=== PATIENT | female | born 1980 | race Caucasian/White ===

== ENCOUNTER 2020-10-23 18:56 | Inpatient (IN) | payer OTHER ==
[2020-10-23] MEDS ORDERED: ASPIRIN 81 MG PO STA (19:15)
--- NOTE | 2020-10-23 19:21 | ED ---
General Adult HPI - General Chief complaint: Arrhythmia/Palpitations Stated complaint: palpitations, SOB Time Seen by Provider: 10/23/20 19:08 Source: patient, family, RN notes reviewed Mode of arrival: ambulatory Limitations: no limitations - History of Present Illness Initial comments: Patient is a pleasant 40-year-old female presenting to the emergency Department with complaints of palpitations. Onset of symptoms was several days ago. Symptoms have progressively worsened. Patient is also having some dyspnea that is worse with exertion. Patient is also noticing some ankle swelling. No calf pain. No chest pain. No history of similar symptoms previously. Patient does have history of hyperthyroid and has not been on her medication recently - Related Data Allergies Allergy/AdvReac Type Severity Reaction Status Date / Time meperidine [From Demerol] Allergy syncope Verified 10/23/20 19:04 moxifloxacin [From Avelox] Allergy palpitation Verified 10/23/20 19:04 s Review of Systems ROS Statement: Those systems with pertinent positive or pertinent negative responses have been documented in the HPI. ROS Other: All systems not noted in ROS Statement are negative. Constitutional: Denies: fever Eyes: Denies: eye pain ENT: Denies: ear pain Respiratory: Reports: dyspnea. Denies: cough Cardiovascular: Reports: palpitations. Denies: chest pain Endocrine: Reports: fatigue Gastrointestinal: Denies: abdominal pain Genitourinary: Denies: urgency Musculoskeletal: Denies: back pain Skin: Denies: rash Neurological: Denies: weakness Past Medical History Past Medical History: Thyroid Disorder History of Any Multi-Drug Resistant Organisms: None Reported Past Psychological History: No Psychological Hx Reported Smoking Status: Never smoker Past Alcohol Use History: None Reported Past Drug Use History: None Reported General Exam Limitations: no limitations General appearance: alert, in no apparent distress Head exam: Present: normocephalic Eye exam: Present: normal appearance, PERRL Neck exam: Present: normal inspection Respiratory exam: Present: normal lung sounds bilaterally Cardiovascular Exam: Present: tachycardia, normal heart sounds GI/Abdominal exam: Present: soft. Absent: tenderness Extremities exam: Present: normal inspection. Absent: pedal edema, calf tenderness Neurological exam: Present: alert Psychiatric exam: Present: normal affect, normal mood Skin exam: Present: normal color Course Vital Signs 10/23/20 10/23/20 10/23/20 18:58 19:39 20:03 Temperature 97.7 F Pulse Rate 127 H 116 H 108 H Respiratory 24 18 18 Rate Blood Pressure 209/79 196/143 196/79 O2 Sat by Pulse 97 97 99 Oximetry EKG Findings - EKG Comments: EKG Findings:: A. fib with RVR, rate 102. QRS 84. QT 308. QTC 41. Renal axis. Normal QRS. No acute ST change. Medical Decision Making - Medical Decision Making Patient has A. fib with RVR, rate up to 1:30. Mild pedal edema. Patient has hyperthyroidism. Case was discussed in detail with Dr. Shukla who will admit covered Dr. baker. He does request propanolol 60 mg by mouth 3 times a day as well as methimazole 25 mg 3 times a day. He is aware of slight elevation with d-dimer and pending CT. Patient reevaluated. Patient and family updated. Intravenous Cardizem has been started. IV heparin will also be started. - Lab Data Result diagrams: 10/23/20 19:31 10/23/20 19:31 Lab Results 10/23/20 10/23/20 10/23/20 Range/Units 19:31 19:31 19:31 WBC 6.5 (3.8-10.6) k/uL RBC 4.13 (3.80-5.40) m/uL Hgb 10.8 L (11.4-16.0) gm/dL Hct 33.4 L (34.0-46.0) % MCV 80.9 (80.0-100.0) fL MCH 26.2 (25.0-35.0) pg MCHC 32.4 (31.0-37.0) g/dL RDW 14.4 (11.5-15.5) % Plt Count 193 (150-450) k/uL MPV 9.7 Neutrophils % 62 % Lymphocytes % 23 % Monocytes % 9 % Eosinophils % 3 % Basophils % 0 % Neutrophils # 4.1 (1.3-7.7) k/uL Lymphocytes # 1.5 (1.0-4.8) k/uL Monocytes # 0.6 (0-1.0) k/uL Eosinophils # 0.2 (0-0.7) k/uL Basophils # 0.0 (0-0.2) k/uL PT 10.9 (9.0-12.0) sec INR 1.0 (<1.2) APTT 21.4 L (22.0-30.0) sec D-Dimer 0.80 H (<0.60) mg/L FEU Sodium 137 (137-145) mmol/L Potassium 4.5 (3.5-5.1) mmol/L Chloride 105 (98-107) mmol/L Carbon Dioxide 23 (22-30) mmol/L Anion Gap 9 mmol/L BUN 14 (7-17) mg/dL Creatinine 0.25 L (0.52-1.04) mg/dL Est GFR (CKD-EPI)AfAm >90 (>60 ml/min/1.73 sqM) Est GFR (CKD-EPI)NonAf >90 (>60 ml/min/1.73 sqM) Glucose 105 H (74-99) mg/dL Calcium 9.0 (8.4-10.2) mg/dL Magnesium 1.5 L (1.6-2.3) mg/dL Total Bilirubin 1.1 (0.2-1.3) mg/dL AST 39 H (14-36) U/L ALT 28 (4-34) U/L Alkaline Phosphatase 312 H (38-126) U/L Troponin I (0.000-0.034) ng/mL NT-Pro-B Natriuret Pep pg/mL Total Protein 7.4 (6.3-8.2) g/dL Albumin 3.7 (3.5-5.0) g/dL Free T4 5.97 H (0.78-2.19) ng/dL Free T3 pg/mL >22.8 H (2.8-5.3) pg/ml 10/23/20 10/23/20 Range/Units 19:31 19:31 WBC (3.8-10.6) k/uL RBC (3.80-5.40) m/uL Hgb (11.4-16.0) gm/dL Hct (34.0-46.0) % MCV (80.0-100.0) fL MCH (25.0-35.0) pg MCHC (31.0-37.0) g/dL RDW (11.5-15.5) % Plt Count (150-450) k/uL MPV Neutrophils % % Lymphocytes % % Monocytes % % Eosinophils % % Basophils % % Neutrophils # (1.3-7.7) k/uL Lymphocytes # (1.0-4.8) k/uL Monocytes # (0-1.0) k/uL Eosinophils # (0-0.7) k/uL Basophils # (0-0.2) k/uL PT (9.0-12.0) sec INR (<1.2) APTT (22.0-30.0) sec D-Dimer (<0.60) mg/L FEU Sodium (137-145) mmol/L Potassium (3.5-5.1) mmol/L Chloride (98-107) mmol/L Carbon Dioxide (22-30) mmol/L Anion Gap mmol/L BUN (7-17) mg/dL Creatinine (0.52-1.04) mg/dL Est GFR (CKD-EPI)AfAm (>60 ml/min/1.73 sqM) Est GFR (CKD-EPI)NonAf (>60 ml/min/1.73 sqM) Glucose (74-99) mg/dL Calcium (8.4-10.2) mg/dL Magnesium (1.6-2.3) mg/dL Total Bilirubin (0.2-1.3) mg/dL AST (14-36) U/L ALT (4-34) U/L Alkaline Phosphatase (38-126) U/L Troponin I 0.021 (0.000-0.034) ng/mL NT-Pro-B Natriuret Pep 801 pg/mL Total Protein (6.3-8.2) g/dL Albumin (3.5-5.0) g/dL Free T4 (0.78-2.19) ng/dL Free T3 pg/mL (2.8-5.3) pg/ml - Radiology Data Radiology results: image reviewed (Chest x-ray shows no acute process) Critical Care Time Critical Care Time: Yes Total Critical Care Time: 35 Disposition Clinical Impression: Atrial fibrillation with RVR, Hyperthyroidism Disposition: ADMITTED IP TO THIS [facility] Condition: Serious Is patient prescribed a controlled substance at d/c from ED?: No Referrals: Elba Serrano MD [Primary Care Provider] - 1-2 days Decision Time: 20:32
[2020-10-23 19:51] LABS: Basophils % (A) 0 %; Eosinophils # (A) 0.2 k/uL (0-0.7); Eosinophils % (A) 3 %; HCT 33.4 % (34.0-46.0); HGB 10.8 gm/dL (11.4-16.0); Lymphocytes # (A) 1.5 k/uL (1.0-4.8); Lymphocytes % (A) 23 %; MCH 26.2 pg (25.0-35.0); MCHC 32.4 g/dL (31.0-37.0); MCV 80.9 fL (80.0-100.0); Mean Platelet Volume 9.7; Monocytes # (A) 0.6 k/uL (0-1.0); Monocytes % (A) 9 %; Neutrophils # (A) 4.1 k/uL (1.3-7.7); Neutrophils % (A) 62 %; Platelet Count 193 k/uL (150-450); RBC 4.13 m/uL (3.80-5.40); RDW 14.4 % (11.5-15.5); WBC 6.5 k/uL (3.8-10.6)
[2020-10-23 20:02] LABS: ALT 28 U/L (4-34); AST 39 U/L (14-36); African American GFR (CKD) >90 (>60 ml/min/1.73 sqM); Albumin 3.7 g/dL (3.5-5.0); Alkaline Phosphatase 312 U/L (38-126); Anion Gap 9 mmol/L; Blood Urea Nitrogen 14 mg/dL (7-17); Carbon Dioxide 23 mmol/L (22-30); Chloride 105 mmol/L (98-107); Glucose 105 mg/dL (74-99); Magnesium 1.5 mg/dL (1.6-2.3); Non-African American GFR(CKD) >90 (>60 ml/min/1.73 sqM); Potassium 4.5 mmol/L (3.5-5.1); Sodium 137 mmol/L (137-145); Total Bilirubin 1.1 mg/dL (0.2-1.3); Total Protein 7.4 g/dL (6.3-8.2)
[2020-10-23] MEDS: DILTIAZEM 125 MG in SODIUM CHLORIDE 0.9% 100 ML IV SCH (20:03)
--- NOTE | 2020-10-23 20:03 | XR ---
EXAMINATION TYPE: XR chest 2V DATE OF EXAM: 10/23/2020 COMPARISON: NONE HISTORY: Palpitations. Short of breath TECHNIQUE: FINDINGS: Heart and mediastinum are within normal limits. Lungs are clear. Diaphragm is normal. There are chest leads. Bony thorax is intact. IMPRESSION: Normal chest.
[2020-10-23] MEDS ORDERED: MAGNESIUM SULFATE-D5W PMX 1 GM in DEXTROSE/WATER 1 100ML.BAG IVPB ONE (20:10)
[2020-10-23 20:11] LABS: Prothrombin Time 10.9 sec (9.0-12.0)
[2020-10-23 20:17] LABS: D-Dimer 0.8 mg/L FEU (<0.60)
[2020-10-23 20:18] LABS: Partial Thromboplastin Time 21.4 sec (22.0-30.0)
[2020-10-23 20:19] LABS: T4, Free (Free Thyroxine) 5.97 ng/dL (0.78-2.19)
[2020-10-23] MEDS ORDERED: HEPARIN SODIUM,PORCINE 5,000 UNIT/ML 1 ML VIAL IV ONE (20:32)
[2020-10-23] MEDS ORDERED: ACETAMINOPHEN TAB 325 MG TAB PO PRN (20:35)
[2020-10-23] MEDS ORDERED: NALOXONE 0.4 MG/ML 1 ML VIAL IV PRN (20:35)
[2020-10-23] MEDS: HEPARIN SOD,PORK IN 0.45% NACL 25,000 UNIT in 0.45% NACL 1 250ML.BAG IV SCH (20:49)
[2020-10-23] MEDS: SODIUM CHLORIDE 0.9% 1,000 ML IV SCH (20:55)
--- NOTE | 2020-10-23 21:37 | CT ---
EXAMINATION TYPE: CT angio chest DATE OF EXAM: 10/23/2020 COMPARISON: None HISTORY: Dyspnea. CT DLP: 211.1 mGycm Automated exposure control for dose reduction was used. CONTRAST: Performed with IV Contrast, patient injected with 100 mL of Isovue 370. Images obtained from the thoracic inlet to the diaphragm with IV contrast and 3-D post processed imag es. There is no mediastinal adenopathy. Thoracic aorta is intact. There is no aneurysm or dissection. The re is normal contrast opacification of the pulmonary arteries. There are no filling defects. There is no pleural effusion or pneumothorax. There are a few bronchial lymph nodes that measure less than 1 cm. Lungs are clear of consolidation. There is no evidence of a pulmonary mass. The bony thorax is intact . There is no thoracic compression fracture. IMPRESSION: Negative exam. No evidence of pulmonary embolism.
[2020-10-24 02:43] LABS: Basophils % (A) 0 %; Eosinophils # (A) 0.2 k/uL (0-0.7); Eosinophils % (A) 3 %; HCT 31.9 % (34.0-46.0); HGB 10.4 gm/dL (11.4-16.0); Lymphocytes # (A) 2.2 k/uL (1.0-4.8); Lymphocytes % (A) 28 %; MCH 26.8 pg (25.0-35.0); MCHC 32.7 g/dL (31.0-37.0); MCV 82.1 fL (80.0-100.0); Mean Platelet Volume 10.1; Monocytes # (A) 0.6 k/uL (0-1.0); Monocytes % (A) 8 %; Neutrophils # (A) 4.5 k/uL (1.3-7.7); Neutrophils % (A) 58 %; Platelet Count 185 k/uL (150-450); RBC 3.88 m/uL (3.80-5.40); RDW 14.4 % (11.5-15.5); WBC 7.7 k/uL (3.8-10.6)
[2020-10-24] MEDS: HEPARIN SODIUM,PORCINE 5,000 UNIT/ML 1 ML VIAL IV PRN ×2 (04:37→15:44)
[2020-10-24] MEDS: methIMAzole 5 MG TAB PO SCH ×4 (09:43→20:43)
[2020-10-24] MEDS: PROPRANOLOL 20 MG TAB PO SCH ×3 (09:43→20:43)
--- NOTE | 2020-10-24 10:44 | P.CRDCN ---
History of Present Illness History of present illness: HISTORY OF PRESENTING ILLNESS This is a pleasant 40-year-old female past medical history significant for hyperthyroidism for approximately 10 years who presents secondary to palpitations and chest discomfort for the last 3 days. She is not seeing a sharemilker previously. She admits she is fairly busy with her kids and forgot to follow her methimazole for the last 3 weeks and therefore has not been taking it. She started noticing a feeling like an elephant was on her chest or the past 2 days along with some lower extremity swelling and shortness of breath. She was found to be in new onset of atrial fibrillation with mild RVR heart rates in the 110s and 120s. Her TSH was noted to be low with high T4 and T3. She admits there has been discussion of possible thyroid ablation in the past however she has not wanted to do this. Patient had a CTA performed which showed no significant PE, no significant findings. She denies any history of hypertension, hyperlipidemia, TIA, stroke, PAD, CAD, diabetes mellitus. Has a history of brother with a "hole in the heart "with a stroke in the age of 30. She admits the feeling of an elephant on her chest has completely resolved. DIAGNOSTICS EKG reveals A. fib with mild RVR, chest CTA: No acute process, no PE Laboratory reviewed, hemoglobin 10.8, white blood cell 6.5, platelets 193, d- dimer 0.8, creatinine 0.25, magnesium 1.5, proBNP AL-1, troponin 0.02, 0.018, 0.019, TSH less than 0.015, free T4 5 0.9, free T3 greater than 22 Current cardiac medications include heparin drip, Cardizem drip REVIEW OF SYSTEMS At the time of my exam: CONSTITUTIONAL: Denies fever or chills. CARDIOVASCULAR: Denies chest pain, shortness of breath, orthopnea, PND or palpitations. RESPIRATORY: Denies cough. GASTROINTESTINAL: Denies abdominal pain, diarrhea, constipation, nausea or vomiting. MUSCULOSKELETAL: Denies myalgias. NEUROLOGIC: Denies numbness, tingling or weakness. ENDOCRINE: Denies fatigue, weight change, polydipsia or polyurina. GENITOURINARY: Denies burning, hematuria or urgency with micturation. HEMATOLOGIC: Denies history of anemia or bleeding. PHYSICAL EXAMINATION Vital signs reviewed CONSTITUTIONAL: No apparent distress. HEENT: Head is normocephalic. Pupils are equal, round. Sclerae anicteric. Mucous membranes of the mouth are moist. No JVD. No carotid bruit. CHEST EXAMINATION: Lungs are clear to auscultation. No chest wall tenderness is noted on palpation or with deep breathing. HEART EXAMINATION: Irregular rate and rhythm. S1, S2 heard. +2/6 systolic murmur, no gallops or rub. ABDOMEN: Soft, nontender. Positive bowel sounds. EXTREMITIES: 2+ peripheral pulses, no lower extremity edema and no calf te nderness. NEUROLOGIC EXAMINATION: Patient is awake, alert and oriented x3. ASSESSMENT 1. New-onset A. fib with RVR 2. Acute on chronic heart failure, presumed diastolic. May be high output failure from hyperthyroidism 3. Hyperthyroid, uncontrolled 4. Noncompliance with hyperthyroid medication 5. Systolic murmur 6. Anemia 7. Chest pain feeling like an elephant on her chest concerning for angina however may be related to A. fib. Troponin Negative 3 PLAN Patient with hyperthyroidism likely affecting her A. fib. Continue with Cardizem drip and propranolol. Patient needs better control of her hyperthyroidism and continue with methimazole. IV contrast use may precipitate more of a thyroid storm however we will continue to monitor. Patient has symptoms suspicious of acute heart failure with increased lower extremity edema and shortness breath. Suspect component of diastolic heart failure and possible high output failure from her hyperthyroidism. Patient will likely need anginal workup with chest pain improved with slowing of her heart rate. Possible stress test on Monday. Past Medical History Past Medical History: Thyroid Disorder History of Any Multi-Drug Resistant Organisms: None Reported Past Surgical History: No Surgical Hx Reported Past Anesthesia/Blood Transfusion Reactions: No Reported Reaction Past Psychological History: No Psychological Hx Reported Smoking Status: Never smoker Past Alcohol Use History: None Reported Past Drug Use History: None Reported - Past Family History Mother Family Medical History: Hypertension Father Family Medical History: Diabetes Mellitus Medications and Allergies Home Medications Medication Instructions Recorded Confirmed Type Acetaminophen Tab [Tylenol Tab] 1,000 mg PO Q6HR PRN 10/23/20 10/23/20 History Ibuprofen [Motrin Ib] 400 mg PO Q8H PRN 10/23/20 10/23/20 History Methimazole [Tapazole] 10 mg PO BID 10/23/20 10/23/20 History Allergies Allergy/AdvReac Type Severity Reaction Status Date / Time meperidine [From Demerol] Allergy syncope Verified 10/23/20 20:44 moxifloxacin [From Avelox] Allergy palpitation Verified 10/23/20 20:44 s Physical Exam Vitals: Vital Signs Temp Pulse Pulse Resp BP BP Pulse Ox 10/24/20 08:06 95 16 157/73 95 10/24/20 06:00 89 16 147/70 10/24/20 05:00 91 16 10/24/20 04:00 98.2 F 100 16 166/81 98 10/24/20 01:00 98.2 F 98 16 168/76 98 10/24/20 00:00 98.2 F 98 16 98 10/23/20 23:27 98.2 F 98 16 180/69 98 10/23/20 21:26 99 18 185/82 97 10/23/20 20:03 108 H 18 196/79 99 10/23/20 19:39 116 H 18 196/143 97 10/23/20 18:58 97.7 F 127 H 24 209/79 97 Intake and Output 10/23/20 10/24/20 10/24/20 22:59 06:59 14:59 Intake Total 58.218 100 Balance 58.218 100 Intake: Intake, IV Titration 58.218 100 Amount Heparin Sod,Pork in 0.45% 58.218 NaCl 25,000 unit In 0.45 % NaCl 1 250ml.bag @ 12 UNITS/KG/HR 7.512 mls/hr IV .Q24H [facility] Rx#: [id number] Sodium Chloride 0.9% 1, 100 000 ml @ 50 mls/hr IV . Q20H [facility] Rx#:[id number] Other: # Voids 2 Weight 62.596 kg 62.596 kg Results 10/24/20 02:09 10/23/20 19:31 Cardiac Enzymes 10/23/20 10/23/20 10/23/20 Range/Units 19:31 19:31 23:52 AST 39 H (14-36) U/L Troponin I 0.021 0.018 (0.000-0.034) ng/mL 10/24/20 Range/Units 02:09 AST (14-36) U/L Troponin I 0.019 (0.000-0.034) ng/mL Coagulation 10/23/20 10/24/20 10/24/20 Range/Units 19:31 02:09 10:09 PT 10.9 (9.0-12.0) sec APTT 21.4 L 26.4 27.5 (22.0-30.0) sec CBC 10/23/20 10/24/20 Range/Units 19:31 02:09 WBC 6.5 7.7 (3.8-10.6) k/uL RBC 4.13 3.88 (3.80-5.40) m/uL Hgb 10.8 L 10.4 L (11.4-16.0) gm/dL Hct 33.4 L 31.9 L (34.0-46.0) % Plt Count 193 185 (150-450) k/uL Comprehensive Metabolic Panel 10/23/20 Range/Units 19:31 Sodium 137 (137-145) mmol/L Potassium 4.5 (3.5-5.1) mmol/L Chloride 105 (98-107) mmol/L Carbon Dioxide 23 (22-30) mmol/L BUN 14 (7-17) mg/dL Creatinine 0.25 L (0.52-1.04) mg/dL Glucose 105 H (74-99) mg/dL Calcium 9.0 (8.4-10.2) mg/dL AST 39 H (14-36) U/L ALT 28 (4-34) U/L Alkaline Phosphatase 312 H (38-126) U/L Total Protein 7.4 (6.3-8.2) g/dL Albumin 3.7 (3.5-5.0) g/dL Current Medications Generic Name Dose Route Start Last Admin Trade Name Freq PRN Reason Stop Dose Admin Acetaminophen 650 mg 10/23/20 20:35 Acetaminophen Tab 325 Mg Tab PO Q6HR PRN Mild Pain or Fever > 100.5 Heparin Sodium (Porcine) 0 unit 10/23/20 20:32 10/24/20 04:37 Heparin Sodium,Porcine 5,000 Unit/Ml 1 Ml Vial IV 3,129.5 unit PER PROTOCOL PRN Administration Low PTT Protocol Diltiazem HCl 125 mg/ Sodium 125 mls @ 5 mls/hr 10/23/20 19:45 10/23/20 20:03 Chloride IV 5 mg/hr .Q24H [facility] 5 mls/hr Administration 5 MG/HR Heparin Sodium/Sodium Chloride 250 mls @ 7.512 mls/hr 10/23/20 20:45 10/24/20 04:34 25,000 unit/ Sodium Chloride IV 15 units/kg/hr .Q24H [facility] 9.389 mls/hr Titration Protocol 12 UNITS/KG/HR Sodium Chloride 1,000 mls @ 50 mls/hr 10/23/20 20:45 10/23/20 20:55 Saline 0.9% IV 50 mls/hr .Q20H [facility] Administration Methimazole 25 mg 10/23/20 21:00 10/24/20 09:44 Methimazole 5 Mg Tab PO Not Given TID [facility] Naloxone HCl 0.2 mg 10/23/20 20:35 Naloxone 0.4 Mg/Ml 1 Ml Vial IV Q2M PRN Opioid Reversal Propranolol HCl 60 mg 10/24/20 09:00 10/24/20 09:43 Propranolol 20 Mg Tab PO 60 mg TID [facility] Administration Intake and Output 10/23/20 10/24/20 10/24/20 22:59 06:59 14:59 Intake Total 58.218 100 Balance 58.218 100 Intake: Intake, IV Titration 58.218 100 Amount Heparin Sod,Pork in 0.45% 58.218 NaCl 25,000 unit In 0.45 % NaCl 1 250ml.bag @ 12 UNITS/KG/HR 7.512 mls/hr IV .Q24H [facility] Rx#: [id number] Sodium Chloride 0.9% 1, 100 000 ml @ 50 mls/hr IV . Q20H [facility] Rx#:[id number] Other: # Voids 2 Weight 62.596 kg 62.596 kg Patient Weight 10/25/20 06:59 Weight 62.596 kg 10/24/20 02:09 10/23/20 19:31
--- NOTE | 2020-10-24 16:28 | P.HPIM ---
History of Present Illness H&P Date: 10/24/20 Chief Complaint: Chest discomfort/palpitations 40-year-old female past medical history significant for hyperthyroidism for approximately 10 years who presents secondary to palpitations and chest discomfort for the last 3 days. 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 She admits she is fairly busy with her kids and forgot to follow her methimazole for the last 3 weeks and therefore has not been taking it. She started noticing a feeling like an elephant was on her chest or the past 2 days along with some lower extremity swelling and shortness of breath. She was found to be in new onset of atrial fibrillation with mild RVR heart rates in the 110s and 120s. Her TSH was noted to be low with high T4 and T3. She admits there has been discussion of possible thyroid ablation in the past however she has not wanted to do this. Patient had a CTA performed which showed no significant PE, no significant findings. She denies any history of hypertension, hyperlipidemia, TIA, stroke, PAD, CAD, diabetes mellitus. Has a history of brother with a "hole in the heart "with a stroke in the age of 30. She admits the feeling of an elephant on her chest has completely resolved. EKG reveals A. fib with mild RVR, chest CTA: No acute process, no PE Laboratory reviewed, hemoglobin 10.8, white blood cell 6.5, platelets 193, d- dimer 0.8, creatinine 0.25, magnesium 1.5, proBNP AL-1, troponin 0.02, 0.018, 0.019, TSH less than 0.015, free T4 5 0.9, free T3 greater than 22 Patient is started on IV heparin drip, Cardizem drip and is admitted for further cardiac evaluation Review of Systems REVIEW OF SYSTEMS: CONSTITUTIONAL: No fever, no malaise, no fatigue. HEENT: No recent visual problems or hearing problems. Denied any sore throat. CARDIOVASCULAR: Positive for chest pain and palpitations PULMONARY: No shortness of breath, no cough, no hemoptysis. GASTROINTESTINAL: No diarrhea, no nausea, no vomiting, no abdominal pain. NEUROLOGICAL: No headaches, no weakness, no numbness. HEMATOLOGICAL: Denies any bleeding or petechiae. GENITOURINARY: Denies any burning micturition, frequency, or urgency. MUSCULOSKELETAL/RHEUMATOLOGICAL: Denies any joint pain, swelling, or any muscle pain. ENDOCRINE: Denies any polyuria or polydipsia. The rest of the 14-point review of systems is negative. Past Medical History Past Medical History: Thyroid Disorder History of Any Multi-Drug Resistant Organisms: None Reported Past Surgical History: No Surgical Hx Reported Past Anesthesia/Blood Transfusion Reactions: No Reported Reaction Past Psychological History: No Psychological Hx Reported Smoking Status: Never smoker Past Alcohol Use History: None Reported Past Drug Use History: None Reported - Past Family History Mother Family Medical History: Hypertension Father Family Medical History: Diabetes Mellitus Medications and Allergies Home Medications Medication Instructions Recorded Confirmed Type Acetaminophen Tab [Tylenol Tab] 1,000 mg PO Q6HR PRN 10/23/20 10/23/20 History Ibuprofen [Motrin Ib] 400 mg PO Q8H PRN 10/23/20 10/23/20 History Methimazole [Tapazole] 10 mg PO BID 10/23/20 10/23/20 History Allergies Allergy/AdvReac Type Severity Reaction Status Date / Time meperidine [From Demerol] Allergy syncope Verified 10/23/20 20:44 moxifloxacin [From Avelox] Allergy palpitation Verified 10/23/20 20:44 s Physical Exam Vitals: Vital Signs Temp Pulse Pulse Resp BP BP Pulse Ox 10/24/20 08:06 95 16 157/73 95 10/24/20 06:00 89 16 147/70 10/24/20 05:00 91 16 10/24/20 04:00 98.2 F 100 16 166/81 98 10/24/20 01:00 98.2 F 98 16 168/76 98 10/24/20 00:00 98.2 F 98 16 98 10/23/20 23:27 98.2 F 98 16 180/69 98 10/23/20 21:26 99 18 185/82 97 10/23/20 20:03 108 H 18 196/79 99 10/23/20 19:39 116 H 18 196/143 97 10/23/20 18:58 97.7 F 127 H 24 209/79 97 Intake and Output 10/23/20 10/24/20 10/24/20 22:59 06:59 14:59 Intake Total 58.218 100 Balance 58.218 100 Intake: Intake, IV Titration 58.218 100 Amount Heparin Sod,Pork in 0.45% 58.218 NaCl 25,000 unit In 0.45 % NaCl 1 250ml.bag @ 12 UNITS/KG/HR 7.512 mls/hr IV .Q24H [facility] Rx#: [id number] Sodium Chloride 0.9% 1, 100 000 ml @ 50 mls/hr IV . Q20H [facility] Rx#:[id number] Other: # Voids 2 Weight 62.596 kg 62.3 kg 62.596 kg - Constitutional General appearance: Present: average body habitus, cooperative, no acute distress - EENT Eyes: Present: anicteric sclerae, EOMI, PERRLA, normal appearance ENT: Present: hearing grossly normal, normal oropharynx Ears: bilateral: normal - Neck Neck: Present: normal ROM. Absent: lymphadenopathy, rigidity, thyromegaly Carotids: negative: bruit present Thyroid: bilateral: normal size, negative: enlarged, nodule - Respiratory Respiratory: bilateral: CTA, negative: rales, rhonchi, wheezing - Cardiovascular Rhythm: regular Heart sounds: normal: S1, S2 Abnormal Heart Sounds: Absent: systolic murmur, diastolic murmur - Gastrointestinal General gastrointestinal: Present: normal bowel sounds, soft. Absent: distended , organomegaly, tenderness - Genitourinary Genitourinary Comment(s): deferred - Integumentary Integumentary: Present: normal turgor. Absent: jaundiced, rash, ulcer - Neurologic Neurologic: Present: CNII-XII intact. Absent: focal deficits - Musculoskeletal Musculoskeletal: Present: gait normal, strength equal bilaterally - Psychiatric Psychiatric: Present: A&O x's 3, appropriate affect, intact judgment & insight Results CBC & Chem 7: 10/24/20 02:09 10/23/20 19:31 Labs: Abnormal Lab Results - Last 24 Hours (Table) 10/23/20 10/23/20 10/23/20 Range/Units 19:31 19:31 19:31 Hgb 10.8 L (11.4-16.0) gm/dL Hct 33.4 L (34.0-46.0) % APTT 21.4 L (22.0-30.0) sec D-Dimer 0.80 H (<0.60) mg/L FEU Creatinine 0.25 L (0.52-1.04) mg/dL Glucose 105 H (74-99) mg/dL Magnesium 1.5 L (1.6-2.3) mg/dL AST 39 H (14-36) U/L Alkaline Phosphatase 312 H (38-126) U/L TSH <0.015 L (0.465-4.680) mIU/L Free T4 5.97 H (0.78-2.19) ng/dL Free T3 pg/mL >22.8 H (2.8-5.3) pg/ml 10/24/20 Range/Units 02:09 Hgb 10.4 L (11.4-16.0) gm/dL Hct 31.9 L (34.0-46.0) % APTT (22.0-30.0) sec D-Dimer (<0.60) mg/L FEU Creatinine (0.52-1.04) mg/dL Glucose (74-99) mg/dL Magnesium (1.6-2.3) mg/dL AST (14-36) U/L Alkaline Phosphatase (38-126) U/L TSH (0.465-4.680) mIU/L Free T4 (0.78-2.19) ng/dL Free T3 pg/mL (2.8-5.3) pg/ml Thrombosis Risk Factor Assmnt - Choose All That Apply Any of the Below Risk Factors Present?: No Other Risk Factors: No Thrombosis Risk Factor Assessment Level: Very Low Risk Assessment and Plan Assessment: 1. New onset atrial fibrillation with RVR - Patient is started on IV Cardizem infusion and heparin; admitted to telemetry; monitor EKG and cardiac enzymes; cardiology on board 2. Acute on chronic diastolic CHF 3. Hyperthyroidism; uncontrolled due to poor compliance; patient will be started on methimazole and beta blockers; counseling done on need for compliance with thyroid medications 4. Chest pain; possibly rate related; troponin will be monitored along with telemetry; cardiology on board DVT prophylaxis; SCDs/IV heparin CODE STATUS; full code
--- NOTE | 2020-10-24 17:23 | ECHOF ---
Referral Reason:a fib MEASUREMENTS -------- HEIGHT: 160.0 cm WEIGHT: 62.6 kg BP: IVSd: 1.1 cm (0.6 - 1.1) LVIDd: 3.8 cm (3.9 - 5.3) LVPWd: 1.2 cm (0.6 - 1.1) IVSs: 1.4 cm LVIDs: 2.5 cm LVPWs: 1.8 cm LAESV Index (A-L): 35.12 ml/m Ao Diam: 2.2 cm (2.0 - 3.7) AV Cusp: 1.5 cm (1.5 - 2.6) LA Diam: 2.3 cm (2.7 - 3.8) AV maxP.01 mmHg AV meanP.27 mmHg AR PHT: 281 ms RAP: 5.00 mmHg RVSP: 31.25 mmHg FINDINGS -------- Atrial fibrillation. This was a technically good study. The left ventricular size is normal. There is borderline concentric left ventricular hypertrophy. Overall left ventricular systolic function is normal with, an EF between 55 - 60 %. Left ventricul ar fillimg pressure cannot be estimated due to Atrial fibrillation. The right ventricle is normal in size. LA is moderately dilated 34-39 ml/m2 The right atrial size is normal. Interatrial and interventricular septum intact. The aortic valve is trileaflet and appears structurally normal. There is mild aortic regurgitation. Peak/mean gradient across the Aortic Valve is 35.01mmHg / 18.27mmHg. Increased LVOT velocity, gr adient can be related to a high cardiac output state. The mitral valve is normal. Moderate mitral regurgitation is present. The tricuspid valve appears structurally normal. Mild tricuspid regurgitation present. Right vent ricular systolic pressure is normal at < 35 mmHg. There is no pulmonic regurgitation present. The aortic root size is normal. Normal inferior vena cava with normal inspiratory collapse consistent with estimated right atrial pre ssure of 5 mmHg. There is a trivial pericardial effusion present. CONCLUSIONS -------- 1. Atrial fibrillation. 2. The left ventricular size is normal. 3. There is borderline concentric left ventricular hypertrophy. 4. Overall left ventricular systolic function is normal with, an EF between 55 - 60 %. 5. Left ventricular fillimg pressure cannot be estimated due to Atrial fibrillation. 6. LA is moderately dilated 34-39 ml/m2 7. The aortic valve is trileaflet and appears structurally normal. 8. There is mild aortic regurgitation. 9. Peak/mean gradient across the Aortic Valve is 35.01mmHg / 18.27mmHg. 10. Increased LVOT velocity, gradient can be related to a high cardiac output state. 11. Moderate mitral regurgitation is present. 12. Mild tricuspid regurgitation present. 13. There is a trivial pericardial effusion present. STATEMENT DISTRIBUTION CLERK: Luh Martinez RDCS
[2020-10-25] MEDS: SODIUM CHLORIDE 0.9% 1,000 ML IV SCH ×2 (01:25→15:09)
[2020-10-25] MEDS: HEPARIN SOD,PORK IN 0.45% NACL 25,000 UNIT in 0.45% NACL 1 250ML.BAG IV SCH (04:22)
[2020-10-25 09:02] LABS: Basophils % (A) 0 %; Eosinophils # (A) 0.2 k/uL (0-0.7); Eosinophils % (A) 2 %; HCT 34.4 % (34.0-46.0); HGB 10.5 gm/dL (11.4-16.0); Hypochromasia Slight; Lymphocytes # (A) 2.6 k/uL (1.0-4.8); Lymphocytes % (A) 35 %; MCH 25.6 pg (25.0-35.0); MCHC 30.6 g/dL (31.0-37.0); MCV 83.8 fL (80.0-100.0); Monocytes # (A) 0.6 k/uL (0-1.0); Monocytes % (A) 8 %; Neutrophils # (A) 3.7 k/uL (1.3-7.7); Neutrophils % (A) 51 %; Platelet Count 179 k/uL (150-450); RBC 4.11 m/uL (3.80-5.40); RDW 14.5 % (11.5-15.5); WBC 7.3 k/uL (3.8-10.6)
[2020-10-25] MEDS: methIMAzole 5 MG TAB PO SCH ×2 (09:06→21:06)
[2020-10-25] MEDS: PROPRANOLOL 20 MG TAB PO SCH ×3 (09:06→21:06)
[2020-10-25 09:11] LABS: African American GFR (CKD) >90 (>60 ml/min/1.73 sqM); Anion Gap 7 mmol/L; Blood Urea Nitrogen 18 mg/dL (7-17); Calcium 8.9 mg/dL (8.4-10.2); Carbon Dioxide 25 mmol/L (22-30); Chloride 105 mmol/L (98-107); Glucose 119 mg/dL (74-99); Non-African American GFR(CKD) >90 (>60 ml/min/1.73 sqM); Potassium 4.2 mmol/L (3.5-5.1); Sodium 137 mmol/L (137-145)
[2020-10-25] MEDS: HEPARIN SODIUM,PORCINE 5,000 UNIT/ML 1 ML VIAL IV PRN (11:20)
--- NOTE | 2020-10-25 14:36 | P.PN ---
Subjective Progress Note Date: 10/25/20 HISTORY OF PRESENT ILLNESS: 10/24/2020 This is a pleasant 40-year-old female past medical history significant for hyperthyroidism for approximately 10 years who presents secondary to pa lpitations and chest discomfort for the last 3 days. She is not seeing a dinker previously. She admits she is fairly busy with her kids and forgot to follow her methimazole for the last 3 weeks and therefore has not been taking it. She started noticing a feeling like an elephant was on her chest or the past 2 days along with some lower extremity swelling and shortness of breath. She was found to be in new onset of atrial fibrillation with mild RVR heart rates in the 110s and 120s. Her TSH was noted to be low with high T4 and T3. She admits there has been discussion of possible thyroid ablation in the past however she has not wanted to do this. Patient had a CTA performed which showed no significant PE, no significant findings. She denies any history of hypertension, hyperlipidemia, TIA, stroke, PAD, CAD, diabetes mellitus. Has a history of brother with a "hole in the heart "with a stroke in the age of 30. She admits the feeling of an elephant on her chest has completely resolved. 10/25/2020 Patient examined this morning at the bedside. Patient remains in atrial fibrillation with controlled ventricular rates. IV Cardizem has been discontinued. She remains on IV heparin. Patient denies any further episodes of chest discomfort. She denies shortness of breath. Vital signs are stable. She is on room air with oxygen saturations greater than 92%. Echocardiogram completed reveals an ejection fraction 55-60%, mild aortic regurgitation, inc reased LVOT velocity, gradient may be related to high cardiac output state, moderate mitral regurgitation, and mild tricuspid regurgitation PHYSICAL EXAM: VITAL SIGNS: Reviewed. GENERAL: Well-developed in no acute distress. NECK: Supple. No JVD or thyromegaly LUNGS: Respirations even and unlabored. Lungs essentially clear to auscultation bilaterally. HEART: Irregular rate and rhythm. S1 and S2 heard. Systolic murmur noted. EXTREMITIES: Normal range of motion. No clubbing or cyanosis. Peripheral pulses intact. No lower extremity edema ASSESSMENT: New-onset atrial fibrillation with RVR Acute on chronic diastolic heart failure, suspected high output failure from hyperthyroidism Hyperthyroidism, uncontrolled Noncompliance with hyperthyroid medication Systolic murmur Chest pain, troponins negative 3, resolved PLAN: Continue telemetry monitoring Continue current dose of propanolol Discontinue IV heparin. Patient does not require anticoagulation per Dr. Santoro No plans for stress test at this time Reinforced need for better control of hyperthyroidism in compliance with her medications. Patient agreeable to follow up with her jewel bearing facer outpatient Further recommendations pending patient's course Nurse practitioner note has been reviewed by physician. Signing provider agrees with the documented findings, assessment, and plan of care. Objective - Vital Signs Vital signs: Vital Signs Temp 98.6 F 10/25/20 08:00 Pulse 76 10/25/20 12:00 Resp 18 10/25/20 08:00 BP 143/73 10/25/20 12:00 Pulse Ox 97 10/25/20 12:00 Intake & Output 10/24/20 10/25/20 10/25/20 18:59 06:59 18:59 Intake Total 1118.811 87.721 304.41 Output Total 200 400 Balance 918.811 87.721 -95.59 Weight 62.596 kg 63.1 kg Intake: Intake, IV Titration 278.811 87.721 64.41 Amount Diltiazem 125 mg In 74.75 Sodium Chloride 0.9% 100 ml @ 5 MG/HR 5 mls/hr IV .Q24H [facility] Rx#:[id number] Heparin Sod,Pork in 0.45% 104.061 87.721 64.41 NaCl 25,000 unit In 0.45 % NaCl 1 250ml.bag @ 12 UNITS/KG/HR 7.512 mls/hr IV .Q24H [facility] Rx#: [id number] Sodium Chloride 0.9% 1, 100 000 ml @ 50 mls/hr IV . Q20H [facility] Rx#:[id number] Oral 840 240 Output: Urine 200 400 Other: # Voids 2 1 - Labs CBC & Chem 7: 10/25/20 08:28 10/25/20 08:28 Labs: Abnormal Lab Results - Last 24 Hours (Table) 10/24/20 10/25/20 10/25/20 Range/Units 21:16 08:28 08:28 Hgb 10.5 L (11.4-16.0) gm/dL MCHC 30.6 L (31.0-37.0) g/dL APTT 43.7 H (22.0-30.0) sec BUN 18 H (7-17) mg/dL Creatinine 0.29 L (0.52-1.04) mg/dL Glucose 119 H (74-99) mg/dL 10/25/20 Range/Units 08:28 Hgb (11.4-16.0) gm/dL MCHC (31.0-37.0) g/dL APTT 32.5 H (22.0-30.0) sec BUN (7-17) mg/dL Creatinine (0.52-1.04) mg/dL Glucose (74-99) mg/dL
--- NOTE | 2020-10-25 18:09 | P.PN ---
Subjective Progress Note Date: 10/25/20 Principal diagnosis: New-onset atrial fibrillation/RVR Acute on chronic diastolic CHF Hyperthyroidism; uncontrolled due to noncompliance 40-year-old female past medical history significant for hyperthyroidism for approximately 10 years who presents secondary to palpitations and chest discomfort for the last 3 days. She is not seeing a lab clerk previously. She admits she is fairly busy with her kids and forgot to follow her methimazole for the last 3 weeks and therefore has not been taking it. She started noticing a feeling like an elephant was on her chest or the past 2 days along with some lower extremity swelling and shortness of breath. She was found to be in new onset of atrial fibrillation with mild RVR heart rates in the 110s and 120s. Her TSH was noted to be low with high T4 and T3. She admits there has been discussion of possible thyroid ablation in the past however she has not wanted to do this. Patient had a CTA performed which showed no significant PE, no significant findings. She denies any history of hypertension, hyperlipidemia, TIA, stroke, PAD, CAD, diabetes mellitus. Has a history of brother with a "hole in the heart "with a stroke in the age of 30. She admits the feeling of an elephant on her chest has completely resolved. EKG reveals A. fib with mild RVR, chest CTA: No acute process, no PE Laboratory reviewed, hemoglobin 10.8, white blood cell 6.5, platelets 193, d- dimer 0.8, creatinine 0.25, magnesium 1.5, proBNP AL-1, troponin 0.02, 0.018, 0.019, TSH less than 0.015, free T4 5 0.9, free T3 greater than 22 Patient is started on IV heparin drip, Cardizem drip and is admitted for further cardiac evaluation 10/25/2020 Patient is seen and evaluated in room at bedside; sting comfortably in bed; no complaint of chest pain or shortness of breath; patient remains in atrial fibrillation with controlled ventricular rate; cardiology is following and IV Cardizem has been discontinued; patient remains on IV heparin; patient is discussed with Dr. Santoro and is recommending to discontinue IV heparin; further anticoagulation is recommended at this time; had detailed discussion with patient regarding compliance of hyperthyroid therapy; patient has been restarted on propranolol; patient is agreeable to follow-up with endocrinology as an outpatient; cardiology recommending continued monitoring for another 24 hours with possible discharge tomorrow morning if remains stable Objective - Vital Signs Vital signs: Vital Signs Temp 98.6 F 10/25/20 08:00 Pulse 74 10/25/20 08:00 Resp 18 10/25/20 08:00 BP 146/71 10/25/20 08:00 Pulse Ox 97 10/25/20 08:00 Intake & Output 10/24/20 10/25/20 10/25/20 18:59 06:59 18:59 Intake Total 1118.811 87.721 64.41 Output Total 200 Balance 918.811 87.721 64.41 Weight 62.596 kg 63.1 kg Intake: Intake, IV Titration 278.811 87.721 64.41 Amount Diltiazem 125 mg In 74.75 Sodium Chloride 0.9% 100 ml @ 5 MG/HR 5 mls/hr IV .Q24H [facility] Rx#:[id number] Heparin Sod,Pork in 0.45% 104.061 87.721 64.41 NaCl 25,000 unit In 0.45 % NaCl 1 250ml.bag @ 12 UNITS/KG/HR 7.512 mls/hr IV .Q24H [facility] Rx#: [id number] Sodium Chloride 0.9% 1, 100 000 ml @ 50 mls/hr IV . Q20H [facility] Rx#:[id number] Oral 840 Output: Urine 200 Other: # Voids 2 1 - Exam - Constitutional General appearance: Present: average body habitus, cooperative, no acute distress - EENT Eyes: Present: anicteric sclerae, EOMI, PERRLA, normal appearance ENT: Present: hearing grossly normal, normal oropharynx Ears: bilateral: normal - Neck Neck: Present: normal ROM. Absent: lymphadenopathy, rigidity, thyromegaly Carotids: negative: bruit present Thyroid: bilateral: normal size, negative: enlarged, nodule - Respiratory Respiratory: bilateral: CTA, negative: rales, rhonchi, wheezing - Cardiovascular Rhythm: regular Heart sounds: normal: S1, S2 Abnormal Heart Sounds: Absent: systolic murmur, diastolic murmur - Gastrointestinal General gastrointestinal: Present: normal bowel sounds, soft. Absent: distended, organomegaly, tenderness - Genitourinary Genitourinary Comment(s): deferred - Integumentary Integumentary: Present: normal turgor. Absent: jaundiced, rash, ulcer - Neurologic Neurologic: Present: CNII-XII intact. Absent: focal deficits - Musculoskeletal Musculoskeletal: Present: gait normal, strength equal bilaterally - Psychiatric Psychiatric: Present: A&O x's 3, appropriate affect, intact judgment & insight - Labs CBC & Chem 7: 10/25/20 08:28 10/25/20 08:28 Labs: Abnormal Lab Results - Last 24 Hours (Table) 10/24/20 10/25/20 10/25/20 Range/Units 21:16 08:28 08:28 Hgb 10.5 L (11.4-16.0) gm/dL MCHC 30.6 L (31.0-37.0) g/dL APTT 43.7 H (22.0-30.0) sec BUN 18 H (7-17) mg/dL Creatinine 0.29 L (0.52-1.04) mg/dL Glucose 119 H (74-99) mg/dL 10/25/20 Range/Units 08:28 Hgb (11.4-16.0) gm/dL MCHC (31.0-37.0) g/dL APTT 32.5 H (22.0-30.0) sec BUN (7-17) mg/dL Creatinine (0.52-1.04) mg/dL Glucose (74-99) mg/dL Assessment and Plan Assessment: 1. New onset atrial fibrillation with RVR - Patient is started on IV Cardizem infusion and heparin; admitted to telemetry; monitor EKG and cardiac enzymes; cardiology on board 2. Acute on chronic diastolic CHF 3. Hyperthyroidism; uncontrolled due to poor compliance; patient will be started on methimazole and beta blockers; counseling done on need for compliance with thyroid medications 4. Chest pain; possibly rate related; troponin will be monitored along with telemetry; cardiology on board DVT prophylaxis; SCDs/IV heparin CODE STATUS; full code
[2020-10-25] MEDS: DILTIAZEM 125 MG in SODIUM CHLORIDE 0.9% 100 ML IV SCH (19:54)
[2020-10-26] MEDS: PROPRANOLOL 20 MG TAB PO SCH (08:18)
[2020-10-26 08:31] LABS: African American GFR (CKD) >90 (>60 ml/min/1.73 sqM); Anion Gap 8 mmol/L; Blood Urea Nitrogen 13 mg/dL (7-17); Calcium 8.9 mg/dL (8.4-10.2); Carbon Dioxide 27 mmol/L (22-30); Chloride 102 mmol/L (98-107); Glucose 122 mg/dL (74-99); Non-African American GFR(CKD) >90 (>60 ml/min/1.73 sqM); Potassium 4.7 mmol/L (3.5-5.1); Sodium 137 mmol/L (137-145)
[2020-10-26 08:35] LABS: Basophils % (A) 0 %; Eosinophils # (A) 0.2 k/uL (0-0.7); Eosinophils % (A) 2 %; HCT 34.5 % (34.0-46.0); HGB 10.8 gm/dL (11.4-16.0); Hypochromasia Marked; Lymphocytes # (A) 2.5 k/uL (1.0-4.8); Lymphocytes % (A) 36 %; MCHC 31.2 g/dL (31.0-37.0); MCV 83.5 fL (80.0-100.0); Mean Platelet Volume 10.5; Monocytes # (A) 0.6 k/uL (0-1.0); Monocytes % (A) 8 %; Neutrophils # (A) 3.4 k/uL (1.3-7.7); Neutrophils % (A) 50 %; Platelet Count 196 k/uL (150-450); RBC 4.13 m/uL (3.80-5.40); RDW 14.4 % (11.5-15.5); WBC 6.8 k/uL (3.8-10.6)
[2020-10-26 09:27] VITALS: RESP 20
[2020-10-26] MEDS: methIMAzole 5 MG TAB PO SCH (12:02)
[2020-10-26 12:05] VITALS: BP 125/69; PULSE 69; TEMP 98
--- NOTE | 2020-10-26 15:35 | P.PN ---
Subjective Progress Note Date: 10/26/20 HISTORY OF PRESENT ILLNESS: 10/24/2020 This is a pleasant 40-year-old female past medical history significant for hyperthyroidism for approximately 10 years who presents secondary to pa lpitations and chest discomfort for the last 3 days. 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 She admits she is fairly busy with her kids and forgot to follow her methimazole for the last 3 weeks and therefore has not been taking it. She started noticing a feeling like an elephant was on her chest or the past 2 days along with some lower extremity swelling and shortness of breath. She was found to be in new onset of atrial fibrillation with mild RVR heart rates in the 110s and 120s. Her TSH was noted to be low with high T4 and T3. She admits there has been discussion of possible thyroid ablation in the past however she has not wanted to do this. Patient had a CTA performed which showed no significant PE, no significant findings. She denies any history of hypertension, hyperlipidemia, TIA, stroke, PAD, CAD, diabetes mellitus. Has a history of brother with a "hole in the heart "with a stroke in the age of 30. She admits the feeling of an elephant on her chest has completely resolved. 10/25/2020 Patient examined this morning at the bedside. Patient remains in atrial fibrillation with controlled ventricular rates. IV Cardizem has been discontinued. She remains on IV heparin. Patient denies any further episodes of chest discomfort. She denies shortness of breath. Vital signs are stable. She is on room air with oxygen saturations greater than 92%. Echocardiogram completed reveals an ejection fraction 55-60%, mild aortic regurgitation, inc reased LVOT velocity, gradient may be related to high cardiac output state, moderate mitral regurgitation, and mild tricuspid regurgitation 10/26/2020 Patient examined this morning at the bedside. She denies chest pain or pressure. She denies shortness of breath. Heart rate remains controlled. PHYSICAL EXAM: VITAL SIGNS: Reviewed. GENERAL: Well-developed in no acute distress. NECK: Supple. No JVD or thyromegaly LUNGS: Respirations even and unlabored. Lungs essentially clear to auscultation bilaterally. HEART: Irregular rate and rhythm. S1 and S2 heard. Systolic murmur noted. EXTREMITIES: Normal range of motion. No clubbing or cyanosis. Peripheral pul ses intact. No lower extremity edema ASSESSMENT: New-onset atrial fibrillation with RVR Acute on chronic diastolic heart failure, suspected high output failure from hyperthyroidism Hyperthyroidism, uncontrolled Noncompliance with hyperthyroid medication Systolic murmur Chest pain, troponins negative 3, resolved PLAN: Continue current cardiac medications Patient does not require anticoagulation per Dr. Santoro Reinforced need for better control of hyperthyroidism in compliance with her medications. Patient agreeable to follow up with her brake shoe rebuilder outpatient Patient is stable for discharge home today from a cardiac standpoint. She is to follow up on an outpatient basis. Nurse practitioner note has been reviewed by physician. Signing provider agrees with the documented findings, assessment, and plan of care. Objective - Vital Signs Vital signs: Vital Signs Temp 98 F 10/26/20 12:04 Pulse 69 10/26/20 12:04 Resp 20 10/26/20 12:04 BP 125/69 10/26/20 12:04 Pulse Ox 97 10/26/20 12:04 Intake & Output 10/25/20 10/26/20 10/26/20 18:59 06:59 18:59 Intake Total 784.41 610 Output Total 1300 Balance -515.59 610 Weight 63.8 kg Intake: Intake, IV Titration 64.41 Amount Heparin Sod,Pork in 0.45% 64.41 NaCl 25,000 unit In 0.45 % NaCl 1 250ml.bag @ 12 UNITS/KG/HR 7.512 mls/hr IV .Q24H [facility] Rx#: [id number] Oral 720 610 Output: Urine 1300 Other: Voiding Method Toilet # Voids 1 - Labs CBC & Chem 7: 10/26/20 07:29 10/26/20 07:29 Labs: Abnormal Lab Results - Last 24 Hours (Table) 10/25/20 10/26/20 10/26/20 Range/Units 16:14 07:29 07:29 Hgb 10.8 L (11.4-16.0) gm/dL APTT 40.3 H (22.0-30.0) sec Creatinine 0.33 L (0.52-1.04) mg/dL Glucose 122 H (74-99) mg/dL
--- NOTE | 2020-10-26 17:45 | P.DS ---
Providers Date of admission: 10/23/20 20:37 Attending physician: Calvin Shukla Consults: 10/23/20 20:35 Consult Physician Urgent Consulting Provider: Ozzie Galarza Consult Reason/Comments: a fib w rvr Do you want consulting provider notified?: Yes Primary care physician: Maggie Faustin [facility] Course: 40-year-old female past medical history significant for hyperthyroidism for approximately 10 years who presents secondary to palpitations and chest discomfort for the last 3 days. She is not seeing a rn social services previously. She admits she is fairly busy with her kids and forgot to follow her methimazole for the last 3 weeks and therefore has not been taking it. She started noticing a feeling like an elephant was on her chest or the past 2 days along with some lower extremity swelling and shortness of breath. She was found to be in new onset of atrial fibrillation with mild RVR heart rates in the 110s and 120s. Her TSH was noted to be low with high T4 and T3. She admits there has been discussion of possible thyroid ablation in the past however she has not wanted to do this. Patient had a CTA performed which showed no significant PE, no significant findings. She denies any history of hypertension, hyperlipidemia, TIA, stroke, PAD, CAD, diabetes mellitus. Has a history of brother with a "hole in the heart "with a stroke in the age of 30. She admits the feeling of an elephant on her chest has completely resolved. EKG reveals A. fib with mild RVR, chest CTA: No acute process, no PE Laboratory reviewed, hemoglobin 10.8, white blood cell 6.5, platelets 193, d- dimer 0.8, creatinine 0.25, magnesium 1.5, proBNP AL-1, troponin 0.02, 0.018, 0.019, TSH less than 0.015, free T4 5 0.9, free T3 greater than 22 Patient is started on IV heparin drip, Cardizem drip and is admitted for further cardiac evaluation 10/26/2020 Patient appears to have high output heart failure from hyperthyroidism and atrial fibrillation secondary to hyperthyroidism patient with was old dose will be increased patient was also started on propranolol and patient will follow with endocrinology and cardiology as an outpatient and patient will be discharged today. PHYSICAL EXAMINATION: GENERAL: The patient is alert and oriented x3, not in any acute distress. Well developed, well nourished. HEENT: Pupils are round and equally reacting to light. EOMI. No scleral icterus. No conjunctival pallor. Normocephalic, atraumatic. No pharyngeal erythema. No thyromegaly. CARDIOVASCULAR: S1 and S2 present. No murmurs, rubs, or gallops. PULMONARY: Chest is clear to auscultation, no wheezing or crackles. ABDOMEN: Soft, nontender, nondistended, normoactive bowel sounds. No palpable organomegaly. MUSCULOSKELETAL: No joint swelling or deformity. EXTREMITIES: No cyanosis, clubbing, or pedal edema. NEUROLOGICAL: Gross neurological examination did not reveal any focal deficits. SKIN: No rashes. -Atrial fibrillation with rapid ventricular rate secondary to hyperthyroidism patient has proximal A. fib management as mentioned above -Acute diastolic dysfunction secondary to hyperthyroidism. The rest of the medical problems and hospital physician. Please refer to documentation from Dr. Yao from yesterday Patient Condition at Discharge: Serious Plan - Discharge Summary Discharge Rx Participant: No New Discharge Prescriptions: New Propranolol [Inderal] 60 mg PO TID #90 tab Continue Ibuprofen [Motrin Ib] 400 mg PO Q8H PRN PRN Reason: Pain Acetaminophen Tab [Tylenol] 1,000 mg PO Q6HR PRN PRN Reason: Pain Changed Methimazole [Tapazole] 10 mg PO TID #0 Discharge Medication List Acetaminophen Tab [Tylenol] 1,000 mg PO Q6HR PRN 10/23/20 [History] Ibuprofen [Motrin Ib] 400 mg PO Q8H PRN 10/23/20 [History] Methimazole [Tapazole] 10 mg PO TID #0 10/26/20 [Rx] Propranolol [Inderal] 60 mg PO TID #90 tab 10/26/20 [Rx] Follow up Appointment(s)/Referral(s): Elba Nguyen MD [Primary Care Provider] - 10/30/20 1:50 pm Porfirio Mayen MD [REFERRING] - 1 Week (PLEASE GET REFERAL FROM DR NGUYEN TO SEE DR MAYEN) Rajinder Santoro DO [STAFF PHYSICIAN] - 1-2 Days (OFFICE WILL CALL WITH DATE AND TIME) Patient Instructions/Handouts: A-fib (Atrial Fibrillation) (DC), Hypertensive Crisis (DC) Discharge Disposition: HOME SELF-CARE
== END 2020-10-26 13:53 | disposition home or self-care (01) | DRG 308 ==
LOC: EC 18:56 → 3SCARD 20:37
PROVIDERS: ADMIT Internal Medicine; ATTEND Internal Medicine
DX: I48.91 Unspecified atrial fibrillation (principal); I50.33 Acute on chronic diastolic (congestive) heart failure; E05.90 Thyrotoxicosis, unspecified without thyrotoxic crisis or storm; D64.9 Anemia, unspecified; T36 Poisoning by, adverse effect of and underdosing of systemic antibiotics; Z88.1 Allergy status to other antibiotic agents; Z88.5 Allergy status to narcotic agent; Z82.3 Family history of stroke; Z82.49 Family history of ischemic heart disease and other diseases of the circulatory system; Z83.3 Family history of diabetes mellitus; Z91.128 Patient's intentional underdosing of medication regimen for other reason; Z20.822 Contact with and (suspected) exposure to COVID-19
CPT/HCPCS: 36415; 71046; 71275; 80048; 80053; 83735; 83880; 84439; 84443; 84481; 84484; 85025; 85379; 85610; 85730; 87635; 93005; 93306; 96365; 96366; 96374; 96375; 99285; 99291

== ENCOUNTER → 2020-12-22 | Outpatient (CLI) | payer OTHER | END | disposition home or self-care (01) | LOC: LABWHC1 16:05 | PROVIDERS: ATTEND Internal Medicine | DX: E05.90 Thyrotoxicosis, unspecified without thyrotoxic crisis or storm (principal) | CPT/HCPCS: 36415; 84439; 84443; 84481 ==

== ENCOUNTER → 2021-01-12 | Outpatient (CLI) | payer OTHER | END | disposition home or self-care (01) | LOC: LABWHC1 16:06 | PROVIDERS: ATTEND Internal Medicine | DX: E05.90 Thyrotoxicosis, unspecified without thyrotoxic crisis or storm (principal) | CPT/HCPCS: 36415; 84439; 84443; 84481 ==

== ENCOUNTER → 2021-02-11 | Outpatient (CLI) | payer OTHER ==
[2021-02-11 15:17] LABS: HCT 36.9 % (37.2-46.3); HGB 11.6 g/dL (12.0-15.0); MCH 26.2 pg (27.0-32.0); MCHC 31.4 g/dL (32.0-37.0); MCV 83.5 fL (80.0-97.0); Mean Platelet Volume 11.9 fL (9.5-12.2); Platelet Count 289 X 10*3/uL (140-440); RBC 4.42 X 10*6/uL (4.10-5.20); RDW 14.7 % (11.5-14.5); WBC 6.23 X 10*3/uL (4.50-10.00)
[2021-02-11 17:13] LABS: ALT 24 U/L (8-44); AST 27 U/L (13-35)
== END | disposition home or self-care (01) ==
LOC: LABWHC1 09:29
PROVIDERS: ATTEND Internal Medicine
DX: E05.90 Thyrotoxicosis, unspecified without thyrotoxic crisis or storm (principal)
CPT/HCPCS: 36415; 84439; 84443; 84445; 84450; 84460; 84481; 85027

== ENCOUNTER 2024-06-25 09:21 | Inpatient (IN) | payer OTHER ==
[2024-06-25 09:31] LABS: Glucose,Whole Blood 530 mg/dL (70-110)
[2024-06-25] MEDS ORDERED: Potassium Replacement Protocol 1 EACH MISC MISCELLANE PRN (09:31)
[2024-06-25] MEDS ORDERED: DEXTROSE 50% SYRINGE 50 ML IVP PRN (09:31)
[2024-06-25] MEDS ORDERED: Magnesium Replacement Protocol 1 EACH MISC MISCELLANE PRN (09:31)
[2024-06-25 09:52] LABS: ABG PO2 146 mmHg (83-108); Allen Test Performed? Yes
[2024-06-25 09:54] LABS: ABG PH 6.96 (7.35-7.45)
[2024-06-25 09:55] LABS: ABG PCO2 <15 mmHg (35-45)
[2024-06-25 10:09] LABS: Basophils # (A) 0.1 k/uL (0-0.2); Basophils % (A) 0 %; Eosinophils % (A) 0 %; HCT 44.5 % (34.0-46.0); HGB 12.8 gm/dL (11.4-16.0); Hypochromasia Marked; Lymphocytes # (A) 1.2 k/uL (1.0-4.8); Lymphocytes % (A) 5 %; MCH 27.1 pg (25.0-35.0); MCHC 28.8 g/dL (31.0-37.0); MCV 94.1 fL (80.0-100.0); Mean Platelet Volume 10.3; Monocytes # (A) 0.9 k/uL (0-1.0); Monocytes % (A) 4 %; Neutrophils # (A) 23.5 k/uL (1.3-7.7); Neutrophils % (A) 91 %; Platelet Count 294 k/uL (150-450); RBC 4.73 m/uL (3.80-5.40); RDW 14.1 % (11.5-15.5); WBC 25.9 k/uL (3.8-10.6)
[2024-06-25] MEDS: INSULIN REGULAR 100 UNIT in SODIUM CHLORIDE 0.9% 100 ML IV SCH (10:10)
[2024-06-25] MEDS: INSULIN REGULAR BOLUS (FROM DRIP BAG) IV ONE (10:13)
[2024-06-25] MEDS: SODIUM CHLORIDE 0.9% 500 ML 500 ML IV STA (10:14)
[2024-06-25] MEDS: SODIUM CHLORIDE 0.9% 1,000 ML IV STA ×2 (10:14→11:42)
[2024-06-25 10:21] LABS: AST 106 U/L (14-36); African American GFR (CKD) 50 (>60 ml/min/1.73 sqM); Albumin 4.3 g/dL (3.5-5.0); Alkaline Phosphatase 299 U/L (38-126); Blood Urea Nitrogen 16 mg/dL (7-17); Calcium 8.6 mg/dL (8.4-10.2); Chloride 98 mmol/L (98-107); Magnesium 2.7 mg/dL (1.6-2.3); Non-African American GFR(CKD) 44 (>60 ml/min/1.73 sqM); Potassium 5.6 mmol/L (3.5-5.1); Sodium 136 mmol/L (137-145); Total Bilirubin 1.3 mg/dL (0.2-1.3); Total Protein 7.6 g/dL (6.3-8.2)
[2024-06-25 10:23] LABS: Appearance,Urine Clear (Clear); Bilirubin,Urine Negative (Negative); Blood,Urine Negative (Negative); Color,Urine Colorless; Glucose,Urine (UA) 4+ (Negative); INR 1.4 (<1.2); Ketones,Urine 1+ (Negative); Leukocyte Esterase,Urine Negative (Negative); Nitrite,Urine Negative (Negative); Partial Thromboplastin Time 32.4 sec (22.0-30.0); Protein,Urine Negative (Negative); Prothrombin Time 14.2 sec (10.0-12.5); Specific Gravity,Urine 1.016 (1.001-1.035); Urobilinogen,Urine <2.0 mg/dL (<2.0)
[2024-06-25 10:35] LABS: ALT 68 U/L (4-34); Carbon Dioxide <5 mmol/L (22-30); Glucose 624 mg/dL (74-99)
--- NOTE | 2024-06-25 10:52 | CT ---
EXAMINATION TYPE: CT brain wo con CT DLP: 1272.4 mGycm, Automated exposure control for dose reduction was used. DATE OF EXAM: 06/25/2024 10:39 AM COMPARISON: None. CLINICAL INDICATION:Female, 44 years old with history of weakness, Weakness TECHNIQUE: Brain: Multiple axial CT images of the brain were obtained without IV contrast. . Coronal and sagitta l reformats reviewed. FINDINGS: Brain: Extra-axial spaces: No abnormal extra-axial fluid collections. Ventricular system: Within normal limits Cerebral parenchyma: No acute intraparenchymal hemorrhage or mass effect. The kinney-white junction is well differentiated. Nonspecific bilateral basal ganglia calcifications. Cerebellum: Unremarkable. Mass effect: No evidence of midline shift. Intracranial vasculature: unremarkable Soft tissues: Normal. Calvarium/osseous structures: No depressed skull fracture. Paranasal sinuses and mastoid air cells: The mastoid air cells are clear. Complete opacification of t he left maxillary sinus with hypertrophic christensen. Moderate mucosal thickening in the left frontal sinu s. Remaining paranasal sinuses are clear. Visualized orbits: Orbital contents are intact. IMPRESSION: 1. No acute intracranial process. 2. Paranasal sinus disease with chronic left maxillary sinusitis. [facility], , 06/25/2024 10:50 AM
[2024-06-25 11:00] LABS: Glucose,Whole Blood 462 mg/dL (70-110)
--- NOTE | 2024-06-25 11:02 | XR ---
EXAMINATION TYPE: XR chest 1V portable DATE OF EXAM: 06/25/2024 10:58 AM COMPARISON: Chest radiographs from 10/23/2020, CTA chest 10/23/2020 TECHNIQUE: XR chest 1V portable Portable AP radiograph of the chest. CLINICAL INDICATION:Female, 44 years old with history of ams; FINDINGS: Lungs/Pleura: There is no evidence of pleural effusion, focal consolidation, or pneumothorax. Pulmonary vascularity: Unremarkable. Heart/mediastinum: Cardiomediastinal silhouette is unremarkable. Musculoskeletal: No acute osseous pathology. IMPRESSION: No acute cardiopulmonary disease/process. [facility], , 06/25/2024 11:00 AM
[2024-06-25] MEDS: CEFEPIME 2 GM in SODIUM CHLORIDE 0.9% 100 ML IVPB SCH (11:07)
[2024-06-25] MEDS: SODIUM CHLORIDE 0.9% 1,000 ML IV ONE (11:08)
--- NOTE | 2024-06-25 11:09 | ED ---
General Adult HPI - General Chief complaint: Recheck/Abnormal Lab/Rx Stated complaint: DKA Time Seen by Provider: 06/25/24 09:27 Source: patient, EMS, RN notes reviewed Mode of arrival: EMS Limitations: altered mental status - History of Present Illness Initial comments: 44-year-old female presenting to the emergency department with change in mental status. EMS found patient to be hyperglycemic. Patient does have recent diagnosis of diabetes. Patient is a poor historian and does not provide additional history. No reported recent trauma or illness. - Related Data Home Medications Medication Instructions Recorded Confirmed Acetaminophen Tab [Tylenol] 500 - 1,000 mg PO Q6HR PRN 10/23/20 06/25/24 Aspirin EC [Ecotrin Low Dose] 81 mg PO DAILY 06/25/24 06/25/24 Dapagliflozin Propanediol [Farxiga] 5 mg PO DAILY 06/25/24 06/25/24 Dextroamphetamine/Amphetamine 20 mg PO BID@0900,1400 06/25/24 06/25/24 [Adderall] Fexofenadine HCl [Jyotsna Allergy] 180 mg PO DAILY 06/25/24 06/25/24 INSULIN LISPRO (HumaLOG) [humaLOG] 10 units SQ AC-TID 06/25/24 06/25/24 Insulin Glargine,Hum.rec.anlog 20 units SQ DAILY 06/25/24 06/25/24 [Lantus Solostar Pen] Pantoprazole [Protonix] 40 mg PO HS 06/25/24 06/25/24 Rivaroxaban [Xarelto] 10 mg PO DAILY 06/25/24 06/25/24 Tirzepatide [Mounjaro] 5 mg SQ Q7D 06/25/24 06/25/24 atenoloL [Tenormin] 50 mg PO BID 06/25/24 06/25/24 methIMAzole [Tapazole] 10 mg PO BID 06/25/24 06/25/24 Allergies Allergy/AdvReac Type Severity Reaction Status Date / Time meperidine [From Demerol] Allergy syncope Verified 06/25/24 10:46 moxifloxacin [From Avelox] Allergy palpitation Verified 06/25/24 10:46 s Review of Systems ROS Statement: Those systems with pertinent positive or pertinent negative responses have been documented in the HPI. ROS Other: All systems not noted in ROS Statement are negative. Limitations: ROS unobtainable due to patients medical condition Past Medical History Past Medical History: Thyroid Disorder History of Any Multi-Drug Resistant Organisms: None Reported Past Surgical History: No Surgical Hx Reported Past Anesthesia/Blood Transfusion Reactions: No Reported Reaction Past Psychological History: No Psychological Hx Reported Smoking Status: Never smoker Past Alcohol Use History: None Reported Past Drug Use History: None Reported - Past Family History Mother Family Medical History: Hypertension Father Family Medical History: Diabetes Mellitus General Exam Limitations: altered mental status General appearance: alert Head exam: Present: atraumatic Eye exam: Present: normal appearance, PERRL ENT exam: Present: normal oropharynx Neck exam: Present: normal inspection. Absent: tenderness, meningismus Respiratory exam: Present: normal lung sounds bilaterally Cardiovascular Exam: Present: tachycardia GI/Abdominal exam: Present: soft. Absent: tenderness Extremities exam: Present: normal inspection, full ROM. Absent: tenderness Neurological exam: Present: altered Expanded Neurological exam: Present: protecting the airway Eye Response: (4) open spontaneously Motor Response: (4) withdraws to pain Verbal Response: incomprehensible sounds Psychiatric exam: Present: flat affect Skin exam: Present: normal color Course Vital Signs 06/25/24 06/25/24 06/25/24 09:24 10:15 10:19 Temperature 93.9 F L Pulse Rate 146 H 146 H Respiratory 30 H 30 H Rate Blood Pressure 111/58 87/50 82/38 O2 Sat by Pulse 100 Oximetry 06/25/24 06/25/24 06/25/24 10:30 10:55 11:00 Temperature 98.6 F Pulse Rate 151 H 147 H Respiratory 44 H 31 H Rate Blood Pressure 82/38 118/51 118/51 O2 Sat by Pulse 94 L 100 Oximetry 06/25/24 06/25/24 11:12 11:47 Temperature 94.1 F L 94.8 F L Pulse Rate 156 H Respiratory 28 H Rate Blood Pressure 126/68 O2 Sat by Pulse 100 Oximetry EKG Findings - EKG Results: EKG: interpreted by ERMD, sinus rhythm, normal axis, normal QRS, normal ST/T EKG shows: tachycardia Procedures - ABG Interpretation Ph: 6.96 PCO2: 15 PO2: 146 Interpretation: metabolic acidosis - Sepsis Sepsis Focused Exam #1 Time Sepsis Criteria Met: 11:00 Sepsis Focused Exam Date: 06/25/24 Sepsis Focused Exam Time: :23 Sepsis Focused Exam Complete: Yes Vital Signs & RN Notes Reviewed: Yes Capillary Refill: None: Toes, < 2 Seconds: Fingers Peripheral Pulses: Normal: Radial (R), Radial (L) Skin Color: Normal for Patient Respiratory Exam: normal lung sounds Cardiovascular Exam: tachycardia Medical Decision Making - Medical Decision Making Was pt. sent in by a medical professional or institution (, NELIA, SPECIAL PROGRAMS DIRECTOR, urgent care, hospital, or [place] health care facility...) When possible be specific @ -No Did you speak to anyone other than the patient for history (EMS, parent, family, police, friend...)? What history was obtained from this source @ -EMS helps provide history as patient has limited verbal capability Did you review nursing and triage notes (agree or disagree)? Why? @ -I reviewed and agree with nursing and triage notes Were old charts reviewed (outside hosp., previous admission, EMS record, old EKG, old radiological studies, urgent care reports/EKG's, [place] health [facility] facility records)? Report findings @ -No old charts were reviewed Differential Diagnosis (chest pain, altered mental status, abdominal pain women, abdominal pain men, vaginal bleeding, weakness, fever, dyspnea, syncope, headache, dizziness, GI bleed, back pain, seizure, CVA, palpatations, mental health, musculoskeletal)? @ -Differential Altered Mental Status: Hypoglycemia, DKA, hypercapnia, ETOH, overdose, CO poisoning, trauma, myxedema coma, HTN encephalopathy, infection, encephalitis, psychosis, intercranial hemorrhage, hepatic encephalopathy, meningitis, CVA, this is not meant to be an all-inclusive list EKG interpreted by me (3pts min.). @ -As above X-rays interpreted by me (1pt min.). @ -Chest x-ray without acute abnormality CT interpreted by me (1pt min.). @ -CT scan of the brain does not reveal acute abnormality U/S interpreted by me (1pt. min.). @ -None done What testing was considered but not performed or refused? (CT, X-rays, U/S, labs)? Why? @ -None What meds were considered but not given or refused? Why? @ -None Did you discuss the management of the patient with other professionals (professionals i.e. , NELIA, SPECIAL PROGRAMS DIRECTOR, lab, RT, psych nurse, social media intern, chief gauger, teacher, parcel post officer, pillowcase turner)? Give summary @ -Dr. Jacobsen, who will admit his patient. Dr. izquierdo for critical care who did evaluate patient in the emergency department. Was smoking cessation discussed for >3mins.? @ -No Was critical care preformed (if so, how long)? @ -40 minutes critical care time Were there social determinants of health that impacted care today? How? (Homele ssness, low income, unemployed, alcoholism, drug addiction, transportation, low edu. Level, literacy, decrease access to med. care, long-term, rehab)? @ -No Was there de-escalation of care discussed even if they declined (Discuss DNR or withdrawal of care, Hospice)? DNR status @ -No What co-morbidities impacted this encounter? (DM, HTN, Smoking, COPD, CAD, Cancer, CVA, ARF, Chemo, Hep., AIDS, mental health diagnosis, sleep apnea, morbid obesity)? @ -History of recent diagnosis of diabetes Was patient admitted / discharged? Hospital course, mention meds given and route, prescriptions, significant lab abnormalities, going to OR and other pertinent info. @ -Patient presents altered. Patient is tachycardic and hyperglycemic concern for diabetic ketoacidosis. Patient is hypothermic on arrival and sepsis cannot be ruled out although there is no source of infection. Patient did have blood cultures and lactic acid and IV antibiotics all ordered. Patient will be admitted to intensive care unit. Admission orders written. Undiagnosed new problem with uncertain prognosis? @ -No Drug Therapy requiring intensive monitoring for toxicity (Heparin, Nitro, Insulin, Cardizem)? @ -Insulin drip Were any procedures done? @ -No Diagnosis/symptom? @ -Diabetic ketoacidosis Acute, or Chronic, or Acute on Chronic? @ -Acute Uncomplicated (without systemic symptoms) or Complicated (systemic symptoms)? @ -Complicated with altered mental status systemically Side effects of treatment? @ -No Exacerbation, Progression, or Severe Exacerbation? @ -No Poses a threat to life or bodily function? How? (Chest pain, [place], [place], pneumonia, PE, COPD, DKA, ARF, appy, cholecystitis, CVA, Diverticulitis, Homicidal, Suicidal, threat to staff... and all critical care pts) @ -Threat to multiple organ functions - Lab Data Result diagrams: 06/25/24 09:37 06/25/24 09:37 Lab Results 06/25/24 06/25/24 06/25/24 Range/Units 09:25 09:37 09:37 WBC 25.9 H (3.8-10.6) k/uL RBC 4.73 (3.80-5.40) m/uL Hgb 12.8 (11.4-16.0) gm/dL Hct 44.5 (34.0-46.0) % MCV 94.1 (80.0-100.0) fL MCH 27.1 (25.0-35.0) pg MCHC 28.8 L (31.0-37.0) g/dL RDW 14.1 (11.5-15.5) % Plt Count 294 (150-450) k/uL MPV 10.3 Neutrophils % 91 % Lymphocytes % 5 % Monocytes % 4 % Eosinophils % 0 % Basophils % 0 % Neutrophils # 23.5 H (1.3-7.7) k/uL Lymphocytes # 1.2 (1.0-4.8) k/uL Monocytes # 0.9 (0-1.0) k/uL Eosinophils # 0.0 (0-0.7) k/uL Basophils # 0.1 (0-0.2) k/uL Hypochromasia Marked PT 14.2 H (10.0-12.5) sec INR 1.4 H (<1.2) APTT 32.4 H (22.0-30.0) sec Sample Site ABG pH (7.35-7.45) ABG pCO2 (35-45) mmHg ABG pO2 (83-108) mmHg ABG O2 Saturation (94-97) % Job Test Hemoglobin (11.4-16.0) gm/dL FiO2 % Sodium (137-145) mmol/L Potassium (3.5-5.1) mmol/L Chloride (98-107) mmol/L Carbon Dioxide (22-30) mmol/L Anion Gap mmol/L BUN (7-17) mg/dL Creatinine (0.52-1.04) mg/dL Est GFR (CKD-EPI)AfAm (>60 ml/min/1.73 sqM) Est GFR (CKD-EPI)NonAf (>60 ml/min/1.73 sqM) Glucose (74-99) mg/dL POC Glucose (mg/dL) 530 H* (70-110) mg/dL POC Glu Pricing Analyst ID Dewey Alexander Plasma Lactic Acid Abelardo (0.7-2.0) mmol/L Calcium (8.4-10.2) mg/dL Magnesium (1.6-2.3) mg/dL Total Bilirubin (0.2-1.3) mg/dL AST (14-36) U/L ALT (4-34) U/L Alkaline Phosphatase (38-126) U/L Troponin I (0.000-0.034) ng/mL Total Protein (6.3-8.2) g/dL Albumin (3.5-5.0) g/dL Urine Color Urine Appearance (Clear) Urine pH (5.0-8.0) Ur Specific [place] (1.001-1.035) Urine Protein (Negative) Urine Glucose (UA) (Negative) Urine Ketones (Negative) Urine Blood (Negative) Urine Nitrite (Negative) Urine Bilirubin (Negative) Urine Urobilinogen (<2.0) mg/dL Ur Leukocyte Esterase (Negative) Acetone, Qual (Negative) Influenza Type A (PCR) (Not Detectd) Influenza Type B (PCR) (Not Detectd) RSV (PCR) (Not Detectd) SARS-CoV-2 (PCR) (Not Detectd) 06/25/24 06/25/24 06/25/24 Range/Units 09:37 09:37 09:37 WBC (3.8-10.6) k/uL RBC (3.80-5.40) m/uL Hgb (11.4-16.0) gm/dL Hct (34.0-46.0) % MCV (80.0-100.0) fL MCH (25.0-35.0) pg MCHC (31.0-37.0) g/dL RDW (11.5-15.5) % Plt Count (150-450) k/uL MPV Neutrophils % % Lymphocytes % % Monocytes % % Eosinophils % % Basophils % % Neutrophils # (1.3-7.7) k/uL Lymphocytes # (1.0-4.8) k/uL Monocytes # (0-1.0) k/uL Eosinophils # (0-0.7) k/uL Basophils # (0-0.2) k/uL Hypochromasia PT (10.0-12.5) sec INR (<1.2) APTT (22.0-30.0) sec Sample Site ABG pH (7.35-7.45) ABG pCO2 (35-45) mmHg ABG pO2 (83-108) mmHg ABG O2 Saturation (94-97) % Job Test Hemoglobin (11.4-16.0) gm/dL FiO2 % Sodium 136 L (137-145) mmol/L Potassium 5.6 H (3.5-5.1) mmol/L Chloride 98 (98-107) mmol/L Carbon Dioxide <5 L* (22-30) mmol/L Anion Gap mmol/L BUN 16 (7-17) mg/dL Creatinine 1.46 H (0.52-1.04) mg/dL Est GFR (CKD-EPI)AfAm 50 (>60 ml/min/1.73 sqM) Est GFR (CKD-EPI)NonAf 44 (>60 ml/min/1.73 sqM) Glucose 624 H* (74-99) mg/dL POC Glucose (mg/dL) (70-110) mg/dL POC Glu Pricing Analyst ID Plasma Lactic Acid Abelardo 22.0 H* (0.7-2.0) mmol/L Calcium 8.6 (8.4-10.2) mg/dL Magnesium 2.7 H (1.6-2.3) mg/dL Total Bilirubin 1.3 (0.2-1.3) mg/dL AST 106 H (14-36) U/L ALT 68 H (4-34) U/L Alkaline Phosphatase 299 H (38-126) U/L Troponin I (0.000-0.034) ng/mL Total Protein 7.6 (6.3-8.2) g/dL Albumin 4.3 (3.5-5.0) g/dL Urine Color Colorless Urine Appearance Clear (Clear) Urine pH 5.0 (5.0-8.0) Ur Specific [place] 1.016 (1.001-1.035) Urine Protein Negative (Negative) Urine Glucose (UA) 4+ H (Negative) Urine Ketones 1+ H (Negative) Urine Blood Negative (Negative) Urine Nitrite Negative (Negative) Urine Bilirubin Negative (Negative) Urine Urobilinogen <2.0 (<2.0) mg/dL Ur Leukocyte Esterase Negative (Negative) Acetone, Qual Negative (Negative) Influenza Type A (PCR) (Not Detectd) Influenza Type B (PCR) (Not Detectd) RSV (PCR) (Not Detectd) SARS-CoV-2 (PCR) (Not Detectd) 06/25/24 06/25/24 06/25/24 Range/Units 09:37 09:37 09:49 WBC (3.8-10.6) k/uL RBC (3.80-5.40) m/uL Hgb (11.4-16.0) gm/dL Hct (34.0-46.0) % MCV (80.0-100.0) fL MCH (25.0-35.0) pg MCHC (31.0-37.0) g/dL RDW (11.5-15.5) % Plt Count (150-450) k/uL MPV Neutrophils % % Lymphocytes % % Monocytes % % Eosinophils % % Basophils % % Neutrophils # (1.3-7.7) k/uL Lymphocytes # (1.0-4.8) k/uL Monocytes # (0-1.0) k/uL Eosinophils # (0-0.7) k/uL Basophils # (0-0.2) k/uL Hypochromasia PT (10.0-12.5) sec INR (<1.2) APTT (22.0-30.0) sec Sample Site rbrach ABG pH 6.96 L* (7.35-7.45) ABG pCO2 <15 L* (35-45) mmHg ABG pO2 146 H (83-108) mmHg ABG O2 Saturation 98.0 H (94-97) % Job Test Yes Hemoglobin 12.1 (11.4-16.0) gm/dL FiO2 21 % Sodium (137-145) mmol/L Potassium (3.5-5.1) mmol/L Chloride (98-107) mmol/L Carbon Dioxide (22-30) mmol/L Anion Gap mmol/L BUN (7-17) mg/dL Creatinine (0.52-1.04) mg/dL Est GFR (CKD-EPI)AfAm (>60 ml/min/1.73 sqM) Est GFR (CKD-EPI)NonAf (>60 ml/min/1.73 sqM) Glucose (74-99) mg/dL POC Glucose (mg/dL) (70-110) mg/dL POC Glu Pricing Analyst ID Plasma Lactic Acid Abelardo (0.7-2.0) mmol/L Calcium (8.4-10.2) mg/dL Magnesium (1.6-2.3) mg/dL Total Bilirubin (0.2-1.3) mg/dL AST (14-36) U/L ALT (4-34) U/L Alkaline Phosphatase (38-126) U/L Troponin I 0.082 H* (0.000-0.034) ng/mL Total Protein (6.3-8.2) g/dL Albumin (3.5-5.0) g/dL Urine Color Urine Appearance (Clear) Urine pH (5.0-8.0) Ur Specific [place] (1.001-1.035) Urine Protein (Negative) Urine Glucose (UA) (Negative) Urine Ketones (Negative) Urine Blood (Negative) Urine Nitrite (Negative) Urine Bilirubin (Negative) Urine Urobilinogen (<2.0) mg/dL Ur Leukocyte Esterase (Negative) Acetone, Qual (Negative) Influenza Type A (PCR) Not Detected (Not Detectd) Influenza Type B (PCR) Not Detected (Not Detectd) RSV (PCR) Not Detected (Not Detectd) SARS-CoV-2 (PCR) Not Detected (Not Detectd) 06/25/24 Range/Units 10:58 WBC (3.8-10.6) k/uL RBC (3.80-5.40) m/uL Hgb (11.4-16.0) gm/dL Hct (34.0-46.0) % MCV (80.0-100.0) fL MCH (25.0-35.0) pg MCHC (31.0-37.0) g/dL RDW (11.5-15.5) % Plt Count (150-450) k/uL MPV Neutrophils % % Lymphocytes % % Monocytes % % Eosinophils % % Basophils % % Neutrophils # (1.3-7.7) k/uL Lymphocytes # (1.0-4.8) k/uL Monocytes # (0-1.0) k/uL Eosinophils # (0-0.7) k/uL Basophils # (0-0.2) k/uL Hypochromasia PT (10.0-12.5) sec INR (<1.2) APTT (22.0-30.0) sec Sample Site ABG pH (7.35-7.45) ABG pCO2 (35-45) mmHg ABG pO2 (83-108) mmHg ABG O2 Saturation (94-97) % Job Test Hemoglobin (11.4-16.0) gm/dL FiO2 % Sodium (137-145) mmol/L Potassium (3.5-5.1) mmol/L Chloride (98-107) mmol/L Carbon Dioxide (22-30) mmol/L Anion Gap mmol/L BUN (7-17) mg/dL Creatinine (0.52-1.04) mg/dL Est GFR (CKD-EPI)AfAm (>60 ml/min/1.73 sqM) Est GFR (CKD-EPI)NonAf (>60 ml/min/1.73 sqM) Glucose (74-99) mg/dL POC Glucose (mg/dL) 462 H (70-110) mg/dL POC Glu Pricing Analyst ID Kel Cast Plasma Lactic Acid Abelardo (0.7-2.0) mmol/L Calcium (8.4-10.2) mg/dL Magnesium (1.6-2.3) mg/dL Total Bilirubin (0.2-1.3) mg/dL AST (14-36) U/L ALT (4-34) U/L Alkaline Phosphatase (38-126) U/L Troponin I (0.000-0.034) ng/mL Total Protein (6.3-8.2) g/dL Albumin (3.5-5.0) g/dL Urine Color Urine Appearance (Clear) Urine pH (5.0-8.0) Ur Specific [place] (1.001-1.035) Urine Protein (Negative) Urine Glucose (UA) (Negative) Urine Ketones (Negative) Urine Blood (Negative) Urine Nitrite (Negative) Urine Bilirubin (Negative) Urine Urobilinogen (<2.0) mg/dL Ur Leukocyte Esterase (Negative) Acetone, Qual (Negative) Influenza Type A (PCR) (Not Detectd) Influenza Type B (PCR) (Not Detectd) RSV (PCR) (Not Detectd) SARS-CoV-2 (PCR) (Not Detectd) Critical Care Time Critical Care Time: Yes Disposition Clinical Impression: Diabetic ketoacidosis Disposition: ADMITTED IP TO THIS [facility] Condition: Critical Is patient prescribed a controlled substance at d/c from ED?: No Time of Disposition: 11:18
[2024-06-25] MEDS ORDERED: NALOXONE 0.4 MG/ML 1 ML VIAL IV PRN (11:20)
[2024-06-25] MEDS: SODIUM CHLORIDE 0.9% 1,000 ML IV SCH (11:42)
[2024-06-25 12:09] LABS: Glucose,Whole Blood 348 mg/dL (70-110)
[2024-06-25 12:23] LABS: Phosphorus 6.9 mg/dL (2.5-4.5)
[2024-06-25 12:24] LABS: African American GFR (CKD) 76 (>60 ml/min/1.73 sqM); Amylase 100 U/L (30-110); Blood Urea Nitrogen 16 mg/dL (7-17); Chloride 113 mmol/L (98-107); Creatine Kinase 51 U/L (30-135); Glucose 382 mg/dL (74-99); Non-African American GFR(CKD) 66 (>60 ml/min/1.73 sqM); Potassium 4.6 mmol/L (3.5-5.1); Sodium 141 mmol/L (137-145)
[2024-06-25 12:36] LABS: Carbon Dioxide <5 mmol/L (22-30)
--- NOTE | 2024-06-25 12:52 | P.CNPUL ---
History of Present Illness Consult date: 06/25/24 Chief complaint: Altered mental status History of present illness: This is a 44-year-old female patient was diagnosed having type 1 diabetes and is diagnosed with diabetes approximately a month ago and the patient was receiving a combination of Mounjaro, Farxiga and Lantus insulin 20 units on a daily basis. The family believes that the patient was not taking his insulin although they are not certain. The patient comes into the emergency department with altered mentation and she was in full-blown DKA and at the same time she was severely acidotic with severe lactic acidosis. She was tachycardic and her heart rate was around 150. Initial blood gas showed a pH of 6.9 with a pCO2 of less than 15 and a pO2 of 146 and this was an FiO2 of 21%. Initial blood sugar was 530 and the patient had severe anion gap metabolic acidosis with a serum bicarb of less than 5. The acetone was positive. Lactic acid level was as high as 22. Potassium level was at 5.6. Creatinine was at 1.4. BUN was 16. LFTs are mildly abnormal with an AST of 106, ALT of 68 and alkaline phosphatase of 299. Troponins at 0.08. The white cell count is 25.9 with the most 12.8 and a platelet count of 294. The patient is already received a total of 3 L of IV f luids and the patient is currently on normal saline at 100 cc an hour and insulin drip is running at 7 units an hour. Follow-up blood sugars show some improvement and sugar is currently down to 348. Electrolytes are being monitored very closely. Mentation remains altered. Remains tachycardic. H emodynamically stable. Chest x-ray shows no acute abnormalities and the CAT scan of the brain also shows no acute abnormalities. Review of Systems ROS unobtainable: due to mental status Past Medical History Past Medical History: Atrial Fibrillation, Diabetes Mellitus, Thyroid Disorder History of Any Multi-Drug Resistant Organisms: None Reported Past Surgical History: No Surgical Hx Reported Past Anesthesia/Blood Transfusion Reactions: No Reported Reaction Past Psychological History: No Psychological Hx Reported Smoking Status: Never smoker Past Alcohol Use History: None Reported Past Drug Use History: None Reported - Past Family History Mother Family Medical History: Hypertension Father Family Medical History: Diabetes Mellitus Medications and Allergies Home Medications Medication Instructions Recorded Confirmed Type Acetaminophen Tab [Tylenol] 500 - 1,000 mg PO Q6HR PRN 10/23/20 06/25/24 History Aspirin EC [Ecotrin Low Dose] 81 mg PO DAILY 06/25/24 06/25/24 History Dapagliflozin Propanediol [Farxiga] 5 mg PO DAILY 06/25/24 06/25/24 History Dextroamphetamine/Amphetamine 20 mg PO BID@0900,1400 06/25/24 06/25/24 History [Adderall] Fexofenadine HCl [Jyotsna Allergy] 180 mg PO DAILY 06/25/24 06/25/24 History INSULIN LISPRO (HumaLOG) [humaLOG] 10 units SQ AC-TID 06/25/24 06/25/24 History Insulin Glargine,Hum.rec.anlog 20 units SQ DAILY 06/25/24 06/25/24 History [Lantus Solostar Pen] Pantoprazole [Protonix] 40 mg PO HS 06/25/24 06/25/24 History Rivaroxaban [Xarelto] 10 mg PO DAILY 06/25/24 06/25/24 History Tirzepatide [Mounjaro] 5 mg SQ Q7D 06/25/24 06/25/24 History atenoloL [Tenormin] 50 mg PO BID 06/25/24 06/25/24 History methIMAzole [Tapazole] 10 mg PO BID 06/25/24 06/25/24 History Allergies Allergy/AdvReac Type Severity Reaction Status Date / Time meperidine [From Demerol] Allergy syncope Verified 06/25/24 10:46 moxifloxacin [From Avelox] Allergy palpitation Verified 06/25/24 10:46 s Physical Exam Vitals: Vital Signs Temp Pulse Resp BP Pulse Ox 06/25/24 12:30 96.1 F L 165 H 30 H 122/71 100 06/25/24 11:47 94.8 F L 156 H 28 H 126/68 100 06/25/24 11:12 94.1 F L 06/25/24 11:00 147 H 31 H 118/51 100 06/25/24 10:55 93.7 F L 151 H 44 H 118/51 94 L 06/25/24 10:30 82/38 06/25/24 10:19 82/38 06/25/24 10:15 146 H 30 H 87/50 100 06/25/24 09:24 93.9 F L 146 H 30 H 111/58 Intake and Output 06/24/24 06/25/24 06/25/24 22:59 06:59 14:59 Other: Weight 68.039 kg Vital signs as documented. The patient is demonstrating mucous membrane dr yrosalinda and she has sunken eyes. She is at times restless. Remains unresponsive to any verbal stimulation. Positive cough and gag. Head exam is unremarkable. No scleral icterus or corneal arcus noted. Neck is without jugular venous distension, thyromegaly, or carotid bruits. Carotid upstrokes are brisk bilaterally. Lungs are clear to auscultation and percussion. The patient is tachypneic and t he patient demonstrates Kussmaul breathing. Cardiac exam reveals the PMI to be normally sized and situated. Rhythm is regular. First and second heart sounds normal. No murmurs, rubs or gallops. Abdominal exam reveals normal bowel sounds, no masses, no organomegaly and no aortic enlargement. Extremities are nonedematous and both femoral and pedal pulses are normal. Examination of the skin revealed no evidence of significant rashes, suspicious appearing nevi or other concerning lesions. Neurologically, the patient is awake and encephalopathic and the patient does not have any focal neurological deficit. Cranial nerves are essentially intact. She is moving all 4 extremities without any limitation. Results - Laboratory Findings CBC and BMP: 06/25/24 09:37 06/25/24 11:54 ABG ABG pH 6.96 (7.35-7.45) L* 06/25/24 09:49 ABG pCO2 <15 mmHg (35-45) L* 06/25/24 09:49 ABG pO2 146 mmHg (83-108) H 06/25/24 09:49 ABG O2 Saturation 98.0 % (94-97) H 06/25/24 09:49 PT/INR, D-dimer PT 14.2 sec (10.0-12.5) H 06/25/24 09:37 INR 1.4 (<1.2) H 06/25/24 09:37 Abnormal lab findings: Abnormal Labs 06/25/24 06/25/24 06/25/24 09:25 09:37 09:37 WBC 25.9 H MCHC 28.8 L Neutrophils # 23.5 H PT 14.2 H INR 1.4 H APTT 32.4 H ABG pH ABG pCO2 ABG pO2 ABG O2 Saturation Sodium Potassium Chloride Carbon Dioxide Creatinine Glucose POC Glucose (mg/dL) 530 H* Plasma Lactic Acid Abelardo Phosphorus Magnesium AST ALT Alkaline Phosphatase Troponin I Urine Glucose (UA) Urine Ketones 06/25/24 06/25/24 06/25/24 09:37 09:37 09:37 WBC MCHC Neutrophils # PT INR APTT ABG pH ABG pCO2 ABG pO2 ABG O2 Saturation Sodium 136 L Potassium 5.6 H Chloride Carbon Dioxide <5 L* Creatinine 1.46 H Glucose 624 H* POC Glucose (mg/dL) Plasma Lactic Acid Abelardo 22.0 H* Phosphorus Magnesium 2.7 H AST 106 H ALT 68 H Alkaline Phosphatase 299 H Troponin I Urine Glucose (UA) 4+ H Urine Ketones 1+ H 06/25/24 06/25/24 06/25/24 09:37 09:49 10:58 WBC MCHC Neutrophils # PT INR APTT ABG pH 6.96 L* ABG pCO2 <15 L* ABG pO2 146 H ABG O2 Saturation 98.0 H Sodium Potassium Chloride Carbon Dioxide Creatinine Glucose POC Glucose (mg/dL) 462 H Plasma Lactic Acid Abelardo Phosphorus Magnesium AST ALT Alkaline Phosphatase Troponin I 0.082 H* Urine Glucose (UA) Urine Ketones 06/25/24 06/25/24 06/25/24 11:54 11:54 12:07 WBC MCHC Neutrophils # PT INR APTT ABG pH ABG pCO2 ABG pO2 ABG O2 Saturation Sodium Potassium Chloride 113 H Carbon Dioxide <5 L* Creatinine Glucose 382 H POC Glucose (mg/dL) 348 H Plasma Lactic Acid Abelardo Phosphorus 6.9 H Magnesium AST ALT Alkaline Phosphatase Troponin I Urine Glucose (UA) Urine Ketones - Diagnostic Findings Chest x-ray: image reviewed Assessment and Plan Plan: DKA with severe anion gap metabolic acidosis. The patient has a combination of lactic acidosis and diabetic ketoacidosis. Acute altered mentation secondary to above, CAT scan of the brain is negative. Neurologic exam is nonfocal. Type 1 diabetes mellitus maintained on a combination of Farxiga, Mounjaro and Lantus insulin on outpatient basis. Blood sugar control has been poor on outpatient basis Sinus tachycardia Severe dehydration Leukocytosis, likely reactive. No signs of any infection or septicemia at this point in time. Troponin leak, likely type II ischemia Mild transaminitis Hypothyroidism, maintained on cefazolin outpatient basis History of atrial fibrillation, current rhythm is sinus. Plan Continue fluid resuscitation. Administer another liter of normal saline as the patient received only a total of 3 L. Will continue maintenance IV fluids at a rate of 200 cc an hour. Continue insulin drip for now. Blood sugar on an hourly basis Electrolytes every 4 hours Check amylase and lipase and CPK Check hemoglobin A1c Reflex the lactic acid level Check test Room air oxygen Monitor cardiac rhythm Hold anticoagulants for now Check thyroid function test Admit this patient to the intensive care unit
[2024-06-25 13:02] LABS: Glucose,Whole Blood 306 mg/dL (70-110)
[2024-06-25 15:25] LABS: Glucose,Whole Blood 187 mg/dL (70-110)
[2024-06-25] MEDS: ONDANSETRON 4 MG/2 ML VIAL IVP PRN (15:29)
[2024-06-25] MEDS: D5-0.45% NACL WITH KCL 20MEQ/L 1,000 ML IV SCH (15:31)
[2024-06-25 15:57] LABS: African American GFR (CKD) >90 (>60 ml/min/1.73 sqM); Anion Gap 13 mmol/L; Blood Urea Nitrogen 16 mg/dL (7-17); Chloride 119 mmol/L (98-107); Glucose 194 mg/dL (74-99); Non-African American GFR(CKD) >90 (>60 ml/min/1.73 sqM); Potassium 3.7 mmol/L (3.5-5.1); Sodium 140 mmol/L (137-145)
[2024-06-25 15:59] LABS: Carbon Dioxide 8 mmol/L (22-30)
[2024-06-25 16:53] LABS: Glucose,Whole Blood 180 mg/dL (70-110)
[2024-06-25 17:52] LABS: T4, Free (Free Thyroxine) 5.48 ng/dL (0.78-2.19)
[2024-06-25] MEDS ORDERED: Phosphorus Replacement Protoco 1 EACH MISC MISCELLANE PRN (18:22)
[2024-06-25 18:24] LABS: Glucose,Whole Blood 170 mg/dL (70-110)
[2024-06-25 18:43] LABS: Glucose,Whole Blood 162 mg/dL (70-110)
[2024-06-25] MEDS: methIMAzole 5 MG TAB PO SCH (20:04)
[2024-06-25] MEDS: atenoloL 50 MG TAB PO SCH (20:04)
[2024-06-25] MEDS: PANTOPRAZOLE 40 MG TABLET PO SCH (20:06)
[2024-06-25] MEDS: SODIUM PHOSPHATE 60 MMOL in DEXTROSE 5% IN WATER 250 ML IVPB ONE (20:14)
[2024-06-25 20:22] LABS: Glucose,Whole Blood 153 mg/dL (70-110)
[2024-06-25] MEDS: ACETAMINOPHEN TAB 325 MG TAB PO PRN (20:24)
[2024-06-25] MEDS: METOPROLOL TARTRATE 5 MG/5 ML VIAL IVP PRN (20:25)
[2024-06-25] MEDS: IPRATROPIUM-ALBUTEROL 3 ML NEB INHALATION SCH (20:46)
[2024-06-25 21:11] LABS: Glucose,Whole Blood 163 mg/dL (70-110)
[2024-06-25 21:52] LABS: Glucose,Whole Blood 144 mg/dL (70-110)
[2024-06-25 22:15] LABS: ALT 132 U/L (4-34); AST 321 U/L (14-36); African American GFR (CKD) >90 (>60 ml/min/1.73 sqM); Albumin 2.9 g/dL (3.5-5.0); Alkaline Phosphatase 181 U/L (38-126); Anion Gap 9 mmol/L; Blood Urea Nitrogen 14 mg/dL (7-17); Calcium 8.4 mg/dL (8.4-10.2); Carbon Dioxide 13 mmol/L (22-30); Chloride 112 mmol/L (98-107); Glucose 147 mg/dL (74-99); Non-African American GFR(CKD) >90 (>60 ml/min/1.73 sqM); Potassium 3.7 mmol/L (3.5-5.1); Sodium 134 mmol/L (137-145); Total Bilirubin 1.1 mg/dL (0.2-1.3); Total Protein 6.1 g/dL (6.3-8.2)
[2024-06-25 23:00] LABS: Glucose,Whole Blood 130 mg/dL (70-110)
[2024-06-25 23:18] LABS: Urine Alcohol Negative (Negative)
[2024-06-25 23:19] LABS: Urine Barbiturate Negative (Negative); Urine Cocaine Negative (Negative); Urine Methadone Negative (Negative); Urine Opiates Negative (Negative); Urine Phencyclidine Negative (Negative)
[2024-06-25 23:54] LABS: Glucose,Whole Blood 130 mg/dL (70-110)
[2024-06-26] MEDS: POTASSIUM CHLORIDE 10 MEQ in WATER FOR INJECTION 1 100ML.BAG IVPB SCH (00:06)
[2024-06-26 01:05] LABS: Glucose,Whole Blood 156 mg/dL (70-110)
--- NOTE | 2024-06-26 01:42 | HP ---
HISTORY AND PHYSICAL HISTORY OF PRESENT ILLNESS: A 44-year-old came to the hospital with diabetic ketoacidosis, started on IV antibiotics for elevated prolactin, elevated white count, possible viral syndrome and pneumonia versus UTI and she is tachycardic. Thyroid levels are pending. Restart her home medicines including beta osbaldo and hyperthyroidism medications. If she feels much better tonight, she will go home. She is on DKA protocol. Medications reviewed. Past medical history reviewed. PHYSICAL EXAMINATION: VITAL SIGNS: Temp 93.9 on admission, pulse is in the 140s, respiratory rate currently is 20 to 22, blood pressure is up to 111/58, was low today. PSYCH: Alert and oriented x3. CARDIOVASCULAR: S1, S2. HEMATOLOGY: Negative Homans. PSYCH: Fair mood and affect. GI: Soft, nontender. LUNGS: Mild wheeze x4. Sepsis, antibiotics, started Maxipime. Sinus tachycardia, hyperthyroidism, DKA. Continue protocol. Broad-spectrum antibiotics. Dr. Sanchez consult. Sepsis workup. Prognosis guarded. Continue on DKA protocol and check her thyroid levels. Prognosis guarded. Please see further orders. She is in ICU. MMODL / IJN: [id number] /
[2024-06-26 02:01] LABS: Glucose,Whole Blood 190 mg/dL (70-110)
[2024-06-26 03:26] LABS: Glucose,Whole Blood 265 mg/dL (70-110)
[2024-06-26 03:33] LABS: Magnesium 1.5 mg/dL (1.6-2.3); Phosphorus 7.5 mg/dL (2.5-4.5)
[2024-06-26 03:34] LABS: ALT 154 U/L (4-34); AST 341 U/L (14-36); African American GFR (CKD) >90 (>60 ml/min/1.73 sqM); Albumin 2.9 g/dL (3.5-5.0); Alkaline Phosphatase 194 U/L (38-126); Anion Gap 9 mmol/L; Blood Urea Nitrogen 16 mg/dL (7-17); Calcium 7.1 mg/dL (8.4-10.2); Carbon Dioxide 11 mmol/L (22-30); Chloride 111 mmol/L (98-107); Glucose 236 mg/dL (74-99); Non-African American GFR(CKD) >90 (>60 ml/min/1.73 sqM); Potassium 4.8 mmol/L (3.5-5.1); Sodium 131 mmol/L (137-145); Total Bilirubin 1.5 mg/dL (0.2-1.3)
[2024-06-26] MEDS: MAGNESIUM SULFATE-D5W PMX 1 GM in DEXTROSE/WATER 1 100ML.BAG IVPB SCH (04:00)
[2024-06-26 04:10] LABS: Glucose,Whole Blood 252 mg/dL (70-110)
[2024-06-26 06:14] LABS: Glucose,Whole Blood 235 mg/dL (70-110)
[2024-06-26 06:14] LABS: Glucose,Whole Blood 244 mg/dL (70-110)
[2024-06-26 06:29] LABS: Basophils % (A) 0 %; Eosinophils % (A) 0 %; HCT 36.2 % (34.0-46.0); HGB 11.4 gm/dL (11.4-16.0); Hypochromasia Slight; Lymphocytes # (A) 1.2 k/uL (1.0-4.8); Lymphocytes % (A) 5 %; MCH 26.5 pg (25.0-35.0); MCHC 31.5 g/dL (31.0-37.0); Mean Platelet Volume 9.8; Monocytes # (A) 1.2 k/uL (0-1.0); Monocytes % (A) 4 %; Neutrophils # (A) 24.3 k/uL (1.3-7.7); Neutrophils % (A) 90 %; Platelet Count 167 k/uL (150-450); RDW 14.5 % (11.5-15.5)
[2024-06-26 06:31] LABS: Albumin 2.9 g/dL (3.5-5.0); Bilirubin, Delta 0.5 mg/dL (0.0-0.2); Bilirubin,Unconjugated 0.9 mg/dL (0.0-1.1); Total Bilirubin 1.4 mg/dL (0.2-1.3); Total Protein 5.9 g/dL (6.3-8.2)
[2024-06-26 06:34] LABS: ALT 164 U/L (4-34); AST 364 U/L (14-36); African American GFR (CKD) >90 (>60 ml/min/1.73 sqM); Albumin 2.9 g/dL (3.5-5.0); Alkaline Phosphatase 221 U/L (38-126); Anion Gap 7 mmol/L; Blood Urea Nitrogen 15 mg/dL (7-17); Calcium 7.3 mg/dL (8.4-10.2); Carbon Dioxide 14 mmol/L (22-30); Chloride 109 mmol/L (98-107); Glucose 255 mg/dL (74-99); Magnesium 2.3 mg/dL (1.6-2.3); Non-African American GFR(CKD) >90 (>60 ml/min/1.73 sqM); Phosphorus 5.4 mg/dL (2.5-4.5); Potassium 4.3 mmol/L (3.5-5.1); Sodium 130 mmol/L (137-145); Total Bilirubin 1.4 mg/dL (0.2-1.3)
[2024-06-26 06:35] LABS: MCV 84.3 fL (80.0-100.0)
[2024-06-26 07:02] LABS: Glucose,Whole Blood 229 mg/dL (70-110)
[2024-06-26 08:08] LABS: Glucose,Whole Blood 169 mg/dL (70-110)
[2024-06-26 08:51] LABS: Hepatitis A Antibody IgM Nonreactive (Nonreactive); Hepatitis B Core IgM Nonreactive (Nonreactive); Hepatitis B Surface Antigen Nonreactive (Nonreactive); Hepatitis C IgG Antibody Nonreactive (Nonreactive)
[2024-06-26] MEDS ORDERED: PANTOPRAZOLE 40 MG/10 ML VIAL IV SCH (09:00)
[2024-06-26 09:21] LABS: Glucose,Whole Blood 135 mg/dL (70-110)
[2024-06-26 09:36] LABS: ALT 170 U/L (4-34); AST 357 U/L (14-36); African American GFR (CKD) >90 (>60 ml/min/1.73 sqM); Alkaline Phosphatase 191 U/L (38-126); Anion Gap 9 mmol/L; Blood Urea Nitrogen 14 mg/dL (7-17); Calcium 7.6 mg/dL (8.4-10.2); Carbon Dioxide 17 mmol/L (22-30); Chloride 109 mmol/L (98-107); Glucose 150 mg/dL (74-99); Magnesium 2.3 mg/dL (1.6-2.3); Non-African American GFR(CKD) >90 (>60 ml/min/1.73 sqM); Potassium 3.8 mmol/L (3.5-5.1); Sodium 135 mmol/L (137-145); Total Bilirubin 1.3 mg/dL (0.2-1.3); Total Protein 6.1 g/dL (6.3-8.2)
[2024-06-26] MEDS: RIVAROXABAN 10 MG TAB PO SCH (09:46)
[2024-06-26] MEDS: ASPIRIN 81 MG PO SCH (09:46)
[2024-06-26] MEDS: LORATADINE 10 MG TAB PO SCH (09:46)
[2024-06-26 10:07] LABS: Glucose,Whole Blood 133 mg/dL (70-110)
--- NOTE | 2024-06-26 10:37 | US ---
EXAMINATION TYPE: US gallbladder DATE OF EXAM: 06/26/2024 COMPARISON: NONE CLINICAL INDICATION: Female, 44 years old with history of RUQ abdominal pain; Hx kidney stone. Pain s tarted yesterday. TECHNIQUE: Grayscale and color Doppler imaging of the right upper quadrant. 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 Pancreas: Not well seen. Liver: Very limited due to gas, appears coarse in echotexture with increased echogenicity. Gallbladder: Limited, no abnormalities seen. Evidence for sonographic Morales's sign: No CBD: Obscured Right Kidney: No hydronephrosis or masses seen Pancreas is obscured by overlying bowel gas. Very limited visualization of the liver due to overlying bowel gas. Appears coarse in echotexture with increased echogenicity. No gross evidence of focal les ion. Gallbladder demonstrates no wall thickening, cholecystitis, or stranding fluid. Negative sonogra phic Morales's sign. Common bile duct is obscured by overlying bowel gas. Right kidney demonstrates no hydronephrosis, solid mass, or nephrolithiasis. IMPRESSION: 1. Limited examination due to overlying bowel gas now evidence for acute process. 2. Findings suggestive of hepatic steatosis. [facility], , 06/26/2024 10:35 AM
[2024-06-26 11:02] LABS: Glucose,Whole Blood 185 mg/dL (70-110)
--- NOTE | 2024-06-26 11:48 | P.PN ---
Subjective Progress Note Date: 06/26/24 This is a 44-year-old female patient was diagnosed having type 1 diabetes and is diagnosed with diabetes approximately a month ago and the patient was receiving a combination of Mounjaro, Farxiga and Lantus insulin 20 units on a daily basis. The family believes that the patient was not taking his insulin although they are not certain. The patient comes into the emergency department with altered mentation and she was in full-blown DKA and at the same time she was severely acidotic with severe lactic acidosis. She was tachycardic and her heart rate was around 150. Initial blood gas showed a pH of 6.9 with a pCO2 of less than 15 and a pO2 of 146 and this was an FiO2 of 21%. Initial blood sugar was 530 and the patient had severe anion gap metabolic acidosis with a serum bicarb of less than 5. The acetone was positive. Lactic acid level was as high as 22. Potassium level was at 5.6. Creatinine was at 1.4. BUN was 16. LFTs are mildly abnormal with an AST of 106, ALT of 68 and alkaline phosphatase of 299. Troponins at 0.08. The white cell count is 25.9 with the most 12.8 and a plate let count of 294. The patient is already received a total of 3 L of IV fluids and the patient is currently on normal saline at 100 cc an hour and insulin drip is running at 7 units an hour. Follow-up blood sugars show some improvement and sugar is currently down to 348. Electrolytes are being monitored very closely. Mentation remains altered. Remains tachycardic. Hemodynamically stable. Chest x-ray shows no acute abnormalities and the CAT scan of the brain also shows no acute abnormalities. 06/26/2024, the patient is being seen for a follow-up. The patient is feeling better compared to yesterday. The patient this morning is on a D5 half-normal saline at a rate of 100 cc an hour. Insulin drip is still running at 3.7 units an hour. There is improvement in the electrolyte imbalance and the patient's most recent electrolytes show a gap of 7 with a serum bicarb of 14. Potassium i s at 4.3. Sodium levels at 130. The blood sugar is currently is at 229.. The patient is less tachycardic. The patient was started on beta-blockers. Overnight the patient was given IV Lopressor and the patient will be started on atenolol today. TSH is suppressed and the patient has history of h yperthyroidism/Graves' disease and Tapazole was restarted. She is awake and alert and communicating. She has received approximately 5 L of IV fluid bolus and the fluid balance is positive. Her cardiac rhythm is sinus and her sinus tachycardia is improved considerably. LFTs are normal and the patient states that she has had abnormal LFTs for a long period of time. No nausea. No emesis. No abdominal pain. No altered mentation. The white cell count remains elevated at 27. No signs of any infection or septicemia and this is likely reactive in nature. The patient remains on room air oxygen. No other significant events overnight. Neurologically, she is awake and alert and communicating. She also states that she has history of alpha-1 antitrypsin disease, MZ phenotype. Objective - Vital Signs Vital signs: Vital Signs Temp 99.5 F 06/26/24 04:00 Pulse 96 06/26/24 08:33 Resp 25 H 06/26/24 07:00 BP 91/67 06/26/24 07:00 Pulse Ox 97 06/26/24 08:23 FiO2 Intake & Output 06/25/24 06/26/24 06/26/24 18:59 06:59 18:59 Intake Total 5350 3646.755 150 Output Total 3550 1260 75 Balance 1800 2386.755 75 Weight 68.039 kg 70.3 kg Intake: IV 5350 3550 150 Cefepime 2 gm In Sodium 100 Chloride 0.9% 100 ml @ 25 mls/hr IVPB Q12HR [facility] Rx #:[id number] D5-0.45% NaCl with KCl 450 1800 150 20Meq/l 1,000 ml @ 150 mls/hr IV .[id number] [facility] Rx# :[id number] Magnesium Sulfate-D5w Pmx 200 1 gm In Dextrose/Water 1 100ml.bag @ 100 mls/hr IVPB Q1H [facility] Rx#: [id number] Potassium Chloride 10 meq 200 In Water For Injection 1 100ml.bag @ 100 mls/hr IVPB Q1H [facility] Rx#: [id number] Sodium Chloride 0.9% 1, 4900 1000 000 ml @ 200 mls/hr IV . Q5H [facility] Rx#:[id number] Sodium Phosphate 60 mmol 250 In Dextrose 5% in Water 250 ml @ 45 mls/hr IVPB ONCE ONE Rx#:[id number] Intake, IV Titration 96.755 Amount Insulin Regular 100 unit 96.755 In Sodium Chloride 0.9% 100 ml @ 0.1 UNITS/KG/HR 6.872 mls/hr IV .[id number] [facility] Rx#:[id number] Output: Urine 3550 1260 75 Other: Voiding Method Indwelling Catheter Indwelling Catheter - Exam Vital signs as documented. Awake and alert and communicating Head exam is unremarkable. No scleral icterus or corneal arcus noted. Neck is without jugular venous distension, thyromegaly, or carotid bruits. Carotid upstrokes are brisk bilaterally. Lungs are clear to auscultation and percussion. Cardiac exam reveals the PMI to be normally sized and situated. Rhythm is r egular. First and second heart sounds normal. No murmurs, rubs or gallops. Abdominal exam reveals normal bowel sounds, no masses, no organomegaly and no aortic enlargement. Extremities are nonedematous and both femoral and pedal pulses are normal. Examination of the skin revealed no evidence of significant rashes, suspicious appearing nevi or other concerning lesions. Neurologically, neurologically, the patient is awake and alert and the patient does not have any focal neurological deficit. Cranial nerves are essentially intact. - Labs CBC & Chem 7: 06/26/24 05:47 06/26/24 09:03 Labs: Abnormal Lab Results - Last 24 Hours (Table) 06/25/24 06/25/24 06/25/24 Range/Units 09:25 09:37 09:37 WBC 25.9 H (3.8-10.6) k/uL MCHC 28.8 L (31.0-37.0) g/dL Neutrophils # 23.5 H (1.3-7.7) k/uL Monocytes # (0-1.0) k/uL PT 14.2 H (10.0-12.5) sec INR 1.4 H (<1.2) APTT 32.4 H (22.0-30.0) sec ABG pH (7.35-7.45) ABG pCO2 (35-45) mmHg ABG pO2 (83-108) mmHg ABG O2 Saturation (94-97) % Sodium (137-145) mmol/L Potassium (3.5-5.1) mmol/L Chloride (98-107) mmol/L Carbon Dioxide (22-30) mmol/L Creatinine (0.52-1.04) mg/dL Glucose (74-99) mg/dL POC Glucose (mg/dL) 530 H* (70-110) mg/dL Plasma Lactic Acid Abelardo (0.7-2.0) mmol/L Calcium (8.4-10.2) mg/dL Phosphorus (2.5-4.5) mg/dL Magnesium (1.6-2.3) mg/dL Total Bilirubin (0.2-1.3) mg/dL Delta Bilirubin (0.0-0.2) mg/dL AST (14-36) U/L ALT (4-34) U/L Alkaline Phosphatase (38-126) U/L Troponin I (0.000-0.034) ng/mL Total Protein (6.3-8.2) g/dL Albumin (3.5-5.0) g/dL TSH (0.465-4.680) mIU/L Free T4 (0.78-2.19) ng/dL Free T3 pg/mL (2.30-4.20) pg/mL Urine Glucose (UA) (Negative) Urine Ketones (Negative) U Creatinine Drug Scrn (>=20.0) mg/dL 06/25/24 06/25/24 06/25/24 Range/Units 09:37 09:37 09:37 WBC (3.8-10.6) k/uL MCHC (31.0-37.0) g/dL Neutrophils # (1.3-7.7) k/uL Monocytes # (0-1.0) k/uL PT (10.0-12.5) sec INR (<1.2) APTT (22.0-30.0) sec ABG pH (7.35-7.45) ABG pCO2 (35-45) mmHg ABG pO2 (83-108) mmHg ABG O2 Saturation (94-97) % Sodium 136 L (137-145) mmol/L Potassium 5.6 H (3.5-5.1) mmol/L Chloride (98-107) mmol/L Carbon Dioxide <5 L* (22-30) mmol/L Creatinine 1.46 H (0.52-1.04) mg/dL Glucose 624 H* (74-99) mg/dL POC Glucose (mg/dL) (70-110) mg/dL Plasma Lactic Acid Abelardo 22.0 H* (0.7-2.0) mmol/L Calcium (8.4-10.2) mg/dL Phosphorus (2.5-4.5) mg/dL Magnesium 2.7 H (1.6-2.3) mg/dL Total Bilirubin (0.2-1.3) mg/dL Delta Bilirubin (0.0-0.2) mg/dL AST 106 H (14-36) U/L ALT 68 H (4-34) U/L Alkaline Phosphatase 299 H (38-126) U/L Troponin I (0.000-0.034) ng/mL Total Protein (6.3-8.2) g/dL Albumin (3.5-5.0) g/dL TSH (0.465-4.680) mIU/L Free T4 (0.78-2.19) ng/dL Free T3 pg/mL (2.30-4.20) pg/mL Urine Glucose (UA) 4+ H (Negative) Urine Ketones 1+ H (Negative) U Creatinine Drug Scrn (>=20.0) mg/dL 06/25/24 06/25/24 06/25/24 Range/Units 09:37 09:49 10:58 WBC (3.8-10.6) k/uL MCHC (31.0-37.0) g/dL Neutrophils # (1.3-7.7) k/uL Monocytes # (0-1.0) k/uL PT (10.0-12.5) sec INR (<1.2) APTT (22.0-30.0) sec ABG pH 6.96 L* (7.35-7.45) ABG pCO2 <15 L* (35-45) mmHg ABG pO2 146 H (83-108) mmHg ABG O2 Saturation 98.0 H (94-97) % Sodium (137-145) mmol/L Potassium (3.5-5.1) mmol/L Chloride (98-107) mmol/L Carbon Dioxide (22-30) mmol/L Creatinine (0.52-1.04) mg/dL Glucose (74-99) mg/dL POC Glucose (mg/dL) 462 H (70-110) mg/dL Plasma Lactic Acid Abelardo (0.7-2.0) mmol/L Calcium (8.4-10.2) mg/dL Phosphorus (2.5-4.5) mg/dL Magnesium (1.6-2.3) mg/dL Total Bilirubin (0.2-1.3) mg/dL Delta Bilirubin (0.0-0.2) mg/dL AST (14-36) U/L ALT (4-34) U/L Alkaline Phosphatase (38-126) U/L Troponin I 0.082 H* (0.000-0.034) ng/mL Total Protein (6.3-8.2) g/dL Albumin (3.5-5.0) g/dL TSH (0.465-4.680) mIU/L Free T4 (0.78-2.19) ng/dL Free T3 pg/mL (2.30-4.20) pg/mL Urine Glucose (UA) (Negative) Urine Ketones (Negative) U Creatinine Drug Scrn (>=20.0) mg/dL 06/25/24 06/25/24 06/25/24 Range/Units 11:47 11:54 11:54 WBC (3.8-10.6) k/uL MCHC (31.0-37.0) g/dL Neutrophils # (1.3-7.7) k/uL Monocytes # (0-1.0) k/uL PT (10.0-12.5) sec INR (<1.2) APTT (22.0-30.0) sec ABG pH (7.35-7.45) ABG pCO2 (35-45) mmHg ABG pO2 (83-108) mmHg ABG O2 Saturation (94-97) % Sodium (137-145) mmol/L Potassium (3.5-5.1) mmol/L Chloride 113 H (98-107) mmol/L Carbon Dioxide <5 L* (22-30) mmol/L Creatinine (0.52-1.04) mg/dL Glucose 382 H (74-99) mg/dL POC Glucose (mg/dL) (70-110) mg/dL Plasma Lactic Acid Abelardo (0.7-2.0) mmol/L Calcium (8.4-10.2) mg/dL Phosphorus 6.9 H (2.5-4.5) mg/dL Magnesium (1.6-2.3) mg/dL Total Bilirubin (0.2-1.3) mg/dL Delta Bilirubin (0.0-0.2) mg/dL AST (14-36) U/L ALT (4-34) U/L Alkaline Phosphatase (38-126) U/L Troponin I (0.000-0.034) ng/mL Total Protein (6.3-8.2) g/dL Albumin (3.5-5.0) g/dL TSH (0.465-4.680) mIU/L Free T4 (0.78-2.19) ng/dL Free T3 pg/mL (2.30-4.20) pg/mL Urine Glucose (UA) (Negative) Urine Ketones (Negative) U Creatinine Drug Scrn 17.8 L (>=20.0) mg/dL 06/25/24 06/25/24 06/25/24 Range/Units 11:54 12:07 13:00 WBC (3.8-10.6) k/uL MCHC (31.0-37.0) g/dL Neutrophils # (1.3-7.7) k/uL Monocytes # (0-1.0) k/uL PT (10.0-12.5) sec INR (<1.2) APTT (22.0-30.0) sec ABG pH (7.35-7.45) ABG pCO2 (35-45) mmHg ABG pO2 (83-108) mmHg ABG O2 Saturation (94-97) % Sodium (137-145) mmol/L Potassium (3.5-5.1) mmol/L Chloride (98-107) mmol/L Carbon Dioxide (22-30) mmol/L Creatinine (0.52-1.04) mg/dL Glucose (74-99) mg/dL POC Glucose (mg/dL) 348 H 306 H (70-110) mg/dL Plasma Lactic Acid Abelardo (0.7-2.0) mmol/L Calcium (8.4-10.2) mg/dL Phosphorus (2.5-4.5) mg/dL Magnesium (1.6-2.3) mg/dL Total Bilirubin (0.2-1.3) mg/dL Delta Bilirubin (0.0-0.2) mg/dL AST (14-36) U/L ALT (4-34) U/L Alkaline Phosphatase (38-126) U/L Troponin I (0.000-0.034) ng/mL Total Protein (6.3-8.2) g/dL Albumin (3.5-5.0) g/dL TSH (0.465-4.680) mIU/L Free T4 5.48 H (0.78-2.19) ng/dL Free T3 pg/mL >27.00 H (2.30-4.20) pg/mL Urine Glucose (UA) (Negative) Urine Ketones (Negative) U Creatinine Drug Scrn (>=20.0) mg/dL 06/25/24 06/25/24 06/25/24 Range/Units 15:24 15:28 15:28 WBC (3.8-10.6) k/uL MCHC (31.0-37.0) g/dL Neutrophils # (1.3-7.7) k/uL Monocytes # (0-1.0) k/uL PT (10.0-12.5) sec INR (<1.2) APTT (22.0-30.0) sec ABG pH (7.35-7.45) ABG pCO2 (35-45) mmHg ABG pO2 (83-108) mmHg ABG O2 Saturation (94-97) % Sodium (137-145) mmol/L Potassium (3.5-5.1) mmol/L Chloride 119 H (98-107) mmol/L Carbon Dioxide 8 L* (22-30) mmol/L Creatinine (0.52-1.04) mg/dL Glucose 194 H (74-99) mg/dL POC Glucose (mg/dL) 187 H (70-110) mg/dL Plasma Lactic Acid Abelardo 4.2 H* (0.7-2.0) mmol/L Calcium (8.4-10.2) mg/dL Phosphorus 1.0 L* (2.5-4.5) mg/dL Magnesium (1.6-2.3) mg/dL Total Bilirubin (0.2-1.3) mg/dL Delta Bilirubin (0.0-0.2) mg/dL AST (14-36) U/L ALT (4-34) U/L Alkaline Phosphatase (38-126) U/L Troponin I (0.000-0.034) ng/mL Total Protein (6.3-8.2) g/dL Albumin (3.5-5.0) g/dL TSH (0.465-4.680) mIU/L Free T4 (0.78-2.19) ng/dL Free T3 pg/mL (2.30-4.20) pg/mL Urine Glucose (UA) (Negative) Urine Ketones (Negative) U Creatinine Drug Scrn (>=20.0) mg/dL 06/25/24 06/25/24 06/25/24 Range/Units 15:35 16:52 18:18 WBC (3.8-10.6) k/uL MCHC (31.0-37.0) g/dL Neutrophils # (1.3-7.7) k/uL Monocytes # (0-1.0) k/uL PT (10.0-12.5) sec INR (<1.2) APTT (22.0-30.0) sec ABG pH (7.35-7.45) ABG pCO2 (35-45) mmHg ABG pO2 (83-108) mmHg ABG O2 Saturation (94-97) % Sodium (137-145) mmol/L Potassium (3.5-5.1) mmol/L Chloride (98-107) mmol/L Carbon Dioxide (22-30) mmol/L Creatinine (0.52-1.04) mg/dL Glucose (74-99) mg/dL POC Glucose (mg/dL) 180 H (70-110) mg/dL Plasma Lactic Acid Abelardo 2.6 H* (0.7-2.0) mmol/L Calcium (8.4-10.2) mg/dL Phosphorus (2.5-4.5) mg/dL Magnesium (1.6-2.3) mg/dL Total Bilirubin (0.2-1.3) mg/dL Delta Bilirubin (0.0-0.2) mg/dL AST (14-36) U/L ALT (4-34) U/L Alkaline Phosphatase (38-126) U/L Troponin I 0.647 H* (0.000-0.034) ng/mL Total Protein (6.3-8.2) g/dL Albumin (3.5-5.0) g/dL TSH (0.465-4.680) mIU/L Free T4 (0.78-2.19) ng/dL Free T3 pg/mL (2.30-4.20) pg/mL Urine Glucose (UA) (Negative) Urine Ketones (Negative) U Creatinine Drug Scrn (>=20.0) mg/dL 06/25/24 06/25/24 06/25/24 Range/Units 18:23 18:42 20:11 WBC (3.8-10.6) k/uL MCHC (31.0-37.0) g/dL Neutrophils # (1.3-7.7) k/uL Monocytes # (0-1.0) k/uL PT (10.0-12.5) sec INR (<1.2) APTT (22.0-30.0) sec ABG pH (7.35-7.45) ABG pCO2 (35-45) mmHg ABG pO2 (83-108) mmHg ABG O2 Saturation (94-97) % Sodium (137-145) mmol/L Potassium (3.5-5.1) mmol/L Chloride (98-107) mmol/L Carbon Dioxide (22-30) mmol/L Creatinine (0.52-1.04) mg/dL Glucose (74-99) mg/dL POC Glucose (mg/dL) 170 H 162 H 153 H (70-110) mg/dL Plasma Lactic Acid Abelardo (0.7-2.0) mmol/L Calcium (8.4-10.2) mg/dL Phosphorus (2.5-4.5) mg/dL Magnesium (1.6-2.3) mg/dL Total Bilirubin (0.2-1.3) mg/dL Delta Bilirubin (0.0-0.2) mg/dL AST (14-36) U/L ALT (4-34) U/L Alkaline Phosphatase (38-126) U/L Troponin I (0.000-0.034) ng/mL Total Protein (6.3-8.2) g/dL Albumin (3.5-5.0) g/dL TSH (0.465-4.680) mIU/L Free T4 (0.78-2.19) ng/dL Free T3 pg/mL (2.30-4.20) pg/mL Urine Glucose (UA) (Negative) Urine Ketones (Negative) U Creatinine Drug Scrn (>=20.0) mg/dL 06/25/24 06/25/24 06/25/24 Range/Units 20:59 21:47 21:51 WBC (3.8-10.6) k/uL MCHC (31.0-37.0) g/dL Neutrophils # (1.3-7.7) k/uL Monocytes # (0-1.0) k/uL PT (10.0-12.5) sec INR (<1.2) APTT (22.0-30.0) sec ABG pH (7.35-7.45) ABG pCO2 (35-45) mmHg ABG pO2 (83-108) mmHg ABG O2 Saturation (94-97) % Sodium 134 L (137-145) mmol/L Potassium (3.5-5.1) mmol/L Chloride 112 H (98-107) mmol/L Carbon Dioxide 13 L (22-30) mmol/L Creatinine (0.52-1.04) mg/dL Glucose 147 H (74-99) mg/dL POC Glucose (mg/dL) 163 H 144 H (70-110) mg/dL Plasma Lactic Acid Abelardo (0.7-2.0) mmol/L Calcium (8.4-10.2) mg/dL Phosphorus (2.5-4.5) mg/dL Magnesium (1.6-2.3) mg/dL Total Bilirubin (0.2-1.3) mg/dL Delta Bilirubin (0.0-0.2) mg/dL AST 321 H (14-36) U/L ALT 132 H (4-34) U/L Alkaline Phosphatase 181 H (38-126) U/L Troponin I (0.000-0.034) ng/mL Total Protein 6.1 L (6.3-8.2) g/dL Albumin 2.9 L (3.5-5.0) g/dL TSH (0.465-4.680) mIU/L Free T4 (0.78-2.19) ng/dL Free T3 pg/mL (2.30-4.20) pg/mL Urine Glucose (UA) (Negative) Urine Ketones (Negative) U Creatinine Drug Scrn (>=20.0) mg/dL 06/25/24 06/25/24 06/26/24 Range/Units 22:57 23:53 01:03 WBC (3.8-10.6) k/uL MCHC (31.0-37.0) g/dL Neutrophils # (1.3-7.7) k/uL Monocytes # (0-1.0) k/uL PT (10.0-12.5) sec INR (<1.2) APTT (22.0-30.0) sec ABG pH (7.35-7.45) ABG pCO2 (35-45) mmHg ABG pO2 (83-108) mmHg ABG O2 Saturation (94-97) % Sodium (137-145) mmol/L Potassium (3.5-5.1) mmol/L Chloride (98-107) mmol/L Carbon Dioxide (22-30) mmol/L Creatinine (0.52-1.04) mg/dL Glucose (74-99) mg/dL POC Glucose (mg/dL) 130 H 130 H 156 H (70-110) mg/dL Plasma Lactic Acid Abelardo (0.7-2.0) mmol/L Calcium (8.4-10.2) mg/dL Phosphorus (2.5-4.5) mg/dL Magnesium (1.6-2.3) mg/dL Total Bilirubin (0.2-1.3) mg/dL Delta Bilirubin (0.0-0.2) mg/dL AST (14-36) U/L ALT (4-34) U/L Alkaline Phosphatase (38-126) U/L Troponin I (0.000-0.034) ng/mL Total Protein (6.3-8.2) g/dL Albumin (3.5-5.0) g/dL TSH (0.465-4.680) mIU/L Free T4 (0.78-2.19) ng/dL Free T3 pg/mL (2.30-4.20) pg/mL Urine Glucose (UA) (Negative) Urine Ketones (Negative) U Creatinine Drug Scrn (>=20.0) mg/dL 06/26/24 06/26/24 06/26/24 Range/Units 02:00 03:01 03:01 WBC (3.8-10.6) k/uL MCHC (31.0-37.0) g/dL Neutrophils # (1.3-7.7) k/uL Monocytes # (0-1.0) k/uL PT (10.0-12.5) sec INR (<1.2) APTT (22.0-30.0) sec ABG pH (7.35-7.45) ABG pCO2 (35-45) mmHg ABG pO2 (83-108) mmHg ABG O2 Saturation (94-97) % Sodium 131 L (137-145) mmol/L Potassium (3.5-5.1) mmol/L Chloride 111 H (98-107) mmol/L Carbon Dioxide 11 L (22-30) mmol/L Creatinine 0.51 L (0.52-1.04) mg/dL Glucose 236 H (74-99) mg/dL POC Glucose (mg/dL) 190 H (70-110) mg/dL Plasma Lactic Acid Abelardo (0.7-2.0) mmol/L Calcium 7.1 L (8.4-10.2) mg/dL Phosphorus 7.5 H (2.5-4.5) mg/dL Magnesium 1.5 L (1.6-2.3) mg/dL Total Bilirubin 1.5 H (0.2-1.3) mg/dL Delta Bilirubin (0.0-0.2) mg/dL AST 341 H (14-36) U/L ALT 154 H (4-34) U/L Alkaline Phosphatase 194 H (38-126) U/L Troponin I (0.000-0.034) ng/mL Total Protein 6.0 L (6.3-8.2) g/dL Albumin 2.9 L (3.5-5.0) g/dL TSH (0.465-4.680) mIU/L Free T4 (0.78-2.19) ng/dL Free T3 pg/mL (2.30-4.20) pg/mL Urine Glucose (UA) (Negative) Urine Ketones (Negative) U Creatinine Drug Scrn (>=20.0) mg/dL 06/26/24 06/26/24 06/26/24 Range/Units 03:24 04:09 05:16 WBC (3.8-10.6) k/uL MCHC (31.0-37.0) g/dL Neutrophils # (1.3-7.7) k/uL Monocytes # (0-1.0) k/uL PT (10.0-12.5) sec INR (<1.2) APTT (22.0-30.0) sec ABG pH (7.35-7.45) ABG pCO2 (35-45) mmHg ABG pO2 (83-108) mmHg ABG O2 Saturation (94-97) % Sodium (137-145) mmol/L Potassium (3.5-5.1) mmol/L Chloride (98-107) mmol/L Carbon Dioxide (22-30) mmol/L Creatinine (0.52-1.04) mg/dL Glucose (74-99) mg/dL POC Glucose (mg/dL) 265 H 252 H 244 H (70-110) mg/dL Plasma Lactic Acid Abelardo (0.7-2.0) mmol/L Calcium (8.4-10.2) mg/dL Phosphorus (2.5-4.5) mg/dL Magnesium (1.6-2.3) mg/dL Total Bilirubin (0.2-1.3) mg/dL Delta Bilirubin (0.0-0.2) mg/dL AST (14-36) U/L ALT (4-34) U/L Alkaline Phosphatase (38-126) U/L Troponin I (0.000-0.034) ng/mL Total Protein (6.3-8.2) g/dL Albumin (3.5-5.0) g/dL TSH (0.465-4.680) mIU/L Free T4 (0.78-2.19) ng/dL Free T3 pg/mL (2.30-4.20) pg/mL Urine Glucose (UA) (Negative) Urine Ketones (Negative) U Creatinine Drug Scrn (>=20.0) mg/dL 06/26/24 06/26/24 06/26/24 Range/Units 05:47 05:47 05:47 WBC 27.0 H (3.8-10.6) k/uL MCHC (31.0-37.0) g/dL Neutrophils # 24.3 H (1.3-7.7) k/uL Monocytes # 1.2 H (0-1.0) k/uL PT (10.0-12.5) sec INR (<1.2) APTT (22.0-30.0) sec ABG pH (7.35-7.45) ABG pCO2 (35-45) mmHg ABG pO2 (83-108) mmHg ABG O2 Saturation (94-97) % Sodium 130 L (137-145) mmol/L Potassium (3.5-5.1) mmol/L Chloride 109 H (98-107) mmol/L Carbon Dioxide 14 L (22-30) mmol/L Creatinine (0.52-1.04) mg/dL Glucose 255 H (74-99) mg/dL POC Glucose (mg/dL) (70-110) mg/dL Plasma Lactic Acid Abelardo (0.7-2.0) mmol/L Calcium 7.3 L (8.4-10.2) mg/dL Phosphorus 5.4 H (2.5-4.5) mg/dL Magnesium (1.6-2.3) mg/dL Total Bilirubin 1.4 H 1.4 H (0.2-1.3) mg/dL Delta Bilirubin 0.5 H (0.0-0.2) mg/dL AST 364 H 364 H (14-36) U/L ALT 164 H 164 H (4-34) U/L Alkaline Phosphatase 216 H 221 H (38-126) U/L Troponin I (0.000-0.034) ng/mL Total Protein 5.9 L 6.0 L (6.3-8.2) g/dL Albumin 2.9 L 2.9 L (3.5-5.0) g/dL TSH <0.015 L (0.465-4.680) mIU/L Free T4 (0.78-2.19) ng/dL Free T3 pg/mL (2.30-4.20) pg/mL Urine Glucose (UA) (Negative) Urine Ketones (Negative) U Creatinine Drug Scrn (>=20.0) mg/dL 06/26/24 06/26/24 06/26/24 Range/Units 06:13 07:01 08:07 WBC (3.8-10.6) k/uL MCHC (31.0-37.0) g/dL Neutrophils # (1.3-7.7) k/uL Monocytes # (0-1.0) k/uL PT (10.0-12.5) sec INR (<1.2) APTT (22.0-30.0) sec ABG pH (7.35-7.45) ABG pCO2 (35-45) mmHg ABG pO2 (83-108) mmHg ABG O2 Saturation (94-97) % Sodium (137-145) mmol/L Potassium (3.5-5.1) mmol/L Chloride (98-107) mmol/L Carbon Dioxide (22-30) mmol/L Creatinine (0.52-1.04) mg/dL Glucose (74-99) mg/dL POC Glucose (mg/dL) 235 H 229 H 169 H (70-110) mg/dL Plasma Lactic Acid Abelardo (0.7-2.0) mmol/L Calcium (8.4-10.2) mg/dL Phosphorus (2.5-4.5) mg/dL Magnesium (1.6-2.3) mg/dL Total Bilirubin (0.2-1.3) mg/dL Delta Bilirubin (0.0-0.2) mg/dL AST (14-36) U/L ALT (4-34) U/L Alkaline Phosphatase (38-126) U/L Troponin I (0.000-0.034) ng/mL Total Protein (6.3-8.2) g/dL Albumin (3.5-5.0) g/dL TSH (0.465-4.680) mIU/L Free T4 (0.78-2.19) ng/dL Free T3 pg/mL (2.30-4.20) pg/mL Urine Glucose (UA) (Negative) Urine Ketones (Negative) U Creatinine Drug Scrn (>=20.0) mg/dL Assessment and Plan Plan: DKA with severe anion gap metabolic acidosis. The patient has a combination of lactic acidosis and diabetic ketoacidosis. The lactic acidosis improved. Lactic acid level normalized. The patient was treated with DKA protocol. The anion gap is down to 7. Serum bicarb is at 14. Will continue treatment till the serum bicarb normalizes further. She is currently on insulin drip at 3.7 units an hour and D5 half-normal saline at rate of 150 cc an hour. Neurologically improved. Acute altered mentation secondary to above, CAT scan of the brain is negative. Neurologic exam is nonfocal. Type 1 diabetes mellitus maintained on a combination of Farxiga, Mounjaro and Lantus insulin on outpatient basis. Blood sugar control has been poor on outpatient basis. Noted the patient was switched to a insulin pump and the pump was not functioning appropriately which probably put this patient to DKA. She has not been taking her Lantus insulin. Sinus tachycardia, most likely secondary to dehydration. She also has hyperthyroidism which could be contributing to her sinus tachycardia Severe dehydration, improved Leukocytosis, likely reactive. No signs of any infection or septicemia at this point in time. Troponin leak, likely type II ischemia Mild transaminitis LFTs are still elevated. Graves disease Hyperthyroidism, maintained on cefazolin outpatient basis History of atrial fibrillation, current rhythm is sinus. alpha 1 AT deficiency, MZ Plan Continue insulin drip and DKA protocol to the patient serum bicarb is above 18 Blood sugar on an hourly basis Electrolytes every 4 hours Check amylase and lipase and CPK are within normal limits Check hemoglobin A1c pending Lactic acid level normalized Check test was negative Room air oxygen Restarted Tapazole Restart atenolol Restart anticoagulation with Eliquis for history of atrial fibrillation Ultrasound the gallbladder and liver Hepatitis profile Will continue to follow
[2024-06-26 12:01] LABS: Glucose,Whole Blood 224 mg/dL (70-110)
[2024-06-26] MEDS: AMPICILLIN-SULBACTAM 3 GM in SODIUM CHLORIDE 0.9% 100 ML IVPB SCH (12:18)
[2024-06-26 12:21] LABS: Phosphorus 4.4 mg/dL (2.5-4.5)
--- NOTE | 2024-06-26 12:22 | CDI ---
Documentation Clarification Form Date: 06/26/2024 From: Naz Noble RN CCDS Phone: [phone] Admit Date: 06/25/2024 11:22:00 AM Patient Name: Cristina Guerra Visit Number: [id number] Discharge Date: ATTENTION: The Clinical Documentation Specialists (CDI) and [facility] Coding Staff appreciate your assistance in clarifying documentation. Please respond to the clarification below the line at the bottom and electronically sign. The CDI & [facility] Coding staff will review the response and follow-up if needed. Please note: Queries are made part of the Legal Health Record. If you have any questions, please contact the author of this message via ITS. Doctor/Provider: Rolando Jacobsen MD: Your patient has the documented symptom of Altered Mentation in the Pulmonary consult 06/25. Additional clarification regarding the etiology/cause of this symptom is requested. History/Risk Factors: 44-year-old female with a history of DM1, AFIb, and thyroid disorder who presents with DKA, Sinus tachycardia and severe dehydration Clinical Indicators: 06/25 Pulmonary consult, Plan: "DKA with severe anion gap metabolic acidosis. The patient has a combination of lactic acidosis and diabetic ketoacidosis. Acute altered mentation secondary to above, CAT scan of the brain is negative, Neurological exam is nonfocal." 06/25-06/26 Glucose POC range: 530(06/25)-130(06/25) Sodium: 136, 141, 140, 134, 131, 130, 135 Calcium: 8.6, 8.4, 7.1, 7.3, 7.6 Phosphorus: 6.9, 1.0, 7.5, 5.4 AST: 106, 321, 341, 364, 364, 357 ALT: 68, 132, 154, 164, 164, 170 06/25 Lactic Acid: 22, 4.2, 2.6, 1.6 Treatment: Normal Saline 1000cc bolus x3 on 06/25 followed by 200cc/hour, then 500cc bolus once 06/25 D5 and 1/2 normal saline 150cc/hour start 06/25 Regular insulin 4unit bolus then titrated drip start 06/25 Please clarify the etiology of the symptom of Altered Mentation: [ ] Metabolic Encephalopathy due to DKA [ ] Other condition (please specify) [ ] Unable to determine MTDD
[2024-06-26] MEDS: IOPAMIDOL CONTRAST (ORAL USE) VIAL PO PRN (12:36)
--- NOTE | 2024-06-26 12:38 | CDI ---
Documentation Clarification Form Date: 06/26/2024 From: Naz Noble RN CCDS Phone: [phone] Admit Date: 06/25/2024 11:22:00 AM Patient Name: Cristina Guerra Visit Number: [id number] Discharge Date: ATTENTION: The Clinical Documentation Specialists (CDI) and [facility] Coding Staff appreciate your assistance in clarifying documentation. Please respond to the clarification below the line at the bottom and electronically sign. The CDI & [facility] Coding staff will review the response and follow-up if needed. Please note: Queries are made part of the Legal Health Record. If you have any questions, please contact the author of this message via ITS. Doctor/Provider: Rolando Jacobsen MD: Conflicting documentation has been found in the medical record. As attending physician, please provide clarification. 06/26 Pulmonology PN, Subjective, 06/26: "The white cell count remains elevated at 27. No signs of any infection or septicemia and this is likely reactive in nature." 06/26 H&P: "Sepsis, antibiotics, started Maxipime, Sinus tachycardia, hyperthyroidism, DKA" History/Risk Factors: 44-year-old female with a history of DM1, AFIb, and thyroid disorder who presents with DKA, Sinus tachycardia and severe dehydration Clinical Indicators: 06/25 Triage VS: 111/58, 93.9, 146, 30, 100% room air 06/25-06/25 Temperature max: 100.0 on 06/25 06/25, 06/26 WBC: 25.9, 27.0 06/25 Lactic Acid: 22, 4.2, 2.6, 1.6 Treatment: Normal Saline 1000cc bolus x3 on 06/25 followed by 200cc/hour, then 500cc bolus once 06/25 Ampicillin 3gram IV [id number] to start 06/26 Maxipime 2gram IV [id number] start 06/25 Please clarify which diagnosis is most appropriate: [ ] Sepsis POA ruled out [ ] Sepsis POA ruled in [ ] Sepsis developed during admission and treated [ ] Other (please specify) [ ] Unable to determine MTDD
--- NOTE | 2024-06-26 12:51 | CDI ---
Documentation Clarification Form Date: 06/26/2024 From: Naz Noble RN CCDS Phone: [phone] Admit Date: 06/25/2024 11:22:00 AM Patient Name: Cristina Guerra Visit Number: [id number] Discharge Date: ATTENTION: The Clinical Documentation Specialists (CDI) and [facility] Coding Staff appreciate your assistance in clarifying documentation. Please respond to the clarification below the line at the bottom and electronically sign. The CDI & [facility] Coding staff will review the response and follow-up if needed. Please note: Queries are made part of the Legal Health Record. If you have any questions, please contact the author of this message via ITS. Doctor/Provider: Nelly Penny MD: Your patient has troponin level(s) of: 0.082 and 0.647 on 06/25. Please clarify if there is an additional diagnosis and/or clinical significance related to this value. Patient history/risk factors: 44-year-old female with a history of DM1, AFIb, and thyroid disorder who presents with DKA, Sinus tachycardia and severe dehydration Clinical indicators: 06/25 Triage VS: 111/58, 93.9, 146, 30, 100% room air 06/25 Heart rate max: 146, Respiratory rate max: 31 06/26 Heart rate max: 100, Respiratory rate range: 20-32 06/25 Pulmonology Consult, Plan: "Troponin leak, likely type II ischemia." Treatment: Normal Saline 1000cc bolus x3 on 06/25 followed by 200cc/hour, then 500cc bolus once 06/25 Metoprolol Tartrate 5mg IVP [id number] PRN given once 06/25 Tenormin 50mg oral BID start 06/25 Aspirin 81mg oral daily start 06/26 Is there an additional diagnosis and/or clinical significance related to the above lab result/information: [ ] Type 2 WV due to (specify cause _x___) [ ] Non-ischemic with acute myocardial injury [ ] No additional diagnosis/Not clinically significant [ ] Other, please specify [ ] Unable to determine Reference: [employer] Fourth [place] Definition of Myocardial Infarction Elevated Cardiac Troponin >99th percentile with Troponin rise and/or fall With Acute ischemia o Acute Myocardial Infarction ? Atherosclerosis thrombosis Type I WV ? Oxygen supply and demand imbalance Type II WV (Please indicate etiology) Without acute ischemia o Acute Myocardial Injury MTDD
[2024-06-26 13:03] LABS: Glucose,Whole Blood 242 mg/dL (70-110)
[2024-06-26 13:05] LABS: Appearance,Urine Clear (Clear); Bilirubin,Urine Negative (Negative); Blood,Urine Negative (Negative); Color,Urine Colorless; Glucose,Urine (UA) 4+ (Negative); Ketones,Urine 1+ (Negative); Leukocyte Esterase,Urine Negative (Negative); Nitrite,Urine Negative (Negative); Protein,Urine Negative (Negative); Specific Gravity,Urine 1.016 (1.001-1.035); Urobilinogen,Urine <2.0 mg/dL (<2.0)
[2024-06-26 13:32] LABS: ALT 165 U/L (4-34); AST 315 U/L (14-36); African American GFR (CKD) >90 (>60 ml/min/1.73 sqM); Albumin 2.8 g/dL (3.5-5.0); Alkaline Phosphatase 192 U/L (38-126); Anion Gap 7 mmol/L; Blood Urea Nitrogen 13 mg/dL (7-17); Calcium 7.6 mg/dL (8.4-10.2); Carbon Dioxide 15 mmol/L (22-30); Chloride 109 mmol/L (98-107); Glucose 247 mg/dL (74-99); Non-African American GFR(CKD) >90 (>60 ml/min/1.73 sqM); Potassium 4.4 mmol/L (3.5-5.1); Sodium 131 mmol/L (137-145); Total Bilirubin 1.3 mg/dL (0.2-1.3); Total Protein 5.8 g/dL (6.3-8.2)
[2024-06-26 13:52] LABS: Phosphorus 3.6 mg/dL (2.5-4.5)
[2024-06-26 14:29] LABS: Glucose,Whole Blood 290 mg/dL (70-110)
[2024-06-26 15:00] LABS: Glucose,Whole Blood 283 mg/dL (70-110)
--- NOTE | 2024-06-26 15:15 | CT ---
EXAMINATION TYPE: CT abdomen pelvis w con DATE OF EXAM: 06/26/2024 2:27 PM COMPARISON: 06/26/2024. CLINICAL INDICATION: Female, 44 years old with history of Right upper quadrant tenderness elevated li manan enz; RUQ pain, elevated liver enzymes TECHNIQUE: Axial CT abdomen pelvis w con;Sagittal and coronal reformats were created on a separate w orkstation. Contrast used:100 mL of Isovue 300 with IV Contrast, (none if empty) Oral contrast used: with Oral Contrast (none if empty) CT DLP: 805.1 mGycm, Automated exposure control for dose reduction was used. FINDINGS: LOWER CHEST: Unremarkable ABDOMEN LIVER: Diffusely hypoattenuating parenchyma. GALLBLADDER AND BILE DUCTS: Fluid is seen around the gallbladder gallbladder is within normal limits for size. No evidence for hydropic gallbladder. No evidence for wall thickening. PANCREAS: Unremarkable. SPLEEN: Heterogenous enhancement pattern to the spleen likely due to phase of contrast. ADRENAL GLANDS: Unremarkable. KIDNEYS AND URETERS: No evidence of hydronephrosis or renal calculus. The ureters are unremarkable. PELVIS BLADDER: No evidence for wall thickening or mass given limitations of exam. REPRODUCTIVE: Unremarkable. ABDOMEN & PELVIS STOMACH AND BOWEL: No evidence of bowel obstruction. The appendix is not visualized. PERITONEUM/RETROPERITONEUM: No evidence of pneumoperitoneum. There is a small amount of free fluid la yering in the pelvis and around the gallbladder fossa. VASCULATURE: No evidence of aortic aneurysm. MUSCULOSKELETAL: No acute osseous abnormalities LYMPH NODES: No gross evidence for lymphadenopathy. SOFT TISSUE/ABDOMINAL WALL: Fat-containing umbilical hernia. IMPRESSION: 1. There is free fluid layering in the pelvis and around the gallbladder. However the gallbladder is not distended and there is no evidence for gallbladder wall thickening or evidence for cholelithiasi s/choledocholithiasis. Consider evaluation with HIDA scan if this concern for acute cholecystitis. 2. Hepatic steatosis. [facility], Workstation: [id number], 06/26/2024 3:12 PM
--- NOTE | 2024-06-26 15:31 | P.CRDCN ---
History of Present Illness Consult date: 06/26/24 History of present illness: HISTORY OF PRESENTING ILLNESS 44-year-old female with past medical history of type 1 diabetes, paroxysmal atrial fibrillation diagnosed in 2020. On anticoagulation with Eliquis. Known to Dr. Santoro. She presented to the hospital because of altered mental status. On admission she was noticed to be in diabetic ketoacidosis with serum bicarb less than 5, pH 6.9, pCO2 less than 15, lactic acid of 22 oh. She also had evidence of severe dehydration. Creatinine of 1.4. She had evidence of elevated troponin at 0.08, 0.64. She was transferred to an ICU and was managed with IV insulin drip and IV fluids. On admission her ECG showed sinus tachycardia. At the time of evaluation, her heart rate was down to 80s, blood pressure was stable. She denies any symptoms of chest pain chest pressure palpitations lightheadedness or dizziness. She does report some abdominal discomfort. REVIEW OF SYSTEMS 14 point review of system is negative except what is mentioned above in HPI. PHYSICAL EXAMINATION Vital signs reviewed. Head: Normocephalic. Eyes: Sclerae nonicteric. Neck: Brisk carotid upstroke, no jugular venous distention. Lungs: Clear to auscultation. Heart: Regular rate and rhythm, S1-S2, no S3, no murmur or rub. Abdomen: Soft nontender, positive bowel sounds. Extremities: No edema, intact distal pulses. Neuro: Alert, oritented, no focal deficits. Detailed neuro exam was not performed. ASSESSMENT Elevated troponin, likely type II NSTEMI History of paroxysmal atrial fibrillation, sinus tachycardia on admission. Currently sinus rhythm Severe dehydration and diabetic ketoacidosis due to failure of insulin pump Mild transaminitis History of hyperthyroidism on methimazole PLAN At this time elevated troponin is most likely because of severe dehydration, acidosis. This likely related to acute coronary syndrome. No ECG changes restive of acute ischemia. Patient denies any chest pain. Obtain recent stress test and echocardiogram reports from [facility]. Continue aspirin, Continue Xarelto for history of atrial fibrillation She would benefit from being on a statin once her liver function improves back to normal. It is unclear if patient was on Mounjaro and Farxiga on outpatient basis. It is listed in her home medication however patient denies being on it. Would recommend not to resume it on discharge as they are contraindicated in type 1 diabetes. Monitor renal function, electrolytes, telemetry. Kieran Castillo MD, FACC, RPVI Thank you for allowing [facility] to participate in this patient's care. Feel free to reach out in case of any followup questions. Past Medical History Past Medical History: Atrial Fibrillation, Diabetes Mellitus, Thyroid Disorder History of Any Multi-Drug Resistant Organisms: None Reported Past Surgical History: No Surgical Hx Reported Past Anesthesia/Blood Transfusion Reactions: No Reported Reaction Past Psychological History: No Psychological Hx Reported Smoking Status: Never smoker Past Alcohol Use History: None Reported Past Drug Use History: None Reported - Past Family History Mother Family Medical History: Hypertension Father Family Medical History: Diabetes Mellitus Medications and Allergies Home Medications Medication Instructions Recorded Confirmed Type Acetaminophen Tab [Tylenol] 500 - 1,000 mg PO Q6HR PRN 10/23/20 06/25/24 History Aspirin EC [Ecotrin Low Dose] 81 mg PO DAILY 06/25/24 06/25/24 History Dapagliflozin Propanediol [Farxiga] 5 mg PO DAILY 06/25/24 06/25/24 History Dextroamphetamine/Amphetamine 20 mg PO BID@0900,1400 06/25/24 06/25/24 History [Adderall] Fexofenadine HCl [Jyotsna Allergy] 180 mg PO DAILY 06/25/24 06/25/24 History INSULIN LISPRO (HumaLOG) [humaLOG] 10 units SQ AC-TID 06/25/24 06/25/24 History Insulin Glargine,Hum.rec.anlog 20 units SQ DAILY 06/25/24 06/25/24 History [Lantus Solostar Pen] Pantoprazole [Protonix] 40 mg PO HS 06/25/24 06/25/24 History Rivaroxaban [Xarelto] 10 mg PO DAILY 06/25/24 06/25/24 History Tirzepatide [Mounjaro] 5 mg SQ Q7D 06/25/24 06/25/24 History atenoloL [Tenormin] 50 mg PO BID 06/25/24 06/25/24 History methIMAzole [Tapazole] 10 mg PO BID 06/25/24 06/25/24 History Allergies Allergy/AdvReac Type Severity Reaction Status Date / Time meperidine [From Demerol] Allergy syncope Verified 06/25/24 10:46 moxifloxacin [From Avelox] Allergy palpitation Verified 06/25/24 10:46 s Physical Exam Vitals: Vital Signs Temp Pulse Resp BP Pulse Ox 06/26/24 15:00 93 27 H 99/62 98 06/26/24 14:00 96/61 06/26/24 13:00 102 H 23 101/65 06/26/24 12:00 97.4 F L 100 32 H 111/77 98 06/26/24 11:27 98 06/26/24 11:18 98 06/26/24 11:00 98 26 H 106/72 99 06/26/24 10:00 98 23 108/70 100 06/26/24 09:00 94 15 108/73 100 06/26/24 08:33 96 06/26/24 08:23 97 06/26/24 08:22 89 06/26/24 08:00 97.4 F L 89 22 103/70 99 06/26/24 07:00 87 25 H 91/67 99 06/26/24 06:00 87 25 H 92/70 98 06/26/24 05:00 87 23 93/68 99 06/26/24 04:00 99.5 F 83 20 85/71 99 06/26/24 03:00 87 22 85/71 99 06/26/24 02:00 93 24 85/62 98 06/26/24 01:00 90 24 81/60 98 06/26/24 00:07 89 22 99 06/26/24 00:00 99.5 F 91 23 82/64 98 06/25/24 23:00 94 24 82/60 98 06/25/24 22:00 103 H 24 95/66 98 06/25/24 21:00 113 H 16 131/69 97 06/25/24 20:56 114 H 06/25/24 20:46 117 H 06/25/24 20:30 118 H 21 99 06/25/24 20:00 100.0 F H 146 H 23 123/70 98 06/25/24 19:30 144 H 23 97 06/25/24 19:00 141 H 24 127/74 98 06/25/24 18:45 146 H 25 H 98 06/25/24 18:30 141 H 25 H 98 06/25/24 18:15 141 H 19 127/74 99 06/25/24 18:00 146 H 23 98 06/25/24 17:45 146 H 28 H 97 06/25/24 17:30 149 H 29 H 98 06/25/24 17:15 149 H 25 H 97 06/25/24 17:00 152 H 31 H 107/64 97 06/25/24 16:45 152 H 28 H 107/64 98 06/25/24 16:30 156 H 32 H 113/62 98 06/25/24 16:15 170 H 31 H 113/62 98 06/25/24 16:00 98.9 F 160 H 30 H 120/63 98 06/25/24 15:45 163 H 25 H 120/63 98 Intake and Output 06/26/24 06/26/24 06/26/24 06:59 14:59 22:59 Intake Total 8522.006 3504.375 151.217 Output Total 645 1035 30 Balance 662.647 6312.375 121.217 Intake: IV 1600 300 D5-0.45% NaCl with KCl 1200 300 20Meq/l 1,000 ml @ 150 mls/hr IV .Q6H40M [facility] Rx# :[id number] Magnesium Sulfate-D5w Pmx 200 1 gm In Dextrose/Water 1 100ml.bag @ 100 mls/hr IVPB Q1H [facility] Rx#: [id number] Potassium Chloride 10 meq 200 In Water For Injection 1 100ml.bag @ 100 mls/hr IVPB Q1H [facility] Rx#: [id number] Intake, IV Titration 138 1024.375 151.217 Amount Ampicillin-Sulbactam 3 gm 100 In Sodium Chloride 0.9% 100 ml @ 200 mls/hr IVPB Q6HR [facility] Rx#:[id number] D5-0.45% NaCl with KCl 900 150 20Meq/l 1,000 ml @ 150 mls/hr IV .Q6H40M [facility] Rx# :[id number] Insulin Regular 100 unit 13.718 24.375 1.217 In Sodium Chloride 0.9% 100 ml @ 0.1 UNITS/KG/HR 6.872 mls/hr IV .[id number] [facility] Rx#:[id number] Oral 1200 Output: Urine 645 1035 30 Other: Voiding Method Indwelling Catheter Indwelling Catheter Weight 70.3 kg 70.3 kg Results 06/26/24 05:47 06/26/24 12:58 Cardiac Enzymes 06/25/24 06/25/24 06/26/24 Range/Units 15:35 21:47 03:01 AST 321 H 341 H (14-36) U/L Troponin I 0.647 H* (0.000-0.034) ng/mL 06/26/24 06/26/24 06/26/24 Range/Units 05:47 05:47 09:03 AST 364 H 364 H 357 H (14-36) U/L Troponin I (0.000-0.034) ng/mL 06/26/24 Range/Units 12:58 AST 315 H (14-36) U/L Troponin I (0.000-0.034) ng/mL CBC 06/26/24 Range/Units 05:47 WBC 27.0 H (3.8-10.6) k/uL RBC 4.30 (3.80-5.40) m/uL Hgb 11.4 (11.4-16.0) gm/dL Hct 36.2 (34.0-46.0) % Plt Count 167 (150-450) k/uL Comprehensive Metabolic Panel 06/25/24 06/25/24 06/26/24 Range/Units 15:28 21:47 03:01 Sodium 140 134 L 131 L (137-145) mmol/L Potassium 3.7 3.7 4.8 (3.5-5.1) mmol/L Chloride 119 H 112 H 111 H (98-107) mmol/L Carbon Dioxide 8 L* 13 L 11 L (22-30) mmol/L BUN 16 14 16 (7-17) mg/dL Creatinine 0.66 0.55 0.51 L (0.52-1.04) mg/dL Glucose 194 H 147 H 236 H (74-99) mg/dL Calcium 8.4 7.1 L (8.4-10.2) mg/dL Unconjugated Bilirubin (0.0-1.1) mg/dL AST 321 H 341 H (14-36) U/L ALT 132 H 154 H (4-34) U/L Alkaline Phosphatase 181 H 194 H (38-126) U/L Total Protein 6.1 L 6.0 L (6.3-8.2) g/dL Albumin 2.9 L 2.9 L (3.5-5.0) g/dL 06/26/24 06/26/24 06/26/24 Range/Units 05:47 05:47 09:03 Sodium 130 L 135 L (137-145) mmol/L Potassium 4.3 3.8 (3.5-5.1) mmol/L Chloride 109 H 109 H (98-107) mmol/L Carbon Dioxide 14 L 17 L (22-30) mmol/L BUN 15 14 (7-17) mg/dL Creatinine 0.52 0.48 L (0.52-1.04) mg/dL Glucose 255 H 150 H (74-99) mg/dL Calcium 7.3 L 7.6 L (8.4-10.2) mg/dL Unconjugated Bilirubin 0.9 (0.0-1.1) mg/dL AST 364 H 364 H 357 H (14-36) U/L ALT 164 H 164 H 170 H (4-34) U/L Alkaline Phosphatase 216 H 221 H 191 H (38-126) U/L Total Protein 5.9 L 6.0 L 6.1 L (6.3-8.2) g/dL Albumin 2.9 L 2.9 L 3.0 L (3.5-5.0) g/dL 06/26/24 Range/Units 12:58 Sodium 131 L (137-145) mmol/L Potassium 4.4 (3.5-5.1) mmol/L Chloride 109 H (98-107) mmol/L Carbon Dioxide 15 L (22-30) mmol/L BUN 13 (7-17) mg/dL Creatinine 0.46 L (0.52-1.04) mg/dL Glucose 247 H (74-99) mg/dL Calcium 7.6 L (8.4-10.2) mg/dL Unconjugated Bilirubin (0.0-1.1) mg/dL AST 315 H (14-36) U/L ALT 165 H (4-34) U/L Alkaline Phosphatase 192 H (38-126) U/L Total Protein 5.8 L (6.3-8.2) g/dL Albumin 2.8 L (3.5-5.0) g/dL Current Medications Generic Name Dose Route Start Last Admin Trade Name Freq PRN Reason Stop Dose Admin Acetaminophen 650 mg 06/25/24 20:12 06/26/24 12:22 Acetaminophen Tab 325 Mg Tab PO 650 mg Q6HR PRN Administration Fever and/ or Mild Pain Albuterol/Ipratropium 3 ml 06/25/24 20:00 06/26/24 11:16 Ipratropium-Albuterol 3 Ml Neb INHALATION 3 ml RT-QID [facility] Administration Aspirin 81 mg 06/26/24 09:00 06/26/24 09:46 Aspirin 81 Mg PO 81 mg DAILY [facility] Administration Atenolol 50 mg 06/25/24 21:00 06/26/24 09:46 Atenolol 50 Mg Tab PO 50 mg BID [facility] Administration Dextrose/Water 25 ml 06/25/24 09:31 Dextrose 50% Syringe 50 Ml IVP PER PROTOCOL PRN Hypoglycemia Protocol Dextrose/Water 50 ml 06/25/24 09:31 Dextrose 50% Syringe 50 Ml IVP PER PROTOCOL PRN Hypoglycemia Protocol Insulin Human Regular 100 unit 101 mls @ 6.872 mls/hr 06/25/24 09:45 06/26/24 15:14 / Sodium Chloride IV 0.04 units/kg/hr .[id number] [facility] 2.825 mls/hr Titration Protocol 0.1 UNITS/KG/HR Sodium Chloride 1,000 mls @ 500 mls/hr 06/25/24 09:31 06/25/24 11:08 Saline 0.9% IV 500 mls/hr .Q2H ONE Administration Potassium Chloride/Dextrose/Sod Cl 1,000 mls @ 150 mls/hr 06/25/24 14:00 06/26/24 09:47 D5%-1/2ns-Kcl 20 Meq/L Iv Solution IV 150 mls/hr .Q6H40M [facility] Administration Ampicillin Sodium/Sulbactam 100 mls @ 200 mls/hr 06/26/24 12:00 06/26/24 12:18 Sodium 3 gm/ Sodium Chloride IVPB 200 mls/hr Q6HR [facility] Administration Protocol Loratadine 10 mg 06/26/24 09:00 06/26/24 09:46 Loratadine 10 Mg Tab PO 10 mg DAILY [facility] Administration Methimazole 10 mg 06/25/24 21:00 06/26/24 09:46 Methimazole 5 Mg Tab PO 10 mg BID [facility] Administration Metoprolol Tartrate 5 mg 06/25/24 20:02 06/25/24 20:25 Metoprolol Tartrate 5 Mg/5 Ml Vial IVP 5 mg Q6HR PRN Administration Heart Rate - HIGH Miscellaneous Information 1 each 06/25/24 09:31 Magnesium Replacement Protocol [address] [facility] [place] MISCELLANE DAILY PRN Per Protocol Protocol Miscellaneous Information 1 each 06/25/24 09:31 Potassium Replacement Protocol [address] [facility] [place] MISCELLANE DAILY PRN Per Protocol Miscellaneous Information 1 each 06/25/24 18:22 Phosphorus Replacement Protoco [address] [facility] [place] MISCELLANE DAILY PRN Per Protocol Protocol Naloxone HCl 0.2 mg 06/25/24 11:20 Naloxone 0.4 Mg/Ml 1 Ml Vial IV Q2M PRN Opioid Reversal Ondansetron HCl 4 mg 06/25/24 15:23 06/26/24 13:30 Ondansetron 4 Mg/2 Ml Vial IVP 4 mg Q6HR PRN Administration Nausea And Vomiting Pantoprazole Sodium 40 mg 06/25/24 21:00 06/25/24 20:06 Pantoprazole 40 Mg Tablet PO 40 mg HS [facility] Administration Rivaroxaban 20 mg 06/27/24 09:00 Rivaroxaban 20 Mg Tab PO DAILY [facility] Protocol Intake and Output 06/26/24 06/26/24 06/26/24 06:59 14:59 22:59 Intake Total 7770.866 6224.375 151.217 Output Total 645 1035 30 Balance 530.232 2566.375 121.217 Intake: IV 1600 300 D5-0.45% NaCl with KCl 1200 300 20Meq/l 1,000 ml @ 150 mls/hr IV .Q6H40M [facility] Rx# :[id number] Magnesium Sulfate-D5w Pmx 200 1 gm In Dextrose/Water 1 100ml.bag @ 100 mls/hr IVPB Q1H [facility] Rx#: [id number] Potassium Chloride 10 meq 200 In Water For Injection 1 100ml.bag @ 100 mls/hr IVPB Q1H [facility] Rx#: [id number] Intake, IV Titration 13.718 1024.375 151.217 Amount Ampicillin-Sulbactam 3 gm 100 In Sodium Chloride 0.9% 100 ml @ 200 mls/hr IVPB Q6HR [facility] Rx#:[id number] D5-0.45% NaCl with KCl 900 150 20Meq/l 1,000 ml @ 150 mls/hr IV .Q6H40M [facility] Rx# :[id number] Insulin Regular 100 unit 13.718 24.375 1.217 In Sodium Chloride 0.9% 100 ml @ 0.1 UNITS/KG/HR 6.872 mls/hr IV .[id number] [facility] Rx#:[id number] Oral 1200 Output: Urine 645 1035 30 Other: Voiding Method Indwelling Catheter Indwelling Catheter Weight 70.3 kg 70.3 kg Patient Weight 06/27/24 06:59 Weight 70.3 kg 06/26/24 05:47 06/26/24 12:58
[2024-06-26 16:00] LABS: Glucose,Whole Blood 253 mg/dL (70-110)
[2024-06-26] MEDS: traMADol 50 MG TAB PO PRN (16:15)
[2024-06-26 16:58] LABS: Glucose,Whole Blood 267 mg/dL (70-110)
[2024-06-26 17:45] LABS: ALT 165 U/L (4-34); African American GFR (CKD) >90 (>60 ml/min/1.73 sqM); Albumin 2.8 g/dL (3.5-5.0); Anion Gap 10 mmol/L; Blood Urea Nitrogen 14 mg/dL (7-17); Carbon Dioxide 11 mmol/L (22-30); Chloride 111 mmol/L (98-107); Glucose 264 mg/dL (74-99); Non-African American GFR(CKD) >90 (>60 ml/min/1.73 sqM); Sodium 132 mmol/L (137-145); Total Bilirubin 1.7 mg/dL (0.2-1.3)
[2024-06-26 17:56] LABS: AST 305 U/L (14-36); Alkaline Phosphatase 194 U/L (38-126); Potassium 4.6 mmol/L (3.5-5.1)
[2024-06-26 18:11] LABS: Glucose,Whole Blood 262 mg/dL (70-110)
[2024-06-26 19:04] LABS: Glucose,Whole Blood 243 mg/dL (70-110)
--- NOTE | 2024-06-26 20:29 | US ---
EXAMINATION TYPE: US pelvis complete transvag DATE OF EXAM: 06/26/2024 COMPARISON: CT today CLINICAL INDICATION: Female, 44 years old with history of rlq pain/free fluid in pelvis; Patient stat es RLQ pain. FF in pelvis seen on CT. PT in ICU. TECHNIQUE: Transvaginal (TV) and Transabdominal (TA) . Transabdominal grayscale sonographic images of the pelvis were acquired. Transvaginal sonographic im ages were medically necessary to better assess the following anatomy: Uterus Doppler imaging: Not performed. FINDINGS: EXAM MEASUREMENTS: Uterus: 8.7 x 4.1 x 4.2 cm Endometrial Stripe: 0.6 cm Right Ovary: Unable to visualize cm Left Ovary: Unable to visualize cm Bowel gas limits evaluation of the ovaries. Limited due to overlying bowel gas and patient positioning 1. Uterus: Anteverted Appears slightly heterogeneous 2. Endometrium: wnl 3. Right Ovary: Obscured by overlying bowel gas 4. Left Ovary: Obscured by overlying bowel gas 5. Bilateral Adnexa: WNL 6. Posterior cul-de-sac: There is a 2.9 x 1.6 x 3.7cm collection of free fluid seen IMPRESSION: 1. Some soft tissue fluid and pelvis otherwise no evidence for acute abdominal process. 2. Nonvisualization the ovaries secondary to bowel gas. [facility], , 06/26/2024 8:26 PM
[2024-06-26 21:08] LABS: Glucose,Whole Blood 130 mg/dL (70-110)
--- NOTE | 2024-06-26 22:00 | XR ---
EXAMINATION TYPE: XR chest w decubitus 3 views DATE OF EXAM: 06/26/2024 8:51 PM COMPARISON: Chest radiographs from 06/25/2024., CT same day. CLINICAL INDICATION: Female, 44 years old with history of free air TECHNIQUE: XR chest w decubitus 3 views Frontal and lateral views of the chest. FINDINGS: Lungs/Pleura: There is no evidence of pleural effusion, focal consolidation, or pneumothorax. Pulmonary vascularity: Unremarkable. Heart/mediastinum: Cardiomediastinal silhouette is unremarkable. Musculoskeletal: No acute osseous pathology. Other findings: Nongaseous dilation of bowel in the upper abdomen. IMPRESSION: 1. No evidence for free air. Free fluid on CT is not as well appreciated. 2. Gaseous dilation of bowel throughout the abdomen as seen on same day CT. 3. No acute cardiopulmonary disease/process. [facility], , 06/26/2024 9:57 PM
[2024-06-26 22:05] LABS: Glucose,Whole Blood 138 mg/dL (70-110)
[2024-06-26 23:01] LABS: Glucose,Whole Blood 163 mg/dL (70-110)
[2024-06-27 00:12] LABS: Glucose,Whole Blood 184 mg/dL (70-110)
[2024-06-27 01:08] LABS: Glucose,Whole Blood 203 mg/dL (70-110)
[2024-06-27 01:52] LABS: Glucose,Whole Blood 229 mg/dL (70-110)
[2024-06-27 03:08] LABS: Glucose,Whole Blood 236 mg/dL (70-110)
[2024-06-27 04:11] LABS: Glucose,Whole Blood 239 mg/dL (70-110)
[2024-06-27 05:13] LABS: Glucose,Whole Blood 251 mg/dL (70-110)
[2024-06-27 05:54] LABS: HCT 33.4 % (34.0-46.0); HGB 10.9 gm/dL (11.4-16.0); MCH 27.1 pg (25.0-35.0); MCHC 32.6 g/dL (31.0-37.0); MCV 83.3 fL (80.0-100.0); Mean Platelet Volume 10.4; Platelet Count 136 k/uL (150-450); RDW 14.7 % (11.5-15.5); WBC 21.3 k/uL (3.8-10.6)
[2024-06-27 06:13] LABS: ALT 150 U/L (4-34); AST 164 U/L (14-36); African American GFR (CKD) >90 (>60 ml/min/1.73 sqM); Albumin 2.7 g/dL (3.5-5.0); Alkaline Phosphatase 212 U/L (38-126); Anion Gap 3 mmol/L; Blood Urea Nitrogen 12 mg/dL (7-17); Calcium 7.8 mg/dL (8.4-10.2); Carbon Dioxide 20 mmol/L (22-30); Chloride 110 mmol/L (98-107); Glucose 239 mg/dL (74-99); Non-African American GFR(CKD) >90 (>60 ml/min/1.73 sqM); Potassium 4.3 mmol/L (3.5-5.1); Sodium 133 mmol/L (137-145); Total Bilirubin 1.8 mg/dL (0.2-1.3); Total Protein 5.9 g/dL (6.3-8.2)
[2024-06-27 06:14] LABS: Magnesium 1.8 mg/dL (1.6-2.3); Phosphorus 2.3 mg/dL (2.5-4.5)
[2024-06-27] MEDS: MAGNESIUM SULFATE-D5W PMX 1 GM in DEXTROSE/WATER 1 100ML.BAG IVPB ONE (07:00)
[2024-06-27] MEDS: INSULIN NPH 100 UNIT/ML 10 ML VIAL SQ ONE (07:58)
[2024-06-27] MEDS: INSULIN DETEMIR (LEVEMIR) 100 UNIT/ML SYR SQ SCH (08:03)
[2024-06-27 08:04] LABS: Glucose,Whole Blood 293 mg/dL (70-110)
--- NOTE | 2024-06-27 08:05 | PN ---
PROGRESS NOTE Metabolic encephalopathy, secondary to DKA, sepsis ruled in. MMODL / IJN: [id number] /
[2024-06-27] MEDS: INSULIN ASPART (NovoLOG) 100 UNIT/ML VIAL SQ SCH ×2 (08:08→08:09)
[2024-06-27] MEDS: RIVAROXABAN 20 MG TAB PO SCH (09:29)
[2024-06-27] MEDS: POTAS-SOD-PHOS 280-160-250 MG 1 EACH PACKET PO ONE (09:29)
--- NOTE | 2024-06-27 09:44 | P.CONS ---
History of Present Illness - Reason for Consult Consult date: 06/26/24 Leukocytosis Requesting physician: Rolando Jacobsen - Chief Complaint Abdominal pain x few days - History of Present Illness Patient is a 44-year-old female with a past medical history significant for diabetes mellitus atrial fibrillation hypothyroidism in this pat ient has been brought into the hospital for evaluation of mental status changes, EMS found the patient to be hyperglycemic and no clear history of any recent trauma or illness patient on presentation to the hospital was hypothermic with a temperature of 93.9 F subsequently did have a temperature of 100 F patient was tachycardic on admission and also have elevated white count of 25.9 thousand cre atinine was normal liver enzymes are elevated amylase lipase was normal urine has been negative urine toxin was negative influenza RSV COVID testing was negative patient did have a chest x-ray no acute cardiopulmonary disease process infectious he was consulted because of her elevated white count patient currently denies having any headache or URI symptoms denies any chest pain shortness with occasional cough patient complaining of pain mostly in the right upper abdominal area mostly dull aching to sharp moderate intensity without any radiation and is becoming a feeling nauseated denies any diarrhea constipation and no urinary symptoms Review of Systems Positive point and negatives has been mentioned in the HPI, complete review of systems was performed and all other systems are negative Past Medical History Past Medical History: Atrial Fibrillation, Diabetes Mellitus, Thyroid Disorder History of Any Multi-Drug Resistant Organisms: None Reported Past Surgical History: No Surgical Hx Reported Past Anesthesia/Blood Transfusion Reactions: No Reported Reaction Past Psychological History: No Psychological Hx Reported Smoking Status: Never smoker Past Alcohol Use History: None Reported Past Drug Use History: None Reported - Past Family History Mother Family Medical History: Hypertension Father Family Medical History: Diabetes Mellitus Medications and Allergies Home Medications Medication Instructions Recorded Confirmed Type Acetaminophen Tab [Tylenol] 500 - 1,000 mg PO Q6HR PRN 10/23/20 06/25/24 History Aspirin EC [Ecotrin Low Dose] 81 mg PO DAILY 06/25/24 06/25/24 History Dapagliflozin Propanediol [Farxiga] 5 mg PO DAILY 06/25/24 06/25/24 History Dextroamphetamine/Amphetamine 20 mg PO BID@0900,1400 06/25/24 06/25/24 History [Adderall] Fexofenadine HCl [Jyotsna Allergy] 180 mg PO DAILY 06/25/24 06/25/24 History INSULIN LISPRO (HumaLOG) [humaLOG] 10 units SQ AC-TID 06/25/24 06/25/24 History Insulin Glargine,Hum.rec.anlog 20 units SQ DAILY 06/25/24 06/25/24 History [Lantus Solostar Pen] Pantoprazole [Protonix] 40 mg PO HS 06/25/24 06/25/24 History Rivaroxaban [Xarelto] 10 mg PO DAILY 06/25/24 06/25/24 History Tirzepatide [Mounjaro] 5 mg SQ Q7D 06/25/24 06/25/24 History atenoloL [Tenormin] 50 mg PO BID 06/25/24 06/25/24 History methIMAzole [Tapazole] 10 mg PO BID 06/25/24 06/25/24 History Allergies Allergy/AdvReac Type Severity Reaction Status Date / Time meperidine [From Demerol] Allergy syncope Verified 06/25/24 10:46 moxifloxacin [From Avelox] Allergy palpitation Verified 06/25/24 10:46 s Physical Exam Vitals: Vital Signs Temp Pulse Resp BP Pulse Ox 06/26/24 08:33 96 06/26/24 08:23 97 06/26/24 08:22 89 06/26/24 07:00 87 25 H 91/67 99 06/26/24 06:00 87 25 H 92/70 98 06/26/24 05:00 87 23 93/68 99 06/26/24 04:00 99.5 F 83 20 85/71 99 06/26/24 03:00 87 22 85/71 99 06/26/24 02:00 93 24 85/62 98 06/26/24 01:00 90 24 81/60 98 06/26/24 00:07 89 22 99 06/26/24 00:00 99.5 F 91 23 82/64 98 06/25/24 23:00 94 24 82/60 98 06/25/24 22:00 103 H 24 95/66 98 06/25/24 21:00 113 H 16 131/69 97 06/25/24 20:56 114 H 06/25/24 20:46 117 H 06/25/24 20:30 118 H 21 99 06/25/24 20:00 100.0 F H 146 H 23 123/70 98 06/25/24 19:30 144 H 23 97 06/25/24 19:00 141 H 24 127/74 98 06/25/24 18:45 146 H 25 H 98 06/25/24 18:30 141 H 25 H 98 06/25/24 18:15 141 H 19 127/74 99 06/25/24 18:00 146 H 23 98 06/25/24 17:45 146 H 28 H 97 06/25/24 17:30 149 H 29 H 98 06/25/24 17:15 149 H 25 H 97 06/25/24 17:00 152 H 31 H 107/64 97 06/25/24 16:45 152 H 28 H 107/64 98 06/25/24 16:30 156 H 32 H 113/62 98 06/25/24 16:15 170 H 31 H 113/62 98 06/25/24 16:00 98.9 F 160 H 30 H 120/63 98 06/25/24 15:45 163 H 25 H 120/63 98 06/25/24 15:30 161 H 29 H 123/75 98 06/25/24 15:15 163 H 26 H 123/75 99 06/25/24 15:00 165 H 15 127/67 93 L 06/25/24 14:45 165 H 29 H 127/67 100 06/25/24 14:30 163 H 27 H 132/74 100 06/25/24 14:15 163 H 31 H 132/74 100 06/25/24 14:00 165 H 23 125/81 100 06/25/24 13:45 33 H 125/81 100 06/25/24 13:30 158 H 21 128/70 100 06/25/24 13:15 158 H 30 H 128/70 100 06/25/24 13:02 158 H 18 100 06/25/24 12:45 168 H 30 H 122/71 99 06/25/24 12:30 96.1 F L 168 H 26 H 127/64 100 06/25/24 12:15 161 H 26 H 122/69 100 06/25/24 12:00 98.2 F 160 H 22 126/68 99 06/25/24 11:47 94.8 F L 156 H 28 H 126/68 100 06/25/24 11:45 154 H 27 H 126/68 100 06/25/24 11:30 152 H 26 H 124/61 99 06/25/24 11:15 151 H 30 H 116/62 98 06/25/24 11:12 94.1 F L 06/25/24 11:00 147 H 31 H 118/51 100 06/25/24 10:55 93.7 F L 151 H 44 H 118/51 94 L 06/25/24 10:30 82/38 06/25/24 10:19 82/38 06/25/24 10:15 146 H 30 H 87/50 100 Intake and Output 06/25/24 06/26/24 06/26/24 22:59 06:59 14:59 Intake Total 2683.037 1613.718 169.354 Output Total 2715 645 75 Balance -31.963 968.718 94.354 Intake: IV 2600 1600 150 Cefepime 2 gm In Sodium 100 Chloride 0.9% 100 ml @ 25 mls/hr IVPB Q12HR [facility] Rx #:[id number] D5-0.45% NaCl with KCl 1050 1200 150 20Meq/l 1,000 ml @ 150 mls/hr IV .Q6H40M [facility] Rx# :[id number] Magnesium Sulfate-D5w Pmx 200 1 gm In Dextrose/Water 1 100ml.bag @ 100 mls/hr IVPB Q1H [facility] Rx#: [id number] Potassium Chloride 10 meq 200 In Water For Injection 1 100ml.bag @ 100 mls/hr IVPB Q1H [facility] Rx#: [id number] Sodium Chloride 0.9% 1, 1200 000 ml @ 200 mls/hr IV . Q5H [facility] Rx#:[id number] Sodium Phosphate 60 mmol 250 In Dextrose 5% in Water 250 ml @ 45 mls/hr IVPB ONCE ONE Rx#:[id number] Intake, IV Titration 83.037 13.718 19.354 Amount Insulin Regular 100 unit 83.037 13.718 19.354 In Sodium Chloride 0.9% 100 ml @ 0.1 UNITS/KG/HR 6.872 mls/hr IV .[id number] [facility] Rx#:[id number] Output: Urine 2715 645 75 Other: Voiding Method Indwelling Catheter Indwelling Catheter Weight 70.3 kg GENERAL DESCRIPTION: Middle-aged female lying in bed, no distress. No tachypnea or accessory muscle of respiration use. HEENT: Shows Pallor , no scleral icterus. Oral mucous membrane is dry. No pharyngeal erythema or thrush NECK: Trachea central, no thyromegaly. LUNGS: Unlabored breathing. Clear to auscultation anteriorly. No wheeze or crackle. HEART: S1, S2, regular rate and rhythm. No loud murmur ABDOMEN: Soft, right-sided abdominal tenderness EXTREMITIES: No edema of feet. SKIN: No rash, no masses palpable. NEUROLOGICAL: The patient is awake, alert, oriented x3, mood and affect normal. Results CBC & Chem 7: 06/27/24 05:32 06/27/24 05:32 Labs: Abnormal Lab Results - Last 24 Hours (Table) 06/25/24 06/25/24 06/25/24 Range/Units 09:37 09:37 09:37 WBC 25.9 H (3.8-10.6) k/uL MCHC 28.8 L (31.0-37.0) g/dL Neutrophils # 23.5 H (1.3-7.7) k/uL Monocytes # (0-1.0) k/uL PT 14.2 H (10.0-12.5) sec INR 1.4 H (<1.2) APTT 32.4 H (22.0-30.0) sec Sodium (137-145) mmol/L Potassium (3.5-5.1) mmol/L Chloride (98-107) mmol/L Carbon Dioxide (22-30) mmol/L Creatinine (0.52-1.04) mg/dL Glucose (74-99) mg/dL POC Glucose (mg/dL) (70-110) mg/dL Plasma Lactic Acid Abelardo (0.7-2.0) mmol/L Calcium (8.4-10.2) mg/dL Phosphorus (2.5-4.5) mg/dL Magnesium (1.6-2.3) mg/dL Total Bilirubin (0.2-1.3) mg/dL Delta Bilirubin (0.0-0.2) mg/dL AST (14-36) U/L ALT (4-34) U/L Alkaline Phosphatase (38-126) U/L Troponin I (0.000-0.034) ng/mL Total Protein (6.3-8.2) g/dL Albumin (3.5-5.0) g/dL TSH (0.465-4.680) mIU/L Free T4 (0.78-2.19) ng/dL Free T3 pg/mL (2.30-4.20) pg/mL Urine Glucose (UA) 4+ H (Negative) Urine Ketones 1+ H (Negative) U Creatinine Drug Scrn (>=20.0) mg/dL 06/25/24 06/25/24 06/25/24 Range/Units 09:37 09:37 09:37 WBC (3.8-10.6) k/uL MCHC (31.0-37.0) g/dL Neutrophils # (1.3-7.7) k/uL Monocytes # (0-1.0) k/uL PT (10.0-12.5) sec INR (<1.2) APTT (22.0-30.0) sec Sodium 136 L (137-145) mmol/L Potassium 5.6 H (3.5-5.1) mmol/L Chloride (98-107) mmol/L Carbon Dioxide <5 L* (22-30) mmol/L Creatinine 1.46 H (0.52-1.04) mg/dL Glucose 624 H* (74-99) mg/dL POC Glucose (mg/dL) (70-110) mg/dL Plasma Lactic Acid Abelardo 22.0 H* (0.7-2.0) mmol/L Calcium (8.4-10.2) mg/dL Phosphorus (2.5-4.5) mg/dL Magnesium 2.7 H (1.6-2.3) mg/dL Total Bilirubin (0.2-1.3) mg/dL Delta Bilirubin (0.0-0.2) mg/dL AST 106 H (14-36) U/L ALT 68 H (4-34) U/L Alkaline Phosphatase 299 H (38-126) U/L Troponin I 0.082 H* (0.000-0.034) ng/mL Total Protein (6.3-8.2) g/dL Albumin (3.5-5.0) g/dL TSH (0.465-4.680) mIU/L Free T4 (0.78-2.19) ng/dL Free T3 pg/mL (2.30-4.20) pg/mL Urine Glucose (UA) (Negative) Urine Ketones (Negative) U Creatinine Drug Scrn (>=20.0) mg/dL 06/25/24 06/25/24 06/25/24 Range/Units 10:58 11:47 11:54 WBC (3.8-10.6) k/uL MCHC (31.0-37.0) g/dL Neutrophils # (1.3-7.7) k/uL Monocytes # (0-1.0) k/uL PT (10.0-12.5) sec INR (<1.2) APTT (22.0-30.0) sec Sodium (137-145) mmol/L Potassium (3.5-5.1) mmol/L Chloride (98-107) mmol/L Carbon Dioxide (22-30) mmol/L Creatinine (0.52-1.04) mg/dL Glucose (74-99) mg/dL POC Glucose (mg/dL) 462 H (70-110) mg/dL Plasma Lactic Acid Abelardo (0.7-2.0) mmol/L Calcium (8.4-10.2) mg/dL Phosphorus 6.9 H (2.5-4.5) mg/dL Magnesium (1.6-2.3) mg/dL Total Bilirubin (0.2-1.3) mg/dL Delta Bilirubin (0.0-0.2) mg/dL AST (14-36) U/L ALT (4-34) U/L Alkaline Phosphatase (38-126) U/L Troponin I (0.000-0.034) ng/mL Total Protein (6.3-8.2) g/dL Albumin (3.5-5.0) g/dL TSH (0.465-4.680) mIU/L Free T4 (0.78-2.19) ng/dL Free T3 pg/mL (2.30-4.20) pg/mL Urine Glucose (UA) (Negative) Urine Ketones (Negative) U Creatinine Drug Scrn 17.8 L (>=20.0) mg/dL 06/25/24 06/25/24 06/25/24 Range/Units 11:54 11:54 12:07 WBC (3.8-10.6) k/uL MCHC (31.0-37.0) g/dL Neutrophils # (1.3-7.7) k/uL Monocytes # (0-1.0) k/uL PT (10.0-12.5) sec INR (<1.2) APTT (22.0-30.0) sec Sodium (137-145) mmol/L Potassium (3.5-5.1) mmol/L Chloride 113 H (98-107) mmol/L Carbon Dioxide <5 L* (22-30) mmol/L Creatinine (0.52-1.04) mg/dL Glucose 382 H (74-99) mg/dL POC Glucose (mg/dL) 348 H (70-110) mg/dL Plasma Lactic Acid Abelardo (0.7-2.0) mmol/L Calcium (8.4-10.2) mg/dL Phosphorus (2.5-4.5) mg/dL Magnesium (1.6-2.3) mg/dL Total Bilirubin (0.2-1.3) mg/dL Delta Bilirubin (0.0-0.2) mg/dL AST (14-36) U/L ALT (4-34) U/L Alkaline Phosphatase (38-126) U/L Troponin I (0.000-0.034) ng/mL Total Protein (6.3-8.2) g/dL Albumin (3.5-5.0) g/dL TSH (0.465-4.680) mIU/L Free T4 5.48 H (0.78-2.19) ng/dL Free T3 pg/mL >27.00 H (2.30-4.20) pg/mL Urine Glucose (UA) (Negative) Urine Ketones (Negative) U Creatinine Drug Scrn (>=20.0) mg/dL 06/25/24 06/25/24 06/25/24 Range/Units 13:00 15:24 15:28 WBC (3.8-10.6) k/uL MCHC (31.0-37.0) g/dL Neutrophils # (1.3-7.7) k/uL Monocytes # (0-1.0) k/uL PT (10.0-12.5) sec INR (<1.2) APTT (22.0-30.0) sec Sodium (137-145) mmol/L Potassium (3.5-5.1) mmol/L Chloride 119 H (98-107) mmol/L Carbon Dioxide 8 L* (22-30) mmol/L Creatinine (0.52-1.04) mg/dL Glucose 194 H (74-99) mg/dL POC Glucose (mg/dL) 306 H 187 H (70-110) mg/dL Plasma Lactic Acid Abelardo (0.7-2.0) mmol/L Calcium (8.4-10.2) mg/dL Phosphorus 1.0 L* (2.5-4.5) mg/dL Magnesium (1.6-2.3) mg/dL Total Bilirubin (0.2-1.3) mg/dL Delta Bilirubin (0.0-0.2) mg/dL AST (14-36) U/L ALT (4-34) U/L Alkaline Phosphatase (38-126) U/L Troponin I (0.000-0.034) ng/mL Total Protein (6.3-8.2) g/dL Albumin (3.5-5.0) g/dL TSH (0.465-4.680) mIU/L Free T4 (0.78-2.19) ng/dL Free T3 pg/mL (2.30-4.20) pg/mL Urine Glucose (UA) (Negative) Urine Ketones (Negative) U Creatinine Drug Scrn (>=20.0) mg/dL 06/25/24 06/25/24 06/25/24 Range/Units 15:28 15:35 16:52 WBC (3.8-10.6) k/uL MCHC (31.0-37.0) g/dL Neutrophils # (1.3-7.7) k/uL Monocytes # (0-1.0) k/uL PT (10.0-12.5) sec INR (<1.2) APTT (22.0-30.0) sec Sodium (137-145) mmol/L Potassium (3.5-5.1) mmol/L Chloride (98-107) mmol/L Carbon Dioxide (22-30) mmol/L Creatinine (0.52-1.04) mg/dL Glucose (74-99) mg/dL POC Glucose (mg/dL) 180 H (70-110) mg/dL Plasma Lactic Acid Abelardo 4.2 H* (0.7-2.0) mmol/L Calcium (8.4-10.2) mg/dL Phosphorus (2.5-4.5) mg/dL Magnesium (1.6-2.3) mg/dL Total Bilirubin (0.2-1.3) mg/dL Delta Bilirubin (0.0-0.2) mg/dL AST (14-36) U/L ALT (4-34) U/L Alkaline Phosphatase (38-126) U/L Troponin I 0.647 H* (0.000-0.034) ng/mL Total Protein (6.3-8.2) g/dL Albumin (3.5-5.0) g/dL TSH (0.465-4.680) mIU/L Free T4 (0.78-2.19) ng/dL Free T3 pg/mL (2.30-4.20) pg/mL Urine Glucose (UA) (Negative) Urine Ketones (Negative) U Creatinine Drug Scrn (>=20.0) mg/dL 06/25/24 06/25/24 06/25/24 Range/Units 18:18 18:23 18:42 WBC (3.8-10.6) k/uL MCHC (31.0-37.0) g/dL Neutrophils # (1.3-7.7) k/uL Monocytes # (0-1.0) k/uL PT (10.0-12.5) sec INR (<1.2) APTT (22.0-30.0) sec Sodium (137-145) mmol/L Potassium (3.5-5.1) mmol/L Chloride (98-107) mmol/L Carbon Dioxide (22-30) mmol/L Creatinine (0.52-1.04) mg/dL Glucose (74-99) mg/dL POC Glucose (mg/dL) 170 H 162 H (70-110) mg/dL Plasma Lactic Acid Abelardo 2.6 H* (0.7-2.0) mmol/L Calcium (8.4-10.2) mg/dL Phosphorus (2.5-4.5) mg/dL Magnesium (1.6-2.3) mg/dL Total Bilirubin (0.2-1.3) mg/dL Delta Bilirubin (0.0-0.2) mg/dL AST (14-36) U/L ALT (4-34) U/L Alkaline Phosphatase (38-126) U/L Troponin I (0.000-0.034) ng/mL Total Protein (6.3-8.2) g/dL Albumin (3.5-5.0) g/dL TSH (0.465-4.680) mIU/L Free T4 (0.78-2.19) ng/dL Free T3 pg/mL (2.30-4.20) pg/mL Urine Glucose (UA) (Negative) Urine Ketones (Negative) U Creatinine Drug Scrn (>=20.0) mg/dL 06/25/24 06/25/24 06/25/24 Range/Units 20:11 20:59 21:47 WBC (3.8-10.6) k/uL MCHC (31.0-37.0) g/dL Neutrophils # (1.3-7.7) k/uL Monocytes # (0-1.0) k/uL PT (10.0-12.5) sec INR (<1.2) APTT (22.0-30.0) sec Sodium 134 L (137-145) mmol/L Potassium (3.5-5.1) mmol/L Chloride 112 H (98-107) mmol/L Carbon Dioxide 13 L (22-30) mmol/L Creatinine (0.52-1.04) mg/dL Glucose 147 H (74-99) mg/dL POC Glucose (mg/dL) 153 H 163 H (70-110) mg/dL Plasma Lactic Acid Abelardo (0.7-2.0) mmol/L Calcium (8.4-10.2) mg/dL Phosphorus (2.5-4.5) mg/dL Magnesium (1.6-2.3) mg/dL Total Bilirubin (0.2-1.3) mg/dL Delta Bilirubin (0.0-0.2) mg/dL AST 321 H (14-36) U/L ALT 132 H (4-34) U/L Alkaline Phosphatase 181 H (38-126) U/L Troponin I (0.000-0.034) ng/mL Total Protein 6.1 L (6.3-8.2) g/dL Albumin 2.9 L (3.5-5.0) g/dL TSH (0.465-4.680) mIU/L Free T4 (0.78-2.19) ng/dL Free T3 pg/mL (2.30-4.20) pg/mL Urine Glucose (UA) (Negative) Urine Ketones (Negative) U Creatinine Drug Scrn (>=20.0) mg/dL 06/25/24 06/25/24 06/25/24 Range/Units 21:51 22:57 23:53 WBC (3.8-10.6) k/uL MCHC (31.0-37.0) g/dL Neutrophils # (1.3-7.7) k/uL Monocytes # (0-1.0) k/uL PT (10.0-12.5) sec INR (<1.2) APTT (22.0-30.0) sec Sodium (137-145) mmol/L Potassium (3.5-5.1) mmol/L Chloride (98-107) mmol/L Carbon Dioxide (22-30) mmol/L Creatinine (0.52-1.04) mg/dL Glucose (74-99) mg/dL POC Glucose (mg/dL) 144 H 130 H 130 H (70-110) mg/dL Plasma Lactic Acid Abelardo (0.7-2.0) mmol/L Calcium (8.4-10.2) mg/dL Phosphorus (2.5-4.5) mg/dL Magnesium (1.6-2.3) mg/dL Total Bilirubin (0.2-1.3) mg/dL Delta Bilirubin (0.0-0.2) mg/dL AST (14-36) U/L ALT (4-34) U/L Alkaline Phosphatase (38-126) U/L Troponin I (0.000-0.034) ng/mL Total Protein (6.3-8.2) g/dL Albumin (3.5-5.0) g/dL TSH (0.465-4.680) mIU/L Free T4 (0.78-2.19) ng/dL Free T3 pg/mL (2.30-4.20) pg/mL Urine Glucose (UA) (Negative) Urine Ketones (Negative) U Creatinine Drug Scrn (>=20.0) mg/dL 06/26/24 06/26/24 06/26/24 Range/Units 01:03 02:00 03:01 WBC (3.8-10.6) k/uL MCHC (31.0-37.0) g/dL Neutrophils # (1.3-7.7) k/uL Monocytes # (0-1.0) k/uL PT (10.0-12.5) sec INR (<1.2) APTT (22.0-30.0) sec Sodium 131 L (137-145) mmol/L Potassium (3.5-5.1) mmol/L Chloride 111 H (98-107) mmol/L Carbon Dioxide 11 L (22-30) mmol/L Creatinine 0.51 L (0.52-1.04) mg/dL Glucose 236 H (74-99) mg/dL POC Glucose (mg/dL) 156 H 190 H (70-110) mg/dL Plasma Lactic Acid Abelardo (0.7-2.0) mmol/L Calcium 7.1 L (8.4-10.2) mg/dL Phosphorus (2.5-4.5) mg/dL Magnesium (1.6-2.3) mg/dL Total Bilirubin 1.5 H (0.2-1.3) mg/dL Delta Bilirubin (0.0-0.2) mg/dL AST 341 H (14-36) U/L ALT 154 H (4-34) U/L Alkaline Phosphatase 194 H (38-126) U/L Troponin I (0.000-0.034) ng/mL Total Protein 6.0 L (6.3-8.2) g/dL Albumin 2.9 L (3.5-5.0) g/dL TSH (0.465-4.680) mIU/L Free T4 (0.78-2.19) ng/dL Free T3 pg/mL (2.30-4.20) pg/mL Urine Glucose (UA) (Negative) Urine Ketones (Negative) U Creatinine Drug Scrn (>=20.0) mg/dL 06/26/24 06/26/24 06/26/24 Range/Units 03:01 03:24 04:09 WBC (3.8-10.6) k/uL MCHC (31.0-37.0) g/dL Neutrophils # (1.3-7.7) k/uL Monocytes # (0-1.0) k/uL PT (10.0-12.5) sec INR (<1.2) APTT (22.0-30.0) sec Sodium (137-145) mmol/L Potassium (3.5-5.1) mmol/L Chloride (98-107) mmol/L Carbon Dioxide (22-30) mmol/L Creatinine (0.52-1.04) mg/dL Glucose (74-99) mg/dL POC Glucose (mg/dL) 265 H 252 H (70-110) mg/dL Plasma Lactic Acid Abelardo (0.7-2.0) mmol/L Calcium (8.4-10.2) mg/dL Phosphorus 7.5 H (2.5-4.5) mg/dL Magnesium 1.5 L (1.6-2.3) mg/dL Total Bilirubin (0.2-1.3) mg/dL Delta Bilirubin (0.0-0.2) mg/dL AST (14-36) U/L ALT (4-34) U/L Alkaline Phosphatase (38-126) U/L Troponin I (0.000-0.034) ng/mL Total Protein (6.3-8.2) g/dL Albumin (3.5-5.0) g/dL TSH (0.465-4.680) mIU/L Free T4 (0.78-2.19) ng/dL Free T3 pg/mL (2.30-4.20) pg/mL Urine Glucose (UA) (Negative) Urine Ketones (Negative) U Creatinine Drug Scrn (>=20.0) mg/dL 06/26/24 06/26/24 06/26/24 Range/Units 05:16 05:47 05:47 WBC 27.0 H (3.8-10.6) k/uL MCHC (31.0-37.0) g/dL Neutrophils # 24.3 H (1.3-7.7) k/uL Monocytes # 1.2 H (0-1.0) k/uL PT (10.0-12.5) sec INR (<1.2) APTT (22.0-30.0) sec Sodium (137-145) mmol/L Potassium (3.5-5.1) mmol/L Chloride (98-107) mmol/L Carbon Dioxide (22-30) mmol/L Creatinine (0.52-1.04) mg/dL Glucose (74-99) mg/dL POC Glucose (mg/dL) 244 H (70-110) mg/dL Plasma Lactic Acid Abelardo (0.7-2.0) mmol/L Calcium (8.4-10.2) mg/dL Phosphorus (2.5-4.5) mg/dL Magnesium (1.6-2.3) mg/dL Total Bilirubin 1.4 H (0.2-1.3) mg/dL Delta Bilirubin 0.5 H (0.0-0.2) mg/dL AST 364 H (14-36) U/L ALT 164 H (4-34) U/L Alkaline Phosphatase 216 H (38-126) U/L Troponin I (0.000-0.034) ng/mL Total Protein 5.9 L (6.3-8.2) g/dL Albumin 2.9 L (3.5-5.0) g/dL TSH (0.465-4.680) mIU/L Free T4 (0.78-2.19) ng/dL Free T3 pg/mL (2.30-4.20) pg/mL Urine Glucose (UA) (Negative) Urine Ketones (Negative) U Creatinine Drug Scrn (>=20.0) mg/dL 06/26/24 06/26/24 06/26/24 Range/Units 05:47 06:13 07:01 WBC (3.8-10.6) k/uL MCHC (31.0-37.0) g/dL Neutrophils # (1.3-7.7) k/uL Monocytes # (0-1.0) k/uL PT (10.0-12.5) sec INR (<1.2) APTT (22.0-30.0) sec Sodium 130 L (137-145) mmol/L Potassium (3.5-5.1) mmol/L Chloride 109 H (98-107) mmol/L Carbon Dioxide 14 L (22-30) mmol/L Creatinine (0.52-1.04) mg/dL Glucose 255 H (74-99) mg/dL POC Glucose (mg/dL) 235 H 229 H (70-110) mg/dL Plasma Lactic Acid Abelardo (0.7-2.0) mmol/L Calcium 7.3 L (8.4-10.2) mg/dL Phosphorus 5.4 H (2.5-4.5) mg/dL Magnesium (1.6-2.3) mg/dL Total Bilirubin 1.4 H (0.2-1.3) mg/dL Delta Bilirubin (0.0-0.2) mg/dL AST 364 H (14-36) U/L ALT 164 H (4-34) U/L Alkaline Phosphatase 221 H (38-126) U/L Troponin I (0.000-0.034) ng/mL Total Protein 6.0 L (6.3-8.2) g/dL Albumin 2.9 L (3.5-5.0) g/dL TSH <0.015 L (0.465-4.680) mIU/L Free T4 (0.78-2.19) ng/dL Free T3 pg/mL (2.30-4.20) pg/mL Urine Glucose (UA) (Negative) Urine Ketones (Negative) U Creatinine Drug Scrn (>=20.0) mg/dL 06/26/24 06/26/24 06/26/24 Range/Units 08:07 09:03 09:20 WBC (3.8-10.6) k/uL MCHC (31.0-37.0) g/dL Neutrophils # (1.3-7.7) k/uL Monocytes # (0-1.0) k/uL PT (10.0-12.5) sec INR (<1.2) APTT (22.0-30.0) sec Sodium 135 L (137-145) mmol/L Potassium (3.5-5.1) mmol/L Chloride 109 H (98-107) mmol/L Carbon Dioxide 17 L (22-30) mmol/L Creatinine 0.48 L (0.52-1.04) mg/dL Glucose 150 H (74-99) mg/dL POC Glucose (mg/dL) 169 H 135 H (70-110) mg/dL Plasma Lactic Acid Abelardo (0.7-2.0) mmol/L Calcium 7.6 L (8.4-10.2) mg/dL Phosphorus (2.5-4.5) mg/dL Magnesium (1.6-2.3) mg/dL Total Bilirubin (0.2-1.3) mg/dL Delta Bilirubin (0.0-0.2) mg/dL AST 357 H (14-36) U/L ALT 170 H (4-34) U/L Alkaline Phosphatase 191 H (38-126) U/L Troponin I (0.000-0.034) ng/mL Total Protein 6.1 L (6.3-8.2) g/dL Albumin 3.0 L (3.5-5.0) g/dL TSH (0.465-4.680) mIU/L Free T4 (0.78-2.19) ng/dL Free T3 pg/mL (2.30-4.20) pg/mL Urine Glucose (UA) (Negative) Urine Ketones (Negative) U Creatinine Drug Scrn (>=20.0) mg/dL Assessment and Plan (1) Sepsis Current Visit: Yes Status: Acute Code(s): A41.9 - SEPSIS, UNSPECIFIED ORGANISM SNOMED Code(s): 16284427 (2) Elevated liver enzymes Current Visit: Yes Status: Acute Code(s): R74.8 - ABNORMAL LEVELS OF OTHER SERUM ENZYMES SNOMED Code(s): 337208854 Plan: 1patient presented to hospital with sepsis in this patient was initially hypothermic subsequently did have a fever also have elevated white count as well as tachycardia meeting criteria for SIRS patient has been complaining of pain to right side abdominal area did have elevated liver enzyme concern for possible cholangitis/cholecystitis to be the likely etiology 2 patient with moxifloxacin allergy 3-we will obtain CT of abdominal pelvis to better define underlying abdominal pathology 4-empirically start the patient Unasyn 3 g every 6 hours We will follow on clinical condition and cultures to further adjust medication if needed Thank you for this consultation we will follow the patient along with you Dictation was produced using [employer] software. please excuse any grammatical, word or spelling errors. Time with Patient: Greater than 30
--- NOTE | 2024-06-27 11:12 | P.PN ---
Subjective Progress Note Date: 06/27/24 This is a 44-year-old female patient was diagnosed having type 1 diabetes and is diagnosed with diabetes approximately a month ago and the patient was receiving a combination of Mounjaro, Farxiga and Lantus insulin 20 units on a daily basis. The family believes that the patient was not taking his insulin although they are not certain. The patient comes into the emergency department with altered mentation and she was in full-blown DKA and at the same time she was severely acidotic with severe lactic acidosis. She was tachycardic and her heart rate was around 150. Initial blood gas showed a pH of 6.9 with a pCO2 of less than 15 and a pO2 of 146 and this was an FiO2 of 21%. Initial blood sugar was 530 and the patient had severe anion gap metabolic acidosis with a serum bicarb of less than 5. The acetone was positive. Lactic acid level was as high as 22. Potassium level was at 5.6. Creatinine was at 1.4. BUN was 16. LFTs are mildly abnormal with an AST of 106, ALT of 68 and alkaline phosphatase of 299. Troponins at 0.08. The white cell count is 25.9 with the most 12.8 and a platelet count of 294. The patient is already received a total of 3 L of IV fluids and the patient is currently on normal saline at 100 cc an hour and insulin drip is running at 7 units an hour. Follow-up blood sugars show some improvement and sugar is currently down to 348. Electrolytes are being monit ored very closely. Mentation remains altered. Remains tachycardic. Hemodynamically stable. Chest x-ray shows no acute abnormalities and the CAT scan of the brain also shows no acute abnormalities. 06/26/2024, the patient is being seen for a follow-up. The patient is feeling better compared to yesterday. The patient this morning is on a D5 half-normal saline at a rate of 100 cc an hour. Insulin drip is still running at 3.7 units an hour. There is improvement in the electrolyte imbalance and the patient's most recent electrolytes show a gap of 7 with a serum bicarb of 14. Potassium is at 4.3. Sodium levels at 130. The blood sugar is currently is at 229.. The patient is less tachycardic. The patient was started on beta-blockers. Overnight the patient was given IV Lopressor and the patient will be started on atenolol today. TSH is suppressed and the patient has history of hype rthyroidism/Graves' disease and Tapazole was restarted. She is awake and alert and communicating. She has received approximately 5 L of IV fluid bolus and the fluid balance is positive. Her cardiac rhythm is sinus and her sinus tachycardia is improved considerably. LFTs are normal and the patient states that she has had abnormal LFTs for a long period of time. No nausea. No emesis. No abdominal pain. No altered mentation. The white cell count remains elevated at 27. No signs of any infection or septicemia and this is likely reactive in nature. The patient remains on room air oxygen. No other significant events overnight. Neurologically, she is awake and alert and communicating. She also states that she has history of alpha-1 antitrypsin disease, MZ phenotype. 06/27/2024, patient seen and evaluated at bedside. Patient states she is feeling much better overall, but still has compliant of diffuse, non-specific abdominal pain. The patient is on D5 half-normal saline at a rate of 50cc/hr. Being transitioned off insulin drip to Levemir SQ 20 units, and insulin sliding scale. Overall improvement with electrolyte imbalance. Most recent electrolytes showed a gap of 3 and a serum bicarb of 20. Potassium at 4.3 Sodium at 133. Blood sugar currently at 239. A1c 9.3. Alpha 1 antitrypsin 137. Amylase and lipase within normal limit. Hepatitis panel negative. Patient is awake, alert, and communicating. Patient denies any nausea or vomiting. No acute events overnight. She is currently on room air. Patient heart rate stabilized after IV Lopressor, patient remains on atenolol. No signs of any infection of septicemia. Gallbladder ultrasound limited, displayed gas and hepatic steatosis. Abdomen/Pelvis CT displayed free fluid layering in the pelvis and around gallbladder, gallbladder not distended and gallbladder wall not thickened. Chest x-ray negative. HIDA scan scheduled today. Transvaginal ultra urine cultures negative. Patient can be downgraded to inpatient floor. Objective - Vital Signs Vital signs: Vital Signs Temp 97.9 F 06/27/24 04:00 Pulse 83 06/27/24 06:00 Resp 19 06/27/24 06:00 BP 139/84 06/27/24 06:00 Pulse Ox 97 06/27/24 05:00 FiO2 Intake & Output 06/26/24 06/26/24 06/27/24 06:59 18:59 06:59 Intake Total 3646.755 3236.973 1929.608 Output Total 1260 1075 1250 Balance 2386.755 2161.973 679.608 Weight 70.3 kg 70.3 kg 71.6 kg Intake: IV 3550 600 1800 Cefepime 2 gm In Sodium 100 Chloride 0.9% 100 ml @ 25 mls/hr IVPB Q12HR [facility] Rx #:[id number] D5-0.45% NaCl with KCl 4728 629 6744 20Meq/l 1,000 ml @ 150 mls/hr IV .Q6H40M [facility] Rx# :[id number] Magnesium Sulfate-D5w Pmx 200 1 gm In Dextrose/Water 1 100ml.bag @ 100 mls/hr IVPB Q1H [facility] Rx#: [id number] Potassium Chloride 10 meq 200 In Water For Injection 1 100ml.bag @ 100 mls/hr IVPB Q1H [facility] Rx#: [id number] Sodium Chloride 0.9% 1, 1000 000 ml @ 200 mls/hr IV . Q5H [facility] Rx#:[id number] Sodium Phosphate 60 mmol 250 In Dextrose 5% in Water 250 ml @ 45 mls/hr IVPB ONCE ONE Rx#:[id number] Intake, IV Titration 96.755 1436.973 129.608 Amount Ampicillin-Sulbactam 3 gm 200 100 In Sodium Chloride 0.9% 100 ml @ 200 mls/hr IVPB Q6HR [facility] Rx#:[id number] D5-0.45% NaCl with KCl 1200 20Meq/l 1,000 ml @ 150 mls/hr IV .Q6H40M [facility] Rx# :[id number] Insulin Regular 100 unit 96.755 36.973 29.608 In Sodium Chloride 0.9% 100 ml @ 0.1 UNITS/KG/HR 6.872 mls/hr IV .[id number] [facility] Rx#:[id number] Oral 1200 Output: Urine 1260 1075 1250 Other: Voiding Method Indwelling Catheter Indwelling Catheter Toilet # Voids 0 - Exam Physical Exam: Vital signs reviewed General: nontoxic, no distress, appears at stated age Derm: warm, dry, intact Head: atraumatic, normocephalic, symmetric Eyes: EOMI, anicteric sclera Mouth: no lip lesion, mucus membranes moist Cardiovascular: S1 S2 reg, no murmur, rubs, or gallops Lungs: CTA bilateral, no rhonchi, no rales, no accessory muscle use Abdominal: soft, diffuse nonspecific tenderness to palpataion, no appreciable organomegaly Extremities: no gross muscle atrophy, no edema, no contractures Neuro: Alert, Oriented, CNII-XII grossly intact, gait normal Psych: well appearing, appropriate affect - Labs CBC & Chem 7: 06/27/24 05:32 06/27/24 05:32 Labs: Abnormal Lab Results - Last 24 Hours (Table) 06/25/24 06/26/24 06/26/24 Range/Units 11:47 05:47 05:47 WBC 27.0 H (3.8-10.6) k/uL Hgb (11.4-16.0) gm/dL Hct (34.0-46.0) % Plt Count (150-450) k/uL Neutrophils # 24.3 H (1.3-7.7) k/uL Monocytes # 1.2 H (0-1.0) k/uL Sodium 130 L (137-145) mmol/L Chloride 109 H (98-107) mmol/L Carbon Dioxide 14 L (22-30) mmol/L Creatinine (0.52-1.04) mg/dL Glucose 255 H (74-99) mg/dL POC Glucose (mg/dL) (70-110) mg/dL Hemoglobin A1c (<=6.0) % Calcium 7.3 L (8.4-10.2) mg/dL Phosphorus 5.4 H (2.5-4.5) mg/dL Total Bilirubin 1.4 H (0.2-1.3) mg/dL AST 364 H (14-36) U/L ALT 164 H (4-34) U/L Alkaline Phosphatase 221 H (38-126) U/L Total Protein 6.0 L (6.3-8.2) g/dL Albumin 2.9 L (3.5-5.0) g/dL TSH <0.015 L (0.465-4.680) mIU/L Urine Glucose (UA) 4+ H (Negative) Urine Ketones 1+ H (Negative) 06/26/24 06/26/24 06/26/24 Range/Units 07:01 08:07 09:03 WBC (3.8-10.6) k/uL Hgb (11.4-16.0) gm/dL Hct (34.0-46.0) % Plt Count (150-450) k/uL Neutrophils # (1.3-7.7) k/uL Monocytes # (0-1.0) k/uL Sodium 135 L (137-145) mmol/L Chloride 109 H (98-107) mmol/L Carbon Dioxide 17 L (22-30) mmol/L Creatinine 0.48 L (0.52-1.04) mg/dL Glucose 150 H (74-99) mg/dL POC Glucose (mg/dL) 229 H 169 H (70-110) mg/dL Hemoglobin A1c (<=6.0) % Calcium 7.6 L (8.4-10.2) mg/dL Phosphorus (2.5-4.5) mg/dL Total Bilirubin (0.2-1.3) mg/dL AST 357 H (14-36) U/L ALT 170 H (4-34) U/L Alkaline Phosphatase 191 H (38-126) U/L Total Protein 6.1 L (6.3-8.2) g/dL Albumin 3.0 L (3.5-5.0) g/dL TSH (0.465-4.680) mIU/L Urine Glucose (UA) (Negative) Urine Ketones (Negative) 06/26/24 06/26/24 06/26/24 Range/Units 09:03 09:20 10:06 WBC (3.8-10.6) k/uL Hgb (11.4-16.0) gm/dL Hct (34.0-46.0) % Plt Count (150-450) k/uL Neutrophils # (1.3-7.7) k/uL Monocytes # (0-1.0) k/uL Sodium (137-145) mmol/L Chloride (98-107) mmol/L Carbon Dioxide (22-30) mmol/L Creatinine (0.52-1.04) mg/dL Glucose (74-99) mg/dL POC Glucose (mg/dL) 135 H 133 H (70-110) mg/dL Hemoglobin A1c 9.3 H (<=6.0) % Calcium (8.4-10.2) mg/dL Phosphorus (2.5-4.5) mg/dL Total Bilirubin (0.2-1.3) mg/dL AST (14-36) U/L ALT (4-34) U/L Alkaline Phosphatase (38-126) U/L Total Protein (6.3-8.2) g/dL Albumin (3.5-5.0) g/dL TSH (0.465-4.680) mIU/L Urine Glucose (UA) (Negative) Urine Ketones (Negative) 06/26/24 06/26/24 06/26/24 Range/Units 11:00 12:00 12:58 WBC (3.8-10.6) k/uL Hgb (11.4-16.0) gm/dL Hct (34.0-46.0) % Plt Count (150-450) k/uL Neutrophils # (1.3-7.7) k/uL Monocytes # (0-1.0) k/uL Sodium 131 L (137-145) mmol/L Chloride 109 H (98-107) mmol/L Carbon Dioxide 15 L (22-30) mmol/L Creatinine 0.46 L (0.52-1.04) mg/dL Glucose 247 H (74-99) mg/dL POC Glucose (mg/dL) 185 H 224 H (70-110) mg/dL Hemoglobin A1c (<=6.0) % Calcium 7.6 L (8.4-10.2) mg/dL Phosphorus (2.5-4.5) mg/dL Total Bilirubin (0.2-1.3) mg/dL AST 315 H (14-36) U/L ALT 165 H (4-34) U/L Alkaline Phosphatase 192 H (38-126) U/L Total Protein 5.8 L (6.3-8.2) g/dL Albumin 2.8 L (3.5-5.0) g/dL TSH (0.465-4.680) mIU/L Urine Glucose (UA) (Negative) Urine Ketones (Negative) 06/26/24 06/26/24 06/26/24 Range/Units 13:01 14:28 14:58 WBC (3.8-10.6) k/uL Hgb (11.4-16.0) gm/dL Hct (34.0-46.0) % Plt Count (150-450) k/uL Neutrophils # (1.3-7.7) k/uL Monocytes # (0-1.0) k/uL Sodium (137-145) mmol/L Chloride (98-107) mmol/L Carbon Dioxide (22-30) mmol/L Creatinine (0.52-1.04) mg/dL Glucose (74-99) mg/dL POC Glucose (mg/dL) 242 H 290 H 283 H (70-110) mg/dL Hemoglobin A1c (<=6.0) % Calcium (8.4-10.2) mg/dL Phosphorus (2.5-4.5) mg/dL Total Bilirubin (0.2-1.3) mg/dL AST (14-36) U/L ALT (4-34) U/L Alkaline Phosphatase (38-126) U/L Total Protein (6.3-8.2) g/dL Albumin (3.5-5.0) g/dL TSH (0.465-4.680) mIU/L Urine Glucose (UA) (Negative) Urine Ketones (Negative) 06/26/24 06/26/24 06/26/24 Range/Units 15:58 16:57 17:13 WBC (3.8-10.6) k/uL Hgb (11.4-16.0) gm/dL Hct (34.0-46.0) % Plt Count (150-450) k/uL Neutrophils # (1.3-7.7) k/uL Monocytes # (0-1.0) k/uL Sodium 132 L (137-145) mmol/L Chloride 111 H (98-107) mmol/L Carbon Dioxide 11 L (22-30) mmol/L Creatinine 0.46 L (0.52-1.04) mg/dL Glucose 264 H (74-99) mg/dL POC Glucose (mg/dL) 253 H 267 H (70-110) mg/dL Hemoglobin A1c (<=6.0) % Calcium 8.0 L (8.4-10.2) mg/dL Phosphorus (2.5-4.5) mg/dL Total Bilirubin 1.7 H (0.2-1.3) mg/dL AST 305 H (14-36) U/L ALT 165 H (4-34) U/L Alkaline Phosphatase 194 H (38-126) U/L Total Protein 6.0 L (6.3-8.2) g/dL Albumin 2.8 L (3.5-5.0) g/dL TSH (0.465-4.680) mIU/L Urine Glucose (UA) (Negative) Urine Ketones (Negative) 06/26/24 06/26/24 06/26/24 Range/Units 18:10 19:03 21:07 WBC (3.8-10.6) k/uL Hgb (11.4-16.0) gm/dL Hct (34.0-46.0) % Plt Count (150-450) k/uL Neutrophils # (1.3-7.7) k/uL Monocytes # (0-1.0) k/uL Sodium (137-145) mmol/L Chloride (98-107) mmol/L Carbon Dioxide (22-30) mmol/L Creatinine (0.52-1.04) mg/dL Glucose (74-99) mg/dL POC Glucose (mg/dL) 262 H 243 H 130 H (70-110) mg/dL Hemoglobin A1c (<=6.0) % Calcium (8.4-10.2) mg/dL Phosphorus (2.5-4.5) mg/dL Total Bilirubin (0.2-1.3) mg/dL AST (14-36) U/L ALT (4-34) U/L Alkaline Phosphatase (38-126) U/L Total Protein (6.3-8.2) g/dL Albumin (3.5-5.0) g/dL TSH (0.465-4.680) mIU/L Urine Glucose (UA) (Negative) Urine Ketones (Negative) 06/26/24 06/26/24 06/27/24 Range/Units 22:03 22:59 00:11 WBC (3.8-10.6) k/uL Hgb (11.4-16.0) gm/dL Hct (34.0-46.0) % Plt Count (150-450) k/uL Neutrophils # (1.3-7.7) k/uL Monocytes # (0-1.0) k/uL Sodium (137-145) mmol/L Chloride (98-107) mmol/L Carbon Dioxide (22-30) mmol/L Creatinine (0.52-1.04) mg/dL Glucose (74-99) mg/dL POC Glucose (mg/dL) 138 H 163 H 184 H (70-110) mg/dL Hemoglobin A1c (<=6.0) % Calcium (8.4-10.2) mg/dL Phosphorus (2.5-4.5) mg/dL Total Bilirubin (0.2-1.3) mg/dL AST (14-36) U/L ALT (4-34) U/L Alkaline Phosphatase (38-126) U/L Total Protein (6.3-8.2) g/dL Albumin (3.5-5.0) g/dL TSH (0.465-4.680) mIU/L Urine Glucose (UA) (Negative) Urine Ketones (Negative) 06/27/24 06/27/24 06/27/24 Range/Units 01:07 01:51 03:07 WBC (3.8-10.6) k/uL Hgb (11.4-16.0) gm/dL Hct (34.0-46.0) % Plt Count (150-450) k/uL Neutrophils # (1.3-7.7) k/uL Monocytes # (0-1.0) k/uL Sodium (137-145) mmol/L Chloride (98-107) mmol/L Carbon Dioxide (22-30) mmol/L Creatinine (0.52-1.04) mg/dL Glucose (74-99) mg/dL POC Glucose (mg/dL) 203 H 229 H 236 H (70-110) mg/dL Hemoglobin A1c (<=6.0) % Calcium (8.4-10.2) mg/dL Phosphorus (2.5-4.5) mg/dL Total Bilirubin (0.2-1.3) mg/dL AST (14-36) U/L ALT (4-34) U/L Alkaline Phosphatase (38-126) U/L Total Protein (6.3-8.2) g/dL Albumin (3.5-5.0) g/dL TSH (0.465-4.680) mIU/L Urine Glucose (UA) (Negative) Urine Ketones (Negative) 06/27/24 06/27/24 06/27/24 Range/Units 04:10 05:11 05:32 WBC (3.8-10.6) k/uL Hgb (11.4-16.0) gm/dL Hct (34.0-46.0) % Plt Count (150-450) k/uL Neutrophils # (1.3-7.7) k/uL Monocytes # (0-1.0) k/uL Sodium 133 L (137-145) mmol/L Chloride 110 H (98-107) mmol/L Carbon Dioxide 20 L (22-30) mmol/L Creatinine 0.40 L (0.52-1.04) mg/dL Glucose 239 H (74-99) mg/dL POC Glucose (mg/dL) 239 H 251 H (70-110) mg/dL Hemoglobin A1c (<=6.0) % Calcium 7.8 L (8.4-10.2) mg/dL Phosphorus (2.5-4.5) mg/dL Total Bilirubin 1.8 H (0.2-1.3) mg/dL AST 164 H (14-36) U/L ALT 150 H (4-34) U/L Alkaline Phosphatase 212 H (38-126) U/L Total Protein 5.9 L (6.3-8.2) g/dL Albumin 2.7 L (3.5-5.0) g/dL TSH (0.465-4.680) mIU/L Urine Glucose (UA) (Negative) Urine Ketones (Negative) 06/27/24 06/27/24 Range/Units 05:32 05:32 WBC 21.3 H (3.8-10.6) k/uL Hgb 10.9 L (11.4-16.0) gm/dL Hct 33.4 L (34.0-46.0) % Plt Count 136 L (150-450) k/uL Neutrophils # (1.3-7.7) k/uL Monocytes # (0-1.0) k/uL Sodium (137-145) mmol/L Chloride (98-107) mmol/L Carbon Dioxide (22-30) mmol/L Creatinine (0.52-1.04) mg/dL Glucose (74-99) mg/dL POC Glucose (mg/dL) (70-110) mg/dL Hemoglobin A1c (<=6.0) % Calcium (8.4-10.2) mg/dL Phosphorus 2.3 L (2.5-4.5) mg/dL Total Bilirubin (0.2-1.3) mg/dL AST (14-36) U/L ALT (4-34) U/L Alkaline Phosphatase (38-126) U/L Total Protein (6.3-8.2) g/dL Albumin (3.5-5.0) g/dL TSH (0.465-4.680) mIU/L Urine Glucose (UA) (Negative) Urine Ketones (Negative) Microbiology - Last 24 Hours (Table) 06/25/24 19:00 Urine Culture - Final Urine,Catheterized 06/25/24 15:35 Blood Culture - Preliminary Blood Assessment and Plan Assessment: #. DKA with severe anion gap metabolic acidosis, improving The patient has a combination of lactic acidosis and diabetic ketoacidosis. Being transitioned off insulin drip to Levemir SQ 20 units, and insulin SQ sliding scale #. Acute altered mentation secondary to DKA CAT scan of the brain is negative. Neurologic exam is nonfocal. #. Type 1 diabetes mellitus Maintained on a combination of Farxiga, Mounjaro and Lantus insulin on outpatient basis. Blood sugar control has been poor on outpatient basis. Was informed patient was switched to insulin pump, however patient states insulin pump was not functioning properly, likely cause of her DKA She has not been taking her Lantus insulin. A1c 9.3 #. Sinus tachycardia, most likely secondary to dehydration, improved She also has hyperthyroidism which could be contributing to her sinus tachycardia Improving with atenolol #. Severe dehydration, improved #. Leukocytosis Likely reactive. No signs of any infection or septicemia at this point in time. #. Elevated troponin Likely type II ischemia #. Mild transaminitis LFTs are still elevated. CT showing hepatic steatosis and gas, fluid around gallbladder but no distention of the gallbladder or wall thickening Has history of alpha 1 antitrypsin, alpha antitrypsin level 137 HIDA scan scheduled for today Patient with diffuse nonspecific abdominal pain Amylase, lipase, CPK within normal limit # Graves disease Hyperthyroidism Maintained on cefazolin outpatient basis Likely source of sinus tachycardia as stated above # History of atrial fibrillation Current rhythm is sinus. Continue with Xarelto #. Alpha 1 AT deficiency, MZ Plan: Plan Patient serum bicarb 20, anion gap 3. Transition from insulin drip to sliding scale and Levemir per DKA protocol Blood sugar on an hourly basis Electrolytes every 4 hours Amylase, lipase, CPK levels within normal limit A1c 9.3 Check test was negative Room air oxygen Continue with Tapazole, hyperthyroid likely source of previous tachycardia c/w atenolol c/w anticoagulation with Xarelto for history of atrial fibrillation HIDA Scan Downgrade to inpatient floor
[2024-06-27 12:32] LABS: Glucose,Whole Blood 72 mg/dL (70-110)
--- NOTE | 2024-06-27 12:44 | NM ---
EXAMINATION TYPE: NM hepatobiliary w CCK DATE OF EXAM: 06/27/2024 COMPARISON: NONE CLINICAL INDICATION: Female, 44 years old with history of cholycystitis; TECHNIQUE: After the intravenous administration of 5.27 mCi Tc 99m Mebrofenin hepatobiliary scintigra phy is performed. Immediate images post injection. FINDINGS: There is satisfactory initial accumulation of tracer by the liver. The gallbladder is visualized wit hin 12 minutes. The small bowel activity is noted within 19 minutes. At one hour CCK was administer ed, patient was injected with 1.4 mcg of Kinevac, and gallbladder ejection fraction is calculated at 63 %, in the normal range. Therefore there is no scintigraphic evidence of cystic or common bile ross t obstruction to suggest acute cholecystitis or gallbladder dyskinesia. IMPRESSION: Exam is within normal limits. [facility] Alexis López, , 06/27/2024 12:42 PM
--- NOTE | 2024-06-27 13:38 | P.PN ---
Subjective Progress Note Date: 06/27/24 This is a 44-year-old female patient was diagnosed having type 1 diabetes and is diagnosed with diabetes approximately a month ago and the patient was receiving a combination of Mounjaro, Farxiga and Lantus insulin 20 units on a daily basis. The family believes that the patient was not taking his insulin although they are not certain. The patient comes into the emergency department with altered mentation and she was in full-blown DKA and at the same time she was severely acidotic with severe lactic acidosis. She was tachycardic and her heart rate was around 150. Initial blood gas showed a pH of 6.9 with a pCO2 of less than 15 and a pO2 of 146 and this was an FiO2 of 21%. Initial blood sugar was 530 and the patient had severe anion gap metabolic acidosis with a serum bicarb of less than 5. The acetone was positive. Lactic acid level was as high as 22. Potassium level was at 5.6. Creatinine was at 1.4. BUN was 16. LFTs are mildly abnormal with an AST of 106, ALT of 68 and alkaline phosphatase of 299. Troponins at 0.08. The white cell count is 25.9 with the most 12.8 and a plate let count of 294. The patient is already received a total of 3 L of IV fluids and the patient is currently on normal saline at 100 cc an hour and insulin drip is running at 7 units an hour. Follow-up blood sugars show some improvement and sugar is currently down to 348. Electrolytes are being monitored very closely. Mentation remains altered. Remains tachycardic. Hemodynamically stable. Chest x-ray shows no acute abnormalities and the CAT scan of the brain also shows no acute abnormalities. 06/26/2024, the patient is being seen for a follow-up. The patient is feeling better compared to yesterday. The patient this morning is on a D5 half-normal saline at a rate of 100 cc an hour. Insulin drip is still running at 3.7 units an hour. There is improvement in the electrolyte imbalance and the patient's most recent electrolytes show a gap of 7 with a serum bicarb of 14. Potassium i s at 4.3. Sodium levels at 130. The blood sugar is currently is at 229.. The patient is less tachycardic. The patient was started on beta-blockers. Overnight the patient was given IV Lopressor and the patient will be started on atenolol today. TSH is suppressed and the patient has history of h yperthyroidism/Graves' disease and Tapazole was restarted. She is awake and alert and communicating. She has received approximately 5 L of IV fluid bolus and the fluid balance is positive. Her cardiac rhythm is sinus and her sinus tachycardia is improved considerably. LFTs are normal and the patient states that she has had abnormal LFTs for a long period of time. No nausea. No emesis. No abdominal pain. No altered mentation. The white cell count remains elevated at 27. No signs of any infection or septicemia and this is likely reactive in nature. The patient remains on room air oxygen. No other significant events overnight. Neurologically, she is awake and alert and communicating. She also states that she has history of alpha-1 antitrypsin disease, MZ phenotype. 06/27/2024, the patient is awake and alert. She started developing some abdominal pain as of yesterday evening. Noted, the patient also had some reactive leukocytosis. LFTs are abnormal. Nevertheless, there are no signs of acute cholecystitis. Ultrasound the gallbladder was done and showed no significant abnormalities. Also, the patient underwent a CAT scan of the abdomen and pelvis and the CAT scan showed some fluid layering in the pelvis and around the gallbladder. However, the gallbladder was not distended and there was no evidence of any gallbladder wall thickening, cholecystitis or Jacqueline lithiasis. Based on that and based on her ongoing abdominal pain, a HIDA scan was ordered. The patient remains on IV Unasyn. Meanwhile, the DKA has recovered. The gap is closed. Serum bicarb is up to 20 and the gap is at 30 and the patient is on D5 half-normal saline at rate of 150 cc an hour. This was will be discontinued and the patient will be transition to long-acting insulin. She will be started on Levemir insulin 21 units daily and NovoLog 7 units with meals. The white cell count is 21, hemoglobin 10.9 and platelet count is at 136. LFTs are elevated although they are improving. The patient's alpha-1 antitrypsin level came back within normal limits 137. Electrolytes are stable. Objective - Vital Signs Vital signs: Vital Signs Temp 97.9 F 06/27/24 04:00 Pulse 93 06/27/24 08:08 Resp 19 06/27/24 07:00 BP 142/88 06/27/24 07:00 Pulse Ox 100 06/27/24 07:00 FiO2 Intake & Output 06/26/24 06/27/24 06/27/24 18:59 06:59 18:59 Intake Total 3236.973 1929.608 250 Output Total 1075 1250 Balance 2161.973 679.608 250 Weight 70.3 kg 71.6 kg Intake: IV 600 1800 250 D5-0.45% NaCl with KCl 600 1800 150 20Meq/l 1,000 ml @ 150 mls/hr IV .Q6H40M [facility] Rx# :[id number] Magnesium Sulfate-D5w Pmx 100 1 gm In Dextrose/Water 1 100ml.bag @ 100 mls/hr IVPB Q1H [facility] Rx#: [id number] Intake, IV Titration 1436.973 129.608 Amount Ampicillin-Sulbactam 3 gm 200 100 In Sodium Chloride 0.9% 100 ml @ 200 mls/hr IVPB Q6HR [facility] Rx#:[id number] D5-0.45% NaCl with KCl 1200 20Meq/l 1,000 ml @ 150 mls/hr IV .Q6H40M [facility] Rx# :[id number] Insulin Regular 100 unit 36.973 29.608 In Sodium Chloride 0.9% 100 ml @ 0.1 UNITS/KG/HR 6.872 mls/hr IV .[id number] [facility] Rx#:[id number] Oral 1200 Output: Urine 1075 1250 Other: Voiding Method Indwelling Catheter Toilet # Voids 0 0 - Exam Vital signs as documented. Awake and alert and communicating Head exam is unremarkable. No scleral icterus or corneal arcus noted. Neck is without jugular venous distension, thyromegaly, or carotid bruits. Carotid upstrokes are brisk bilaterally. Lungs are clear to auscultation and percussion. Cardiac exam reveals the PMI to be normally sized and situated. Rhythm is r egular. First and second heart sounds normal. No murmurs, rubs or gallops. Abdominal exam reveals normal bowel sounds, no masses, no organomegaly and no aortic enlargement. Extremities are nonedematous and both femoral and pedal pulses are normal. Examination of the skin revealed no evidence of significant rashes, suspicious appearing nevi or other concerning lesions. Neurologically, neurologically, the patient is awake and alert and the patient does not have any focal neurological deficit. Cranial nerves are essentially intact. - Labs CBC & Chem 7: 06/27/24 05:32 06/27/24 05:32 Labs: Abnormal Lab Results - Last 24 Hours (Table) 06/25/24 06/26/24 06/26/24 Range/Units 11:47 09:03 09:03 WBC (3.8-10.6) k/uL Hgb (11.4-16.0) gm/dL Hct (34.0-46.0) % Plt Count (150-450) k/uL Sodium 135 L (137-145) mmol/L Chloride 109 H (98-107) mmol/L Carbon Dioxide 17 L (22-30) mmol/L Creatinine 0.48 L (0.52-1.04) mg/dL Glucose 150 H (74-99) mg/dL POC Glucose (mg/dL) (70-110) mg/dL Hemoglobin A1c 9.3 H (<=6.0) % Calcium 7.6 L (8.4-10.2) mg/dL Phosphorus (2.5-4.5) mg/dL Total Bilirubin (0.2-1.3) mg/dL AST 357 H (14-36) U/L ALT 170 H (4-34) U/L Alkaline Phosphatase 191 H (38-126) U/L Total Protein 6.1 L (6.3-8.2) g/dL Albumin 3.0 L (3.5-5.0) g/dL Urine Glucose (UA) 4+ H (Negative) Urine Ketones 1+ H (Negative) 06/26/24 06/26/24 06/26/24 Range/Units 09:20 10:06 11:00 WBC (3.8-10.6) k/uL Hgb (11.4-16.0) gm/dL Hct (34.0-46.0) % Plt Count (150-450) k/uL Sodium (137-145) mmol/L Chloride (98-107) mmol/L Carbon Dioxide (22-30) mmol/L Creatinine (0.52-1.04) mg/dL Glucose (74-99) mg/dL POC Glucose (mg/dL) 135 H 133 H 185 H (70-110) mg/dL Hemoglobin A1c (<=6.0) % Calcium (8.4-10.2) mg/dL Phosphorus (2.5-4.5) mg/dL Total Bilirubin (0.2-1.3) mg/dL AST (14-36) U/L ALT (4-34) U/L Alkaline Phosphatase (38-126) U/L Total Protein (6.3-8.2) g/dL Albumin (3.5-5.0) g/dL Urine Glucose (UA) (Negative) Urine Ketones (Negative) 06/26/24 06/26/24 06/26/24 Range/Units 12:00 12:58 13:01 WBC (3.8-10.6) k/uL Hgb (11.4-16.0) gm/dL Hct (34.0-46.0) % Plt Count (150-450) k/uL Sodium 131 L (137-145) mmol/L Chloride 109 H (98-107) mmol/L Carbon Dioxide 15 L (22-30) mmol/L Creatinine 0.46 L (0.52-1.04) mg/dL Glucose 247 H (74-99) mg/dL POC Glucose (mg/dL) 224 H 242 H (70-110) mg/dL Hemoglobin A1c (<=6.0) % Calcium 7.6 L (8.4-10.2) mg/dL Phosphorus (2.5-4.5) mg/dL Total Bilirubin (0.2-1.3) mg/dL AST 315 H (14-36) U/L ALT 165 H (4-34) U/L Alkaline Phosphatase 192 H (38-126) U/L Total Protein 5.8 L (6.3-8.2) g/dL Albumin 2.8 L (3.5-5.0) g/dL Urine Glucose (UA) (Negative) Urine Ketones (Negative) 06/26/24 06/26/24 06/26/24 Range/Units 14:28 14:58 15:58 WBC (3.8-10.6) k/uL Hgb (11.4-16.0) gm/dL Hct (34.0-46.0) % Plt Count (150-450) k/uL Sodium (137-145) mmol/L Chloride (98-107) mmol/L Carbon Dioxide (22-30) mmol/L Creatinine (0.52-1.04) mg/dL Glucose (74-99) mg/dL POC Glucose (mg/dL) 290 H 283 H 253 H (70-110) mg/dL Hemoglobin A1c (<=6.0) % Calcium (8.4-10.2) mg/dL Phosphorus (2.5-4.5) mg/dL Total Bilirubin (0.2-1.3) mg/dL AST (14-36) U/L ALT (4-34) U/L Alkaline Phosphatase (38-126) U/L Total Protein (6.3-8.2) g/dL Albumin (3.5-5.0) g/dL Urine Glucose (UA) (Negative) Urine Ketones (Negative) 06/26/24 06/26/24 06/26/24 Range/Units 16:57 17:13 18:10 WBC (3.8-10.6) k/uL Hgb (11.4-16.0) gm/dL Hct (34.0-46.0) % Plt Count (150-450) k/uL Sodium 132 L (137-145) mmol/L Chloride 111 H (98-107) mmol/L Carbon Dioxide 11 L (22-30) mmol/L Creatinine 0.46 L (0.52-1.04) mg/dL Glucose 264 H (74-99) mg/dL POC Glucose (mg/dL) 267 H 262 H (70-110) mg/dL Hemoglobin A1c (<=6.0) % Calcium 8.0 L (8.4-10.2) mg/dL Phosphorus (2.5-4.5) mg/dL Total Bilirubin 1.7 H (0.2-1.3) mg/dL AST 305 H (14-36) U/L ALT 165 H (4-34) U/L Alkaline Phosphatase 194 H (38-126) U/L Total Protein 6.0 L (6.3-8.2) g/dL Albumin 2.8 L (3.5-5.0) g/dL Urine Glucose (UA) (Negative) Urine Ketones (Negative) 06/26/24 06/26/24 06/26/24 Range/Units 19:03 21:07 22:03 WBC (3.8-10.6) k/uL Hgb (11.4-16.0) gm/dL Hct (34.0-46.0) % Plt Count (150-450) k/uL Sodium (137-145) mmol/L Chloride (98-107) mmol/L Carbon Dioxide (22-30) mmol/L Creatinine (0.52-1.04) mg/dL Glucose (74-99) mg/dL POC Glucose (mg/dL) 243 H 130 H 138 H (70-110) mg/dL Hemoglobin A1c (<=6.0) % Calcium (8.4-10.2) mg/dL Phosphorus (2.5-4.5) mg/dL Total Bilirubin (0.2-1.3) mg/dL AST (14-36) U/L ALT (4-34) U/L Alkaline Phosphatase (38-126) U/L Total Protein (6.3-8.2) g/dL Albumin (3.5-5.0) g/dL Urine Glucose (UA) (Negative) Urine Ketones (Negative) 06/26/24 06/27/24 06/27/24 Range/Units 22:59 00:11 01:07 WBC (3.8-10.6) k/uL Hgb (11.4-16.0) gm/dL Hct (34.0-46.0) % Plt Count (150-450) k/uL Sodium (137-145) mmol/L Chloride (98-107) mmol/L Carbon Dioxide (22-30) mmol/L Creatinine (0.52-1.04) mg/dL Glucose (74-99) mg/dL POC Glucose (mg/dL) 163 H 184 H 203 H (70-110) mg/dL Hemoglobin A1c (<=6.0) % Calcium (8.4-10.2) mg/dL Phosphorus (2.5-4.5) mg/dL Total Bilirubin (0.2-1.3) mg/dL AST (14-36) U/L ALT (4-34) U/L Alkaline Phosphatase (38-126) U/L Total Protein (6.3-8.2) g/dL Albumin (3.5-5.0) g/dL Urine Glucose (UA) (Negative) Urine Ketones (Negative) 06/27/24 06/27/24 06/27/24 Range/Units 01:51 03:07 04:10 WBC (3.8-10.6) k/uL Hgb (11.4-16.0) gm/dL Hct (34.0-46.0) % Plt Count (150-450) k/uL Sodium (137-145) mmol/L Chloride (98-107) mmol/L Carbon Dioxide (22-30) mmol/L Creatinine (0.52-1.04) mg/dL Glucose (74-99) mg/dL POC Glucose (mg/dL) 229 H 236 H 239 H (70-110) mg/dL Hemoglobin A1c (<=6.0) % Calcium (8.4-10.2) mg/dL Phosphorus (2.5-4.5) mg/dL Total Bilirubin (0.2-1.3) mg/dL AST (14-36) U/L ALT (4-34) U/L Alkaline Phosphatase (38-126) U/L Total Protein (6.3-8.2) g/dL Albumin (3.5-5.0) g/dL Urine Glucose (UA) (Negative) Urine Ketones (Negative) 06/27/24 06/27/24 06/27/24 Range/Units 05:11 05:32 05:32 WBC (3.8-10.6) k/uL Hgb (11.4-16.0) gm/dL Hct (34.0-46.0) % Plt Count (150-450) k/uL Sodium 133 L (137-145) mmol/L Chloride 110 H (98-107) mmol/L Carbon Dioxide 20 L (22-30) mmol/L Creatinine 0.40 L (0.52-1.04) mg/dL Glucose 239 H (74-99) mg/dL POC Glucose (mg/dL) 251 H (70-110) mg/dL Hemoglobin A1c (<=6.0) % Calcium 7.8 L (8.4-10.2) mg/dL Phosphorus 2.3 L (2.5-4.5) mg/dL Total Bilirubin 1.8 H (0.2-1.3) mg/dL AST 164 H (14-36) U/L ALT 150 H (4-34) U/L Alkaline Phosphatase 212 H (38-126) U/L Total Protein 5.9 L (6.3-8.2) g/dL Albumin 2.7 L (3.5-5.0) g/dL Urine Glucose (UA) (Negative) Urine Ketones (Negative) 06/27/24 06/27/24 Range/Units 05:32 08:03 WBC 21.3 H (3.8-10.6) k/uL Hgb 10.9 L (11.4-16.0) gm/dL Hct 33.4 L (34.0-46.0) % Plt Count 136 L (150-450) k/uL Sodium (137-145) mmol/L Chloride (98-107) mmol/L Carbon Dioxide (22-30) mmol/L Creatinine (0.52-1.04) mg/dL Glucose (74-99) mg/dL POC Glucose (mg/dL) 293 H (70-110) mg/dL Hemoglobin A1c (<=6.0) % Calcium (8.4-10.2) mg/dL Phosphorus (2.5-4.5) mg/dL Total Bilirubin (0.2-1.3) mg/dL AST (14-36) U/L ALT (4-34) U/L Alkaline Phosphatase (38-126) U/L Total Protein (6.3-8.2) g/dL Albumin (3.5-5.0) g/dL Urine Glucose (UA) (Negative) Urine Ketones (Negative) Microbiology - Last 24 Hours (Table) 06/25/24 19:00 Urine Culture - Final Urine,Catheterized 06/25/24 15:35 Blood Culture - Preliminary Blood Assessment and Plan Plan: DKA with severe anion gap metabolic acidosis, recovered and the gap is down to 3 and a serum bicarb is up to 20 Abdominal pain, negative ultrasound of the abdomen, negative CAT scan of the abdomen, LFTs are elevated, prior related to chronic fatty liver. Abdominal pain is still being further investigated. Acute altered mentation secondary to above, CAT scan of the brain is negative. Neurologic exam is nonfocal. Type 1 diabetes mellitus maintained on a combination of Farxiga, Mounjaro and Lantus insulin on outpatient basis. Blood sugar control has been poor on outpatient basis. Noted the patient was switched to a insulin pump and the pump was not functioning appropriately which probably put this patient to DKA. She has not been taking her Lantus insulin. Sinus tachycardia, most likely secondary to dehydration. She also has hypert hyroidism which could be contributing to her sinus tachycardia Severe dehydration, improved Leukocytosis, likely reactive. No signs of any infection or septicemia at this point in time. The patient is on Unasyn and the white cell count is also improving. Troponin leak, likely type II ischemia Mild transaminitis LFTs are still elevated. Graves disease Hyperthyroidism, maintained on Tapazole an outpatient basis and the patient's free T4 is slightly elevated and the patient is currently on beta- blockers History of atrial fibrillation, current rhythm is sinus. alpha 1 AT deficiency, MZ, alpha-1 levels are within normal limits. Plan Continue Levemir and insulin at 21 units and NovoLog 7 units with meals Blood sugar on an hourly basis Electrolytes have improved Check amylase and lipase and CPK are within normal limits Check hemoglobin A1c pending Lactic acid level normalized Check test was negative Alpha-1 antitrypsin levels are within normal limits Room air oxygen Continue Tapazole Restart atenolol Restart anticoagulation with Eliquis for history of atrial fibrillation HIDA scan was ordered Continue IV Unasyn Hepatitis profile within normal limits Will continue to follow, she can be transferred to a medical surgical floor
[2024-06-27] MEDS: CEFEPIME 2 GM in SODIUM CHLORIDE 0.9% 100 ML IVPB SCH (13:43)
--- NOTE | 2024-06-27 14:14 | P.PN ---
Subjective Progress Note Date: 06/27/24 HISTORY OF PRESENTING ILLNESS 44-year-old female with past medical history of type 1 diabetes, paroxysmal atrial fibrillation diagnosed in 2020. On anticoagulation with Eliquis. Known to Dr. Santoro. She presented to the hospital because of altered mental status. On admission she was noticed to be in diabetic ketoacidosis with serum bicarb less than 5, pH 6.9, pCO2 less than 15, lactic acid of 22 oh. She also had evidence of severe dehydration. Creatinine of 1.4. She had evidence of elevated troponin at 0.08, 0.64. She was transferred to an ICU and was managed with IV insulin drip and IV fl uids. On admission her ECG showed sinus tachycardia. At the time of evaluation, her heart rate was down to 80s, blood pressure was stable. She denies any symptoms of chest pain chest pressure palpitations lightheadedness or dizziness. She does report some abdominal discomfort. June 27, 2024 On today's exam patient is doing well from cardiovascular standpoint. Maintain sinus rhythm on telemetry. Denies any cardiovascular symptoms. Being transferred out of ICU today. PHYSICAL EXAMINATION Vital signs reviewed. Head: Normocephalic. Eyes: Sclerae nonicteric. Neck: Brisk carotid upstroke, no jugular venous distention. Lungs: Clear to auscultation. Heart: Regular rate and rhythm, S1-S2, no S3, no murmur or rub. Abdomen: Soft nontender, positive bowel sounds. Extremities: No edema, intact distal pulses. Neuro: Alert, oritented, no focal deficits. Detailed neuro exam was not performed. ASSESSMENT Elevated troponin, likely type II NSTEMI History of paroxysmal atrial fibrillation, sinus tachycardia on admission. Currently sinus rhythm Severe dehydration and diabetic ketoacidosis due to failure of insulin pump Mild transaminitis History of hyperthyroidism on methimazole PLAN At this time elevated troponin is most likely because of severe dehydration, acidosis. This likely related to acute coronary syndrome. No ECG changes restive of acute ischemia. Patient denies any chest pain. Continue aspirin, Continue Xarelto for history of atrial fibrillation She would benefit from being on a statin once her liver function improves back to normal. Recommend outpatient stress testing. Recommend outpatient follow-up with Dr. Santoro in next 1 to 2 weeks. It is unclear if patient was on Mounjaro and Farxiga on outpatient basis. It is listed in her home medication however patient denies being on it. Would recommend not to resume it on discharge as they are contraindicated in type 1 diabetes. Patient is cleared from cardiovascular standpoint. Would recommend outpatient follow-up. Please reconsult us in case of any questions. Objective - Vital Signs Vital signs: Vital Signs Temp 98.5 F 06/27/24 08:00 Pulse 99 06/27/24 09:00 Resp 20 06/27/24 09:00 BP 129/89 06/27/24 09:00 Pulse Ox 96 06/27/24 08:00 FiO2 Intake & Output 06/26/24 06/27/24 06/27/24 18:59 06:59 18:59 Intake Total 3236.973 1929.608 600 Output Total 1075 1250 500 Balance 2161.973 679.608 100 Weight 70.3 kg 71.6 kg Intake: IV 600 1800 500 D5-0.45% NaCl with KCl 600 1800 400 20Meq/l 1,000 ml @ 50 mls /hr IV .Q20H [facility] Rx#: [id number] Magnesium Sulfate-D5w Pmx 100 1 gm In Dextrose/Water 1 100ml.bag @ 100 mls/hr IVPB Q1H [facility] Rx#: [id number] Intake, IV Titration 1436.973 129.608 Amount Ampicillin-Sulbactam 3 gm 200 100 In Sodium Chloride 0.9% 100 ml @ 200 mls/hr IVPB Q6HR [facility] Rx#:[id number] D5-0.45% NaCl with KCl 1200 20Meq/l 1,000 ml @ 50 mls /hr IV .Q20H [facility] Rx#: [id number] Insulin Regular 100 unit 36.973 29.608 In Sodium Chloride 0.9% 100 ml @ 0.1 UNITS/KG/HR 6.872 mls/hr IV .[id number] [facility] Rx#:[id number] Oral 1200 100 Output: Urine 1075 1250 500 Other: Voiding Method Indwelling Catheter Toilet Toilet # Voids 0 0 - Labs CBC & Chem 7: 06/27/24 05:32 06/27/24 05:32 Labs: Abnormal Lab Results - Last 24 Hours (Table) 06/25/24 06/26/24 06/26/24 Range/Units 15:33 09:03 14:28 WBC (3.8-10.6) k/uL Hgb (11.4-16.0) gm/dL Hct (34.0-46.0) % Plt Count (150-450) k/uL Sodium (137-145) mmol/L Chloride (98-107) mmol/L Carbon Dioxide (22-30) mmol/L Creatinine (0.52-1.04) mg/dL Glucose (74-99) mg/dL POC Glucose (mg/dL) 290 H (70-110) mg/dL Hemoglobin A1c 9.3 H (<=6.0) % Calcium (8.4-10.2) mg/dL Phosphorus (2.5-4.5) mg/dL Total Bilirubin (0.2-1.3) mg/dL AST (14-36) U/L ALT (4-34) U/L Alkaline Phosphatase (38-126) U/L Total Protein (6.3-8.2) g/dL Albumin (3.5-5.0) g/dL TL Antibody >120 H (<5) IU/mL 06/26/24 06/26/24 06/26/24 Range/Units 14:58 15:58 16:57 WBC (3.8-10.6) k/uL Hgb (11.4-16.0) gm/dL Hct (34.0-46.0) % Plt Count (150-450) k/uL Sodium (137-145) mmol/L Chloride (98-107) mmol/L Carbon Dioxide (22-30) mmol/L Creatinine (0.52-1.04) mg/dL Glucose (74-99) mg/dL POC Glucose (mg/dL) 283 H 253 H 267 H (70-110) mg/dL Hemoglobin A1c (<=6.0) % Calcium (8.4-10.2) mg/dL Phosphorus (2.5-4.5) mg/dL Total Bilirubin (0.2-1.3) mg/dL AST (14-36) U/L ALT (4-34) U/L Alkaline Phosphatase (38-126) U/L Total Protein (6.3-8.2) g/dL Albumin (3.5-5.0) g/dL TL Antibody (<5) IU/mL 06/26/24 06/26/24 06/26/24 Range/Units 17:13 18:10 19:03 WBC (3.8-10.6) k/uL Hgb (11.4-16.0) gm/dL Hct (34.0-46.0) % Plt Count (150-450) k/uL Sodium 132 L (137-145) mmol/L Chloride 111 H (98-107) mmol/L Carbon Dioxide 11 L (22-30) mmol/L Creatinine 0.46 L (0.52-1.04) mg/dL Glucose 264 H (74-99) mg/dL POC Glucose (mg/dL) 262 H 243 H (70-110) mg/dL Hemoglobin A1c (<=6.0) % Calcium 8.0 L (8.4-10.2) mg/dL Phosphorus (2.5-4.5) mg/dL Total Bilirubin 1.7 H (0.2-1.3) mg/dL AST 305 H (14-36) U/L ALT 165 H (4-34) U/L Alkaline Phosphatase 194 H (38-126) U/L Total Protein 6.0 L (6.3-8.2) g/dL Albumin 2.8 L (3.5-5.0) g/dL TL Antibody (<5) IU/mL 06/26/24 06/26/24 06/26/24 Range/Units 21:07 22:03 22:59 WBC (3.8-10.6) k/uL Hgb (11.4-16.0) gm/dL Hct (34.0-46.0) % Plt Count (150-450) k/uL Sodium (137-145) mmol/L Chloride (98-107) mmol/L Carbon Dioxide (22-30) mmol/L Creatinine (0.52-1.04) mg/dL Glucose (74-99) mg/dL POC Glucose (mg/dL) 130 H 138 H 163 H (70-110) mg/dL Hemoglobin A1c (<=6.0) % Calcium (8.4-10.2) mg/dL Phosphorus (2.5-4.5) mg/dL Total Bilirubin (0.2-1.3) mg/dL AST (14-36) U/L ALT (4-34) U/L Alkaline Phosphatase (38-126) U/L Total Protein (6.3-8.2) g/dL Albumin (3.5-5.0) g/dL TL Antibody (<5) IU/mL 06/27/24 06/27/24 06/27/24 Range/Units 00:11 01:07 01:51 WBC (3.8-10.6) k/uL Hgb (11.4-16.0) gm/dL Hct (34.0-46.0) % Plt Count (150-450) k/uL Sodium (137-145) mmol/L Chloride (98-107) mmol/L Carbon Dioxide (22-30) mmol/L Creatinine (0.52-1.04) mg/dL Glucose (74-99) mg/dL POC Glucose (mg/dL) 184 H 203 H 229 H (70-110) mg/dL Hemoglobin A1c (<=6.0) % Calcium (8.4-10.2) mg/dL Phosphorus (2.5-4.5) mg/dL Total Bilirubin (0.2-1.3) mg/dL AST (14-36) U/L ALT (4-34) U/L Alkaline Phosphatase (38-126) U/L Total Protein (6.3-8.2) g/dL Albumin (3.5-5.0) g/dL TL Antibody (<5) IU/mL 06/27/24 06/27/24 06/27/24 Range/Units 03:07 04:10 05:11 WBC (3.8-10.6) k/uL Hgb (11.4-16.0) gm/dL Hct (34.0-46.0) % Plt Count (150-450) k/uL Sodium (137-145) mmol/L Chloride (98-107) mmol/L Carbon Dioxide (22-30) mmol/L Creatinine (0.52-1.04) mg/dL Glucose (74-99) mg/dL POC Glucose (mg/dL) 236 H 239 H 251 H (70-110) mg/dL Hemoglobin A1c (<=6.0) % Calcium (8.4-10.2) mg/dL Phosphorus (2.5-4.5) mg/dL Total Bilirubin (0.2-1.3) mg/dL AST (14-36) U/L ALT (4-34) U/L Alkaline Phosphatase (38-126) U/L Total Protein (6.3-8.2) g/dL Albumin (3.5-5.0) g/dL TL Antibody (<5) IU/mL 06/27/24 06/27/24 06/27/24 Range/Units 05:32 05:32 05:32 WBC 21.3 H (3.8-10.6) k/uL Hgb 10.9 L (11.4-16.0) gm/dL Hct 33.4 L (34.0-46.0) % Plt Count 136 L (150-450) k/uL Sodium 133 L (137-145) mmol/L Chloride 110 H (98-107) mmol/L Carbon Dioxide 20 L (22-30) mmol/L Creatinine 0.40 L (0.52-1.04) mg/dL Glucose 239 H (74-99) mg/dL POC Glucose (mg/dL) (70-110) mg/dL Hemoglobin A1c (<=6.0) % Calcium 7.8 L (8.4-10.2) mg/dL Phosphorus 2.3 L (2.5-4.5) mg/dL Total Bilirubin 1.8 H (0.2-1.3) mg/dL AST 164 H (14-36) U/L ALT 150 H (4-34) U/L Alkaline Phosphatase 212 H (38-126) U/L Total Protein 5.9 L (6.3-8.2) g/dL Albumin 2.7 L (3.5-5.0) g/dL TL Antibody (<5) IU/mL 06/27/24 Range/Units 08:03 WBC (3.8-10.6) k/uL Hgb (11.4-16.0) gm/dL Hct (34.0-46.0) % Plt Count (150-450) k/uL Sodium (137-145) mmol/L Chloride (98-107) mmol/L Carbon Dioxide (22-30) mmol/L Creatinine (0.52-1.04) mg/dL Glucose (74-99) mg/dL POC Glucose (mg/dL) 293 H (70-110) mg/dL Hemoglobin A1c (<=6.0) % Calcium (8.4-10.2) mg/dL Phosphorus (2.5-4.5) mg/dL Total Bilirubin (0.2-1.3) mg/dL AST (14-36) U/L ALT (4-34) U/L Alkaline Phosphatase (38-126) U/L Total Protein (6.3-8.2) g/dL Albumin (3.5-5.0) g/dL TL Antibody (<5) IU/mL Microbiology - Last 24 Hours (Table) 06/25/24 19:00 Urine Culture - Final Urine,Catheterized 06/25/24 15:35 Blood Culture - Preliminary Blood
[2024-06-27 14:20] LABS: Glucose,Whole Blood 177 mg/dL (70-110)
--- NOTE | 2024-06-27 14:42 | P.GSCN ---
History of Present Illness Consult date: 06/27/24 History of present illness: CHIEF COMPLAINT: DKA HISTORY OF PRESENT ILLNESS: This is a 44-year-old female who presented to the hospital for DKA. She was in the ICU. Yesterday patient started having right upper quadrant and right lower quadrant abdominal pain. She has been having nausea. She reports having vomiting on Monday. She reports it has been a few days since her last bowel movement she is having flatus. Surgical service was consulted in regards to patient's abdominal pain. A CT scan abdomen pelvis had been done for possible perforation. There is no evidence of perforation on CAT scan. It did report free fluid in the pelvis and around the gallbladder. No evidence of gallstones. And reported a fatty liver. Gallbladder ultrasound reported no acute process and did report fatty liver. Patient has had an elevated white count. Mildly elevated bilirubin and elevated LFTs. She is on antibiotics for possible cholecystitis and cholangitis. She had a HIDA scan completed this morning and that was normal. Patient denies any prior abdominal surgeries. Patient does report having a history of elevated liver enzymes since April 2023. Patient with elevated white count, mildly tachycardic, hypotension and low-grade temperature. Currently on antibiotics PAST MEDICAL HISTORY: Diabetic, hypothyroidism, A-fib PAST SURGICAL HISTORY: See below MEDICATIONS: See below ALLERGIES: See below SOCIAL HISTORY: No illicit drug use. REVIEW OF SYSTEMS: CONSTITUTIONAL: Denies fever or chills. HEENT: Denies blurred vision, vision changes, or eye pain. Denies hemoptysis CARDIOVASCULAR: Denies chest pain or pressure. RESPIRATORY: No shortness of breath. GASTROINTESTINAL: See HPI for pertinent findings HEMATOLOGIC: Denies bleeding disorders. GENITOURINARY: Denies any blood in urine or increased urinary frequency. SKIN: Denies pruitis. Denies rash. PHYSICAL EXAM: VITAL SIGNS: Reviewed GENERAL: Well-developed in no acute distress. HEENT: No sclera icterus. Extraocular movements grossly intact. Moist buccal mucosa. Head is atraumatic, normocephalic. No nasal drainage. ABDOMEN: Soft. Nondistended. Tenderness to palpation in the right upper quadrant and right lower quadrant NEUROLOGIC: Alert and oriented. Cranial nerves II through XII grossly intact. LABORATORY DATA: WBC 27 down to 21.3 Hgb 10.9 platelets 136 Total bilirubin 1.8 AST 321 down to 164 ALT 165 down to 150 alk phos 194 up to 12 Glucose 177 IMAGING: CT scan abdomen pelvis reports free fluid layering in the pelvis and around the gallbladder. Gallbladder is not distended. There is no evidence for gallbladder wall thickening or evidence for cholelithiasis/choledocholithiasis. Consider evaluation with HIDA scan for acute cholecystitis. Hepatic steatosis. Pelvic/transvaginal ultrasound reports some soft tissue fluid in the pelvis otherwise no acute abdominal process. Nonvisualization of ovaries secondary to bowel gas. Gallbladder ultrasound reports limited exam due to overlying bowel gas. No evidence for acute process. Findings suggest hepatic steatosis. HIDA scan is normal EF 63% ASSESSMENT: 1. Right upper quadrant and right lower quadrant abdominal pain. CAT scan with fluid around gallbladder. Possible cholecystitis 2. Cholangitis PLAN: -Continue antibiotics -Continue supportive care -Further recommendations forthcoming per surgeon Physician Ecclesiastical Worker note has been reviewed by physician. Signing provider agrees with the documented findings, assessment, and plan of care. I have personally seen and examined the patient, reviewed the SUPERVISOR OF GUIDANCE AND TESTING /PAs history, exam and MDM and agree with the assessment and plan as written. Based on total visit time, I have performed more than 50% of the visit. As above: Patient with right-sided abdominal pain. Says it started in the right lower quadrant 2 days ago. Patient with significant acidosis on arrival with a lactic acid of 22 and a pH of 6.9. Those numbers have improved. Liver enzymes remain elevated although trending downwards. No gallstones seen at this time. Gallbladder wall slightly thickened although sitting in a pool of liquid which many times will create that appearance. Etiology for free fluid within the right side of the abdomen unclear. No pneumoperitoneum seen. Patient's HIDA scan was normal. Patient says her pain is improved and 4 out of 10 currently. Continue empiric antibiotics. Continue regular diet for now. If pain were to continue and concern regarding possible abdominal source of infection persist consider diagnostic paracentesis. Will reassess tomorrow. Past Medical History Past Medical History: Atrial Fibrillation, Diabetes Mellitus, Thyroid Disorder History of Any Multi-Drug Resistant Organisms: None Reported Past Surgical History: No Surgical Hx Reported Past Anesthesia/Blood Transfusion Reactions: No Reported Reaction Past Psychological History: No Psychological Hx Reported Smoking Status: Never smoker Past Alcohol Use History: None Reported Past Drug Use History: None Reported - Past Family History Mother Family Medical History: Hypertension Father Family Medical History: Diabetes Mellitus Medications and Allergies Home Medications Medication Instructions Recorded Confirmed Type Acetaminophen Tab [Tylenol] 500 - 1,000 mg PO Q6HR PRN 10/23/20 06/25/24 History Aspirin EC [Ecotrin Low Dose] 81 mg PO DAILY 06/25/24 06/25/24 History Dapagliflozin Propanediol [Farxiga] 5 mg PO DAILY 06/25/24 06/25/24 History Dextroamphetamine/Amphetamine 20 mg PO BID@0900,1400 06/25/24 06/25/24 History [Adderall] Fexofenadine HCl [Jyotsna Allergy] 180 mg PO DAILY 06/25/24 06/25/24 History INSULIN LISPRO (HumaLOG) [humaLOG] 10 units SQ AC-TID 06/25/24 06/25/24 History Insulin Glargine,Hum.rec.anlog 20 units SQ DAILY 06/25/24 06/25/24 History [Lantus Solostar Pen] Pantoprazole [Protonix] 40 mg PO HS 06/25/24 06/25/24 History Rivaroxaban [Xarelto] 10 mg PO DAILY 06/25/24 06/25/24 History Tirzepatide [Mounjaro] 5 mg SQ Q7D 06/25/24 06/25/24 History atenoloL [Tenormin] 50 mg PO BID 06/25/24 06/25/24 History methIMAzole [Tapazole] 10 mg PO BID 06/25/24 06/25/24 History Allergies Allergy/AdvReac Type Severity Reaction Status Date / Time meperidine [From Demerol] Allergy syncope Verified 06/25/24 10:46 moxifloxacin [From Avelox] Allergy palpitation Verified 06/25/24 10:46 s Surgical - Exam Vital Signs Temp Pulse Resp BP 93.9 F L 146 H 30 H 111/58 06/25/24 09:24 06/25/24 09:24 06/25/24 09:24 06/25/24 09:24 Results - Labs 06/27/24 05:32 06/27/24 14:36 Abnormal Lab Results - Last 24 Hours (Table) 06/25/24 06/26/24 06/26/24 Range/Units 11:47 09:03 12:58 WBC (3.8-10.6) k/uL Hgb (11.4-16.0) gm/dL Hct (34.0-46.0) % Plt Count (150-450) k/uL Sodium 131 L (137-145) mmol/L Chloride 109 H (98-107) mmol/L Carbon Dioxide 15 L (22-30) mmol/L Creatinine 0.46 L (0.52-1.04) mg/dL Glucose 247 H (74-99) mg/dL POC Glucose (mg/dL) (70-110) mg/dL Hemoglobin A1c 9.3 H (<=6.0) % Calcium 7.6 L (8.4-10.2) mg/dL Phosphorus (2.5-4.5) mg/dL Total Bilirubin (0.2-1.3) mg/dL AST 315 H (14-36) U/L ALT 165 H (4-34) U/L Alkaline Phosphatase 192 H (38-126) U/L Total Protein 5.8 L (6.3-8.2) g/dL Albumin 2.8 L (3.5-5.0) g/dL Urine Glucose (UA) 4+ H (Negative) Urine Ketones 1+ H (Negative) 06/26/24 06/26/24 06/26/24 Range/Units 13:01 14:28 14:58 WBC (3.8-10.6) k/uL Hgb (11.4-16.0) gm/dL Hct (34.0-46.0) % Plt Count (150-450) k/uL Sodium (137-145) mmol/L Chloride (98-107) mmol/L Carbon Dioxide (22-30) mmol/L Creatinine (0.52-1.04) mg/dL Glucose (74-99) mg/dL POC Glucose (mg/dL) 242 H 290 H 283 H (70-110) mg/dL Hemoglobin A1c (<=6.0) % Calcium (8.4-10.2) mg/dL Phosphorus (2.5-4.5) mg/dL Total Bilirubin (0.2-1.3) mg/dL AST (14-36) U/L ALT (4-34) U/L Alkaline Phosphatase (38-126) U/L Total Protein (6.3-8.2) g/dL Albumin (3.5-5.0) g/dL Urine Glucose (UA) (Negative) Urine Ketones (Negative) 06/26/24 06/26/24 06/26/24 Range/Units 15:58 16:57 17:13 WBC (3.8-10.6) k/uL Hgb (11.4-16.0) gm/dL Hct (34.0-46.0) % Plt Count (150-450) k/uL Sodium 132 L (137-145) mmol/L Chloride 111 H (98-107) mmol/L Carbon Dioxide 11 L (22-30) mmol/L Creatinine 0.46 L (0.52-1.04) mg/dL Glucose 264 H (74-99) mg/dL POC Glucose (mg/dL) 253 H 267 H (70-110) mg/dL Hemoglobin A1c (<=6.0) % Calcium 8.0 L (8.4-10.2) mg/dL Phosphorus (2.5-4.5) mg/dL Total Bilirubin 1.7 H (0.2-1.3) mg/dL AST 305 H (14-36) U/L ALT 165 H (4-34) U/L Alkaline Phosphatase 194 H (38-126) U/L Total Protein 6.0 L (6.3-8.2) g/dL Albumin 2.8 L (3.5-5.0) g/dL Urine Glucose (UA) (Negative) Urine Ketones (Negative) 06/26/24 06/26/24 06/26/24 Range/Units 18:10 19:03 21:07 WBC (3.8-10.6) k/uL Hgb (11.4-16.0) gm/dL Hct (34.0-46.0) % Plt Count (150-450) k/uL Sodium (137-145) mmol/L Chloride (98-107) mmol/L Carbon Dioxide (22-30) mmol/L Creatinine (0.52-1.04) mg/dL Glucose (74-99) mg/dL POC Glucose (mg/dL) 262 H 243 H 130 H (70-110) mg/dL Hemoglobin A1c (<=6.0) % Calcium (8.4-10.2) mg/dL Phosphorus (2.5-4.5) mg/dL Total Bilirubin (0.2-1.3) mg/dL AST (14-36) U/L ALT (4-34) U/L Alkaline Phosphatase (38-126) U/L Total Protein (6.3-8.2) g/dL Albumin (3.5-5.0) g/dL Urine Glucose (UA) (Negative) Urine Ketones (Negative) 06/26/24 06/26/24 06/27/24 Range/Units 22:03 22:59 00:11 WBC (3.8-10.6) k/uL Hgb (11.4-16.0) gm/dL Hct (34.0-46.0) % Plt Count (150-450) k/uL Sodium (137-145) mmol/L Chloride (98-107) mmol/L Carbon Dioxide (22-30) mmol/L Creatinine (0.52-1.04) mg/dL Glucose (74-99) mg/dL POC Glucose (mg/dL) 138 H 163 H 184 H (70-110) mg/dL Hemoglobin A1c (<=6.0) % Calcium (8.4-10.2) mg/dL Phosphorus (2.5-4.5) mg/dL Total Bilirubin (0.2-1.3) mg/dL AST (14-36) U/L ALT (4-34) U/L Alkaline Phosphatase (38-126) U/L Total Protein (6.3-8.2) g/dL Albumin (3.5-5.0) g/dL Urine Glucose (UA) (Negative) Urine Ketones (Negative) 06/27/24 06/27/24 06/27/24 Range/Units 01:07 01:51 03:07 WBC (3.8-10.6) k/uL Hgb (11.4-16.0) gm/dL Hct (34.0-46.0) % Plt Count (150-450) k/uL Sodium (137-145) mmol/L Chloride (98-107) mmol/L Carbon Dioxide (22-30) mmol/L Creatinine (0.52-1.04) mg/dL Glucose (74-99) mg/dL POC Glucose (mg/dL) 203 H 229 H 236 H (70-110) mg/dL Hemoglobin A1c (<=6.0) % Calcium (8.4-10.2) mg/dL Phosphorus (2.5-4.5) mg/dL Total Bilirubin (0.2-1.3) mg/dL AST (14-36) U/L ALT (4-34) U/L Alkaline Phosphatase (38-126) U/L Total Protein (6.3-8.2) g/dL Albumin (3.5-5.0) g/dL Urine Glucose (UA) (Negative) Urine Ketones (Negative) 06/27/24 06/27/24 06/27/24 Range/Units 04:10 05:11 05:32 WBC (3.8-10.6) k/uL Hgb (11.4-16.0) gm/dL Hct (34.0-46.0) % Plt Count (150-450) k/uL Sodium 133 L (137-145) mmol/L Chloride 110 H (98-107) mmol/L Carbon Dioxide 20 L (22-30) mmol/L Creatinine 0.40 L (0.52-1.04) mg/dL Glucose 239 H (74-99) mg/dL POC Glucose (mg/dL) 239 H 251 H (70-110) mg/dL Hemoglobin A1c (<=6.0) % Calcium 7.8 L (8.4-10.2) mg/dL Phosphorus (2.5-4.5) mg/dL Total Bilirubin 1.8 H (0.2-1.3) mg/dL AST 164 H (14-36) U/L ALT 150 H (4-34) U/L Alkaline Phosphatase 212 H (38-126) U/L Total Protein 5.9 L (6.3-8.2) g/dL Albumin 2.7 L (3.5-5.0) g/dL Urine Glucose (UA) (Negative) Urine Ketones (Negative) 06/27/24 06/27/24 06/27/24 Range/Units 05:32 05:32 08:03 WBC 21.3 H (3.8-10.6) k/uL Hgb 10.9 L (11.4-16.0) gm/dL Hct 33.4 L (34.0-46.0) % Plt Count 136 L (150-450) k/uL Sodium (137-145) mmol/L Chloride (98-107) mmol/L Carbon Dioxide (22-30) mmol/L Creatinine (0.52-1.04) mg/dL Glucose (74-99) mg/dL POC Glucose (mg/dL) 293 H (70-110) mg/dL Hemoglobin A1c (<=6.0) % Calcium (8.4-10.2) mg/dL Phosphorus 2.3 L (2.5-4.5) mg/dL Total Bilirubin (0.2-1.3) mg/dL AST (14-36) U/L ALT (4-34) U/L Alkaline Phosphatase (38-126) U/L Total Protein (6.3-8.2) g/dL Albumin (3.5-5.0) g/dL Urine Glucose (UA) (Negative) Urine Ketones (Negative) Microbiology - Last 24 Hours (Table) 06/25/24 19:00 Urine Culture - Final Urine,Catheterized 06/25/24 15:35 Blood Culture - Preliminary Blood Diabetes panel 06/26/24 06/26/24 06/26/24 Range/Units 09:03 12:58 17:13 Sodium 131 L 132 L (137-145) mmol/L Potassium 4.4 4.6 (3.5-5.1) mmol/L Chloride 109 H 111 H (98-107) mmol/L Carbon Dioxide 15 L 11 L (22-30) mmol/L BUN 13 14 (7-17) mg/dL Creatinine 0.46 L 0.46 L (0.52-1.04) mg/dL Glucose 247 H 264 H (74-99) mg/dL Hemoglobin A1c 9.3 H (<=6.0) % Calcium 7.6 L 8.0 L (8.4-10.2) mg/dL AST 315 H 305 H (14-36) U/L ALT 165 H 165 H (4-34) U/L Alkaline Phosphatase 192 H 194 H (38-126) U/L Total Protein 5.8 L 6.0 L (6.3-8.2) g/dL Albumin 2.8 L 2.8 L (3.5-5.0) g/dL 06/27/24 Range/Units 05:32 Sodium 133 L (137-145) mmol/L Potassium 4.3 (3.5-5.1) mmol/L Chloride 110 H (98-107) mmol/L Carbon Dioxide 20 L (22-30) mmol/L BUN 12 (7-17) mg/dL Creatinine 0.40 L (0.52-1.04) mg/dL Glucose 239 H (74-99) mg/dL Hemoglobin A1c (<=6.0) % Calcium 7.8 L (8.4-10.2) mg/dL AST 164 H (14-36) U/L ALT 150 H (4-34) U/L Alkaline Phosphatase 212 H (38-126) U/L Total Protein 5.9 L (6.3-8.2) g/dL Albumin 2.7 L (3.5-5.0) g/dL Calcium panel 06/26/24 06/26/24 06/27/24 Range/Units 12:58 17:13 05:32 Calcium 7.6 L 8.0 L 7.8 L (8.4-10.2) mg/dL Phosphorus 3.6 3.0 (2.5-4.5) mg/dL Albumin 2.8 L 2.8 L 2.7 L (3.5-5.0) g/dL 06/27/24 Range/Units 05:32 Calcium (8.4-10.2) mg/dL Phosphorus 2.3 L (2.5-4.5) mg/dL Albumin (3.5-5.0) g/dL Pituitary panel 06/26/24 06/26/24 06/27/24 Range/Units 12:58 17:13 05:32 Sodium 131 L 132 L 133 L (137-145) mmol/L Potassium 4.4 4.6 4.3 (3.5-5.1) mmol/L Chloride 109 H 111 H 110 H (98-107) mmol/L Carbon Dioxide 15 L 11 L 20 L (22-30) mmol/L BUN 13 14 12 (7-17) mg/dL Creatinine 0.46 L 0.46 L 0.40 L (0.52-1.04) mg/dL Glucose 247 H 264 H 239 H (74-99) mg/dL Calcium 7.6 L 8.0 L 7.8 L (8.4-10.2) mg/dL Adrenal panel 06/26/24 06/26/24 06/27/24 Range/Units 12:58 17:13 05:32 Sodium 131 L 132 L 133 L (137-145) mmol/L Potassium 4.4 4.6 4.3 (3.5-5.1) mmol/L Chloride 109 H 111 H 110 H (98-107) mmol/L Carbon Dioxide 15 L 11 L 20 L (22-30) mmol/L BUN 13 14 12 (7-17) mg/dL Creatinine 0.46 L 0.46 L 0.40 L (0.52-1.04) mg/dL Glucose 247 H 264 H 239 H (74-99) mg/dL Calcium 7.6 L 8.0 L 7.8 L (8.4-10.2) mg/dL Total Bilirubin 1.3 1.7 H 1.8 H (0.2-1.3) mg/dL AST 315 H 305 H 164 H (14-36) U/L ALT 165 H 165 H 150 H (4-34) U/L Alkaline Phosphatase 192 H 194 H 212 H (38-126) U/L Total Protein 5.8 L 6.0 L 5.9 L (6.3-8.2) g/dL Albumin 2.8 L 2.8 L 2.7 L (3.5-5.0) g/dL
--- NOTE | 2024-06-27 15:13 | P.PN ---
Subjective Progress Note Date: 06/27/24 Principal diagnosis: Reason for follow-up is fever possible cholangitis Patient is a 44-year-old female with a past medical history significant for diabetes mellitus atrial fibrillation hypothyroidism in this patient has been brought into the hospital for evaluation of mental status changes, patient noted to be in DKA was initially hypothermic subsequent low- grade fever elevated white count prompted this consultation. On today's evaluation that is 06/27/2024, the patient has been afebrile, the patient is on room air and breathing comfortably, the Pt denies having any chest pain or cough, the patient still complaining of some right-sided abdominal pain but no worsening no vomiting or diarrhea. Patient white count is down to 21.3 creatinine 0.40 Objective - Vital Signs Vital signs: Vital Signs Temp 98.5 F 06/27/24 08:00 Pulse 99 06/27/24 09:00 Resp 20 06/27/24 09:00 BP 129/89 06/27/24 09:00 Pulse Ox 96 06/27/24 08:00 FiO2 Intake & Output 06/26/24 06/27/24 06/27/24 18:59 06:59 18:59 Intake Total 3236.973 1929.608 600 Output Total 1075 1250 500 Balance 2161.973 679.608 100 Weight 70.3 kg 71.6 kg Intake: IV 600 1800 500 D5-0.45% NaCl with KCl 600 1800 400 20Meq/l 1,000 ml @ 50 mls /hr IV .Q20H [facility] Rx#: [id number] Magnesium Sulfate-D5w Pmx 100 1 gm In Dextrose/Water 1 100ml.bag @ 100 mls/hr IVPB Q1H [facility] Rx#: [id number] Intake, IV Titration 1436.973 129.608 Amount Ampicillin-Sulbactam 3 gm 200 100 In Sodium Chloride 0.9% 100 ml @ 200 mls/hr IVPB Q6HR [facility] Rx#:[id number] D5-0.45% NaCl with KCl 1200 20Meq/l 1,000 ml @ 50 mls /hr IV .Q20H [facility] Rx#: [id number] Insulin Regular 100 unit 36.973 29.608 In Sodium Chloride 0.9% 100 ml @ 0.1 UNITS/KG/HR 6.872 mls/hr IV .[id number] Rx#:[id number] Oral 1200 100 Output: Urine 1075 1250 500 Other: Voiding Method Indwelling Catheter Toilet Toilet # Voids 0 0 - Exam GENERAL DESCRIPTION: Middle-age female lying in bed in no distress RESPIRATORY SYSTEM: Unlabored breathing , decreased breath sounds at bases HEART: S1 S2 regular rate and rhythm , ABDOMEN: Soft , no tenderness EXTREMITIES: No edema feet - Labs CBC & Chem 7: 06/27/24 05:32 06/27/24 05:32 Labs: Abnormal Lab Results - Last 24 Hours (Table) 06/26/24 06/26/24 06/26/24 Range/Units 09:03 14:28 14:58 WBC (3.8-10.6) k/uL Hgb (11.4-16.0) gm/dL Hct (34.0-46.0) % Plt Count (150-450) k/uL Sodium (137-145) mmol/L Chloride (98-107) mmol/L Carbon Dioxide (22-30) mmol/L Creatinine (0.52-1.04) mg/dL Glucose (74-99) mg/dL POC Glucose (mg/dL) 290 H 283 H (70-110) mg/dL Hemoglobin A1c 9.3 H (<=6.0) % Calcium (8.4-10.2) mg/dL Phosphorus (2.5-4.5) mg/dL Total Bilirubin (0.2-1.3) mg/dL AST (14-36) U/L ALT (4-34) U/L Alkaline Phosphatase (38-126) U/L Total Protein (6.3-8.2) g/dL Albumin (3.5-5.0) g/dL 06/26/24 06/26/24 06/26/24 Range/Units 15:58 16:57 17:13 WBC (3.8-10.6) k/uL Hgb (11.4-16.0) gm/dL Hct (34.0-46.0) % Plt Count (150-450) k/uL Sodium 132 L (137-145) mmol/L Chloride 111 H (98-107) mmol/L Carbon Dioxide 11 L (22-30) mmol/L Creatinine 0.46 L (0.52-1.04) mg/dL Glucose 264 H (74-99) mg/dL POC Glucose (mg/dL) 253 H 267 H (70-110) mg/dL Hemoglobin A1c (<=6.0) % Calcium 8.0 L (8.4-10.2) mg/dL Phosphorus (2.5-4.5) mg/dL Total Bilirubin 1.7 H (0.2-1.3) mg/dL AST 305 H (14-36) U/L ALT 165 H (4-34) U/L Alkaline Phosphatase 194 H (38-126) U/L Total Protein 6.0 L (6.3-8.2) g/dL Albumin 2.8 L (3.5-5.0) g/dL 06/26/24 06/26/24 06/26/24 Range/Units 18:10 19:03 21:07 WBC (3.8-10.6) k/uL Hgb (11.4-16.0) gm/dL Hct (34.0-46.0) % Plt Count (150-450) k/uL Sodium (137-145) mmol/L Chloride (98-107) mmol/L Carbon Dioxide (22-30) mmol/L Creatinine (0.52-1.04) mg/dL Glucose (74-99) mg/dL POC Glucose (mg/dL) 262 H 243 H 130 H (70-110) mg/dL Hemoglobin A1c (<=6.0) % Calcium (8.4-10.2) mg/dL Phosphorus (2.5-4.5) mg/dL Total Bilirubin (0.2-1.3) mg/dL AST (14-36) U/L ALT (4-34) U/L Alkaline Phosphatase (38-126) U/L Total Protein (6.3-8.2) g/dL Albumin (3.5-5.0) g/dL 06/26/24 06/26/24 06/27/24 Range/Units 22:03 22:59 00:11 WBC (3.8-10.6) k/uL Hgb (11.4-16.0) gm/dL Hct (34.0-46.0) % Plt Count (150-450) k/uL Sodium (137-145) mmol/L Chloride (98-107) mmol/L Carbon Dioxide (22-30) mmol/L Creatinine (0.52-1.04) mg/dL Glucose (74-99) mg/dL POC Glucose (mg/dL) 138 H 163 H 184 H (70-110) mg/dL Hemoglobin A1c (<=6.0) % Calcium (8.4-10.2) mg/dL Phosphorus (2.5-4.5) mg/dL Total Bilirubin (0.2-1.3) mg/dL AST (14-36) U/L ALT (4-34) U/L Alkaline Phosphatase (38-126) U/L Total Protein (6.3-8.2) g/dL Albumin (3.5-5.0) g/dL 06/27/24 06/27/24 06/27/24 Range/Units 01:07 01:51 03:07 WBC (3.8-10.6) k/uL Hgb (11.4-16.0) gm/dL Hct (34.0-46.0) % Plt Count (150-450) k/uL Sodium (137-145) mmol/L Chloride (98-107) mmol/L Carbon Dioxide (22-30) mmol/L Creatinine (0.52-1.04) mg/dL Glucose (74-99) mg/dL POC Glucose (mg/dL) 203 H 229 H 236 H (70-110) mg/dL Hemoglobin A1c (<=6.0) % Calcium (8.4-10.2) mg/dL Phosphorus (2.5-4.5) mg/dL Total Bilirubin (0.2-1.3) mg/dL AST (14-36) U/L ALT (4-34) U/L Alkaline Phosphatase (38-126) U/L Total Protein (6.3-8.2) g/dL Albumin (3.5-5.0) g/dL 06/27/24 06/27/24 06/27/24 Range/Units 04:10 05:11 05:32 WBC (3.8-10.6) k/uL Hgb (11.4-16.0) gm/dL Hct (34.0-46.0) % Plt Count (150-450) k/uL Sodium 133 L (137-145) mmol/L Chloride 110 H (98-107) mmol/L Carbon Dioxide 20 L (22-30) mmol/L Creatinine 0.40 L (0.52-1.04) mg/dL Glucose 239 H (74-99) mg/dL POC Glucose (mg/dL) 239 H 251 H (70-110) mg/dL Hemoglobin A1c (<=6.0) % Calcium 7.8 L (8.4-10.2) mg/dL Phosphorus (2.5-4.5) mg/dL Total Bilirubin 1.8 H (0.2-1.3) mg/dL AST 164 H (14-36) U/L ALT 150 H (4-34) U/L Alkaline Phosphatase 212 H (38-126) U/L Total Protein 5.9 L (6.3-8.2) g/dL Albumin 2.7 L (3.5-5.0) g/dL 06/27/24 06/27/24 06/27/24 Range/Units 05:32 05:32 08:03 WBC 21.3 H (3.8-10.6) k/uL Hgb 10.9 L (11.4-16.0) gm/dL Hct 33.4 L (34.0-46.0) % Plt Count 136 L (150-450) k/uL Sodium (137-145) mmol/L Chloride (98-107) mmol/L Carbon Dioxide (22-30) mmol/L Creatinine (0.52-1.04) mg/dL Glucose (74-99) mg/dL POC Glucose (mg/dL) 293 H (70-110) mg/dL Hemoglobin A1c (<=6.0) % Calcium (8.4-10.2) mg/dL Phosphorus 2.3 L (2.5-4.5) mg/dL Total Bilirubin (0.2-1.3) mg/dL AST (14-36) U/L ALT (4-34) U/L Alkaline Phosphatase (38-126) U/L Total Protein (6.3-8.2) g/dL Albumin (3.5-5.0) g/dL Microbiology - Last 24 Hours (Table) 06/25/24 19:00 Urine Culture - Final Urine,Catheterized 06/25/24 15:35 Blood Culture - Preliminary Blood Assessment and Plan (1) Sepsis Current Visit: Yes Status: Acute Code(s): A41.9 - SEPSIS, UNSPECIFIED ORGANISM SNOMED Code(s): 44248970 (2) Elevated liver enzymes Current Visit: Yes Status: Acute Code(s): R74.8 - ABNORMAL LEVELS OF OTHER SERUM ENZYMES SNOMED Code(s): 886522456 (3) Cholangitis Current Visit: Yes Status: Acute Code(s): K83.09 - OTHER CHOLANGITIS SNOMED Code(s): 17418670 Plan: 1patient presented to hospital with sepsis in this patient was initially hypothermic subsequently did have a fever also have elevated white count as well as tachycardia meeting criteria for SIRS patient has been complaining of pain to right side abdominal area did have elevated liver enzyme concern for possible cholangitis/cholecystitis to be the likely etiology [address] of abdominal pelvis did show some fluid around the gallbladder but no thickening subsequently did have a HIDA scan that was normal 4-patient fever normalized white count is trending down continue with Unasyn while waiting for the culture to finalize Dictation was produced using [employer] dictation software. please excuse any grammatical, word or spelling errors. Time with Patient: Less than 30
[2024-06-27 16:18] LABS: African American GFR (CKD) >90 (>60 ml/min/1.73 sqM); Anion Gap 3 mmol/L; Blood Urea Nitrogen 11 mg/dL (7-17); Calcium 7.8 mg/dL (8.4-10.2); Carbon Dioxide 22 mmol/L (22-30); Chloride 110 mmol/L (98-107); Glucose 96 mg/dL (74-99); Magnesium 1.9 mg/dL (1.6-2.3); Non-African American GFR(CKD) >90 (>60 ml/min/1.73 sqM); Potassium 4.2 mmol/L (3.5-5.1); Sodium 135 mmol/L (137-145)
[2024-06-27 16:23] LABS: Glucose,Whole Blood 115 mg/dL (70-110)
[2024-06-27 19:41] LABS: Glucose,Whole Blood 71 mg/dL (70-110)
[2024-06-27 21:19] LABS: Glucose,Whole Blood 78 mg/dL (70-110)
[2024-06-28 02:54] LABS: Glucose,Whole Blood 98 mg/dL (70-110)
[2024-06-28 06:34] LABS: Glucose,Whole Blood 144 mg/dL (70-110)
[2024-06-28 11:29] LABS: Glucose,Whole Blood 144 mg/dL (70-110)
--- NOTE | 2024-06-28 11:52 | P.PN ---
Subjective Progress Note Date: 06/28/24 Principal diagnosis: Reason for follow-up is fever possible cholangitis Patient is a 44-year-old female with a past medical history significant for diabetes mellitus atrial fibrillation hypothyroidism in this patient has been brought into the hospital for evaluation of mental status changes, patient noted to be in DKA was initially hypothermic subsequent low- grade fever elevated white count prompted this consultation. On today's evaluation that is 06/28/2024, Patient is afebrile patient is currently on room air and denies having any shortness of breath, the patient denies any chest pain or cough, the patient has been complaining of some nausea and reflux but no vomiting no diarrhea. Patient did not have any lab draw today culture have been pending so far Objective - Vital Signs Vital signs: Vital Signs Temp 98.2 F 06/28/24 07:53 Pulse 84 06/28/24 08:54 Resp 19 06/28/24 07:53 BP 101/68 06/28/24 07:53 Pulse Ox 97 06/28/24 07:53 FiO2 Intake & Output 06/27/24 06/28/24 06/28/24 18:59 06:59 18:59 Intake Total 600 800 Output Total 500 Balance 100 800 Intake: IV 500 600 D5-0.45% NaCl with KCl 400 600 20Meq/l 1,000 ml @ 50 mls /hr IV .Q20H [facility] Rx#: [id number] Magnesium Sulfate-D5w Pmx 100 1 gm In Dextrose/Water 1 100ml.bag @ 100 mls/hr IVPB Q1H [facility] Rx#: [id number] Intake, IV Titration 200 Amount Ampicillin-Sulbactam 3 gm 200 In Sodium Chloride 0.9% 100 ml @ 200 mls/hr IVPB Q6HR [facility] Rx#:[id number] Oral 100 Output: Urine 500 Other: Voiding Method Toilet Toilet Toilet # Voids 1 - Exam GENERAL DESCRIPTION: Middle-age female lying in bed in no distress RESPIRATORY SYSTEM: Unlabored breathing , decreased breath sounds at bases HEART: S1 S2 regular rate and rhythm , ABDOMEN: Soft , no tenderness EXTREMITIES: No edema feet - Labs CBC & Chem 7: 06/27/24 05:32 06/27/24 14:36 Labs: Abnormal Lab Results - Last 24 Hours (Table) 06/25/24 06/27/24 06/27/24 Range/Units 15:33 14:19 14:36 Sodium 135 L (137-145) mmol/L Chloride 110 H (98-107) mmol/L Creatinine 0.33 L (0.52-1.04) mg/dL POC Glucose (mg/dL) 177 H (70-110) mg/dL Calcium 7.8 L (8.4-10.2) mg/dL Phosphorus 2.0 L (2.5-4.5) mg/dL TL Antibody >120 H (<5) IU/mL 06/27/24 06/28/24 06/28/24 Range/Units 16:22 06:32 11:27 Sodium (137-145) mmol/L Chloride (98-107) mmol/L Creatinine (0.52-1.04) mg/dL POC Glucose (mg/dL) 115 H 144 H 144 H (70-110) mg/dL Calcium (8.4-10.2) mg/dL Phosphorus (2.5-4.5) mg/dL TL Antibody (<5) IU/mL Microbiology - Last 24 Hours (Table) 06/25/24 15:35 Blood Culture - Preliminary Blood Assessment and Plan (1) Sepsis Current Visit: Yes Status: Acute Code(s): A41.9 - SEPSIS, UNSPECIFIED ORGANISM SNOMED Code(s): 33111418 (2) Elevated liver enzymes Current Visit: Yes Status: Acute Code(s): R74.8 - ABNORMAL LEVELS OF OTHER SERUM ENZYMES SNOMED Code(s): 931199822 (3) Cholangitis Current Visit: Yes Status: Acute Code(s): K83.09 - OTHER CHOLANGITIS SNOMED Code(s): 51065626 Plan: 1patient presented to hospital with sepsis in this patient was initially hypothermic subsequently did have a fever also have elevated white count as well as tachycardia meeting criteria for SIRS patient has been complaining of pain to right side abdominal area did have elevated liver enzyme concern for possible cholangitis/cholecystitis to be the likely etiology [address] of abdominal pelvis did show some fluid around the gallbladder but no thickening subsequently did have a HIDA scan that was normal 4-patient fever has resolved, white count was trending down as of yesterday no CBC available today we will repeat a CBC with a.m. lab continue with Unasyn Dictation was produced using dragon dictation software. please excuse any gra mmatical, word or spelling errors. Time with Patient: Less than 30
--- NOTE | 2024-06-28 13:12 | P.PN ---
Subjective Progress Note Date: 06/28/24 SURGICAL PROGRESS NOTE CHIEF COMPLAINT: DKA HISTORY OF PRESENT ILLNESS: Surgical service following regards to patient's right sided abdominal pain. Patient continues to complain of right side abdominal pain. She does describe the pain is burning and reports the pain is in the throat and epigastric area as well. She is having flatus. No bowel movement. HIDA was normal. She did eat regular diet. No vomiting or nausea. Patient did reports she had relief of the pain with the nausea meds, Pepcid and Ultram. No new labs today PHYSICAL EXAM: VITAL SIGNS: Reviewed. GENERAL: Well-developed in no acute distress. HEENT: No sclera icterus. Extraocular movements grossly intact. Moist buccal mucosa. Head is atraumatic, normocephalic. ABDOMEN: Soft. Nondistended. Tenderness to palpation right upper quadrant right mid abdomen and right lower quadrant NEUROLOGIC: Alert and oriented. Cranial nerves II through XII grossly intact. ASSESSMENT: 1. Right sided abdominal pain. HIDA normal. 2. Elevated LFTs PLAN: -Continue supportive care -Continue empiric antibiotics -Continue regular diet -Repeat labs in a.m. -Further recommendations forthcoming per surgeon Physician Process Assistant note has been reviewed by physician. Signing provider agrees with the documented findings, assessment, and plan of care. I have personally seen and examined the patient, reviewed the [employer] /PAs history, exam and MDM and agree with the assessment and plan as written. Based on total visit time, I have performed more than 50% of the visit. As above: Patient still having pain however she states it is improved. Some nausea today. Continue regular diet. Add Reglan. Recheck labs tomorrow. Continue antibiotics empirically. Objective - Vital Signs Vital signs: Vital Signs Temp 98.2 F 06/28/24 07:53 Pulse 84 06/28/24 12:03 Resp 19 06/28/24 07:53 BP 101/68 06/28/24 07:53 Pulse Ox 97 06/28/24 07:53 FiO2 Intake & Output 06/27/24 06/28/24 06/28/24 18:59 06:59 18:59 Intake Total 600 800 Output Total 500 Balance 100 800 Intake: IV 500 600 D5-0.45% NaCl with KCl 400 600 20Meq/l 1,000 ml @ 50 mls /hr IV .Q20H [facility] Rx#: [id number] Magnesium Sulfate-D5w Pmx 100 1 gm In Dextrose/Water 1 100ml.bag @ 100 mls/hr IVPB Q1H [facility] Rx#: [id number] Intake, IV Titration 200 Amount Ampicillin-Sulbactam 3 gm 200 In Sodium Chloride 0.9% 100 ml @ 200 mls/hr IVPB Q6HR [facility] Rx#:[id number] Oral 100 Output: Urine 500 Other: Voiding Method Toilet Toilet Toilet # Voids 1 - Labs CBC & Chem 7: 06/27/24 05:32 06/27/24 14:36 Labs: Abnormal Lab Results - Last 24 Hours (Table) 06/25/24 06/27/24 06/27/24 Range/Units 15:33 14:19 14:36 Sodium 135 L (137-145) mmol/L Chloride 110 H (98-107) mmol/L Creatinine 0.33 L (0.52-1.04) mg/dL POC Glucose (mg/dL) 177 H (70-110) mg/dL Calcium 7.8 L (8.4-10.2) mg/dL Phosphorus 2.0 L (2.5-4.5) mg/dL TL Antibody >120 H (<5) IU/mL 06/27/24 06/28/24 06/28/24 Range/Units 16:22 06:32 11:27 Sodium (137-145) mmol/L Chloride (98-107) mmol/L Creatinine (0.52-1.04) mg/dL POC Glucose (mg/dL) 115 H 144 H 144 H (70-110) mg/dL Calcium (8.4-10.2) mg/dL Phosphorus (2.5-4.5) mg/dL TL Antibody (<5) IU/mL Microbiology - Last 24 Hours (Table) 06/25/24 15:35 Blood Culture - Preliminary Blood
[2024-06-28 14:03] VITALS: BMI 27.9
[2024-06-28] MEDS ORDERED: CALCIUM CARBONATE 500 MG CHEWABLE PO PRN (14:53)
--- NOTE | 2024-06-28 15:38 | P.PN ---
Subjective Progress Note Date: 06/28/24 This is a 44-year-old female patient was diagnosed having type 1 diabetes and is diagnosed with diabetes approximately a month ago and the patient was receiving a combination of Mounjaro, Farxiga and Lantus insulin 20 units on a daily basis. The family believes that the patient was not taking his insulin although they are not certain. The patient comes into the emergency department with altered mentation and she was in full-blown DKA and at the same time she was severely acidotic with severe lactic acidosis. She was tachycardic and her heart rate was around 150. Initial blood gas showed a pH of 6.9 with a pCO2 of less than 15 and a pO2 of 146 and this was an FiO2 of 21%. Initial blood sugar was 530 and the patient had severe anion gap metabolic acidosis with a serum bicarb of less than 5. The acetone was positive. Lactic acid level was as high as 22. Potassium level was at 5.6. Creatinine was at 1.4. BUN was 16. LFTs are mildly abnormal with an AST of 106, ALT of 68 and alkaline phosphatase of 299. Troponins at 0.08. The white cell count is 25.9 with the most 12.8 and a plate let count of 294. The patient is already received a total of 3 L of IV fluids and the patient is currently on normal saline at 100 cc an hour and insulin drip is running at 7 units an hour. Follow-up blood sugars show some improvement and sugar is currently down to 348. Electrolytes are being monitored very closely. Mentation remains altered. Remains tachycardic. Hemodynamically stable. Chest x-ray shows no acute abnormalities and the CAT scan of the brain also shows no acute abnormalities. 06/26/2024, the patient is being seen for a follow-up. The patient is feeling better compared to yesterday. The patient this morning is on a D5 half-normal saline at a rate of 100 cc an hour. Insulin drip is still running at 3.7 units an hour. There is improvement in the electrolyte imbalance and the patient's most recent electrolytes show a gap of 7 with a serum bicarb of 14. Potassium i s at 4.3. Sodium levels at 130. The blood sugar is currently is at 229.. The patient is less tachycardic. The patient was started on beta-blockers. Overnight the patient was given IV Lopressor and the patient will be started on atenolol today. TSH is suppressed and the patient has history of h yperthyroidism/Graves' disease and Tapazole was restarted. She is awake and alert and communicating. She has received approximately 5 L of IV fluid bolus and the fluid balance is positive. Her cardiac rhythm is sinus and her sinus tachycardia is improved considerably. LFTs are normal and the patient states that she has had abnormal LFTs for a long period of time. No nausea. No emesis. No abdominal pain. No altered mentation. The white cell count remains elevated at 27. No signs of any infection or septicemia and this is likely reactive in nature. The patient remains on room air oxygen. No other significant events overnight. Neurologically, she is awake and alert and communicating. She also states that she has history of alpha-1 antitrypsin disease, MZ phenotype. 06/27/2024, the patient is awake and alert. She started developing some abdominal pain as of yesterday evening. Noted, the patient also had some reactive leukocytosis. LFTs are abnormal. Nevertheless, there are no signs of acute cholecystitis. Ultrasound the gallbladder was done and showed no significant abnormalities. Also, the patient underwent a CAT scan of the abdomen and pelvis and the CAT scan showed some fluid layering in the pelvis and around the gallbladder. However, the gallbladder was not distended and there was no evidence of any gallbladder wall thickening, cholecystitis or Jacqueline lithiasis. Based on that and based on her ongoing abdominal pain, a HIDA scan was ordered. The patient remains on IV Unasyn. Meanwhile, the DKA has recovered. The gap is closed. Serum bicarb is up to 20 and the gap is at 30 and the patient is on D5 half-normal saline at rate of 150 cc an hour. This was will be discontinued and the patient will be transition to long-acting insulin. She will be started on Levemir insulin 21 units daily and NovoLog 7 units with meals. The white cell count is 21, hemoglobin 10.9 and platelet count is at 136. LFTs are elevated although they are improving. The patient's alpha-1 antitrypsin level came back within normal limits 137. Electrolytes are stable. On today's evaluation of 06/28/2024, the patient is awake and alert. Her abdominal pain is somewhat subsided. HIDA scan was negative. General surgery is on the case. No clear cause for her ongoing abdominal pain and nausea. The patient is resting comfortably in bed. She remains on IV Unasyn. She remains on anticoagulation with Xarelto 20 mg p.o. daily. Tolerating her diet. She is currently on Levemir insulin 21 units and NovoLog sliding scale coverage. Rest of the home medications have been resumed. Labs from today are still pending. Most recent blood sugars at 144. Objective - Vital Signs Vital signs: Vital Signs Temp 98.2 F 06/28/24 07:53 Pulse 84 06/28/24 12:03 Resp 19 06/28/24 07:53 BP 101/68 06/28/24 07:53 Pulse Ox 97 06/28/24 07:53 FiO2 Intake & Output 06/27/24 06/28/24 06/28/24 18:59 06:59 18:59 Intake Total 600 800 Output Total 500 Balance 100 800 Intake: IV 500 600 D5-0.45% NaCl with KCl 400 600 20Meq/l 1,000 ml @ 50 mls /hr IV .Q20H [facility] Rx#: [id number] Magnesium Sulfate-D5w Pmx 100 1 gm In Dextrose/Water 1 100ml.bag @ 100 mls/hr IVPB Q1H [facility] Rx#: [id number] Intake, IV Titration 200 Amount Ampicillin-Sulbactam 3 gm 200 In Sodium Chloride 0.9% 100 ml @ 200 mls/hr IVPB Q6HR [facility] Rx#:[id number] Oral 100 Output: Urine 500 Other: Voiding Method Toilet Toilet Toilet # Voids 1 - Exam Vital signs as documented. Awake and alert and communicating Head exam is unremarkable. No scleral icterus or corneal arcus noted. Neck is without jugular venous distension, thyromegaly, or carotid bruits. Carotid upstrokes are brisk bilaterally. Lungs are clear to auscultation and percussion. Cardiac exam reveals the PMI to be normally sized and situated. Rhythm is re gular. First and second heart sounds normal. No murmurs, rubs or gallops. Abdominal exam reveals normal bowel sounds, no masses, no organomegaly and no aortic enlargement. Extremities are nonedematous and both femoral and pedal pulses are normal. Examination of the skin revealed no evidence of significant rashes, suspicious appearing nevi or other concerning lesions. Neurologically, neurologically, the patient is awake and alert and the patient does not have any focal neurological deficit. Cranial nerves are essentially intact. - Labs CBC & Chem 7: 06/27/24 05:32 06/27/24 14:36 Labs: Abnormal Lab Results - Last 24 Hours (Table) 06/25/24 06/27/24 06/27/24 Range/Units 15:33 14:19 14:36 Sodium 135 L (137-145) mmol/L Chloride 110 H (98-107) mmol/L Creatinine 0.33 L (0.52-1.04) mg/dL POC Glucose (mg/dL) 177 H (70-110) mg/dL Calcium 7.8 L (8.4-10.2) mg/dL Phosphorus 2.0 L (2.5-4.5) mg/dL TL Antibody >120 H (<5) IU/mL 06/27/24 06/28/24 06/28/24 Range/Units 16:22 06:32 11:27 Sodium (137-145) mmol/L Chloride (98-107) mmol/L Creatinine (0.52-1.04) mg/dL POC Glucose (mg/dL) 115 H 144 H 144 H (70-110) mg/dL Calcium (8.4-10.2) mg/dL Phosphorus (2.5-4.5) mg/dL TL Antibody (<5) IU/mL Microbiology - Last 24 Hours (Table) 06/25/24 15:35 Blood Culture - Preliminary Blood Assessment and Plan Plan: DKA with severe anion gap metabolic acidosis, recovered Abdominal pain, negative ultrasound of the abdomen, negative CAT scan of the abdomen, LFTs are elevated, prior related to chronic fatty liver. Abdominal pain is still being further investigated. Rule out diabetic gastroparesis. HIDA scan was negative mental status is back to normal Acute altered mentation secondary to above, CAT scan of the brain is negative. Neurologic exam is nonfocal. Type 1 diabetes mellitus maintained on a combination of Farxiga, Mounjaro and Lantus insulin on outpatient basis. Blood sugar control has been poor on outpatient basis. Noted the patient was switched to a insulin pump and the pump was not functioning appropriately which probably put this patient to DKA. She has not been taking her Lantus insulin. Sinus tachycardia, most likely secondary to dehydration. She also has hyperthyroidism which could be contributing to her sinus tachycardia, recovered and the sinus tachycardia has recovered Severe dehydration, improved Leukocytosis, likely reactive. No signs of any infection or septicemia at this point in time. The patient is on Unasyn and the white cell count is also improving. Troponin leak, likely type II ischemia Mild transaminitis LFTs are still elevated. Graves disease Hyperthyroidism, maintained on Tapazole an outpatient basis and the patient's free T4 is slightly elevated and the patient is currently on beta- blockers History of atrial fibrillation, current rhythm is sinus. alpha 1 AT deficiency, MZ, alpha-1 levels are within normal limits. Plan Continue Levemir and insulin at 21 units and NovoLog 7 units with meals Monitor electrolytes Electrolytes have improved Check amylase and lipase and CPK are within normal limits Lactic acid level normalized Check test was negative Alpha-1 antitrypsin levels are within normal limits Room air oxygen Continue Tapazole Restart atenolol Restart anticoagulation with Eliquis for history of atrial fibrillation HIDA scan was negative Continue IV Unasyn consider diabetic gastroparesis and start the patient on Reglan Monitor the white cell count Hepatitis profile within normal limits Will continue to follow
[2024-06-28 16:47] LABS: Glucose,Whole Blood 142 mg/dL (70-110)
[2024-06-28 17:32] LABS: Basophils % (A) 0 %; Eosinophils # (A) 0.1 k/uL (0-0.7); Eosinophils % (A) 1 %; HCT 31.1 % (34.0-46.0); HGB 10.3 gm/dL (11.4-16.0); Lymphocytes # (A) 2.2 k/uL (1.0-4.8); Lymphocytes % (A) 21 %; MCH 27.9 pg (25.0-35.0); MCV 84.4 fL (80.0-100.0); Mean Platelet Volume 10.4; Monocytes # (A) 0.7 k/uL (0-1.0); Monocytes % (A) 7 %; Neutrophils % (A) 67 %; Platelet Count 134 k/uL (150-450); RBC 3.68 m/uL (3.80-5.40); RDW 14.8 % (11.5-15.5); WBC 10.5 k/uL (3.8-10.6)
[2024-06-28 17:52] LABS: ALT 71 U/L (4-34); AST 50 U/L (14-36); African American GFR (CKD) >90 (>60 ml/min/1.73 sqM); Albumin 2.6 g/dL (3.5-5.0); Albumin/Globulin Ratio 0.9; Alkaline Phosphatase 281 U/L (38-126); Anion Gap 5 mmol/L; Blood Urea Nitrogen 9 mg/dL (7-17); Calcium 7.4 mg/dL (8.4-10.2); Carbon Dioxide 19 mmol/L (22-30); Chloride 110 mmol/L (98-107); Glucose 100 mg/dL (74-99); Non-African American GFR(CKD) >90 (>60 ml/min/1.73 sqM); Potassium 4.3 mmol/L (3.5-5.1); Sodium 134 mmol/L (137-145); Total Bilirubin 1.5 mg/dL (0.2-1.3); Total Protein 5.6 g/dL (6.3-8.2)
--- NOTE | 2024-06-28 19:12 | CT ---
EXAMINATION TYPE: CT chest wo con DATE OF EXAM: 06/28/2024 6:33 PM COMPARISON: CT 10/23/2020. CLINICAL INDICATION: Female, 44 years old with history of cap rll; PHH, CAP RLL. TECHNIQUE: Multiple axial images were obtained through the chest. Sagittal and coronal reformats were created for review. MIP was performed on a separate workstation. Contrast used: mL of (None if empty) Oral contrast used: (None if empty) CT DLP: 292.5 mGycm, Automated exposure control for dose reduction was used. FINDINGS: LUNGS/ PLEURA: Airspace opacities versus atelectasis in the right lower lobe near the elevated right diaphragm and pleural fusion. Small bilateral pleural effusions. Splenic parenchyma. No airspace cons olidation or pneumothorax. AIRWAY: Patent and unremarkable. HEART: The heart is mildly increased in size.. MEDIASTINUM: No gross evidence of adenopathy. VASCULATURE: No aortic aneurysm. MUSCULOSKELETAL: No acute osseous abnormalities SOFT TISSUES/LYMPH NODES: Unremarkable. LOWER NECK: No significant findings. UPPER ABDOMEN: Areas of low attenuation throughout the spleen parenchyma similar to 2020 exam. Layeri ng high density seen within the gallbladder lumen compatible with vicarious excretion of contrast. IMPRESSION: 1. Right lower lobe atelectasis versus pneumonia. Atelectasis is favored given elevated diaphragm. 2. Small bilateral pleural effusions with cardiomegaly. Correlate with serum BNP. 3. No evidence for focal airspace consolidation. 4. Vicarious excretion in the gallbladder lumen. Follow up recommendations for incidental pulmonary nodules, if there are any, are per [employer] or [employer]. https://radiopaedia.org/articles/fuqgqbzlux-uvvjvil-afohnnftg-ezxjst-iehhxwiehvvdhrj-[email or web address]?lang=us [facility], , 06/28/2024 7:10 PM
[2024-06-28 20:57] LABS: Glucose,Whole Blood 120 mg/dL (70-110)
[2024-06-29 01:58] LABS: Glucose,Whole Blood 197 mg/dL (70-110)
[2024-06-29 06:47] LABS: Glucose,Whole Blood 256 mg/dL (70-110)
--- NOTE | 2024-06-29 10:41 | P.PN ---
Subjective Progress Note Date: 06/29/24 Principal diagnosis: Abdominal pain Patient says she is comfortable for the most part. Her upper abdominal nausea and reflux symptoms are aggravated by eating. Because of that her appetite is somewhat diminished. No vomiting. Mild nausea. Last bowel movement last Monday. She is passing flatus. Her right sided abdominal pain persist with increased movement. Labs today are pending. Objective - Vital Signs Vital signs: Vital Signs Temp 97.8 F 06/29/24 07:13 Pulse 76 06/29/24 09:06 Resp 18 06/29/24 07:13 BP 119/75 06/29/24 07:13 Pulse Ox 94 L 06/29/24 08:57 FiO2 Intake & Output 06/28/24 06/29/24 06/29/24 18:59 06:59 18:59 Weight 71.6 kg Other: Voiding Method Toilet Toilet # Voids 3 - Exam Abdomen: Soft, nondistended, mild right lower quadrant tenderness, no rebound or guarding - Labs CBC & Chem 7: 06/28/24 17:00 06/28/24 17:00 Labs: Abnormal Lab Results - Last 24 Hours (Table) 06/28/24 06/28/24 06/28/24 Range/Units 11:27 16:46 17:00 RBC 3.68 L (3.80-5.40) m/uL Hgb 10.3 L (11.4-16.0) gm/dL Hct 31.1 L (34.0-46.0) % Plt Count 134 L (150-450) k/uL Sodium (137-145) mmol/L Chloride (98-107) mmol/L Carbon Dioxide (22-30) mmol/L Creatinine (0.52-1.04) mg/dL Glucose (74-99) mg/dL POC Glucose (mg/dL) 144 H 142 H (70-110) mg/dL Calcium (8.4-10.2) mg/dL Total Bilirubin (0.2-1.3) mg/dL AST (14-36) U/L ALT (4-34) U/L Alkaline Phosphatase (38-126) U/L Total Protein (6.3-8.2) g/dL Albumin (3.5-5.0) g/dL 06/28/24 06/28/24 06/29/24 Range/Units 17:00 20:55 01:56 RBC (3.80-5.40) m/uL Hgb (11.4-16.0) gm/dL Hct (34.0-46.0) % Plt Count (150-450) k/uL Sodium 134 L (137-145) mmol/L Chloride 110 H (98-107) mmol/L Carbon Dioxide 19 L (22-30) mmol/L Creatinine 0.34 L (0.52-1.04) mg/dL Glucose 100 H (74-99) mg/dL POC Glucose (mg/dL) 120 H 197 H (70-110) mg/dL Calcium 7.4 L (8.4-10.2) mg/dL Total Bilirubin 1.5 H (0.2-1.3) mg/dL AST 50 H (14-36) U/L ALT 71 H (4-34) U/L Alkaline Phosphatase 281 H (38-126) U/L Total Protein 5.6 L (6.3-8.2) g/dL Albumin 2.6 L (3.5-5.0) g/dL 06/29/24 Range/Units 06:46 RBC (3.80-5.40) m/uL Hgb (11.4-16.0) gm/dL Hct (34.0-46.0) % Plt Count (150-450) k/uL Sodium (137-145) mmol/L Chloride (98-107) mmol/L Carbon Dioxide (22-30) mmol/L Creatinine (0.52-1.04) mg/dL Glucose (74-99) mg/dL POC Glucose (mg/dL) 256 H (70-110) mg/dL Calcium (8.4-10.2) mg/dL Total Bilirubin (0.2-1.3) mg/dL AST (14-36) U/L ALT (4-34) U/L Alkaline Phosphatase (38-126) U/L Total Protein (6.3-8.2) g/dL Albumin (3.5-5.0) g/dL Microbiology - Last 24 Hours (Table) 06/25/24 15:35 Blood Culture - Preliminary Blood Assessment and Plan (1) Abdominal pain Narrative/Plan: 44-year-old female with abdominal discomforts right side abdomen. Began in right lower quadrant. Etiology remains unclear. Could partially on the basis of acute DKA. Continue regular diet for now. Add Carafate and Reglan for upper GI symptoms. If right sided pain persist will repeat CT abdomen pelvis with oral and IV contrast. Current Visit: Yes Status: Acute Code(s): R10.9 - UNSPECIFIED ABDOMINAL PAIN SNOMED Code(s): 04654220
[2024-06-29 11:22] LABS: Basophils # (A) 0.02 X 10*3/uL (0.00-0.10); Basophils % (A) 0.2 %; Eosinophils # (A) 0.28 X 10*3/uL (0.04-0.35); Eosinophils % (A) 2.8 %; HCT 28.5 % (37.2-46.3); HGB 9.3 g/dL (12.0-15.0); Lymphocytes # (A) 2.44 X 10*3/uL (0.90-5.00); Lymphocytes % (A) 24.8 %; MCHC 32.6 g/dL (32.0-37.0); MCV 82.8 FL (80.0-97.0); Mean Platelet Volume 12.4 FL (9.5-12.2); Monocytes # (A) 1.22 X 10*3/uL (0.20-1.00); Monocytes % (A) 12.4 %; NRBC Per 100 WBC 0.04 X 10*3/uL (0.00-0.01); Neutrophils # (A) 5.84 X 10*3/uL (1.80-7.70); Neutrophils % (A) 59.4 %; Platelet Count 145 X 10*3/uL (140-440); RBC 3.44 X 10*6/uL (4.10-5.20); RDW 15.6 % (11.5-14.5); WBC 9.84 X 10*3/uL (4.50-10.00)
[2024-06-29 11:32] LABS: Glucose,Whole Blood 92 mg/dL (70-110)
--- NOTE | 2024-06-29 11:35 | PN ---
PROGRESS NOTE SUBJECTIVE: A 44-year-old white female, who was admitted for a severe DKA. HIDA scan was normal. Elevated LFTs. Supportive care. Empiric antibiotics for cholangitis are improving. The patient is on regular diet. Repeat labs in the morning. Continue current treatment. She feels to be doing better. Her abdominal pain is continuous in the right upper abdomen. No nausea or vomiting. Further recommendations per Surgery as far as abdominal pain. I ordered a chest CT due to possible atelectasis versus pneumonia, which shows right lower lobe atelectasis versus pneumonia, small bilateral pleural effusions, cardiomegaly. Suspect she came in for right lower lobe pneumonia. She has pulmonary nodules also. Prognosis is guarded. We will follow up as an outpatient. Continue to treat for pneumonia and status post possible cholangitis at this time. MMODL / IJN: [id number] /
[2024-06-29] MEDS: AZITHROMYCIN 500 MG in SODIUM CHLORIDE 0.9% 250 ML IVPB SCH (11:48)
[2024-06-29 13:07] LABS: ALT 59 U/L (8-44); AST 39 U/L (13-35); Albumin 2.6 g/dL (3.8-4.9); Alkaline Phosphatase 286 U/L (41-126); Blood Urea Nitrogen 7.6 mg/dL (9.0-27.0); Calcium 7.5 mg/dL (8.7-10.3); Carbon Dioxide 21.1 mmol/L (21.6-31.8); Chloride 106 mmol/L (96-109); Globulin 2.6 g/dL (1.6-3.3); Glucose 237 mg/dL (70-110); Sodium 134 mmol/L (135-145); Total Protein 5.2 g/dL (6.2-8.2)
[2024-06-29] MEDS: SUCRALFATE 1 GM TAB PO SCH (13:14)
[2024-06-29] MEDS: METOCLOPRAMIDE 5 MG/ML 2 ML VIAL IVP SCH (13:14)
[2024-06-29 13:35] LABS: Glucose,Whole Blood 64 mg/dL (70-110)
[2024-06-29 14:04] LABS: Glucose,Whole Blood 113 mg/dL (70-110)
--- NOTE | 2024-06-29 14:17 | P.PN ---
Subjective Progress Note Date: 06/29/24 Principal diagnosis: Reason for follow-up is fever possible cholangitis Patient is a 44-year-old female with a past medical history significant for diabetes mellitus atrial fibrillation hypothyroidism in this patient has been brought into the hospital for evaluation of mental status changes, patient noted to be in DKA was initially hypothermic subsequent low- grade fever elevated white count prompted this consultation. On today's evaluation that is 06/29/2024, patient has been afebrile, patient is breathing comfortably and is currently on room air, patient denies having any significant cough no chest pain, patient still complaining some epigastric discomfort and nausea but no vomiting no diarrhea. Patient white count normalized to 9.84 and a creatinine 0.4 culture has been negative so far Objective - Vital Signs Vital signs: Vital Signs Temp 97.9 F 06/29/24 13:31 Pulse 80 06/29/24 13:31 Resp 18 06/29/24 13:31 BP 130/83 06/29/24 13:31 Pulse Ox 100 06/29/24 13:31 FiO2 Intake & Output 06/28/24 06/29/24 06/29/24 18:59 06:59 18:59 Weight 71.6 kg Other: Voiding Method Toilet Toilet # Voids 3 1 - Exam GENERAL DESCRIPTION: Middle-age female lying in bed in no distress RESPIRATORY SYSTEM: Unlabored breathing , decreased breath sounds at bases HEART: S1 S2 regular rate and rhythm , ABDOMEN: Soft , no tenderness EXTREMITIES: No edema feet - Labs CBC & Chem 7: 06/29/24 04:15 06/29/24 04:15 Labs: Abnormal Lab Results - Last 24 Hours (Table) 06/28/24 06/28/24 06/28/24 Range/Units 16:46 17:00 17:00 RBC 3.68 L (3.80-5.40) m/uL Hgb 10.3 L (11.4-16.0) gm/dL Hct 31.1 L (34.0-46.0) % RDW (11.5-14.5) % Plt Count 134 L (150-450) k/uL MPV (9.5-12.2) FL Monocytes # (0.20-1.00) X 10*3/uL NRBC/100 WBC Diff (0.00-0.01) X 10*3/uL Sodium 134 L (137-145) mmol/L Chloride 110 H (98-107) mmol/L Carbon Dioxide 19 L (22-30) mmol/L BUN (9.0-27.0) mg/dL Creatinine 0.34 L (0.52-1.04) mg/dL Glucose 100 H (74-99) mg/dL POC Glucose (mg/dL) 142 H (70-110) mg/dL Calcium 7.4 L (8.4-10.2) mg/dL Total Bilirubin 1.5 H (0.2-1.3) mg/dL AST 50 H (14-36) U/L ALT 71 H (4-34) U/L Alkaline Phosphatase 281 H (38-126) U/L C-Reactive Protein (0.00-0.80) mg/dL Total Protein 5.6 L (6.3-8.2) g/dL Albumin 2.6 L (3.5-5.0) g/dL Albumin/Globulin Ratio (1.60-3.17) Ratio 06/28/24 06/29/24 06/29/24 Range/Units 20:55 01:56 04:15 RBC (3.80-5.40) m/uL Hgb (11.4-16.0) gm/dL Hct (34.0-46.0) % RDW (11.5-14.5) % Plt Count (150-450) k/uL MPV (9.5-12.2) FL Monocytes # (0.20-1.00) X 10*3/uL NRBC/100 WBC Diff (0.00-0.01) X 10*3/uL Sodium 134 L (137-145) mmol/L Chloride (98-107) mmol/L Carbon Dioxide 21.1 L (22-30) mmol/L BUN 7.6 L (9.0-27.0) mg/dL Creatinine 0.4 L (0.52-1.04) mg/dL Glucose 237 H (74-99) mg/dL POC Glucose (mg/dL) 120 H 197 H (70-110) mg/dL Calcium 7.5 L (8.4-10.2) mg/dL Total Bilirubin (0.2-1.3) mg/dL AST 39 H (14-36) U/L ALT 59 H (4-34) U/L Alkaline Phosphatase 286 H (38-126) U/L C-Reactive Protein 4.90 H (0.00-0.80) mg/dL Total Protein 5.2 L (6.3-8.2) g/dL Albumin 2.6 L (3.5-5.0) g/dL Albumin/Globulin Ratio 1.00 L (1.60-3.17) Ratio 06/29/24 06/29/24 06/29/24 Range/Units 04:15 06:46 13:34 RBC 3.44 L (3.80-5.40) m/uL Hgb 9.3 L (11.4-16.0) gm/dL Hct 28.5 L (34.0-46.0) % RDW 15.6 H (11.5-14.5) % Plt Count (150-450) k/uL MPV 12.4 H (9.5-12.2) FL Monocytes # 1.22 H (0.20-1.00) X 10*3/uL NRBC/100 WBC Diff 0.04 H (0.00-0.01) X 10*3/uL Sodium (137-145) mmol/L Chloride (98-107) mmol/L Carbon Dioxide (22-30) mmol/L BUN (9.0-27.0) mg/dL Creatinine (0.52-1.04) mg/dL Glucose (74-99) mg/dL POC Glucose (mg/dL) 256 H 64 L (70-110) mg/dL Calcium (8.4-10.2) mg/dL Total Bilirubin (0.2-1.3) mg/dL AST (14-36) U/L ALT (4-34) U/L Alkaline Phosphatase (38-126) U/L C-Reactive Protein (0.00-0.80) mg/dL Total Protein (6.3-8.2) g/dL Albumin (3.5-5.0) g/dL Albumin/Globulin Ratio (1.60-3.17) Ratio 06/29/24 Range/Units 14:03 RBC (3.80-5.40) m/uL Hgb (11.4-16.0) gm/dL Hct (34.0-46.0) % RDW (11.5-14.5) % Plt Count (150-450) k/uL MPV (9.5-12.2) FL Monocytes # (0.20-1.00) X 10*3/uL NRBC/100 WBC Diff (0.00-0.01) X 10*3/uL Sodium (137-145) mmol/L Chloride (98-107) mmol/L Carbon Dioxide (22-30) mmol/L BUN (9.0-27.0) mg/dL Creatinine (0.52-1.04) mg/dL Glucose (74-99) mg/dL POC Glucose (mg/dL) 113 H (70-110) mg/dL Calcium (8.4-10.2) mg/dL Total Bilirubin (0.2-1.3) mg/dL AST (14-36) U/L ALT (4-34) U/L Alkaline Phosphatase (38-126) U/L C-Reactive Protein (0.00-0.80) mg/dL Total Protein (6.3-8.2) g/dL Albumin (3.5-5.0) g/dL Albumin/Globulin Ratio (1.60-3.17) Ratio Microbiology - Last 24 Hours (Table) 06/25/24 15:35 Blood Culture - Preliminary Blood Assessment and Plan (1) Sepsis Current Visit: Yes Status: Acute Code(s): A41.9 - SEPSIS, UNSPECIFIED ORGANISM SNOMED Code(s): 10744501 (2) Elevated liver enzymes Current Visit: Yes Status: Acute Code(s): R74.8 - ABNORMAL LEVELS OF OTHER SERUM ENZYMES SNOMED Code(s): 847279066 (3) Cholangitis Current Visit: Yes Status: Acute Code(s): K83.09 - OTHER CHOLANGITIS SNOMED Code(s): 55536042 Plan: 1patient presented to hospital with sepsis in this patient was initially hypothermic subsequently did have a fever also have elevated white count as well as tachycardia meeting criteria for SIRS patient has been complaining of pain to right side abdominal area did have elevated liver enzyme concern for possible cholangitis/cholecystitis to be the likely etiology [address] of abdominal pelvis did show some fluid around the gallbladder but no thickening subsequently did have a HIDA scan that was normal 4-patient fever has resolved, and the patient white count has normalized we will continue the patient on Unasyn while inpatient transition to oral Augmentin on discharge Dictation was produced using [employer] dictation software. please excuse any grammatical, word or spelling errors. Time with Patient: Less than 30
--- NOTE | 2024-06-29 15:22 | P.PN ---
Subjective Progress Note Date: 06/29/24 This is a 44-year-old female patient was diagnosed having type 1 diabetes and is diagnosed with diabetes approximately a month ago and the patient was receiving a combination of Mounjaro, Farxiga and Lantus insulin 20 units on a daily basis. The family believes that the patient was not taking his insulin although they are not certain. The patient comes into the emergency department with altered mentation and she was in full-blown DKA and at the same time she was severely acidotic with severe lactic acidosis. She was tachycardic and her heart rate was around 150. Initial blood gas showed a pH of 6.9 with a pCO2 of less than 15 and a pO2 of 146 and this was an FiO2 of 21%. Initial blood sugar was 530 and the patient had severe anion gap metabolic acidosis with a serum bicarb of less than 5. The acetone was positive. Lactic acid level was as high as 22. Potassium level was at 5.6. Creatinine was at 1.4. BUN was 16. LFTs are mildly abnormal with an AST of 106, ALT of 68 and alkaline phosphatase of 299. Troponins at 0.08. The white cell count is 25.9 with the most 12.8 and a plate let count of 294. The patient is already received a total of 3 L of IV fluids and the patient is currently on normal saline at 100 cc an hour and insulin drip is running at 7 units an hour. Follow-up blood sugars show some improvement and sugar is currently down to 348. Electrolytes are being monitored very closely. Mentation remains altered. Remains tachycardic. Hemodynamically stable. Chest x-ray shows no acute abnormalities and the CAT scan of the brain also shows no acute abnormalities. 06/26/2024, the patient is being seen for a follow-up. The patient is feeling better compared to yesterday. The patient this morning is on a D5 half-normal saline at a rate of 100 cc an hour. Insulin drip is still running at 3.7 units an hour. There is improvement in the electrolyte imbalance and the patient's most recent electrolytes show a gap of 7 with a serum bicarb of 14. Potassium i s at 4.3. Sodium levels at 130. The blood sugar is currently is at 229.. The patient is less tachycardic. The patient was started on beta-blockers. Overnight the patient was given IV Lopressor and the patient will be started on atenolol today. TSH is suppressed and the patient has history of h yperthyroidism/Graves' disease and Tapazole was restarted. She is awake and alert and communicating. She has received approximately 5 L of IV fluid bolus and the fluid balance is positive. Her cardiac rhythm is sinus and her sinus tachycardia is improved considerably. LFTs are normal and the patient states that she has had abnormal LFTs for a long period of time. No nausea. No emesis. No abdominal pain. No altered mentation. The white cell count remains elevated at 27. No signs of any infection or septicemia and this is likely reactive in nature. The patient remains on room air oxygen. No other significant events overnight. Neurologically, she is awake and alert and communicating. She also states that she has history of alpha-1 antitrypsin disease, MZ phenotype. 06/27/2024, the patient is awake and alert. She started developing some abdominal pain as of yesterday evening. Noted, the patient also had some reactive leukocytosis. LFTs are abnormal. Nevertheless, there are no signs of acute cholecystitis. Ultrasound the gallbladder was done and showed no significant abnormalities. Also, the patient underwent a CAT scan of the abdomen and pelvis and the CAT scan showed some fluid layering in the pelvis and around the gallbladder. However, the gallbladder was not distended and there was no evidence of any gallbladder wall thickening, cholecystitis or Jacqueline lithiasis. Based on that and based on her ongoing abdominal pain, a HIDA scan was ordered. The patient remains on IV Unasyn. Meanwhile, the DKA has recovered. The gap is closed. Serum bicarb is up to 20 and the gap is at 30 and the patient is on D5 half-normal saline at rate of 150 cc an hour. This was will be discontinued and the patient will be transition to long-acting insulin. She will be started on Levemir insulin 21 units daily and NovoLog 7 units with meals. The white cell count is 21, hemoglobin 10.9 and platelet count is at 136. LFTs are elevated although they are improving. The patient's alpha-1 antitrypsin level came back within normal limits 137. Electrolytes are stable. On today's evaluation of 06/28/2024, the patient is awake and alert. Her abdominal pain is somewhat subsided. HIDA scan was negative. General surgery is on the case. No clear cause for her ongoing abdominal pain and nausea. The patient is resting comfortably in bed. She remains on IV Unasyn. She remains on anticoagulation with Xarelto 20 mg p.o. daily. Tolerating her diet. She is currently on Levemir insulin 21 units and NovoLog sliding scale coverage. Rest of the home medications have been resumed. Labs from today are still pending. Most recent blood sugars at 144. 06/29/2024, the patient is awake and alert. Abdominal pain is still present although subsided and the patient is tolerating clear liquid diet. The blood work shows adequate blood sugar control. The gap is currently at 6 with a serum bicarb of 21. The white cell count is at 9.8 with hemoglobin 9.3 and a platelet count of 145. The patient is afebrile. The patient is currently on IV Unasyn and Zithromax as empiric antibiotic coverage. The patient is also receiving Levemir insulin 21 units along with NovoLog 7 units with meals and a sliding scale coverage. She is on PPI. She is on Carafate. She is on Zofran for nausea. General surgery is on the case. As stated, the patient is more comfortable. Abdominal pain persist. She is having bowel movements. Objective - Vital Signs Vital signs: Vital Signs Temp 97.8 F 06/29/24 07:13 Pulse 72 06/29/24 12:16 Resp 18 06/29/24 07:13 BP 119/75 06/29/24 07:13 Pulse Ox 94 L 06/29/24 08:57 FiO2 Intake & Output 06/28/24 06/29/24 06/29/24 18:59 06:59 18:59 Weight 71.6 kg Other: Voiding Method Toilet Toilet # Voids 3 1 - Exam Vital signs as documented. Awake and alert and communicating Head exam is unremarkable. No scleral icterus or corneal arcus noted. Neck is without jugular venous distension, thyromegaly, or carotid bruits. Carotid upstrokes are brisk bilaterally. Lungs are clear to auscultation and percussion. Cardiac exam reveals the PMI to be normally sized and situated. Rhythm is regular. First and second heart sounds normal. No murmurs, rubs or gallops. Abdominal exam reveals normal bowel sounds, no masses, no organomegaly and no aortic enlargement. Extremities are nonedematous and both femoral and pedal pulses are normal. Examination of the skin revealed no evidence of significant rashes, suspicious appearing nevi or other concerning lesions. Neurologically, neurologically, the patient is awake and alert and the patient does not have any focal neurological deficit. Cranial nerves are essentially intact. - Labs CBC & Chem 7: 06/29/24 04:15 06/29/24 04:15 Labs: Abnormal Lab Results - Last 24 Hours (Table) 06/28/24 06/28/24 06/28/24 Range/Units 16:46 17:00 17:00 RBC 3.68 L (3.80-5.40) m/uL Hgb 10.3 L (11.4-16.0) gm/dL Hct 31.1 L (34.0-46.0) % RDW (11.5-14.5) % Plt Count 134 L (150-450) k/uL MPV (9.5-12.2) FL Monocytes # (0.20-1.00) X 10*3/uL NRBC/100 WBC Diff (0.00-0.01) X 10*3/uL Sodium 134 L (137-145) mmol/L Chloride 110 H (98-107) mmol/L Carbon Dioxide 19 L (22-30) mmol/L Creatinine 0.34 L (0.52-1.04) mg/dL Glucose 100 H (74-99) mg/dL POC Glucose (mg/dL) 142 H (70-110) mg/dL Calcium 7.4 L (8.4-10.2) mg/dL Total Bilirubin 1.5 H (0.2-1.3) mg/dL AST 50 H (14-36) U/L ALT 71 H (4-34) U/L Alkaline Phosphatase 281 H (38-126) U/L Total Protein 5.6 L (6.3-8.2) g/dL Albumin 2.6 L (3.5-5.0) g/dL 06/28/24 06/29/24 06/29/24 Range/Units 20:55 01:56 04:15 RBC 3.44 L (3.80-5.40) m/uL Hgb 9.3 L (11.4-16.0) gm/dL Hct 28.5 L (34.0-46.0) % RDW 15.6 H (11.5-14.5) % Plt Count (150-450) k/uL MPV 12.4 H (9.5-12.2) FL Monocytes # 1.22 H (0.20-1.00) X 10*3/uL NRBC/100 WBC Diff 0.04 H (0.00-0.01) X 10*3/uL Sodium (137-145) mmol/L Chloride (98-107) mmol/L Carbon Dioxide (22-30) mmol/L Creatinine (0.52-1.04) mg/dL Glucose (74-99) mg/dL POC Glucose (mg/dL) 120 H 197 H (70-110) mg/dL Calcium (8.4-10.2) mg/dL Total Bilirubin (0.2-1.3) mg/dL AST (14-36) U/L ALT (4-34) U/L Alkaline Phosphatase (38-126) U/L Total Protein (6.3-8.2) g/dL Albumin (3.5-5.0) g/dL 06/29/24 Range/Units 06:46 RBC (3.80-5.40) m/uL Hgb (11.4-16.0) gm/dL Hct (34.0-46.0) % RDW (11.5-14.5) % Plt Count (150-450) k/uL MPV (9.5-12.2) FL Monocytes # (0.20-1.00) X 10*3/uL NRBC/100 WBC Diff (0.00-0.01) X 10*3/uL Sodium (137-145) mmol/L Chloride (98-107) mmol/L Carbon Dioxide (22-30) mmol/L Creatinine (0.52-1.04) mg/dL Glucose (74-99) mg/dL POC Glucose (mg/dL) 256 H (70-110) mg/dL Calcium (8.4-10.2) mg/dL Total Bilirubin (0.2-1.3) mg/dL AST (14-36) U/L ALT (4-34) U/L Alkaline Phosphatase (38-126) U/L Total Protein (6.3-8.2) g/dL Albumin (3.5-5.0) g/dL Microbiology - Last 24 Hours (Table) 06/25/24 15:35 Blood Culture - Preliminary Blood Assessment and Plan Plan: DKA with severe anion gap metabolic acidosis, recovered Abdominal pain, negative ultrasound of the abdomen, negative CAT scan of the abdomen, LFTs are elevated, prior related to chronic fatty liver. Abdominal pain is still being further investigated. Rule out diabetic gastroparesis. HIDA scan was negative mental status is back to normal Acute altered mentation secondary to above, CAT scan of the brain is negative. Neurologic exam is nonfocal. Type 1 diabetes mellitus maintained on a combination of Farxiga, Mounjaro and Lantus insulin on outpatient basis. Blood sugar control has been poor on outpatient basis. Noted the patient was switched to a insulin pump and the pump was not functioning appropriately which probably put this patient to DKA. She has not been taking her Lantus insulin. Sinus tachycardia, most likely secondary to dehydration. She also has hyperthyroidism which could be contributing to her sinus tachycardia, recovered and the sinus tachycardia has recovered Severe dehydration, improved Leukocytosis, likely reactive. No signs of any infection or septicemia at this point in time. The patient is on Unasyn and the white cell count is also improving. Troponin leak, likely type II ischemia Mild transaminitis LFTs are still elevated. Graves disease Hyperthyroidism, maintained on Tapazole an outpatient basis and the patient's free T4 is slightly elevated and the patient is currently on beta- blockers History of atrial fibrillation, current rhythm is sinus. alpha 1 AT deficiency, MZ, alpha-1 levels are within normal limits. Plan Continue Levemir and insulin at 21 units and NovoLog 7 units with meals Gap is closed Check amylase and lipase and CPK are within normal limits Lactic acid level normalized Check test was negative Alpha-1 antitrypsin levels are within normal limits Room air oxygen Continue Tapazole Continue atenolol Continue anticoagulation with Eliquis for history of atrial fibrillation HIDA scan was negative Continue IV Unasyn consider diabetic gastroparesis and start the patient on Reglan, Carafate and PPI Monitor the white cell count, and the white cell count is improved Hepatitis profile within normal limits Will continue to follow
[2024-06-29 16:45] LABS: Glucose,Whole Blood 152 mg/dL (70-110)
[2024-06-29 22:07] LABS: Glucose,Whole Blood 218 mg/dL (70-110)
[2024-06-29 23:56] LABS: Glucose,Whole Blood 51 mg/dL (70-110)
[2024-06-30] MEDS: DEXTROSE 50% SYRINGE 50 ML IVP PRN (00:05)
[2024-06-30 00:46] LABS: Glucose,Whole Blood 144 mg/dL (70-110)
[2024-06-30 06:15] LABS: Glucose,Whole Blood 181 mg/dL (70-110)
[2024-06-30 09:09] LABS: Basophils % (A) 0 %; Eosinophils # (A) 0.4 k/uL (0-0.7); Eosinophils % (A) 5 %; HCT 30.7 % (34.0-46.0); HGB 9.9 gm/dL (11.4-16.0); Hypochromasia Slight; Lymphocytes # (A) 1.7 k/uL (1.0-4.8); Lymphocytes % (A) 22 %; MCH 27.6 pg (25.0-35.0); MCHC 32.3 g/dL (31.0-37.0); MCV 85.4 fL (80.0-100.0); Mean Platelet Volume 9.8; Monocytes # (A) 0.6 k/uL (0-1.0); Monocytes % (A) 8 %; Neutrophils # (A) 4.8 k/uL (1.3-7.7); Neutrophils % (A) 62 %; Platelet Count 200 k/uL (150-450); RDW 14.8 % (11.5-15.5); WBC 7.8 k/uL (3.8-10.6)
[2024-06-30 09:23] LABS: ALT 37 U/L (4-34); AST 25 U/L (14-36); African American GFR (CKD) >90 (>60 ml/min/1.73 sqM); Albumin 2.5 g/dL (3.5-5.0); Albumin/Globulin Ratio 0.8; Alkaline Phosphatase 293 U/L (38-126); Anion Gap 6 mmol/L; Blood Urea Nitrogen 3 mg/dL (7-17); Calcium 7.4 mg/dL (8.4-10.2); Carbon Dioxide 25 mmol/L (22-30); Chloride 103 mmol/L (98-107); Glucose 208 mg/dL (74-99); Non-African American GFR(CKD) >90 (>60 ml/min/1.73 sqM); Potassium 4.7 mmol/L (3.5-5.1); Sodium 134 mmol/L (137-145); Total Protein 5.5 g/dL (6.3-8.2)
--- NOTE | 2024-06-30 09:51 | P.PN ---
Subjective Progress Note Date: 06/30/24 Principal diagnosis: Abdominal pain Patient says she feels comfortable today however at the same time states her pain is about the same. Still with some nausea and heartburn issues. White blood cell count normal yesterday. Liver enzymes mildly elevated. She is afebrile. Objective - Vital Signs Vital signs: Vital Signs Temp 98.0 F 06/30/24 07:07 Pulse 75 06/30/24 09:02 Resp 18 06/30/24 07:07 BP 116/69 06/30/24 07:07 Pulse Ox 96 06/30/24 08:54 FiO2 Intake & Output 06/29/24 06/30/24 06/30/24 18:59 06:59 18:59 Other: Voiding Method Toilet Toilet # Voids 3 4 - Exam Abdomen: Soft, mild right-sided tenderness, no rebound or guarding - Labs CBC & Chem 7: 06/30/24 08:05 06/30/24 08:05 Labs: Abnormal Lab Results - Last 24 Hours (Table) 06/29/24 06/29/24 06/29/24 Range/Units 04:15 04:15 13:34 RBC 3.44 L (4.10-5.20) X 10*6/uL Hgb 9.3 L (12.0-15.0) g/dL Hct 28.5 L (37.2-46.3) % RDW 15.6 H (11.5-14.5) % MPV 12.4 H (9.5-12.2) FL Monocytes # 1.22 H (0.20-1.00) X 10*3/uL NRBC/100 WBC Diff 0.04 H (0.00-0.01) X 10*3/uL Sodium 134 L (135-145) mmol/L Carbon Dioxide 21.1 L (21.6-31.8) mmol/L BUN 7.6 L (9.0-27.0) mg/dL Creatinine 0.4 L (0.6-1.5) mg/dL Glucose 237 H (70-110) mg/dL POC Glucose (mg/dL) 64 L (70-110) mg/dL Calcium 7.5 L (8.7-10.3) mg/dL AST 39 H (13-35) U/L ALT 59 H (8-44) U/L Alkaline Phosphatase 286 H (41-126) U/L C-Reactive Protein 4.90 H (0.00-0.80) mg/dL Total Protein 5.2 L (6.2-8.2) g/dL Albumin 2.6 L (3.8-4.9) g/dL Albumin/Globulin Ratio 1.00 L (1.60-3.17) Ratio 06/29/24 06/29/24 06/29/24 Range/Units 14:03 16:43 22:05 RBC (4.10-5.20) X 10*6/uL Hgb (12.0-15.0) g/dL Hct (37.2-46.3) % RDW (11.5-14.5) % MPV (9.5-12.2) FL Monocytes # (0.20-1.00) X 10*3/uL NRBC/100 WBC Diff (0.00-0.01) X 10*3/uL Sodium (135-145) mmol/L Carbon Dioxide (21.6-31.8) mmol/L BUN (9.0-27.0) mg/dL Creatinine (0.6-1.5) mg/dL Glucose (70-110) mg/dL POC Glucose (mg/dL) 113 H 152 H 218 H (70-110) mg/dL Calcium (8.7-10.3) mg/dL AST (13-35) U/L ALT (8-44) U/L Alkaline Phosphatase (41-126) U/L C-Reactive Protein (0.00-0.80) mg/dL Total Protein (6.2-8.2) g/dL Albumin (3.8-4.9) g/dL Albumin/Globulin Ratio (1.60-3.17) Ratio 06/29/24 06/30/24 06/30/24 Range/Units 23:54 00:45 06:15 RBC (4.10-5.20) X 10*6/uL Hgb (12.0-15.0) g/dL Hct (37.2-46.3) % RDW (11.5-14.5) % MPV (9.5-12.2) FL Monocytes # (0.20-1.00) X 10*3/uL NRBC/100 WBC Diff (0.00-0.01) X 10*3/uL Sodium (135-145) mmol/L Carbon Dioxide (21.6-31.8) mmol/L BUN (9.0-27.0) mg/dL Creatinine (0.6-1.5) mg/dL Glucose (70-110) mg/dL POC Glucose (mg/dL) 51 L 144 H 181 H (70-110) mg/dL Calcium (8.7-10.3) mg/dL AST (13-35) U/L ALT (8-44) U/L Alkaline Phosphatase (41-126) U/L C-Reactive Protein (0.00-0.80) mg/dL Total Protein (6.2-8.2) g/dL Albumin (3.8-4.9) g/dL Albumin/Globulin Ratio (1.60-3.17) Ratio 06/30/24 06/30/24 Range/Units 08:05 08:05 RBC 3.60 L (4.10-5.20) X 10*6/uL Hgb 9.9 L (12.0-15.0) g/dL Hct 30.7 L (37.2-46.3) % RDW (11.5-14.5) % MPV (9.5-12.2) FL Monocytes # (0.20-1.00) X 10*3/uL NRBC/100 WBC Diff (0.00-0.01) X 10*3/uL Sodium 134 L (135-145) mmol/L Carbon Dioxide (21.6-31.8) mmol/L BUN 3 L (9.0-27.0) mg/dL Creatinine 0.34 L (0.6-1.5) mg/dL Glucose 208 H (70-110) mg/dL POC Glucose (mg/dL) (70-110) mg/dL Calcium 7.4 L (8.7-10.3) mg/dL AST (13-35) U/L ALT 37 H (8-44) U/L Alkaline Phosphatase 293 H (41-126) U/L C-Reactive Protein (0.00-0.80) mg/dL Total Protein 5.5 L (6.2-8.2) g/dL Albumin 2.5 L (3.8-4.9) g/dL Albumin/Globulin Ratio (1.60-3.17) Ratio Assessment and Plan (1) Abdominal pain Narrative/Plan: 44-year-old female with diabetic ketoacidosis and right sided abdominal pain. Will repeat CT abdomen pelvis at this time given her persistent discomforts. Current Visit: Yes Status: Acute Code(s): R10.9 - UNSPECIFIED ABDOMINAL PAIN SNOMED Code(s): 59608215
[2024-06-30] MEDS: IOPAMIDOL CONTRAST (ORAL USE) VIAL PO PRN (11:30)
[2024-06-30 11:32] LABS: Glucose,Whole Blood 246 mg/dL (70-110)
--- NOTE | 2024-06-30 13:00 | P.PN ---
Subjective Progress Note Date: 06/30/24 This is a 44-year-old female patient was diagnosed having type 1 diabetes and is diagnosed with diabetes approximately a month ago and the patient was receiving a combination of Mounjaro, Farxiga and Lantus insulin 20 units on a daily basis. The family believes that the patient was not taking his insulin although they are not certain. The patient comes into the emergency department with altered mentation and she was in full-blown DKA and at the same time she was severely acidotic with severe lactic acidosis. She was tachycardic and her heart rate was around 150. Initial blood gas showed a pH of 6.9 with a pCO2 of less than 15 and a pO2 of 146 and this was an FiO2 of 21%. Initial blood sugar was 530 and the patient had severe anion gap metabolic acidosis with a serum bicarb of less than 5. The acetone was positive. Lactic acid level was as high as 22. Potassium level was at 5.6. Creatinine was at 1.4. BUN was 16. LFTs are mildly abnormal with an AST of 106, ALT of 68 and alkaline phosphatase of 299. Troponins at 0.08. The white cell count is 25.9 with the most 12.8 and a plate let count of 294. The patient is already received a total of 3 L of IV fluids and the patient is currently on normal saline at 100 cc an hour and insulin drip is running at 7 units an hour. Follow-up blood sugars show some improvement and sugar is currently down to 348. Electrolytes are being monitored very closely. Mentation remains altered. Remains tachycardic. Hemodynamically stable. Chest x-ray shows no acute abnormalities and the CAT scan of the brain also shows no acute abnormalities. 06/26/2024, the patient is being seen for a follow-up. The patient is feeling better compared to yesterday. The patient this morning is on a D5 half-normal saline at a rate of 100 cc an hour. Insulin drip is still running at 3.7 units an hour. There is improvement in the electrolyte imbalance and the patient's most recent electrolytes show a gap of 7 with a serum bicarb of 14. Potassium i s at 4.3. Sodium levels at 130. The blood sugar is currently is at 229.. The patient is less tachycardic. The patient was started on beta-blockers. Overnight the patient was given IV Lopressor and the patient will be started on atenolol today. TSH is suppressed and the patient has history of h yperthyroidism/Graves' disease and Tapazole was restarted. She is awake and alert and communicating. She has received approximately 5 L of IV fluid bolus and the fluid balance is positive. Her cardiac rhythm is sinus and her sinus tachycardia is improved considerably. LFTs are normal and the patient states that she has had abnormal LFTs for a long period of time. No nausea. No emesis. No abdominal pain. No altered mentation. The white cell count remains elevated at 27. No signs of any infection or septicemia and this is likely reactive in nature. The patient remains on room air oxygen. No other significant events overnight. Neurologically, she is awake and alert and communicating. She also states that she has history of alpha-1 antitrypsin disease, MZ phenotype. 06/27/2024, the patient is awake and alert. She started developing some abdominal pain as of yesterday evening. Noted, the patient also had some reactive leukocytosis. LFTs are abnormal. Nevertheless, there are no signs of acute cholecystitis. Ultrasound the gallbladder was done and showed no significant abnormalities. Also, the patient underwent a CAT scan of the abdomen and pelvis and the CAT scan showed some fluid layering in the pelvis and around the gallbladder. However, the gallbladder was not distended and there was no evidence of any gallbladder wall thickening, cholecystitis or Jacqueline lithiasis. Based on that and based on her ongoing abdominal pain, a HIDA scan was ordered. The patient remains on IV Unasyn. Meanwhile, the DKA has recovered. The gap is closed. Serum bicarb is up to 20 and the gap is at 30 and the patient is on D5 half-normal saline at rate of 150 cc an hour. This was will be discontinued and the patient will be transition to long-acting insulin. She will be started on Levemir insulin 21 units daily and NovoLog 7 units with meals. The white cell count is 21, hemoglobin 10.9 and platelet count is at 136. LFTs are elevated although they are improving. The patient's alpha-1 antitrypsin level came back within normal limits 137. Electrolytes are stable. On today's evaluation of 06/28/2024, the patient is awake and alert. Her abdominal pain is somewhat subsided. HIDA scan was negative. General surgery is on the case. No clear cause for her ongoing abdominal pain and nausea. The patient is resting comfortably in bed. She remains on IV Unasyn. She remains on anticoagulation with Xarelto 20 mg p.o. daily. Tolerating her diet. She is currently on Levemir insulin 21 units and NovoLog sliding scale coverage. Rest of the home medications have been resumed. Labs from today are still pending. Most recent blood sugars at 144. 06/29/2024, the patient is awake and alert. Abdominal pain is still present although subsided and the patient is tolerating clear liquid diet. The blood work shows adequate blood sugar control. The gap is currently at 6 with a serum bicarb of 21. The white cell count is at 9.8 with hemoglobin 9.3 and a platelet count of 145. The patient is afebrile. The patient is currently on IV Unasyn and Zithromax as empiric antibiotic coverage. The patient is also receiving Levemir insulin 21 units along with NovoLog 7 units with meals and a sliding scale coverage. She is on PPI. She is on Carafate. She is on Zofran for nausea. General surgery is on the case. As stated, the patient is more comfortable. Abdominal pain persist. She is having bowel movements. On 06/30/2024, patient is still having some limited abdominal pain. The patient was seen by general surgery. She is feeling more comfortable compared to yesterday. She still having some nausea and heartburn issues. LFTs are mildly elevated. She is afebrile. She has fully recovered from her DKA. A repeat CAT scan of the abdomen pelvis is being considered. Meanwhile, the white cell count is 7.8 and has normalized. Hemoglobin is at 9.9. BUN 3 with a creatinine of 0.34 and a sodium of is at 134 and anion gap is at 6 with a serum bicarb of 25. The patient is currently on Levemir insulin 21 units daily along with NovoLog 7 units with meals. Objective - Vital Signs Vital signs: Vital Signs Temp 98.0 F 06/30/24 07:07 Pulse 75 06/30/24 09:02 Resp 18 06/30/24 07:07 BP 116/69 06/30/24 07:07 Pulse Ox 96 06/30/24 08:54 FiO2 Intake & Output 06/29/24 06/30/24 06/30/24 18:59 06:59 18:59 Other: Voiding Method Toilet Toilet # Voids 3 4 - Exam Vital signs as documented. Awake and alert and communicating Head exam is unremarkable. No scleral icterus or corneal arcus noted. Neck is without jugular venous distension, thyromegaly, or carotid bruits. Carotid upstrokes are brisk bilaterally. Lungs are clear to auscultation and percussion. Cardiac exam reveals the PMI to be normally sized and situated. Rhythm is regular. First and second heart sounds normal. No murmurs, rubs or gallops. Abdominal exam reveals normal bowel sounds, no masses, no organomegaly and no aortic enlargement. Extremities are nonedematous and both femoral and pedal pulses are normal. Examination of the skin revealed no evidence of significant rashes, suspicious appearing nevi or other concerning lesions. Neurologically, neurologically, the patient is awake and alert and the patient does not have any focal neurological deficit. Cranial nerves are essentially intact. - Labs CBC & Chem 7: 06/30/24 08:05 06/30/24 08:05 Labs: Abnormal Lab Results - Last 24 Hours (Table) 06/29/24 06/29/24 06/29/24 Range/Units 04:15 04:15 13:34 RBC 3.44 L (4.10-5.20) X 10*6/uL Hgb 9.3 L (12.0-15.0) g/dL Hct 28.5 L (37.2-46.3) % RDW 15.6 H (11.5-14.5) % MPV 12.4 H (9.5-12.2) FL Monocytes # 1.22 H (0.20-1.00) X 10*3/uL NRBC/100 WBC Diff 0.04 H (0.00-0.01) X 10*3/uL Sodium 134 L (135-145) mmol/L Carbon Dioxide 21.1 L (21.6-31.8) mmol/L BUN 7.6 L (9.0-27.0) mg/dL Creatinine 0.4 L (0.6-1.5) mg/dL Glucose 237 H (70-110) mg/dL POC Glucose (mg/dL) 64 L (70-110) mg/dL Calcium 7.5 L (8.7-10.3) mg/dL AST 39 H (13-35) U/L ALT 59 H (8-44) U/L Alkaline Phosphatase 286 H (41-126) U/L C-Reactive Protein 4.90 H (0.00-0.80) mg/dL Total Protein 5.2 L (6.2-8.2) g/dL Albumin 2.6 L (3.8-4.9) g/dL Albumin/Globulin Ratio 1.00 L (1.60-3.17) Ratio 06/29/24 06/29/24 06/29/24 Range/Units 14:03 16:43 22:05 RBC (4.10-5.20) X 10*6/uL Hgb (12.0-15.0) g/dL Hct (37.2-46.3) % RDW (11.5-14.5) % MPV (9.5-12.2) FL Monocytes # (0.20-1.00) X 10*3/uL NRBC/100 WBC Diff (0.00-0.01) X 10*3/uL Sodium (135-145) mmol/L Carbon Dioxide (21.6-31.8) mmol/L BUN (9.0-27.0) mg/dL Creatinine (0.6-1.5) mg/dL Glucose (70-110) mg/dL POC Glucose (mg/dL) 113 H 152 H 218 H (70-110) mg/dL Calcium (8.7-10.3) mg/dL AST (13-35) U/L ALT (8-44) U/L Alkaline Phosphatase (41-126) U/L C-Reactive Protein (0.00-0.80) mg/dL Total Protein (6.2-8.2) g/dL Albumin (3.8-4.9) g/dL Albumin/Globulin Ratio (1.60-3.17) Ratio 06/29/24 06/30/24 06/30/24 Range/Units 23:54 00:45 06:15 RBC (4.10-5.20) X 10*6/uL Hgb (12.0-15.0) g/dL Hct (37.2-46.3) % RDW (11.5-14.5) % MPV (9.5-12.2) FL Monocytes # (0.20-1.00) X 10*3/uL NRBC/100 WBC Diff (0.00-0.01) X 10*3/uL Sodium (135-145) mmol/L Carbon Dioxide (21.6-31.8) mmol/L BUN (9.0-27.0) mg/dL Creatinine (0.6-1.5) mg/dL Glucose (70-110) mg/dL POC Glucose (mg/dL) 51 L 144 H 181 H (70-110) mg/dL Calcium (8.7-10.3) mg/dL AST (13-35) U/L ALT (8-44) U/L Alkaline Phosphatase (41-126) U/L C-Reactive Protein (0.00-0.80) mg/dL Total Protein (6.2-8.2) g/dL Albumin (3.8-4.9) g/dL Albumin/Globulin Ratio (1.60-3.17) Ratio 06/30/24 06/30/24 Range/Units 08:05 08:05 RBC 3.60 L (4.10-5.20) X 10*6/uL Hgb 9.9 L (12.0-15.0) g/dL Hct 30.7 L (37.2-46.3) % RDW (11.5-14.5) % MPV (9.5-12.2) FL Monocytes # (0.20-1.00) X 10*3/uL NRBC/100 WBC Diff (0.00-0.01) X 10*3/uL Sodium 134 L (135-145) mmol/L Carbon Dioxide (21.6-31.8) mmol/L BUN 3 L (9.0-27.0) mg/dL Creatinine 0.34 L (0.6-1.5) mg/dL Glucose 208 H (70-110) mg/dL POC Glucose (mg/dL) (70-110) mg/dL Calcium 7.4 L (8.7-10.3) mg/dL AST (13-35) U/L ALT 37 H (8-44) U/L Alkaline Phosphatase 293 H (41-126) U/L C-Reactive Protein (0.00-0.80) mg/dL Total Protein 5.5 L (6.2-8.2) g/dL Albumin 2.5 L (3.8-4.9) g/dL Albumin/Globulin Ratio (1.60-3.17) Ratio Assessment and Plan Plan: DKA with severe anion gap metabolic acidosis, recovered Abdominal pain, negative ultrasound of the abdomen, negative CAT scan of the abdomen, LFTs are elevated, prior related to chronic fatty liver. Abdominal pain is still being further investigated. Rule out diabetic gastroparesis. HIDA scan was negative mental status is back to normal. The patient is being treated symptomatically. General surgery is on the case. Acute altered mentation secondary to above, CAT scan of the brain is negative. Neurologic exam is nonfocal. Type 1 diabetes mellitus maintained on a combination of Farxiga, Mounjaro and Lantus insulin on outpatient basis. Blood sugar control has been poor on outpatient basis. Noted the patient was switched to a insulin pump and the pump was not functioning appropriately which probably put this patient to DKA. She has not been taking her Lantus insulin. Sinus tachycardia, most likely secondary to dehydration. She also has hyperthyroidism which could be contributing to her sinus tachycardia, recovered and the sinus tachycardia has recovered Severe dehydration, improved Leukocytosis, likely reactive. No signs of any infection or septicemia at this point in time. The patient is on Unasyn and the white cell count is also improving. Troponin leak, likely type II ischemia Mild transaminitis LFTs are still elevated. Graves disease Hyperthyroidism, maintained on Tapazole an outpatient basis and the patient's free T4 is slightly elevated and the patient is currently on beta- blockers History of atrial fibrillation, current rhythm is sinus. alpha 1 AT deficiency, MZ, alpha-1 levels are within normal limits. Plan Continue Levemir and insulin at 21 units and NovoLog 7 units with meals Gap is closed Check amylase and lipase and CPK are within normal limits Lactic acid level normalized Check test was negative Alpha-1 antitrypsin levels are within normal limits Room air oxygen Continue Tapazole Continue atenolol Continue anticoagulation with Eliquis for history of atrial fibrillation HIDA scan was negative Continue IV Unasyn per infectious disease. The white cell count is normalized. consider diabetic gastroparesis and start the patient on Reglan, Carafate and PPI Hepatitis profile within normal limits Will continue to follow
[2024-06-30 13:18] LABS: Glucose,Whole Blood 183 mg/dL (70-110)
--- NOTE | 2024-06-30 13:24 | CT ---
EXAMINATION TYPE: CT abdomen pelvis w con DATE OF EXAM: 06/30/2024 COMPARISON: 06/26/2024 CLINICAL INDICATION: Female, 44 years old with history of Follow-up right sided abdominal pain; PHH, LOW ABD PAIN TECHNIQUE: Performed with Oral Contrast and with IV Contrast, patient injected with 100 ml mL of Isovue 300. CT DLP: 738.[address] CTDI: mGy Automated exposure control for dose reduction was used. FINDINGS: There are small bilateral pleural effusions which have increased in the interval. There is mild lung consolidation adjacent to the effusion likely mild compressive atelectasis. There is questionable mild sludge in the gallbladder but no wall thickening, distention or pericholec ystic fluid. There is no biliary ductal dilatation. There is no focal mass or organomegaly involving the liver, pancreas, or adrenal glands. As on the pr ior study, and there is marked heterogeneity in the enhancement pattern of the spleen with multiple areas of decreased density raising the question of an infiltrative process within the spleen. There i s no splenomegaly. There is no solid renal mass or hydronephrosis and there is homogeneous contrast enhancement of the r enal parenchyma. The caliber the abdominal aorta is normal is no retroperitoneal adenopathy or hemorr nadira. The bowel loops are normal in caliber and there is no evidence of dilatation or obstruction. No infla mmatory changes are identified in the bowel wall or mesentery. There is no free intraperitoneal air. There is a small amount of fluid within the cul-de-sac of the p francoise. No pelvic mass, abscess or adenopathy. The osseous structures and soft tissues are intact. IMPRESSION: 1. Increasing small bilateral pleural effusions, right greater than left and mild bibasilar atelectas is. 2. Diffuse heterogeneity of the spleen raising the question of an infiltrative process. There is no s plenomegaly. 3. Mild fluid in the cul-de-sac of the pelvis. 4. No bowel obstruction or inflammation. 5. Minimal sludge within the gallbladder which otherwise unremarkable. [facility], , 06/30/2024 1:22 PM
--- NOTE | 2024-06-30 15:53 | P.PN ---
Subjective Progress Note Date: 06/30/24 Principal diagnosis: Reason for follow-up is fever possible cholangitis Patient is a 44-year-old female with a past medical history significant for diabetes mellitus atrial fibrillation hypothyroidism in this patient has been brought into the hospital for evaluation of mental status changes, patient noted to be in DKA was initially hypothermic subsequent low- grade fever elevated white count prompted this consultation. On today's evaluation that is 06/30/2024, Patient is afebrile this morning patient denies having any chest pain shortness of breath or cough, the patient is currently on room air, patient epigastric burning pain has decreased intensity no vomiting or diarrhea. The patient white count 7.8, creatinine 0.34 culture have been negative so far Objective - Vital Signs Vital signs: Vital Signs Temp 98.4 F 06/30/24 14:04 Pulse 83 06/30/24 14:04 Resp 16 06/30/24 14:04 BP 115/73 06/30/24 14:04 Pulse Ox 99 06/30/24 14:04 FiO2 Intake & Output 06/29/24 06/30/24 06/30/24 18:59 06:59 18:59 Other: Voiding Method Toilet Toilet Toilet # Voids 3 4 - Exam GENERAL DESCRIPTION: Middle-age female lying in bed in no distress RESPIRATORY SYSTEM: Unlabored breathing , decreased breath sounds at bases HEART: S1 S2 regular rate and rhythm , ABDOMEN: Soft , no tenderness EXTREMITIES: No edema feet - Labs CBC & Chem 7: 06/30/24 08:05 06/30/24 08:05 Labs: Abnormal Lab Results - Last 24 Hours (Table) 06/29/24 06/29/24 06/29/24 Range/Units 16:43 22:05 23:54 RBC (3.80-5.40) m/uL Hgb (11.4-16.0) gm/dL Hct (34.0-46.0) % Sodium (137-145) mmol/L BUN (7-17) mg/dL Creatinine (0.52-1.04) mg/dL Glucose (74-99) mg/dL POC Glucose (mg/dL) 152 H 218 H 51 L (70-110) mg/dL Calcium (8.4-10.2) mg/dL ALT (4-34) U/L Alkaline Phosphatase (38-126) U/L Total Protein (6.3-8.2) g/dL Albumin (3.5-5.0) g/dL 06/30/24 06/30/24 06/30/24 Range/Units 00:45 06:15 08:05 RBC 3.60 L (3.80-5.40) m/uL Hgb 9.9 L (11.4-16.0) gm/dL Hct 30.7 L (34.0-46.0) % Sodium (137-145) mmol/L BUN (7-17) mg/dL Creatinine (0.52-1.04) mg/dL Glucose (74-99) mg/dL POC Glucose (mg/dL) 144 H 181 H (70-110) mg/dL Calcium (8.4-10.2) mg/dL ALT (4-34) U/L Alkaline Phosphatase (38-126) U/L Total Protein (6.3-8.2) g/dL Albumin (3.5-5.0) g/dL 06/30/24 06/30/24 06/30/24 Range/Units 08:05 11:31 13:17 RBC (3.80-5.40) m/uL Hgb (11.4-16.0) gm/dL Hct (34.0-46.0) % Sodium 134 L (137-145) mmol/L BUN 3 L (7-17) mg/dL Creatinine 0.34 L (0.52-1.04) mg/dL Glucose 208 H (74-99) mg/dL POC Glucose (mg/dL) 246 H 183 H (70-110) mg/dL Calcium 7.4 L (8.4-10.2) mg/dL ALT 37 H (4-34) U/L Alkaline Phosphatase 293 H (38-126) U/L Total Protein 5.5 L (6.3-8.2) g/dL Albumin 2.5 L (3.5-5.0) g/dL Assessment and Plan (1) Sepsis Current Visit: Yes Status: Acute Code(s): A41.9 - SEPSIS, UNSPECIFIED ORGANISM SNOMED Code(s): 60907714 (2) Elevated liver enzymes Current Visit: Yes Status: Acute Code(s): R74.8 - ABNORMAL LEVELS OF OTHER SERUM ENZYMES SNOMED Code(s): 442012870 (3) Cholangitis Current Visit: Yes Status: Acute Code(s): K83.09 - OTHER CHOLANGITIS SNOMED Code(s): 54541616 Plan: 1patient presented to hospital with sepsis in this patient was initially hypothermic subsequently did have a fever also have elevated white count as well as tachycardia meeting criteria for SIRS patient has been complaining of pain to right side abdominal area did have elevated liver enzyme concern for possible cholangitis/cholecystitis to be the likely etiology [address] of abdominal pelvis did show some fluid around the gallbladder but no thickening subsequently did have a HIDA scan that was normal 4-patient fever has resolved, and the patient white count has normalized 5we will continue the patient on Unasyn while inpatient transition to oral Augmentin on discharge Family at the bedside question answered Dictation was produced using [email or web address] dictation software. please excuse any grammatical, word or spelling errors. Time with Patient: Less than 30
[2024-06-30 16:37] LABS: Glucose,Whole Blood 139 mg/dL (70-110)
[2024-06-30 20:22] LABS: Glucose,Whole Blood 240 mg/dL (70-110)
[2024-07-01 01:58] LABS: Glucose,Whole Blood 275 mg/dL (70-110)
--- NOTE | 2024-07-01 04:57 | PN ---
PROGRESS NOTE SUBJECTIVE: CAT scan shows right lower lobe pneumonia versus pleural effusion, cholangitis, fever. Hemoglobin is 9.3, white count is 9.84, sodium 134, and potassium 5.0. OBJECTIVE: LUNGS: breath sounds. HEART: S1 and S2. ABDOMEN: Soft. EXTREMITIES: No cyanosis, clubbing, or edema. Bilirubin is 1.5. Liver enzymes were 50 and 71, alkaline phosphatase 281, still elevated. White counts improved, which is great news. IMPRESSION: She has sepsis, elevated liver enzymes, cholangitis, possible pneumonia. Remains on IV antibiotics x2. Possible oral Augmentin on discharge. When she is cleared from diabetic ketoacidosis, possibly send her home with surgery consult to evaluate for possible gallbladder as an outpatient. MMODL / IJN: [id number] /
[2024-07-01 06:45] LABS: Glucose,Whole Blood 209 mg/dL (70-110)
[2024-07-01 08:32] VITALS: BP 122/76; RESP 18; TEMP 97.9
--- NOTE | 2024-07-01 09:49 | P.PN ---
Subjective Progress Note Date: 07/01/24 Principal diagnosis: Abdominal pain Patient feels better today. Says her pain is mostly gone now. Tolerating diet. No nausea or vomiting. CAT scan from yesterday was reviewed. The fluid on the right side of the abdomen is mostly gone. There is some density within the gallbladder that is likely related to recent contrast and not sludge. Objective - Vital Signs Vital signs: Vital Signs Temp 97.9 F 07/01/24 07:08 Pulse 72 07/01/24 09:12 Resp 18 07/01/24 07:08 BP 122/76 07/01/24 07:08 Pulse Ox 97 07/01/24 07:08 FiO2 Intake & Output 06/30/24 07/01/24 07/01/24 18:59 06:59 18:59 Other: Voiding Method Toilet # Voids 3 3 - Exam Abdomen: Soft, mild right-sided tenderness, no rebound or guarding - Labs CBC & Chem 7: 06/30/24 08:05 06/30/24 08:05 Labs: Abnormal Lab Results - Last 24 Hours (Table) 06/30/24 06/30/24 06/30/24 Range/Units 11:31 13:17 16:36 POC Glucose (mg/dL) 246 H 183 H 139 H (70-110) mg/dL 06/30/24 07/01/24 07/01/24 Range/Units 20:20 01:56 06:44 POC Glucose (mg/dL) 240 H 275 H 209 H (70-110) mg/dL Microbiology - Last 24 Hours (Table) 06/25/24 15:35 Blood Culture - Final Blood Assessment and Plan (1) Abdominal pain Narrative/Plan: 44-year-old female doing better at this time. Her pain is just about gone. Continue diet as tolerated. May discharge from our standpoint. Current Visit: Yes Status: Acute Code(s): R10.9 - UNSPECIFIED ABDOMINAL PAIN SNOMED Code(s): 43549379
[2024-07-01 11:25] LABS: Glucose,Whole Blood 249 mg/dL (70-110)
[2024-07-01 12:17] VITALS: PULSE 60
[2024-07-01] MEDS ORDERED: DOXYCYCLINE 100 MG CAP PO SCH (21:00)
[2024-07-01] MEDS ORDERED: AMOXIC-POT CLAV 875-125MG 1 EACH TAB PO SCH (21:00)
--- NOTE | 2024-07-01 22:10 | P.PN ---
Subjective Progress Note Date: 07/01/24 Principal diagnosis: Reason for follow-up is fever possible cholangitis Patient is a 44-year-old female with a past medical history significant for diabetes mellitus atrial fibrillation hypothyroidism in this patient has been brought into the hospital for evaluation of mental status changes, patient noted to be in DKA was initially hypothermic subsequent low- grade fever elevated white count prompted this consultation. On today's evaluation that is 07/01/2024,the patient denies any fever or any chills, patient is breathing comfortably on room air, the patient denies chest pain shortness of breath and no significant cough, patient epigastric pain has improved no nausea vomiting or diarrhea feeling better wants to go home. No new lab has been obtained today blood and urine culture have been negative, patient did have a CT abdominal pelvis completed yesterday with no bowel obstruction or inflammation Objective - Vital Signs Vital signs: Vital Signs Temp 97.9 F 07/01/24 07:08 Pulse 60 07/01/24 12:26 Resp 18 07/01/24 08:05 BP 122/76 07/01/24 07:08 Pulse Ox 97 07/01/24 07:08 FiO2 Intake & Output 06/30/24 07/01/24 07/01/24 18:59 06:59 18:59 Other: Voiding Method Toilet Toilet # Voids 3 3 - Exam GENERAL DESCRIPTION: Middle-age female lying in bed in no distress RESPIRATORY SYSTEM: Unlabored breathing , decreased breath sounds at bases HEART: S1 S2 regular rate and rhythm , ABDOMEN: Soft , no tenderness EXTREMITIES: No edema feet - Labs CBC & Chem 7: 06/30/24 08:05 06/30/24 08:05 Labs: Abnormal Lab Results - Last 24 Hours (Table) 06/30/24 06/30/24 07/01/24 Range/Units 16:36 20:20 01:56 POC Glucose (mg/dL) 139 H 240 H 275 H (70-110) mg/dL 07/01/24 07/01/24 Range/Units 06:44 11:23 POC Glucose (mg/dL) 209 H 249 H (70-110) mg/dL Microbiology - Last 24 Hours (Table) 06/25/24 15:35 Blood Culture - Final Blood Assessment and Plan (1) Sepsis Status: Acute Code(s): A41.9 - SEPSIS, UNSPECIFIED ORGANISM SNOMED Code(s): 93259120 (2) Elevated liver enzymes Status: Acute Code(s): R74.8 - ABNORMAL LEVELS OF OTHER SERUM ENZYMES SNOMED Code(s): 209088442 (3) Cholangitis Status: Acute Code(s): K83.09 - OTHER CHOLANGITIS SNOMED Code(s): 86451327 Plan: 1patient presented to hospital with sepsis in this patient was initially h ypothermic subsequently did have a fever also have elevated white count as well as tachycardia meeting criteria for SIRS patient has been complaining of pain to right side abdominal area did have elevated liver enzyme concern for possible cholangitis/cholecystitis to be the likely etiology [address] of abdominal pelvis did show some fluid around the gallbladder but no thickening subsequently did have a HIDA scan that was normal 4-patient fever has resolved, and the patient white count has normalized plan is to finish therapy short course of oral Augmentin on discharge Dictation was produced using [employer] dictation software. please excuse any grammatical, word or spelling errors. Time with Patient: Less than 30
== END 2024-07-01 14:51 | disposition home or self-care (01) | DRG 871 ==
LOC: EC 09:21 → 2SICU 11:22 → 4SSUR 06-27 12:53
PROVIDERS: ADMIT Family Medicine; ATTEND Family Medicine
DX: A41.9 Sepsis, unspecified organism (principal); E10.10 Type 1 diabetes mellitus with ketoacidosis without coma; I21.A1 Myocardial infarction type 2; G93.41 Metabolic encephalopathy; J18.9 Pneumonia, unspecified organism; K83.09 Other cholangitis; T85.694A Other mechanical complication of insulin pump, initial encounter; I48.0 Paroxysmal atrial fibrillation; E86.0 Dehydration; T38.3X6A Underdosing of insulin and oral hypoglycemic [antidiabetic] drugs, initial encounter; E05.00 Thyrotoxicosis with diffuse goiter without thyrotoxic crisis or storm; Y74.2 Prosthetic and other implants, materials and accessory general hospital and personal-use devices associated with adverse incidents; Z79.4 Long term (current) use of insulin; Z79.01 Long term (current) use of anticoagulants; Z79.82 Long term (current) use of aspirin; Z79.84 Long term (current) use of oral hypoglycemic drugs; Z79.899 Other long term (current) drug therapy
CPT/HCPCS: 36415; 36600; 70450; 71045; 71047; 71250; 74177; 76705; 76830; 76856; 78227; 80048; 80051; 80053; 80074; 80076; 80306; 81003; 81025; 82009; 82103; 82150; 82550; 82565; 82805; 82947; 83036; 83519; 83605; 83690; 83735; 84100; 84439; 84443; 84481; 84484; 84520; 85025; 85027; 85610; 85730; 86140; 87040; 87086; 87636; 93005; 94640; 94760; 96360; 96361; 99291

== ENCOUNTER 2024-11-27 11:49 | Inpatient (IN) | payer OTHER ==
[2024-11-27] MEDS: ETOMIDATE 2 MG/ML 10 ML VIAL IVP STA (11:57)
[2024-11-27 11:58] LABS: Glucose,Whole Blood >600 mg/dL (70-110)
[2024-11-27] MEDS: ROCURONIUM 10 MG/ML (5 ML VIAL) IV STA (11:58)
[2024-11-27] MEDS: SODIUM CHLORIDE 0.9% 2,000 ML IV STA (12:05)
--- NOTE | 2024-11-27 12:19 | XR ---
EXAMINATION TYPE: XR chest 1V portable DATE OF EXAM: 11/27/2024 COMPARISON: Chest CT June 28, 2024 CLINICAL INDICATION: Female, 44 years old with history of intubated; shortness of breath TECHNIQUE: Single frontal view of the chest is obtained. FINDINGS: There is new endotracheal tube terminating below mae in the right mainstem bronchus, sh ould be pulled back approximately 6.0 cm to be in more ideal position. There is orogastric tube exten ding below diaphragm. Slightly elevated left hemidiaphragm redemonstrated. There is no focal air space opacity, pleural eff usion, or pneumothorax seen. The cardiac silhouette size is within normal limits. The osseous stru ctures are intact. IMPRESSION: 1. Abnormal positioning of endotracheal tube, needs to be pulled back roughly 6.0 cm. 2. No suspicious acute pulmonary process. [facility], , 11/27/2024 12:16 PM
--- NOTE | 2024-11-27 12:22 | ED ---
General Adult HPI - General Chief complaint: Altered Mental Status Stated complaint: Unresponsive Time Seen by Provider: 11/27/24 12:03 Source: EMS Mode of arrival: EMS - History of Present Illness Initial comments: Dictation was produced using [employer] dictation software. please excuse any grammatical, word or spelling errors. Chief Complaint: 44-year-old female with altered mental status History of Present Illness: Patient is a 44-year-old female presents to the emergency department with altered mental status. Patient allegedly has history of thyroid issues and diabetes. EMS was called. EMS states that patient was milling responsive at home. She was found to be in what EMS described as SVT. Attempt was made by EMS to cardiovert patient with no success. She was having rates in the 200s. Apparently patient was home with children. Children apparently states that patient has had this before. Unable to obtain ROS secondary mental status - Related Data Home Medications Medication Instructions Recorded Confirmed Dextroamphetamine/Amphetamine 20 mg PO BID@0900,1400 06/25/24 11/27/24 [Adderall] Rivaroxaban [Xarelto] 10 mg PO DAILY 06/25/24 11/27/24 atenoloL [Tenormin] 50 mg PO BID 06/25/24 11/27/24 methIMAzole [Tapazole] 10 mg PO BID 06/25/24 11/27/24 Albuterol Sulfate/Budesonide 1 puff INHALATION DIRECTED 11/27/24 11/27/24 [Airsupra 90-80 Mcg Inhaler] Insulin Aspart (For Pump) [NovoLOG 0.01 unit SQ-PUMP CONTINUOUS 11/27/24 11/27/24 (For Pump)] Insulin Aspart (Niacinamide) 5 units SQ AC-TID 11/27/24 11/27/24 [Fiasp 100 Unit/ml Flextouch Pen] Losartan-Hctz 50-12.5 mg [Hyzaar 1 tab PO DAILY 11/27/24 11/27/24 50-12.5] Omeprazole [PriLOSEC] 40 mg PO BID 11/27/24 11/27/24 Allergies Allergy/AdvReac Type Severity Reaction Status Date / Time meperidine [From Demerol] Allergy syncope Verified 11/27/24 13:35 moxifloxacin [From Avelox] Allergy palpitation Verified 11/27/24 13:35 s Review of Systems ROS Statement: Those systems with pertinent positive or pertinent negative responses have been documented in the HPI. ROS Other: All systems not noted in ROS Statement are negative. Past Medical History Past Medical History: Atrial Fibrillation, Diabetes Mellitus, Thyroid Disorder Additional Past Medical History / Comment(s): thyroid disorder History of Any Multi-Drug Resistant Organisms: None Reported Past Surgical History: No Surgical Hx Reported Past Anesthesia/Blood Transfusion Reactions: No Reported Reaction Past Psychological History: No Psychological Hx Reported Smoking Status: Never smoker Past Alcohol Use History: None Reported Past Drug Use History: None Reported - Past Family History Mother Family Medical History: Hypertension Father Family Medical History: Diabetes Mellitus General Exam - General Exam Comments Initial Comments: PHYSICAL EXAM: General Impression: Lethargic, tremulous HEENT: Normocephalic atraumatic, extra-ocular movements intact, pupils equal and reactive to light bilaterally, mucous membranes Cardiovascular: Cardiac Chest: Tachypneic Abdomen: abdomen soft, non-tender, non-distended, no organomegaly Musculoskeletal: Pulses present and equal in all extremities, no peripheral edema Motor: Extremities grossly Neurological: Uncooperative, minimally responsive, responds to painful stimuli Skin: Intact with no visualized rashes Course Vital Signs 11/27/24 11/27/24 11/27/24 11:50 12:11 12:23 Temperature 96.5 F L Pulse Rate 206 H Respiratory 26 H Rate Blood Pressure 129/87 O2 Sat by Pulse 100 Oximetry Fraction of 60 60 Inspired Oxygen (FIO2) 11/27/24 11/27/24 11/27/24 12:30 13:30 14:02 Temperature 94.6 F L Pulse Rate 154 H 200 H 134 H Respiratory 16 16 16 Rate Blood Pressure 179/87 137/74 O2 Sat by Pulse 99 100 100 Oximetry Fraction of Inspired Oxygen (FIO2) EKG Findings - EKG Comments: EKG Findings:: My EKG interpretation: Ventricular rate 151, a flutter, QRS 140, QTc 331. No NC prolongation, no QTC prolongation, no ST or T-wave changes noted. Procedures - Intubation Sedative: Etomidate Mg Given: 20 Paralytic: Rocuronium Mg Given: 50 ET Tube Size: 7.5 Tube Secured Depth (cm): 23 Tube Secured Location: teeth Tube Placement Confirmation: visualized tube passing through cords, equal breath sounds bilaterally, no breath sounds over epigastrium, confirmation by capnometry Patient Tolerated Procedure: well Intubation Complications: none Medical Decision Making - Medical Decision Making Was pt. sent in by a medical professional or institution (, PA, OFFICE EXECUTIVE, urgent care, hospital, or [facility]...) When possible be specific @ -No Did you speak to anyone other than the patient for history (EMS, parent, family, police, friend...)? What history was obtained from this source @ -No Did you review nursing and triage notes (agree or disagree)? Why? @ -I reviewed and agree with nursing and triage notes Were old charts reviewed (outside hosp., previous admission, EMS record, old EKG, old radiological studies, urgent care reports/EKG's, [facility] records)? Report findings @ -No old charts were reviewed Differential Diagnosis (chest pain, altered mental status, abdominal pain women, abdominal pain men, vaginal bleeding, musculoskeletal, weakness, fever, dyspnea, syncope, headache, dizziness, GI bleed, back pain, seizure, CVA, palpatations, mental health)? @ -Differential Altered Mental Status: Hypoglycemia, DKA, hypercapnia, ETOH, overdose, CO poisoning, trauma, myxedema coma, HTN encephalopathy, infection, encephalitis, psychosis, intercranial hemorrhage, hepatic encephalopathy, meningitis, CVA, this is not meant to be an all-inclusive list EKG interpreted by me (3pts min.). @ -See above X-rays interpreted by me (1pt min.). @ -Chest x-ray shows no acute processes. Endotracheal tube adjusted CT interpreted by me (1pt min.). @ -CT brain shows no acute processes U/S interpreted by me (1pt. min.). @ -None done What testing was considered but not performed or refused? (CT, X-rays, U/S, labs)? Why? @ -None What meds were considered but not given or refused? Why? @ -None Was smoking cessation discussed for >3mins.? @ -No Were there social determinants of health that impacted care today? How? (Homelessness, low income, unemployed, alcoholism, drug addiction, transportation, low edu. Level, literacy, decrease access to med. care, residential, rehab)? @ -No Was there de-escalation of care discussed even if they declined (Discuss DNR or withdrawal of care, Hospice)? DNR status @ -No What co-morbidities impacted this encounter? (DM, HTN, Smoking, COPD, CAD, Cancer, CVA, ARF, Chemo, Hep., AIDS, mental health diagnosis, sleep apnea, morbid obesity)? @ -History of diabetes Was patient admitted / discharged? Hospital course, mention meds given and route, prescriptions, significant lab abnormalities, going to OR and other pertinent info. @ -44-year-old female presents to the ER after being found unresponsive at home. Patient in DKA. Laboratory evaluation obtained. Leukocytosis 19.8 likely secondary to stress. Coag panel is negative. Venous blood gas shows pH of 6.92 with a bicarb of 8. Potassium 6.7. Bicarb of less than 5. Blood glucose of 640. Glucose 4+ positive. Clinical presentation concerning for HHS versus DKA. CT imaging is negative. Patient intubated for airway protection. Case discussed with dentist for admission. Case discussed with hospitalist for admission Did you discuss the management of the patient with other professionals (professionals i.e. , PA, OFFICE EXECUTIVE, lab, RT, psych nurse, social media designer, meter technician, teacher, fare enforcement officer, special education case manager)? Give summary @ -See above Was critical care preformed (if so, how long)? @ -Yes, 77 minutes Undiagnosed new problem with uncertain prognosis? @ -No Drug Therapy requiring intensive monitoring for toxicity (Heparin, Nitro, Insul in, Cardizem)? @ -No Were any procedures done? @ -No Diagnosis/symptom? Acute, or Chronic, or Acute on Chronic? Uncomplicated (without systemic symptoms) or Complicated (systemic symptoms)? @ -DKA/HHS Side effects of treatment? @ -No Exacerbation, Progression, or Severe Exacerbation? @ -No Poses a threat to life or bodily function? How? (Chest pain, USA, MD, pneumonia, PE, COPD, DKA, ARF, appy, cholecystitis, CVA, Diverticulitis, Homicidal, Suicidal, threat to staff... and all critical care pts) @ -yes - Lab Data Result diagrams: 11/27/24 12:16 11/27/24 12:16 Lab Results 11/27/24 11/27/24 11/27/24 Range/Units 11:52 12:16 12:16 WBC 19.84 H (4.50-10.00) 10*3/uL RBC 4.18 (4.10-5.20) 10*6/uL Hgb 11.8 L (12.0-15.0) g/dL Hct 37.9 (37.2-46.3) % MCV 90.7 (80.0-97.0) fL MCH 28.2 (27.0-32.0) pg MCHC 31.1 L (32.0-37.0) g/dL Plt Count 316 (140-440) 10*3/uL MPV 12.8 H (9.5-12.2) fL Immature Gran % (Auto) 4.2 % Neutrophils % OFFICE EXECUTIVE Neutrophils % (Manual) 88 % Lymphocytes % OFFICE EXECUTIVE Lymphocytes % (Manual) 7 % Monocytes % OFFICE EXECUTIVE Monocytes % (Manual) 5 % Eosinophils % OFFICE EXECUTIVE Basophils % OFFICE EXECUTIVE Immature Gran # 0.83 H (0.00-0.04) 10*3/uL Neutrophils # OFFICE EXECUTIVE Neutrophils # (Manual) 17.46 H (1.3-7.7) k/uL Lymphocytes # OFFICE EXECUTIVE Lymphocytes # (Manual) 1.39 (1.0-4.8) k/uL Monocytes # OFFICE EXECUTIVE Monocytes # (Manual) 0.99 (0-1.0) k/uL Eosinophils # OFFICE EXECUTIVE Basophils # OFFICE EXECUTIVE Nucleated RBCs 0 (0-0) /100 WBC Manual Slide Review Performed PT 11.4 (10.0-12.5) sec INR 1.0 (<1.2) APTT 21.0 L (22.0-30.0) sec VBG pH (7.31-7.41) VBG pCO2 (37-51) mmHg VBG HCO3 (24-28) mmol/L Sodium (137-145) mmol/L Potassium (3.5-5.1) mmol/L Chloride (98-107) mmol/L Carbon Dioxide (22-30) mmol/L Anion Gap mmol/L BUN (7-17) mg/dL Creatinine (0.52-1.04) mg/dL Est GFR (CKD-EPI)AfAm (>60 ml/min/1.73 sqM) Est GFR (CKD-EPI)NonAf (>60 ml/min/1.73 sqM) Glucose (74-99) mg/dL POC Glucose (mg/dL) >600 H* (70-110) mg/dL POC Glu Sweat [employer] Sewer ID Brian Caban Plasma Lactic Acid Abelardo (0.7-2.0) mmol/L Calcium (8.4-10.2) mg/dL Magnesium (1.6-2.3) mg/dL Total Bilirubin (0.2-1.3) mg/dL AST (14-36) U/L ALT (4-34) U/L Alkaline Phosphatase (38-126) U/L Troponin I (0.000-0.034) ng/mL Total Protein (6.3-8.2) g/dL Albumin (3.5-5.0) g/dL TSH (0.465-4.680) mIU/L Urine Color Urine Appearance (Clear) Urine pH (5.0-8.0) Ur Specific [place] (1.001-1.035) Urine Protein (Negative) Urine Glucose (UA) (Negative) Urine Ketones (Negative) Urine Blood (Negative) Urine Nitrite (Negative) Urine Bilirubin (Negative) Urine Urobilinogen (<2.0) mg/dL Ur Leukocyte Esterase (Negative) Acetone, Qual (Negative) Blood Type Blood Type Confirm Blood Type Recheck Bld Type Recheck Status Antibody Screen Spec Expiration Date 11/27/24 11/27/24 11/27/24 Range/Units 12:16 12:16 12:16 WBC (4.50-10.00) 10*3/uL RBC (4.10-5.20) 10*6/uL Hgb (12.0-15.0) g/dL Hct (37.2-46.3) % MCV (80.0-97.0) fL MCH (27.0-32.0) pg MCHC (32.0-37.0) g/dL Plt Count (140-440) 10*3/uL MPV (9.5-12.2) fL Immature Gran % (Auto) % Neutrophils % Neutrophils % (Manual) % Lymphocytes % Lymphocytes % (Manual) % Monocytes % Monocytes % (Manual) % Eosinophils % Basophils % Immature Gran # (0.00-0.04) 10*3/uL Neutrophils # Neutrophils # (Manual) (1.3-7.7) k/uL Lymphocytes # Lymphocytes # (Manual) (1.0-4.8) k/uL Monocytes # Monocytes # (Manual) (0-1.0) k/uL Eosinophils # Basophils # Nucleated RBCs (0-0) /100 WBC Manual Slide Review PT (10.0-12.5) sec INR (<1.2) APTT (22.0-30.0) sec VBG pH (7.31-7.41) VBG pCO2 (37-51) mmHg VBG HCO3 (24-28) mmol/L Sodium 134 L (137-145) mmol/L Potassium 6.7 H* (3.5-5.1) mmol/L Chloride 98 (98-107) mmol/L Carbon Dioxide <5 L* (22-30) mmol/L Anion Gap mmol/L BUN 19 H (7-17) mg/dL Creatinine 0.70 (0.52-1.04) mg/dL Est GFR (CKD-EPI)AfAm >90 (>60 ml/min/1.73 sqM) Est GFR (CKD-EPI)NonAf >90 (>60 ml/min/1.73 sqM) Glucose 640 H* (74-99) mg/dL POC Glucose (mg/dL) (70-110) mg/dL POC Glu Swe[employer] Sewer ID Plasma Lactic Acid Abelardo 19.9 H* (0.7-2.0) mmol/L Calcium 10.1 (8.4-10.2) mg/dL Magnesium 2.2 (1.6-2.3) mg/dL Total Bilirubin 1.7 H (0.2-1.3) mg/dL AST 54 H (14-36) U/L ALT 31 (4-34) U/L Alkaline Phosphatase 349 H (38-126) U/L Troponin I 0.057 H* (0.000-0.034) ng/mL Total Protein 7.6 (6.3-8.2) g/dL Albumin 3.9 (3.5-5.0) g/dL TSH <0.015 L (0.465-4.680) mIU/L Urine Color Urine Appearance (Clear) Urine pH (5.0-8.0) Ur Specific [place] (1.001-1.035) Urine Protein (Negative) Urine Glucose (UA) (Negative) Urine Ketones (Negative) Urine Blood (Negative) Urine Nitrite (Negative) Urine Bilirubin (Negative) Urine Urobilinogen (<2.0) mg/dL Ur Leukocyte Esterase (Negative) Acetone, Qual Negative (Negative) Blood Type Blood Type Confirm Blood Type Recheck Bld Type Recheck Status Antibody Screen Spec Expiration Date 11/27/24 11/27/24 11/27/24 Range/Units 12:27 12:30 12:34 WBC (4.50-10.00) 10*3/uL RBC (4.10-5.20) 10*6/uL Hgb (12.0-15.0) g/dL Hct (37.2-46.3) % MCV (80.0-97.0) fL MCH (27.0-32.0) pg MCHC (32.0-37.0) g/dL Plt Count (140-440) 10*3/uL MPV (9.5-12.2) fL Immature Gran % (Auto) % Neutrophils % Neutrophils % (Manual) % Lymphocytes % Lymphocytes % (Manual) % Monocytes % Monocytes % (Manual) % Eosinophils % Basophils % Immature Gran # (0.00-0.04) 10*3/uL Neutrophils # Neutrophils # (Manual) (1.3-7.7) k/uL Lymphocytes # Lymphocytes # (Manual) (1.0-4.8) k/uL Monocytes # Monocytes # (Manual) (0-1.0) k/uL Eosinophils # Basophils # Nucleated RBCs (0-0) /100 WBC Manual Slide Review PT (10.0-12.5) sec INR (<1.2) APTT (22.0-30.0) sec VBG pH 6.92 L* (7.31-7.41) VBG pCO2 40 (37-51) mmHg VBG HCO3 8 L* (24-28) mmol/L Sodium (137-145) mmol/L Potassium (3.5-5.1) mmol/L Chloride (98-107) mmol/L Carbon Dioxide (22-30) mmol/L Anion Gap mmol/L BUN (7-17) mg/dL Creatinine (0.52-1.04) mg/dL Est GFR (CKD-EPI)AfAm (>60 ml/min/1.73 sqM) Est GFR (CKD-EPI)NonAf (>60 ml/min/1.73 sqM) Glucose (74-99) mg/dL POC Glucose (mg/dL) (70-110) mg/dL POC Glu Swe[employer] Sewer ID Plasma Lactic Acid Abelardo (0.7-2.0) mmol/L Calcium (8.4-10.2) mg/dL Magnesium (1.6-2.3) mg/dL Total Bilirubin (0.2-1.3) mg/dL AST (14-36) U/L ALT (4-34) U/L Alkaline Phosphatase (38-126) U/L Troponin I (0.000-0.034) ng/mL Total Protein (6.3-8.2) g/dL Albumin (3.5-5.0) g/dL TSH (0.465-4.680) mIU/L Urine Color Colorless Urine Appearance Clear (Clear) Urine pH 5.0 (5.0-8.0) Ur Specific [place] 1.018 (1.001-1.035) Urine Protein Negative (Negative) Urine Glucose (UA) 4+ H (Negative) Urine Ketones Negative (Negative) Urine Blood Negative (Negative) Urine Nitrite Negative (Negative) Urine Bilirubin Negative (Negative) Urine Urobilinogen <2.0 (<2.0) mg/dL Ur Leukocyte Esterase Negative (Negative) Acetone, Qual (Negative) Blood Type Blood Type Confirm O Positive Blood Type Recheck Bld Type Recheck Status Antibody Screen Spec Expiration Date 11/27/24 Range/Units 12:34 WBC (4.50-10.00) 10*3/uL RBC (4.10-5.20) 10*6/uL Hgb (12.0-15.0) g/dL Hct (37.2-46.3) % MCV (80.0-97.0) fL MCH (27.0-32.0) pg MCHC (32.0-37.0) g/dL Plt Count (140-440) 10*3/uL MPV (9.5-12.2) fL Immature Gran % (Auto) % Neutrophils % Neutrophils % (Manual) % Lymphocytes % Lymphocytes % (Manual) % Monocytes % Monocytes % (Manual) % Eosinophils % Basophils % Immature Gran # (0.00-0.04) 10*3/uL Neutrophils # Neutrophils # (Manual) (1.3-7.7) k/uL Lymphocytes # Lymphocytes # (Manual) (1.0-4.8) k/uL Monocytes # Monocytes # (Manual) (0-1.0) k/uL Eosinophils # Basophils # Nucleated RBCs (0-0) /100 WBC Manual Slide Review PT (10.0-12.5) sec INR (<1.2) APTT (22.0-30.0) sec VBG pH (7.31-7.41) VBG pCO2 (37-51) mmHg VBG HCO3 (24-28) mmol/L Sodium (137-145) mmol/L Potassium (3.5-5.1) mmol/L Chloride (98-107) mmol/L Carbon Dioxide (22-30) mmol/L Anion Gap mmol/L BUN (7-17) mg/dL Creatinine (0.52-1.04) mg/dL Est GFR (CKD-EPI)AfAm (>60 ml/min/1.73 sqM) Est GFR (CKD-EPI)NonAf (>60 ml/min/1.73 sqM) Glucose (74-99) mg/dL POC Glucose (mg/dL) (70-110) mg/dL POC Glu Sweat Band Sewer ID Plasma Lactic Acid Abelardo (0.7-2.0) mmol/L Calcium (8.4-10.2) mg/dL Magnesium (1.6-2.3) mg/dL Total Bilirubin (0.2-1.3) mg/dL AST (14-36) U/L ALT (4-34) U/L Alkaline Phosphatase (38-126) U/L Troponin I (0.000-0.034) ng/mL Total Protein (6.3-8.2) g/dL Albumin (3.5-5.0) g/dL TSH (0.465-4.680) mIU/L Urine Color Urine Appearance (Clear) Urine pH (5.0-8.0) Ur Specific [place] (1.001-1.035) Urine Protein (Negative) Urine Glucose (UA) (Negative) Urine Ketones (Negative) Urine Blood (Negative) Urine Nitrite (Negative) Urine Bilirubin (Negative) Urine Urobilinogen (<2.0) mg/dL Ur Leukocyte Esterase (Negative) Acetone, Qual (Negative) Blood Type O Positive Blood Type Confirm Blood Type Recheck No Previous Record Bld Type Recheck Status CABO Indicated Antibody Screen NEGATIVE Spec Expiration Date 11/30/20242333 Disposition Clinical Impression: Hyperosmolar coma Disposition: ADMITTED IP TO THIS [facility] Condition: Critical Referrals: Rolando Jacobsen MD [Primary Care Provider] - 1-2 days Decision Time: 14:00
[2024-11-27 12:30] LABS: HCT 37.9 % (37.2-46.3); HGB 11.8 g/dL (12.0-15.0); MCH 28.2 pg (27.0-32.0); MCHC 31.1 g/dL (32.0-37.0); MCV 90.7 fL (80.0-97.0); Mean Platelet Volume 12.8 fL (9.5-12.2); Platelet Count 316 10*3/uL (140-440); RBC 4.18 10*6/uL (4.10-5.20); RDW 15.6 % (11.5-14.5); WBC 19.84 10*3/uL (4.50-10.00)
[2024-11-27 12:44] LABS: Appearance,Urine Clear (Clear); Bilirubin,Urine Negative (Negative); Blood,Urine Negative (Negative); Color,Urine Colorless; Glucose,Urine (UA) 4+ (Negative); Ketones,Urine Negative (Negative); Leukocyte Esterase,Urine Negative (Negative); Nitrite,Urine Negative (Negative); Protein,Urine Negative (Negative); Specific Gravity,Urine 1.018 (1.001-1.035); Urobilinogen,Urine <2.0 mg/dL (<2.0)
[2024-11-27 12:49] LABS: AST 54 U/L (14-36); African American GFR (CKD) >90 (>60 ml/min/1.73 sqM); Albumin 3.9 g/dL (3.5-5.0); Alkaline Phosphatase 349 U/L (38-126); Blood Urea Nitrogen 19 mg/dL (7-17); Calcium 10.1 mg/dL (8.4-10.2); Chloride 98 mmol/L (98-107); Magnesium 2.2 mg/dL (1.6-2.3); Non-African American GFR(CKD) >90 (>60 ml/min/1.73 sqM); Sodium 134 mmol/L (137-145); Total Bilirubin 1.7 mg/dL (0.2-1.3); Total Protein 7.6 g/dL (6.3-8.2)
[2024-11-27 12:51] LABS: VBG PH 6.92 (7.31-7.41)
[2024-11-27] MEDS ORDERED: DEXTROSE 50% SYRINGE 50 ML IVP PRN ×2 (13:02)
[2024-11-27] MEDS ORDERED: Potassium Replacement Protocol 1 EACH MISC MISCELLANE PRN (13:02)
[2024-11-27] MEDS ORDERED: Magnesium Replacement Protocol 1 EACH MISC MISCELLANE PRN (13:02)
[2024-11-27 13:03] LABS: ALT 31 U/L (4-34); Carbon Dioxide <5 mmol/L (22-30); Glucose 640 mg/dL (74-99); Potassium 6.7 mmol/L (3.5-5.1)
--- NOTE | 2024-11-27 13:08 | XR ---
EXAMINATION TYPE: XR chest 1V portable DATE OF EXAM: 11/27/2024 COMPARISON: Chest x-ray earlier today CLINICAL INDICATION: Female, 44 years old with history of tube repositioning; TECHNIQUE: Single frontal view of the chest is obtained. FINDINGS: Persistent low-lying endotracheal tube terminating at mae, advise pulling back 3 to 4 c m to be more ideal position. Persistent elevated left hemidiaphragm. Stable orogastric tube. There is new left lower lung laterally increased opacity. The cardiac silhouette size is stable and upper li mits of normal. The osseous structures are intact. IMPRESSION: Persistent low-lying endotracheal tube, advise pulling back 3 to 4 cm. [facility], , 11/27/2024 1:06 PM
[2024-11-27] MEDS: SODIUM CHLORIDE 0.9% 1,000 ML IV STA (13:10)
[2024-11-27] MEDS: SODIUM CHLORIDE 0.9% 1,000 ML IV SCH (13:30)
[2024-11-27] MEDS: INSULIN REGULAR BOLUS (FROM DRIP BAG) IV ONE (13:30)
[2024-11-27] MEDS: INSULIN REGULAR 100 UNIT in SODIUM CHLORIDE 0.9% 100 ML IV SCH (13:34)
[2024-11-27 13:58] LABS: Lymphocytes # (M) 1.39 k/uL (1.0-4.8); Monocytes # (M) 0.99 k/uL (0-1.0); Neutrophils # (M) 17.46 k/uL (1.3-7.7); Neutrophils % (M) 88 %; Nucleated Red Blood Cells 0 /100 WBC (0-0); Total Cells Counted 100
[2024-11-27 14:00] LABS: Prothrombin Time 11.4 sec (10.0-12.5)
[2024-11-27] MEDS ORDERED: NALOXONE 0.4 MG/ML 1 ML VIAL IV PRN (14:17)
--- NOTE | 2024-11-27 14:20 | CT ---
EXAMINATION TYPE: CT brain wo con DATE OF EXAM: 11/27/2024 COMPARISON: 06/25/2024 CLINICAL INDICATION: Female, 44 years old with history of ams; PHH, AMS. CT DLP: 1156.4 mGycm Automated exposure control for dose reduction was used. Findings: The ventricles, basal cisterns and sulci over convexities are consistent with mildly to moderately en larged consistent mild to moderate generalized atrophy. There are stable small basal ganglial calcifications. There is no mass effect or shift in midline structures. There is no acute intra or extra-axial hemorrhage. Posterior fossa is grossly normal. The intraorbital contents appear normal and symmetric There is mild possibly acute inflammatory change in the left maxillary sinus. In the interval, there is improved aeration of the left maxillary sinus compared to the previous study.. IMPRESSION: 1. No acute bleed or mass effect. 2. Mild to moderate generalized atrophy. 3. Mild inflammatory changes in the left maxillary sinus. [facility], , 11/27/2024 2:18 PM
[2024-11-27 14:48] LABS: Glucose,Whole Blood 341 mg/dL (70-110)
[2024-11-27] MEDS: DILTIAZEM DRIP BOLUS FROM BAG 1 MG SOLN IV ONE (14:50)
[2024-11-27] MEDS: DILTIAZEM 125 MG in SODIUM CHLORIDE 0.9% 100 ML IV SCH (14:50)
[2024-11-27 15:37] LABS: Glucose,Whole Blood 261 mg/dL (70-110)
[2024-11-27 15:38] LABS: Cocaine Screen,Urine Not Detected (NotDetected); Opiate Screen,Urine Not Detected (NotDetected); Phencyclidine Screen,Urine Not Detected (NotDetected); Urn Cannabinoid Scrn Not Detected (NotDetected)
[2024-11-27 15:39] LABS: Amphetamine Screen,Urine Detected (NotDetected); Barbiturate Screen,Urine Not Detected (NotDetected); Benzodiazepines Screen,Urine Not Detected (NotDetected); Methadone Screen, Urine Not Detected (NotDetected); Oxycodone Screen, Urine Not Detected (NotDetected); Tricyclic Antidepressant,Urine Not Detected (NotDetected)
--- NOTE | 2024-11-27 15:58 | P.CNPUL ---
History of Present Illness Consult date: 11/27/24 Requesting physician: Rolando Jacobsen Reason for consult: other Chief complaint: Altered mental status History of present illness: This is a 44-year-old female with known history of diabetes, patient had previous episode of DKA back in June of 2024, and she was seen by Dr. Gonzalez on consultation at the time. This time the patient seems to have a similar presentation she was brought into the ER with altered mental status, patient was unresponsive at home, and she was seen by EMS with what seems to be a picture of SVT. Patient did not respond to cardioversion by EMS. Heart rate rate was in the 200 range, patient was brought into the ER, and as soon as she arrived the patient was noted to be in distress, intubated and mechanically ventilated by the ER physician. Workup in the ER included venous blood gas showing a bicarb of 8 and a pH of 6.92, she had blood sugar as high as 600+, lactic acid was as high as 19.9, urinalysis showed no evidence of ketones in the urine. CT of the brain showed no evidence of acute disease except for mild inflammatory changes in the left maxillary sinus and it also showed mild to moderate generalized atrophy. Chest x-ray showed endotracheal tube to be low- lying seems to be at the level just above the mae apparently this was adjusted already by the ER physician based on her initial chest x-ray. Could not obtain any history from the patient as she seems to be obtunded and unresponsive to any stimuli. Has recommended treatment as per DKA protocol, I also recommended CT of the brain to be done which came back nondiagnostic. In the meantime the patient is receiving fluid boluses so far she has received 2- 1/2 L of 0.9 normal saline and I recommended starting the patient on insulin drip. Review of Systems ROS unobtainable: due to endotracheal tube Past Medical History Past Medical History: Atrial Fibrillation, Diabetes Mellitus, Thyroid Disorder Additional Past Medical History / Comment(s): thyroid disorder History of Any Multi-Drug Resistant Organisms: None Reported Past Surgical History: No Surgical Hx Reported Past Anesthesia/Blood Transfusion Reactions: No Reported Reaction Past Psychological History: No Psychological Hx Reported Smoking Status: Never smoker Past Alcohol Use History: None Reported Past Drug Use History: None Reported - Past Family History Mother Family Medical History: Hypertension Father Family Medical History: Diabetes Mellitus Medications and Allergies Home Medications Medication Instructions Recorded Confirmed Type Dextroamphetamine/Amphetamine 20 mg PO BID@0900,1400 06/25/24 11/27/24 History [Adderall] Rivaroxaban [Xarelto] 10 mg PO DAILY 06/25/24 11/27/24 History atenoloL [Tenormin] 50 mg PO BID 06/25/24 11/27/24 History methIMAzole [Tapazole] 10 mg PO BID 06/25/24 11/27/24 History Albuterol Sulfate/Budesonide 1 puff INHALATION DIRECTED 11/27/24 11/27/24 History [Airsupra 90-80 Mcg Inhaler] Insulin Aspart (For Pump) [NovoLOG 0.01 unit SQ-PUMP CONTINUOUS 11/27/24 11/27/24 History (For Pump)] Insulin Aspart (Niacinamide) 5 units SQ AC-TID 11/27/24 11/27/24 History [Fiasp 100 Unit/ml Flextouch Pen] Losartan-Hctz 50-12.5 mg [Hyzaar 1 tab PO DAILY 11/27/24 11/27/24 History 50-12.5] Omeprazole [PriLOSEC] 40 mg PO BID 11/27/24 11/27/24 History Allergies Allergy/AdvReac Type Severity Reaction Status Date / Time meperidine [From Demerol] Allergy syncope Verified 11/27/24 13:35 moxifloxacin [From Avelox] Allergy palpitation Verified 11/27/24 13:35 s Physical Exam Vitals: Vital Signs Temp Pulse Resp BP Pulse Ox FiO2 11/27/24 15:16 96.9 F L 112 H 17 150/86 100 11/27/24 14:02 94.6 F L 134 H 16 162/92 100 11/27/24 13:30 200 H 16 137/74 100 11/27/24 13:00 200 H 16 157/88 100 11/27/24 12:30 154 H 16 179/87 99 11/27/24 12:23 60 11/27/24 12:11 60 11/27/24 11:50 96.5 F L 206 H 26 H 129/87 100 Intake and Output 11/27/24 11/27/24 11/27/24 06:59 14:59 22:59 Other: Weight 67.4 kg General: Revealed a 44-year-old female intubated mechanically ventilated, unresponsive to any stimuli. On insulin drip. Derm: warm, dry, intact Head: atraumatic, normocephalic, symmetric, endotracheal tube is intact. Eyes: EOMI, anicteric sclera Mouth: no lip lesion, dry mucus membranes Cardiovascular: Tachycardic, irregular rhythm, no S3 gallop. Lungs: Diminished breath sound bilaterally no rhonchi no wheezes Abdominal: soft, diffuse nonspecific tenderness to palpataion, no appreciable organomegaly Extremities: No clubbing edema or cyanosis Neuro: Could not assess, patient is intubated mechanically ventilated sedated Psych: Could not assess Results - Laboratory Findings CBC and BMP: 11/27/24 12:16 11/27/24 12:16 PT/INR, D-dimer PT 11.4 sec (10.0-12.5) 11/27/24 12:16 INR 1.0 (<1.2) 11/27/24 12:16 Abnormal lab findings: Abnormal Labs 11/27/24 11/27/24 11/27/24 11:52 12:16 12:16 WBC 19.84 H Hgb 11.8 L MCHC 31.1 L MPV 12.8 H Immature Gran # 0.83 H Neutrophils # (Manual) 17.46 H APTT 21.0 L VBG pH VBG HCO3 Sodium Potassium Carbon Dioxide BUN Glucose POC Glucose (mg/dL) >600 H* Plasma Lactic Acid Abelardo Total Bilirubin AST Alkaline Phosphatase Troponin I TSH Urine Glucose (UA) 11/27/24 11/27/24 11/27/24 12:16 12:16 12:16 WBC Hgb MCHC MPV Immature Gran # Neutrophils # (Manual) APTT VBG pH VBG HCO3 Sodium 134 L Potassium 6.7 H* Carbon Dioxide <5 L* BUN 19 H Glucose 640 H* POC Glucose (mg/dL) Plasma Lactic Acid Abelardo 19.9 H* Total Bilirubin 1.7 H AST 54 H Alkaline Phosphatase 349 H Troponin I 0.057 H* TSH <0.015 L Urine Glucose (UA) 11/27/24 11/27/24 11/27/24 12:27 12:34 14:46 WBC Hgb MCHC MPV Immature Gran # Neutrophils # (Manual) APTT VBG pH 6.92 L* VBG HCO3 8 L* Sodium Potassium Carbon Dioxide BUN Glucose POC Glucose (mg/dL) 341 H Plasma Lactic Acid Abelardo Total Bilirubin AST Alkaline Phosphatase Troponin I TSH Urine Glucose (UA) 4+ H - Diagnostic Findings Chest x-ray: image reviewed (As noted in HPI) Additional studies: CT brain: As noted in HPI Assessment and Plan Assessment: Impression: Acute hyperglycemia with hyper osmotic state, possible DKA. Acute metabolic encephalopathy secondary to above Acute metabolic acidosis/lactic acidosis secondary to above History of diabetes Sinus tachycardia Severe dehydration History of hyperthyroidism on Tapazole, history of Graves' disease, TSH is low, free T4 is pending Paroxysmal atrial fibrillation History of alpha 1 antitrypsin deficiency MZ disease History of gastroparesis Recommendation: Admit to ICU Continue ventilatory support Continue IV fluids as per protocol for DKA/HHS Close monitoring of blood sugars and electrolytes every 2 hours Resume home meds Continue GI DVT prophylaxis Continue insulin infusion as per protocol Continue Tapazole and beta-blockers Anticoagulate, resume home meds for anticoagulation Empiric antibiotics considering the presentation of hyperglycemia/possible DKA Patient is critically ill Will continue to follow. Time with Patient: Greater than 30
[2024-11-27] MEDS: D5-0.45% NACL WITH KCL 20MEQ/L 1,000 ML IV SCH (16:16)
[2024-11-27 16:41] LABS: Glucose,Whole Blood 224 mg/dL (70-110)
[2024-11-27 17:02] LABS: African American GFR (CKD) >90 (>60 ml/min/1.73 sqM); Blood Urea Nitrogen 20 mg/dL (7-17); Glucose 266 mg/dL (74-99); Non-African American GFR(CKD) >90 (>60 ml/min/1.73 sqM)
[2024-11-27 17:05] LABS: Potassium 4.1 mmol/L (3.5-5.1)
[2024-11-27 17:19] LABS: T4, Free (Free Thyroxine) 4.53 ng/dL (0.78-2.19)
[2024-11-27 17:59] LABS: Glucose,Whole Blood 138 mg/dL (70-110)
--- NOTE | 2024-11-27 18:15 | P.CNNES ---
History of Present Illness Consult date: 11/27/24 Requesting physician: Deysi Pollack Reason for Consult: ams History of Present Illness: This is a 44-year-old woman with history of type 1 diabetes on insulin pump who presents emergency department because of altered mental status. Family members are at bedside who provide the history. The patient's mother, the patient's son talked to the patient in the morning and she was conversing with him but then when he called her a couple hours later she was not in apparent phone as a result he contacted his grandmother and eventually family members found her confused and she was not responsive. It seems that her sugar was more than 600. According to family member she had similar episode in the past 1 year. Patient does not have any underlying history of stroke or seizures. According to family members she is on insulin pump and her device is not new and unsure what transpired. Family members patient does not use tobacco or any illicit drug use or alcohol use In the ED the patient was intubated and sedated and is on IV propofol. Some of the workup during the hospital visit consisted of: POC glucose is more than 600. Potassium 6.7,, dioxide level is less than 5, plasma lactic acid vein is 9.9, TSH is less than 0.015 and the free T4 is 4.5 Phosphorus is 5.5 Urine Drug send is positive for amphetamine CT of the head is reported as no acute bleed or mass effect. Mild to moderate generalized atrophy. Mild inflammatory change in the left maxillary sinus. Patient reviewed the CT and agree there is no acute or subacute stroke or any mass effect. Review of Systems Limited but as per HPI. Past Medical History Past Medical History: Atrial Fibrillation, Diabetes Mellitus, Thyroid Disorder Additional Past Medical History / Comment(s): thyroid disorder History of Any Multi-Drug Resistant Organisms: None Reported Past Surgical History: No Surgical Hx Reported Past Anesthesia/Blood Transfusion Reactions: No Reported Reaction Past Psychological History: No Psychological Hx Reported Smoking Status: Never smoker Past Alcohol Use History: None Reported Past Drug Use History: None Reported - Past Family History Mother Family Medical History: Hypertension Father Family Medical History: Diabetes Mellitus Medications and Allergies Home Medications Medication Instructions Recorded Confirmed Type Dextroamphetamine/Amphetamine 20 mg PO BID@0900,1400 06/25/24 11/27/24 History [Adderall] Rivaroxaban [Xarelto] 10 mg PO DAILY 06/25/24 11/27/24 History atenoloL [Tenormin] 50 mg PO BID 06/25/24 11/27/24 History methIMAzole [Tapazole] 10 mg PO BID 06/25/24 11/27/24 History Albuterol Sulfate/Budesonide 1 puff INHALATION DIRECTED 11/27/24 11/27/24 History [Airsupra 90-80 Mcg Inhaler] Insulin Aspart (For Pump) [NovoLOG 0.01 unit SQ-PUMP CONTINUOUS 11/27/24 11/27/24 History (For Pump)] Insulin Aspart (Niacinamide) 5 units SQ AC-TID 11/27/24 11/27/24 History [Fiasp 100 Unit/ml Flextouch Pen] Losartan-Hctz 50-12.5 mg [Hyzaar 1 tab PO DAILY 11/27/24 11/27/24 History 50-12.5] Omeprazole [PriLOSEC] 40 mg PO BID 11/27/24 11/27/24 History Allergies Allergy/AdvReac Type Severity Reaction Status Date / Time meperidine [From Demerol] Allergy syncope Verified 11/27/24 13:35 moxifloxacin [From Avelox] Allergy palpitation Verified 11/27/24 13:35 s Physical Examination - Vital Signs Vital Signs: Vital Signs Temp Pulse Resp BP Pulse Ox FiO2 11/27/24 16:30 116 H 18 132/74 100 11/27/24 16:00 106 H 20 140/94 100 60 11/27/24 15:52 98.2 F 11/27/24 15:16 96.9 F L 112 H 17 150/86 100 11/27/24 14:02 94.6 F L 134 H 16 162/92 100 11/27/24 13:30 200 H 16 137/74 100 11/27/24 13:00 200 H 16 157/88 100 11/27/24 12:30 154 H 16 179/87 99 11/27/24 12:23 60 11/27/24 12:11 60 11/27/24 11:50 96.5 F L 206 H 26 H 129/87 100 Intake and Output 11/27/24 11/27/24 11/27/24 06:59 14:59 22:59 Intake Total 58.773 Balance 58.773 Intake: Intake, IV Titration 58.773 Amount Insulin Regular 100 unit 18.492 In Sodium Chloride 0.9% 100 ml @ 0.1 UNITS/KG/HR 6.807 mls/hr IV .[id number] [facility] Rx#:[id number] propofoL 1,000 mg In 40.281 Empty Bag 1 bag @ 15 MCG/ KG/MIN 6.124 mls/hr IV . [id number] [facility] Rx#:[id number] Other: Weight 67.4 kg General: Lying in bed and does not appear in acute distress. Lung: Intubated on a ventilator. Neuro: Very limited. Patient is on IV Propofol Patient is thrashing with her arms and family members had to grab her hand to calm her down. Patient is not following commands or verbalizing. According to family members prior to the sedation and intubation they felt she was perking up. Eyes slightly open. Pupils are round, 3mm and reactive to light. No facial weakness with limitation. Results - Laboratory Findings CBC and BMP: 11/27/24 12:16 11/27/24 16:22 Abnormal Lab Findings: Abnormal Labs 11/27/24 11/27/24 11/27/24 11:52 12:16 12:16 WBC 19.84 H Hgb 11.8 L MCHC 31.1 L MPV 12.8 H Immature Gran # 0.83 H Neutrophils # (Manual) 17.46 H APTT 21.0 L VBG pH VBG HCO3 Sodium Potassium Chloride Carbon Dioxide BUN Glucose POC Glucose (mg/dL) >600 H* Plasma Lactic Acid Abelardo Phosphorus Total Bilirubin AST Alkaline Phosphatase Troponin I TSH Free T4 Urine Glucose (UA) Ur Amphetamines Screen 11/27/24 11/27/24 11/27/24 12:16 12:16 12:16 WBC Hgb MCHC MPV Immature Gran # Neutrophils # (Manual) APTT VBG pH VBG HCO3 Sodium 134 L Potassium 6.7 H* Chloride Carbon Dioxide <5 L* BUN 19 H Glucose 640 H* POC Glucose (mg/dL) Plasma Lactic Acid Abelardo 19.9 H* Phosphorus Total Bilirubin 1.7 H AST 54 H Alkaline Phosphatase 349 H Troponin I 0.057 H* TSH <0.015 L Free T4 Urine Glucose (UA) Ur Amphetamines Screen 11/27/24 11/27/24 11/27/24 12:27 12:27 12:34 WBC Hgb MCHC MPV Immature Gran # Neutrophils # (Manual) APTT VBG pH 6.92 L* VBG HCO3 8 L* Sodium Potassium Chloride Carbon Dioxide BUN Glucose POC Glucose (mg/dL) Plasma Lactic Acid Abelardo Phosphorus Total Bilirubin AST Alkaline Phosphatase Troponin I TSH Free T4 Urine Glucose (UA) 4+ H Ur Amphetamines Screen Detected H 11/27/24 11/27/24 11/27/24 14:46 15:36 16:22 WBC Hgb MCHC MPV Immature Gran # Neutrophils # (Manual) APTT VBG pH VBG HCO3 Sodium Potassium Chloride 111 H Carbon Dioxide 7 L* BUN Glucose POC Glucose (mg/dL) 341 H 261 H Plasma Lactic Acid Abelardo Phosphorus Total Bilirubin AST Alkaline Phosphatase Troponin I TSH Free T4 Urine Glucose (UA) Ur Amphetamines Screen 11/27/24 11/27/24 11/27/24 16:22 16:22 16:22 WBC Hgb MCHC MPV Immature Gran # Neutrophils # (Manual) APTT VBG pH VBG HCO3 Sodium Potassium Chloride Carbon Dioxide BUN 20 H Glucose 266 H POC Glucose (mg/dL) Plasma Lactic Acid Abelardo 11.0 H* Phosphorus 5.5 H Total Bilirubin AST Alkaline Phosphatase Troponin I TSH Free T4 4.53 H Urine Glucose (UA) Ur Amphetamines Screen 11/27/24 11/27/24 16:40 17:57 WBC Hgb MCHC MPV Immature Gran # Neutrophils # (Manual) APTT VBG pH VBG HCO3 Sodium Potassium Chloride Carbon Dioxide BUN Glucose POC Glucose (mg/dL) 224 H 138 H Plasma Lactic Acid Abelardo Phosphorus Total Bilirubin AST Alkaline Phosphatase Troponin I TSH Free T4 Urine Glucose (UA) Ur Amphetamines Screen Assessment and Plan Assessment: Patient is a 44-year-old woman with history of type 1 diabetes on insulin pump who presents the emergency department because of altered mental status and was unresponsive. Her sugar level was more than 600 and has abnormal electrolyte imbalance. CT of the head is unremarkable. Mental status due to multifactorial metabolic encephalopathy with electrolyte imbalance as well as abnormal thyroid Acute hyperglycemic with hyperosmotic state History of diabetes mellitus Sinus tachycardia History of hypothyroidism as well as Graves' disease History of alpha 1 antitrypsin deficiency MZ disease paroxysmal atrial fibrillation History of gastroparesis Plan: I ordered ammonia level, vitamin B12, folate I ordered routine EEG Med. Better control of her sugar Recommend control of electrolyte Recommend control of her thyroid. Will defer the rest of the medical management to primary and other specialist Discussed with the patient family members who were at bedside Thank you for the consultation Time with Patient: Greater than 30
[2024-11-27 18:56] LABS: Glucose,Whole Blood 96 mg/dL (70-110)
[2024-11-27] MEDS: SODIUM CHLORIDE 0.9% 1,000 ML IV ONE (18:58)
[2024-11-27 19:31] LABS: African American GFR (CKD) >90 (>60 ml/min/1.73 sqM); Anion Gap 9 mmol/L; Blood Urea Nitrogen 20 mg/dL (7-17); Carbon Dioxide 12 mmol/L (22-30); Chloride 111 mmol/L (98-107); Glucose 452 mg/dL (74-99); Non-African American GFR(CKD) >90 (>60 ml/min/1.73 sqM); Phosphorus 1.7 mg/dL (2.5-4.5); Potassium 5.7 mmol/L (3.5-5.1); Sodium 132 mmol/L (137-145)
[2024-11-27 19:44] LABS: Glucose,Whole Blood 124 mg/dL (70-110)
[2024-11-27 20:16] LABS: Glucose,Whole Blood 136 mg/dL (70-110)
[2024-11-27] MEDS: MIDAZOLAM HCL 50 MG in SODIUM CHLORIDE 0.9% 40 ML IV SCH (20:45)
[2024-11-27 20:58] LABS: Glucose,Whole Blood 138 mg/dL (70-110)
[2024-11-27] MEDS: IPRATROPIUM-ALBUTEROL 3 ML NEB INHALATION SCH (21:06)
[2024-11-27 21:58] LABS: Glucose,Whole Blood 153 mg/dL (70-110)
[2024-11-27 22:06] LABS: ABG Base Excess -9.8 mmol/L; ABG HCO3 15 mmol/L (21-25); ABG Oxygen Saturation >100.0 % (94-97); ABG PCO2 29 mmHg (35-45); ABG PH 7.33 (7.35-7.45); ABG PO2 334 mmHg (83-108); ABG TCO2 16 mmol/L (19-24); Allen Test Performed? Yes
[2024-11-27] MEDS: methIMAzole 5 MG TAB PO SCH (22:43)
[2024-11-27] MEDS: atenoloL 50 MG TAB PO SCH (22:43)
[2024-11-27] MEDS: PANTOPRAZOLE 40 MG TABLET PO SCH (22:44)
[2024-11-27 23:30] LABS: Glucose,Whole Blood 174 mg/dL (70-110)
[2024-11-28 00:17] LABS: ALT 169 U/L (4-34); AST 410 U/L (14-36); African American GFR (CKD) >90 (>60 ml/min/1.73 sqM); Albumin 2.6 g/dL (3.5-5.0); Alkaline Phosphatase 250 U/L (38-126); Anion Gap 8 mmol/L; Blood Urea Nitrogen 23 mg/dL (7-17); Calcium 8.5 mg/dL (8.4-10.2); Carbon Dioxide 14 mmol/L (22-30); Chloride 113 mmol/L (98-107); Glucose 167 mg/dL (74-99); Magnesium 1.6 mg/dL (1.6-2.3); Non-African American GFR(CKD) >90 (>60 ml/min/1.73 sqM); Potassium 4.9 mmol/L (3.5-5.1); Sodium 135 mmol/L (137-145); Total Protein 5.6 g/dL (6.3-8.2)
[2024-11-28 01:07] LABS: Glucose,Whole Blood 172 mg/dL (70-110)
[2024-11-28] MEDS: MAGNESIUM SULFATE-D5W PMX 1 GM in DEXTROSE/WATER 1 100ML.BAG IVPB SCH (01:51)
[2024-11-28 01:58] LABS: Glucose,Whole Blood 163 mg/dL (70-110)
[2024-11-28 04:42] LABS: Glucose,Whole Blood 259 mg/dL (70-110)
--- NOTE | 2024-11-28 04:48 | HP ---
HISTORY AND PHYSICAL HISTORY OF PRESENT ILLNESS: A 44-year-old female with known history of diabetes, DKA, who was admitted with diabetic ketoacidosis. She was unresponsive at home. . Noncompliant with outpatient medicine. She had possibly SVT, did not respond to cardioversion. Heart rate is in the 200s, pH is 6.92, bicarb of 8, sugar 600, lactic acid 19.9. Urine shows ketones. CT of the head shows sinusitis. Chest x-ray showed new opacity in the lungs. Suspect she has pneumonia. FAMILY HISTORY: Mother with hypertension. Father with diabetes mellitus. HOME MEDICATIONS: 1. Adderall 20 b.i.d. 2. Xarelto 10 daily. 3. Tenormin 50 b.i.d. 4. Tapazole 10 mg b.i.d. 5. Airsupra 2 puffs q.6 hours p.r.n. 6. Losartan/HCTZ 50/12.5 daily. 7. Omeprazole 40 b.i.d. PHYSICAL EXAMINATION: VITAL SIGNS: Heart rate when she came in was around 200; now, it is 112; temperature 96.5, blood pressure 129/87 to 152/86. Discussed the case with the family. They wanted off the ventilator as soon as possible. She has been trying to rip that tube out all night per family. SKIN: Warm and dry. HEAD: Normocephalic, atraumatic. CARDIOVASCULAR: Irregularly irregular rhythm. LUNGS: Decreased breath sounds. ABDOMEN: Soft. PSYCHIATRIC: Could not assess as she is on a vent. White count 19.8, hemoglobin is 11.8. Sodium 134, potassium 6.7, BUN is 19, creatinine 0.70. ASSESSMENT: 1. Acute hyperglycemia with hyperosmotic state. 2. Diabetic ketoacidosis. 3. Metabolic encephalopathy. 4. Metabolic acidosis. 5. Type 1 diabetes. 6. Dehydration of severe nature. 7. Hyperthyroidism. 8. Paroxysmal atrial fibrillation versus supraventricular tachycardia. 9. Alpha-1 antitrypsin deficiency. 10. . 11.Gastroparesis. 12.Chronic obstructive pulmonary disease, possible pneumonia. 13.Elevated white count. 14.Abnormal chest x-ray. DKA protocol. Started antibiotics. Wean off vent as soon as possible. MMODL / IJN: [id number] /
[2024-11-28 05:09] LABS: Basophils # (A) 0.03 10*3/uL (0.00-0.10); Basophils % (A) 0.1 %; HCT 28.4 % (37.2-46.3); Lymphocytes # (A) 1.49 10*3/uL (0.90-5.00); Lymphocytes % (A) 6.8 %; MCH 26.8 pg (27.0-32.0); MCHC 31.7 g/dL (32.0-37.0); Mean Platelet Volume 11.8 fL (9.5-12.2); Monocytes # (A) 2.76 10*3/uL (0.20-1.00); Monocytes % (A) 12.5 %; Neutrophils # (A) 17.65 10*3/uL (1.80-7.70); Neutrophils % (A) 80.1 %; Platelet Count 265 10*3/uL (140-440); RBC 3.36 10*6/uL (4.10-5.20); RDW 15.6 % (11.5-14.5); WBC 22.03 10*3/uL (4.50-10.00)
[2024-11-28 05:27] LABS: MCV 84.5 fL (80.0-97.0)
--- NOTE | 2024-11-28 05:27 | CT ---
EXAMINATION TYPE: CT chest wo con DATE OF EXAM: 11/28/2024 COMPARISON: Chest x-ray from yesterday. CT thorax June 28, 2024 CLINICAL INDICATION: Female, 44 years old with history of opacity on cxr/cap, TECHNIQUE: CT scan of the thorax is performed without IV contrast. Automated Exposure Control for Dose Reduction was Utilized. FINDINGS: LUNGS: There is dependent opacities/atelectasis in the left lower lobe with more patchy posterior nod ular opacity could reflect acute infiltrates and/or edema. Right lung is clear. Elevated left hemidia phragm redemonstrated. HEART: Size upper limits of normal. No significant coronary artery calcifications. MEDIASTINUM: Lack of IV contrast is noted to limit evaluation for mediastinal and especially hilar ad enopathy. There are no definitive greater than 1 cm mediastinal lymph nodes. No pericardial effusio n is seen. Enlarged thyroid redemonstrated. There is endotracheal tube terminating at the inferior a ortic knob level. There is orogastric tube extending below diaphragm. OTHER: No additional significant abnormality is seen. IMPRESSION: 1. Persistent posterior left lower lobe acute infiltrate and/or atelectasis. Right lung is clear. 2. Enlarged thyroid gland is redemonstrated. Correlate for diffuse goiter. [facility], , 11/28/2024 5:25 AM
[2024-11-28 05:31] LABS: ALT 170 U/L (4-34); AST 484 U/L (14-36); African American GFR (CKD) >90 (>60 ml/min/1.73 sqM); Albumin 2.5 g/dL (3.5-5.0); Alkaline Phosphatase 265 U/L (38-126); Anion Gap 9 mmol/L; Blood Urea Nitrogen 21 mg/dL (7-17); Calcium 8.8 mg/dL (8.4-10.2); Carbon Dioxide 14 mmol/L (22-30); Chloride 109 mmol/L (98-107); Glucose 225 mg/dL (74-99); Non-African American GFR(CKD) >90 (>60 ml/min/1.73 sqM); Potassium 4.7 mmol/L (3.5-5.1); Sodium 132 mmol/L (137-145); Total Bilirubin 0.9 mg/dL (0.2-1.3); Total Protein 5.4 g/dL (6.3-8.2)
[2024-11-28 05:32] LABS: ABG Base Excess -8.5 mmol/L; ABG HCO3 17 mmol/L (21-25); ABG Oxygen Saturation >100.0 % (94-97); ABG PCO2 32 mmHg (35-45); ABG PH 7.32 (7.35-7.45); ABG PO2 191 mmHg (83-108); ABG TCO2 18 mmol/L (19-24); Allen Test Performed? Yes
--- NOTE | 2024-11-28 05:36 | XR ---
EXAMINATION TYPE: XR chest 1V portable DATE OF EXAM: 11/28/2024 CLINICAL INDICATION: Female, 44 years old with history of mechanical ventilation, progress study. TECHNIQUE: Single AP portable semiupright view of the chest is obtained. COMPARISON: Chest CT from earlier today and older studies. FINDINGS: Improved positioning of endotracheal tube. Persistent elevated left hemidiaphragm. Stable orogastric tube. There is patchy left basilar opacity. Right lung is clear. The cardiac silhouette size is stable and upper limits of normal. The osseous structures are intact. IMPRESSION: Patchy left basilar atelectasis. [facility], , 11/28/2024 5:34 AM
[2024-11-28 06:07] LABS: Glucose,Whole Blood 243 mg/dL (70-110)
[2024-11-28 07:08] LABS: Glucose,Whole Blood 201 mg/dL (70-110)
--- NOTE | 2024-11-28 07:31 | P.CRDCN ---
History of Present Illness Consult date: 11/28/24 History of present illness: PROGRESS NOTE The patient is a 44-year-old female with known history of paroxysmal atrial fibrillation, diabetes mellitus, prior history of DKA who was brought into the hospital with symptoms of unresponsiveness, severe hyperglycemia acidosis. Because of her mental status she was intubated. She was tachycardic, reported to be SVT although the EKG available to me shows atrial flutter with 2-1 conduction. She underwent cardioversion by the EMS and subsequently in the ER and is in sinus mechanism at this time. She was on IV Cardizem that was stopped because of bradycardia. She remains intubated. Her urine output is good. She had a prior history of similar presentation with DKA. The echocardiogram available from 2020 showed a preserved systolic function with mild aortic stenosis and moderate mitral regurgitation. She has been followed by Dr. Santoro and has been anticoagulated as an outpatient because of her paroxysmal atrial fibrillation. Her CT scan of the chest showed left lower lobe infiltrate with enlarged thyroid gland. Her brain CT shows no acute bleed. Her chest x- ray shows the infiltrate. On presentation her blood sugar was 640, plasma lactic acid 19.9. Her troponin was 0.057. This morning her carbon dioxide is 14 and her pH 7.32. Medications: Omeprazole, albuterol, losartan 50-12-1/2 mg daily, methimazole, Xarelto 10 mg daily, insulin, atenolol 50 mg twice a day, Adderall Review of system: Could not be obtained patient is intubated and sedated PHYSICAL EXAMINATION: 44-year-old female, intubated. Blood pressure 110/50 heart rate 110 in sinus Head: Normocephalic, eyes sclera nonicteric Neck: Transmitted murmur bilaterally LUNGS: Clear to auscultation anteriorly HEART: Regular rate and rhythm, S1, S2. No S3. Systolic ejection murmur, 3/6, radiating to the neck ABDOMEN: Soft, no organomegaly EXTREMETIES: No edema LAB: This morning WBC 22.0, hemoglobin 9, pH 7.3, pO2 191, potassium 4.7, BUN 21, creatinine 0.6. Blood sugar 225. AST 484, ALT 170. EKG: Initial EKG shows atrial flutter with 2-1 conduction rate of [address]-T wave changes. Subsequent EKG shows atrial flutter with controlled ventricular response IMPRESSION: 1. Hyperosmotic state with hyperglycemia 2. Metabolic encephalopathy 3. Respiratory failure 4. Atrial flutter /atrial fibrillation, status post cardioversion, back in sinus mechanism. Anticoagulated 5. History of hyperthyroidism on Tapazole 6. Longstanding history of diabetes 7. History of alpha 1 antitrypsin deficiency PLAN: 1. Reinitiate anticoagulation 2. Start beta-osbaldo at a lower dose 3. Obtain an echocardiogram with Doppler, on examination she has findings consistent with aortic stenosis 4. Follow renal functions 5. Depending on her progress further recommendations will be made. Thank you for this consult we will follow with you Past Medical History Past Medical History: Atrial Fibrillation, Diabetes Mellitus, Thyroid Disorder Additional Past Medical History / Comment(s): thyroid disorder History of Any Multi-Drug Resistant Organisms: None Reported Past Surgical History: No Surgical Hx Reported Past Anesthesia/Blood Transfusion Reactions: No Reported Reaction Past Psychological History: No Psychological Hx Reported Smoking Status: Never smoker Past Alcohol Use History: None Reported Past Drug Use History: None Reported - Past Family History Mother Family Medical History: Hypertension Father Family Medical History: Diabetes Mellitus Medications and Allergies Home Medications Medication Instructions Recorded Confirmed Type Dextroamphetamine/Amphetamine 20 mg PO BID@0900,1400 06/25/24 11/27/24 History [Adderall] Rivaroxaban [Xarelto] 10 mg PO DAILY 06/25/24 11/27/24 History atenoloL [Tenormin] 50 mg PO BID 06/25/24 11/27/24 History methIMAzole [Tapazole] 10 mg PO BID 06/25/24 11/27/24 History Albuterol Sulfate/Budesonide 1 puff INHALATION DIRECTED 11/27/24 11/27/24 History [Airsupra 90-80 Mcg Inhaler] Insulin Aspart (For Pump) [NovoLOG 0.01 unit SQ-PUMP CONTINUOUS 11/27/24 11/27/24 History (For Pump)] Insulin Aspart (Niacinamide) 5 units SQ AC-TID 11/27/24 11/27/24 History [Fiasp 100 Unit/ml Flextouch Pen] Losartan-Hctz 50-12.5 mg [Hyzaar 1 tab PO DAILY 11/27/24 11/27/24 History 50-12.5] Omeprazole [PriLOSEC] 40 mg PO BID 11/27/24 11/27/24 History Allergies Allergy/AdvReac Type Severity Reaction Status Date / Time meperidine [From Demerol] Allergy syncope Verified 11/27/24 13:35 moxifloxacin [From Avelox] Allergy palpitation Verified 11/27/24 13:35 s Physical Exam Vitals: Vital Signs Temp Pulse Resp BP Pulse Ox FiO2 11/28/24 07:00 124 H 22 146/64 98 11/28/24 06:00 123 H 21 137/63 98 11/28/24 05:33 30 11/28/24 05:00 118 H 22 134/68 99 11/28/24 04:15 40 11/28/24 04:00 99.6 F 117 H 16 126/58 99 40 11/28/24 03:00 121 H 16 99 11/28/24 02:00 126 H 16 137/63 98 11/28/24 01:00 124 H 21 126/59 99 11/28/24 00:24 40 11/28/24 00:00 100.0 F H 128 H 16 111/56 99 40 11/27/24 23:00 89 19 115/88 99 11/27/24 22:10 40 11/27/24 22:05 98 32 H 115/88 99 11/27/24 22:00 93 16 110/62 99 11/27/24 21:00 99.0 F 98 16 110/53 99 60 11/27/24 20:15 16 60 11/27/24 19:51 60 11/27/24 19:45 106 H 18 116/71 100 11/27/24 19:30 108 H 18 88/41 100 11/27/24 19:00 120 H 18 109/49 99 11/27/24 18:18 99.5 F 112 H 18 102/56 100 11/27/24 17:30 128 H 20 123/61 100 11/27/24 17:00 125 H 20 120/62 100 11/27/24 16:30 116 H 18 132/74 100 11/27/24 16:00 106 H 20 140/94 100 60 11/27/24 15:52 98.2 F 11/27/24 15:16 96.9 F L 112 H 17 150/86 100 11/27/24 14:02 94.6 F L 134 H 16 162/92 100 11/27/24 13:30 200 H 16 137/74 100 11/27/24 13:00 200 H 16 157/88 100 11/27/24 12:30 154 H 16 179/87 99 11/27/24 12:23 60 11/27/24 12:11 60 11/27/24 11:50 96.5 F L 206 H 26 H 129/87 100 Intake and Output 11/27/24 11/28/24 11/28/24 22:59 06:59 14:59 Intake Total 553.276 6393.808 Output Total 525 1325 Balance 0.217 545.808 Intake: IV 300 1365 0.9 ART LINE PRESSURE BAG 15 D5-0.45% NaCl with KCl 300 1350 20Meq/l 1,000 ml @ 150 mls/hr IV .Q6H40M [facility] Rx# :[id number] Intake, IV Titration 225.217 505.808 Amount Diltiazem 125 mg In 17.583 52.167 Sodium Chloride 0.9% 100 ml @ 5 MG/HR 5 mls/hr IV .Q24H [facility] Rx#:[id number] Insulin Regular 100 unit 35.795 22.432 In Sodium Chloride 0.9% 100 ml @ 0.1 UNITS/KG/HR 6.807 mls/hr IV .[id number] [facility] Rx#:[id number] Magnesium Sulfate-D5w Pmx 200 1 gm In Dextrose/Water 1 100ml.bag @ 100 mls/hr IVPB Q1H [facility] Rx#: [id number] Midazolam HCl 50 mg In 2.25 33.733 Sodium Chloride 0.9% 40 ml @ 3 MG/HR 3 mls/hr IV .[id number] [facility] Rx#: [id number] cefTRIAXone 1 gm In 50 Sodium Chloride 0.9% 50 ml @ 100 mls/hr IVPB Q12HR [facility] Rx#:[id number] propofoL 1,000 mg In 169.589 147.476 Empty Bag 1 bag @ 15 MCG/ KG/MIN 6.124 mls/hr IV . [id number] [facility] Rx#:[id number] Output: Urine 525 1325 Other: Voiding Method Indwelling Catheter Indwelling Catheter Weight 72.3 kg ABP, PAP, CO, CI - Last 8 Hours Arterial Blood Pressure 110/42 Arterial Blood Pressure 118/45 Arterial Blood Pressure 118/44 Arterial Blood Pressure 108/44 Arterial Blood Pressure 114/45 Arterial Blood Pressure 107/42 Results 11/28/24 04:35 11/28/24 04:35 Cardiac Enzymes 11/27/24 11/27/24 11/27/24 Range/Units 12:16 12:16 23:45 AST 54 H 410 H (14-36) U/L Troponin I 0.057 H* (0.000-0.034) ng/mL 11/28/24 Range/Units 04:35 AST 484 H (14-36) U/L Troponin I (0.000-0.034) ng/mL Coagulation 11/27/24 Range/Units 12:16 PT 11.4 (10.0-12.5) sec APTT 21.0 L (22.0-30.0) sec CBC 11/27/24 11/28/24 Range/Units 12:16 04:35 WBC 19.84 H 22.03 H (4.50-10.00) 10*3/uL RBC 4.18 3.36 L (4.10-5.20) 10*6/uL Hgb 11.8 L 9.0 L D (12.0-15.0) g/dL Hct 37.9 28.4 L (37.2-46.3) % Plt Count 316 265 (140-440) 10*3/uL Comprehensive Metabolic Panel 11/27/24 11/27/24 11/27/24 Range/Units 12:16 16:22 16:22 Sodium 134 L 140 (137-145) mmol/L Potassium 6.7 H* 4.1 (3.5-5.1) mmol/L Chloride 98 111 H (98-107) mmol/L Carbon Dioxide <5 L* 7 L* (22-30) mmol/L BUN 19 H 20 H (7-17) mg/dL Creatinine 0.70 0.74 (0.52-1.04) mg/dL Glucose 640 H* 266 H (74-99) mg/dL Calcium 10.1 (8.4-10.2) mg/dL AST 54 H (14-36) U/L ALT 31 (4-34) U/L Alkaline Phosphatase 349 H (38-126) U/L Total Protein 7.6 (6.3-8.2) g/dL Albumin 3.9 (3.5-5.0) g/dL 11/27/24 11/27/24 11/28/24 Range/Units 18:41 23:45 04:35 Sodium 132 L 135 L 132 L (137-145) mmol/L Potassium 5.7 H 4.9 4.7 (3.5-5.1) mmol/L Chloride 111 H 113 H 109 H (98-107) mmol/L Carbon Dioxide 12 L 14 L 14 L (22-30) mmol/L BUN 20 H 23 H 21 H (7-17) mg/dL Creatinine 0.62 0.64 0.60 (0.52-1.04) mg/dL Glucose 452 H 167 H 225 H (74-99) mg/dL Calcium 8.5 8.8 (8.4-10.2) mg/dL AST 410 H 484 H (14-36) U/L ALT 169 H 170 H (4-34) U/L Alkaline Phosphatase 250 H 265 H (38-126) U/L Total Protein 5.6 L 5.4 L (6.3-8.2) g/dL Albumin 2.6 L 2.5 L (3.5-5.0) g/dL Current Medications Generic Name Dose Route Start Last Admin Trade Name Freq PRN Reason Stop Dose Admin Albuterol/Ipratropium 3 ml 11/27/24 20:00 11/27/24 21:06 Ipratropium-Albuterol 3 Ml Neb INHALATION Not Given RT-TID [facility] Atenolol 50 mg 11/27/24 21:00 11/27/24 22:43 Atenolol 50 Mg Tab PO Not Given BID [facility] Dextrose/Water 25 ml 11/27/24 13:02 Dextrose 50% Syringe 50 Ml IVP PER PROTOCOL PRN Hypoglycemia Protocol Dextrose/Water 50 ml 11/27/24 13:02 Dextrose 50% Syringe 50 Ml IVP PER PROTOCOL PRN Hypoglycemia Protocol Propofol 1,000 mg/ IV Solution 100 mls @ 6.124 mls/hr 11/27/24 12:15 11/28/24 06:07 IV 50 mcg/kg/min .[id number] [facility] 20.412 mls/hr Administration Protocol 15 MCG/KG/MIN Insulin Human Regular 100 unit 101 mls @ 6.807 mls/hr 11/27/24 13:30 11/28/24 06:27 / Sodium Chloride IV 0.04 units/kg/hr .[id number] [facility] 2.95 mls/hr Administration Protocol 0.1 UNITS/KG/HR Potassium Chloride/Dextrose/Sod Cl 1,000 mls @ 150 mls/hr 11/27/24 17:00 11/28/24 06:08 D5%-1/2ns-Kcl 20 Meq/L Iv Solution IV 150 mls/hr .Q6H40M [facility] Administration Diltiazem HCl 125 mg/ Sodium 125 mls @ 5 mls/hr 11/27/24 14:30 11/27/24 23:34 Chloride IV 0 mg/hr .Q24H [facility] 0 mls/hr Infusion 5 MG/HR Midazolam HCl 50 mg/ Sodium 50 mls @ 3 mls/hr 11/27/24 18:30 11/28/24 05:56 Chloride IV 3 mg/hr .[id number] [facility] 3 mls/hr Titration Protocol 3 MG/HR Ceftriaxone Sodium 1 gm/ 50 mls @ 100 mls/hr 11/27/24 23:30 11/28/24 00:47 Sodium Chloride IVPB 100 mls/hr Q12HR [facility] Administration Protocol Methimazole 10 mg 11/27/24 21:00 11/28/24 00:59 Methimazole 5 Mg Tab PO 10 mg BID [facility] Administration Miscellaneous Information 1 each 11/27/24 13:02 Magnesium Replacement Protocol 1 Each Misc MISCELLANE DAILY PRN Per Protocol Protocol Miscellaneous Information 1 each 11/27/24 13:02 Potassium Replacement Protocol 1 Each Misc MISCELLANE DAILY PRN Per Protocol Naloxone HCl 0.2 mg 11/27/24 14:17 Naloxone 0.4 Mg/Ml 1 Ml Vial IV Q2M PRN Opioid Reversal Pantoprazole Sodium 40 mg 11/27/24 21:00 11/27/24 22:44 Pantoprazole 40 Mg Tablet PO Not Given BID [facility] Rivaroxaban 10 mg 11/28/24 09:00 Rivaroxaban 10 Mg Tab PO DAILY [facility] Protocol Intake and Output 11/27/24 11/28/24 11/28/24 22:59 06:59 14:59 Intake Total 958.717 4654.808 Output Total 525 1325 Balance 0.217 545.808 Intake: IV 300 1365 0.9 ART LINE PRESSURE BAG 15 D5-0.45% NaCl with KCl 300 1350 20Meq/l 1,000 ml @ 150 mls/hr IV .Q6H40M [facility] Rx# :[id number] Intake, IV Titration 225.217 505.808 Amount Diltiazem 125 mg In 17.583 52.167 Sodium Chloride 0.9% 100 ml @ 5 MG/HR 5 mls/hr IV .Q24H [facility] Rx#:[id number] Insulin Regular 100 unit 35.795 22.432 In Sodium Chloride 0.9% 100 ml @ 0.1 UNITS/KG/HR 6.807 mls/hr IV .[id number] [facility] Rx#:[id number] Magnesium Sulfate-D5w Pmx 200 1 gm In Dextrose/Water 1 100ml.bag @ 100 mls/hr IVPB Q1H [facility] Rx#: [id number] Midazolam HCl 50 mg In 2.25 33.733 Sodium Chloride 0.9% 40 ml @ 3 MG/HR 3 mls/hr IV .[id number] [facility] Rx#: [id number] cefTRIAXone 1 gm In 50 Sodium Chloride 0.9% 50 ml @ 100 mls/hr IVPB Q12HR [facility] Rx#:[id number] propofoL 1,000 mg In 169.589 147.476 Empty Bag 1 bag @ 15 MCG/ KG/MIN 6.124 mls/hr IV . [id number] [facility] Rx#:[id number] Output: Urine 525 1325 Other: Voiding Method Indwelling Catheter Indwelling Catheter Weight 72.3 kg 11/28/24 04:35 11/28/24 04:35
[2024-11-28 08:50] LABS: Glucose,Whole Blood 195 mg/dL (70-110)
[2024-11-28] MEDS ORDERED: RIVAROXABAN 10 MG TAB PO SCH (09:00)
[2024-11-28 09:13] LABS: ALT 168 U/L (4-34); AST 463 U/L (14-36); African American GFR (CKD) >90 (>60 ml/min/1.73 sqM); Albumin 2.5 g/dL (3.5-5.0); Alkaline Phosphatase 259 U/L (38-126); Anion Gap 6 mmol/L; Blood Urea Nitrogen 19 mg/dL (7-17); Calcium 8.8 mg/dL (8.4-10.2); Carbon Dioxide 17 mmol/L (22-30); Chloride 111 mmol/L (98-107); Glucose 192 mg/dL (74-99); Magnesium 2.1 mg/dL (1.6-2.3); Non-African American GFR(CKD) >90 (>60 ml/min/1.73 sqM); Potassium 4.6 mmol/L (3.5-5.1); Sodium 134 mmol/L (137-145); Total Bilirubin 0.9 mg/dL (0.2-1.3); Total Protein 5.4 g/dL (6.3-8.2)
[2024-11-28 09:21] LABS: Glucose,Whole Blood 190 mg/dL (70-110)
[2024-11-28 09:21] LABS: HGB 9.1 g/dL (12.0-15.0); MCH 27.6 pg (27.0-32.0); MCHC 32.5 g/dL (32.0-37.0); MCV 84.8 fL (80.0-97.0); Mean Platelet Volume 11.8 fL (9.5-12.2); Platelet Count 252 10*3/uL (140-440); RDW 15.6 % (11.5-14.5); WBC 19.67 10*3/uL (4.50-10.00)
[2024-11-28 09:57] LABS: Glucose,Whole Blood 191 mg/dL (70-110)
[2024-11-28] MEDS: RIVAROXABAN 20 MG TAB PO SCH (10:18)
[2024-11-28] MEDS: atenoloL 25 MG TAB PO SCH (10:18)
[2024-11-28 11:02] LABS: Glucose,Whole Blood 184 mg/dL (70-110)
[2024-11-28 12:04] LABS: Glucose,Whole Blood 178 mg/dL (70-110)
--- NOTE | 2024-11-28 12:21 | P.PN ---
Subjective Progress Note Date: 11/28/24 Principal diagnosis: Acute hyperglycemia with hyperosmolar state and acute metabolic encephalopathy with acute hypoxic respiratory failure requiring intubation mechanical ventilati on. This is a 44-year-old female with known history of diabetes, patient had previous episode of DKA back in June of 2024, and she was seen by Dr. Gonzalez on consultation at the time. This time the patient seems to have a similar presentation she was brought into the ER with altered mental status, patient was unresponsive at home, and she was seen by EMS with what seems to be a picture of SVT. Patient did not respond to cardioversion by EMS. Heart rate rate was in the 200 range, patient was brought into the ER, and as soon as she arrived the patient was noted to be in distress, intubated and mechanically ventilated by the ER physician. Workup in the ER included venous blood gas s howing a bicarb of 8 and a pH of 6.92, she had blood sugar as high as 600+, lactic acid was as high as 19.9, urinalysis showed no evidence of ketones in the urine. CT of the brain showed no evidence of acute disease except for mild inflammatory changes in the left maxillary sinus and it also showed mild to moderate generalized atrophy. Chest x-ray showed endotracheal tube to be low- lying seems to be at the level just above the mae apparently this was adjusted already by the ER physician based on her initial chest x-ray. Could not obtain any history from the patient as she seems to be obtunded and unresponsive to any stimuli. Has recommended treatment as per DKA protocol, I also recommended CT of the brain to be done which came back nondiagnostic. In the meantime the patient is receiving fluid boluses so far she has received 2- 1/2 L of 0.9 normal saline and I recommended starting the patient on insulin drip. Patient was seen today on 11/28/2024, patient remains in the ICU, we admitted the patient yesterday from the ER. Remains intubated and mechanically ventilated, on assist-control rate 16 tidal volume 450 FiO2 30% and PEEP of 5 ABG showed a pO2 of 191 pCO2 32 pH of 7.32. Patient is on multiple drips including insulin drip at 2.95 units/h propofol at 50 mcg/kg/min Versed at 3 mg/h D5W at 120 cc/h. Patient is sedated, unable to assess mental status, however I plan to hold sedation today, address mental status off sedation, and if the patient continues to do well may check weaning parameters for possible extubation today if the patient does well from the neurological perspective. Her labs today showed leukocytosis with WBC of 19.67 hemoglobin 9.1. Liver enzymes are elevated. Her electrolytes are normal bicarb is 17 anion gap is resolved. Renal profile is no rmal. Objective - Vital Signs Vital signs: Vital Signs Temp 99.1 F 11/28/24 08:00 Pulse 107 H 11/28/24 11:00 Resp 21 11/28/24 11:00 BP 146/67 11/28/24 11:00 Pulse Ox 98 11/28/24 11:00 FiO2 30 11/28/24 11:19 Intake & Output 11/27/24 11/28/24 11/28/24 18:59 06:59 18:59 Intake Total 647.443 0212.073 846.075 Output Total 1850 590 Balance 132.952 413.073 256.075 Weight 67.4 kg 72.3 kg Intake: IV 1665 612 0.9 ART LINE PRESSURE BAG 15 12 D5-0.45% NaCl with KCl 1650 600 20Meq/l 1,000 ml @ 150 mls/hr IV .Q6H40M [facility] Rx# :[id number] Intake, IV Titration 132.952 598.073 234.075 Amount Diltiazem 125 mg In 17.583 52.167 Sodium Chloride 0.9% 100 ml @ 5 MG/HR 5 mls/hr IV .Q24H [facility] Rx#:[id number] Insulin Regular 100 unit 35.795 22.432 In Sodium Chloride 0.9% 100 ml @ 0.1 UNITS/KG/HR 6.807 mls/hr IV .[id number] [facility] Rx#:[id number] Magnesium Sulfate-D5w Pmx 200 1 gm In Dextrose/Water 1 100ml.bag @ 100 mls/hr IVPB Q1H [facility] Rx#: [id number] Midazolam HCl 50 mg In 35.983 10.350 Sodium Chloride 0.9% 40 ml @ 3 MG/HR 3 mls/hr IV .[id number] [facility] Rx#: [id number] Sodium Chloride 0.9% 1, 80 000 ml @ 999 mls/hr IV . Q1H1M [facility] Rx#:[id number] cefTRIAXone 1 gm In 50 50 Sodium Chloride 0.9% 50 ml @ 100 mls/hr IVPB Q12HR COUNTS INCLUDE 234 BEDS AT THE [facility] Rx#:[id number] propofoL 1,000 mg In 79.574 237.491 93.725 Empty Bag 1 bag @ 15 MCG/ KG/MIN 6.124 mls/hr IV . [id number] [facility] Rx#:[id number] Output: Urine 1850 590 Other: Voiding Method Indwelling Catheter Indwelling Catheter ABP, PAP, CO, CI - Last Documented Arterial Blood Pressure 119/58 - Exam General: Revealed a 44-year-old female intubated mechanically ventilated, unresponsive to any stimuli. On insulin drip. Derm: warm, dry, intact Head: atraumatic, normocephalic, symmetric, endotracheal tube is intact. Eyes: EOMI, anicteric sclera Mouth: no lip lesion, dry mucus membranes Cardiovascular: Tachycardic, irregular rhythm, no S3 gallop. Lungs: Diminished breath sound bilaterally no rhonchi no wheezes Abdominal: soft, diffuse nonspecific tenderness to palpataion, no appreciable organomegaly Extremities: No clubbing edema or cyanosis Neuro: Could not assess, patient is intubated mechanically ventilated sedated Psych: Could not assess - Labs CBC & Chem 7: 11/28/24 08:50 11/28/24 08:50 Labs: Abnormal Lab Results - Last 24 Hours (Table) 11/27/24 11/27/24 11/27/24 Range/Units 12:16 12:16 12:16 WBC 19.84 H (4.50-10.00) 10*3/uL RBC (4.10-5.20) 10*6/uL Hgb 11.8 L (12.0-15.0) g/dL Hct (37.2-46.3) % MCH (27.0-32.0) pg MCHC 31.1 L (32.0-37.0) g/dL MPV 12.8 H (9.5-12.2) fL Immature Gran # 0.83 H (0.00-0.04) 10*3/uL Neutrophils # (1.80-7.70) 10*3/uL Neutrophils # (Manual) 17.46 H (1.3-7.7) k/uL Monocytes # (0.20-1.00) 10*3/uL Eosinophils # (0.04-0.35) 10*3/uL APTT 21.0 L (22.0-30.0) sec ABG pH (7.35-7.45) ABG pCO2 (35-45) mmHg ABG pO2 (83-108) mmHg ABG HCO3 (21-25) mmol/L ABG Total CO2 (19-24) mmol/L ABG O2 Saturation (94-97) % VBG pH (7.31-7.41) VBG HCO3 (24-28) mmol/L Hemoglobin (11.4-16.0) gm/dL Sodium 134 L (137-145) mmol/L Potassium 6.7 H* (3.5-5.1) mmol/L Chloride (98-107) mmol/L Carbon Dioxide <5 L* (22-30) mmol/L BUN 19 H (7-17) mg/dL Glucose 640 H* (74-99) mg/dL POC Glucose (mg/dL) (70-110) mg/dL Plasma Lactic Acid Abelardo (0.7-2.0) mmol/L Phosphorus (2.5-4.5) mg/dL Total Bilirubin 1.7 H (0.2-1.3) mg/dL AST 54 H (14-36) U/L ALT (4-34) U/L Alkaline Phosphatase 349 H (38-126) U/L Troponin I (0.000-0.034) ng/mL Total Protein (6.3-8.2) g/dL Albumin (3.5-5.0) g/dL Procalcitonin (0.02-0.50) ng/mL TSH <0.015 L (0.465-4.680) mIU/L Free T4 (0.78-2.19) ng/dL Urine Glucose (UA) (Negative) Ur Amphetamines Screen (NotDetected) 11/27/24 11/27/24 11/27/24 Range/Units 12:16 12:16 12:27 WBC (4.50-10.00) 10*3/uL RBC (4.10-5.20) 10*6/uL Hgb (12.0-15.0) g/dL Hct (37.2-46.3) % MCH (27.0-32.0) pg MCHC (32.0-37.0) g/dL MPV (9.5-12.2) fL Immature Gran # (0.00-0.04) 10*3/uL Neutrophils # (1.80-7.70) 10*3/uL Neutrophils # (Manual) (1.3-7.7) k/uL Monocytes # (0.20-1.00) 10*3/uL Eosinophils # (0.04-0.35) 10*3/uL APTT (22.0-30.0) sec ABG pH (7.35-7.45) ABG pCO2 (35-45) mmHg ABG pO2 (83-108) mmHg ABG HCO3 (21-25) mmol/L ABG Total CO2 (19-24) mmol/L ABG O2 Saturation (94-97) % VBG pH (7.31-7.41) VBG HCO3 (24-28) mmol/L Hemoglobin (11.4-16.0) gm/dL Sodium (137-145) mmol/L Potassium (3.5-5.1) mmol/L Chloride (98-107) mmol/L Carbon Dioxide (22-30) mmol/L BUN (7-17) mg/dL Glucose (74-99) mg/dL POC Glucose (mg/dL) (70-110) mg/dL Plasma Lactic Acid Abelardo 19.9 H* (0.7-2.0) mmol/L Phosphorus (2.5-4.5) mg/dL Total Bilirubin (0.2-1.3) mg/dL AST (14-36) U/L ALT (4-34) U/L Alkaline Phosphatase (38-126) U/L Troponin I 0.057 H* (0.000-0.034) ng/mL Total Protein (6.3-8.2) g/dL Albumin (3.5-5.0) g/dL Procalcitonin (0.02-0.50) ng/mL TSH (0.465-4.680) mIU/L Free T4 (0.78-2.19) ng/dL Urine Glucose (UA) 4+ H (Negative) Ur Amphetamines Screen (NotDetected) 04/09/25 04/09/25 04/09/25 Range/Units 12:27 12:34 14:46 WBC (4.50-10.00) 10*3/uL RBC (4.10-5.20) 10*6/uL Hgb (12.0-15.0) g/dL Hct (37.2-46.3) % MCH (27.0-32.0) pg MCHC (32.0-37.0) g/dL MPV (9.5-12.2) fL Immature Gran # (0.00-0.04) 10*3/uL Neutrophils # (1.80-7.70) 10*3/uL Neutrophils # (Manual) (1.3-7.7) k/uL Monocytes # (0.20-1.00) 10*3/uL Eosinophils # (0.04-0.35) 10*3/uL APTT (22.0-30.0) sec ABG pH (7.35-7.45) ABG pCO2 (35-45) mmHg ABG pO2 (83-108) mmHg ABG HCO3 (21-25) mmol/L ABG Total CO2 (19-24) mmol/L ABG O2 Saturation (94-97) % VBG pH 6.92 L* (7.31-7.41) VBG HCO3 8 L* (24-28) mmol/L Hemoglobin (11.4-16.0) gm/dL Sodium (137-145) mmol/L Potassium (3.5-5.1) mmol/L Chloride (98-107) mmol/L Carbon Dioxide (22-30) mmol/L BUN (7-17) mg/dL Glucose (74-99) mg/dL POC Glucose (mg/dL) 341 H (70-110) mg/dL Plasma Lactic Acid Abelardo (0.7-2.0) mmol/L Phosphorus (2.5-4.5) mg/dL Total Bilirubin (0.2-1.3) mg/dL AST (14-36) U/L ALT (4-34) U/L Alkaline Phosphatase (38-126) U/L Troponin I (0.000-0.034) ng/mL Total Protein (6.3-8.2) g/dL Albumin (3.5-5.0) g/dL Procalcitonin (0.02-0.50) ng/mL TSH (0.465-4.680) mIU/L Free T4 (0.78-2.19) ng/dL Urine Glucose (UA) (Negative) Ur Amphetamines Screen Detected H (NotDetected) 11/27/24 11/27/24 11/27/24 Range/Units 15:36 16:22 16:22 WBC (4.50-10.00) 10*3/uL RBC (4.10-5.20) 10*6/uL Hgb (12.0-15.0) g/dL Hct (37.2-46.3) % MCH (27.0-32.0) pg MCHC (32.0-37.0) g/dL MPV (9.5-12.2) fL Immature Gran # (0.00-0.04) 10*3/uL Neutrophils # (1.80-7.70) 10*3/uL Neutrophils # (Manual) (1.3-7.7) k/uL Monocytes # (0.20-1.00) 10*3/uL Eosinophils # (0.04-0.35) 10*3/uL APTT (22.0-30.0) sec ABG pH (7.35-7.45) ABG pCO2 (35-45) mmHg ABG pO2 (83-108) mmHg ABG HCO3 (21-25) mmol/L ABG Total CO2 (19-24) mmol/L ABG O2 Saturation (94-97) % VBG pH (7.31-7.41) VBG HCO3 (24-28) mmol/L Hemoglobin (11.4-16.0) gm/dL Sodium (137-145) mmol/L Potassium (3.5-5.1) mmol/L Chloride 111 H (98-107) mmol/L Carbon Dioxide 7 L* (22-30) mmol/L BUN (7-17) mg/dL Glucose (74-99) mg/dL POC Glucose (mg/dL) 261 H (70-110) mg/dL Plasma Lactic Acid Abelardo (0.7-2.0) mmol/L Phosphorus 5.5 H (2.5-4.5) mg/dL Total Bilirubin (0.2-1.3) mg/dL AST (14-36) U/L ALT (4-34) U/L Alkaline Phosphatase (38-126) U/L Troponin I (0.000-0.034) ng/mL Total Protein (6.3-8.2) g/dL Albumin (3.5-5.0) g/dL Procalcitonin (0.02-0.50) ng/mL TSH (0.465-4.680) mIU/L Free T4 (0.78-2.19) ng/dL Urine Glucose (UA) (Negative) Ur Amphetamines Screen (NotDetected) 11/27/24 11/27/24 11/27/24 Range/Units 16:22 16:22 16:40 WBC (4.50-10.00) 10*3/uL RBC (4.10-5.20) 10*6/uL Hgb (12.0-15.0) g/dL Hct (37.2-46.3) % MCH (27.0-32.0) pg MCHC (32.0-37.0) g/dL MPV (9.5-12.2) fL Immature Gran # (0.00-0.04) 10*3/uL Neutrophils # (1.80-7.70) 10*3/uL Neutrophils # (Manual) (1.3-7.7) k/uL Monocytes # (0.20-1.00) 10*3/uL Eosinophils # (0.04-0.35) 10*3/uL APTT (22.0-30.0) sec ABG pH (7.35-7.45) ABG pCO2 (35-45) mmHg ABG pO2 (83-108) mmHg ABG HCO3 (21-25) mmol/L ABG Total CO2 (19-24) mmol/L ABG O2 Saturation (94-97) % VBG pH (7.31-7.41) VBG HCO3 (24-28) mmol/L Hemoglobin (11.4-16.0) gm/dL Sodium (137-145) mmol/L Potassium (3.5-5.1) mmol/L Chloride (98-107) mmol/L Carbon Dioxide (22-30) mmol/L BUN 20 H (7-17) mg/dL Glucose 266 H (74-99) mg/dL POC Glucose (mg/dL) 224 H (70-110) mg/dL Plasma Lactic Acid Abelardo 11.0 H* (0.7-2.0) mmol/L Phosphorus (2.5-4.5) mg/dL Total Bilirubin (0.2-1.3) mg/dL AST (14-36) U/L ALT (4-34) U/L Alkaline Phosphatase (38-126) U/L Troponin I (0.000-0.034) ng/mL Total Protein (6.3-8.2) g/dL Albumin (3.5-5.0) g/dL Procalcitonin (0.02-0.50) ng/mL TSH (0.465-4.680) mIU/L Free T4 4.53 H (0.78-2.19) ng/dL Urine Glucose (UA) (Negative) Ur Amphetamines Screen (NotDetected) 11/27/24 11/27/24 11/27/24 Range/Units 17:57 18:41 18:41 WBC (4.50-10.00) 10*3/uL RBC (4.10-5.20) 10*6/uL Hgb (12.0-15.0) g/dL Hct (37.2-46.3) % MCH (27.0-32.0) pg MCHC (32.0-37.0) g/dL MPV (9.5-12.2) fL Immature Gran # (0.00-0.04) 10*3/uL Neutrophils # (1.80-7.70) 10*3/uL Neutrophils # (Manual) (1.3-7.7) k/uL Monocytes # (0.20-1.00) 10*3/uL Eosinophils # (0.04-0.35) 10*3/uL APTT (22.0-30.0) sec ABG pH (7.35-7.45) ABG pCO2 (35-45) mmHg ABG pO2 (83-108) mmHg ABG HCO3 (21-25) mmol/L ABG Total CO2 (19-24) mmol/L ABG O2 Saturation (94-97) % VBG pH (7.31-7.41) VBG HCO3 (24-28) mmol/L Hemoglobin (11.4-16.0) gm/dL Sodium 132 L (137-145) mmol/L Potassium 5.7 H (3.5-5.1) mmol/L Chloride 111 H (98-107) mmol/L Carbon Dioxide 12 L (22-30) mmol/L BUN 20 H (7-17) mg/dL Glucose 452 H (74-99) mg/dL POC Glucose (mg/dL) 138 H (70-110) mg/dL Plasma Lactic Acid Abelardo (0.7-2.0) mmol/L Phosphorus 1.7 L (2.5-4.5) mg/dL Total Bilirubin (0.2-1.3) mg/dL AST (14-36) U/L ALT (4-34) U/L Alkaline Phosphatase (38-126) U/L Troponin I (0.000-0.034) ng/mL Total Protein (6.3-8.2) g/dL Albumin (3.5-5.0) g/dL Procalcitonin 19.30 H (0.02-0.50) ng/mL TSH (0.465-4.680) mIU/L Free T4 (0.78-2.19) ng/dL Urine Glucose (UA) (Negative) Ur Amphetamines Screen (NotDetected) 11/27/24 11/27/24 11/27/24 Range/Units 19:42 20:15 20:55 WBC (4.50-10.00) 10*3/uL RBC (4.10-5.20) 10*6/uL Hgb (12.0-15.0) g/dL Hct (37.2-46.3) % MCH (27.0-32.0) pg MCHC (32.0-37.0) g/dL MPV (9.5-12.2) fL Immature Gran # (0.00-0.04) 10*3/uL Neutrophils # (1.80-7.70) 10*3/uL Neutrophils # (Manual) (1.3-7.7) k/uL Monocytes # (0.20-1.00) 10*3/uL Eosinophils # (0.04-0.35) 10*3/uL APTT (22.0-30.0) sec ABG pH (7.35-7.45) ABG pCO2 (35-45) mmHg ABG pO2 (83-108) mmHg ABG HCO3 (21-25) mmol/L ABG Total CO2 (19-24) mmol/L ABG O2 Saturation (94-97) % VBG pH (7.31-7.41) VBG HCO3 (24-28) mmol/L Hemoglobin (11.4-16.0) gm/dL Sodium (137-145) mmol/L Potassium (3.5-5.1) mmol/L Chloride (98-107) mmol/L Carbon Dioxide (22-30) mmol/L BUN (7-17) mg/dL Glucose (74-99) mg/dL POC Glucose (mg/dL) 124 H 136 H 138 H (70-110) mg/dL Plasma Lactic Acid Abelardo (0.7-2.0) mmol/L Phosphorus (2.5-4.5) mg/dL Total Bilirubin (0.2-1.3) mg/dL AST (14-36) U/L ALT (4-34) U/L Alkaline Phosphatase (38-126) U/L Troponin I (0.000-0.034) ng/mL Total Protein (6.3-8.2) g/dL Albumin (3.5-5.0) g/dL Procalcitonin (0.02-0.50) ng/mL TSH (0.465-4.680) mIU/L Free T4 (0.78-2.19) ng/dL Urine Glucose (UA) (Negative) Ur Amphetamines Screen (NotDetected) 11/27/24 11/27/24 11/27/24 Range/Units 21:33 21:56 22:04 WBC (4.50-10.00) 10*3/uL RBC (4.10-5.20) 10*6/uL Hgb (12.0-15.0) g/dL Hct (37.2-46.3) % MCH (27.0-32.0) pg MCHC (32.0-37.0) g/dL MPV (9.5-12.2) fL Immature Gran # (0.00-0.04) 10*3/uL Neutrophils # (1.80-7.70) 10*3/uL Neutrophils # (Manual) (1.3-7.7) k/uL Monocytes # (0.20-1.00) 10*3/uL Eosinophils # (0.04-0.35) 10*3/uL APTT (22.0-30.0) sec ABG pH 7.33 L (7.35-7.45) ABG pCO2 29 L (35-45) mmHg ABG pO2 334 H (83-108) mmHg ABG HCO3 15 L (21-25) mmol/L ABG Total CO2 16 L (19-24) mmol/L ABG O2 Saturation >100.0 H (94-97) % VBG pH (7.31-7.41) VBG HCO3 (24-28) mmol/L Hemoglobin 9.7 L (11.4-16.0) gm/dL Sodium (137-145) mmol/L Potassium (3.5-5.1) mmol/L Chloride (98-107) mmol/L Carbon Dioxide (22-30) mmol/L BUN (7-17) mg/dL Glucose (74-99) mg/dL POC Glucose (mg/dL) 153 H (70-110) mg/dL Plasma Lactic Acid Abelardo 3.2 H* (0.7-2.0) mmol/L Phosphorus (2.5-4.5) mg/dL Total Bilirubin (0.2-1.3) mg/dL AST (14-36) U/L ALT (4-34) U/L Alkaline Phosphatase (38-126) U/L Troponin I (0.000-0.034) ng/mL Total Protein (6.3-8.2) g/dL Albumin (3.5-5.0) g/dL Procalcitonin (0.02-0.50) ng/mL TSH (0.465-4.680) mIU/L Free T4 (0.78-2.19) ng/dL Urine Glucose (UA) (Negative) Ur Amphetamines Screen (NotDetected) 11/27/24 11/27/24 11/28/24 Range/Units 23:28 23:45 01:00 WBC (4.50-10.00) 10*3/uL RBC (4.10-5.20) 10*6/uL Hgb (12.0-15.0) g/dL Hct (37.2-46.3) % MCH (27.0-32.0) pg MCHC (32.0-37.0) g/dL MPV (9.5-12.2) fL Immature Gran # (0.00-0.04) 10*3/uL Neutrophils # (1.80-7.70) 10*3/uL Neutrophils # (Manual) (1.3-7.7) k/uL Monocytes # (0.20-1.00) 10*3/uL Eosinophils # (0.04-0.35) 10*3/uL APTT (22.0-30.0) sec ABG pH (7.35-7.45) ABG pCO2 (35-45) mmHg ABG pO2 (83-108) mmHg ABG HCO3 (21-25) mmol/L ABG Total CO2 (19-24) mmol/L ABG O2 Saturation (94-97) % VBG pH (7.31-7.41) VBG HCO3 (24-28) mmol/L Hemoglobin (11.4-16.0) gm/dL Sodium 135 L (137-145) mmol/L Potassium (3.5-5.1) mmol/L Chloride 113 H (98-107) mmol/L Carbon Dioxide 14 L (22-30) mmol/L BUN 23 H (7-17) mg/dL Glucose 167 H (74-99) mg/dL POC Glucose (mg/dL) 174 H (70-110) mg/dL Plasma Lactic Acid Abelardo 2.2 H* (0.7-2.0) mmol/L Phosphorus (2.5-4.5) mg/dL Total Bilirubin (0.2-1.3) mg/dL AST 410 H (14-36) U/L ALT 169 H (4-34) U/L Alkaline Phosphatase 250 H (38-126) U/L Troponin I (0.000-0.034) ng/mL Total Protein 5.6 L (6.3-8.2) g/dL Albumin 2.6 L (3.5-5.0) g/dL Procalcitonin (0.02-0.50) ng/mL TSH (0.465-4.680) mIU/L Free T4 (0.78-2.19) ng/dL Urine Glucose (UA) (Negative) Ur Amphetamines Screen (NotDetected) 11/28/24 11/28/24 11/28/24 Range/Units 01:05 01:57 04:34 WBC (4.50-10.00) 10*3/uL RBC (4.10-5.20) 10*6/uL Hgb (12.0-15.0) g/dL Hct (37.2-46.3) % MCH (27.0-32.0) pg MCHC (32.0-37.0) g/dL MPV (9.5-12.2) fL Immature Gran # (0.00-0.04) 10*3/uL Neutrophils # (1.80-7.70) 10*3/uL Neutrophils # (Manual) (1.3-7.7) k/uL Monocytes # (0.20-1.00) 10*3/uL Eosinophils # (0.04-0.35) 10*3/uL APTT (22.0-30.0) sec ABG pH (7.35-7.45) ABG pCO2 (35-45) mmHg ABG pO2 (83-108) mmHg ABG HCO3 (21-25) mmol/L ABG Total CO2 (19-24) mmol/L ABG O2 Saturation (94-97) % VBG pH (7.31-7.41) VBG HCO3 (24-28) mmol/L Hemoglobin (11.4-16.0) gm/dL Sodium (137-145) mmol/L Potassium (3.5-5.1) mmol/L Chloride (98-107) mmol/L Carbon Dioxide (22-30) mmol/L BUN (7-17) mg/dL Glucose (74-99) mg/dL POC Glucose (mg/dL) 172 H 163 H 259 H (70-110) mg/dL Plasma Lactic Acid Abelardo (0.7-2.0) mmol/L Phosphorus (2.5-4.5) mg/dL Total Bilirubin (0.2-1.3) mg/dL AST (14-36) U/L ALT (4-34) U/L Alkaline Phosphatase (38-126) U/L Troponin I (0.000-0.034) ng/mL Total Protein (6.3-8.2) g/dL Albumin (3.5-5.0) g/dL Procalcitonin (0.02-0.50) ng/mL TSH (0.465-4.680) mIU/L Free T4 (0.78-2.19) ng/dL Urine Glucose (UA) (Negative) Ur Amphetamines Screen (NotDetected) 11/28/24 11/28/24 11/28/24 Range/Units 04:35 04:35 05:28 WBC 22.03 H (4.50-10.00) 10*3/uL RBC 3.36 L (4.10-5.20) 10*6/uL Hgb 9.0 L D (12.0-15.0) g/dL Hct 28.4 L (37.2-46.3) % MCH 26.8 L (27.0-32.0) pg MCHC 31.7 L (32.0-37.0) g/dL MPV (9.5-12.2) fL Immature Gran # 0.10 H (0.00-0.04) 10*3/uL Neutrophils # 17.65 H (1.80-7.70) 10*3/uL Neutrophils # (Manual) (1.3-7.7) k/uL Monocytes # 2.76 H (0.20-1.00) 10*3/uL Eosinophils # 0.00 L (0.04-0.35) 10*3/uL APTT (22.0-30.0) sec ABG pH 7.32 L (7.35-7.45) ABG pCO2 32 L (35-45) mmHg ABG pO2 191 H (83-108) mmHg ABG HCO3 17 L (21-25) mmol/L ABG Total CO2 18 L (19-24) mmol/L ABG O2 Saturation >100.0 H (94-97) % VBG pH (7.31-7.41) VBG HCO3 (24-28) mmol/L Hemoglobin 9.3 L (11.4-16.0) gm/dL Sodium 132 L (137-145) mmol/L Potassium (3.5-5.1) mmol/L Chloride 109 H (98-107) mmol/L Carbon Dioxide 14 L (22-30) mmol/L BUN 21 H (7-17) mg/dL Glucose 225 H (74-99) mg/dL POC Glucose (mg/dL) (70-110) mg/dL Plasma Lactic Acid Abelardo (0.7-2.0) mmol/L Phosphorus (2.5-4.5) mg/dL Total Bilirubin (0.2-1.3) mg/dL AST 484 H (14-36) U/L ALT 170 H (4-34) U/L Alkaline Phosphatase 265 H (38-126) U/L Troponin I (0.000-0.034) ng/mL Total Protein 5.4 L (6.3-8.2) g/dL Albumin 2.5 L (3.5-5.0) g/dL Procalcitonin (0.02-0.50) ng/mL TSH (0.465-4.680) mIU/L Free T4 (0.78-2.19) ng/dL Urine Glucose (UA) (Negative) Ur Amphetamines Screen (NotDetected) 11/28/24 11/28/24 11/28/24 Range/Units 06:06 07:06 08:40 WBC (4.50-10.00) 10*3/uL RBC (4.10-5.20) 10*6/uL Hgb (12.0-15.0) g/dL Hct (37.2-46.3) % MCH (27.0-32.0) pg MCHC (32.0-37.0) g/dL MPV (9.5-12.2) fL Immature Gran # (0.00-0.04) 10*3/uL Neutrophils # (1.80-7.70) 10*3/uL Neutrophils # (Manual) (1.3-7.7) k/uL Monocytes # (0.20-1.00) 10*3/uL Eosinophils # (0.04-0.35) 10*3/uL APTT (22.0-30.0) sec ABG pH (7.35-7.45) ABG pCO2 (35-45) mmHg ABG pO2 (83-108) mmHg ABG HCO3 (21-25) mmol/L ABG Total CO2 (19-24) mmol/L ABG O2 Saturation (94-97) % VBG pH (7.31-7.41) VBG HCO3 (24-28) mmol/L Hemoglobin (11.4-16.0) gm/dL Sodium (137-145) mmol/L Potassium (3.5-5.1) mmol/L Chloride (98-107) mmol/L Carbon Dioxide (22-30) mmol/L BUN (7-17) mg/dL Glucose (74-99) mg/dL POC Glucose (mg/dL) 243 H 201 H 195 H (70-110) mg/dL Plasma Lactic Acid Abelardo (0.7-2.0) mmol/L Phosphorus (2.5-4.5) mg/dL Total Bilirubin (0.2-1.3) mg/dL AST (14-36) U/L ALT (4-34) U/L Alkaline Phosphatase (38-126) U/L Troponin I (0.000-0.034) ng/mL Total Protein (6.3-8.2) g/dL Albumin (3.5-5.0) g/dL Procalcitonin (0.02-0.50) ng/mL TSH (0.465-4.680) mIU/L Free T4 (0.78-2.19) ng/dL Urine Glucose (UA) (Negative) Ur Amphetamines Screen (NotDetected) 11/28/24 11/28/24 11/28/24 Range/Units 08:50 08:50 09:18 WBC 19.67 H (4.50-10.00) 10*3/uL RBC 3.30 L (4.10-5.20) 10*6/uL Hgb 9.1 L (12.0-15.0) g/dL Hct 28.0 L (37.2-46.3) % MCH (27.0-32.0) pg MCHC (32.0-37.0) g/dL MPV (9.5-12.2) fL Immature Gran # (0.00-0.04) 10*3/uL Neutrophils # (1.80-7.70) 10*3/uL Neutrophils # (Manual) (1.3-7.7) k/uL Monocytes # (0.20-1.00) 10*3/uL Eosinophils # (0.04-0.35) 10*3/uL APTT (22.0-30.0) sec ABG pH (7.35-7.45) ABG pCO2 (35-45) mmHg ABG pO2 (83-108) mmHg ABG HCO3 (21-25) mmol/L ABG Total CO2 (19-24) mmol/L ABG O2 Saturation (94-97) % VBG pH (7.31-7.41) VBG HCO3 (24-28) mmol/L Hemoglobin (11.4-16.0) gm/dL Sodium 134 L (137-145) mmol/L Potassium (3.5-5.1) mmol/L Chloride 111 H (98-107) mmol/L Carbon Dioxide 17 L (22-30) mmol/L BUN 19 H (7-17) mg/dL Glucose 192 H (74-99) mg/dL POC Glucose (mg/dL) 190 H (70-110) mg/dL Plasma Lactic Acid Abelardo (0.7-2.0) mmol/L Phosphorus (2.5-4.5) mg/dL Total Bilirubin (0.2-1.3) mg/dL AST 463 H (14-36) U/L ALT 168 H (4-34) U/L Alkaline Phosphatase 259 H (38-126) U/L Troponin I (0.000-0.034) ng/mL Total Protein 5.4 L (6.3-8.2) g/dL Albumin 2.5 L (3.5-5.0) g/dL Procalcitonin (0.02-0.50) ng/mL TSH (0.465-4.680) mIU/L Free T4 (0.78-2.19) ng/dL Urine Glucose (UA) (Negative) Ur Amphetamines Screen (NotDetected) 11/28/24 11/28/24 11/28/24 Range/Units 09:56 11:01 12:02 WBC (4.50-10.00) 10*3/uL RBC (4.10-5.20) 10*6/uL Hgb (12.0-15.0) g/dL Hct (37.2-46.3) % MCH (27.0-32.0) pg MCHC (32.0-37.0) g/dL MPV (9.5-12.2) fL Immature Gran # (0.00-0.04) 10*3/uL Neutrophils # (1.80-7.70) 10*3/uL Neutrophils # (Manual) (1.3-7.7) k/uL Monocytes # (0.20-1.00) 10*3/uL Eosinophils # (0.04-0.35) 10*3/uL APTT (22.0-30.0) sec ABG pH (7.35-7.45) ABG pCO2 (35-45) mmHg ABG pO2 (83-108) mmHg ABG HCO3 (21-25) mmol/L ABG Total CO2 (19-24) mmol/L ABG O2 Saturation (94-97) % VBG pH (7.31-7.41) VBG HCO3 (24-28) mmol/L Hemoglobin (11.4-16.0) gm/dL Sodium (137-145) mmol/L Potassium (3.5-5.1) mmol/L Chloride (98-107) mmol/L Carbon Dioxide (22-30) mmol/L BUN (7-17) mg/dL Glucose (74-99) mg/dL POC Glucose (mg/dL) 191 H 184 H 178 H (70-110) mg/dL Plasma Lactic Acid Abelardo (0.7-2.0) mmol/L Phosphorus (2.5-4.5) mg/dL Total Bilirubin (0.2-1.3) mg/dL AST (14-36) U/L ALT (4-34) U/L Alkaline Phosphatase (38-126) U/L Troponin I (0.000-0.034) ng/mL Total Protein (6.3-8.2) g/dL Albumin (3.5-5.0) g/dL Procalcitonin (0.02-0.50) ng/mL TSH (0.465-4.680) mIU/L Free T4 (0.78-2.19) ng/dL Urine Glucose (UA) (Negative) Ur Amphetamines Screen (NotDetected) Assessment and Plan Assessment: Impression: Acute hyperglycemia with hyper osmolar state Acute metabolic encephalopathy secondary to above Acute metabolic acidosis/lactic acidosis secondary to above History of diabetes Sinus tachycardia Severe dehydration History of hyperthyroidism on Tapazole, history of Graves' disease, TSH is low, free T4 is slightly elevated, patient is on Tapazole Paroxysmal atrial fibrillation History of alpha 1 antitrypsin deficiency MZ disease History of gastroparesis Recommendation: Continue to monitor in the ICU Continue ventilatory support, however will check weaning parameters today off sedation if possible. Continue DKA protocol Continue home meds including Tapazole Continue GI DVT prophylaxis Continue insulin infusion as per protocol Continue beta-blockers patient was initially treated with Cardizem on her initial presentation with supraventricular tachycardia/atrial fibrillation Continue anticoagulation Continue antibiotics empirically Patient is critically ill Critical care time is 33 minutes Will continue to follow. Time with Patient: Greater than 30
--- NOTE | 2024-11-28 12:48 | CA ---
Transthoracic Echo Report Name: Cristina Guerra Age: 44 Gender: F : 1980 Exam Date: 11/28/2024 07:48 Exam Location: [facility] Ht (in): 67 Wt (lb): 159 Ordering Physician: Paulo Loyd MD ([id number]) Attending/Referring Phys: Controls Designer Bre Dominguez RDCS Procedure CPT: Indications: a flutter Cardiac Hx: Technical Quality: Good Contrast 1: Total Dose (mL): Contrast 2: Total Dose (mL): MEASUREMENTS (Male / Female) Normal Values 2D ECHO LVOT Diameter 2.2 cm LV Diastolic Volume MOD BP 131.0 cm??? 67 - 155 / 56 - 104 cm??? LV Systolic Volume MOD BP 51.2 cm??? 22 - 58 / 19 - 49 cm??? LV Ejection Fraction MOD BP 61.0 % >= 55 % LV Cardiac Index MOD BP 5249.9 cm???/min???m??? LV Diastolic Volume MOD 4C 112.9 cm??? LV Systolic Volume MOD 4C 49.9 cm??? LV Ejection Fraction MOD 4C 55.8 % LV Cardiac Index MOD 4C 4138.3 cm???/min???m??? LV Diastolic Length 4C 8.2 cm LV Systolic Length 4C 7.1 cm LV Diastolic Volume MOD 2C 140.8 cm??? LV Systolic Volume MOD 2C 52.3 cm??? LV Ejection Fraction MOD 2C 62.8 % LV Cardiac Index MOD 2C 5815.5 cm???/min???m??? LV Diastolic Length 2C 8.9 cm LV Systolic Length 2C 7.1 cm LA Volume 55.1 cm??? 18 - 58 / 22 - 52 cm??? LA Volume Index 29.7 cm???/m??? 16 - 28 cm???/m??? DOPPLER AV Peak Velocity 366.5 cm/s AV Peak Gradient 53.7 mmHg AV Mean Velocity 259.9 cm/s AV Mean Gradient 30.2 mmHg AV Velocity Time Integral 47.0 cm LVOT Peak Velocity 182.9 cm/s LVOT Peak Gradient 13.4 mmHg LVOT Velocity Time Integral 26.3 cm LVOT Stroke Volume 96.0 cm??? LVOT Stroke Volume Index 52.4 ml/m??? LVOT Cardiac Index 6312.4 cm???/min???m??? AV Area Cont Eq vti 2.0 cm??? AV Area Cont Eq pk 1.8 cm??? MV Peak Velocity 150.4 cm/s MV Peak Gradient 9.0 mmHg MV Mean Velocity 103.3 cm/s MV Mean Gradient 5.0 mmHg MV Velocity Time Integral 25.6 cm MV Area PHT 5.2 cm??? Mitral E Point Velocity 109.7 cm/s Mitral A Point Velocity 99.0 cm/s Mitral E to A Ratio 1.1 MV Deceleration Time 144.6 ms TR Peak Velocity 312.9 cm/s TR Peak Gradient 39.2 mmHg Right Atrial Pressure 20.0 mmHg Pulmonary Artery Systolic Pressu 59.2 mmHg Right Ventricular Systolic Press 59.2 mmHg PV Peak Velocity 175.5 cm/s PV Peak Gradient 12.3 mmHg FINDINGS Left Ventricle Left ventricular ejection fraction is estimated at 55-60 %. Severely increased left ventricular diastolic volume. Mildly increased left ventricular systolic volume. Left ventricular wall thickness normal. No obvious regional wall motion abnormalities. Right Ventricle Normal right ventricular size and function. Severe pulmonary hypertension. Right Atrium Normal right atrial size. Left Atrium Mildly increased left atrial volume. Mitral Valve Structurally normal mitral valve. No evidence for mitral valve prolapse. Mild to moderate mitral stenosis. Trace to mild mitral regurgitation. Aortic Valve Aortic valve not well visualized. Moderate aortic stenosis. Mean gradient 26mmHg. Mild aortic regurgitation. Tricuspid Valve Structurally normal tricuspid valve. No tricuspid stenosis. Mild tricuspid regurgitation. Pulmonic Valve Pulmonic valve not well visualized. No pulmonic stenosis. No pulmonic regurgitation. Pericardium No pericardial effusion. Aorta Normal size aortic root and proximal ascending aorta. CONCLUSIONS Normal LV systolic function The aortic valve was not well-seen. There is a mean gradient of 25 mmHg across the aortic valve Mildly thickened mitral valve leaflets. Mild to moderate mitral stenosis by gradient Severe pulmonary hypertension Previewed by: Dr. Ozzie Galarza MD (Electronically Signed) Final Date: 28 November 2024 12:48
[2024-11-28 12:52] LABS: Glucose,Whole Blood 155 mg/dL (70-110)
--- NOTE | 2024-11-28 13:33 | P.PN ---
Subjective Progress Note Date: 11/28/24 I am following-up with patient and she continues to be intubated on ventilator and is on IV Sedation (IV Propofol and Versed). Objective - Vital Signs Vital signs: Vital Signs Temp 99.1 F 11/28/24 08:00 Pulse 107 H 11/28/24 11:00 Resp 21 11/28/24 11:00 BP 146/67 11/28/24 11:00 Pulse Ox 98 11/28/24 11:00 FiO2 30 11/28/24 11:19 Intake & Output 11/27/24 11/28/24 11/28/24 18:59 06:59 18:59 Intake Total 590.874 7573.073 846.075 Output Total 1850 590 Balance 132.952 413.073 256.075 Weight 67.4 kg 72.3 kg Intake: IV 1665 612 0.9 ART LINE PRESSURE BAG 15 12 D5-0.45% NaCl with KCl 1650 600 20Meq/l 1,000 ml @ 150 mls/hr IV .[id number] [facility] Rx# :[id number] Intake, IV Titration 132.952 598.073 234.075 Amount Diltiazem 125 mg In 17.583 52.167 Sodium Chloride 0.9% 100 ml @ 5 MG/HR 5 mls/hr IV .Q24H [facility] Rx#:[id number] Insulin Regular 100 unit 35.795 22.432 In Sodium Chloride 0.9% 100 ml @ 0.1 UNITS/KG/HR 6.807 mls/hr IV .[id number] [facility] Rx#:[id number] Magnesium Sulfate-D5w Pmx 200 1 gm In Dextrose/Water 1 100ml.bag @ 100 mls/hr IVPB Q1H [facility] Rx#: [id number] Midazolam HCl 50 mg In 35.983 10.350 Sodium Chloride 0.9% 40 ml @ 3 MG/HR 3 mls/hr IV .[id number] [facility] Rx#: [id number] Sodium Chloride 0.9% 1, 80 000 ml @ 999 mls/hr IV . Q1H1M [facility] Rx#:[id number] cefTRIAXone 1 gm In 50 50 Sodium Chloride 0.9% 50 ml @ 100 mls/hr IVPB Q12HR [facility] Rx#:[id number] propofoL 1,000 mg In 79.574 237.491 93.725 Empty Bag 1 bag @ 15 MCG/ KG/MIN 6.124 mls/hr IV . [id number] [facility] Rx#:[id number] Output: Urine 1850 590 Other: Voiding Method Indwelling Catheter Indwelling Catheter ABP, PAP, CO, CI - Last Documented Arterial Blood Pressure 119/58 - Exam General: Lying in bed and does not appear in acute distress. Lung: Intubated on a ventilator. Neuro: Very limited since on IV sedation (IV Propofol and Versed) and is intubated. Patient is comatose GCS 3. E1, VT1, M1. I had to manually open the eyes and round, 3mm and reactive to light. No spontaneous movement. Some of the workup during the hospital visit consisted of: POC glucose is more than 600. Potassium 6.7,, dioxide level is less than 5, plasma lactic acid vein is 9.9, TSH is less than 0.015 and the free T4 is 4.5 Phosphorus is 5.5 B12: 664 Serum folate: 8.40 Ammonia 29 Urine Drug send is positive for amphetamine CT of the head is reported as no acute bleed or mass effect. Mild to moderate generalized atrophy. Mild inflammatory change in the left maxillary sinus. Patient reviewed the CT and agree there is no acute or subacute stroke or any mass effect. - Labs CBC & Chem 7: 11/28/24 08:50 11/28/24 08:50 Labs: Abnormal Lab Results - Last 24 Hours (Table) 11/27/24 11/27/24 11/27/24 Range/Units 12:16 12:16 12:16 WBC (4.50-10.00) 10*3/uL RBC (4.10-5.20) 10*6/uL Hgb (12.0-15.0) g/dL Hct (37.2-46.3) % MCH (27.0-32.0) pg MCHC (32.0-37.0) g/dL Immature Gran # (0.00-0.04) 10*3/uL Neutrophils # (1.80-7.70) 10*3/uL Neutrophils # (Manual) 17.46 H (1.3-7.7) k/uL Monocytes # (0.20-1.00) 10*3/uL Eosinophils # (0.04-0.35) 10*3/uL APTT 21.0 L (22.0-30.0) sec ABG pH (7.35-7.45) ABG pCO2 (35-45) mmHg ABG pO2 (83-108) mmHg ABG HCO3 (21-25) mmol/L ABG Total CO2 (19-24) mmol/L ABG O2 Saturation (94-97) % Hemoglobin (11.4-16.0) gm/dL Sodium (137-145) mmol/L Potassium (3.5-5.1) mmol/L Chloride (98-107) mmol/L Carbon Dioxide (22-30) mmol/L BUN (7-17) mg/dL Glucose (74-99) mg/dL POC Glucose (mg/dL) (70-110) mg/dL Plasma Lactic Acid Abelardo (0.7-2.0) mmol/L Phosphorus (2.5-4.5) mg/dL AST (14-36) U/L ALT (4-34) U/L Alkaline Phosphatase (38-126) U/L Troponin I 0.057 H* (0.000-0.034) ng/mL Total Protein (6.3-8.2) g/dL Albumin (3.5-5.0) g/dL Procalcitonin (0.02-0.50) ng/mL Free T4 (0.78-2.19) ng/dL Ur Amphetamines Screen (NotDetected) 11/27/24 11/27/24 11/27/24 Range/Units 12:27 14:46 15:36 WBC (4.50-10.00) 10*3/uL RBC (4.10-5.20) 10*6/uL Hgb (12.0-15.0) g/dL Hct (37.2-46.3) % MCH (27.0-32.0) pg MCHC (32.0-37.0) g/dL Immature Gran # (0.00-0.04) 10*3/uL Neutrophils # (1.80-7.70) 10*3/uL Neutrophils # (Manual) (1.3-7.7) k/uL Monocytes # (0.20-1.00) 10*3/uL Eosinophils # (0.04-0.35) 10*3/uL APTT (22.0-30.0) sec ABG pH (7.35-7.45) ABG pCO2 (35-45) mmHg ABG pO2 (83-108) mmHg ABG HCO3 (21-25) mmol/L ABG Total CO2 (19-24) mmol/L ABG O2 Saturation (94-97) % Hemoglobin (11.4-16.0) gm/dL Sodium (137-145) mmol/L Potassium (3.5-5.1) mmol/L Chloride (98-107) mmol/L Carbon Dioxide (22-30) mmol/L BUN (7-17) mg/dL Glucose (74-99) mg/dL POC Glucose (mg/dL) 341 H 261 H (70-110) mg/dL Plasma Lactic Acid Abelardo (0.7-2.0) mmol/L Phosphorus (2.5-4.5) mg/dL AST (14-36) U/L ALT (4-34) U/L Alkaline Phosphatase (38-126) U/L Troponin I (0.000-0.034) ng/mL Total Protein (6.3-8.2) g/dL Albumin (3.5-5.0) g/dL Procalcitonin (0.02-0.50) ng/mL Free T4 (0.78-2.19) ng/dL Ur Amphetamines Screen Detected H (NotDetected) 11/27/24 11/27/24 11/27/24 Range/Units 16:22 16:22 16:22 WBC (4.50-10.00) 10*3/uL RBC (4.10-5.20) 10*6/uL Hgb (12.0-15.0) g/dL Hct (37.2-46.3) % MCH (27.0-32.0) pg MCHC (32.0-37.0) g/dL Immature Gran # (0.00-0.04) 10*3/uL Neutrophils # (1.80-7.70) 10*3/uL Neutrophils # (Manual) (1.3-7.7) k/uL Monocytes # (0.20-1.00) 10*3/uL Eosinophils # (0.04-0.35) 10*3/uL APTT (22.0-30.0) sec ABG pH (7.35-7.45) ABG pCO2 (35-45) mmHg ABG pO2 (83-108) mmHg ABG HCO3 (21-25) mmol/L ABG Total CO2 (19-24) mmol/L ABG O2 Saturation (94-97) % Hemoglobin (11.4-16.0) gm/dL Sodium (137-145) mmol/L Potassium (3.5-5.1) mmol/L Chloride 111 H (98-107) mmol/L Carbon Dioxide 7 L* (22-30) mmol/L BUN 20 H (7-17) mg/dL Glucose 266 H (74-99) mg/dL POC Glucose (mg/dL) (70-110) mg/dL Plasma Lactic Acid Abelardo (0.7-2.0) mmol/L Phosphorus 5.5 H (2.5-4.5) mg/dL AST (14-36) U/L ALT (4-34) U/L Alkaline Phosphatase (38-126) U/L Troponin I (0.000-0.034) ng/mL Total Protein (6.3-8.2) g/dL Albumin (3.5-5.0) g/dL Procalcitonin (0.02-0.50) ng/mL Free T4 4.53 H (0.78-2.19) ng/dL Ur Amphetamines Screen (NotDetected) 11/27/24 11/27/24 11/27/24 Range/Units 16:22 16:40 17:57 WBC (4.50-10.00) 10*3/uL RBC (4.10-5.20) 10*6/uL Hgb (12.0-15.0) g/dL Hct (37.2-46.3) % MCH (27.0-32.0) pg MCHC (32.0-37.0) g/dL Immature Gran # (0.00-0.04) 10*3/uL Neutrophils # (1.80-7.70) 10*3/uL Neutrophils # (Manual) (1.3-7.7) k/uL Monocytes # (0.20-1.00) 10*3/uL Eosinophils # (0.04-0.35) 10*3/uL APTT (22.0-30.0) sec ABG pH (7.35-7.45) ABG pCO2 (35-45) mmHg ABG pO2 (83-108) mmHg ABG HCO3 (21-25) mmol/L ABG Total CO2 (19-24) mmol/L ABG O2 Saturation (94-97) % Hemoglobin (11.4-16.0) gm/dL Sodium (137-145) mmol/L Potassium (3.5-5.1) mmol/L Chloride (98-107) mmol/L Carbon Dioxide (22-30) mmol/L BUN (7-17) mg/dL Glucose (74-99) mg/dL POC Glucose (mg/dL) 224 H 138 H (70-110) mg/dL Plasma Lactic Acid Abelardo 11.0 H* (0.7-2.0) mmol/L Phosphorus (2.5-4.5) mg/dL AST (14-36) U/L ALT (4-34) U/L Alkaline Phosphatase (38-126) U/L Troponin I (0.000-0.034) ng/mL Total Protein (6.3-8.2) g/dL Albumin (3.5-5.0) g/dL Procalcitonin (0.02-0.50) ng/mL Free T4 (0.78-2.19) ng/dL Ur Amphetamines Screen (NotDetected) 11/27/24 11/27/24 11/27/24 Range/Units 18:41 18:41 19:42 WBC (4.50-10.00) 10*3/uL RBC (4.10-5.20) 10*6/uL Hgb (12.0-15.0) g/dL Hct (37.2-46.3) % MCH (27.0-32.0) pg MCHC (32.0-37.0) g/dL Immature Gran # (0.00-0.04) 10*3/uL Neutrophils # (1.80-7.70) 10*3/uL Neutrophils # (Manual) (1.3-7.7) k/uL Monocytes # (0.20-1.00) 10*3/uL Eosinophils # (0.04-0.35) 10*3/uL APTT (22.0-30.0) sec ABG pH (7.35-7.45) ABG pCO2 (35-45) mmHg ABG pO2 (83-108) mmHg ABG HCO3 (21-25) mmol/L ABG Total CO2 (19-24) mmol/L ABG O2 Saturation (94-97) % Hemoglobin (11.4-16.0) gm/dL Sodium 132 L (137-145) mmol/L Potassium 5.7 H (3.5-5.1) mmol/L Chloride 111 H (98-107) mmol/L Carbon Dioxide 12 L (22-30) mmol/L BUN 20 H (7-17) mg/dL Glucose 452 H (74-99) mg/dL POC Glucose (mg/dL) 124 H (70-110) mg/dL Plasma Lactic Acid Abelardo (0.7-2.0) mmol/L Phosphorus 1.7 L (2.5-4.5) mg/dL AST (14-36) U/L ALT (4-34) U/L Alkaline Phosphatase (38-126) U/L Troponin I (0.000-0.034) ng/mL Total Protein (6.3-8.2) g/dL Albumin (3.5-5.0) g/dL Procalcitonin 19.30 H (0.02-0.50) ng/mL Free T4 (0.78-2.19) ng/dL Ur Amphetamines Screen (NotDetected) 11/27/24 11/27/24 11/27/24 Range/Units 20:15 20:55 21:33 WBC (4.50-10.00) 10*3/uL RBC (4.10-5.20) 10*6/uL Hgb (12.0-15.0) g/dL Hct (37.2-46.3) % MCH (27.0-32.0) pg MCHC (32.0-37.0) g/dL Immature Gran # (0.00-0.04) 10*3/uL Neutrophils # (1.80-7.70) 10*3/uL Neutrophils # (Manual) (1.3-7.7) k/uL Monocytes # (0.20-1.00) 10*3/uL Eosinophils # (0.04-0.35) 10*3/uL APTT (22.0-30.0) sec ABG pH (7.35-7.45) ABG pCO2 (35-45) mmHg ABG pO2 (83-108) mmHg ABG HCO3 (21-25) mmol/L ABG Total CO2 (19-24) mmol/L ABG O2 Saturation (94-97) % Hemoglobin (11.4-16.0) gm/dL Sodium (137-145) mmol/L Potassium (3.5-5.1) mmol/L Chloride (98-107) mmol/L Carbon Dioxide (22-30) mmol/L BUN (7-17) mg/dL Glucose (74-99) mg/dL POC Glucose (mg/dL) 136 H 138 H (70-110) mg/dL Plasma Lactic Acid Abelardo 3.2 H* (0.7-2.0) mmol/L Phosphorus (2.5-4.5) mg/dL AST (14-36) U/L ALT (4-34) U/L Alkaline Phosphatase (38-126) U/L Troponin I (0.000-0.034) ng/mL Total Protein (6.3-8.2) g/dL Albumin (3.5-5.0) g/dL Procalcitonin (0.02-0.50) ng/mL Free T4 (0.78-2.19) ng/dL Ur Amphetamines Screen (NotDetected) 11/27/24 11/27/24 11/27/24 Range/Units 21:56 22:04 23:28 WBC (4.50-10.00) 10*3/uL RBC (4.10-5.20) 10*6/uL Hgb (12.0-15.0) g/dL Hct (37.2-46.3) % MCH (27.0-32.0) pg MCHC (32.0-37.0) g/dL Immature Gran # (0.00-0.04) 10*3/uL Neutrophils # (1.80-7.70) 10*3/uL Neutrophils # (Manual) (1.3-7.7) k/uL Monocytes # (0.20-1.00) 10*3/uL Eosinophils # (0.04-0.35) 10*3/uL APTT (22.0-30.0) sec ABG pH 7.33 L (7.35-7.45) ABG pCO2 29 L (35-45) mmHg ABG pO2 334 H (83-108) mmHg ABG HCO3 15 L (21-25) mmol/L ABG Total CO2 16 L (19-24) mmol/L ABG O2 Saturation >100.0 H (94-97) % Hemoglobin 9.7 L (11.4-16.0) gm/dL Sodium (137-145) mmol/L Potassium (3.5-5.1) mmol/L Chloride (98-107) mmol/L Carbon Dioxide (22-30) mmol/L BUN (7-17) mg/dL Glucose (74-99) mg/dL POC Glucose (mg/dL) 153 H 174 H (70-110) mg/dL Plasma Lactic Acid Abelardo (0.7-2.0) mmol/L Phosphorus (2.5-4.5) mg/dL AST (14-36) U/L ALT (4-34) U/L Alkaline Phosphatase (38-126) U/L Troponin I (0.000-0.034) ng/mL Total Protein (6.3-8.2) g/dL Albumin (3.5-5.0) g/dL Procalcitonin (0.02-0.50) ng/mL Free T4 (0.78-2.19) ng/dL Ur Amphetamines Screen (NotDetected) 11/27/24 11/28/24 11/28/24 Range/Units 23:45 01:00 01:05 WBC (4.50-10.00) 10*3/uL RBC (4.10-5.20) 10*6/uL Hgb (12.0-15.0) g/dL Hct (37.2-46.3) % MCH (27.0-32.0) pg MCHC (32.0-37.0) g/dL Immature Gran # (0.00-0.04) 10*3/uL Neutrophils # (1.80-7.70) 10*3/uL Neutrophils # (Manual) (1.3-7.7) k/uL Monocytes # (0.20-1.00) 10*3/uL Eosinophils # (0.04-0.35) 10*3/uL APTT (22.0-30.0) sec ABG pH (7.35-7.45) ABG pCO2 (35-45) mmHg ABG pO2 (83-108) mmHg ABG HCO3 (21-25) mmol/L ABG Total CO2 (19-24) mmol/L ABG O2 Saturation (94-97) % Hemoglobin (11.4-16.0) gm/dL Sodium 135 L (137-145) mmol/L Potassium (3.5-5.1) mmol/L Chloride 113 H (98-107) mmol/L Carbon Dioxide 14 L (22-30) mmol/L BUN 23 H (7-17) mg/dL Glucose 167 H (74-99) mg/dL POC Glucose (mg/dL) 172 H (70-110) mg/dL Plasma Lactic Acid Abelardo 2.2 H* (0.7-2.0) mmol/L Phosphorus (2.5-4.5) mg/dL AST 410 H (14-36) U/L ALT 169 H (4-34) U/L Alkaline Phosphatase 250 H (38-126) U/L Troponin I (0.000-0.034) ng/mL Total Protein 5.6 L (6.3-8.2) g/dL Albumin 2.6 L (3.5-5.0) g/dL Procalcitonin (0.02-0.50) ng/mL Free T4 (0.78-2.19) ng/dL Ur Amphetamines Screen (NotDetected) 11/28/24 11/28/24 11/28/24 Range/Units 01:57 04:34 04:35 WBC 22.03 H (4.50-10.00) 10*3/uL RBC 3.36 L (4.10-5.20) 10*6/uL Hgb 9.0 L D (12.0-15.0) g/dL Hct 28.4 L (37.2-46.3) % MCH 26.8 L (27.0-32.0) pg MCHC 31.7 L (32.0-37.0) g/dL Immature Gran # 0.10 H (0.00-0.04) 10*3/uL Neutrophils # 17.65 H (1.80-7.70) 10*3/uL Neutrophils # (Manual) (1.3-7.7) k/uL Monocytes # 2.76 H (0.20-1.00) 10*3/uL Eosinophils # 0.00 L (0.04-0.35) 10*3/uL APTT (22.0-30.0) sec ABG pH (7.35-7.45) ABG pCO2 (35-45) mmHg ABG pO2 (83-108) mmHg ABG HCO3 (21-25) mmol/L ABG Total CO2 (19-24) mmol/L ABG O2 Saturation (94-97) % Hemoglobin (11.4-16.0) gm/dL Sodium (137-145) mmol/L Potassium (3.5-5.1) mmol/L Chloride (98-107) mmol/L Carbon Dioxide (22-30) mmol/L BUN (7-17) mg/dL Glucose (74-99) mg/dL POC Glucose (mg/dL) 163 H 259 H (70-110) mg/dL Plasma Lactic Acid Abelardo (0.7-2.0) mmol/L Phosphorus (2.5-4.5) mg/dL AST (14-36) U/L ALT (4-34) U/L Alkaline Phosphatase (38-126) U/L Troponin I (0.000-0.034) ng/mL Total Protein (6.3-8.2) g/dL Albumin (3.5-5.0) g/dL Procalcitonin (0.02-0.50) ng/mL Free T4 (0.78-2.19) ng/dL Ur Amphetamines Screen (NotDetected) 11/28/24 11/28/24 11/28/24 Range/Units 04:35 05:28 06:06 WBC (4.50-10.00) 10*3/uL RBC (4.10-5.20) 10*6/uL Hgb (12.0-15.0) g/dL Hct (37.2-46.3) % MCH (27.0-32.0) pg MCHC (32.0-37.0) g/dL Immature Gran # (0.00-0.04) 10*3/uL Neutrophils # (1.80-7.70) 10*3/uL Neutrophils # (Manual) (1.3-7.7) k/uL Monocytes # (0.20-1.00) 10*3/uL Eosinophils # (0.04-0.35) 10*3/uL APTT (22.0-30.0) sec ABG pH 7.32 L (7.35-7.45) ABG pCO2 32 L (35-45) mmHg ABG pO2 191 H (83-108) mmHg ABG HCO3 17 L (21-25) mmol/L ABG Total CO2 18 L (19-24) mmol/L ABG O2 Saturation >100.0 H (94-97) % Hemoglobin 9.3 L (11.4-16.0) gm/dL Sodium 132 L (137-145) mmol/L Potassium (3.5-5.1) mmol/L Chloride 109 H (98-107) mmol/L Carbon Dioxide 14 L (22-30) mmol/L BUN 21 H (7-17) mg/dL Glucose 225 H (74-99) mg/dL POC Glucose (mg/dL) 243 H (70-110) mg/dL Plasma Lactic Acid Abelardo (0.7-2.0) mmol/L Phosphorus (2.5-4.5) mg/dL AST 484 H (14-36) U/L ALT 170 H (4-34) U/L Alkaline Phosphatase 265 H (38-126) U/L Troponin I (0.000-0.034) ng/mL Total Protein 5.4 L (6.3-8.2) g/dL Albumin 2.5 L (3.5-5.0) g/dL Procalcitonin (0.02-0.50) ng/mL Free T4 (0.78-2.19) ng/dL Ur Amphetamines Screen (NotDetected) 11/28/24 11/28/24 11/28/24 Range/Units 07:06 08:40 08:50 WBC 19.67 H (4.50-10.00) 10*3/uL RBC 3.30 L (4.10-5.20) 10*6/uL Hgb 9.1 L (12.0-15.0) g/dL Hct 28.0 L (37.2-46.3) % MCH (27.0-32.0) pg MCHC (32.0-37.0) g/dL Immature Gran # (0.00-0.04) 10*3/uL Neutrophils # (1.80-7.70) 10*3/uL Neutrophils # (Manual) (1.3-7.7) k/uL Monocytes # (0.20-1.00) 10*3/uL Eosinophils # (0.04-0.35) 10*3/uL APTT (22.0-30.0) sec ABG pH (7.35-7.45) ABG pCO2 (35-45) mmHg ABG pO2 (83-108) mmHg ABG HCO3 (21-25) mmol/L ABG Total CO2 (19-24) mmol/L ABG O2 Saturation (94-97) % Hemoglobin (11.4-16.0) gm/dL Sodium (137-145) mmol/L Potassium (3.5-5.1) mmol/L Chloride (98-107) mmol/L Carbon Dioxide (22-30) mmol/L BUN (7-17) mg/dL Glucose (74-99) mg/dL POC Glucose (mg/dL) 201 H 195 H (70-110) mg/dL Plasma Lactic Acid Abelardo (0.7-2.0) mmol/L Phosphorus (2.5-4.5) mg/dL AST (14-36) U/L ALT (4-34) U/L Alkaline Phosphatase (38-126) U/L Troponin I (0.000-0.034) ng/mL Total Protein (6.3-8.2) g/dL Albumin (3.5-5.0) g/dL Procalcitonin (0.02-0.50) ng/mL Free T4 (0.78-2.19) ng/dL Ur Amphetamines Screen (NotDetected) 11/28/24 11/28/24 11/28/24 Range/Units 08:50 09:18 09:56 WBC (4.50-10.00) 10*3/uL RBC (4.10-5.20) 10*6/uL Hgb (12.0-15.0) g/dL Hct (37.2-46.3) % MCH (27.0-32.0) pg MCHC (32.0-37.0) g/dL Immature Gran # (0.00-0.04) 10*3/uL Neutrophils # (1.80-7.70) 10*3/uL Neutrophils # (Manual) (1.3-7.7) k/uL Monocytes # (0.20-1.00) 10*3/uL Eosinophils # (0.04-0.35) 10*3/uL APTT (22.0-30.0) sec ABG pH (7.35-7.45) ABG pCO2 (35-45) mmHg ABG pO2 (83-108) mmHg ABG HCO3 (21-25) mmol/L ABG Total CO2 (19-24) mmol/L ABG O2 Saturation (94-97) % Hemoglobin (11.4-16.0) gm/dL Sodium 134 L (137-145) mmol/L Potassium (3.5-5.1) mmol/L Chloride 111 H (98-107) mmol/L Carbon Dioxide 17 L (22-30) mmol/L BUN 19 H (7-17) mg/dL Glucose 192 H (74-99) mg/dL POC Glucose (mg/dL) 190 H 191 H (70-110) mg/dL Plasma Lactic Acid Abelardo (0.7-2.0) mmol/L Phosphorus (2.5-4.5) mg/dL AST 463 H (14-36) U/L ALT 168 H (4-34) U/L Alkaline Phosphatase 259 H (38-126) U/L Troponin I (0.000-0.034) ng/mL Total Protein 5.4 L (6.3-8.2) g/dL Albumin 2.5 L (3.5-5.0) g/dL Procalcitonin (0.02-0.50) ng/mL Free T4 (0.78-2.19) ng/dL Ur Amphetamines Screen (NotDetected) 11/28/24 11/28/24 11/28/24 Range/Units 11:01 12:02 12:50 WBC (4.50-10.00) 10*3/uL RBC (4.10-5.20) 10*6/uL Hgb (12.0-15.0) g/dL Hct (37.2-46.3) % MCH (27.0-32.0) pg MCHC (32.0-37.0) g/dL Immature Gran # (0.00-0.04) 10*3/uL Neutrophils # (1.80-7.70) 10*3/uL Neutrophils # (Manual) (1.3-7.7) k/uL Monocytes # (0.20-1.00) 10*3/uL Eosinophils # (0.04-0.35) 10*3/uL APTT (22.0-30.0) sec ABG pH (7.35-7.45) ABG pCO2 (35-45) mmHg ABG pO2 (83-108) mmHg ABG HCO3 (21-25) mmol/L ABG Total CO2 (19-24) mmol/L ABG O2 Saturation (94-97) % Hemoglobin (11.4-16.0) gm/dL Sodium (137-145) mmol/L Potassium (3.5-5.1) mmol/L Chloride (98-107) mmol/L Carbon Dioxide (22-30) mmol/L BUN (7-17) mg/dL Glucose (74-99) mg/dL POC Glucose (mg/dL) 184 H 178 H 155 H (70-110) mg/dL Plasma Lactic Acid Abelardo (0.7-2.0) mmol/L Phosphorus (2.5-4.5) mg/dL AST (14-36) U/L ALT (4-34) U/L Alkaline Phosphatase (38-126) U/L Troponin I (0.000-0.034) ng/mL Total Protein (6.3-8.2) g/dL Albumin (3.5-5.0) g/dL Procalcitonin (0.02-0.50) ng/mL Free T4 (0.78-2.19) ng/dL Ur Amphetamines Screen (NotDetected) Assessment and Plan Assessment: Patient is a 44-year-old woman with history of type 1 diabetes on insulin pump who presents the emergency department because of altered mental status and was unresponsive. Her sugar level was more than 600 and has abnormal electrolyte imbalance. CT of the head is unremarkable. Altered Mental status due to multifactorial metabolic encephalopathy with electrolyte imbalance as well as abnormal thyroid. Currently patient is sedated (IV Propofol and Versed). CT head is negative for acute process. Acute hyperglycemic with hyperosmotic state Low normal folate History of diabetes mellitus Sinus tachycardia History of hypothyroidism as well as Graves' disease History of alpha 1 antitrypsin deficiency MZ disease paroxysmal atrial fibrillation History of gastroparesis Plan: For low normal folic acid, I started the patient on folic acid 1mg daily. Routine EEG and pending report. Recommend better control of her sugar Recommend control of electrolyte Recommend control of her thyroid. Will defer the rest of the medical management to primary and other specialist Plan is discussed with the ICU attending. Time with Patient: Less than 30
[2024-11-28 13:34] LABS: ALT 204 U/L (4-34); AST 493 U/L (14-36); African American GFR (CKD) >90 (>60 ml/min/1.73 sqM); Albumin 2.6 g/dL (3.5-5.0); Alkaline Phosphatase 238 U/L (38-126); Anion Gap 6 mmol/L; Blood Urea Nitrogen 19 mg/dL (7-17); Calcium 8.5 mg/dL (8.4-10.2); Carbon Dioxide 15 mmol/L (22-30); Chloride 111 mmol/L (98-107); Glucose 162 mg/dL (74-99); Non-African American GFR(CKD) >90 (>60 ml/min/1.73 sqM); Potassium 4.8 mmol/L (3.5-5.1); Sodium 132 mmol/L (137-145); Total Bilirubin 0.9 mg/dL (0.2-1.3); Total Protein 5.7 g/dL (6.3-8.2)
[2024-11-28 13:57] LABS: Glucose,Whole Blood 137 mg/dL (70-110)
[2024-11-28] MEDS: FOLIC ACID 1 MG TAB PO SCH (14:36)
[2024-11-28 15:31] LABS: Chol/HDL Ratio 2.76 Ratio; LDL Cholesterol,Calculated 11.9 mg/dL (0.0-131.0)
[2024-11-28 16:15] LABS: Glucose,Whole Blood 189 mg/dL (70-110)
[2024-11-28 17:10] LABS: Glucose,Whole Blood 253 mg/dL (70-110)
[2024-11-28 18:25] LABS: Glucose,Whole Blood 278 mg/dL (70-110)
[2024-11-28] MEDS: INSULIN LISPRO (HumaLOG) 100 UNIT/ML 10 mL VL SQ SCH (18:31)
--- NOTE | 2024-11-28 21:23 | EEG ---
ELECTROENCEPHALOGRAM REPORT CLINICAL HISTORY: This is a 44-year-old woman with altered mental status. The video EEG is obtained to evaluate for seizure epileptiform activity. RELEVANT MEDICATIONS: 1. IV propofol. 2. IV midazolam. EEG TYPE: This is a routine 21-channel EEG with video using the 10/20 electrode placement system. DESCRIPTION: The patient is intubated on a ventilator. The background consists of [id number] voltage of 10 hertz activity intermixed with delta activity. There is no physiological stage 2 sleep architecture. There is no focal slowing. There is rare diffuse suppression lasting 1 to 2 seconds. Interictal and ictal is none. ACTIVATION PROCEDURE: Photic stimulation did not evoke a posterior driving response. There is no abnormality during the photic stimulation. Hyperventilation is not performed. CLINICAL INTERPRETATION: This is an abnormal routine EEG. The background slowing is suggestive of mild to moderate encephalopathy. The diffuse suppression activity is likely due to medication effect (IV midazolam and propofol). Otherwise, there is no focal slowing, epileptiform discharges, or seizure on the EEG. Clinical correlation is recommended. LOURDES / [facility]: [id number] / [place]
[2024-11-28] MEDS: D5-0.45% NACL WITH KCL 20MEQ/L 1,000 ML IV SCH (21:48)
[2024-11-28] MEDS: PIPERACILLIN-TAZOBACTAM 3.375 GM in SODIUM CHLORIDE 0.9% 100 ML IVPB SCH (21:48)
--- NOTE | 2024-11-28 22:46 | P.CONS ---
History of Present Illness - Reason for Consult Consult date: 11/28/24 Pneumonia Requesting physician: Rolando Jacobsen - Chief Complaint Decreased level of responsiveness x 1 day - History of Present Illness Patient is a 44-year-old female with a past medical history significant for atrial fibrillation hypothyroidism insulin-dependent diabetes mellitus on insulin pump patient has been brought into the hospital for evaluation of mental status changes on arrival with EMS patient was minimally responsive noticed to be in SVT at the patient was subsequently brought to the hospital on arrival to the ER patient was initially mildly hypothermic temperature of 94.6 subsequently he did spike a fever 100 F at midnight patient went up getting intubated in the ER and has been transferred to the ICU patient is currently on 30% FiO2 she did have a white count of 19.84 with a left shift creatinine 0.64 lactic acid of 3.3 troponin mildly elevated urine has been negative urine drug screen positive for amphetamines patient did have a chest x- ray new left lower lung opacity concerning for pneumonia did have a CT of the chest left lower lobe patient with elevated total atelectasis patient did have procalcitonin of 19.30 is being treated with the ceftriaxone infectious disease was consulted for pneumonia most information has been extended from review the chart talking with the mother at the bedside as apparently patient seem to be doing okay at the time before going to bed in the next morning the patient was less responsive and did not response to the call of the son who subsequently called EMS and the patient was noted to have significant elevation of the blood sugar Review of Systems Positive points has been mentioned in HPI complete review could not be obtained because of his underlying mental status Past Medical History Past Medical History: Atrial Fibrillation, Diabetes Mellitus, Thyroid Disorder Additional Past Medical History / Comment(s): thyroid disorder History of Any Multi-Drug Resistant Organisms: None Reported Past Surgical History: No Surgical Hx Reported Past Anesthesia/Blood Transfusion Reactions: No Reported Reaction Past Psychological History: No Psychological Hx Reported Smoking Status: Never smoker Past Alcohol Use History: None Reported Past Drug Use History: None Reported - Past Family History Mother Family Medical History: Hypertension Father Family Medical History: Diabetes Mellitus Medications and Allergies Home Medications Medication Instructions Recorded Confirmed Type Dextroamphetamine/Amphetamine 20 mg PO BID@0900,1400 06/25/24 11/27/24 History [Adderall] Rivaroxaban [Xarelto] 10 mg PO DAILY 06/25/24 11/27/24 History atenoloL [Tenormin] 50 mg PO BID 06/25/24 11/27/24 History methIMAzole [Tapazole] 10 mg PO BID 06/25/24 11/27/24 History Albuterol Sulfate/Budesonide 1 puff INHALATION DIRECTED 11/27/24 11/27/24 History [Airsupra 90-80 Mcg Inhaler] Insulin Aspart (For Pump) [NovoLOG 0.01 unit SQ-PUMP CONTINUOUS 11/27/24 11/27/24 History (For Pump)] Insulin Aspart (Niacinamide) 5 units SQ AC-TID 11/27/24 11/27/24 History [Fiasp 100 Unit/ml Flextouch Pen] Losartan-Hctz 50-12.5 mg [Hyzaar 1 tab PO DAILY 11/27/24 11/27/24 History 50-12.5] Omeprazole [PriLOSEC] 40 mg PO BID 11/27/24 11/27/24 History Allergies Allergy/AdvReac Type Severity Reaction Status Date / Time meperidine [From Demerol] Allergy syncope Verified 11/27/24 13:35 moxifloxacin [From Avelox] Allergy palpitation Verified 11/27/24 13:35 s Physical Exam Vitals: Vital Signs Temp Pulse Resp BP Pulse Ox FiO2 11/28/24 11:19 30 11/28/24 11:00 107 H 21 146/67 98 11/28/24 10:00 129 H 21 142/65 98 11/28/24 09:00 125 H 22 132/63 98 11/28/24 08:42 121 H 20 11/28/24 08:24 123 H 20 11/28/24 08:15 30 11/28/24 08:00 99.1 F 123 H 20 126/57 98 35 11/28/24 07:00 124 H 22 146/64 98 11/28/24 06:00 123 H 21 137/63 98 11/28/24 05:33 30 11/28/24 05:00 118 H 22 134/68 99 11/28/24 04:15 40 11/28/24 04:00 99.6 F 117 H 16 126/58 99 40 11/28/24 03:00 121 H 16 99 11/28/24 02:00 126 H 16 137/63 98 11/28/24 01:00 124 H 21 126/59 99 11/28/24 00:24 40 11/28/24 00:00 100.0 F H 128 H 16 111/56 99 40 11/27/24 23:00 89 19 115/88 99 11/27/24 22:10 40 11/27/24 22:05 98 32 H 115/88 99 11/27/24 22:00 93 16 110/62 99 11/27/24 21:00 99.0 F 98 16 110/53 99 60 11/27/24 20:15 16 60 11/27/24 19:51 60 11/27/24 19:45 106 H 18 116/71 100 11/27/24 19:30 108 H 18 88/41 100 11/27/24 19:00 120 H 18 109/49 99 11/27/24 18:18 99.5 F 112 H 18 102/56 100 11/27/24 17:30 128 H 20 123/61 100 11/27/24 17:00 125 H 20 120/62 100 11/27/24 16:30 116 H 18 132/74 100 11/27/24 16:00 106 H 20 140/94 100 60 11/27/24 15:52 98.2 F 11/27/24 15:16 96.9 F L 112 H 17 150/86 100 11/27/24 14:02 94.6 F L 134 H 16 162/92 100 11/27/24 13:30 200 H 16 137/74 100 11/27/24 13:00 200 H 16 157/88 100 Intake and Output 11/27/24 11/28/24 11/28/24 22:59 06:59 14:59 Intake Total 729.575 6161.808 846.075 Output Total 525 1325 590 Balance 0.217 545.808 256.075 Intake: IV 300 1365 612 0.9 ART LINE PRESSURE BAG 15 12 D5-0.45% NaCl with KCl 300 1350 600 20Meq/l 1,000 ml @ 150 mls/hr IV .[id number] [facility] Rx# :[id number] Intake, IV Titration 225.217 505.808 234.075 Amount Diltiazem 125 mg In 17.583 52.167 Sodium Chloride 0.9% 100 ml @ 5 MG/HR 5 mls/hr IV .Q24H [facility] Rx#:[id number] Insulin Regular 100 unit 35.795 22.432 In Sodium Chloride 0.9% 100 ml @ 0.1 UNITS/KG/HR 6.807 mls/hr IV .[id number] [facility] Rx#:[id number] Magnesium Sulfate-D5w Pmx 200 1 gm In Dextrose/Water 1 100ml.bag @ 100 mls/hr IVPB Q1H [facility] Rx#: [id number] Midazolam HCl 50 mg In 2.25 33.733 10.350 Sodium Chloride 0.9% 40 ml @ 3 MG/HR 3 mls/hr IV .[id number] [facility] Rx#: [id number] Sodium Chloride 0.9% 1, 80 000 ml @ 999 mls/hr IV . Q1H1M [facility] Rx#:[id number] cefTRIAXone 1 gm In 50 50 Sodium Chloride 0.9% 50 ml @ 100 mls/hr IVPB Q12HR [facility] Rx#:[id number] propofoL 1,000 mg In 169.589 147.476 93.725 Empty Bag 1 bag @ 15 MCG/ KG/MIN 6.124 mls/hr IV . [id number] [facility] Rx#:[id number] Output: Urine 525 1325 590 Other: Voiding Method Indwelling Catheter Indwelling Catheter Indwelling Catheter Weight 72.3 kg ABP, PAP, CO, CI - Last 8 Hours Arterial Blood Pressure 119/58 Arterial Blood Pressure 127/53 Arterial Blood Pressure 127/50 Arterial Blood Pressure 116/46 Arterial Blood Pressure 110/42 Arterial Blood Pressure 118/45 Arterial Blood Pressure 118/44 GENERAL DESCRIPTION: Middle-age female intubated on the vent HEENT: Shows Pallor , no scleral icterus. Oral mucous membrane is dry. NECK: Trachea central, no thyromegaly. LUNGS: Unlabored breathing. Decreased breath sounds at the base HEART: S1, S2, regular rate and rhythm. No loud murmur ABDOMEN: Soft, no tenderness , guarding or rigidity, no organomegaly EXTREMITIES: No edema of feet. SKIN: No rash, no masses palpable. NEUROLOGICAL: The patient is sedated on the vent Results CBC & Chem 7: 11/28/24 08:50 11/28/24 13:11 Labs: Abnormal Lab Results - Last 24 Hours (Table) 0411/27/24 11/27/24 Range/Units 12:16 12:16 12:16 WBC (4.50-10.00) 10*3/uL RBC (4.10-5.20) 10*6/uL Hgb (12.0-15.0) g/dL Hct (37.2-46.3) % MCH (27.0-32.0) pg MCHC (32.0-37.0) g/dL Immature Gran # (0.00-0.04) 10*3/uL Neutrophils # (1.80-7.70) 10*3/uL Neutrophils # (Manual) 17.46 H (1.3-7.7) k/uL Monocytes # (0.20-1.00) 10*3/uL Eosinophils # (0.04-0.35) 10*3/uL APTT 21.0 L (22.0-30.0) sec ABG pH (7.35-7.45) ABG pCO2 (35-45) mmHg ABG pO2 (83-108) mmHg ABG HCO3 (21-25) mmol/L ABG Total CO2 (19-24) mmol/L ABG O2 Saturation (94-97) % VBG pH (7.31-7.41) VBG HCO3 (24-28) mmol/L Hemoglobin (11.4-16.0) gm/dL Sodium 134 L (137-145) mmol/L Potassium 6.7 H* (3.5-5.1) mmol/L Chloride (98-107) mmol/L Carbon Dioxide <5 L* (22-30) mmol/L BUN 19 H (7-17) mg/dL Glucose 640 H* (74-99) mg/dL POC Glucose (mg/dL) (70-110) mg/dL Plasma Lactic Acid Abelardo (0.7-2.0) mmol/L Phosphorus (2.5-4.5) mg/dL Total Bilirubin 1.7 H (0.2-1.3) mg/dL AST 54 H (14-36) U/L ALT (4-34) U/L Alkaline Phosphatase 349 H (38-126) U/L Troponin I (0.000-0.034) ng/mL Total Protein (6.3-8.2) g/dL Albumin (3.5-5.0) g/dL Procalcitonin (0.02-0.50) ng/mL TSH <0.015 L (0.465-4.680) mIU/L Free T4 (0.78-2.19) ng/dL Ur Amphetamines Screen (NotDetected) 11/27/24 11/27/24 11/27/24 Range/Units 12:16 12:16 12:27 WBC (4.50-10.00) 10*3/uL RBC (4.10-5.20) 10*6/uL Hgb (12.0-15.0) g/dL Hct (37.2-46.3) % MCH (27.0-32.0) pg MCHC (32.0-37.0) g/dL Immature Gran # (0.00-0.04) 10*3/uL Neutrophils # (1.80-7.70) 10*3/uL Neutrophils # (Manual) (1.3-7.7) k/uL Monocytes # (0.20-1.00) 10*3/uL Eosinophils # (0.04-0.35) 10*3/uL APTT (22.0-30.0) sec ABG pH (7.35-7.45) ABG pCO2 (35-45) mmHg ABG pO2 (83-108) mmHg ABG HCO3 (21-25) mmol/L ABG Total CO2 (19-24) mmol/L ABG O2 Saturation (94-97) % VBG pH (7.31-7.41) VBG HCO3 (24-28) mmol/L Hemoglobin (11.4-16.0) gm/dL Sodium (137-145) mmol/L Potassium (3.5-5.1) mmol/L Chloride (98-107) mmol/L Carbon Dioxide (22-30) mmol/L BUN (7-17) mg/dL Glucose (74-99) mg/dL POC Glucose (mg/dL) (70-110) mg/dL Plasma Lactic Acid Abelardo 19.9 H* (0.7-2.0) mmol/L Phosphorus (2.5-4.5) mg/dL Total Bilirubin (0.2-1.3) mg/dL AST (14-36) U/L ALT (4-34) U/L Alkaline Phosphatase (38-126) U/L Troponin I 0.057 H* (0.000-0.034) ng/mL Total Protein (6.3-8.2) g/dL Albumin (3.5-5.0) g/dL Procalcitonin (0.02-0.50) ng/mL TSH (0.465-4.680) mIU/L Free T4 (0.78-2.19) ng/dL Ur Amphetamines Screen Detected H (NotDetected) 11/27/24 11/27/24 11/27/24 Range/Units 12:34 14:46 15:36 WBC (4.50-10.00) 10*3/uL RBC (4.10-5.20) 10*6/uL Hgb (12.0-15.0) g/dL Hct (37.2-46.3) % MCH (27.0-32.0) pg MCHC (32.0-37.0) g/dL Immature Gran # (0.00-0.04) 10*3/uL Neutrophils # (1.80-7.70) 10*3/uL Neutrophils # (Manual) (1.3-7.7) k/uL Monocytes # (0.20-1.00) 10*3/uL Eosinophils # (0.04-0.35) 10*3/uL APTT (22.0-30.0) sec ABG pH (7.35-7.45) ABG pCO2 (35-45) mmHg ABG pO2 (83-108) mmHg ABG HCO3 (21-25) mmol/L ABG Total CO2 (19-24) mmol/L ABG O2 Saturation (94-97) % VBG pH 6.92 L* (7.31-7.41) VBG HCO3 8 L* (24-28) mmol/L Hemoglobin (11.4-16.0) gm/dL Sodium (137-145) mmol/L Potassium (3.5-5.1) mmol/L Chloride (98-107) mmol/L Carbon Dioxide (22-30) mmol/L BUN (7-17) mg/dL Glucose (74-99) mg/dL POC Glucose (mg/dL) 341 H 261 H (70-110) mg/dL Plasma Lactic Acid Abelardo (0.7-2.0) mmol/L Phosphorus (2.5-4.5) mg/dL Total Bilirubin (0.2-1.3) mg/dL AST (14-36) U/L ALT (4-34) U/L Alkaline Phosphatase (38-126) U/L Troponin I (0.000-0.034) ng/mL Total Protein (6.3-8.2) g/dL Albumin (3.5-5.0) g/dL Procalcitonin (0.02-0.50) ng/mL TSH (0.465-4.680) mIU/L Free T4 (0.78-2.19) ng/dL Ur Amphetamines Screen (NotDetected) 11/27/24 11/27/24 11/27/24 Range/Units 16:22 16:22 16:22 WBC (4.50-10.00) 10*3/uL RBC (4.10-5.20) 10*6/uL Hgb (12.0-15.0) g/dL Hct (37.2-46.3) % MCH (27.0-32.0) pg MCHC (32.0-37.0) g/dL Immature Gran # (0.00-0.04) 10*3/uL Neutrophils # (1.80-7.70) 10*3/uL Neutrophils # (Manual) (1.3-7.7) k/uL Monocytes # (0.20-1.00) 10*3/uL Eosinophils # (0.04-0.35) 10*3/uL APTT (22.0-30.0) sec ABG pH (7.35-7.45) ABG pCO2 (35-45) mmHg ABG pO2 (83-108) mmHg ABG HCO3 (21-25) mmol/L ABG Total CO2 (19-24) mmol/L ABG O2 Saturation (94-97) % VBG pH (7.31-7.41) VBG HCO3 (24-28) mmol/L Hemoglobin (11.4-16.0) gm/dL Sodium (137-145) mmol/L Potassium (3.5-5.1) mmol/L Chloride 111 H (98-107) mmol/L Carbon Dioxide 7 L* (22-30) mmol/L BUN 20 H (7-17) mg/dL Glucose 266 H (74-99) mg/dL POC Glucose (mg/dL) (70-110) mg/dL Plasma Lactic Acid Abelardo (0.7-2.0) mmol/L Phosphorus 5.5 H (2.5-4.5) mg/dL Total Bilirubin (0.2-1.3) mg/dL AST (14-36) U/L ALT (4-34) U/L Alkaline Phosphatase (38-126) U/L Troponin I (0.000-0.034) ng/mL Total Protein (6.3-8.2) g/dL Albumin (3.5-5.0) g/dL Procalcitonin (0.02-0.50) ng/mL TSH (0.465-4.680) mIU/L Free T4 4.53 H (0.78-2.19) ng/dL Ur Amphetamines Screen (NotDetected) 11/27/24 11/27/24 11/27/24 Range/Units 16:22 16:40 17:57 WBC (4.50-10.00) 10*3/uL RBC (4.10-5.20) 10*6/uL Hgb (12.0-15.0) g/dL Hct (37.2-46.3) % MCH (27.0-32.0) pg MCHC (32.0-37.0) g/dL Immature Gran # (0.00-0.04) 10*3/uL Neutrophils # (1.80-7.70) 10*3/uL Neutrophils # (Manual) (1.3-7.7) k/uL Monocytes # (0.20-1.00) 10*3/uL Eosinophils # (0.04-0.35) 10*3/uL APTT (22.0-30.0) sec ABG pH (7.35-7.45) ABG pCO2 (35-45) mmHg ABG pO2 (83-108) mmHg ABG HCO3 (21-25) mmol/L ABG Total CO2 (19-24) mmol/L ABG O2 Saturation (94-97) % VBG pH (7.31-7.41) VBG HCO3 (24-28) mmol/L Hemoglobin (11.4-16.0) gm/dL Sodium (137-145) mmol/L Potassium (3.5-5.1) mmol/L Chloride (98-107) mmol/L Carbon Dioxide (22-30) mmol/L BUN (7-17) mg/dL Glucose (74-99) mg/dL POC Glucose (mg/dL) 224 H 138 H (70-110) mg/dL Plasma Lactic Acid Abelardo 11.0 H* (0.7-2.0) mmol/L Phosphorus (2.5-4.5) mg/dL Total Bilirubin (0.2-1.3) mg/dL AST (14-36) U/L ALT (4-34) U/L Alkaline Phosphatase (38-126) U/L Troponin I (0.000-0.034) ng/mL Total Protein (6.3-8.2) g/dL Albumin (3.5-5.0) g/dL Procalcitonin (0.02-0.50) ng/mL TSH (0.465-4.680) mIU/L Free T4 (0.78-2.19) ng/dL Ur Amphetamines Screen (NotDetected) 11/27/24 11/27/24 11/27/24 Range/Units 18:41 18:41 19:42 WBC (4.50-10.00) 10*3/uL RBC (4.10-5.20) 10*6/uL Hgb (12.0-15.0) g/dL Hct (37.2-46.3) % MCH (27.0-32.0) pg MCHC (32.0-37.0) g/dL Immature Gran # (0.00-0.04) 10*3/uL Neutrophils # (1.80-7.70) 10*3/uL Neutrophils # (Manual) (1.3-7.7) k/uL Monocytes # (0.20-1.00) 10*3/uL Eosinophils # (0.04-0.35) 10*3/uL APTT (22.0-30.0) sec ABG pH (7.35-7.45) ABG pCO2 (35-45) mmHg ABG pO2 (83-108) mmHg ABG HCO3 (21-25) mmol/L ABG Total CO2 (19-24) mmol/L ABG O2 Saturation (94-97) % VBG pH (7.31-7.41) VBG HCO3 (24-28) mmol/L Hemoglobin (11.4-16.0) gm/dL Sodium 132 L (137-145) mmol/L Potassium 5.7 H (3.5-5.1) mmol/L Chloride 111 H (98-107) mmol/L Carbon Dioxide 12 L (22-30) mmol/L BUN 20 H (7-17) mg/dL Glucose 452 H (74-99) mg/dL POC Glucose (mg/dL) 124 H (70-110) mg/dL Plasma Lactic Acid Abelardo (0.7-2.0) mmol/L Phosphorus 1.7 L (2.5-4.5) mg/dL Total Bilirubin (0.2-1.3) mg/dL AST (14-36) U/L ALT (4-34) U/L Alkaline Phosphatase (38-126) U/L Troponin I (0.000-0.034) ng/mL Total Protein (6.3-8.2) g/dL Albumin (3.5-5.0) g/dL Procalcitonin 19.30 H (0.02-0.50) ng/mL TSH (0.465-4.680) mIU/L Free T4 (0.78-2.19) ng/dL Ur Amphetamines Screen (NotDetected) 11/27/24 11/27/24 11/27/24 Range/Units 20:15 20:55 21:33 WBC (4.50-10.00) 10*3/uL RBC (4.10-5.20) 10*6/uL Hgb (12.0-15.0) g/dL Hct (37.2-46.3) % MCH (27.0-32.0) pg MCHC (32.0-37.0) g/dL Immature Gran # (0.00-0.04) 10*3/uL Neutrophils # (1.80-7.70) 10*3/uL Neutrophils # (Manual) (1.3-7.7) k/uL Monocytes # (0.20-1.00) 10*3/uL Eosinophils # (0.04-0.35) 10*3/uL APTT (22.0-30.0) sec ABG pH (7.35-7.45) ABG pCO2 (35-45) mmHg ABG pO2 (83-108) mmHg ABG HCO3 (21-25) mmol/L ABG Total CO2 (19-24) mmol/L ABG O2 Saturation (94-97) % VBG pH (7.31-7.41) VBG HCO3 (24-28) mmol/L Hemoglobin (11.4-16.0) gm/dL Sodium (137-145) mmol/L Potassium (3.5-5.1) mmol/L Chloride (98-107) mmol/L Carbon Dioxide (22-30) mmol/L BUN (7-17) mg/dL Glucose (74-99) mg/dL POC Glucose (mg/dL) 136 H 138 H (70-110) mg/dL Plasma Lactic Acid Abelardo 3.2 H* (0.7-2.0) mmol/L Phosphorus (2.5-4.5) mg/dL Total Bilirubin (0.2-1.3) mg/dL AST (14-36) U/L ALT (4-34) U/L Alkaline Phosphatase (38-126) U/L Troponin I (0.000-0.034) ng/mL Total Protein (6.3-8.2) g/dL Albumin (3.5-5.0) g/dL Procalcitonin (0.02-0.50) ng/mL TSH (0.465-4.680) mIU/L Free T4 (0.78-2.19) ng/dL Ur Amphetamines Screen (NotDetected) 11/27/24 11/27/24 11/27/24 Range/Units 21:56 22:04 23:28 WBC (4.50-10.00) 10*3/uL RBC (4.10-5.20) 10*6/uL Hgb (12.0-15.0) g/dL Hct (37.2-46.3) % MCH (27.0-32.0) pg MCHC (32.0-37.0) g/dL Immature Gran # (0.00-0.04) 10*3/uL Neutrophils # (1.80-7.70) 10*3/uL Neutrophils # (Manual) (1.3-7.7) k/uL Monocytes # (0.20-1.00) 10*3/uL Eosinophils # (0.04-0.35) 10*3/uL APTT (22.0-30.0) sec ABG pH 7.33 L (7.35-7.45) ABG pCO2 29 L (35-45) mmHg ABG pO2 334 H (83-108) mmHg ABG HCO3 15 L (21-25) mmol/L ABG Total CO2 16 L (19-24) mmol/L ABG O2 Saturation >100.0 H (94-97) % VBG pH (7.31-7.41) VBG HCO3 (24-28) mmol/L Hemoglobin 9.7 L (11.4-16.0) gm/dL Sodium (137-145) mmol/L Potassium (3.5-5.1) mmol/L Chloride (98-107) mmol/L Carbon Dioxide (22-30) mmol/L BUN (7-17) mg/dL Glucose (74-99) mg/dL POC Glucose (mg/dL) 153 H 174 H (70-110) mg/dL Plasma Lactic Acid Abelardo (0.7-2.0) mmol/L Phosphorus (2.5-4.5) mg/dL Total Bilirubin (0.2-1.3) mg/dL AST (14-36) U/L ALT (4-34) U/L Alkaline Phosphatase (38-126) U/L Troponin I (0.000-0.034) ng/mL Total Protein (6.3-8.2) g/dL Albumin (3.5-5.0) g/dL Procalcitonin (0.02-0.50) ng/mL TSH (0.465-4.680) mIU/L Free T4 (0.78-2.19) ng/dL Ur Amphetamines Screen (NotDetected) 11/27/24 11/28/24 11/28/24 Range/Units 23:45 01:00 01:05 WBC (4.50-10.00) 10*3/uL RBC (4.10-5.20) 10*6/uL Hgb (12.0-15.0) g/dL Hct (37.2-46.3) % MCH (27.0-32.0) pg MCHC (32.0-37.0) g/dL Immature Gran # (0.00-0.04) 10*3/uL Neutrophils # (1.80-7.70) 10*3/uL Neutrophils # (Manual) (1.3-7.7) k/uL Monocytes # (0.20-1.00) 10*3/uL Eosinophils # (0.04-0.35) 10*3/uL APTT (22.0-30.0) sec ABG pH (7.35-7.45) ABG pCO2 (35-45) mmHg ABG pO2 (83-108) mmHg ABG HCO3 (21-25) mmol/L ABG Total CO2 (19-24) mmol/L ABG O2 Saturation (94-97) % VBG pH (7.31-7.41) VBG HCO3 (24-28) mmol/L Hemoglobin (11.4-16.0) gm/dL Sodium 135 L (137-145) mmol/L Potassium (3.5-5.1) mmol/L Chloride 113 H (98-107) mmol/L Carbon Dioxide 14 L (22-30) mmol/L BUN 23 H (7-17) mg/dL Glucose 167 H (74-99) mg/dL POC Glucose (mg/dL) 172 H (70-110) mg/dL Plasma Lactic Acid Abelardo 2.2 H* (0.7-2.0) mmol/L Phosphorus (2.5-4.5) mg/dL Total Bilirubin (0.2-1.3) mg/dL AST 410 H (14-36) U/L ALT 169 H (4-34) U/L Alkaline Phosphatase 250 H (38-126) U/L Troponin I (0.000-0.034) ng/mL Total Protein 5.6 L (6.3-8.2) g/dL Albumin 2.6 L (3.5-5.0) g/dL Procalcitonin (0.02-0.50) ng/mL TSH (0.465-4.680) mIU/L Free T4 (0.78-2.19) ng/dL Ur Amphetamines Screen (NotDetected) 11/28/24 11/28/24 11/28/24 Range/Units 01:57 04:34 04:35 WBC 22.03 H (4.50-10.00) 10*3/uL RBC 3.36 L (4.10-5.20) 10*6/uL Hgb 9.0 L D (12.0-15.0) g/dL Hct 28.4 L (37.2-46.3) % MCH 26.8 L (27.0-32.0) pg MCHC 31.7 L (32.0-37.0) g/dL Immature Gran # 0.10 H (0.00-0.04) 10*3/uL Neutrophils # 17.65 H (1.80-7.70) 10*3/uL Neutrophils # (Manual) (1.3-7.7) k/uL Monocytes # 2.76 H (0.20-1.00) 10*3/uL Eosinophils # 0.00 L (0.04-0.35) 10*3/uL APTT (22.0-30.0) sec ABG pH (7.35-7.45) ABG pCO2 (35-45) mmHg ABG pO2 (83-108) mmHg ABG HCO3 (21-25) mmol/L ABG Total CO2 (19-24) mmol/L ABG O2 Saturation (94-97) % VBG pH (7.31-7.41) VBG HCO3 (24-28) mmol/L Hemoglobin (11.4-16.0) gm/dL Sodium (137-145) mmol/L Potassium (3.5-5.1) mmol/L Chloride (98-107) mmol/L Carbon Dioxide (22-30) mmol/L BUN (7-17) mg/dL Glucose (74-99) mg/dL POC Glucose (mg/dL) 163 H 259 H (70-110) mg/dL Plasma Lactic Acid Abelardo (0.7-2.0) mmol/L Phosphorus (2.5-4.5) mg/dL Total Bilirubin (0.2-1.3) mg/dL AST (14-36) U/L ALT (4-34) U/L Alkaline Phosphatase (38-126) U/L Troponin I (0.000-0.034) ng/mL Total Protein (6.3-8.2) g/dL Albumin (3.5-5.0) g/dL Procalcitonin (0.02-0.50) ng/mL TSH (0.465-4.680) mIU/L Free T4 (0.78-2.19) ng/dL Ur Amphetamines Screen (NotDetected) 11/28/24 11/28/24 11/28/24 Range/Units 04:35 05:28 06:06 WBC (4.50-10.00) 10*3/uL RBC (4.10-5.20) 10*6/uL Hgb (12.0-15.0) g/dL Hct (37.2-46.3) % MCH (27.0-32.0) pg MCHC (32.0-37.0) g/dL Immature Gran # (0.00-0.04) 10*3/uL Neutrophils # (1.80-7.70) 10*3/uL Neutrophils # (Manual) (1.3-7.7) k/uL Monocytes # (0.20-1.00) 10*3/uL Eosinophils # (0.04-0.35) 10*3/uL APTT (22.0-30.0) sec ABG pH 7.32 L (7.35-7.45) ABG pCO2 32 L (35-45) mmHg ABG pO2 191 H (83-108) mmHg ABG HCO3 17 L (21-25) mmol/L ABG Total CO2 18 L (19-24) mmol/L ABG O2 Saturation >100.0 H (94-97) % VBG pH (7.31-7.41) VBG HCO3 (24-28) mmol/L Hemoglobin 9.3 L (11.4-16.0) gm/dL Sodium 132 L (137-145) mmol/L Potassium (3.5-5.1) mmol/L Chloride 109 H (98-107) mmol/L Carbon Dioxide 14 L (22-30) mmol/L BUN 21 H (7-17) mg/dL Glucose 225 H (74-99) mg/dL POC Glucose (mg/dL) 243 H (70-110) mg/dL Plasma Lactic Acid Abelardo (0.7-2.0) mmol/L Phosphorus (2.5-4.5) mg/dL Total Bilirubin (0.2-1.3) mg/dL AST 484 H (14-36) U/L ALT 170 H (4-34) U/L Alkaline Phosphatase 265 H (38-126) U/L Troponin I (0.000-0.034) ng/mL Total Protein 5.4 L (6.3-8.2) g/dL Albumin 2.5 L (3.5-5.0) g/dL Procalcitonin (0.02-0.50) ng/mL TSH (0.465-4.680) mIU/L Free T4 (0.78-2.19) ng/dL Ur Amphetamines Screen (NotDetected) 11/28/24 11/28/24 11/28/24 Range/Units 07:06 08:40 08:50 WBC 19.67 H (4.50-10.00) 10*3/uL RBC 3.30 L (4.10-5.20) 10*6/uL Hgb 9.1 L (12.0-15.0) g/dL Hct 28.0 L (37.2-46.3) % MCH (27.0-32.0) pg MCHC (32.0-37.0) g/dL Immature Gran # (0.00-0.04) 10*3/uL Neutrophils # (1.80-7.70) 10*3/uL Neutrophils # (Manual) (1.3-7.7) k/uL Monocytes # (0.20-1.00) 10*3/uL Eosinophils # (0.04-0.35) 10*3/uL APTT (22.0-30.0) sec ABG pH (7.35-7.45) ABG pCO2 (35-45) mmHg ABG pO2 (83-108) mmHg ABG HCO3 (21-25) mmol/L ABG Total CO2 (19-24) mmol/L ABG O2 Saturation (94-97) % VBG pH (7.31-7.41) VBG HCO3 (24-28) mmol/L Hemoglobin (11.4-16.0) gm/dL Sodium (137-145) mmol/L Potassium (3.5-5.1) mmol/L Chloride (98-107) mmol/L Carbon Dioxide (22-30) mmol/L BUN (7-17) mg/dL Glucose (74-99) mg/dL POC Glucose (mg/dL) 201 H 195 H (70-110) mg/dL Plasma Lactic Acid Abelardo (0.7-2.0) mmol/L Phosphorus (2.5-4.5) mg/dL Total Bilirubin (0.2-1.3) mg/dL AST (14-36) U/L ALT (4-34) U/L Alkaline Phosphatase (38-126) U/L Troponin I (0.000-0.034) ng/mL Total Protein (6.3-8.2) g/dL Albumin (3.5-5.0) g/dL Procalcitonin (0.02-0.50) ng/mL TSH (0.465-4.680) mIU/L Free T4 (0.78-2.19) ng/dL Ur Amphetamines Screen (NotDetected) 11/28/24 11/28/24 11/28/24 Range/Units 08:50 09:18 09:56 WBC (4.50-10.00) 10*3/uL RBC (4.10-5.20) 10*6/uL Hgb (12.0-15.0) g/dL Hct (37.2-46.3) % MCH (27.0-32.0) pg MCHC (32.0-37.0) g/dL Immature Gran # (0.00-0.04) 10*3/uL Neutrophils # (1.80-7.70) 10*3/uL Neutrophils # (Manual) (1.3-7.7) k/uL Monocytes # (0.20-1.00) 10*3/uL Eosinophils # (0.04-0.35) 10*3/uL APTT (22.0-30.0) sec ABG pH (7.35-7.45) ABG pCO2 (35-45) mmHg ABG pO2 (83-108) mmHg ABG HCO3 (21-25) mmol/L ABG Total CO2 (19-24) mmol/L ABG O2 Saturation (94-97) % VBG pH (7.31-7.41) VBG HCO3 (24-28) mmol/L Hemoglobin (11.4-16.0) gm/dL Sodium 134 L (137-145) mmol/L Potassium (3.5-5.1) mmol/L Chloride 111 H (98-107) mmol/L Carbon Dioxide 17 L (22-30) mmol/L BUN 19 H (7-17) mg/dL Glucose 192 H (74-99) mg/dL POC Glucose (mg/dL) 190 H 191 H (70-110) mg/dL Plasma Lactic Acid Abelardo (0.7-2.0) mmol/L Phosphorus (2.5-4.5) mg/dL Total Bilirubin (0.2-1.3) mg/dL AST 463 H (14-36) U/L ALT 168 H (4-34) U/L Alkaline Phosphatase 259 H (38-126) U/L Troponin I (0.000-0.034) ng/mL Total Protein 5.4 L (6.3-8.2) g/dL Albumin 2.5 L (3.5-5.0) g/dL Procalcitonin (0.02-0.50) ng/mL TSH (0.465-4.680) mIU/L Free T4 (0.78-2.19) ng/dL Ur Amphetamines Screen (NotDetected) 11/28/24 11/28/24 Range/Units 11:01 12:02 WBC (4.50-10.00) 10*3/uL RBC (4.10-5.20) 10*6/uL Hgb (12.0-15.0) g/dL Hct (37.2-46.3) % MCH (27.0-32.0) pg MCHC (32.0-37.0) g/dL Immature Gran # (0.00-0.04) 10*3/uL Neutrophils # (1.80-7.70) 10*3/uL Neutrophils # (Manual) (1.3-7.7) k/uL Monocytes # (0.20-1.00) 10*3/uL Eosinophils # (0.04-0.35) 10*3/uL APTT (22.0-30.0) sec ABG pH (7.35-7.45) ABG pCO2 (35-45) mmHg ABG pO2 (83-108) mmHg ABG HCO3 (21-25) mmol/L ABG Total CO2 (19-24) mmol/L ABG O2 Saturation (94-97) % VBG pH (7.31-7.41) VBG HCO3 (24-28) mmol/L Hemoglobin (11.4-16.0) gm/dL Sodium (137-145) mmol/L Potassium (3.5-5.1) mmol/L Chloride (98-107) mmol/L Carbon Dioxide (22-30) mmol/L BUN (7-17) mg/dL Glucose (74-99) mg/dL POC Glucose (mg/dL) 184 H 178 H (70-110) mg/dL Plasma Lactic Acid Abelardo (0.7-2.0) mmol/L Phosphorus (2.5-4.5) mg/dL Total Bilirubin (0.2-1.3) mg/dL AST (14-36) U/L ALT (4-34) U/L Alkaline Phosphatase (38-126) U/L Troponin I (0.000-0.034) ng/mL Total Protein (6.3-8.2) g/dL Albumin (3.5-5.0) g/dL Procalcitonin (0.02-0.50) ng/mL TSH (0.465-4.680) mIU/L Free T4 (0.78-2.19) ng/dL Ur Amphetamines Screen (NotDetected) Assessment and Plan (1) Pneumonia Current Visit: Yes Status: Acute Code(s): J18.9 - PNEUMONIA, UNSPECIFIED ORGANISM SNOMED Code(s): 104910439 (2) Sepsis Current Visit: No Status: Acute Code(s): A41.9 - SEPSIS, UNSPECIFIED ORGANISM SNOMED Code(s): 05593972 Plan: 1patient presented the hospital with sepsis in this patient who did have fever tachycardia elevated white count meeting currently for SIRS/sepsis source is pneumonia in this patient admitted to hospital with decreased level of responsiveness requiring intubation concern for possible aspiration pneumonia 2-moxifloxacin allergy 3-we will obtain blood cultures and try to obtain sputum for Gram stain and culture 4-discontinue Rocephin 5-will start the patient on Zosyn 3.37 g every 8 hours while waiting for the culture to finalize We will follow on clinical condition and cultures to further adjust medication if needed Thank you for this consultation we will follow the patient along with you Dictation was produced using [employer] dictation software. please excuse any grammatical, word or spelling errors. Time with Patient: Greater than 30
--- NOTE | 2024-11-28 22:53 | PN ---
PROGRESS NOTE SUBJECTIVE: Remains in ICU. Remains on the ventilator. Temperature 100.2, pulse is low 100s, respiratory rate 20-22, blood pressure 117 to 126 over 60s to 70s, O2 was 98 on 30% on mechanical ventilator. She is spiking fevers, being treated for left lower lobe pneumonia. Dr. Sanchez is consulted. Started on azithromycin, Rocephin, and Zosyn. The patient has extremely high procalcitonin, left lower lobe pneumonia. She is sedated on the vent. OBJECTIVE: CARDIOVASCULAR: S1, S2. Tachycardic. LUNGS: Scattered rhonchi and wheeze. HEMATOLOGY: Negative Homans. LABS: Sodium 132, potassium 4.8, sugars mid 100s to 200s. White count is still elevated at 19.67. ASSESSMENT: 1. Left lower lobe pneumonia. 2. Severe dehydration with elevated lactic acid. 3. Diabetic ketoacidosis. 4. Tachycardia due to hypothyroidism and dehydration. 5. Acute hypoxemic respiratory failure. PLAN: Wean ventilator as soon as possible. No signs of any seizures. Echocardiogram shows severe pulmonary hypertension. Continue with breathing treatments and treatment for pneumonia. Dr. Sanchez's consult is pending. ICU 30 minutes. MMODL / IJN: [id number] /
[2024-11-29 00:08] LABS: Glucose,Whole Blood 249 mg/dL (70-110)
[2024-11-29 03:07] LABS: ALT 317 U/L (4-34); AST 699 U/L (14-36); African American GFR (CKD) >90 (>60 ml/min/1.73 sqM); Albumin 2.3 g/dL (3.5-5.0); Alkaline Phosphatase 234 U/L (38-126); Anion Gap 4 mmol/L; Blood Urea Nitrogen 20 mg/dL (7-17); Calcium 9.1 mg/dL (8.4-10.2); Carbon Dioxide 18 mmol/L (22-30); Chloride 111 mmol/L (98-107); Glucose 269 mg/dL (74-99); Non-African American GFR(CKD) >90 (>60 ml/min/1.73 sqM); Potassium 4.8 mmol/L (3.5-5.1); Sodium 133 mmol/L (137-145); Total Bilirubin 1.9 mg/dL (0.2-1.3); Total Protein 5.4 g/dL (6.3-8.2)
[2024-11-29] MEDS: DEXMEDETOMIDINE/0.9% NACL(PMX) 400 MCG in EMPTY BAG 1 BAG IV SCH (03:49)
[2024-11-29 04:43] LABS: ABG Base Excess -7.9 mmol/L; ABG HCO3 17 mmol/L (21-25); ABG Oxygen Saturation 99.5 % (94-97); ABG PCO2 31 mmHg (35-45); ABG PH 7.35 (7.35-7.45); ABG PO2 131 mmHg (83-108); ABG TCO2 18 mmol/L (19-24)
[2024-11-29 04:43] LABS: Glucose,Whole Blood 294 mg/dL (70-110)
[2024-11-29 05:01] LABS: Allen Test Performed? no
[2024-11-29 05:11] LABS: Basophils # (A) 0.02 10*3/uL (0.00-0.10); Basophils % (A) 0.1 %; HCT 28.7 % (37.2-46.3); HGB 9.3 g/dL (12.0-15.0); Lymphocytes # (A) 1.13 10*3/uL (0.90-5.00); Lymphocytes % (A) 4.8 %; MCH 27.2 pg (27.0-32.0); MCHC 32.4 g/dL (32.0-37.0); MCV 83.9 fL (80.0-97.0); Mean Platelet Volume 12.3 fL (9.5-12.2); Monocytes # (A) 1.86 10*3/uL (0.20-1.00); Monocytes % (A) 7.8 %; Neutrophils # (A) 20.43 10*3/uL (1.80-7.70); Neutrophils % (A) 86.2 %; Platelet Count 208 10*3/uL (140-440); RBC 3.42 10*6/uL (4.10-5.20); WBC 23.71 10*3/uL (4.50-10.00)
[2024-11-29 05:22] LABS: ALT 339 U/L (4-34); AST 688 U/L (14-36); African American GFR (CKD) >90 (>60 ml/min/1.73 sqM); Albumin 2.5 g/dL (3.5-5.0); Alkaline Phosphatase 260 U/L (38-126); Anion Gap 10 mmol/L; Blood Urea Nitrogen 21 mg/dL (7-17); Calcium 9.2 mg/dL (8.4-10.2); Carbon Dioxide 15 mmol/L (22-30); Chloride 109 mmol/L (98-107); Glucose 286 mg/dL (74-99); Magnesium 2.1 mg/dL (1.6-2.3); Non-African American GFR(CKD) >90 (>60 ml/min/1.73 sqM); Potassium 5.2 mmol/L (3.5-5.1); Sodium 134 mmol/L (137-145); Total Bilirubin 2.2 mg/dL (0.2-1.3); Total Protein 5.6 g/dL (6.3-8.2)
--- NOTE | 2024-11-29 07:36 | XR ---
EXAMINATION TYPE: XR chest 1V portable DATE OF EXAM: 11/29/2024 5:19 AM COMPARISON: Chest radiographs from 11/28/2024. CLINICAL INDICATION: Female, 44 years old with history of patient intubated on ventilator, follow up cxr; [facility] TECHNIQUE: XR chest 1V portable Frontal view of the chest. FINDINGS: Lungs/Pleura: There is no evidence of pleural effusion, focal consolidation, or pneumothorax. Pulmonary vascularity: Unremarkable. Heart/mediastinum: Cardiomediastinal silhouette is unremarkable. Musculoskeletal: No acute osseous pathology. Other findings: None Lines/Tubes: Endotracheal tube with distal tip 5.7 cm above the ame. Nasogastric tube with its distal tip and side-port projecting under the diaphragm. IMPRESSION: No acute cardiopulmonary disease/process. [facility], , 11/29/2024 7:33 AM
--- NOTE | 2024-11-29 07:36 | P.PN ---
Subjective Progress Note Date: 11/29/24 PROGRESS NOTE The patient is a 44-year-old female with known history of paroxysmal atrial fibrillation, diabetes mellitus, prior history of DKA who was brought into the hospital with symptoms of unresponsiveness, severe hyperglycemia acidosis. Because of her mental status she was intubated. She was tachycardic, reported to be SVT although the EKG available to me shows atrial flutter with 2-1 conduction. She underwent cardioversion by the EMS and subsequently in the ER and is in sinus mechanism at this time. She was on IV Cardizem that was stopped because of bradycardia. She remains intubated. Her urine output is good. She had a prior history of similar presentation with DKA. The echocardiogram available from 2020 showed a preserved systolic function with mild aortic stenosis and moderate mitral regurgitation. She has been followed by Dr. Santoro and has been anticoagulated as an outpatient because of her paroxysmal atrial fibrillation. Her CT scan of the chest showed left lower lobe infiltrate with enlarged thyroid gland. Her brain CT shows no acute bleed. Her chest x- ray shows the infiltrate. On presentation her blood sugar was 640, plasma lactic acid 19.9. Her troponin was 0.057. This morning her carbon dioxide is 14 and her pH 7.32. November 29: The patient remains intubated, moving her extremities but not following command. She continues to be in atrial fibrillation with controlled ventricular response. Her urinary output has been good. Her blood sugar is under better control. She underwent an echocardiogram that showed an ejection fraction of 55 to 60% with a mean gradient of 25 mmHg across the aortic valve and mild to moderate mitral stenosis with severe pulmonary hypertension, estimated at 60 mmHg. She has been in and out of atrial fibrillation. Medications: Atenolol 25 mg twice a day, folic acid, insulin, methimazole, Xarelto 20 mg daily PHYSICAL EXAMINATION: Blood pressure 125/90 heart rate 90, intubated, moving extremities LUNGS: Clear to auscultation HEART: Irregular rate and rhythm, S1, S2. No S3. Systolic ejection murmur ABDOMEN: Soft, no organomegaly EXTREMETIES: No edema LAB: Hemoglobin 9.3, WBC 23.7, BUN 21, creatinine 0.59. AST 688 ALT 339. Blood sugar 286. pH 7.35. IMPRESSION: 1. Hyperglycemia with hyperosmolar state 2. Paroxysmal atrial fibrillation, anticoagulated, rate controlled 3. Metabolic encephalopathy 4. History of hypothyroidism 5. Alpha 1 antitrypsin 6. Mild to moderate aortic stenosis is severe pulmonary hypertension PLAN: 1. Continue anticoagulation and beta-osbaldo 2. Wean as tolerated 3. Follow renal functions 4. Will need to have reevaluation of for pulmonary pressure after extubation, may require a KWAN after recovery to further evaluate her valvular structures 5. Depending on her progress further recommendations will be made Objective - Vital Signs Vital signs: Vital Signs Temp 99.3 F 11/29/24 04:00 Pulse 100 11/29/24 07:00 Resp 16 11/29/24 07:00 BP 125/93 11/29/24 07:00 Pulse Ox 98 11/29/24 07:00 FiO2 30 11/29/24 04:00 Intake & Output 11/28/24 11/29/24 11/29/24 18:59 06:59 18:59 Intake Total 2095.358 739.977 Output Total 985 1360 Balance 1110.358 -620.023 Weight 72.3 kg 71.6 kg Intake: IV 1836 736 0.9 ART LINE PRESSURE BAG 36 36 D5-0.45% NaCl with KCl 1800 20Meq/l 1,000 ml @ 150 mls/hr IV .Q6H40M [facility] Rx# :[id number] D5-0.45% NaCl with KCl 600 20Meq/l 1,000 ml @ 50 mls /hr IV .Q20H [facility] Rx#: [id number] Piperacillin-Tazobactam 3 100 .375 gm In Sodium Chloride 0.9% 100 ml @ 25 mls/hr IVPB Q8H [facility] Rx#: [id number] Intake, IV Titration 259.358 3.977 Amount Dexmedetomidine/0.9% NaCl 3.977 (Pmx) 400 mcg In Empty Bag 1 bag @ 0.2 MCG/KG/HR 3.615 mls/hr IV .Q24H [facility] Rx#:[id number] Insulin Regular 100 unit 25.283 In Sodium Chloride 0.9% 100 ml @ 0.1 UNITS/KG/HR 6.807 mls/hr IV .[id number] [facility] Rx#:[id number] Midazolam HCl 50 mg In 10.350 Sodium Chloride 0.9% 40 ml @ 3 MG/HR 3 mls/hr IV .[id number] [facility] Rx#: [id number] Sodium Chloride 0.9% 1, 80 000 ml @ 999 mls/hr IV . Q1H1M [facility] Rx#:[id number] cefTRIAXone 1 gm In 50 Sodium Chloride 0.9% 50 ml @ 100 mls/hr IVPB Q12HR [facility] Rx#:[id number] propofoL 1,000 mg In 93.725 Empty Bag 1 bag @ 15 MCG/ KG/MIN 6.124 mls/hr IV . [id number] [facility] Rx#:[id number] Output: Urine 985 1360 Other: Voiding Method Indwelling Catheter Indwelling Catheter ABP, PAP, CO, CI - Last Documented Arterial Blood Pressure 140/64 - Labs CBC & Chem 7: 11/29/24 04:40 11/29/24 04:40 Labs: Abnormal Lab Results - Last 24 Hours (Table) 11/28/24 11/28/24 11/28/24 Range/Units 04:35 08:40 08:50 WBC 19.67 H (4.50-10.00) 10*3/uL RBC 3.30 L (4.10-5.20) 10*6/uL Hgb 9.1 L (12.0-15.0) g/dL Hct 28.0 L (37.2-46.3) % MPV (9.5-12.2) fL Immature Gran # (0.00-0.04) 10*3/uL Neutrophils # (1.80-7.70) 10*3/uL Monocytes # (0.20-1.00) 10*3/uL Eosinophils # (0.04-0.35) 10*3/uL ABG pCO2 (35-45) mmHg ABG pO2 (83-108) mmHg ABG HCO3 (21-25) mmol/L ABG Total CO2 (19-24) mmol/L ABG O2 Saturation (94-97) % Hemoglobin (11.4-16.0) gm/dL Sodium (137-145) mmol/L Potassium (3.5-5.1) mmol/L Chloride (98-107) mmol/L Carbon Dioxide (22-30) mmol/L BUN (7-17) mg/dL Glucose (74-99) mg/dL POC Glucose (mg/dL) 195 H (70-110) mg/dL Total Bilirubin (0.2-1.3) mg/dL AST (14-36) U/L ALT (4-34) U/L Alkaline Phosphatase (38-126) U/L Total Protein (6.3-8.2) g/dL Albumin (3.5-5.0) g/dL Triglycerides 183.00 H (0.00-149.00) mg/dL HDL Cholesterol 27.50 L (40.00-60.00) mg/dL 11/28/24 11/28/24 11/28/24 Range/Units 08:50 09:18 09:56 WBC (4.50-10.00) 10*3/uL RBC (4.10-5.20) 10*6/uL Hgb (12.0-15.0) g/dL Hct (37.2-46.3) % MPV (9.5-12.2) fL Immature Gran # (0.00-0.04) 10*3/uL Neutrophils # (1.80-7.70) 10*3/uL Monocytes # (0.20-1.00) 10*3/uL Eosinophils # (0.04-0.35) 10*3/uL ABG pCO2 (35-45) mmHg ABG pO2 (83-108) mmHg ABG HCO3 (21-25) mmol/L ABG Total CO2 (19-24) mmol/L ABG O2 Saturation (94-97) % Hemoglobin (11.4-16.0) gm/dL Sodium 134 L (137-145) mmol/L Potassium (3.5-5.1) mmol/L Chloride 111 H (98-107) mmol/L Carbon Dioxide 17 L (22-30) mmol/L BUN 19 H (7-17) mg/dL Glucose 192 H (74-99) mg/dL POC Glucose (mg/dL) 190 H 191 H (70-110) mg/dL Total Bilirubin (0.2-1.3) mg/dL AST 463 H (14-36) U/L ALT 168 H (4-34) U/L Alkaline Phosphatase 259 H (38-126) U/L Total Protein 5.4 L (6.3-8.2) g/dL Albumin 2.5 L (3.5-5.0) g/dL Triglycerides (0.00-149.00) mg/dL HDL Cholesterol (40.00-60.00) mg/dL 11/28/24 11/28/24 11/28/24 Range/Units 11:01 12:02 12:50 WBC (4.50-10.00) 10*3/uL RBC (4.10-5.20) 10*6/uL Hgb (12.0-15.0) g/dL Hct (37.2-46.3) % MPV (9.5-12.2) fL Immature Gran # (0.00-0.04) 10*3/uL Neutrophils # (1.80-7.70) 10*3/uL Monocytes # (0.20-1.00) 10*3/uL Eosinophils # (0.04-0.35) 10*3/uL ABG pCO2 (35-45) mmHg ABG pO2 (83-108) mmHg ABG HCO3 (21-25) mmol/L ABG Total CO2 (19-24) mmol/L ABG O2 Saturation (94-97) % Hemoglobin (11.4-16.0) gm/dL Sodium (137-145) mmol/L Potassium (3.5-5.1) mmol/L Chloride (98-107) mmol/L Carbon Dioxide (22-30) mmol/L BUN (7-17) mg/dL Glucose (74-99) mg/dL POC Glucose (mg/dL) 184 H 178 H 155 H (70-110) mg/dL Total Bilirubin (0.2-1.3) mg/dL AST (14-36) U/L ALT (4-34) U/L Alkaline Phosphatase (38-126) U/L Total Protein (6.3-8.2) g/dL Albumin (3.5-5.0) g/dL Triglycerides (0.00-149.00) mg/dL HDL Cholesterol (40.00-60.00) mg/dL 11/28/24 11/28/24 11/28/24 Range/Units 13:11 13:55 16:13 WBC (4.50-10.00) 10*3/uL RBC (4.10-5.20) 10*6/uL Hgb (12.0-15.0) g/dL Hct (37.2-46.3) % MPV (9.5-12.2) fL Immature Gran # (0.00-0.04) 10*3/uL Neutrophils # (1.80-7.70) 10*3/uL Monocytes # (0.20-1.00) 10*3/uL Eosinophils # (0.04-0.35) 10*3/uL ABG pCO2 (35-45) mmHg ABG pO2 (83-108) mmHg ABG HCO3 (21-25) mmol/L ABG Total CO2 (19-24) mmol/L ABG O2 Saturation (94-97) % Hemoglobin (11.4-16.0) gm/dL Sodium 132 L (137-145) mmol/L Potassium (3.5-5.1) mmol/L Chloride 111 H (98-107) mmol/L Carbon Dioxide 15 L (22-30) mmol/L BUN 19 H (7-17) mg/dL Glucose 162 H (74-99) mg/dL POC Glucose (mg/dL) 137 H 189 H (70-110) mg/dL Total Bilirubin (0.2-1.3) mg/dL AST 493 H (14-36) U/L ALT 204 H (4-34) U/L Alkaline Phosphatase 238 H (38-126) U/L Total Protein 5.7 L (6.3-8.2) g/dL Albumin 2.6 L (3.5-5.0) g/dL Triglycerides (0.00-149.00) mg/dL HDL Cholesterol (40.00-60.00) mg/dL 11/28/24 11/28/24 11/29/24 Range/Units 17:07 18:21 00:07 WBC (4.50-10.00) 10*3/uL RBC (4.10-5.20) 10*6/uL Hgb (12.0-15.0) g/dL Hct (37.2-46.3) % MPV (9.5-12.2) fL Immature Gran # (0.00-0.04) 10*3/uL Neutrophils # (1.80-7.70) 10*3/uL Monocytes # (0.20-1.00) 10*3/uL Eosinophils # (0.04-0.35) 10*3/uL ABG pCO2 (35-45) mmHg ABG pO2 (83-108) mmHg ABG HCO3 (21-25) mmol/L ABG Total CO2 (19-24) mmol/L ABG O2 Saturation (94-97) % Hemoglobin (11.4-16.0) gm/dL Sodium (137-145) mmol/L Potassium (3.5-5.1) mmol/L Chloride (98-107) mmol/L Carbon Dioxide (22-30) mmol/L BUN (7-17) mg/dL Glucose (74-99) mg/dL POC Glucose (mg/dL) 253 H 278 H 249 H (70-110) mg/dL Total Bilirubin (0.2-1.3) mg/dL AST (14-36) U/L ALT (4-34) U/L Alkaline Phosphatase (38-126) U/L Total Protein (6.3-8.2) g/dL Albumin (3.5-5.0) g/dL Triglycerides (0.00-149.00) mg/dL HDL Cholesterol (40.00-60.00) mg/dL 11/29/24 11/29/24 11/29/24 Range/Units 02:28 04:40 04:40 WBC 23.71 H (4.50-10.00) 10*3/uL RBC 3.42 L (4.10-5.20) 10*6/uL Hgb 9.3 L (12.0-15.0) g/dL Hct 28.7 L (37.2-46.3) % MPV 12.3 H (9.5-12.2) fL Immature Gran # 0.27 H (0.00-0.04) 10*3/uL Neutrophils # 20.43 H (1.80-7.70) 10*3/uL Monocytes # 1.86 H (0.20-1.00) 10*3/uL Eosinophils # 0.00 L (0.04-0.35) 10*3/uL ABG pCO2 (35-45) mmHg ABG pO2 (83-108) mmHg ABG HCO3 (21-25) mmol/L ABG Total CO2 (19-24) mmol/L ABG O2 Saturation (94-97) % Hemoglobin (11.4-16.0) gm/dL Sodium 133 L 134 L (137-145) mmol/L Potassium 5.2 H (3.5-5.1) mmol/L Chloride 111 H 109 H (98-107) mmol/L Carbon Dioxide 18 L 15 L (22-30) mmol/L BUN 20 H 21 H (7-17) mg/dL Glucose 269 H 286 H (74-99) mg/dL POC Glucose (mg/dL) (70-110) mg/dL Total Bilirubin 1.9 H 2.2 H (0.2-1.3) mg/dL AST 699 H 688 H (14-36) U/L ALT 317 H 339 H (4-34) U/L Alkaline Phosphatase 234 H 260 H (38-126) U/L Total Protein 5.4 L 5.6 L (6.3-8.2) g/dL Albumin 2.3 L 2.5 L (3.5-5.0) g/dL Triglycerides (0.00-149.00) mg/dL HDL Cholesterol (40.00-60.00) mg/dL 11/29/24 11/29/24 Range/Units 04:40 04:41 WBC (4.50-10.00) 10*3/uL RBC (4.10-5.20) 10*6/uL Hgb (12.0-15.0) g/dL Hct (37.2-46.3) % MPV (9.5-12.2) fL Immature Gran # (0.00-0.04) 10*3/uL Neutrophils # (1.80-7.70) 10*3/uL Monocytes # (0.20-1.00) 10*3/uL Eosinophils # (0.04-0.35) 10*3/uL ABG pCO2 31 L (35-45) mmHg ABG pO2 131 H (83-108) mmHg ABG HCO3 17 L (21-25) mmol/L ABG Total CO2 18 L (19-24) mmol/L ABG O2 Saturation 99.5 H (94-97) % Hemoglobin 9.7 L (11.4-16.0) gm/dL Sodium (137-145) mmol/L Potassium (3.5-5.1) mmol/L Chloride (98-107) mmol/L Carbon Dioxide (22-30) mmol/L BUN (7-17) mg/dL Glucose (74-99) mg/dL POC Glucose (mg/dL) 294 H (70-110) mg/dL Total Bilirubin (0.2-1.3) mg/dL AST (14-36) U/L ALT (4-34) U/L Alkaline Phosphatase (38-126) U/L Total Protein (6.3-8.2) g/dL Albumin (3.5-5.0) g/dL Triglycerides (0.00-149.00) mg/dL HDL Cholesterol (40.00-60.00) mg/dL
[2024-11-29] MEDS: SODIUM CHLORIDE 0.9% 1,000 ML IV SCH (09:40)
--- NOTE | 2024-11-29 11:34 | CT ---
EXAMINATION TYPE: CT brain wo con DATE OF EXAM: 11/29/2024 11:16 AM COMPARISON: 11/27/2024. CLINICAL INDICATION: Female, 44 years old with history of r/o CVA; Hx of HHS, r/o CVA; Hx of HHS TECHNIQUE: Brain: Axial CT images of the brain were obtained with coronal and sagittal reformats created and rev iewed. Contrast used: None. Oral contrast used: None. CT DLP: 1143.4 mGycm, Automated exposure control for dose reduction was used. FINDINGS: Brain: Extra-axial spaces: No abnormal extra-axial fluid collections. Ventricular system: Within normal limits Cerebral parenchyma: No acute intraparenchymal hemorrhage or mass effect. The kinney-white junction is well differentiated. Cerebellum: Unremarkable. Mass effect: No evidence of midline shift. Intracranial vasculature: unremarkable Soft tissues: Normal. Calvarium/osseous structures: No depressed skull fracture. Paranasal sinuses and mastoid air cells: Mild scattered paranasal sinus disease personal left maxilla ry sinus. Visualized orbits: Orbital contents are intact. IMPRESSION: 1. No acute intracranial process. 2. Chronic left maxillary sinusitis. [facility], , 11/29/2024 11:31 AM
[2024-11-29] MEDS: SODIUM CHLORIDE 0.9% 1,000 ML IV ONE (11:38)
[2024-11-29 11:41] LABS: Glucose,Whole Blood 277 mg/dL (70-110)
[2024-11-29] MEDS: NOREPINEPHRINE 4 MG in SODIUM CHLORIDE 0.9% 250 ML IV SCH (12:27)
--- NOTE | 2024-11-29 12:34 | P.PN ---
Subjective Progress Note Date: 11/29/24 Principal diagnosis: Acute hyperglycemia with hyperosmolar state and acute metabolic encephalopathy with acute hypoxic respiratory failure requiring intubation mechanical ventilati on. This is a 44-year-old female with known history of diabetes, patient had previous episode of DKA back in June of 2024, and she was seen by Dr. Gonzalez on consultation at the time. This time the patient seems to have a similar presentation she was brought into the ER with altered mental status, patient was unresponsive at home, and she was seen by EMS with what seems to be a picture of SVT. Patient did not respond to cardioversion by EMS. Heart rate rate was in the 200 range, patient was brought into the ER, and as soon as she arrived the patient was noted to be in distress, intubated and mechanically ventilated by the ER physician. Workup in the ER included venous blood gas s howing a bicarb of 8 and a pH of 6.92, she had blood sugar as high as 600+, lactic acid was as high as 19.9, urinalysis showed no evidence of ketones in the urine. CT of the brain showed no evidence of acute disease except for mild inflammatory changes in the left maxillary sinus and it also showed mild to moderate generalized atrophy. Chest x-ray showed endotracheal tube to be low- lying seems to be at the level just above the mae apparently this was adjusted already by the ER physician based on her initial chest x-ray. Could not obtain any history from the patient as she seems to be obtunded and unresponsive to any stimuli. Has recommended treatment as per DKA protocol, I also recommended CT of the brain to be done which came back nondiagnostic. In the meantime the patient is receiving fluid boluses so far she has received 2- 1/2 L of 0.9 normal saline and I recommended starting the patient on insulin drip. Patient was seen today on 11/28/2024, patient remains in the ICU, we admitted the patient yesterday from the ER. Remains intubated and mechanically ventilated, on assist-control rate 16 tidal volume 450 FiO2 30% and PEEP of 5 ABG showed a pO2 of 191 pCO2 32 pH of 7.32. Patient is on multiple drips including insulin drip at 2.95 units/h propofol at 50 mcg/kg/min Versed at 3 mg/h D5W at 120 cc/h. Patient is sedated, unable to assess mental status, however I plan to hold sedation today, address mental status off sedation, and if the patient continues to do well may check weaning parameters for possible extubation today if the patient does well from the neurological perspective. Her labs today showed leukocytosis with WBC of 19.67 hemoglobin 9.1. Liver enzymes are elevated. Her electrolytes are normal bicarb is 17 anion gap is resolved. Renal profile is no rmal. Patient was seen today on 11/29/2024, remains in the ICU, intubated and mechanically ventilated, on assist-control rate of 16 tidal volume 450 FiO2 30% and PEEP of 5 ABG showed a pO2 of 131 pCO2 31 pH of 7.35. Patient is now receiving IV fluid D5 4 5 at 50 cc/h and I changed that to 0.9 normal saline at 100 cc/h. Patient remains encephalopathic, hence I recommended a repeat CT of the head to be done today, neurology is on board. Repeat CT of the brain showed no acute intracranial process, chest x-ray today showed no acute cardiopulmonary disease. Patient does have leukocytosis with WBC count of 23.7 hemoglobin 9.3, basic metabolic profile showed potassium of 5.2 bicarb remains low at 15 anion gap is 10. Liver enzymes remain elevated with total bilirubin of 2.2 AST 688 ALT 339 alkaline phosphatase 260. Will recommend ultrasound of the liver to be done today. Will also order ammonia level as the patient seems to be quite encephalopathic. Objective - Vital Signs Vital signs: Vital Signs Temp 98.9 F 11/29/24 12:00 Pulse 100 11/29/24 12:00 Resp 31 H 11/29/24 12:00 BP 88/46 11/29/24 12:00 Pulse Ox 97 11/29/24 12:00 FiO2 30 11/29/24 12:00 Intake & Output 11/28/24 11/29/24 11/29/24 18:59 06:59 18:59 Intake Total 2095.358 440.511 2132 Output Total 985 1360 380 Balance 1110.358 -197.495 6224 Weight 72.3 kg 71.6 kg 71.6 kg Intake: IV 1836 736 215 0.9 ART LINE PRESSURE BAG 36 36 15 D5-0.45% NaCl with KCl 1800 20Meq/l 1,000 ml @ 150 mls/hr IV .Q6H40M [facility] Rx# :[id number] D5-0.45% NaCl with KCl 600 100 20Meq/l 1,000 ml @ 50 mls /hr IV .Q20H [facility] Rx#: [id number] Piperacillin-Tazobactam 3 100 100 .375 gm In Sodium Chloride 0.9% 100 ml @ 25 mls/hr IVPB Q8H [facility] Rx#: [id number] Intake, IV Titration 259.358 3.977 1300 Amount Dexmedetomidine/0.9% NaCl 3.977 (Pmx) 400 mcg In Empty Bag 1 bag @ 0.2 MCG/KG/HR 3.615 mls/hr IV .Q24H [facility] Rx#:[id number] Insulin Regular 100 unit 25.283 In Sodium Chloride 0.9% 100 ml @ 0.1 UNITS/KG/HR 6.807 mls/hr IV .[id number] [facility] Rx#:[id number] Midazolam HCl 50 mg In 10.350 Sodium Chloride 0.9% 40 ml @ 3 MG/HR 3 mls/hr IV .[id number] [facility] Rx#: [id number] Sodium Chloride 0.9% 1, 300 000 ml @ 100 mls/hr IV . Q10H [facility] Rx#:[id number] Sodium Chloride 0.9% 1, 80 000 ml @ 999 mls/hr IV . Q1H1M [facility] Rx#:[id number] Sodium Chloride 0.9% 1, 1000 000 ml @ 999 mls/hr IV . Q1H1M [facility] Rx#:[id number] cefTRIAXone 1 gm In 50 Sodium Chloride 0.9% 50 ml @ 100 mls/hr IVPB Q12HR [facility] Rx#:[id number] propofoL 1,000 mg In 93.725 Empty Bag 1 bag @ 15 MCG/ KG/MIN 6.124 mls/hr IV . [id number] [facility] Rx#:[id number] Other 60 Output: Urine 985 1360 380 Other: Voiding Method Indwelling Catheter Indwelling Catheter ABP, PAP, CO, CI - Last Documented Arterial Blood Pressure 82/41 - Exam General: Revealed a 44-year-old female intubated mechanically ventilated, unresponsive to any stimuli. In spite of being off propofol since yesterday. Derm: warm, dry, intact Head: atraumatic, normocephalic, symmetric, endotracheal tube is intact. Eyes: EOMI, anicteric sclera Mouth: no lip lesion, dry mucus membranes Cardiovascular: Tachycardic, irregular rhythm, no S3 gallop. Lungs: Diminished breath sound bilaterally no rhonchi no wheezes Abdominal: soft, diffuse nonspecific tenderness to palpataion, no appreciable organomegaly Extremities: No clubbing edema or cyanosis Neuro: Patient opens eyes with deep painful stimuli only and no other responses noted. Psych: Could not assess - Labs CBC & Chem 7: 11/29/24 04:40 11/29/24 04:40 Labs: Abnormal Lab Results - Last 24 Hours (Table) 11/28/24 11/28/24 11/28/24 Range/Units 04:35 12:50 13:11 WBC (4.50-10.00) 10*3/uL RBC (4.10-5.20) 10*6/uL Hgb (12.0-15.0) g/dL Hct (37.2-46.3) % MPV (9.5-12.2) fL Immature Gran # (0.00-0.04) 10*3/uL Neutrophils # (1.80-7.70) 10*3/uL Monocytes # (0.20-1.00) 10*3/uL Eosinophils # (0.04-0.35) 10*3/uL ABG pCO2 (35-45) mmHg ABG pO2 (83-108) mmHg ABG HCO3 (21-25) mmol/L ABG Total CO2 (19-24) mmol/L ABG O2 Saturation (94-97) % Hemoglobin (11.4-16.0) gm/dL Sodium 132 L (137-145) mmol/L Potassium (3.5-5.1) mmol/L Chloride 111 H (98-107) mmol/L Carbon Dioxide 15 L (22-30) mmol/L BUN 19 H (7-17) mg/dL Glucose 162 H (74-99) mg/dL POC Glucose (mg/dL) 155 H (70-110) mg/dL Hemoglobin A1c (<=6.0) % Total Bilirubin (0.2-1.3) mg/dL AST 493 H (14-36) U/L ALT 204 H (4-34) U/L Alkaline Phosphatase 238 H (38-126) U/L Total Protein 5.7 L (6.3-8.2) g/dL Albumin 2.6 L (3.5-5.0) g/dL Triglycerides 183.00 H (0.00-149.00) mg/dL HDL Cholesterol 27.50 L (40.00-60.00) mg/dL 11/28/24 11/28/24 11/28/24 Range/Units 13:55 16:13 17:07 WBC (4.50-10.00) 10*3/uL RBC (4.10-5.20) 10*6/uL Hgb (12.0-15.0) g/dL Hct (37.2-46.3) % MPV (9.5-12.2) fL Immature Gran # (0.00-0.04) 10*3/uL Neutrophils # (1.80-7.70) 10*3/uL Monocytes # (0.20-1.00) 10*3/uL Eosinophils # (0.04-0.35) 10*3/uL ABG pCO2 (35-45) mmHg ABG pO2 (83-108) mmHg ABG HCO3 (21-25) mmol/L ABG Total CO2 (19-24) mmol/L ABG O2 Saturation (94-97) % Hemoglobin (11.4-16.0) gm/dL Sodium (137-145) mmol/L Potassium (3.5-5.1) mmol/L Chloride (98-107) mmol/L Carbon Dioxide (22-30) mmol/L BUN (7-17) mg/dL Glucose (74-99) mg/dL POC Glucose (mg/dL) 137 H 189 H 253 H (70-110) mg/dL Hemoglobin A1c (<=6.0) % Total Bilirubin (0.2-1.3) mg/dL AST (14-36) U/L ALT (4-34) U/L Alkaline Phosphatase (38-126) U/L Total Protein (6.3-8.2) g/dL Albumin (3.5-5.0) g/dL Triglycerides (0.00-149.00) mg/dL HDL Cholesterol (40.00-60.00) mg/dL 11/28/24 11/29/24 11/29/24 Range/Units 18:21 00:07 02:28 WBC (4.50-10.00) 10*3/uL RBC (4.10-5.20) 10*6/uL Hgb (12.0-15.0) g/dL Hct (37.2-46.3) % MPV (9.5-12.2) fL Immature Gran # (0.00-0.04) 10*3/uL Neutrophils # (1.80-7.70) 10*3/uL Monocytes # (0.20-1.00) 10*3/uL Eosinophils # (0.04-0.35) 10*3/uL ABG pCO2 (35-45) mmHg ABG pO2 (83-108) mmHg ABG HCO3 (21-25) mmol/L ABG Total CO2 (19-24) mmol/L ABG O2 Saturation (94-97) % Hemoglobin (11.4-16.0) gm/dL Sodium 133 L (137-145) mmol/L Potassium (3.5-5.1) mmol/L Chloride 111 H (98-107) mmol/L Carbon Dioxide 18 L (22-30) mmol/L BUN 20 H (7-17) mg/dL Glucose 269 H (74-99) mg/dL POC Glucose (mg/dL) 278 H 249 H (70-110) mg/dL Hemoglobin A1c (<=6.0) % Total Bilirubin 1.9 H (0.2-1.3) mg/dL AST 699 H (14-36) U/L ALT 317 H (4-34) U/L Alkaline Phosphatase 234 H (38-126) U/L Total Protein 5.4 L (6.3-8.2) g/dL Albumin 2.3 L (3.5-5.0) g/dL Triglycerides (0.00-149.00) mg/dL HDL Cholesterol (40.00-60.00) mg/dL 11/29/24 11/29/24 11/29/24 Range/Units 04:40 04:40 04:40 WBC 23.71 H (4.50-10.00) 10*3/uL RBC 3.42 L (4.10-5.20) 10*6/uL Hgb 9.3 L (12.0-15.0) g/dL Hct 28.7 L (37.2-46.3) % MPV 12.3 H (9.5-12.2) fL Immature Gran # 0.27 H (0.00-0.04) 10*3/uL Neutrophils # 20.43 H (1.80-7.70) 10*3/uL Monocytes # 1.86 H (0.20-1.00) 10*3/uL Eosinophils # 0.00 L (0.04-0.35) 10*3/uL ABG pCO2 (35-45) mmHg ABG pO2 (83-108) mmHg ABG HCO3 (21-25) mmol/L ABG Total CO2 (19-24) mmol/L ABG O2 Saturation (94-97) % Hemoglobin (11.4-16.0) gm/dL Sodium 134 L (137-145) mmol/L Potassium 5.2 H (3.5-5.1) mmol/L Chloride 109 H (98-107) mmol/L Carbon Dioxide 15 L (22-30) mmol/L BUN 21 H (7-17) mg/dL Glucose 286 H (74-99) mg/dL POC Glucose (mg/dL) (70-110) mg/dL Hemoglobin A1c 7.0 H (<=6.0) % Total Bilirubin 2.2 H (0.2-1.3) mg/dL AST 688 H (14-36) U/L ALT 339 H (4-34) U/L Alkaline Phosphatase 260 H (38-126) U/L Total Protein 5.6 L (6.3-8.2) g/dL Albumin 2.5 L (3.5-5.0) g/dL Triglycerides (0.00-149.00) mg/dL HDL Cholesterol (40.00-60.00) mg/dL 11/29/24 11/29/24 11/29/24 Range/Units 04:40 04:41 11:40 WBC (4.50-10.00) 10*3/uL RBC (4.10-5.20) 10*6/uL Hgb (12.0-15.0) g/dL Hct (37.2-46.3) % MPV (9.5-12.2) fL Immature Gran # (0.00-0.04) 10*3/uL Neutrophils # (1.80-7.70) 10*3/uL Monocytes # (0.20-1.00) 10*3/uL Eosinophils # (0.04-0.35) 10*3/uL ABG pCO2 31 L (35-45) mmHg ABG pO2 131 H (83-108) mmHg ABG HCO3 17 L (21-25) mmol/L ABG Total CO2 18 L (19-24) mmol/L ABG O2 Saturation 99.5 H (94-97) % Hemoglobin 9.7 L (11.4-16.0) gm/dL Sodium (137-145) mmol/L Potassium (3.5-5.1) mmol/L Chloride (98-107) mmol/L Carbon Dioxide (22-30) mmol/L BUN (7-17) mg/dL Glucose (74-99) mg/dL POC Glucose (mg/dL) 294 H 277 H (70-110) mg/dL Hemoglobin A1c (<=6.0) % Total Bilirubin (0.2-1.3) mg/dL AST (14-36) U/L ALT (4-34) U/L Alkaline Phosphatase (38-126) U/L Total Protein (6.3-8.2) g/dL Albumin (3.5-5.0) g/dL Triglycerides (0.00-149.00) mg/dL HDL Cholesterol (40.00-60.00) mg/dL Assessment and Plan Assessment: Impression: Acute hypoxic respiratory failure secondary to hyperosmolar state and hyperglycemia with acute metabolic encephalopathy Acute hyperglycemia with hyper osmolar state Acute metabolic encephalopathy secondary to above Acute metabolic acidosis/lactic acidosis secondary to above History of diabetes Sinus tachycardia Severe dehydration History of hyperthyroidism on Tapazole, history of Graves' disease, TSH is low, free T4 is slightly elevated, patient is on Tapazole Paroxysmal atrial fibrillation History of alpha 1 antitrypsin deficiency MZ disease History of gastroparesis Recommendation: Reviewed repeat CT of the brain Recommended ultrasound of the liver and serum ammonia level Continue to monitor in the ICU Continue ventilatory support, not ready for weaning based on her abnormal mental status Continue IV fluids and continue insulin subcu as per protocol including Levemir insulin NovoLog insulin Continue home meds including Tapazole Continue GI DVT prophylaxis Continue beta-blockers patient was initially treated with Cardizem on her initial presentation with supraventricular tachycardia/atrial fibrillation Continue anticoagulation Continue antibiotics empirically Patient is critically ill Critical care time is 35 minutes Will continue to follow. Time with Patient: Greater than 30
--- NOTE | 2024-11-29 14:17 | US ---
EXAMINATION TYPE: US liver DATE OF EXAM: 11/29/2024 COMPARISON: NONE CLINICAL INDICATION: Female, 44 years old with history of Elevated liver enzymes; Intubated ICU patie nt with DKA TECHNIQUE: Grayscale and color Doppler imaging of the right upper quadrant was performed. FINDINGS: EXAM MEASUREMENTS: Liver Length: 14.1 cm Gallbladder Wall: 0.2 cm CBD: 0.4 cm Right Kidney: 10.4 x 4.4 x 5.1 cm IMAGING SPECIALIST NOTES:Intubated ICU patient, difficult to exam Pancreas: wnl Liver: difficult to penetrate Gallbladder: wnl Evidence for sonographic Morales's sign: no CBD: wnl Right Kidney: limited views, for reasons stated above IMPRESSION: 1. No suspicious acute ultrasound abnormality right upper quadrant [facility] Alexis López, , 11/29/2024 2:14 PM
--- NOTE | 2024-11-29 14:34 | P.PN ---
Subjective Progress Note Date: 11/29/24 I am following-up with patient and per the nurse patient is not on sedation for 24 hours but continues to be severely drowsy. Per the nurse, patient is moving extremities spontaneously and would open eyes and move head spontaneously. Objective - Vital Signs Vital signs: Vital Signs Temp 98.9 F 11/29/24 12:00 Pulse 103 H 11/29/24 14:15 Resp 28 H 11/29/24 14:15 BP 111/57 11/29/24 14:15 Pulse Ox 97 11/29/24 14:15 FiO2 30 11/29/24 12:00 Intake & Output 11/28/24 11/29/24 11/29/24 18:59 06:59 18:59 Intake Total 2095.358 099.848 2358.049 Output Total 985 1360 480 Balance 1110.358 -151.089 1175.049 Weight 72.3 kg 71.6 kg 71.6 kg Intake: IV 1836 736 221 0.9 ART LINE PRESSURE BAG 36 36 21 D5-0.45% NaCl with KCl 1800 20Meq/l 1,000 ml @ 150 mls/hr IV .Q6H40M [facility] Rx# :[id number] D5-0.45% NaCl with KCl 600 100 20Meq/l 1,000 ml @ 50 mls /hr IV .Q20H [facility] Rx#: [id number] Piperacillin-Tazobactam 3 100 100 .375 gm In Sodium Chloride 0.9% 100 ml @ 25 mls/hr IVPB Q8H [facility] Rx#: [id number] Intake, IV Titration 259.358 3.977 1414.049 Amount Dexmedetomidine/0.9% NaCl 3.977 (Pmx) 400 mcg In Empty Bag 1 bag @ 0.2 MCG/KG/HR 3.615 mls/hr IV .Q24H [facility] Rx#:[id number] Insulin Regular 100 unit 25.283 In Sodium Chloride 0.9% 100 ml @ 0.1 UNITS/KG/HR 6.807 mls/hr IV .[id number] [facility] Rx#:[id number] Midazolam HCl 50 mg In 10.350 Sodium Chloride 0.9% 40 ml @ 3 MG/HR 3 mls/hr IV .[id number] [facility] Rx#: [id number] Norepinephrine 4 mg In 14.049 Sodium Chloride 0.9% 250 ml @ 0.03 MCG/KG/MIN 8. 184 mls/hr IV .Q24H [facility] Rx#:[id number] Sodium Chloride 0.9% 1, 400 000 ml @ 100 mls/hr IV . Q10H [facility] Rx#:[id number] Sodium Chloride 0.9% 1, 80 000 ml @ 999 mls/hr IV . Q1H1M [facility] Rx#:[id number] Sodium Chloride 0.9% 1, 1000 000 ml @ 999 mls/hr IV . Q1H1M [facility] Rx#:[id number] cefTRIAXone 1 gm In 50 Sodium Chloride 0.9% 50 ml @ 100 mls/hr IVPB Q12HR [facility] Rx#:[id number] propofoL 1,000 mg In 93.725 Empty Bag 1 bag @ 15 MCG/ KG/MIN 6.124 mls/hr IV . [id number] [facility] Rx#:[id number] Tube Feeding 10 Other 60 Output: Urine 985 1360 480 Other: Voiding Method Indwelling Catheter Indwelling Catheter ABP, PAP, CO, CI - Last Documented Arterial Blood Pressure 111/50 - Exam General: Lying in bed and does not appear in acute distress. Lung: Intubated on a ventilator. Neuro: Very limited. Grimaces face to painful stimuli. Otherwise examination is very limited. Not verbalizing or following commands. No spontaneous movement of extremities. Some of the workup during the hospital visit consisted of: POC glucose is more than 600. Potassium 6.7,, dioxide level is less than 5, plasma lactic acid vein is 9.9, TSH is less than 0.015 and the free T4 is 4.5 Phosphorus is 5.5 B12: 664 Serum folate: 8.40 Ammonia 29 Urine Drug send is positive for amphetamine CT of the head is reported as no acute bleed or mass effect. Mild to moderate generalized atrophy. Mild inflammatory change in the left maxillary sinus. Patient reviewed the CT and agree there is no acute or subacute stroke or any mass effect. Routine EEG: Is abnormal. The background slowing is suggestive of mild to moderate encephalopathy. The diffuse suppression activity is likely due to medication effect (IV Midazolam and Propofol). Otherwise, there is no focal slowing, epileptiform discharges or seizure on the EEG. Repeat CT head is negative acute intracranial process - Labs CBC & Chem 7: 11/29/24 04:40 11/29/24 04:40 Labs: Abnormal Lab Results - Last 24 Hours (Table) 11/28/24 11/28/24 11/28/24 Range/Units 04:35 16:13 17:07 WBC (4.50-10.00) 10*3/uL RBC (4.10-5.20) 10*6/uL Hgb (12.0-15.0) g/dL Hct (37.2-46.3) % MPV (9.5-12.2) fL Immature Gran # (0.00-0.04) 10*3/uL Neutrophils # (1.80-7.70) 10*3/uL Monocytes # (0.20-1.00) 10*3/uL Eosinophils # (0.04-0.35) 10*3/uL ABG pCO2 (35-45) mmHg ABG pO2 (83-108) mmHg ABG HCO3 (21-25) mmol/L ABG Total CO2 (19-24) mmol/L ABG O2 Saturation (94-97) % Hemoglobin (11.4-16.0) gm/dL Sodium (137-145) mmol/L Potassium (3.5-5.1) mmol/L Chloride (98-107) mmol/L Carbon Dioxide (22-30) mmol/L BUN (7-17) mg/dL Glucose (74-99) mg/dL POC Glucose (mg/dL) 189 H 253 H (70-110) mg/dL Hemoglobin A1c (<=6.0) % Total Bilirubin (0.2-1.3) mg/dL AST (14-36) U/L ALT (4-34) U/L Alkaline Phosphatase (38-126) U/L Ammonia (<30) umol/L Total Protein (6.3-8.2) g/dL Albumin (3.5-5.0) g/dL Triglycerides 183.00 H (0.00-149.00) mg/dL HDL Cholesterol 27.50 L (40.00-60.00) mg/dL 11/28/24 11/29/24 11/29/24 Range/Units 18:21 00:07 02:28 WBC (4.50-10.00) 10*3/uL RBC (4.10-5.20) 10*6/uL Hgb (12.0-15.0) g/dL Hct (37.2-46.3) % MPV (9.5-12.2) fL Immature Gran # (0.00-0.04) 10*3/uL Neutrophils # (1.80-7.70) 10*3/uL Monocytes # (0.20-1.00) 10*3/uL Eosinophils # (0.04-0.35) 10*3/uL ABG pCO2 (35-45) mmHg ABG pO2 (83-108) mmHg ABG HCO3 (21-25) mmol/L ABG Total CO2 (19-24) mmol/L ABG O2 Saturation (94-97) % Hemoglobin (11.4-16.0) gm/dL Sodium 133 L (137-145) mmol/L Potassium (3.5-5.1) mmol/L Chloride 111 H (98-107) mmol/L Carbon Dioxide 18 L (22-30) mmol/L BUN 20 H (7-17) mg/dL Glucose 269 H (74-99) mg/dL POC Glucose (mg/dL) 278 H 249 H (70-110) mg/dL Hemoglobin A1c (<=6.0) % Total Bilirubin 1.9 H (0.2-1.3) mg/dL AST 699 H (14-36) U/L ALT 317 H (4-34) U/L Alkaline Phosphatase 234 H (38-126) U/L Ammonia (<30) umol/L Total Protein 5.4 L (6.3-8.2) g/dL Albumin 2.3 L (3.5-5.0) g/dL Triglycerides (0.00-149.00) mg/dL HDL Cholesterol (40.00-60.00) mg/dL 11/29/24 11/29/24 11/29/24 Range/Units 04:40 04:40 04:40 WBC 23.71 H (4.50-10.00) 10*3/uL RBC 3.42 L (4.10-5.20) 10*6/uL Hgb 9.3 L (12.0-15.0) g/dL Hct 28.7 L (37.2-46.3) % MPV 12.3 H (9.5-12.2) fL Immature Gran # 0.27 H (0.00-0.04) 10*3/uL Neutrophils # 20.43 H (1.80-7.70) 10*3/uL Monocytes # 1.86 H (0.20-1.00) 10*3/uL Eosinophils # 0.00 L (0.04-0.35) 10*3/uL ABG pCO2 (35-45) mmHg ABG pO2 (83-108) mmHg ABG HCO3 (21-25) mmol/L ABG Total CO2 (19-24) mmol/L ABG O2 Saturation (94-97) % Hemoglobin (11.4-16.0) gm/dL Sodium 134 L (137-145) mmol/L Potassium 5.2 H (3.5-5.1) mmol/L Chloride 109 H (98-107) mmol/L Carbon Dioxide 15 L (22-30) mmol/L BUN 21 H (7-17) mg/dL Glucose 286 H (74-99) mg/dL POC Glucose (mg/dL) (70-110) mg/dL Hemoglobin A1c 7.0 H (<=6.0) % Total Bilirubin 2.2 H (0.2-1.3) mg/dL AST 688 H (14-36) U/L ALT 339 H (4-34) U/L Alkaline Phosphatase 260 H (38-126) U/L Ammonia (<30) umol/L Total Protein 5.6 L (6.3-8.2) g/dL Albumin 2.5 L (3.5-5.0) g/dL Triglycerides (0.00-149.00) mg/dL HDL Cholesterol (40.00-60.00) mg/dL 11/29/24 11/29/24 11/29/24 Range/Units 04:40 04:41 11:40 WBC (4.50-10.00) 10*3/uL RBC (4.10-5.20) 10*6/uL Hgb (12.0-15.0) g/dL Hct (37.2-46.3) % MPV (9.5-12.2) fL Immature Gran # (0.00-0.04) 10*3/uL Neutrophils # (1.80-7.70) 10*3/uL Monocytes # (0.20-1.00) 10*3/uL Eosinophils # (0.04-0.35) 10*3/uL ABG pCO2 31 L (35-45) mmHg ABG pO2 131 H (83-108) mmHg ABG HCO3 17 L (21-25) mmol/L ABG Total CO2 18 L (19-24) mmol/L ABG O2 Saturation 99.5 H (94-97) % Hemoglobin 9.7 L (11.4-16.0) gm/dL Sodium (137-145) mmol/L Potassium (3.5-5.1) mmol/L Chloride (98-107) mmol/L Carbon Dioxide (22-30) mmol/L BUN (7-17) mg/dL Glucose (74-99) mg/dL POC Glucose (mg/dL) 294 H 277 H (70-110) mg/dL Hemoglobin A1c (<=6.0) % Total Bilirubin (0.2-1.3) mg/dL AST (14-36) U/L ALT (4-34) U/L Alkaline Phosphatase (38-126) U/L Ammonia (<30) umol/L Total Protein (6.3-8.2) g/dL Albumin (3.5-5.0) g/dL Triglycerides (0.00-149.00) mg/dL HDL Cholesterol (40.00-60.00) mg/dL 11/29/24 Range/Units 12:40 WBC (4.50-10.00) 10*3/uL RBC (4.10-5.20) 10*6/uL Hgb (12.0-15.0) g/dL Hct (37.2-46.3) % MPV (9.5-12.2) fL Immature Gran # (0.00-0.04) 10*3/uL Neutrophils # (1.80-7.70) 10*3/uL Monocytes # (0.20-1.00) 10*3/uL Eosinophils # (0.04-0.35) 10*3/uL ABG pCO2 (35-45) mmHg ABG pO2 (83-108) mmHg ABG HCO3 (21-25) mmol/L ABG Total CO2 (19-24) mmol/L ABG O2 Saturation (94-97) % Hemoglobin (11.4-16.0) gm/dL Sodium (137-145) mmol/L Potassium (3.5-5.1) mmol/L Chloride (98-107) mmol/L Carbon Dioxide (22-30) mmol/L BUN (7-17) mg/dL Glucose (74-99) mg/dL POC Glucose (mg/dL) (70-110) mg/dL Hemoglobin A1c (<=6.0) % Total Bilirubin (0.2-1.3) mg/dL AST (14-36) U/L ALT (4-34) U/L Alkaline Phosphatase (38-126) U/L Ammonia 86 H (<30) umol/L Total Protein (6.3-8.2) g/dL Albumin (3.5-5.0) g/dL Triglycerides (0.00-149.00) mg/dL HDL Cholesterol (40.00-60.00) mg/dL Assessment and Plan Assessment: Patient is a 44-year-old woman with history of type 1 diabetes on insulin pump who presents the emergency department because of altered mental status and was unresponsive. Her sugar level was more than 600 and has abnormal electrolyte imbalance. CT of the head is unremarkable. Altered Mental status due to multifactorial metabolic encephalopathy with electrolyte imbalance as well as abnormal thyroid. CT head X2 is negative for acute process. EEG is negative for seizure or discharges. Acute hyperglycemic with hyperosmotic state Low normal folate History of diabetes mellitus Sinus tachycardia History of hypothyroidism as well as Graves' disease History of alpha 1 antitrypsin deficiency MZ disease paroxysmal atrial fibrillation History of gastroparesis Plan: For low normal folic acid, I started the patient on folic acid 1mg daily. Recommend avoid sedation or opiates for better neurological examination. Recommend better control of her sugar Recommend control of electrolyte Recommend control of her thyroid. Will defer the rest of the medical management to primary and other specialist Plan is discussed with the ICU nurse. Dr. Alaniz will resume neurology service tomorrow A.M. Time with Patient: Less than 30
[2024-11-29 17:58] LABS: Glucose,Whole Blood 252 mg/dL (70-110)
[2024-11-29] MEDS: LACTULOSE 20 GM/30 ML CUP PO SCH (18:14)
[2024-11-29 23:37] LABS: Glucose,Whole Blood 324 mg/dL (70-110)
--- NOTE | 2024-11-30 01:26 | PN ---
PROGRESS NOTE SUBJECTIVE: A 44-year-old white female, remains on the ventilator, sedated on the vent. Remains on Zosyn for her left lower lung pneumonia. She has elevated ammonia level. Lactulose has been ordered at 30 q.i.d. OBJECTIVE: VITAL SIGNS: Blood pressure of 138/56, temperature is up to 101.4 max, . CARDIOVASCULAR: S1 and S2. LUNGS: Transmitted upper airway sounds. HEMATOLOGY: Negative for Homans. Tachycardic. Remains on the vent She had a brain CT, which was unremarkable except for sinus disease; history of the liver ultrasound, that shows normal. Has been treated for left lower lobe pneumonia, autoimmune hepatitis with lactulose. She has hyperthyroidism, acute on chronic respiratory failure, left lower lobe pneumonia and DKA, severe dehydration, and metabolic encephalopathy. Remains in the ICU, bicarb is 15, and anion gap is 10. Liver enzymes are elevated. Ultrasound is negative of the liver. Ammonia is treated with lactulose. Follow along. Wean vent as tolerated. White count is elevated, secondary to pneumonia with diabetes, hyperthyroidism, paroxysmal atrial fibrillation, gastroparesis, history of alpha-1 antitrypsin, leukocytosis, secondary to pneumonia. Continue treatment as mentioned above. Prognosis is guarded. MMODL / IJN: [id number] /
[2024-11-30 01:37] LABS: Glucose,Whole Blood 248 mg/dL (70-110)
[2024-11-30] MEDS: SODIUM CHLORIDE 0.9% 1,000 ML IV ONE (01:37)
[2024-11-30] MEDS: atenoloL 50 MG TAB PO SCH (01:50)
[2024-11-30] MEDS: fentaNYL (PF). 1,000 MCG in SODIUM CHLORIDE 0.9% 80 ML IV SCH (01:50)
[2024-11-30] MEDS: ACETAMINOPHEN TAB 325 MG TAB PO PRN (01:51)
[2024-11-30 04:34] LABS: Basophils # (A) 0.03 10*3/uL (0.00-0.10); Basophils % (A) 0.1 %; HCT 30.4 % (37.2-46.3); HGB 9.4 g/dL (12.0-15.0); Lymphocytes # (A) 0.44 10*3/uL (0.90-5.00); Lymphocytes % (A) 2.2 %; MCH 27.7 pg (27.0-32.0); MCHC 30.9 g/dL (32.0-37.0); Mean Platelet Volume 12.1 fL (9.5-12.2); Monocytes # (A) 1.62 10*3/uL (0.20-1.00); Monocytes % (A) 8.1 %; Neutrophils # (A) 17.67 10*3/uL (1.80-7.70); Neutrophils % (A) 88.3 %; Platelet Count 194 10*3/uL (140-440); RBC 3.39 10*6/uL (4.10-5.20); RDW 16.3 % (11.5-14.5); WBC 20.02 10*3/uL (4.50-10.00)
[2024-11-30 04:36] LABS: ABG Base Excess -16.4 mmol/L; ABG Oxygen Saturation 98.4 % (94-97); ABG PCO2 26 mmHg (35-45); ABG PH 7.21 (7.35-7.45); ABG PO2 114 mmHg (83-108); ABG TCO2 11 mmol/L (19-24)
[2024-11-30 04:45] LABS: MCV 89.7 fL (80.0-97.0)
[2024-11-30 05:04] LABS: African American GFR (CKD) 61 (>60 ml/min/1.73 sqM); Albumin 2.3 g/dL (3.5-5.0); Alkaline Phosphatase 244 U/L (38-126); Anion Gap 17 mmol/L; Blood Urea Nitrogen 23 mg/dL (7-17); Calcium 8.7 mg/dL (8.4-10.2); Chloride 120 mmol/L (98-107); Glucose 201 mg/dL (74-99); Magnesium 2.1 mg/dL (1.6-2.3); Non-African American GFR(CKD) 53 (>60 ml/min/1.73 sqM); Potassium 4.4 mmol/L (3.5-5.1); Sodium 144 mmol/L (137-145); Total Bilirubin 3.1 mg/dL (0.2-1.3); Total Protein 5.2 g/dL (6.3-8.2)
[2024-11-30 05:18] LABS: ABG HCO3 10 mmol/L (21-25); Allen Test Performed? no
[2024-11-30 05:24] LABS: ALT 471 U/L (4-34); AST 990 U/L (14-36); Carbon Dioxide 7 mmol/L (22-30)
[2024-11-30] MEDS: SODIUM BICARB 8.4% 50 ML SYR (1 MEQ/ML) IV STA (05:34)
[2024-11-30 05:58] LABS: Glucose,Whole Blood 219 mg/dL (70-110)
[2024-11-30] MEDS: INSULIN REGULAR 100 UNIT in SODIUM CHLORIDE 0.9% 100 ML IV SCH (05:59)
[2024-11-30] MEDS: DEXTROSE 5% IN WATER 1,000 ML with SODIUM BICARB (1 MEQ/ML) 150 ML IV SCH (06:01)
[2024-11-30 06:59] LABS: Glucose,Whole Blood 261 mg/dL (70-110)
--- NOTE | 2024-11-30 08:05 | XR ---
EXAMINATION TYPE: XR chest 1V portable DATE OF EXAM: 11/30/2024 7:37 AM COMPARISON: 11/29/2024 CLINICAL INDICATION: Female, 44 years old with history of acute renal failure, difficulty breathing TECHNIQUE: XR chest 1V portable view(s) obtained. FINDINGS: The heart size is normal. The pulmonary vasculature is normal. There may be a left lower lobe infiltrate. Endotracheal tube is 6.4 cm above the mae. Nasogastric tube tip is within the left upper quadrant of the abdomen. IMPRESSION: 1. Left lower lobe infiltrate. Correlate for atelectasis or pneumonia. 2. Lines and catheters discussed above [facility], , 11/30/2024 8:03 AM
[2024-11-30 08:15] LABS: Glucose,Whole Blood 250 mg/dL (70-110)
[2024-11-30 09:29] LABS: Glucose,Whole Blood 243 mg/dL (70-110)
[2024-11-30] MEDS: RIFAXIMIN 550 MG TABLET PO SCH (09:42)
[2024-11-30] MEDS: LACTULOSE 20 GM/30 ML CUP PO SCH (09:42)
[2024-11-30 09:46] LABS: ABG Base Excess -6.4 mmol/L; ABG HCO3 18 mmol/L (21-25); ABG Oxygen Saturation 99.7 % (94-97); ABG PCO2 32 mmHg (35-45); ABG PH 7.37 (7.35-7.45); ABG PO2 132 mmHg (83-108); ABG TCO2 19 mmol/L (19-24)
--- NOTE | 2024-11-30 09:46 | P.PN ---
Subjective Progress Note Date: 11/30/24 PROGRESS NOTE The patient is a 44-year-old female with known history of paroxysmal atrial fibrillation, diabetes mellitus, prior history of DKA who was brought into the hospital with symptoms of unresponsiveness, severe hyperglycemia acidosis. Because of her mental status she was intubated. She was tachycardic, reported to be SVT although the EKG available to me shows atrial flutter with 2-1 conduction. She underwent cardioversion by the EMS and subsequently in the ER and is in sinus mechanism at this time. She was on IV Cardizem that was stopped because of bradycardia. She remains intubated. Her urine output is good. She had a prior history of similar presentation with DKA. The echocardiogram available from 2020 showed a preserved systolic function with mild aortic stenosis and moderate mitral regurgitation. She has been followed by Dr. Santoro and has been anticoagulated as an outpatient because of her paroxysmal atrial fibrillation. Her CT scan of the chest showed left lower lobe infiltrate with enlarged thyroid gland. Her brain CT shows no acute bleed. Her chest x- ray shows the infiltrate. On presentation her blood sugar was 640, plasma lactic acid 19.9. Her troponin was 0.057. This morning her carbon dioxide is 14 and her pH 7.32. November 29: The patient remains intubated, moving her extremities but not following command. She continues to be in atrial fibrillation with controlled ventricular response. Her urinary output has been good. Her blood sugar is under better control. She underwent an echocardiogram that showed an ejection fraction of 55 to 60% with a mean gradient of 25 mmHg across the aortic valve and mild to moderate mitral stenosis with severe pulmonary hypertension, estimated at 60 mmHg. She has been in and out of atrial fibrillation. November 30: The patient had episodes of tachycardia yesterday, probable atrial flutter. She was hypotensive, better at this time. She is in atrial fibrillation with controlled ventricular response. She continues to be intubated and sedated. There is no evidence of ventricular ectopic activity. Her urine output has been good. She continues to be on vasopressors. Her dose of beta-osbaldo was increased. Medications: Atenolol 50 mg twice a day, folic acid, insulin, methimazole, Xarelto 20 mg daily PHYSICAL EXAMINATION: Blood pressure 110/50 heart rate 95, intubated, moving extremities LUNGS: Clear to auscultation HEART: Irregular rate and rhythm, S1, S2. No S3. Systolic ejection murmur ABDOMEN: Soft, no organomegaly EXTREMETIES: No edema LAB: Hemoglobin 9.4, WBC 20.02, BUN 23, creatinine 1.24. AST 990, ALT 410. Blood sugar 201. pH 7.21. IMPRESSION: 1. Hyperglycemia with hyperosmolar state, improving 2. Paroxysmal atrial fibrillation, anticoagulated, rate controlled had episode of tachycardia yesterday, improving at this time 3. Metabolic encephalopathy 4. History of hypothyroidism 5. Alpha 1 antitrypsin 6. Mild to moderate aortic stenosis is severe pulmonary hypertension PLAN: 1. Increase beta-osbaldo as done to 50 mg twice a day 2. Wean as tolerated 3. Follow renal functions 4. Will need to have reevaluation of for pulmonary pressure after extubation, may require a KWAN after recovery to further evaluate her valvular structures 5. Depending on her progress further recommendations will be made, prognosis is guarded Objective - Vital Signs Vital signs: Vital Signs Temp 100.9 F H 11/30/24 06:00 Pulse 110 H 11/30/24 07:35 Resp 70 H 11/30/24 07:30 BP 110/55 11/30/24 07:30 Pulse Ox 98 11/30/24 07:30 FiO2 30 11/30/24 07:23 Intake & Output 11/29/24 11/30/24 11/30/24 18:59 06:59 18:59 Intake Total 2291.925 2741.950 169.906 Output Total 805 1005 Balance 4073.617 3971.950 169.906 Weight 71.6 kg 75.6 kg Intake: IV 233 289 0.9 ART LINE PRESSURE BAG 33 39 D5-0.45% NaCl with KCl 100 20Meq/l 1,000 ml @ 50 mls /hr IV .Q20H [facility] Rx#: [id number] Dextrose 5% in Water 1, 200 000 ml @ 100 mls/hr IV . [id number] [facility] with Sodium Bicarb (1 Meq/ml) 150 ml Rx#:[id number] Piperacillin-Tazobactam 3 100 50 .375 gm In Sodium Chloride 0.9% 100 ml @ 25 mls/hr IVPB Q8H [facility] Rx#: [id number] Intake, IV Titration 8775.072 0787.950 169.906 Amount Dexmedetomidine/0.9% NaCl 2.892 (Pmx) 400 mcg In Empty Bag 1 bag @ 0.2 MCG/KG/HR 3.615 mls/hr IV .Q24H [facility] Rx#:[id number] Norepinephrine 4 mg In 58.925 50.058 169.906 Sodium Chloride 0.9% 250 ml @ 0.03 MCG/KG/MIN 8. 184 mls/hr IV .Q24H [facility] Rx#:[id number] Sodium Chloride 0.9% 1, 800 1150 000 ml @ 100 mls/hr IV . Q10H [facility] Rx#:[id number] Sodium Chloride 0.9% 1, 1000 000 ml @ 999 mls/hr IV . Q1H1M [facility] Rx#:[id number] Sodium Chloride 0.9% 1, 1000 000 ml @ 999 mls/hr IV . Q1H1M [facility] Rx#:[id number] Tube Feeding 50 250 Other 150 Output: Urine 805 1005 Other: Voiding Method Indwelling Catheter Indwelling Catheter ABP, PAP, CO, CI - Last Documented Arterial Blood Pressure 106/46 - Labs CBC & Chem 7: 11/30/24 03:45 11/30/24 03:45 Labs: Abnormal Lab Results - Last 24 Hours (Table) 11/29/24 11/29/24 11/29/24 Range/Units 11:40 12:40 17:56 WBC (4.50-10.00) 10*3/uL RBC (4.10-5.20) 10*6/uL Hgb (12.0-15.0) g/dL Hct (37.2-46.3) % MCHC (32.0-37.0) g/dL Immature Gran # (0.00-0.04) 10*3/uL Neutrophils # (1.80-7.70) 10*3/uL Lymphocytes # (0.90-5.00) 10*3/uL Monocytes # (0.20-1.00) 10*3/uL Eosinophils # (0.04-0.35) 10*3/uL ABG pH (7.35-7.45) ABG pCO2 (35-45) mmHg ABG pO2 (83-108) mmHg ABG HCO3 (21-25) mmol/L ABG Total CO2 (19-24) mmol/L ABG O2 Saturation (94-97) % Hemoglobin (11.4-16.0) gm/dL Chloride (98-107) mmol/L Carbon Dioxide (22-30) mmol/L BUN (7-17) mg/dL Creatinine (0.52-1.04) mg/dL Glucose (74-99) mg/dL POC Glucose (mg/dL) 277 H 252 H (70-110) mg/dL Total Bilirubin (0.2-1.3) mg/dL AST (14-36) U/L ALT (4-34) U/L Alkaline Phosphatase (38-126) U/L Ammonia 86 H (<30) umol/L Total Protein (6.3-8.2) g/dL Albumin (3.5-5.0) g/dL 11/29/24 11/30/24 11/30/24 Range/Units 23:36 01:36 03:45 WBC (4.50-10.00) 10*3/uL RBC (4.10-5.20) 10*6/uL Hgb (12.0-15.0) g/dL Hct (37.2-46.3) % MCHC (32.0-37.0) g/dL Immature Gran # (0.00-0.04) 10*3/uL Neutrophils # (1.80-7.70) 10*3/uL Lymphocytes # (0.90-5.00) 10*3/uL Monocytes # (0.20-1.00) 10*3/uL Eosinophils # (0.04-0.35) 10*3/uL ABG pH (7.35-7.45) ABG pCO2 (35-45) mmHg ABG pO2 (83-108) mmHg ABG HCO3 (21-25) mmol/L ABG Total CO2 (19-24) mmol/L ABG O2 Saturation (94-97) % Hemoglobin (11.4-16.0) gm/dL Chloride (98-107) mmol/L Carbon Dioxide (22-30) mmol/L BUN (7-17) mg/dL Creatinine (0.52-1.04) mg/dL Glucose (74-99) mg/dL POC Glucose (mg/dL) 324 H 248 H (70-110) mg/dL Total Bilirubin (0.2-1.3) mg/dL AST (14-36) U/L ALT (4-34) U/L Alkaline Phosphatase (38-126) U/L Ammonia 146 H (<30) umol/L Total Protein (6.3-8.2) g/dL Albumin (3.5-5.0) g/dL 11/30/24 11/30/24 11/30/24 Range/Units 03:45 03:45 04:33 WBC 20.02 H (4.50-10.00) 10*3/uL RBC 3.39 L (4.10-5.20) 10*6/uL Hgb 9.4 L (12.0-15.0) g/dL Hct 30.4 L (37.2-46.3) % MCHC 30.9 L (32.0-37.0) g/dL Immature Gran # 0.26 H (0.00-0.04) 10*3/uL Neutrophils # 17.67 H (1.80-7.70) 10*3/uL Lymphocytes # 0.44 L (0.90-5.00) 10*3/uL Monocytes # 1.62 H (0.20-1.00) 10*3/uL Eosinophils # 0.00 L (0.04-0.35) 10*3/uL ABG pH 7.21 L (7.35-7.45) ABG pCO2 26 L (35-45) mmHg ABG pO2 114 H (83-108) mmHg ABG HCO3 10 L* (21-25) mmol/L ABG Total CO2 11 L (19-24) mmol/L ABG O2 Saturation 98.4 H (94-97) % Hemoglobin 9.0 L (11.4-16.0) gm/dL Chloride 120 H (98-107) mmol/L Carbon Dioxide 7 L* (22-30) mmol/L BUN 23 H (7-17) mg/dL Creatinine 1.24 H (0.52-1.04) mg/dL Glucose 201 H (74-99) mg/dL POC Glucose (mg/dL) (70-110) mg/dL Total Bilirubin 3.1 H (0.2-1.3) mg/dL AST 990 H (14-36) U/L ALT 471 H (4-34) U/L Alkaline Phosphatase 244 H (38-126) U/L Ammonia (<30) umol/L Total Protein 5.2 L (6.3-8.2) g/dL Albumin 2.3 L (3.5-5.0) g/dL 11/30/24 11/30/24 11/30/24 Range/Units 05:57 06:58 08:12 WBC (4.50-10.00) 10*3/uL RBC (4.10-5.20) 10*6/uL Hgb (12.0-15.0) g/dL Hct (37.2-46.3) % MCHC (32.0-37.0) g/dL Immature Gran # (0.00-0.04) 10*3/uL Neutrophils # (1.80-7.70) 10*3/uL Lymphocytes # (0.90-5.00) 10*3/uL Monocytes # (0.20-1.00) 10*3/uL Eosinophils # (0.04-0.35) 10*3/uL ABG pH (7.35-7.45) ABG pCO2 (35-45) mmHg ABG pO2 (83-108) mmHg ABG HCO3 (21-25) mmol/L ABG Total CO2 (19-24) mmol/L ABG O2 Saturation (94-97) % Hemoglobin (11.4-16.0) gm/dL Chloride (98-107) mmol/L Carbon Dioxide (22-30) mmol/L BUN (7-17) mg/dL Creatinine (0.52-1.04) mg/dL Glucose (74-99) mg/dL POC Glucose (mg/dL) 219 H 261 H 250 H (70-110) mg/dL Total Bilirubin (0.2-1.3) mg/dL AST (14-36) U/L ALT (4-34) U/L Alkaline Phosphatase (38-126) U/L Ammonia (<30) umol/L Total Protein (6.3-8.2) g/dL Albumin (3.5-5.0) g/dL 11/30/24 Range/Units 09:27 WBC (4.50-10.00) 10*3/uL RBC (4.10-5.20) 10*6/uL Hgb (12.0-15.0) g/dL Hct (37.2-46.3) % MCHC (32.0-37.0) g/dL Immature Gran # (0.00-0.04) 10*3/uL Neutrophils # (1.80-7.70) 10*3/uL Lymphocytes # (0.90-5.00) 10*3/uL Monocytes # (0.20-1.00) 10*3/uL Eosinophils # (0.04-0.35) 10*3/uL ABG pH (7.35-7.45) ABG pCO2 (35-45) mmHg ABG pO2 (83-108) mmHg ABG HCO3 (21-25) mmol/L ABG Total CO2 (19-24) mmol/L ABG O2 Saturation (94-97) % Hemoglobin (11.4-16.0) gm/dL Chloride (98-107) mmol/L Carbon Dioxide (22-30) mmol/L BUN (7-17) mg/dL Creatinine (0.52-1.04) mg/dL Glucose (74-99) mg/dL POC Glucose (mg/dL) 243 H (70-110) mg/dL Total Bilirubin (0.2-1.3) mg/dL AST (14-36) U/L ALT (4-34) U/L Alkaline Phosphatase (38-126) U/L Ammonia (<30) umol/L Total Protein (6.3-8.2) g/dL Albumin (3.5-5.0) g/dL Microbiology - Last 24 Hours (Table) 11/28/24 19:34 Blood Culture - Preliminary Blood 11/29/24 08:45 Gram Stain - Preliminary Sputum
[2024-11-30 09:58] LABS: Glucose,Whole Blood 223 mg/dL (70-110)
[2024-11-30 10:01] LABS: Allen Test Performed? No
[2024-11-30 10:29] LABS: Hepatitis A Antibody IgM Nonreactive (Nonreactive); Hepatitis B Core IgM Nonreactive (Nonreactive); Hepatitis B Surface Antigen Nonreactive (Nonreactive); Hepatitis C IgG Antibody Nonreactive (Nonreactive)
[2024-11-30 11:04] LABS: Glucose,Whole Blood 217 mg/dL (70-110)
--- NOTE | 2024-11-30 11:30 | OP ---
OPERATIVE REPORT DATE OF SERVICE : PROCEDURE PERFORMED: Placement of a right femoral triple-lumen catheter. PREOPERATIVE DIAGNOSIS: Acute hypoxic respiratory failure, acute hyperosmolar state with hyperglycemia. POSTOPERATIVE DIAGNOSIS: Acute hypoxic respiratory failure, acute hyperosmolar state with hyperglycemia. ANESTHESIA: 2 mL of 1% lidocaine. DESCRIPTION OF PROCEDURE: The patient was placed in the supine position, the area in the right groin was prepared in a sterile fashion. Drapes were applied. Prior to this, the right femoral vein was localized by using ultrasound, and the right femoral vein was cannulated, a guidewire was placed, an area around the guidewire was dilated, and a triple-lumen catheter was inserted over the guidewire, and the guidewire was removed. Good blood flow noted in the 3 different ports of the triple-lumen catheter, no complications. Line was secured using 3-0 silk sutures. [id number] / IJN: [id number] /
--- NOTE | 2024-11-30 11:34 | P.PN ---
Subjective Progress Note Date: 11/30/24 Principal diagnosis: Acute hyperglycemia with hyperosmolar state and acute metabolic encephalopathy with acute hypoxic respiratory failure requiring intubation mechanical ventilati on. This is a 44-year-old female with known history of diabetes, patient had previous episode of DKA back in June of 2024, and she was seen by Dr. Gonzalez on consultation at the time. This time the patient seems to have a similar presentation she was brought into the ER with altered mental status, patient was unresponsive at home, and she was seen by EMS with what seems to be a picture of SVT. Patient did not respond to cardioversion by EMS. Heart rate rate was in the 200 range, patient was brought into the ER, and as soon as she arrived the patient was noted to be in distress, intubated and mechanically ventilated by the ER physician. Workup in the ER included venous blood gas s howing a bicarb of 8 and a pH of 6.92, she had blood sugar as high as 600+, lactic acid was as high as 19.9, urinalysis showed no evidence of ketones in the urine. CT of the brain showed no evidence of acute disease except for mild inflammatory changes in the left maxillary sinus and it also showed mild to moderate generalized atrophy. Chest x-ray showed endotracheal tube to be low- lying seems to be at the level just above the mae apparently this was adjusted already by the ER physician based on her initial chest x-ray. Could not obtain any history from the patient as she seems to be obtunded and unresponsive to any stimuli. Has recommended treatment as per DKA protocol, I also recommended CT of the brain to be done which came back nondiagnostic. In the meantime the patient is receiving fluid boluses so far she has received 2- 1/2 L of 0.9 normal saline and I recommended starting the patient on insulin drip. Patient was seen today on 11/28/2024, patient remains in the ICU, we admitted the patient yesterday from the ER. Remains intubated and mechanically ventilated, on assist-control rate 16 tidal volume 450 FiO2 30% and PEEP of 5 ABG showed a pO2 of 191 pCO2 32 pH of 7.32. Patient is on multiple drips including insulin drip at 2.95 units/h propofol at 50 mcg/kg/min Versed at 3 mg/h D5W at 120 cc/h. Patient is sedated, unable to assess mental status, however I plan to hold sedation today, address mental status off sedation, and if the patient continues to do well may check weaning parameters for possible extubation today if the patient does well from the neurological perspective. Her labs today showed leukocytosis with WBC of 19.67 hemoglobin 9.1. Liver enzymes are elevated. Her electrolytes are normal bicarb is 17 anion gap is resolved. Renal profile is no rmal. Patient was seen today on 11/29/2024, remains in the ICU, intubated and mechanically ventilated, on assist-control rate of 16 tidal volume 450 FiO2 30% and PEEP of 5 ABG showed a pO2 of 131 pCO2 31 pH of 7.35. Patient is now receiving IV fluid D5 4 5 at 50 cc/h and I changed that to 0.9 normal saline at 100 cc/h. Patient remains encephalopathic, hence I recommended a repeat CT of the head to be done today, neurology is on board. Repeat CT of the brain showed no acute intracranial process, chest x-ray today showed no acute cardiopulmonary disease. Patient does have leukocytosis with WBC count of 23.7 hemoglobin 9.3, basic metabolic profile showed potassium of 5.2 bicarb remains low at 15 anion gap is 10. Liver enzymes remain elevated with total bilirubin of 2.2 AST 688 ALT 339 alkaline phosphatase 260. Will recommend ultrasound of the liver to be done today. Will also order ammonia level as the patient seems to be quite encephalopathic. Patient was evaluated today on 11/30/2024, remains in the ICU, intubated and mechanically ventilated, patient had significant guillermo clinical course over the last 24 hours, patient developed worsening metabolic acidosis requiring bicarb d rip, she developed hypotension requiring norepinephrine which is presently at 0.15 mg/kg/min hyperglycemia requiring going back on insulin at 7.6 units/h patient required going on sodium bicarb 3 A in 1 L of D5W running at 100 cc/h she required more sedation in addition to her propofol now she is on fentanyl 0.5 mcg/kg/h patient required Tylenol for fever and she had cooling blankets applied last night. Placed on antibiotics, cultures are pending. In addition I am planning to hold her Tapazole as her hepatic panel seems to be getting worse, patient was placed on a higher dose of beta-osbaldo for atrial fibrillation/flutter with rapid ventricular response, ventilator settings were adjusted she is now on assist-control rate of 16 tidal volume 450 FiO2 30% PEEP of 5 ABG showed a pO2 of 114 pCO2 26 pH of 7.21 her flow rate increased to 65. Chest x-ray showed left lower lobe atelectasis, doubt pneumonia. However the patient is empirically on antibiotics considering her fever. Repeat ABG today after ventilator adjustments and after bicarb drip showed a pO2 of 132 pCO2 32 pH of 7.37, WBC count is 20.0 hemoglobin 9.4 platelets are 194, bicarb earlier was 7 with anion gap of 17 BUN 23 creatinine 1.24. Liver enzymes are rising her AST is up to 990 ALT is 471 alkaline phosphatase is 244, ammonia level is higher today from 86 went up as high as 146. Remains on lactulose and rifaximin was added. Objective - Vital Signs Vital signs: Vital Signs Temp 101.3 F H 11/30/24 08:00 Pulse 96 11/30/24 11:19 Resp 24 11/30/24 10:15 BP 110/55 11/30/24 07:30 Pulse Ox 97 11/30/24 10:15 FiO2 30 11/30/24 11:19 Intake & Output 11/29/24 11/30/24 11/30/24 18:59 06:59 18:59 Intake Total 2291.925 2741.950 725.492 Output Total 805 1005 250 Balance 7560.043 6714.950 475.492 Weight 71.6 kg 75.6 kg Intake: IV 233 289 384 0.9 ART LINE PRESSURE BAG 33 39 9 D5-0.45% NaCl with KCl 100 20Meq/l 1,000 ml @ 50 mls /hr IV .Q20H [facility] Rx#: [id number] Dextrose 5% in Water 1, 200 300 000 ml @ 100 mls/hr IV . [id number] [facility] with Sodium Bicarb (1 Meq/ml) 150 ml Rx#:[id number] Piperacillin-Tazobactam 3 100 50 .375 gm In Sodium Chloride 0.9% 100 ml @ 25 mls/hr IVPB Q8H [facility] Rx#: [id number] Sodium Chloride 0.9% 1, 75 000 ml @ 25 mls/hr IV . Q24H [facility] Rx#:[id number] Intake, IV Titration 9648.517 8206.950 221.492 Amount Dexmedetomidine/0.9% NaCl 2.892 (Pmx) 400 mcg In Empty Bag 1 bag @ 0.2 MCG/KG/HR 3.615 mls/hr IV .Q24H [facility] Rx#:[id number] Norepinephrine 4 mg In 58.925 50.058 221.492 Sodium Chloride 0.9% 250 ml @ 0.03 MCG/KG/MIN 8. 184 mls/hr IV .Q24H [facility] Rx#:[id number] Sodium Chloride 0.9% 1, 800 1150 000 ml @ 25 mls/hr IV . Q24H [facility] Rx#:[id number] Sodium Chloride 0.9% 1, 1000 000 ml @ 999 mls/hr IV . Q1H1M [facility] Rx#:[id number] Sodium Chloride 0.9% 1, 1000 000 ml @ 999 mls/hr IV . Q1H1M [facility] Rx#:[id number] Tube Feeding 50 250 90 Other 150 30 Output: Urine 805 1005 250 Other: Voiding Method Indwelling Catheter Indwelling Catheter ABP, PAP, CO, CI - Last Documented Arterial Blood Pressure 140/44 - Exam General: Revealed a 44-year-old female intubated mechanically ventilated, Derm: warm, dry, intact Head: atraumatic, normocephalic, symmetric, endotracheal tube is intact. Orogastric tube and endotracheal tube are intact Eyes: EOMI, anicteric sclera Mouth: no lip lesion, dry mucus membranes Cardiovascular: Tachycardic, irregular rhythm, no S3 gallop. Lungs: Diminished breath sound bilaterally no rhonchi no wheezes Abdominal: soft, diffuse nonspecific tenderness to palpataion, no appreciable organomegaly Extremities: No clubbing edema or cyanosis Neuro: Could not assess, fully sedated on propofol and on fentanyl. Psych: Could not assess - Labs CBC & Chem 7: 11/30/24 03:45 11/30/24 03:45 Labs: Abnormal Lab Results - Last 24 Hours (Table) 11/29/24 11/29/24 11/29/24 Range/Units 11:40 12:40 17:56 WBC (4.50-10.00) 10*3/uL RBC (4.10-5.20) 10*6/uL Hgb (12.0-15.0) g/dL Hct (37.2-46.3) % MCHC (32.0-37.0) g/dL Immature Gran # (0.00-0.04) 10*3/uL Neutrophils # (1.80-7.70) 10*3/uL Lymphocytes # (0.90-5.00) 10*3/uL Monocytes # (0.20-1.00) 10*3/uL Eosinophils # (0.04-0.35) 10*3/uL ABG pH (7.35-7.45) ABG pCO2 (35-45) mmHg ABG pO2 (83-108) mmHg ABG HCO3 (21-25) mmol/L ABG Total CO2 (19-24) mmol/L ABG O2 Saturation (94-97) % Hemoglobin (11.4-16.0) gm/dL Chloride (98-107) mmol/L Carbon Dioxide (22-30) mmol/L BUN (7-17) mg/dL Creatinine (0.52-1.04) mg/dL Glucose (74-99) mg/dL POC Glucose (mg/dL) 277 H 252 H (70-110) mg/dL Total Bilirubin (0.2-1.3) mg/dL AST (14-36) U/L ALT (4-34) U/L Alkaline Phosphatase (38-126) U/L Ammonia 86 H (<30) umol/L Total Protein (6.3-8.2) g/dL Albumin (3.5-5.0) g/dL Cortisol (3.1-22.4) UG/DL 11/29/24 11/30/24 11/30/24 Range/Units 23:36 01:36 03:45 WBC (4.50-10.00) 10*3/uL RBC (4.10-5.20) 10*6/uL Hgb (12.0-15.0) g/dL Hct (37.2-46.3) % MCHC (32.0-37.0) g/dL Immature Gran # (0.00-0.04) 10*3/uL Neutrophils # (1.80-7.70) 10*3/uL Lymphocytes # (0.90-5.00) 10*3/uL Monocytes # (0.20-1.00) 10*3/uL Eosinophils # (0.04-0.35) 10*3/uL ABG pH (7.35-7.45) ABG pCO2 (35-45) mmHg ABG pO2 (83-108) mmHg ABG HCO3 (21-25) mmol/L ABG Total CO2 (19-24) mmol/L ABG O2 Saturation (94-97) % Hemoglobin (11.4-16.0) gm/dL Chloride (98-107) mmol/L Carbon Dioxide (22-30) mmol/L BUN (7-17) mg/dL Creatinine (0.52-1.04) mg/dL Glucose (74-99) mg/dL POC Glucose (mg/dL) 324 H 248 H (70-110) mg/dL Total Bilirubin (0.2-1.3) mg/dL AST (14-36) U/L ALT (4-34) U/L Alkaline Phosphatase (38-126) U/L Ammonia 146 H (<30) umol/L Total Protein (6.3-8.2) g/dL Albumin (3.5-5.0) g/dL Cortisol (3.1-22.4) UG/DL 11/30/24 11/30/24 11/30/24 Range/Units 03:45 03:45 03:45 WBC 20.02 H (4.50-10.00) 10*3/uL RBC 3.39 L (4.10-5.20) 10*6/uL Hgb 9.4 L (12.0-15.0) g/dL Hct 30.4 L (37.2-46.3) % MCHC 30.9 L (32.0-37.0) g/dL Immature Gran # 0.26 H (0.00-0.04) 10*3/uL Neutrophils # 17.67 H (1.80-7.70) 10*3/uL Lymphocytes # 0.44 L (0.90-5.00) 10*3/uL Monocytes # 1.62 H (0.20-1.00) 10*3/uL Eosinophils # 0.00 L (0.04-0.35) 10*3/uL ABG pH (7.35-7.45) ABG pCO2 (35-45) mmHg ABG pO2 (83-108) mmHg ABG HCO3 (21-25) mmol/L ABG Total CO2 (19-24) mmol/L ABG O2 Saturation (94-97) % Hemoglobin (11.4-16.0) gm/dL Chloride 120 H (98-107) mmol/L Carbon Dioxide 7 L* (22-30) mmol/L BUN 23 H (7-17) mg/dL Creatinine 1.24 H (0.52-1.04) mg/dL Glucose 201 H (74-99) mg/dL POC Glucose (mg/dL) (70-110) mg/dL Total Bilirubin 3.1 H (0.2-1.3) mg/dL AST 990 H (14-36) U/L ALT 471 H (4-34) U/L Alkaline Phosphatase 244 H (38-126) U/L Ammonia (<30) umol/L Total Protein 5.2 L (6.3-8.2) g/dL Albumin 2.3 L (3.5-5.0) g/dL Cortisol 37.7 H (3.1-22.4) UG/DL 11/30/24 11/30/24 11/30/24 Range/Units 04:33 05:57 06:58 WBC (4.50-10.00) 10*3/uL RBC (4.10-5.20) 10*6/uL Hgb (12.0-15.0) g/dL Hct (37.2-46.3) % MCHC (32.0-37.0) g/dL Immature Gran # (0.00-0.04) 10*3/uL Neutrophils # (1.80-7.70) 10*3/uL Lymphocytes # (0.90-5.00) 10*3/uL Monocytes # (0.20-1.00) 10*3/uL Eosinophils # (0.04-0.35) 10*3/uL ABG pH 7.21 L (7.35-7.45) ABG pCO2 26 L (35-45) mmHg ABG pO2 114 H (83-108) mmHg ABG HCO3 10 L* (21-25) mmol/L ABG Total CO2 11 L (19-24) mmol/L ABG O2 Saturation 98.4 H (94-97) % Hemoglobin 9.0 L (11.4-16.0) gm/dL Chloride (98-107) mmol/L Carbon Dioxide (22-30) mmol/L BUN (7-17) mg/dL Creatinine (0.52-1.04) mg/dL Glucose (74-99) mg/dL POC Glucose (mg/dL) 219 H 261 H (70-110) mg/dL Total Bilirubin (0.2-1.3) mg/dL AST (14-36) U/L ALT (4-34) U/L Alkaline Phosphatase (38-126) U/L Ammonia (<30) umol/L Total Protein (6.3-8.2) g/dL Albumin (3.5-5.0) g/dL Cortisol (3.1-22.4) UG/DL 11/30/24 11/30/24 11/30/24 Range/Units 08:12 09:27 09:43 WBC (4.50-10.00) 10*3/uL RBC (4.10-5.20) 10*6/uL Hgb (12.0-15.0) g/dL Hct (37.2-46.3) % MCHC (32.0-37.0) g/dL Immature Gran # (0.00-0.04) 10*3/uL Neutrophils # (1.80-7.70) 10*3/uL Lymphocytes # (0.90-5.00) 10*3/uL Monocytes # (0.20-1.00) 10*3/uL Eosinophils # (0.04-0.35) 10*3/uL ABG pH (7.35-7.45) ABG pCO2 32 L (35-45) mmHg ABG pO2 132 H (83-108) mmHg ABG HCO3 18 L (21-25) mmol/L ABG Total CO2 (19-24) mmol/L ABG O2 Saturation 99.7 H (94-97) % Hemoglobin 8.7 L (11.4-16.0) gm/dL Chloride (98-107) mmol/L Carbon Dioxide (22-30) mmol/L BUN (7-17) mg/dL Creatinine (0.52-1.04) mg/dL Glucose (74-99) mg/dL POC Glucose (mg/dL) 250 H 243 H (70-110) mg/dL Total Bilirubin (0.2-1.3) mg/dL AST (14-36) U/L ALT (4-34) U/L Alkaline Phosphatase (38-126) U/L Ammonia (<30) umol/L Total Protein (6.3-8.2) g/dL Albumin (3.5-5.0) g/dL Cortisol (3.1-22.4) UG/DL 11/30/24 11/30/24 Range/Units 09:56 11:02 WBC (4.50-10.00) 10*3/uL RBC (4.10-5.20) 10*6/uL Hgb (12.0-15.0) g/dL Hct (37.2-46.3) % MCHC (32.0-37.0) g/dL Immature Gran # (0.00-0.04) 10*3/uL Neutrophils # (1.80-7.70) 10*3/uL Lymphocytes # (0.90-5.00) 10*3/uL Monocytes # (0.20-1.00) 10*3/uL Eosinophils # (0.04-0.35) 10*3/uL ABG pH (7.35-7.45) ABG pCO2 (35-45) mmHg ABG pO2 (83-108) mmHg ABG HCO3 (21-25) mmol/L ABG Total CO2 (19-24) mmol/L ABG O2 Saturation (94-97) % Hemoglobin (11.4-16.0) gm/dL Chloride (98-107) mmol/L Carbon Dioxide (22-30) mmol/L BUN (7-17) mg/dL Creatinine (0.52-1.04) mg/dL Glucose (74-99) mg/dL POC Glucose (mg/dL) 223 H 217 H (70-110) mg/dL Total Bilirubin (0.2-1.3) mg/dL AST (14-36) U/L ALT (4-34) U/L Alkaline Phosphatase (38-126) U/L Ammonia (<30) umol/L Total Protein (6.3-8.2) g/dL Albumin (3.5-5.0) g/dL Cortisol (3.1-22.4) UG/DL Microbiology - Last 24 Hours (Table) 11/28/24 19:34 Blood Culture - Preliminary Blood 11/29/24 08:45 Gram Stain - Preliminary Sputum Assessment and Plan Assessment: Impression: Acute hypoxic respiratory failure secondary to hyperosmolar state and hyperglycemia with acute metabolic encephalopathy Acute hyperglycemia with hyper osmolar state Acute metabolic encephalopathy secondary to above Acute hepatic encephalopathy with elevated ammonia level Acute metabolic acidosis/lactic acidosis secondary to above History of mild to moderate aortic stenosis History of diabetes Sinus tachycardia Severe dehydration, on her initial presentation. History of hyperthyroidism on Tapazole, history of Graves' disease, TSH is low, free T4 is slightly elevated, patient is on Tapazole Paroxysmal atrial fibrillation History of alpha 1 antitrypsin deficiency MZ disease, should not be severe enough to cause that much of abnormal liver enzymes. History of gastroparesis Recommendation: Continue to monitor in ICU All labs and ABG reviewed today, Vent setting changes were made, Increase beta-blockers to 50 mg twice daily Continue nutritional support/enteral feeding Continue ventilatory support. Reviewed results of ultrasound of the liver Continue lactulose and rifaximin Continue insulin and bicarb drip for her worsening metabolic acidosis Hold Tapazole as the patient seems to be having more issues with her liver enzymes today and may be caused by Tapazole Continue GI DVT prophylaxis Continue Xarelto Continue antibiotics empirically Patient is extremely ill and critically ill Critical care time is 40 minutes. Not including the time spent on procedures. Will continue to follow Time with Patient: Greater than 30
[2024-11-30 12:28] LABS: Glucose,Whole Blood 164 mg/dL (70-110)
--- NOTE | 2024-11-30 12:42 | P.PN ---
Subjective Progress Note Date: 11/29/24 Principal diagnosis: Reason for follow-up is pneumonia Patient is a 44-year-old female with a past medical history significant for atrial fibrillation hypothyroidism insulin-dependent diabetes mellitus on insulin pump patient has been brought into the hospital for eval uation of mental status changes on arrival with EMS patient was minimally responsive noticed to be in SVT ended up getting intubated admitted to ICU concerning for left lower lobe pneumonia prompting this consultation. On today's evaluation that is 11/29/2024 patient did have low-grade fever 100 F at midnight afebrile at noon patient remains to be intubated on the vent FiO2 is currently at 30% no significant purulent secretion through the ET or diarrhea has been reported. Patient white count slightly up to 23.71, creatinine 0.59 blood and sputum cultures currently pending Objective - Vital Signs Vital signs: Vital Signs Temp 98.9 F 11/29/24 12:00 Pulse 100 11/29/24 12:00 Resp 31 H 11/29/24 12:00 BP 88/46 11/29/24 12:00 Pulse Ox 97 11/29/24 12:00 FiO2 30 11/29/24 12:00 Intake & Output 11/28/24 11/29/24 11/29/24 18:59 06:59 18:59 Intake Total 2095.358 369.951 7137 Output Total 985 1360 380 Balance 1110.358 -463.190 8692 Weight 72.3 kg 71.6 kg 71.6 kg Intake: IV 1836 736 215 0.9 ART LINE PRESSURE BAG 36 36 15 D5-0.45% NaCl with KCl 1800 20Meq/l 1,000 ml @ 150 mls/hr IV .Q6H40M [facility] Rx# :[id number] D5-0.45% NaCl with KCl 600 100 20Meq/l 1,000 ml @ 50 mls /hr IV .Q20H [facility] Rx#: [id number] Piperacillin-Tazobactam 3 100 100 .375 gm In Sodium Chloride 0.9% 100 ml @ 25 mls/hr IVPB Q8H [facility] Rx#: [id number] Intake, IV Titration 259.358 3.977 1300 Amount Dexmedetomidine/0.9% NaCl 3.977 (Pmx) 400 mcg In Empty Bag 1 bag @ 0.2 MCG/KG/HR 3.615 mls/hr IV .Q24H [facility] Rx#:[id number] Insulin Regular 100 unit 25.283 In Sodium Chloride 0.9% 100 ml @ 0.1 UNITS/KG/HR 6.807 mls/hr IV .[id number] [facility] Rx#:[id number] Midazolam HCl 50 mg In 10.350 Sodium Chloride 0.9% 40 ml @ 3 MG/HR 3 mls/hr IV .[id number] [facility] Rx#: [id number] Sodium Chloride 0.9% 1, 300 000 ml @ 100 mls/hr IV . Q10H [facility] Rx#:[id number] Sodium Chloride 0.9% 1, 80 000 ml @ 999 mls/hr IV . Q1H1M [facility] Rx#:[id number] Sodium Chloride 0.9% 1, 1000 000 ml @ 999 mls/hr IV . Q1H1M [facility] Rx#:[id number] cefTRIAXone 1 gm In 50 Sodium Chloride 0.9% 50 ml @ 100 mls/hr IVPB Q12HR [facility] Rx#:[id number] propofoL 1,000 mg In 93.725 Empty Bag 1 bag @ 15 MCG/ KG/MIN 6.124 mls/hr IV . [id number] [facility] Rx#:[id number] Other 60 Output: Urine 985 1360 380 Other: Voiding Method Indwelling Catheter Indwelling Catheter ABP, PAP, CO, CI - Last Documented Arterial Blood Pressure 82/41 - Exam GENERAL DESCRIPTION: Middle-age female intubated on the vent RESPIRATORY SYSTEM: Unlabored breathing , decreased breath sounds at bases HEART: S1 S2 regular rate and rhythm , ABDOMEN: Soft , no tenderness EXTREMITIES: No edema feet - Labs CBC & Chem 7: 11/30/24 03:45 11/30/24 03:45 Labs: Abnormal Lab Results - Last 24 Hours (Table) 11/28/24 11/28/24 11/28/24 Range/Units 04:35 12:50 13:11 WBC (4.50-10.00) 10*3/uL RBC (4.10-5.20) 10*6/uL Hgb (12.0-15.0) g/dL Hct (37.2-46.3) % MPV (9.5-12.2) fL Immature Gran # (0.00-0.04) 10*3/uL Neutrophils # (1.80-7.70) 10*3/uL Monocytes # (0.20-1.00) 10*3/uL Eosinophils # (0.04-0.35) 10*3/uL ABG pCO2 (35-45) mmHg ABG pO2 (83-108) mmHg ABG HCO3 (21-25) mmol/L ABG Total CO2 (19-24) mmol/L ABG O2 Saturation (94-97) % Hemoglobin (11.4-16.0) gm/dL Sodium 132 L (137-145) mmol/L Potassium (3.5-5.1) mmol/L Chloride 111 H (98-107) mmol/L Carbon Dioxide 15 L (22-30) mmol/L BUN 19 H (7-17) mg/dL Glucose 162 H (74-99) mg/dL POC Glucose (mg/dL) 155 H (70-110) mg/dL Hemoglobin A1c (<=6.0) % Total Bilirubin (0.2-1.3) mg/dL AST 493 H (14-36) U/L ALT 204 H (4-34) U/L Alkaline Phosphatase 238 H (38-126) U/L Total Protein 5.7 L (6.3-8.2) g/dL Albumin 2.6 L (3.5-5.0) g/dL Triglycerides 183.00 H (0.00-149.00) mg/dL HDL Cholesterol 27.50 L (40.00-60.00) mg/dL 11/28/24 11/28/24 11/28/24 Range/Units 13:55 16:13 17:07 WBC (4.50-10.00) 10*3/uL RBC (4.10-5.20) 10*6/uL Hgb (12.0-15.0) g/dL Hct (37.2-46.3) % MPV (9.5-12.2) fL Immature Gran # (0.00-0.04) 10*3/uL Neutrophils # (1.80-7.70) 10*3/uL Monocytes # (0.20-1.00) 10*3/uL Eosinophils # (0.04-0.35) 10*3/uL ABG pCO2 (35-45) mmHg ABG pO2 (83-108) mmHg ABG HCO3 (21-25) mmol/L ABG Total CO2 (19-24) mmol/L ABG O2 Saturation (94-97) % Hemoglobin (11.4-16.0) gm/dL Sodium (137-145) mmol/L Potassium (3.5-5.1) mmol/L Chloride (98-107) mmol/L Carbon Dioxide (22-30) mmol/L BUN (7-17) mg/dL Glucose (74-99) mg/dL POC Glucose (mg/dL) 137 H 189 H 253 H (70-110) mg/dL Hemoglobin A1c (<=6.0) % Total Bilirubin (0.2-1.3) mg/dL AST (14-36) U/L ALT (4-34) U/L Alkaline Phosphatase (38-126) U/L Total Protein (6.3-8.2) g/dL Albumin (3.5-5.0) g/dL Triglycerides (0.00-149.00) mg/dL HDL Cholesterol (40.00-60.00) mg/dL 11/28/24 11/29/24 11/29/24 Range/Units 18:21 00:07 02:28 WBC (4.50-10.00) 10*3/uL RBC (4.10-5.20) 10*6/uL Hgb (12.0-15.0) g/dL Hct (37.2-46.3) % MPV (9.5-12.2) fL Immature Gran # (0.00-0.04) 10*3/uL Neutrophils # (1.80-7.70) 10*3/uL Monocytes # (0.20-1.00) 10*3/uL Eosinophils # (0.04-0.35) 10*3/uL ABG pCO2 (35-45) mmHg ABG pO2 (83-108) mmHg ABG HCO3 (21-25) mmol/L ABG Total CO2 (19-24) mmol/L ABG O2 Saturation (94-97) % Hemoglobin (11.4-16.0) gm/dL Sodium 133 L (137-145) mmol/L Potassium (3.5-5.1) mmol/L Chloride 111 H (98-107) mmol/L Carbon Dioxide 18 L (22-30) mmol/L BUN 20 H (7-17) mg/dL Glucose 269 H (74-99) mg/dL POC Glucose (mg/dL) 278 H 249 H (70-110) mg/dL Hemoglobin A1c (<=6.0) % Total Bilirubin 1.9 H (0.2-1.3) mg/dL AST 699 H (14-36) U/L ALT 317 H (4-34) U/L Alkaline Phosphatase 234 H (38-126) U/L Total Protein 5.4 L (6.3-8.2) g/dL Albumin 2.3 L (3.5-5.0) g/dL Triglycerides (0.00-149.00) mg/dL HDL Cholesterol (40.00-60.00) mg/dL 11/29/24 11/29/24 11/29/24 Range/Units 04:40 04:40 04:40 WBC 23.71 H (4.50-10.00) 10*3/uL RBC 3.42 L (4.10-5.20) 10*6/uL Hgb 9.3 L (12.0-15.0) g/dL Hct 28.7 L (37.2-46.3) % MPV 12.3 H (9.5-12.2) fL Immature Gran # 0.27 H (0.00-0.04) 10*3/uL Neutrophils # 20.43 H (1.80-7.70) 10*3/uL Monocytes # 1.86 H (0.20-1.00) 10*3/uL Eosinophils # 0.00 L (0.04-0.35) 10*3/uL ABG pCO2 (35-45) mmHg ABG pO2 (83-108) mmHg ABG HCO3 (21-25) mmol/L ABG Total CO2 (19-24) mmol/L ABG O2 Saturation (94-97) % Hemoglobin (11.4-16.0) gm/dL Sodium 134 L (137-145) mmol/L Potassium 5.2 H (3.5-5.1) mmol/L Chloride 109 H (98-107) mmol/L Carbon Dioxide 15 L (22-30) mmol/L BUN 21 H (7-17) mg/dL Glucose 286 H (74-99) mg/dL POC Glucose (mg/dL) (70-110) mg/dL Hemoglobin A1c 7.0 H (<=6.0) % Total Bilirubin 2.2 H (0.2-1.3) mg/dL AST 688 H (14-36) U/L ALT 339 H (4-34) U/L Alkaline Phosphatase 260 H (38-126) U/L Total Protein 5.6 L (6.3-8.2) g/dL Albumin 2.5 L (3.5-5.0) g/dL Triglycerides (0.00-149.00) mg/dL HDL Cholesterol (40.00-60.00) mg/dL 11/29/24 11/29/24 11/29/24 Range/Units 04:40 04:41 11:40 WBC (4.50-10.00) 10*3/uL RBC (4.10-5.20) 10*6/uL Hgb (12.0-15.0) g/dL Hct (37.2-46.3) % MPV (9.5-12.2) fL Immature Gran # (0.00-0.04) 10*3/uL Neutrophils # (1.80-7.70) 10*3/uL Monocytes # (0.20-1.00) 10*3/uL Eosinophils # (0.04-0.35) 10*3/uL ABG pCO2 31 L (35-45) mmHg ABG pO2 131 H (83-108) mmHg ABG HCO3 17 L (21-25) mmol/L ABG Total CO2 18 L (19-24) mmol/L ABG O2 Saturation 99.5 H (94-97) % Hemoglobin 9.7 L (11.4-16.0) gm/dL Sodium (137-145) mmol/L Potassium (3.5-5.1) mmol/L Chloride (98-107) mmol/L Carbon Dioxide (22-30) mmol/L BUN (7-17) mg/dL Glucose (74-99) mg/dL POC Glucose (mg/dL) 294 H 277 H (70-110) mg/dL Hemoglobin A1c (<=6.0) % Total Bilirubin (0.2-1.3) mg/dL AST (14-36) U/L ALT (4-34) U/L Alkaline Phosphatase (38-126) U/L Total Protein (6.3-8.2) g/dL Albumin (3.5-5.0) g/dL Triglycerides (0.00-149.00) mg/dL HDL Cholesterol (40.00-60.00) mg/dL Assessment and Plan (1) Pneumonia Current Visit: Yes Status: Acute Code(s): J18.9 - PNEUMONIA, UNSPECIFIED ORGANISM SNOMED Code(s): 430463464 (2) Sepsis Current Visit: No Status: Acute Code(s): A41.9 - SEPSIS, UNSPECIFIED ORGANISM SNOMED Code(s): 04409428 Plan: 1patient presented the hospital with sepsis in this patient who did have fever tachycardia elevated white count meeting currently for SIRS/sepsis source is pneumonia in this patient admitted to hospital with decreased level of responsiveness requiring intubation concern for possible aspiration pneumonia 2-blood and sputum culture have been obtained results will be followed 3patient will be treated with Zosyn 3.37 g every 8 hours while waiting for the culture to finalize Dictation was produced using [employer] dictation software. please excuse any grammatical, word or spelling errors. Time with Patient: Less than 30
[2024-11-30] MEDS ORDERED: VANCOMYCIN IV PER PHARMACY 1 EACH MISC MISCELLANE PRN (12:43)
--- NOTE | 2024-11-30 12:43 | P.PN ---
Subjective Progress Note Date: 11/30/24 Principal diagnosis: Reason for follow-up is pneumonia Patient is a 44-year-old female with a past medical history significant for atrial fibrillation hypothyroidism insulin-dependent diabetes mellitus on insulin pump patient has been brought into the hospital for eval uation of mental status changes on arrival with EMS patient was minimally responsive noticed to be in SVT ended up getting intubated admitted to ICU concerning for left lower lobe pneumonia prompting this consultation. On today's evaluation that is 11/30/2024, patient did have a fever last night and this morning patient remains to be intubated on the vent FiO2 currently at 30% no significant purulent secretion through the ET or any changes reported. Patient white count is down to 20.02 creatinine slightly up to 1.24 chest x-ray left lower lobe infiltrate Objective - Vital Signs Vital signs: Vital Signs Temp 101.5 F H 11/30/24 12:00 Pulse 86 11/30/24 12:15 Resp 28 H 11/30/24 12:00 BP 110/55 11/30/24 07:30 Pulse Ox 98 11/30/24 12:15 FiO2 30 11/30/24 11:19 Intake & Output 11/29/24 11/30/24 11/30/24 18:59 06:59 18:59 Intake Total 2291.925 2741.950 1141.009 Output Total 805 1005 575 Balance 8493.598 8148.950 566.009 Weight 71.6 kg 75.6 kg Intake: IV 233 289 640 0.9 ART LINE PRESSURE BAG 33 39 15 D5-0.45% NaCl with KCl 100 20Meq/l 1,000 ml @ 50 mls /hr IV .Q20H [facility] Rx#: [id number] Dextrose 5% in Water 1, 200 500 000 ml @ 100 mls/hr IV . [id number] [facility] with Sodium Bicarb (1 Meq/ml) 150 ml Rx#:[id number] Piperacillin-Tazobactam 3 100 50 .375 gm In Sodium Chloride 0.9% 100 ml @ 25 mls/hr IVPB Q8H [facility] Rx#: [id number] Sodium Chloride 0.9% 1, 125 000 ml @ 25 mls/hr IV . Q24H [facility] Rx#:[id number] Intake, IV Titration 1897.372 0251.950 291.009 Amount Dexmedetomidine/0.9% NaCl 2.892 (Pmx) 400 mcg In Empty Bag 1 bag @ 0.2 MCG/KG/HR 3.615 mls/hr IV .Q24H [facility] Rx#:[id number] Norepinephrine 4 mg In 58.925 50.058 291.009 Sodium Chloride 0.9% 250 ml @ 0.03 MCG/KG/MIN 8. 184 mls/hr IV .Q24H [facility] Rx#:[id number] Sodium Chloride 0.9% 1, 800 1150 000 ml @ 25 mls/hr IV . Q24H [facility] Rx#:[id number] Sodium Chloride 0.9% 1, 1000 000 ml @ 999 mls/hr IV . Q1H1M [facility] Rx#:[id number] Sodium Chloride 0.9% 1, 1000 000 ml @ 999 mls/hr IV . Q1H1M [facility] Rx#:[id number] Tube Feeding 50 250 150 Other 150 60 Output: Urine 805 1005 575 Other: Voiding Method Indwelling Catheter Indwelling Catheter Indwelling Catheter ABP, PAP, CO, CI - Last Documented Arterial Blood Pressure 165/55 - Exam GENERAL DESCRIPTION: Middle-age female intubated on the vent RESPIRATORY SYSTEM: Unlabored breathing , decreased breath sounds at bases HEART: S1 S2 regular rate and rhythm , ABDOMEN: Soft , no tenderness EXTREMITIES: No edema feet - Labs CBC & Chem 7: 11/30/24 03:45 11/30/24 03:45 Labs: Abnormal Lab Results - Last 24 Hours (Table) 11/29/24 11/29/24 11/29/24 Range/Units 12:40 17:56 23:36 WBC (4.50-10.00) 10*3/uL RBC (4.10-5.20) 10*6/uL Hgb (12.0-15.0) g/dL Hct (37.2-46.3) % MCHC (32.0-37.0) g/dL Immature Gran # (0.00-0.04) 10*3/uL Neutrophils # (1.80-7.70) 10*3/uL Lymphocytes # (0.90-5.00) 10*3/uL Monocytes # (0.20-1.00) 10*3/uL Eosinophils # (0.04-0.35) 10*3/uL ABG pH (7.35-7.45) ABG pCO2 (35-45) mmHg ABG pO2 (83-108) mmHg ABG HCO3 (21-25) mmol/L ABG Total CO2 (19-24) mmol/L ABG O2 Saturation (94-97) % Hemoglobin (11.4-16.0) gm/dL Chloride (98-107) mmol/L Carbon Dioxide (22-30) mmol/L BUN (7-17) mg/dL Creatinine (0.52-1.04) mg/dL Glucose (74-99) mg/dL POC Glucose (mg/dL) 252 H 324 H (70-110) mg/dL Total Bilirubin (0.2-1.3) mg/dL AST (14-36) U/L ALT (4-34) U/L Alkaline Phosphatase (38-126) U/L Ammonia 86 H (<30) umol/L Total Protein (6.3-8.2) g/dL Albumin (3.5-5.0) g/dL Cortisol (3.1-22.4) UG/DL 11/30/24 11/30/24 11/30/24 Range/Units 01:36 03:45 03:45 WBC (4.50-10.00) 10*3/uL RBC (4.10-5.20) 10*6/uL Hgb (12.0-15.0) g/dL Hct (37.2-46.3) % MCHC (32.0-37.0) g/dL Immature Gran # (0.00-0.04) 10*3/uL Neutrophils # (1.80-7.70) 10*3/uL Lymphocytes # (0.90-5.00) 10*3/uL Monocytes # (0.20-1.00) 10*3/uL Eosinophils # (0.04-0.35) 10*3/uL ABG pH (7.35-7.45) ABG pCO2 (35-45) mmHg ABG pO2 (83-108) mmHg ABG HCO3 (21-25) mmol/L ABG Total CO2 (19-24) mmol/L ABG O2 Saturation (94-97) % Hemoglobin (11.4-16.0) gm/dL Chloride (98-107) mmol/L Carbon Dioxide (22-30) mmol/L BUN (7-17) mg/dL Creatinine (0.52-1.04) mg/dL Glucose (74-99) mg/dL POC Glucose (mg/dL) 248 H (70-110) mg/dL Total Bilirubin (0.2-1.3) mg/dL AST (14-36) U/L ALT (4-34) U/L Alkaline Phosphatase (38-126) U/L Ammonia 146 H (<30) umol/L Total Protein (6.3-8.2) g/dL Albumin (3.5-5.0) g/dL Cortisol 37.7 H (3.1-22.4) UG/DL 11/30/24 11/30/24 11/30/24 Range/Units 03:45 03:45 04:33 WBC 20.02 H (4.50-10.00) 10*3/uL RBC 3.39 L (4.10-5.20) 10*6/uL Hgb 9.4 L (12.0-15.0) g/dL Hct 30.4 L (37.2-46.3) % MCHC 30.9 L (32.0-37.0) g/dL Immature Gran # 0.26 H (0.00-0.04) 10*3/uL Neutrophils # 17.67 H (1.80-7.70) 10*3/uL Lymphocytes # 0.44 L (0.90-5.00) 10*3/uL Monocytes # 1.62 H (0.20-1.00) 10*3/uL Eosinophils # 0.00 L (0.04-0.35) 10*3/uL ABG pH 7.21 L (7.35-7.45) ABG pCO2 26 L (35-45) mmHg ABG pO2 114 H (83-108) mmHg ABG HCO3 10 L* (21-25) mmol/L ABG Total CO2 11 L (19-24) mmol/L ABG O2 Saturation 98.4 H (94-97) % Hemoglobin 9.0 L (11.4-16.0) gm/dL Chloride 120 H (98-107) mmol/L Carbon Dioxide 7 L* (22-30) mmol/L BUN 23 H (7-17) mg/dL Creatinine 1.24 H (0.52-1.04) mg/dL Glucose 201 H (74-99) mg/dL POC Glucose (mg/dL) (70-110) mg/dL Total Bilirubin 3.1 H (0.2-1.3) mg/dL AST 990 H (14-36) U/L ALT 471 H (4-34) U/L Alkaline Phosphatase 244 H (38-126) U/L Ammonia (<30) umol/L Total Protein 5.2 L (6.3-8.2) g/dL Albumin 2.3 L (3.5-5.0) g/dL Cortisol (3.1-22.4) UG/DL 11/30/24 11/30/24 11/30/24 Range/Units 05:57 06:58 08:12 WBC (4.50-10.00) 10*3/uL RBC (4.10-5.20) 10*6/uL Hgb (12.0-15.0) g/dL Hct (37.2-46.3) % MCHC (32.0-37.0) g/dL Immature Gran # (0.00-0.04) 10*3/uL Neutrophils # (1.80-7.70) 10*3/uL Lymphocytes # (0.90-5.00) 10*3/uL Monocytes # (0.20-1.00) 10*3/uL Eosinophils # (0.04-0.35) 10*3/uL ABG pH (7.35-7.45) ABG pCO2 (35-45) mmHg ABG pO2 (83-108) mmHg ABG HCO3 (21-25) mmol/L ABG Total CO2 (19-24) mmol/L ABG O2 Saturation (94-97) % Hemoglobin (11.4-16.0) gm/dL Chloride (98-107) mmol/L Carbon Dioxide (22-30) mmol/L BUN (7-17) mg/dL Creatinine (0.52-1.04) mg/dL Glucose (74-99) mg/dL POC Glucose (mg/dL) 219 H 261 H 250 H (70-110) mg/dL Total Bilirubin (0.2-1.3) mg/dL AST (14-36) U/L ALT (4-34) U/L Alkaline Phosphatase (38-126) U/L Ammonia (<30) umol/L Total Protein (6.3-8.2) g/dL Albumin (3.5-5.0) g/dL Cortisol (3.1-22.4) UG/DL 11/30/24 11/30/24 11/30/24 Range/Units 09:27 09:43 09:56 WBC (4.50-10.00) 10*3/uL RBC (4.10-5.20) 10*6/uL Hgb (12.0-15.0) g/dL Hct (37.2-46.3) % MCHC (32.0-37.0) g/dL Immature Gran # (0.00-0.04) 10*3/uL Neutrophils # (1.80-7.70) 10*3/uL Lymphocytes # (0.90-5.00) 10*3/uL Monocytes # (0.20-1.00) 10*3/uL Eosinophils # (0.04-0.35) 10*3/uL ABG pH (7.35-7.45) ABG pCO2 32 L (35-45) mmHg ABG pO2 132 H (83-108) mmHg ABG HCO3 18 L (21-25) mmol/L ABG Total CO2 (19-24) mmol/L ABG O2 Saturation 99.7 H (94-97) % Hemoglobin 8.7 L (11.4-16.0) gm/dL Chloride (98-107) mmol/L Carbon Dioxide (22-30) mmol/L BUN (7-17) mg/dL Creatinine (0.52-1.04) mg/dL Glucose (74-99) mg/dL POC Glucose (mg/dL) 243 H 223 H (70-110) mg/dL Total Bilirubin (0.2-1.3) mg/dL AST (14-36) U/L ALT (4-34) U/L Alkaline Phosphatase (38-126) U/L Ammonia (<30) umol/L Total Protein (6.3-8.2) g/dL Albumin (3.5-5.0) g/dL Cortisol (3.1-22.4) UG/DL 11/30/24 11/30/24 Range/Units 11:02 12:26 WBC (4.50-10.00) 10*3/uL RBC (4.10-5.20) 10*6/uL Hgb (12.0-15.0) g/dL Hct (37.2-46.3) % MCHC (32.0-37.0) g/dL Immature Gran # (0.00-0.04) 10*3/uL Neutrophils # (1.80-7.70) 10*3/uL Lymphocytes # (0.90-5.00) 10*3/uL Monocytes # (0.20-1.00) 10*3/uL Eosinophils # (0.04-0.35) 10*3/uL ABG pH (7.35-7.45) ABG pCO2 (35-45) mmHg ABG pO2 (83-108) mmHg ABG HCO3 (21-25) mmol/L ABG Total CO2 (19-24) mmol/L ABG O2 Saturation (94-97) % Hemoglobin (11.4-16.0) gm/dL Chloride (98-107) mmol/L Carbon Dioxide (22-30) mmol/L BUN (7-17) mg/dL Creatinine (0.52-1.04) mg/dL Glucose (74-99) mg/dL POC Glucose (mg/dL) 217 H 164 H (70-110) mg/dL Total Bilirubin (0.2-1.3) mg/dL AST (14-36) U/L ALT (4-34) U/L Alkaline Phosphatase (38-126) U/L Ammonia (<30) umol/L Total Protein (6.3-8.2) g/dL Albumin (3.5-5.0) g/dL Cortisol (3.1-22.4) UG/DL Microbiology - Last 24 Hours (Table) 11/28/24 19:34 Blood Culture - Preliminary Blood 11/29/24 08:45 Gram Stain - Preliminary Sputum Assessment and Plan (1) Pneumonia Current Visit: Yes Status: Acute Code(s): J18.9 - PNEUMONIA, UNSPECIFIED ORGANISM SNOMED Code(s): 662161934 (2) Sepsis Current Visit: No Status: Acute Code(s): A41.9 - SEPSIS, UNSPECIFIED ORGANISM SNOMED Code(s): 44982904 Plan: 1patient presented the hospital with sepsis in this patient who did have fever tachycardia elevated white count meeting currently for SIRS/sepsis source is pneumonia in this patient admitted to hospital with decreased level of responsiveness requiring intubation concern for possible aspiration pneumonia 2-blood and sputum culture have been obtained, which are currently pending 3patient did have a fever despite being on Zosyn unable to add Zyvox because of drug interaction mild elevation of the creatinine we will discontinue Zosyn and adjust antibiotics cefepime and vancomycin pending completion of the culture and monitor clinical course closely Dictation was produced using [employer] dictation software. please excuse any grammatical, word or spelling errors. Time with Patient: Less than 30
[2024-11-30] MEDS ORDERED: PETROLATUM, WHITE 49 GM JELLY TOPICAL PRN (13:11)
[2024-11-30 13:27] LABS: Glucose,Whole Blood 142 mg/dL (70-110)
[2024-11-30 14:22] LABS: Glucose,Whole Blood 126 mg/dL (70-110)
[2024-11-30 15:05] LABS: Glucose,Whole Blood 125 mg/dL (70-110)
--- NOTE | 2024-11-30 15:29 | CA ---
Transthoracic Echo Report Name: Cristina Guerra Age: 44 Gender: F : 1980 Exam Date: 11/30/2024 09:40 Exam Location: [place] [facility] Ht (in): 67 Wt (lb): 166 Ordering Physician: Deysi Pollack MD Attending/Referring Phys: Rn Baby Jenny Greenberg RDCS Procedure CPT: Indications: septic shock Cardiac Hx: Technical Quality: Fair Contrast 1: Total Dose (mL): Contrast 2: Total Dose (mL): MEASUREMENTS (Male / Female) Normal Values 2D ECHO LV Diastolic Diameter PLAX 4.4 cm 4.2 - 5.9 / 3.9 - 5.3 cm LV Systolic Diameter PLAX 2.3 cm IVS Diastolic Thickness 1.1 cm 0.6 - 1.0 / 0.6 - 0.9 cm LVPW Diastolic Thickness 0.9 cm 0.6 - 1.0 / 0.6 - 0.9 cm LV Relative Wall Thickness 0.5 LV Diastolic Volume MOD BP 106.4 cm??? 67 - 155 / 56 - 104 cm??? LV Systolic Volume MOD BP 18.4 cm??? 22 - 58 / 19 - 49 cm??? LV Ejection Fraction MOD BP 82.7 % >= 55 % LV Cardiac Index MOD BP 4169.9 cm???/min???m??? LV Diastolic Volume MOD 4C 91.1 cm??? LV Systolic Volume MOD 4C 17.3 cm??? LV Ejection Fraction MOD 4C 81.0 % LV Cardiac Index MOD 4C 3493.0 cm???/min???m??? LV Diastolic Length 4C 8.2 cm LV Systolic Length 4C 5.3 cm LV Diastolic Volume MOD 2C 115.7 cm??? LV Systolic Volume MOD 2C 9.3 cm??? LV Ejection Fraction MOD 2C 92.0 % LV Cardiac Index MOD 2C 5040.0 cm???/min???m??? LV Diastolic Length 2C 8.8 cm LV Systolic Length 2C 2.5 cm FINDINGS Left Ventricle Normal left ventricular systolic function with no obvious regional wall motion abnormalities. Left ventricular ejection fraction is estimated at 60-65%. Left ventricular cavity size normal. Right Ventricle Right Atrium Left Atrium Mitral Valve Aortic Valve Tricuspid Valve Pulmonic Valve Pericardium No pericardial effusion. Aorta CONCLUSIONS Limited echo. Definity ECHO contrast used for improved visualization of the endocardial borders (inadequate visualization of two or more contiguous segments). Normal ventricular size and systolic function with no segmental wall motion abnormality Previewed by: Dr. Paulo Loyd MD (Electronically Signed) Final Date: 30 November 2024 15:28
[2024-11-30] MEDS: VANCOMYCIN 1,500 MG in SODIUM CHLORIDE 0.9% 500 ML 500 ML IVPB ONE (15:39)
[2024-11-30 16:10] LABS: Glucose,Whole Blood 157 mg/dL (70-110)
[2024-11-30 17:12] LABS: Glucose,Whole Blood 181 mg/dL (70-110)
[2024-11-30 18:05] LABS: Glucose,Whole Blood 212 mg/dL (70-110)
[2024-11-30 19:09] LABS: Glucose,Whole Blood 235 mg/dL (70-110)
[2024-11-30 20:38] LABS: Glucose,Whole Blood 289 mg/dL (70-110)
[2024-11-30 21:56] LABS: Glucose,Whole Blood 304 mg/dL (70-110)
[2024-11-30 23:35] LABS: Glucose,Whole Blood 328 mg/dL (70-110)
[2024-12-01 00:14] LABS: Glucose,Whole Blood 317 mg/dL (70-110)
[2024-12-01 01:15] LABS: Glucose,Whole Blood 271 mg/dL (70-110)
--- NOTE | 2024-12-01 01:23 | PN ---
PROGRESS NOTE She is treated for pneumonia. Switched antibiotics due to Staph aureus in the sputum culture over to vancomycin and cefepime. She is status post DKA. Is still on the vent. She has worsening metabolic acidosis, requiring bicarb drip, developed hypotension requiring norepinephrine. Held her Tapazole as liver panels can worsen, beta osbaldo for AFib and flutter. Ammonia level has increased. Lactulose is in. She is not getting lactulose, so we have to do it rectally. White count is 20.02 with elevated prolactin of 23. She, definitely, has left lower lobe pneumonia and sepsis, AFib with RVR, COPD, pulmonary hypertension, DKA and dehydration. BUN is 23, creatinine 1.24. Switched her IV antibiotics, which hopefully will pull her out of the sepsis and cover her DKA. Hyperammonia levels will have to be treated with lactulose and Xifaxan, Xarelto. Prognosis is guarded. MMODL / IJN: [id number] /
[2024-12-01 02:08] LABS: Glucose,Whole Blood 231 mg/dL (70-110)
[2024-12-01] MEDS: VANCOMYCIN 1,500 MG in SODIUM CHLORIDE 0.9% 500 ML 500 ML IVPB SCH (02:09)
[2024-12-01 02:30] LABS: Influenza A Not Detected (Not Detectd); Influenza B Not Detected (Not Detectd); RSV Not Detected (Not Detectd)
[2024-12-01 03:11] LABS: Glucose,Whole Blood 181 mg/dL (70-110)
[2024-12-01 04:26] LABS: Basophils # (A) 0.03 10*3/uL (0.00-0.10); Basophils % (A) 0.2 %; HCT 28.4 % (37.2-46.3); HGB 9.3 g/dL (12.0-15.0); Lymphocytes # (A) 1.44 10*3/uL (0.90-5.00); Lymphocytes % (A) 8.5 %; MCH 27.7 pg (27.0-32.0); MCHC 32.7 g/dL (32.0-37.0); Mean Platelet Volume 12.6 fL (9.5-12.2); Monocytes # (A) 0.89 10*3/uL (0.20-1.00); Monocytes % (A) 5.3 %; Neutrophils # (A) 14.48 10*3/uL (1.80-7.70); Neutrophils % (A) 85.5 %; Platelet Count 163 10*3/uL (140-440); RBC 3.36 10*6/uL (4.10-5.20); RDW 16.4 % (11.5-14.5); WBC 16.92 10*3/uL (4.50-10.00)
[2024-12-01 04:32] LABS: MCV 84.5 fL (80.0-97.0)
[2024-12-01 05:04] LABS: Glucose,Whole Blood 104 mg/dL (70-110)
[2024-12-01 05:34] LABS: African American GFR (CKD) >90 (>60 ml/min/1.73 sqM); Albumin 1.9 g/dL (3.5-5.0); Alkaline Phosphatase 204 U/L (38-126); Anion Gap 2 mmol/L; Blood Urea Nitrogen 28 mg/dL (7-17); Calcium 8.3 mg/dL (8.4-10.2); Carbon Dioxide 32 mmol/L (22-30); Chloride 124 mmol/L (98-107); Glucose 111 mg/dL (74-99); Non-African American GFR(CKD) >90 (>60 ml/min/1.73 sqM); Sodium 158 mmol/L (137-145); Total Bilirubin 2.6 mg/dL (0.2-1.3); Total Protein 4.8 g/dL (6.3-8.2)
[2024-12-01 05:50] LABS: ALT 908 U/L (4-34); Potassium 1.4 mmol/L (3.5-5.1)
[2024-12-01 06:01] LABS: AST 2076 U/L (14-36)
[2024-12-01 06:04] LABS: ABG Base Excess 5.2 mmol/L; ABG HCO3 30 mmol/L (21-25); ABG Oxygen Saturation 99.8 % (94-97); ABG PCO2 44 mmHg (35-45); ABG PH 7.44 (7.35-7.45); ABG PO2 141 mmHg (83-108); ABG TCO2 31 mmol/L (19-24)
[2024-12-01 06:06] LABS: Allen Test Performed? no
[2024-12-01 06:24] LABS: Glucose,Whole Blood 94 mg/dL (70-110)
[2024-12-01] MEDS: POTASSIUM BICARBONATE/CIT AC 20 MEQ TABLET.EFF NG-TUBE SCH (06:26)
[2024-12-01] MEDS: POTASSIUM CHLORIDE 20 MEQ in WATER FOR INJECTION 1 100ML.BAG IVPB SCH (06:26)
[2024-12-01 07:01] LABS: Glucose,Whole Blood 101 mg/dL (70-110)
[2024-12-01 08:06] LABS: Glucose,Whole Blood 146 mg/dL (70-110)
--- NOTE | 2024-12-01 08:21 | XR ---
EXAMINATION TYPE: XR chest 1V portable DATE OF EXAM: 12/01/2024 4:55 AM COMPARISON: 11/30/2024 CLINICAL INDICATION: Female, 44 years old with history of intubated, TECHNIQUE: XR chest 1V portable view(s) obtained. FINDINGS: The heart size is normal. The pulmonary vasculature is upper limits of normal. Left lower lobe infiltrate remains present Endotracheal tube tip is 6.2 cm above the mae. Nasogastric tube is been pulled back with the tip in distal esophagus. This should be advanced 10 cm. IMPRESSION: 1. Left lower lobe infiltrate. Correlate for atelectasis and pneumonia. Findings appear stable from c omparison. 2. Endotracheal tube tip above the mae. 3. Nasogastric tube pulled back and should be advanced 10 cm. [facility], , 12/01/2024 8:18 AM
[2024-12-01 09:07] LABS: Glucose,Whole Blood 162 mg/dL (70-110)
[2024-12-01 09:12] LABS: INR 4.5 (<1.2); Prothrombin Time 44.4 sec (10.0-12.5)
--- NOTE | 2024-12-01 09:26 | P.PN ---
Subjective Progress Note Date: 12/01/24 PROGRESS NOTE The patient is a 44-year-old female with known history of paroxysmal atrial fibrillation, diabetes mellitus, prior history of DKA who was brought into the hospital with symptoms of unresponsiveness, severe hyperglycemia acidosis. Because of her mental status she was intubated. She was tachycardic, reported to be SVT although the EKG available to me shows atrial flutter with 2-1 conduction. She underwent cardioversion by the EMS and subsequently in the ER and is in sinus mechanism at this time. She was on IV Cardizem that was stopped because of bradycardia. She remains intubated. Her urine output is good. She had a prior history of similar presentation with DKA. The echocardiogram available from 2020 showed a preserved systolic function with mild aortic stenosis and moderate mitral regurgitation. She has been followed by Dr. Santoro and has been anticoagulated as an outpatient because of her paroxysmal atrial fibrillation. Her CT scan of the chest showed left lower lobe infiltrate with enlarged thyroid gland. Her brain CT shows no acute bleed. Her chest x- ray shows the infiltrate. On presentation her blood sugar was 640, plasma lactic acid 19.9. Her troponin was 0.057. This morning her carbon dioxide is 14 and her pH 7.32. November 29: The patient remains intubated, moving her extremities but not following command. She continues to be in atrial fibrillation with controlled ventricular response. Her urinary output has been good. Her blood sugar is under better control. She underwent an echocardiogram that showed an ejection fraction of 55 to 60% with a mean gradient of 25 mmHg across the aortic valve and mild to moderate mitral stenosis with severe pulmonary hypertension, estimated at 60 mmHg. She has been in and out of atrial fibrillation. November 30: The patient had episodes of tachycardia yesterday, probable atrial flutter. She was hypotensive, better at this time. She is in atrial fibrillation with controlled ventricular response. She continues to be intubated and sedated. There is no evidence of ventricular ectopic activity. Her urine output has been good. She continues to be on vasopressors. Her dose of beta-osbaldo was increased. December 01: The patient remains intubated and sedated. She is in sinus mechanism. Hemodynamically stable on no vasopressors. There is no evidence of ventricular ectopic activity. She continues to be on the beta-osbaldo. She is anticoagulated. She had a limited echo yesterday that showed a preserved systolic function. Medications: Atenolol 50 mg twice a day, folic acid, insulin, methimazole, Xarelto 20 mg daily, cefepime, folic acid, rifaximin, vancomycin PHYSICAL EXAMINATION: Blood pressure 126/50 heart rate 100, intubated, sedated LUNGS: Clear to auscultation HEART: Regular rate and rhythm, S1, S2. No S3. Systolic ejection murmur ABDOMEN: Soft, no organomegaly EXTREMETIES: +1 edema LAB: Hemoglobin 9.3, WBC 16.92, BUN 28, creatinine 0.63. Potassium 1.4 AST 2076, ALT 908. Blood sugar 111. pH 7.44. Ammonia 81 IMPRESSION: 1. Hyperglycemia with hyperosmolar state, improving 2. Paroxysmal atrial fibrillation, anticoagulated, back in sinus mechanism 3. Metabolic encephalopathy, elevated ammonia level 4. History of hypothyroidism 5. Alpha 1 antitrypsin 6. Mild to moderate aortic stenosis with severe pulmonary hypertension 7. Hypokalemia 8. Worsening liver function PLAN: 1. Continue supportive care 2. Treatment of elevated ammonia level and liver failure 3. Continue beta-osbaldo 4. Depending on her progress further recommendations will be made Objective - Vital Signs Vital signs: Vital Signs Temp 99.1 F 12/01/24 08:00 Pulse 106 H 12/01/24 08:05 Resp 16 12/01/24 08:00 BP 136/53 12/01/24 07:30 Pulse Ox 99 12/01/24 08:00 FiO2 30 12/01/24 07:55 Intake & Output 11/30/24 12/01/24 12/01/24 18:59 06:59 18:59 Intake Total 2963.322 2326.241 119.653 Output Total 1200 3350 300 Balance 1763.322 -1023.759 -180.347 Weight 75.6 kg Intake: IV 2007 0.9 ART LINE PRESSURE BAG 33 36 6 Cefepime 2 gm In Dextrose 100 150 5% in Water 100 ml @ 25 mls/hr IVPB Q12H [facility] Rx#: [id number] Dextrose 5% in Water 1, 1100 1250 000 ml @ 50 mls/hr IV . Q23H [facility] with Sodium Bicarb (1 Meq/ml) 150 ml Rx#:[id number] Sodium Chloride 0.9% 1, 275 125 25 000 ml @ 25 mls/hr IV . Q24H [facility] Rx#:[id number] Vancomycin 1,500 mg In 500 501 Sodium Chloride 0.9% 500 ml 500 ml @ 167 mls/hr IVPB ONCE ONE Rx#: [id number] Intake, IV Titration 495.322 64.241 1.653 Amount Insulin Regular 100 unit 54.852 46.341 1.653 In Sodium Chloride 0.9% 100 ml @ 0.1 UNITS/KG/HR 7.636 mls/hr IV .[id number] [facility] Rx#:[id number] Norepinephrine 4 mg In 361.710 Sodium Chloride 0.9% 250 ml @ 0.03 MCG/KG/MIN 8. 184 mls/hr IV .Q24H [facility] Rx#:[id number] fentaNYL (PF). 1,000 mcg 78.760 17.900 In Sodium Chloride 0.9% 80 ml @ 0.5 MCG/KG/HR 3. 58 mls/hr IV .Q24H [facility] Rx #:[id number] Tube Feeding 370 200 57 Other 90 30 Output: Urine 1200 1550 100 Stool 1800 200 Other: Voiding Method Indwelling Catheter Indwelling Catheter ABP, PAP, CO, CI - Last Documented Arterial Blood Pressure 126/52 - Labs CBC & Chem 7: 12/01/24 03:15 12/01/24 08:15 Labs: Abnormal Lab Results - Last 24 Hours (Table) 11/30/24 11/30/24 11/30/24 Range/Units 03:45 09:27 09:43 WBC (4.50-10.00) 10*3/uL RBC (4.10-5.20) 10*6/uL Hgb (12.0-15.0) g/dL Hct (37.2-46.3) % MPV (9.5-12.2) fL Immature Gran # (0.00-0.04) 10*3/uL Neutrophils # (1.80-7.70) 10*3/uL Eosinophils # (0.04-0.35) 10*3/uL PT (10.0-12.5) sec INR (<1.2) ABG pCO2 32 L (35-45) mmHg ABG pO2 132 H (83-108) mmHg ABG HCO3 18 L (21-25) mmol/L ABG Total CO2 (19-24) mmol/L ABG O2 Saturation 99.7 H (94-97) % Hemoglobin 8.7 L (11.4-16.0) gm/dL Sodium (137-145) mmol/L Potassium (3.5-5.1) mmol/L Chloride (98-107) mmol/L Carbon Dioxide (22-30) mmol/L BUN (7-17) mg/dL Glucose (74-99) mg/dL POC Glucose (mg/dL) 243 H (70-110) mg/dL Calcium (8.4-10.2) mg/dL Total Bilirubin (0.2-1.3) mg/dL AST (14-36) U/L ALT (4-34) U/L Alkaline Phosphatase (38-126) U/L Ammonia (<30) umol/L Total Protein (6.3-8.2) g/dL Albumin (3.5-5.0) g/dL Cortisol 37.7 H (3.1-22.4) UG/DL 11/30/24 11/30/24 11/30/24 Range/Units 09:56 11:02 12:26 WBC (4.50-10.00) 10*3/uL RBC (4.10-5.20) 10*6/uL Hgb (12.0-15.0) g/dL Hct (37.2-46.3) % MPV (9.5-12.2) fL Immature Gran # (0.00-0.04) 10*3/uL Neutrophils # (1.80-7.70) 10*3/uL Eosinophils # (0.04-0.35) 10*3/uL PT (10.0-12.5) sec INR (<1.2) ABG pCO2 (35-45) mmHg ABG pO2 (83-108) mmHg ABG HCO3 (21-25) mmol/L ABG Total CO2 (19-24) mmol/L ABG O2 Saturation (94-97) % Hemoglobin (11.4-16.0) gm/dL Sodium (137-145) mmol/L Potassium (3.5-5.1) mmol/L Chloride (98-107) mmol/L Carbon Dioxide (22-30) mmol/L BUN (7-17) mg/dL Glucose (74-99) mg/dL POC Glucose (mg/dL) 223 H 217 H 164 H (70-110) mg/dL Calcium (8.4-10.2) mg/dL Total Bilirubin (0.2-1.3) mg/dL AST (14-36) U/L ALT (4-34) U/L Alkaline Phosphatase (38-126) U/L Ammonia (<30) umol/L Total Protein (6.3-8.2) g/dL Albumin (3.5-5.0) g/dL Cortisol (3.1-22.4) UG/DL 11/30/24 11/30/24 11/30/24 Range/Units 13:25 14:21 15:01 WBC (4.50-10.00) 10*3/uL RBC (4.10-5.20) 10*6/uL Hgb (12.0-15.0) g/dL Hct (37.2-46.3) % MPV (9.5-12.2) fL Immature Gran # (0.00-0.04) 10*3/uL Neutrophils # (1.80-7.70) 10*3/uL Eosinophils # (0.04-0.35) 10*3/uL PT (10.0-12.5) sec INR (<1.2) ABG pCO2 (35-45) mmHg ABG pO2 (83-108) mmHg ABG HCO3 (21-25) mmol/L ABG Total CO2 (19-24) mmol/L ABG O2 Saturation (94-97) % Hemoglobin (11.4-16.0) gm/dL Sodium (137-145) mmol/L Potassium (3.5-5.1) mmol/L Chloride (98-107) mmol/L Carbon Dioxide (22-30) mmol/L BUN (7-17) mg/dL Glucose (74-99) mg/dL POC Glucose (mg/dL) 142 H 126 H 125 H (70-110) mg/dL Calcium (8.4-10.2) mg/dL Total Bilirubin (0.2-1.3) mg/dL AST (14-36) U/L ALT (4-34) U/L Alkaline Phosphatase (38-126) U/L Ammonia (<30) umol/L Total Protein (6.3-8.2) g/dL Albumin (3.5-5.0) g/dL Cortisol (3.1-22.4) UG/DL 11/30/24 11/30/24 11/30/24 Range/Units 16:08 17:10 18:02 WBC (4.50-10.00) 10*3/uL RBC (4.10-5.20) 10*6/uL Hgb (12.0-15.0) g/dL Hct (37.2-46.3) % MPV (9.5-12.2) fL Immature Gran # (0.00-0.04) 10*3/uL Neutrophils # (1.80-7.70) 10*3/uL Eosinophils # (0.04-0.35) 10*3/uL PT (10.0-12.5) sec INR (<1.2) ABG pCO2 (35-45) mmHg ABG pO2 (83-108) mmHg ABG HCO3 (21-25) mmol/L ABG Total CO2 (19-24) mmol/L ABG O2 Saturation (94-97) % Hemoglobin (11.4-16.0) gm/dL Sodium (137-145) mmol/L Potassium (3.5-5.1) mmol/L Chloride (98-107) mmol/L Carbon Dioxide (22-30) mmol/L BUN (7-17) mg/dL Glucose (74-99) mg/dL POC Glucose (mg/dL) 157 H 181 H 212 H (70-110) mg/dL Calcium (8.4-10.2) mg/dL Total Bilirubin (0.2-1.3) mg/dL AST (14-36) U/L ALT (4-34) U/L Alkaline Phosphatase (38-126) U/L Ammonia (<30) umol/L Total Protein (6.3-8.2) g/dL Albumin (3.5-5.0) g/dL Cortisol (3.1-22.4) UG/DL 11/30/24 11/30/24 11/30/24 Range/Units 19:06 20:36 21:54 WBC (4.50-10.00) 10*3/uL RBC (4.10-5.20) 10*6/uL Hgb (12.0-15.0) g/dL Hct (37.2-46.3) % MPV (9.5-12.2) fL Immature Gran # (0.00-0.04) 10*3/uL Neutrophils # (1.80-7.70) 10*3/uL Eosinophils # (0.04-0.35) 10*3/uL PT (10.0-12.5) sec INR (<1.2) ABG pCO2 (35-45) mmHg ABG pO2 (83-108) mmHg ABG HCO3 (21-25) mmol/L ABG Total CO2 (19-24) mmol/L ABG O2 Saturation (94-97) % Hemoglobin (11.4-16.0) gm/dL Sodium (137-145) mmol/L Potassium (3.5-5.1) mmol/L Chloride (98-107) mmol/L Carbon Dioxide (22-30) mmol/L BUN (7-17) mg/dL Glucose (74-99) mg/dL POC Glucose (mg/dL) 235 H 289 H 304 H (70-110) mg/dL Calcium (8.4-10.2) mg/dL Total Bilirubin (0.2-1.3) mg/dL AST (14-36) U/L ALT (4-34) U/L Alkaline Phosphatase (38-126) U/L Ammonia (<30) umol/L Total Protein (6.3-8.2) g/dL Albumin (3.5-5.0) g/dL Cortisol (3.1-22.4) UG/DL 11/30/24 12/01/24 12/01/24 Range/Units 23:34 00:13 01:14 WBC (4.50-10.00) 10*3/uL RBC (4.10-5.20) 10*6/uL Hgb (12.0-15.0) g/dL Hct (37.2-46.3) % MPV (9.5-12.2) fL Immature Gran # (0.00-0.04) 10*3/uL Neutrophils # (1.80-7.70) 10*3/uL Eosinophils # (0.04-0.35) 10*3/uL PT (10.0-12.5) sec INR (<1.2) ABG pCO2 (35-45) mmHg ABG pO2 (83-108) mmHg ABG HCO3 (21-25) mmol/L ABG Total CO2 (19-24) mmol/L ABG O2 Saturation (94-97) % Hemoglobin (11.4-16.0) gm/dL Sodium (137-145) mmol/L Potassium (3.5-5.1) mmol/L Chloride (98-107) mmol/L Carbon Dioxide (22-30) mmol/L BUN (7-17) mg/dL Glucose (74-99) mg/dL POC Glucose (mg/dL) 328 H 317 H 271 H (70-110) mg/dL Calcium (8.4-10.2) mg/dL Total Bilirubin (0.2-1.3) mg/dL AST (14-36) U/L ALT (4-34) U/L Alkaline Phosphatase (38-126) U/L Ammonia (<30) umol/L Total Protein (6.3-8.2) g/dL Albumin (3.5-5.0) g/dL Cortisol (3.1-22.4) UG/DL 12/01/24 12/01/24 12/01/24 Range/Units 02:07 03:09 03:15 WBC 16.92 H (4.50-10.00) 10*3/uL RBC 3.36 L (4.10-5.20) 10*6/uL Hgb 9.3 L (12.0-15.0) g/dL Hct 28.4 L (37.2-46.3) % MPV 12.6 H (9.5-12.2) fL Immature Gran # 0.08 H (0.00-0.04) 10*3/uL Neutrophils # 14.48 H (1.80-7.70) 10*3/uL Eosinophils # 0.00 L (0.04-0.35) 10*3/uL PT (10.0-12.5) sec INR (<1.2) ABG pCO2 (35-45) mmHg ABG pO2 (83-108) mmHg ABG HCO3 (21-25) mmol/L ABG Total CO2 (19-24) mmol/L ABG O2 Saturation (94-97) % Hemoglobin (11.4-16.0) gm/dL Sodium (137-145) mmol/L Potassium (3.5-5.1) mmol/L Chloride (98-107) mmol/L Carbon Dioxide (22-30) mmol/L BUN (7-17) mg/dL Glucose (74-99) mg/dL POC Glucose (mg/dL) 231 H 181 H (70-110) mg/dL Calcium (8.4-10.2) mg/dL Total Bilirubin (0.2-1.3) mg/dL AST (14-36) U/L ALT (4-34) U/L Alkaline Phosphatase (38-126) U/L Ammonia (<30) umol/L Total Protein (6.3-8.2) g/dL Albumin (3.5-5.0) g/dL Cortisol (3.1-22.4) UG/DL 12/01/24 12/01/24 12/01/24 Range/Units 03:30 04:45 05:51 WBC (4.50-10.00) 10*3/uL RBC (4.10-5.20) 10*6/uL Hgb (12.0-15.0) g/dL Hct (37.2-46.3) % MPV (9.5-12.2) fL Immature Gran # (0.00-0.04) 10*3/uL Neutrophils # (1.80-7.70) 10*3/uL Eosinophils # (0.04-0.35) 10*3/uL PT (10.0-12.5) sec INR (<1.2) ABG pCO2 (35-45) mmHg ABG pO2 141 H (83-108) mmHg ABG HCO3 30 H (21-25) mmol/L ABG Total CO2 31 H (19-24) mmol/L ABG O2 Saturation 99.8 H (94-97) % Hemoglobin 9.7 L (11.4-16.0) gm/dL Sodium 158 H (137-145) mmol/L Potassium 1.4 L* (3.5-5.1) mmol/L Chloride 124 H (98-107) mmol/L Carbon Dioxide 32 H (22-30) mmol/L BUN 28 H (7-17) mg/dL Glucose 111 H (74-99) mg/dL POC Glucose (mg/dL) (70-110) mg/dL Calcium 8.3 L (8.4-10.2) mg/dL Total Bilirubin 2.6 H (0.2-1.3) mg/dL AST 2076 H (14-36) U/L ALT 908 H (4-34) U/L Alkaline Phosphatase 204 H (38-126) U/L Ammonia 81 H (<30) umol/L Total Protein 4.8 L (6.3-8.2) g/dL Albumin 1.9 L (3.5-5.0) g/dL Cortisol (3.1-22.4) UG/DL 12/01/24 12/01/24 12/01/24 Range/Units 08:04 08:15 08:40 WBC (4.50-10.00) 10*3/uL RBC (4.10-5.20) 10*6/uL Hgb (12.0-15.0) g/dL Hct (37.2-46.3) % MPV (9.5-12.2) fL Immature Gran # (0.00-0.04) 10*3/uL Neutrophils # (1.80-7.70) 10*3/uL Eosinophils # (0.04-0.35) 10*3/uL PT 44.4 H (10.0-12.5) sec INR 4.5 H (<1.2) ABG pCO2 (35-45) mmHg ABG pO2 (83-108) mmHg ABG HCO3 (21-25) mmol/L ABG Total CO2 (19-24) mmol/L ABG O2 Saturation (94-97) % Hemoglobin (11.4-16.0) gm/dL Sodium (137-145) mmol/L Potassium 2.3 L* (3.5-5.1) mmol/L Chloride (98-107) mmol/L Carbon Dioxide (22-30) mmol/L BUN (7-17) mg/dL Glucose (74-99) mg/dL POC Glucose (mg/dL) 146 H (70-110) mg/dL Calcium (8.4-10.2) mg/dL Total Bilirubin (0.2-1.3) mg/dL AST (14-36) U/L ALT (4-34) U/L Alkaline Phosphatase (38-126) U/L Ammonia (<30) umol/L Total Protein (6.3-8.2) g/dL Albumin (3.5-5.0) g/dL Cortisol (3.1-22.4) UG/DL 12/01/24 Range/Units 09:04 WBC (4.50-10.00) 10*3/uL RBC (4.10-5.20) 10*6/uL Hgb (12.0-15.0) g/dL Hct (37.2-46.3) % MPV (9.5-12.2) fL Immature Gran # (0.00-0.04) 10*3/uL Neutrophils # (1.80-7.70) 10*3/uL Eosinophils # (0.04-0.35) 10*3/uL PT (10.0-12.5) sec INR (<1.2) ABG pCO2 (35-45) mmHg ABG pO2 (83-108) mmHg ABG HCO3 (21-25) mmol/L ABG Total CO2 (19-24) mmol/L ABG O2 Saturation (94-97) % Hemoglobin (11.4-16.0) gm/dL Sodium (137-145) mmol/L Potassium (3.5-5.1) mmol/L Chloride (98-107) mmol/L Carbon Dioxide (22-30) mmol/L BUN (7-17) mg/dL Glucose (74-99) mg/dL POC Glucose (mg/dL) 162 H (70-110) mg/dL Calcium (8.4-10.2) mg/dL Total Bilirubin (0.2-1.3) mg/dL AST (14-36) U/L ALT (4-34) U/L Alkaline Phosphatase (38-126) U/L Ammonia (<30) umol/L Total Protein (6.3-8.2) g/dL Albumin (3.5-5.0) g/dL Cortisol (3.1-22.4) UG/DL Microbiology - Last 24 Hours (Table) 11/28/24 19:34 Blood Culture - Preliminary Blood 11/29/24 08:45 Gram Stain - Preliminary Sputum Sputum Culture - Preliminary Presumptive Staph aureus
[2024-12-01] MEDS: DEXTROSE 5% IN WATER 1,000 ML with POTASSIUM CHLORIDE 40 MEQ IV SCH (09:47)
[2024-12-01] MEDS: VANCOMYCIN 1,250 MG in SODIUM CHLORIDE 0.9% 250 ML IVPB SCH (09:59)
--- NOTE | 2024-12-01 10:37 | P.PN ---
Subjective Progress Note Date: 12/01/24 Principal diagnosis: Acute hyperglycemia with hyperosmolar state and acute metabolic encephalopathy with acute hypoxic respiratory failure requiring intubation mechanical ventilati on. This is a 44-year-old female with known history of diabetes, patient had previous episode of DKA back in June of 2024, and she was seen by Dr. Gonzalez on consultation at the time. This time the patient seems to have a similar presentation she was brought into the ER with altered mental status, patient was unresponsive at home, and she was seen by EMS with what seems to be a picture of SVT. Patient did not respond to cardioversion by EMS. Heart rate rate was in the 200 range, patient was brought into the ER, and as soon as she arrived the patient was noted to be in distress, intubated and mechanically ventilated by the ER physician. Workup in the ER included venous blood gas s howing a bicarb of 8 and a pH of 6.92, she had blood sugar as high as 600+, lactic acid was as high as 19.9, urinalysis showed no evidence of ketones in the urine. CT of the brain showed no evidence of acute disease except for mild inflammatory changes in the left maxillary sinus and it also showed mild to moderate generalized atrophy. Chest x-ray showed endotracheal tube to be low- lying seems to be at the level just above the mae apparently this was adjusted already by the ER physician based on her initial chest x-ray. Could not obtain any history from the patient as she seems to be obtunded and unresponsive to any stimuli. Has recommended treatment as per DKA protocol, I also recommended CT of the brain to be done which came back nondiagnostic. In the meantime the patient is receiving fluid boluses so far she has received 2- 1/2 L of 0.9 normal saline and I recommended starting the patient on insulin drip. Patient was seen today on 11/28/2024, patient remains in the ICU, we admitted the patient yesterday from the ER. Remains intubated and mechanically ventilated, on assist-control rate 16 tidal volume 450 FiO2 30% and PEEP of 5 ABG showed a pO2 of 191 pCO2 32 pH of 7.32. Patient is on multiple drips including insulin drip at 2.95 units/h propofol at 50 mcg/kg/min Versed at 3 mg/h D5W at 120 cc/h. Patient is sedated, unable to assess mental status, however I plan to hold sedation today, address mental status off sedation, and if the patient continues to do well may check weaning parameters for possible extubation today if the patient does well from the neurological perspective. Her labs today showed leukocytosis with WBC of 19.67 hemoglobin 9.1. Liver enzymes are elevated. Her electrolytes are normal bicarb is 17 anion gap is resolved. Renal profile is no rmal. Patient was seen today on 11/29/2024, remains in the ICU, intubated and mechanically ventilated, on assist-control rate of 16 tidal volume 450 FiO2 30% and PEEP of 5 ABG showed a pO2 of 131 pCO2 31 pH of 7.35. Patient is now receiving IV fluid D5 4 5 at 50 cc/h and I changed that to 0.9 normal saline at 100 cc/h. Patient remains encephalopathic, hence I recommended a repeat CT of the head to be done today, neurology is on board. Repeat CT of the brain showed no acute intracranial process, chest x-ray today showed no acute cardiopulmonary disease. Patient does have leukocytosis with WBC count of 23.7 hemoglobin 9.3, basic metabolic profile showed potassium of 5.2 bicarb remains low at 15 anion gap is 10. Liver enzymes remain elevated with total bilirubin of 2.2 AST 688 ALT 339 alkaline phosphatase 260. Will recommend ultrasound of the liver to be done today. Will also order ammonia level as the patient seems to be quite encephalopathic. Patient was evaluated today on 11/30/2024, remains in the ICU, intubated and mechanically ventilated, patient had significant guillermo clinical course over the last 24 hours, patient developed worsening metabolic acidosis requiring bicarb d rip, she developed hypotension requiring norepinephrine which is presently at 0.15 mg/kg/min hyperglycemia requiring going back on insulin at 7.6 units/h patient required going on sodium bicarb 3 A in 1 L of D5W running at 100 cc/h she required more sedation in addition to her propofol now she is on fentanyl 0.5 mcg/kg/h patient required Tylenol for fever and she had cooling blankets applied last night. Placed on antibiotics, cultures are pending. In addition I am planning to hold her Tapazole as her hepatic panel seems to be getting worse, patient was placed on a higher dose of beta-osbaldo for atrial fibrillation/flutter with rapid ventricular response, ventilator settings were adjusted she is now on assist-control rate of 16 tidal volume 450 FiO2 30% PEEP of 5 ABG showed a pO2 of 114 pCO2 26 pH of 7.21 her flow rate increased to 65. Chest x-ray showed left lower lobe atelectasis, doubt pneumonia. However the patient is empirically on antibiotics considering her fever. Repeat ABG today after ventilator adjustments and after bicarb drip showed a pO2 of 132 pCO2 32 pH of 7.37, WBC count is 20.0 hemoglobin 9.4 platelets are 194, bicarb earlier was 7 with anion gap of 17 BUN 23 creatinine 1.24. Liver enzymes are rising her AST is up to 990 ALT is 471 alkaline phosphatase is 244, ammonia level is higher today from 86 went up as high as 146. Remains on lactulose and rifaximin was added. Patient was seen today on 12/01/2024, remains intubated and sedated on mechanical ventilation, assist-control rate of 16 tidal volume 450 FiO2 30% PEEP of 5 ABG showed a pO2 of 141 pCO2 44 pH of 7.44. Hence her bicarb drip was discontinued. Patient remains on fentanyl at 1 mcg/kg/h remains on insulin at 1.5 units/h remains on vital AF at 57 cc/h. Antibiotics flaherty she is on cefepime and vancomycin patient is also receiving lactulose and rifaximin for her elevated ammonia level remains in the 80s today. Significantly improved compared to yesterday, patient is having significant amount of diarrhea, and her potassium has gone down significantly mostly because of the fact that she is producing significant amount of loose stools, plus the patient is receiving bicarb and receiving insulin at the same time. Potassium is as low as 1.4 today, and that being addressed accordingly. Sodium is 158, and her IV fluid was changed to D5W at 75 cc/h. Her liver enzymes are on the rise, Tapazole presently on hold, eventually she needs to go back on Tapazole, but I am waiting to see slight improvement in her liver profile. If the patient continues to have worsening in her liver profile, may have to be seen by GI we have no GI coverage today, or should consider sending the patient to a tertiary care center. Sputum is showing presumptive Staph aureus. Chest x-ray showed minimal left lower lobe atelectasis, doubt pneumonia. Patient is still spiking fevers, and she is empirically on cefepime and vancomycin. Blood cultures are negative. Objective - Vital Signs Vital signs: Vital Signs Temp 99.1 F 12/01/24 08:00 Pulse 116 H 12/01/24 09:30 Resp 16 12/01/24 09:30 BP 136/53 12/01/24 07:30 Pulse Ox 95 12/01/24 09:30 FiO2 30 12/01/24 07:55 Intake & Output 11/30/24 12/01/24 12/01/24 18:59 06:59 18:59 Intake Total 2967.550 2326.241 119.653 Output Total 1200 3350 300 Balance 1767.550 -1023.759 -180.347 Weight 75.6 kg Intake: IV 2007 2061 31 0.9 ART LINE PRESSURE BAG 33 36 6 Cefepime 2 gm In Dextrose 100 150 5% in Water 100 ml @ 25 mls/hr IVPB Q12H PENDING SALE TO [facility] Rx#: [id number] Dextrose 5% in Water 1, 1100 1250 000 ml @ 50 mls/hr IV . Q23H FCO with Sodium Bicarb (1 Meq/ml) 150 ml Rx#:[id number] Sodium Chloride 0.9% 1, 275 125 25 000 ml @ 25 mls/hr IV . Q24H PENDING SALE TO [facility] Rx#:[id number] Vancomycin 1,500 mg In 500 501 Sodium Chloride 0.9% 500 ml 500 ml @ 167 mls/hr IVPB ONCE ONE Rx#: [id number] Intake, IV Titration 499.550 64.241 1.653 Amount Insulin Regular 100 unit 54.852 46.341 1.653 In Sodium Chloride 0.9% 100 ml @ 0.1 UNITS/KG/HR 7.636 mls/hr IV .[id number] PENDING SALE TO [facility] Rx#:[id number] Norepinephrine 4 mg In 365.938 Sodium Chloride 0.9% 250 ml @ 0.03 MCG/KG/MIN 8. 184 mls/hr IV .Q24H PENDING SALE TO [facility] Rx#:[id number] fentaNYL (PF). 1,000 mcg 78.760 17.900 In Sodium Chloride 0.9% 80 ml @ 0.5 MCG/KG/HR 3. 58 mls/hr IV .Q24H PENDING SALE TO [facility] Rx #:[id number] Tube Feeding 370 200 57 Other 90 30 Output: Urine 1200 1550 100 Stool 1800 200 Other: Voiding Method Indwelling Catheter Indwelling Catheter ABP, PAP, CO, CI - Last Documented Arterial Blood Pressure 122/51 - Exam General: Revealed a 44-year-old female intubated mechanically ventilated, sedated, mostly on fentanyl off propofol today. Derm: warm, dry, intact Head: atraumatic, normocephalic, symmetric, endotracheal tube is intact. Orogastric tube and endotracheal tube are intact Eyes: EOMI, anicteric sclera Mouth: no lip lesion, dry mucus membranes Cardiovascular: Tachycardic, no murmur, no S3 gallop, patient is not sinus t achycardia today. Lungs: Diminished breath sound bilaterally no rhonchi no wheezes Abdominal: soft, diffuse nonspecific tenderness to palpataion, no appreciable organomegaly Extremities: No clubbing edema or cyanosis Neuro: Could not assess, sedated, on fentanyl. Psych: Could not assess - Labs CBC & Chem 7: 12/01/24 03:15 12/01/24 08:15 Labs: Abnormal Lab Results - Last 24 Hours (Table) 11/30/24 11/30/24 11/30/24 Range/Units 11:02 12:26 13:25 WBC (4.50-10.00) 10*3/uL RBC (4.10-5.20) 10*6/uL Hgb (12.0-15.0) g/dL Hct (37.2-46.3) % MPV (9.5-12.2) fL Immature Gran # (0.00-0.04) 10*3/uL Neutrophils # (1.80-7.70) 10*3/uL Eosinophils # (0.04-0.35) 10*3/uL PT (10.0-12.5) sec INR (<1.2) ABG pO2 (83-108) mmHg ABG HCO3 (21-25) mmol/L ABG Total CO2 (19-24) mmol/L ABG O2 Saturation (94-97) % Hemoglobin (11.4-16.0) gm/dL Sodium (137-145) mmol/L Potassium (3.5-5.1) mmol/L Chloride (98-107) mmol/L Carbon Dioxide (22-30) mmol/L BUN (7-17) mg/dL Glucose (74-99) mg/dL POC Glucose (mg/dL) 217 H 164 H 142 H (70-110) mg/dL Calcium (8.4-10.2) mg/dL Total Bilirubin (0.2-1.3) mg/dL AST (14-36) U/L ALT (4-34) U/L Alkaline Phosphatase (38-126) U/L Ammonia (<30) umol/L Total Protein (6.3-8.2) g/dL Albumin (3.5-5.0) g/dL 11/30/24 11/30/24 11/30/24 Range/Units 14:21 15:01 16:08 WBC (4.50-10.00) 10*3/uL RBC (4.10-5.20) 10*6/uL Hgb (12.0-15.0) g/dL Hct (37.2-46.3) % MPV (9.5-12.2) fL Immature Gran # (0.00-0.04) 10*3/uL Neutrophils # (1.80-7.70) 10*3/uL Eosinophils # (0.04-0.35) 10*3/uL PT (10.0-12.5) sec INR (<1.2) ABG pO2 (83-108) mmHg ABG HCO3 (21-25) mmol/L ABG Total CO2 (19-24) mmol/L ABG O2 Saturation (94-97) % Hemoglobin (11.4-16.0) gm/dL Sodium (137-145) mmol/L Potassium (3.5-5.1) mmol/L Chloride (98-107) mmol/L Carbon Dioxide (22-30) mmol/L BUN (7-17) mg/dL Glucose (74-99) mg/dL POC Glucose (mg/dL) 126 H 125 H 157 H (70-110) mg/dL Calcium (8.4-10.2) mg/dL Total Bilirubin (0.2-1.3) mg/dL AST (14-36) U/L ALT (4-34) U/L Alkaline Phosphatase (38-126) U/L Ammonia (<30) umol/L Total Protein (6.3-8.2) g/dL Albumin (3.5-5.0) g/dL 11/30/24 11/30/24 11/30/24 Range/Units 17:10 18:02 19:06 WBC (4.50-10.00) 10*3/uL RBC (4.10-5.20) 10*6/uL Hgb (12.0-15.0) g/dL Hct (37.2-46.3) % MPV (9.5-12.2) fL Immature Gran # (0.00-0.04) 10*3/uL Neutrophils # (1.80-7.70) 10*3/uL Eosinophils # (0.04-0.35) 10*3/uL PT (10.0-12.5) sec INR (<1.2) ABG pO2 (83-108) mmHg ABG HCO3 (21-25) mmol/L ABG Total CO2 (19-24) mmol/L ABG O2 Saturation (94-97) % Hemoglobin (11.4-16.0) gm/dL Sodium (137-145) mmol/L Potassium (3.5-5.1) mmol/L Chloride (98-107) mmol/L Carbon Dioxide (22-30) mmol/L BUN (7-17) mg/dL Glucose (74-99) mg/dL POC Glucose (mg/dL) 181 H 212 H 235 H (70-110) mg/dL Calcium (8.4-10.2) mg/dL Total Bilirubin (0.2-1.3) mg/dL AST (14-36) U/L ALT (4-34) U/L Alkaline Phosphatase (38-126) U/L Ammonia (<30) umol/L Total Protein (6.3-8.2) g/dL Albumin (3.5-5.0) g/dL 11/30/24 11/30/24 11/30/24 Range/Units 20:36 21:54 23:34 WBC (4.50-10.00) 10*3/uL RBC (4.10-5.20) 10*6/uL Hgb (12.0-15.0) g/dL Hct (37.2-46.3) % MPV (9.5-12.2) fL Immature Gran # (0.00-0.04) 10*3/uL Neutrophils # (1.80-7.70) 10*3/uL Eosinophils # (0.04-0.35) 10*3/uL PT (10.0-12.5) sec INR (<1.2) ABG pO2 (83-108) mmHg ABG HCO3 (21-25) mmol/L ABG Total CO2 (19-24) mmol/L ABG O2 Saturation (94-97) % Hemoglobin (11.4-16.0) gm/dL Sodium (137-145) mmol/L Potassium (3.5-5.1) mmol/L Chloride (98-107) mmol/L Carbon Dioxide (22-30) mmol/L BUN (7-17) mg/dL Glucose (74-99) mg/dL POC Glucose (mg/dL) 289 H 304 H 328 H (70-110) mg/dL Calcium (8.4-10.2) mg/dL Total Bilirubin (0.2-1.3) mg/dL AST (14-36) U/L ALT (4-34) U/L Alkaline Phosphatase (38-126) U/L Ammonia (<30) umol/L Total Protein (6.3-8.2) g/dL Albumin (3.5-5.0) g/dL 12/01/24 12/01/24 12/01/24 Range/Units 00:13 01:14 02:07 WBC (4.50-10.00) 10*3/uL RBC (4.10-5.20) 10*6/uL Hgb (12.0-15.0) g/dL Hct (37.2-46.3) % MPV (9.5-12.2) fL Immature Gran # (0.00-0.04) 10*3/uL Neutrophils # (1.80-7.70) 10*3/uL Eosinophils # (0.04-0.35) 10*3/uL PT (10.0-12.5) sec INR (<1.2) ABG pO2 (83-108) mmHg ABG HCO3 (21-25) mmol/L ABG Total CO2 (19-24) mmol/L ABG O2 Saturation (94-97) % Hemoglobin (11.4-16.0) gm/dL Sodium (137-145) mmol/L Potassium (3.5-5.1) mmol/L Chloride (98-107) mmol/L Carbon Dioxide (22-30) mmol/L BUN (7-17) mg/dL Glucose (74-99) mg/dL POC Glucose (mg/dL) 317 H 271 H 231 H (70-110) mg/dL Calcium (8.4-10.2) mg/dL Total Bilirubin (0.2-1.3) mg/dL AST (14-36) U/L ALT (4-34) U/L Alkaline Phosphatase (38-126) U/L Ammonia (<30) umol/L Total Protein (6.3-8.2) g/dL Albumin (3.5-5.0) g/dL 12/01/24 12/01/24 12/01/24 Range/Units 03:09 03:15 03:30 WBC 16.92 H (4.50-10.00) 10*3/uL RBC 3.36 L (4.10-5.20) 10*6/uL Hgb 9.3 L (12.0-15.0) g/dL Hct 28.4 L (37.2-46.3) % MPV 12.6 H (9.5-12.2) fL Immature Gran # 0.08 H (0.00-0.04) 10*3/uL Neutrophils # 14.48 H (1.80-7.70) 10*3/uL Eosinophils # 0.00 L (0.04-0.35) 10*3/uL PT (10.0-12.5) sec INR (<1.2) ABG pO2 (83-108) mmHg ABG HCO3 (21-25) mmol/L ABG Total CO2 (19-24) mmol/L ABG O2 Saturation (94-97) % Hemoglobin (11.4-16.0) gm/dL Sodium (137-145) mmol/L Potassium (3.5-5.1) mmol/L Chloride (98-107) mmol/L Carbon Dioxide (22-30) mmol/L BUN (7-17) mg/dL Glucose (74-99) mg/dL POC Glucose (mg/dL) 181 H (70-110) mg/dL Calcium (8.4-10.2) mg/dL Total Bilirubin (0.2-1.3) mg/dL AST (14-36) U/L ALT (4-34) U/L Alkaline Phosphatase (38-126) U/L Ammonia 81 H (<30) umol/L Total Protein (6.3-8.2) g/dL Albumin (3.5-5.0) g/dL 12/01/24 12/01/24 12/01/24 Range/Units 04:45 05:51 08:04 WBC (4.50-10.00) 10*3/uL RBC (4.10-5.20) 10*6/uL Hgb (12.0-15.0) g/dL Hct (37.2-46.3) % MPV (9.5-12.2) fL Immature Gran # (0.00-0.04) 10*3/uL Neutrophils # (1.80-7.70) 10*3/uL Eosinophils # (0.04-0.35) 10*3/uL PT (10.0-12.5) sec INR (<1.2) ABG pO2 141 H (83-108) mmHg ABG HCO3 30 H (21-25) mmol/L ABG Total CO2 31 H (19-24) mmol/L ABG O2 Saturation 99.8 H (94-97) % Hemoglobin 9.7 L (11.4-16.0) gm/dL Sodium 158 H (137-145) mmol/L Potassium 1.4 L* (3.5-5.1) mmol/L Chloride 124 H (98-107) mmol/L Carbon Dioxide 32 H (22-30) mmol/L BUN 28 H (7-17) mg/dL Glucose 111 H (74-99) mg/dL POC Glucose (mg/dL) 146 H (70-110) mg/dL Calcium 8.3 L (8.4-10.2) mg/dL Total Bilirubin 2.6 H (0.2-1.3) mg/dL AST 2076 H (14-36) U/L ALT 908 H (4-34) U/L Alkaline Phosphatase 204 H (38-126) U/L Ammonia (<30) umol/L Total Protein 4.8 L (6.3-8.2) g/dL Albumin 1.9 L (3.5-5.0) g/dL 12/01/24 12/01/24 12/01/24 Range/Units 08:15 08:40 09:04 WBC (4.50-10.00) 10*3/uL RBC (4.10-5.20) 10*6/uL Hgb (12.0-15.0) g/dL Hct (37.2-46.3) % MPV (9.5-12.2) fL Immature Gran # (0.00-0.04) 10*3/uL Neutrophils # (1.80-7.70) 10*3/uL Eosinophils # (0.04-0.35) 10*3/uL PT 44.4 H (10.0-12.5) sec INR 4.5 H (<1.2) ABG pO2 (83-108) mmHg ABG HCO3 (21-25) mmol/L ABG Total CO2 (19-24) mmol/L ABG O2 Saturation (94-97) % Hemoglobin (11.4-16.0) gm/dL Sodium (137-145) mmol/L Potassium 2.3 L* (3.5-5.1) mmol/L Chloride (98-107) mmol/L Carbon Dioxide (22-30) mmol/L BUN (7-17) mg/dL Glucose (74-99) mg/dL POC Glucose (mg/dL) 162 H (70-110) mg/dL Calcium (8.4-10.2) mg/dL Total Bilirubin (0.2-1.3) mg/dL AST (14-36) U/L ALT (4-34) U/L Alkaline Phosphatase (38-126) U/L Ammonia (<30) umol/L Total Protein (6.3-8.2) g/dL Albumin (3.5-5.0) g/dL Microbiology - Last 24 Hours (Table) 11/28/24 19:34 Blood Culture - Preliminary Blood 11/29/24 08:45 Gram Stain - Preliminary Sputum Sputum Culture - Preliminary Presumptive Staph aureus Assessment and Plan Assessment: Impression: Acute hypoxic respiratory failure secondary to hyperosmolar state and hyperglycemia with acute metabolic encephalopathy Acute hyperglycemia with hyper osmolar state Acute metabolic encephalopathy secondary to above Acute hepatic encephalopathy with elevated ammonia level Acute metabolic acidosis/lactic acidosis secondary to above History of mild to moderate aortic stenosis History of diabetes Sinus tachycardia Severe dehydration, on her initial presentation. History of hyperthyroidism on Tapazole, history of Graves' disease, TSH is low, free T4 is slightly elevated, patient is on Tapazole, presently on hold because of her liver enzymes as it is known that Tapazole could cause hepatotoxicity. Paroxysmal atrial fibrillation, presently in sinus tachycardia. History of alpha 1 antitrypsin deficiency MZ disease, may be contributing to her worsening liver enzymes History of gastroparesis Intermittent fevers, suspect ongoing sepsis and possibly septic shock on her initial presentation were initially required pressors, presently off pressors. Patient remains on broad-spectrum antibiotics. Sputum culture is showing presumptive staph blood cultures are negative. Profound hypokalemia, multifactorial mostly related to her bicarb drip, insulin infusion, lactulose induced diarrhea, Hypernatremia secondary to bicarb infusion and relative water deficit on her initial presentation. Recommendation: Patient remains critically ill Continue to monitor in ICU Aggressive management of hypokalemia and monitor potassium every 2 hours All labs and ABG reviewed today, hypokalemia is being addressed accordingly Vent setting unchanged Continue beta-blockers Continue nutritional support/enteral feeding Continue ventilatory support. Continue lactulose and rifaximin, and monitor ammonia daily DC bicarb drip, continue insulin drip at low-dose for now. Patient is receiving D5W at 75 cc/h Continue to hold Tapazole for now, restart once liver enzymes show improvement Continue GI DVT prophylaxis Continue Xarelto Continue antibiotics empirically Remains extremely quite ill Critical care time is 35 minutes. Will continue to follow Time with Patient: Greater than 30
[2024-12-01 10:54] LABS: African American GFR (CKD) >90 (>60 ml/min/1.73 sqM); Anion Gap 6 mmol/L; Blood Urea Nitrogen 29 mg/dL (7-17); Carbon Dioxide 30 mmol/L (22-30); Chloride 126 mmol/L (98-107); Glucose 252 mg/dL (74-99); Non-African American GFR(CKD) >90 (>60 ml/min/1.73 sqM)
[2024-12-01 10:56] LABS: Glucose,Whole Blood 266 mg/dL (70-110)
[2024-12-01 11:00] LABS: Potassium 2.6 mmol/L (3.5-5.1); Sodium 162 mmol/L (137-145)
[2024-12-01 11:20] LABS: Glucose,Whole Blood 266 mg/dL (70-110)
[2024-12-01] MEDS: PHYTONADIONE 5 MG in SODIUM CHLORIDE 0.9% 50 ML IVPB STA (11:27)
[2024-12-01 12:07] LABS: Glucose,Whole Blood 308 mg/dL (70-110)
[2024-12-01 13:08] LABS: Glucose,Whole Blood 316 mg/dL (70-110)
[2024-12-01 14:11] LABS: Glucose,Whole Blood 333 mg/dL (70-110)
[2024-12-01 14:52] LABS: African American GFR (CKD) >90 (>60 ml/min/1.73 sqM); Anion Gap 1 mmol/L; Blood Urea Nitrogen 31 mg/dL (7-17); Calcium 8.3 mg/dL (8.4-10.2); Carbon Dioxide 32 mmol/L (22-30); Chloride 129 mmol/L (98-107); Glucose 309 mg/dL (74-99); Non-African American GFR(CKD) >90 (>60 ml/min/1.73 sqM); Potassium 3.4 mmol/L (3.5-5.1)
[2024-12-01 14:55] LABS: Sodium 162 mmol/L (137-145)
[2024-12-01 15:25] LABS: Glucose,Whole Blood 266 mg/dL (70-110)
[2024-12-01 16:19] LABS: Glucose,Whole Blood 244 mg/dL (70-110)
[2024-12-01 16:54] LABS: Glucose,Whole Blood 202 mg/dL (70-110)
[2024-12-01 18:20] LABS: Glucose,Whole Blood 147 mg/dL (70-110)
[2024-12-01 18:51] LABS: African American GFR (CKD) >90 (>60 ml/min/1.73 sqM); Anion Gap -2 mmol/L; Blood Urea Nitrogen 31 mg/dL (7-17); Calcium 8.3 mg/dL (8.4-10.2); Carbon Dioxide 35 mmol/L (22-30); Chloride 128 mmol/L (98-107); Glucose 144 mg/dL (74-99); Non-African American GFR(CKD) >90 (>60 ml/min/1.73 sqM); Potassium 4.8 mmol/L (3.5-5.1)
[2024-12-01 19:10] LABS: Glucose,Whole Blood 130 mg/dL (70-110)
[2024-12-01 19:12] LABS: Sodium 161 mmol/L (137-145)
--- NOTE | 2024-12-01 19:36 | XR ---
EXAMINATION TYPE: XR chest 1V portable DATE OF EXAM: 12/01/2024 7:09 PM COMPARISON: None. CLINICAL INDICATION: Female, 44 years old with history of confirm ogt placement, TECHNIQUE: XR chest 1V portable view(s) obtained. FINDINGS: The heart size is normal. The pulmonary vasculature is normal. There is a left lower lobe infiltrate. Endotracheal tube tip is 7.4 cm above the mae. Nasogastric tube tip is within the abdomen. IMPRESSION: 1. Developing left lower lobe infiltrate. 2. Lines and catheters discussed above [facility], , 12/01/2024 7:34 PM
[2024-12-01 19:54] LABS: Glucose,Whole Blood 143 mg/dL (70-110)
[2024-12-01 20:32] LABS: Glucose,Whole Blood 160 mg/dL (70-110)
--- NOTE | 2024-12-01 21:10 | P.PN ---
Subjective Progress Note Date: 12/01/24 Principal diagnosis: Reason for follow-up is pneumonia Patient is a 44-year-old female with a past medical history significant for atrial fibrillation hypothyroidism insulin-dependent diabetes mellitus on insulin pump patient has been brought into the hospital for eval uation of mental status changes on arrival with EMS patient was minimally responsive noticed to be in SVT ended up getting intubated admitted to ICU concerning for left lower lobe pneumonia prompting this consultation. On today's evaluation that is 12/01/2024, Patient did have improvement in her fever pattern and is afebrile this morning, the patient remains to be debated on the vent FiO2 is currently at 30% no significant tenderness secretions with 80 Bee the changes reported by the nursing staff. Patient white count is down to 16.92 creatinine is 0.53 liver enzymes elevated sputum is growing Staph aureus blood culture repeat so far pending Objective - Vital Signs Vital signs: Vital Signs Temp 98.8 F 12/01/24 12:00 Pulse 112 H 12/01/24 12:00 Resp 16 12/01/24 12:00 BP 109/59 12/01/24 12:00 Pulse Ox 98 12/01/24 12:00 FiO2 30 12/01/24 12:00 Intake & Output 11/30/24 12/01/24 12/01/24 18:59 06:59 18:59 Intake Total 2967.550 2326.241 1821.017 Output Total 1200 3350 615 Balance 1767.550 -2230.347 8892.017 Weight 75.6 kg Intake: IV 2007 2061 1117 0.9 ART LINE PRESSURE BAG 33 36 18 Cefepime 2 gm In Dextrose 100 150 5% in Water 100 ml @ 25 mls/hr IVPB Q12H [facility] Rx#: [id number] Dextrose 5% in Water 1, 1100 1250 000 ml @ 50 mls/hr IV . Q23H [facility] with Sodium Bicarb (1 Meq/ml) 150 ml Rx#:[id number] Dextrose 5% in Water 1, 300 000 ml @ 75 mls/hr IV . [id number] [facility] with Potassium Chloride 40 meq Rx#:[id number] Phytonadione 5 mg In 50 Sodium Chloride 0.9% 50 ml @ 100 mls/hr IVPB ONCE STA Rx#:[id number] Potassium Chloride 20 meq 200 In Water For Injection 1 100ml.bag @ 50 mls/hr IVPB Q2HR [facility] Rx#: [id number] Sodium Chloride 0.9% 1, 275 125 50 000 ml @ 25 mls/hr IV . Q24H [facility] Rx#:[id number] Vancomycin 1,500 mg In 500 501 500 Sodium Chloride 0.9% 500 ml 500 ml @ 167 mls/hr IVPB ONCE ONE Rx#: [id number] Intake, IV Titration 499.550 64.241 88.017 Amount Insulin Regular 100 unit 54.852 46.341 5.917 In Sodium Chloride 0.9% 100 ml @ 0.1 UNITS/KG/HR 7.636 mls/hr IV .[id number] [facility] Rx#:[id number] Norepinephrine 4 mg In 365.938 Sodium Chloride 0.9% 250 ml @ 0.03 MCG/KG/MIN 8. 184 mls/hr IV .Q24H [facility] Rx#:[id number] fentaNYL (PF). 1,000 mcg 78.760 17.900 82.1 In Sodium Chloride 0.9% 80 ml @ 0.5 MCG/KG/HR 3. 58 mls/hr IV .Q24H [facility] Rx #:[id number] Tube Feeding 370 200 285 Other 90 330 Output: Urine 1200 1550 415 Stool 1800 200 Other: Voiding Method Indwelling Catheter Indwelling Catheter ABP, PAP, CO, CI - Last Documented Arterial Blood Pressure 108/41 - Exam GENERAL DESCRIPTION: Middle-age female intubated on the vent RESPIRATORY SYSTEM: Unlabored breathing , decreased breath sounds at bases HEART: S1 S2 regular rate and rhythm , ABDOMEN: Soft , no tenderness EXTREMITIES: No edema feet - Labs CBC & Chem 7: 12/01/24 03:15 12/01/24 19:55 Labs: Abnormal Lab Results - Last 24 Hours (Table) 11/30/24 11/30/24 11/30/24 Range/Units 13:25 14:21 15:01 WBC (4.50-10.00) 10*3/uL RBC (4.10-5.20) 10*6/uL Hgb (12.0-15.0) g/dL Hct (37.2-46.3) % MPV (9.5-12.2) fL Immature Gran # (0.00-0.04) 10*3/uL Neutrophils # (1.80-7.70) 10*3/uL Eosinophils # (0.04-0.35) 10*3/uL PT (10.0-12.5) sec INR (<1.2) ABG pO2 (83-108) mmHg ABG HCO3 (21-25) mmol/L ABG Total CO2 (19-24) mmol/L ABG O2 Saturation (94-97) % Hemoglobin (11.4-16.0) gm/dL Sodium (137-145) mmol/L Potassium (3.5-5.1) mmol/L Chloride (98-107) mmol/L Carbon Dioxide (22-30) mmol/L BUN (7-17) mg/dL Glucose (74-99) mg/dL POC Glucose (mg/dL) 142 H 126 H 125 H (70-110) mg/dL Calcium (8.4-10.2) mg/dL Total Bilirubin (0.2-1.3) mg/dL AST (14-36) U/L ALT (4-34) U/L Alkaline Phosphatase (38-126) U/L Ammonia (<30) umol/L Total Protein (6.3-8.2) g/dL Albumin (3.5-5.0) g/dL 11/30/24 11/30/24 11/30/24 Range/Units 16:08 17:10 18:02 WBC (4.50-10.00) 10*3/uL RBC (4.10-5.20) 10*6/uL Hgb (12.0-15.0) g/dL Hct (37.2-46.3) % MPV (9.5-12.2) fL Immature Gran # (0.00-0.04) 10*3/uL Neutrophils # (1.80-7.70) 10*3/uL Eosinophils # (0.04-0.35) 10*3/uL PT (10.0-12.5) sec INR (<1.2) ABG pO2 (83-108) mmHg ABG HCO3 (21-25) mmol/L ABG Total CO2 (19-24) mmol/L ABG O2 Saturation (94-97) % Hemoglobin (11.4-16.0) gm/dL Sodium (137-145) mmol/L Potassium (3.5-5.1) mmol/L Chloride (98-107) mmol/L Carbon Dioxide (22-30) mmol/L BUN (7-17) mg/dL Glucose (74-99) mg/dL POC Glucose (mg/dL) 157 H 181 H 212 H (70-110) mg/dL Calcium (8.4-10.2) mg/dL Total Bilirubin (0.2-1.3) mg/dL AST (14-36) U/L ALT (4-34) U/L Alkaline Phosphatase (38-126) U/L Ammonia (<30) umol/L Total Protein (6.3-8.2) g/dL Albumin (3.5-5.0) g/dL 11/30/24 11/30/24 11/30/24 Range/Units 19:06 20:36 21:54 WBC (4.50-10.00) 10*3/uL RBC (4.10-5.20) 10*6/uL Hgb (12.0-15.0) g/dL Hct (37.2-46.3) % MPV (9.5-12.2) fL Immature Gran # (0.00-0.04) 10*3/uL Neutrophils # (1.80-7.70) 10*3/uL Eosinophils # (0.04-0.35) 10*3/uL PT (10.0-12.5) sec INR (<1.2) ABG pO2 (83-108) mmHg ABG HCO3 (21-25) mmol/L ABG Total CO2 (19-24) mmol/L ABG O2 Saturation (94-97) % Hemoglobin (11.4-16.0) gm/dL Sodium (137-145) mmol/L Potassium (3.5-5.1) mmol/L Chloride (98-107) mmol/L Carbon Dioxide (22-30) mmol/L BUN (7-17) mg/dL Glucose (74-99) mg/dL POC Glucose (mg/dL) 235 H 289 H 304 H (70-110) mg/dL Calcium (8.4-10.2) mg/dL Total Bilirubin (0.2-1.3) mg/dL AST (14-36) U/L ALT (4-34) U/L Alkaline Phosphatase (38-126) U/L Ammonia (<30) umol/L Total Protein (6.3-8.2) g/dL Albumin (3.5-5.0) g/dL 11/30/24 12/01/24 12/01/24 Range/Units 23:34 00:13 01:14 WBC (4.50-10.00) 10*3/uL RBC (4.10-5.20) 10*6/uL Hgb (12.0-15.0) g/dL Hct (37.2-46.3) % MPV (9.5-12.2) fL Immature Gran # (0.00-0.04) 10*3/uL Neutrophils # (1.80-7.70) 10*3/uL Eosinophils # (0.04-0.35) 10*3/uL PT (10.0-12.5) sec INR (<1.2) ABG pO2 (83-108) mmHg ABG HCO3 (21-25) mmol/L ABG Total CO2 (19-24) mmol/L ABG O2 Saturation (94-97) % Hemoglobin (11.4-16.0) gm/dL Sodium (137-145) mmol/L Potassium (3.5-5.1) mmol/L Chloride (98-107) mmol/L Carbon Dioxide (22-30) mmol/L BUN (7-17) mg/dL Glucose (74-99) mg/dL POC Glucose (mg/dL) 328 H 317 H 271 H (70-110) mg/dL Calcium (8.4-10.2) mg/dL Total Bilirubin (0.2-1.3) mg/dL AST (14-36) U/L ALT (4-34) U/L Alkaline Phosphatase (38-126) U/L Ammonia (<30) umol/L Total Protein (6.3-8.2) g/dL Albumin (3.5-5.0) g/dL 12/01/24 12/01/24 12/01/24 Range/Units 02:07 03:09 03:15 WBC 16.92 H (4.50-10.00) 10*3/uL RBC 3.36 L (4.10-5.20) 10*6/uL Hgb 9.3 L (12.0-15.0) g/dL Hct 28.4 L (37.2-46.3) % MPV 12.6 H (9.5-12.2) fL Immature Gran # 0.08 H (0.00-0.04) 10*3/uL Neutrophils # 14.48 H (1.80-7.70) 10*3/uL Eosinophils # 0.00 L (0.04-0.35) 10*3/uL PT (10.0-12.5) sec INR (<1.2) ABG pO2 (83-108) mmHg ABG HCO3 (21-25) mmol/L ABG Total CO2 (19-24) mmol/L ABG O2 Saturation (94-97) % Hemoglobin (11.4-16.0) gm/dL Sodium (137-145) mmol/L Potassium (3.5-5.1) mmol/L Chloride (98-107) mmol/L Carbon Dioxide (22-30) mmol/L BUN (7-17) mg/dL Glucose (74-99) mg/dL POC Glucose (mg/dL) 231 H 181 H (70-110) mg/dL Calcium (8.4-10.2) mg/dL Total Bilirubin (0.2-1.3) mg/dL AST (14-36) U/L ALT (4-34) U/L Alkaline Phosphatase (38-126) U/L Ammonia (<30) umol/L Total Protein (6.3-8.2) g/dL Albumin (3.5-5.0) g/dL 12/01/24 12/01/24 12/01/24 Range/Units 03:30 04:45 05:51 WBC (4.50-10.00) 10*3/uL RBC (4.10-5.20) 10*6/uL Hgb (12.0-15.0) g/dL Hct (37.2-46.3) % MPV (9.5-12.2) fL Immature Gran # (0.00-0.04) 10*3/uL Neutrophils # (1.80-7.70) 10*3/uL Eosinophils # (0.04-0.35) 10*3/uL PT (10.0-12.5) sec INR (<1.2) ABG pO2 141 H (83-108) mmHg ABG HCO3 30 H (21-25) mmol/L ABG Total CO2 31 H (19-24) mmol/L ABG O2 Saturation 99.8 H (94-97) % Hemoglobin 9.7 L (11.4-16.0) gm/dL Sodium 158 H (137-145) mmol/L Potassium 1.4 L* (3.5-5.1) mmol/L Chloride 124 H (98-107) mmol/L Carbon Dioxide 32 H (22-30) mmol/L BUN 28 H (7-17) mg/dL Glucose 111 H (74-99) mg/dL POC Glucose (mg/dL) (70-110) mg/dL Calcium 8.3 L (8.4-10.2) mg/dL Total Bilirubin 2.6 H (0.2-1.3) mg/dL AST 2076 H (14-36) U/L ALT 908 H (4-34) U/L Alkaline Phosphatase 204 H (38-126) U/L Ammonia 81 H (<30) umol/L Total Protein 4.8 L (6.3-8.2) g/dL Albumin 1.9 L (3.5-5.0) g/dL 12/01/24 12/01/24 12/01/24 Range/Units 08:04 08:15 08:40 WBC (4.50-10.00) 10*3/uL RBC (4.10-5.20) 10*6/uL Hgb (12.0-15.0) g/dL Hct (37.2-46.3) % MPV (9.5-12.2) fL Immature Gran # (0.00-0.04) 10*3/uL Neutrophils # (1.80-7.70) 10*3/uL Eosinophils # (0.04-0.35) 10*3/uL PT 44.4 H (10.0-12.5) sec INR 4.5 H (<1.2) ABG pO2 (83-108) mmHg ABG HCO3 (21-25) mmol/L ABG Total CO2 (19-24) mmol/L ABG O2 Saturation (94-97) % Hemoglobin (11.4-16.0) gm/dL Sodium (137-145) mmol/L Potassium 2.3 L* (3.5-5.1) mmol/L Chloride (98-107) mmol/L Carbon Dioxide (22-30) mmol/L BUN (7-17) mg/dL Glucose (74-99) mg/dL POC Glucose (mg/dL) 146 H (70-110) mg/dL Calcium (8.4-10.2) mg/dL Total Bilirubin (0.2-1.3) mg/dL AST (14-36) U/L ALT (4-34) U/L Alkaline Phosphatase (38-126) U/L Ammonia (<30) umol/L Total Protein (6.3-8.2) g/dL Albumin (3.5-5.0) g/dL 12/01/24 12/01/24 12/01/24 Range/Units 09:04 10:26 10:54 WBC (4.50-10.00) 10*3/uL RBC (4.10-5.20) 10*6/uL Hgb (12.0-15.0) g/dL Hct (37.2-46.3) % MPV (9.5-12.2) fL Immature Gran # (0.00-0.04) 10*3/uL Neutrophils # (1.80-7.70) 10*3/uL Eosinophils # (0.04-0.35) 10*3/uL PT (10.0-12.5) sec INR (<1.2) ABG pO2 (83-108) mmHg ABG HCO3 (21-25) mmol/L ABG Total CO2 (19-24) mmol/L ABG O2 Saturation (94-97) % Hemoglobin (11.4-16.0) gm/dL Sodium 162 H* (137-145) mmol/L Potassium 2.6 L* (3.5-5.1) mmol/L Chloride 126 H (98-107) mmol/L Carbon Dioxide (22-30) mmol/L BUN 29 H (7-17) mg/dL Glucose 252 H (74-99) mg/dL POC Glucose (mg/dL) 162 H 266 H (70-110) mg/dL Calcium 8.0 L (8.4-10.2) mg/dL Total Bilirubin (0.2-1.3) mg/dL AST (14-36) U/L ALT (4-34) U/L Alkaline Phosphatase (38-126) U/L Ammonia (<30) umol/L Total Protein (6.3-8.2) g/dL Albumin (3.5-5.0) g/dL 12/01/24 12/01/24 Range/Units 11:18 12:05 WBC (4.50-10.00) 10*3/uL RBC (4.10-5.20) 10*6/uL Hgb (12.0-15.0) g/dL Hct (37.2-46.3) % MPV (9.5-12.2) fL Immature Gran # (0.00-0.04) 10*3/uL Neutrophils # (1.80-7.70) 10*3/uL Eosinophils # (0.04-0.35) 10*3/uL PT (10.0-12.5) sec INR (<1.2) ABG pO2 (83-108) mmHg ABG HCO3 (21-25) mmol/L ABG Total CO2 (19-24) mmol/L ABG O2 Saturation (94-97) % Hemoglobin (11.4-16.0) gm/dL Sodium (137-145) mmol/L Potassium (3.5-5.1) mmol/L Chloride (98-107) mmol/L Carbon Dioxide (22-30) mmol/L BUN (7-17) mg/dL Glucose (74-99) mg/dL POC Glucose (mg/dL) 266 H 308 H (70-110) mg/dL Calcium (8.4-10.2) mg/dL Total Bilirubin (0.2-1.3) mg/dL AST (14-36) U/L ALT (4-34) U/L Alkaline Phosphatase (38-126) U/L Ammonia (<30) umol/L Total Protein (6.3-8.2) g/dL Albumin (3.5-5.0) g/dL Microbiology - Last 24 Hours (Table) 11/28/24 19:34 Blood Culture - Preliminary Blood 11/29/24 08:45 Gram Stain - Preliminary Sputum Sputum Culture - Preliminary Presumptive Staph aureus Assessment and Plan (1) Pneumonia Current Visit: Yes Status: Acute Code(s): J18.9 - PNEUMONIA, UNSPECIFIED ORGANISM SNOMED Code(s): 749952297 (2) Sepsis Current Visit: No Status: Acute Code(s): A41.9 - SEPSIS, UNSPECIFIED ORGANISM SNOMED Code(s): 01370355 Plan: 1patient presented the hospital with sepsis in this patient who did have fever tachycardia elevated white count meeting currently for SIRS/sepsis source is pneumonia in this patient admitted to hospital with decreased level of responsiveness requiring intubation concern for possible aspiration pneumonia 2-blood and sputum culture have been obtained,, blood cultures are pending s putum is growing Staph aureus sensitivities pending 3patient did have improvement in her fever pattern white count is trending down we will continue vancomycin and cefepime while waiting for the culture to finalize Mother at the bedside question answered Dictation was produced using [employer] dictation software. please excuse any grammatical, word or spelling errors. Time with Patient: Less than 30
[2024-12-01 21:51] LABS: Glucose,Whole Blood 233 mg/dL (70-110)
[2024-12-01 22:50] LABS: Glucose,Whole Blood 280 mg/dL (70-110)
[2024-12-01 22:52] LABS: African American GFR (CKD) >90 (>60 ml/min/1.73 sqM); Anion Gap 2 mmol/L; Blood Urea Nitrogen 30 mg/dL (7-17); Calcium 8.1 mg/dL (8.4-10.2); Carbon Dioxide 33 mmol/L (22-30); Chloride 127 mmol/L (98-107); Glucose 242 mg/dL (74-99); Non-African American GFR(CKD) >90 (>60 ml/min/1.73 sqM); Potassium 5.8 mmol/L (3.5-5.1)
[2024-12-01 22:54] LABS: Sodium 162 mmol/L (137-145)
[2024-12-01 23:59] LABS: Glucose,Whole Blood 307 mg/dL (70-110)
[2024-12-02] MEDS: DEXTROSE 5% IN WATER 1,000 ML IV ONE (00:02)
--- NOTE | 2024-12-02 00:33 | PN ---
PROGRESS NOTE Discussed with [facility] about transferring the patient to accept her. Waiting for them to get final date of gather and transfer her. They accepted the transfer due to elevated liver enzymes. We have no GI physician or staff that is on-call. Today, she had a sodium of 161, which is being fixed with D5 0.5 normal saline and fluids. CO2 is 35, BUN 31, creatinine 0.53, calcium is 8.3. Sugars are 100s to low 200s. She has Staph aureus on the sputum collection. She has been in the high 90s. Blood pressure is 100 to 125s over 50 to 60s, respiratory rate 16 to 18. Labs show bilirubin went from 3.3 to 2.7. AST to ALT has went up to 2009 and 900 respectively. Because of the history of possibly some autoimmune hepatitis and low albumin levels, she is high risk for , so we are going to arrange for her to be transferred. Continue on antibiotics for sepsis, secondary to left lower lobe pneumonia, acute liver inflammation, acute respiratory distress secondary to sepsis and pneumonia. Fentanyl was given due to her heart rate and her breathing gets really fast, so we are going to try to wean her off the vent. Continue with treatment for pneumonia. Remains on cefepime and vancomycin for sepsis. Prognosis is guarded. Wait for further transfer to [facility] and they accepted her as mentioned above. MMODL / IJN: [id number] /
[2024-12-02 01:19] LABS: Glucose,Whole Blood 325 mg/dL (70-110)
[2024-12-02 01:48] LABS: Glucose,Whole Blood 341 mg/dL (70-110)
[2024-12-02] MEDS: SODIUM ZIRCONIUM CYCLOSILICATE 10 GM PACKET PO ONE (02:10)
[2024-12-02] MEDS: CALCIUM GLUCONATE IN NACL 1 GM in SALINE 1 100ML.BAG IVPB ONE (02:10)
[2024-12-02 02:23] LABS: African American GFR (CKD) >90 (>60 ml/min/1.73 sqM); Anion Gap 5 mmol/L; Blood Urea Nitrogen 29 mg/dL (7-17); Calcium 7.9 mg/dL (8.4-10.2); Carbon Dioxide 30 mmol/L (22-30); Chloride 124 mmol/L (98-107); Glucose 336 mg/dL (74-99); Non-African American GFR(CKD) >90 (>60 ml/min/1.73 sqM); Potassium 5.3 mmol/L (3.5-5.1); Sodium 159 mmol/L (137-145)
[2024-12-02] MEDS: ALBUTEROL NEB (CONC) 2.5 MG/0.5 ML INHALATION ONE (02:41)
[2024-12-02 02:52] LABS: Glucose,Whole Blood 325 mg/dL (70-110)
[2024-12-02 03:56] LABS: Glucose,Whole Blood 346 mg/dL (70-110)
[2024-12-02 04:23] LABS: ABG Base Excess 1.2 mmol/L; ABG HCO3 27 mmol/L (21-25); ABG Oxygen Saturation 99.5 % (94-97); ABG PCO2 44 mmHg (35-45); ABG PH 7.39 (7.35-7.45); ABG PO2 121 mmHg (83-108); ABG TCO2 28 mmol/L (19-24)
[2024-12-02 04:25] LABS: Allen Test Performed? no
[2024-12-02 04:53] LABS: Glucose,Whole Blood 316 mg/dL (70-110)
[2024-12-02 05:46] LABS: Glucose,Whole Blood 271 mg/dL (70-110)
[2024-12-02 06:01] LABS: Basophils # (A) 0.05 10*3/uL (0.00-0.10); Basophils % (A) 0.3 %; Eosinophils # (A) 0.05 10*3/uL (0.04-0.35); Eosinophils % (A) 0.3 %; HCT 25.5 % (37.2-46.3); HGB 8.2 g/dL (12.0-15.0); Lymphocytes # (A) 2.64 10*3/uL (0.90-5.00); Lymphocytes % (A) 13.4 %; MCH 27.7 pg (27.0-32.0); MCHC 32.2 g/dL (32.0-37.0); MCV 86.1 fL (80.0-97.0); Monocytes # (A) 1.19 10*3/uL (0.20-1.00); Monocytes % (A) 6.1 %; Neutrophils # (A) 15.58 10*3/uL (1.80-7.70); Neutrophils % (A) 79.3 %; Platelet Count 122 10*3/uL (140-440); RBC 2.96 10*6/uL (4.10-5.20); RDW 16.9 % (11.5-14.5); WBC 19.63 10*3/uL (4.50-10.00)
[2024-12-02 06:26] LABS: African American GFR (CKD) >90 (>60 ml/min/1.73 sqM); Albumin 2.1 g/dL (3.5-5.0); Alkaline Phosphatase 224 U/L (38-126); Anion Gap 8 mmol/L; Blood Urea Nitrogen 27 mg/dL (7-17); Calcium 8.4 mg/dL (8.4-10.2); Carbon Dioxide 26 mmol/L (22-30); Chloride 127 mmol/L (98-107); Glucose 257 mg/dL (74-99); Magnesium 1.9 mg/dL (1.6-2.3); Non-African American GFR(CKD) >90 (>60 ml/min/1.73 sqM)
[2024-12-02 06:52] LABS: Glucose,Whole Blood 220 mg/dL (70-110)
[2024-12-02 07:15] LABS: ALT 898 U/L (4-34); Potassium 2.7 mmol/L (3.5-5.1); Sodium 161 mmol/L (137-145)
[2024-12-02 07:33] LABS: AST 2197 U/L (14-36)
[2024-12-02] MEDS: POTASSIUM BICARBONATE/CIT AC 20 MEQ TABLET.EFF NG-TUBE SCH (08:08)
--- NOTE | 2024-12-02 08:17 | XR ---
EXAMINATION TYPE: XR chest 1V portable DATE OF EXAM: 12/02/2024 4:28 AM COMPARISON: Multiple radiographs, with the most recent on 12/01/2024 TECHNIQUE: XR chest 1V portable Portable AP radiograph of the chest. CLINICAL INDICATION:Female, 44 years old with history of Intubation; FINDINGS: Lungs/Pleura: No pneumothorax. Blunting of the left costophrenic angle. Similar left basilar airspace opacities. Pulmonary vascularity: Unremarkable. Heart/mediastinum: Cardiomediastinal silhouette is enlarged and stable. Musculoskeletal: No acute osseous pathology. Other findings: None Lines/Tubes: Endotracheal tube with distal tip 3.8 cm above the mae Nasogastric tube with its distal tip and side-port projecting under the diaphragm and projecting over the gastric lumen. IMPRESSION: 1. Similar left basilar airspace opacity suspicious for pneumonia. 2. Similar small left pleural effusion. 3. Stable support tubes. [facility], , 12/02/2024 8:15 AM
[2024-12-02 08:18] LABS: Glucose,Whole Blood 224 mg/dL (70-110)
[2024-12-02 09:16] LABS: Glucose,Whole Blood 182 mg/dL (70-110)
[2024-12-02] MEDS: VANCOMYCIN TROUGH DUE 1 EACH MISC MISCELLANE ONE (09:20)
[2024-12-02] MEDS: DEXTROSE 5% IN WATER 1,000 ML IV SCH (10:22)
[2024-12-02 10:29] LABS: Glucose,Whole Blood 134 mg/dL (70-110)
[2024-12-02 11:43] LABS: Glucose,Whole Blood 143 mg/dL (70-110)
--- NOTE | 2024-12-02 12:31 | P.PN ---
Subjective Progress Note Date: 12/02/24 Acute hyperglycemia with hyperosmolar state and acute metabolic encephalopathy with acute hypoxic respiratory failure requiring intubation mechanical ventilation. This is a 44-year-old female with known history of diabetes, patient had previous episode of DKA back in June of 2024, and she was seen by Dr. Gonzalez on consultation at the time. This time the patient seems to have a similar presentation she was brought into the ER with altered mental status, patient was unresponsive at home, and she was seen by EMS with what seems to be a picture of SVT. Patient did not respond to cardioversion by EMS. Heart rate rate was in the 200 range, patient was brought into the ER, and as soon as she arrived the patient was noted to be in distress, intubated and mechanically ventilated by the ER physician. Workup in the ER included venous blood gas showing a bicarb of 8 and a pH of 6.92, she had blood sugar as high as 600+, lactic acid was as high as 19.9, urinalysis showed no evidence of ketones in the urine. CT of the brain showed no evidence of acute disease except for mild inflammatory changes in the left maxillary sinus and it also showed mild to moderate generalized atrophy. Chest x-ray showed endotracheal tube to be low- lying seems to be at the level just above the mae apparently this was adjusted already by the ER physician based on her initial chest x-ray. Could not obtain any history from the patient as she seems to be obtunded and unresponsive to any stimuli. Has recommended treatment as per DKA protocol, I also recommended CT of the brain to be done which came back nondiagnostic. In the meantime the patient is receiving fluid boluses so far she has received 2-1 /2 L of 0.9 normal saline and I recommended starting the patient on insulin drip. Patient was seen today on 11/28/2024, patient remains in the ICU, we admitted the patient yesterday from the ER. Remains intubated and mechanically ventilated, on assist-control rate 16 tidal volume 450 FiO2 30% and PEEP of 5 ABG showed a pO2 of 191 pCO2 32 pH of 7.32. Patient is on multiple drips including insulin drip at 2.95 units/h propofol at 50 mcg/kg/min Versed at 3 mg/h D5W at 120 cc/h. Patient is sedated, unable to assess mental status, however I plan to hold sedation today, address mental status off sedation, and if the patient continues to do well may check weaning parameters for possible extubation today if the patient does well from the neurological perspective. Her labs today showed leukocytosis with WBC of 19.67 hemoglobin 9.1. Liver enzymes are elevated. Her electrolytes are normal bicarb is 17 anion gap is resolved. Renal profile is normal. Patient was seen today on 11/29/2024, remains in the ICU, intubated and mechanically ventilated, on assist-control rate of 16 tidal volume 450 FiO2 30% and PEEP of 5 ABG showed a pO2 of 131 pCO2 31 pH of 7.35. Patient is now receiving IV fluid D5 4 5 at 50 cc/h and I changed that to 0.9 normal saline at 100 cc/h. Patient remains encephalopathic, hence I recommended a repeat CT of the head to be done today, neurology is on board. Repeat CT of the brain showed no acute intracranial process, chest x-ray today showed no acute cardiopulmonary disease. Patient does have leukocytosis with WBC count of 23.7 hemoglobin 9.3, basic metabolic profile showed potassium of 5.2 bicarb remains low at 15 anion gap is 10. Liver enzymes remain elevated with total bilirubin of 2.2 AST 688 ALT 339 alkaline phosphatase 260. Will recommend ultrasound of the liver to be done today. Will also order ammonia level as the patient seems to be quite e ncephalopathic. Patient was evaluated today on 11/30/2024, remains in the ICU, intubated and mechanically ventilated, patient had significant guillermo clinical course over the last 24 hours, patient developed worsening metabolic acidosis requiring bicarb drip, she developed hypotension requiring norepinephrine which is presently at 0.15 mg/kg/min hyperglycemia requiring going back on insulin at 7.6 units/h patient required going on sodium bicarb 3 A in 1 L of D5W running at 100 cc/h she required more sedation in addition to her propofol now she is on fentanyl 0.5 mcg/kg/h patient required Tylenol for fever and she had cooling blankets applied last night. Placed on antibiotics, cultures are pending. In addition I am planning to hold her Tapazole as her hepatic panel seems to be getting worse, patient was placed on a higher dose of beta-osbaldo for atrial fibrillation/flutter with rapid ventricular response, ventilator settings were adjusted she is now on assist-control rate of 16 tidal volume 450 FiO2 30% PEEP of 5 ABG showed a pO2 of 114 pCO2 26 pH of 7.21 her flow rate increased to 65. Chest x-ray showed left lower lobe atelectasis, doubt pneumonia. However the patient is empirically on antibiotics considering her fever. Repeat ABG today after ventilator adjustments and after bicarb drip showed a pO2 of 132 pCO2 32 pH of 7.37, WBC count is 20.0 hemoglobin 9.4 platelets are 194, bicarb earlier was 7 with anion gap of 17 BUN 23 creatinine 1.24. Liver enzymes are rising her AST is up to 990 ALT is 471 alkaline phosphatase is 244, ammonia level is higher today from 86 went up as high as 146. Remains on lactulose and rifaximin was added. Patient was seen today on 12/01/2024, remains intubated and sedated on mechanical ventilation, assist-control rate of 16 tidal volume 450 FiO2 30% PEEP of 5 ABG showed a pO2 of 141 pCO2 44 pH of 7.44. Hence her bicarb drip was discontinued. Patient remains on fentanyl at 1 mcg/kg/h remains on insulin at 1.5 units/h remains on vital AF at 57 cc/h. Antibiotics flaherty she is on cefepime and vancomycin patient is also receiving lactulose and rifaximin for her elevated ammonia level remains in the 80s today. Significantly improved compared to yesterday, patient is having significant amount of diarrhea, and her potassium has gone down significantly mostly because of the fact that she is producing significant amount of loose stools, plus the patient is receiving bicarb and receiving insulin at the same time. Potassium is as low as 1.4 today, and that being addressed accordingly. Sodium is 158, and her IV fluid was changed to D5W at 75 cc/h. Her liver enzymes are on the rise, Tapazole presently on hold, eventually she needs to go back on Tapazole, but I am waiting to see slight improvement in her liver profile. If the patient continues to have worsening in her liver profile, may have to be seen by GI we have no GI coverage today, or should consider sending the patient to a tertiary care center. Sputum is showing presumptive Staph aureus. Chest x-ray showed minimal left lower lobe atelectasis, doubt pneumonia. Patient is still spiking fevers, and she is empirically on cefepime and vancomycin. Blood cultures are negative. 12/02/2024: Patient is seen and examined at the bedside. Patient continues to be sedated and is on mechanical ventilation with settings of assist-control mode with rate of 16, tidal volume 450, FiO2 30%, PEEP of 5. ABG shows pH 7.39, PCO2 121, PO2 121, HCO3 27. Patient is currently on fentanyl drip running at 2 mcg/kg/h, Levophed has been off since this morning, insulin at 0.1 unit/kg/h and D5W at 100 cc/h. Patient remains on vital AF at 57 cc/h which is at goal. Her sputum cultures come back positive for MSSA. Blood cultures negative. Patient is currently on vancomycin and cefepime. Chest x-ray this morning shows similar left basilar airspace opacity suspicious for pneumonia as well as similar left pleural effusion compared to yesterday. Her urine output is good. Lab this morning shows sodium 161, potassium 2.7, chloride 127, bicarb 26, BUN 27, creatinine 0.45, WBC 19.3, hemoglobin 8.2, platelet count 122, AST 2197, ALT 898, ALP 224, glucose 257. Tapazole continue to remain on hold due to concerns for hepatotoxicity. Patient is being considered for transfer to [facility] for tertiary care with respect to her worsening liver enzyme. Patient has a history of alpha-1 antitrypsin deficiency. Strong family history of alpha-1 antitrypsin deficiency in mother who required liver transplant in the past. Objective - Vital Signs Vital signs: Vital Signs Temp 98.1 F 12/02/24 10:00 Pulse 118 H 12/02/24 10:30 Resp 18 12/02/24 10:30 BP 102/51 12/02/24 10:30 Pulse Ox 98 12/02/24 10:30 FiO2 30 12/02/24 08:00 Intake & Output 12/01/24 12/02/24 12/02/24 18:59 06:59 18:59 Intake Total 3633.208 3693.903 1503.428 Output Total 1815 2515 400 Balance 7980.007 4129.903 1103.428 Weight 106 kg Intake: IV 1786 814 12 0.9 ART LINE PRESSURE BAG 36 39 12 Cefepime 2 gm In Dextrose 100 400 5% in Water 100 ml @ 25 mls/hr IVPB Q12H [facility] Rx#: [id number] Dextrose 5% in Water 1, 750 375 000 ml @ 75 mls/hr IV . [id number] FCO with Potassium Chloride 40 meq Rx#:[id number] Phytonadione 5 mg In 50 Sodium Chloride 0.9% 50 ml @ 100 mls/hr IVPB ONCE STA Rx#:[id number] Potassium Chloride 20 meq 300 In Water For Injection 1 100ml.bag @ 50 mls/hr IVPB Q2HR [facility] Rx#: [id number] Sodium Chloride 0.9% 1, 50 000 ml @ 25 mls/hr IV . Q24H [facility] Rx#:[id number] Vancomycin 1,500 mg In 500 Sodium Chloride 0.9% 500 ml 500 ml @ 167 mls/hr IVPB ONCE ONE Rx#: [id number] Intake, IV Titration 913.737 6667.903 753.428 Amount Dextrose 5% in Water 1, 800 200 000 ml @ 100 mls/hr IV . Q10H [facility] Rx#:[id number] Dextrose 5% in Water 1, 200 000 ml @ 200 mls/hr IV . Q5H [facility] Rx#:[id number] Insulin Regular 100 unit 35.550 37.193 40.839 In Sodium Chloride 0.9% 100 ml @ 0.1 UNITS/KG/HR 7.636 mls/hr IV .[id number] [facility] Rx#:[id number] Norepinephrine 4 mg In 46.558 264.299 0 Sodium Chloride 0.9% 250 ml @ 0.03 MCG/KG/MIN 8. 184 mls/hr IV .Q24H [facility] Rx#:[id number] Vancomycin 1,250 mg In 250 Sodium Chloride 0.9% 250 ml @ 125 mls/hr IVPB Q8H [facility] Rx#:[id number] fentaNYL (PF). 1,000 mcg 82.1 137.411 62.589 In Sodium Chloride 0.9% 80 ml @ 0.5 MCG/KG/HR 3. 58 mls/hr IV .Q24H [facility] Rx #:[id number] Tube Feeding 645 728 228 Blood Product 426 Ffp 24 Pher Acda Cnt2 205 Unit [id number] Ffp 24 Pher Acda Cnt2 221 Unit [id number] Other 630 900 510 Output: Urine 715 1615 400 Stool 1100 900 Other: Voiding Method Indwelling Catheter Indwelling Catheter ABP, PAP, CO, CI - Last Documented Arterial Blood Pressure 104/42 - Exam General: Revealed a 44-year-old female intubated mechanically ventilated, s edated, on fentanyl . Derm: warm, dry, intact Head: atraumatic, normocephalic, symmetric, endotracheal tube is intact. Orogastric tube and endotracheal tube are intact Eyes: EOMI, anicteric sclera Mouth: no lip lesion, dry mucus membranes Cardiovascular: Tachycardic, no murmur, no S3 gallop, patient is not sinus tachycardia today. Lungs: Diminished breath sound bilaterally no rhonchi no wheezes Abdominal: soft, diffuse nonspecific tenderness to palpataion, no appreciable organomegaly Extremities: No clubbing edema or cyanosis Neuro: Could not assess, sedated, on fentanyl. Psych: Could not assess - Labs CBC & Chem 7: 12/02/24 05:45 12/02/24 09:10 Labs: Abnormal Lab Results - Last 24 Hours (Table) 12/01/24 12/01/24 12/01/24 Range/Units 11:18 12:05 12:08 WBC (4.50-10.00) 10*3/uL RBC (4.10-5.20) 10*6/uL Hgb (12.0-15.0) g/dL Hct (37.2-46.3) % Plt Count (140-440) 10*3/uL Immature Gran # (0.00-0.04) 10*3/uL Neutrophils # (1.80-7.70) 10*3/uL Monocytes # (0.20-1.00) 10*3/uL ABG pO2 (83-108) mmHg ABG HCO3 (21-25) mmol/L ABG Total CO2 (19-24) mmol/L ABG O2 Saturation (94-97) % Hemoglobin (11.4-16.0) gm/dL Sodium (137-145) mmol/L Potassium 2.9 L (3.5-5.1) mmol/L Chloride (98-107) mmol/L Carbon Dioxide (22-30) mmol/L BUN (7-17) mg/dL Creatinine (0.52-1.04) mg/dL Glucose (74-99) mg/dL POC Glucose (mg/dL) 266 H 308 H (70-110) mg/dL Calcium (8.4-10.2) mg/dL Total Bilirubin (0.2-1.3) mg/dL AST (14-36) U/L ALT (4-34) U/L Alkaline Phosphatase (38-126) U/L Ammonia (<30) umol/L Total Protein (6.3-8.2) g/dL Albumin (3.5-5.0) g/dL 12/01/24 12/01/24 12/01/24 Range/Units 13:07 14:10 14:12 WBC (4.50-10.00) 10*3/uL RBC (4.10-5.20) 10*6/uL Hgb (12.0-15.0) g/dL Hct (37.2-46.3) % Plt Count (140-440) 10*3/uL Immature Gran # (0.00-0.04) 10*3/uL Neutrophils # (1.80-7.70) 10*3/uL Monocytes # (0.20-1.00) 10*3/uL ABG pO2 (83-108) mmHg ABG HCO3 (21-25) mmol/L ABG Total CO2 (19-24) mmol/L ABG O2 Saturation (94-97) % Hemoglobin (11.4-16.0) gm/dL Sodium 162 H* (137-145) mmol/L Potassium 3.4 L (3.5-5.1) mmol/L Chloride 129 H (98-107) mmol/L Carbon Dioxide 32 H (22-30) mmol/L BUN 31 H (7-17) mg/dL Creatinine (0.52-1.04) mg/dL Glucose 309 H (74-99) mg/dL POC Glucose (mg/dL) 316 H 333 H (70-110) mg/dL Calcium 8.3 L (8.4-10.2) mg/dL Total Bilirubin (0.2-1.3) mg/dL AST (14-36) U/L ALT (4-34) U/L Alkaline Phosphatase (38-126) U/L Ammonia (<30) umol/L Total Protein (6.3-8.2) g/dL Albumin (3.5-5.0) g/dL 12/01/24 12/01/24 12/01/24 Range/Units 15:23 16:17 16:53 WBC (4.50-10.00) 10*3/uL RBC (4.10-5.20) 10*6/uL Hgb (12.0-15.0) g/dL Hct (37.2-46.3) % Plt Count (140-440) 10*3/uL Immature Gran # (0.00-0.04) 10*3/uL Neutrophils # (1.80-7.70) 10*3/uL Monocytes # (0.20-1.00) 10*3/uL ABG pO2 (83-108) mmHg ABG HCO3 (21-25) mmol/L ABG Total CO2 (19-24) mmol/L ABG O2 Saturation (94-97) % Hemoglobin (11.4-16.0) gm/dL Sodium (137-145) mmol/L Potassium (3.5-5.1) mmol/L Chloride (98-107) mmol/L Carbon Dioxide (22-30) mmol/L BUN (7-17) mg/dL Creatinine (0.52-1.04) mg/dL Glucose (74-99) mg/dL POC Glucose (mg/dL) 266 H 244 H 202 H (70-110) mg/dL Calcium (8.4-10.2) mg/dL Total Bilirubin (0.2-1.3) mg/dL AST (14-36) U/L ALT (4-34) U/L Alkaline Phosphatase (38-126) U/L Ammonia (<30) umol/L Total Protein (6.3-8.2) g/dL Albumin (3.5-5.0) g/dL 12/01/24 12/01/24 12/01/24 Range/Units 18:18 18:23 19:08 WBC (4.50-10.00) 10*3/uL RBC (4.10-5.20) 10*6/uL Hgb (12.0-15.0) g/dL Hct (37.2-46.3) % Plt Count (140-440) 10*3/uL Immature Gran # (0.00-0.04) 10*3/uL Neutrophils # (1.80-7.70) 10*3/uL Monocytes # (0.20-1.00) 10*3/uL ABG pO2 (83-108) mmHg ABG HCO3 (21-25) mmol/L ABG Total CO2 (19-24) mmol/L ABG O2 Saturation (94-97) % Hemoglobin (11.4-16.0) gm/dL Sodium 161 H* (137-145) mmol/L Potassium (3.5-5.1) mmol/L Chloride 128 H (98-107) mmol/L Carbon Dioxide 35 H (22-30) mmol/L BUN 31 H (7-17) mg/dL Creatinine (0.52-1.04) mg/dL Glucose 144 H (74-99) mg/dL POC Glucose (mg/dL) 147 H 130 H (70-110) mg/dL Calcium 8.3 L (8.4-10.2) mg/dL Total Bilirubin (0.2-1.3) mg/dL AST (14-36) U/L ALT (4-34) U/L Alkaline Phosphatase (38-126) U/L Ammonia (<30) umol/L Total Protein (6.3-8.2) g/dL Albumin (3.5-5.0) g/dL 12/01/24 12/01/24 12/01/24 Range/Units 19:52 19:55 20:30 WBC (4.50-10.00) 10*3/uL RBC (4.10-5.20) 10*6/uL Hgb (12.0-15.0) g/dL Hct (37.2-46.3) % Plt Count (140-440) 10*3/uL Immature Gran # (0.00-0.04) 10*3/uL Neutrophils # (1.80-7.70) 10*3/uL Monocytes # (0.20-1.00) 10*3/uL ABG pO2 (83-108) mmHg ABG HCO3 (21-25) mmol/L ABG Total CO2 (19-24) mmol/L ABG O2 Saturation (94-97) % Hemoglobin (11.4-16.0) gm/dL Sodium (137-145) mmol/L Potassium 5.2 H (3.5-5.1) mmol/L Chloride (98-107) mmol/L Carbon Dioxide (22-30) mmol/L BUN (7-17) mg/dL Creatinine (0.52-1.04) mg/dL Glucose (74-99) mg/dL POC Glucose (mg/dL) 143 H 160 H (70-110) mg/dL Calcium (8.4-10.2) mg/dL Total Bilirubin (0.2-1.3) mg/dL AST (14-36) U/L ALT (4-34) U/L Alkaline Phosphatase (38-126) U/L Ammonia (<30) umol/L Total Protein (6.3-8.2) g/dL Albumin (3.5-5.0) g/dL 12/01/24 12/01/24 12/01/24 Range/Units 21:45 21:50 22:48 WBC (4.50-10.00) 10*3/uL RBC (4.10-5.20) 10*6/uL Hgb (12.0-15.0) g/dL Hct (37.2-46.3) % Plt Count (140-440) 10*3/uL Immature Gran # (0.00-0.04) 10*3/uL Neutrophils # (1.80-7.70) 10*3/uL Monocytes # (0.20-1.00) 10*3/uL ABG pO2 (83-108) mmHg ABG HCO3 (21-25) mmol/L ABG Total CO2 (19-24) mmol/L ABG O2 Saturation (94-97) % Hemoglobin (11.4-16.0) gm/dL Sodium 162 H* (137-145) mmol/L Potassium 5.8 H (3.5-5.1) mmol/L Chloride 127 H (98-107) mmol/L Carbon Dioxide 33 H (22-30) mmol/L BUN 30 H (7-17) mg/dL Creatinine 0.49 L (0.52-1.04) mg/dL Glucose 242 H (74-99) mg/dL POC Glucose (mg/dL) 233 H 280 H (70-110) mg/dL Calcium 8.1 L (8.4-10.2) mg/dL Total Bilirubin (0.2-1.3) mg/dL AST (14-36) U/L ALT (4-34) U/L Alkaline Phosphatase (38-126) U/L Ammonia (<30) umol/L Total Protein (6.3-8.2) g/dL Albumin (3.5-5.0) g/dL 12/01/24 12/01/24 12/02/24 Range/Units 23:57 23:57 01:18 WBC (4.50-10.00) 10*3/uL RBC (4.10-5.20) 10*6/uL Hgb (12.0-15.0) g/dL Hct (37.2-46.3) % Plt Count (140-440) 10*3/uL Immature Gran # (0.00-0.04) 10*3/uL Neutrophils # (1.80-7.70) 10*3/uL Monocytes # (0.20-1.00) 10*3/uL ABG pO2 (83-108) mmHg ABG HCO3 (21-25) mmol/L ABG Total CO2 (19-24) mmol/L ABG O2 Saturation (94-97) % Hemoglobin (11.4-16.0) gm/dL Sodium (137-145) mmol/L Potassium 6.2 H* (3.5-5.1) mmol/L Chloride (98-107) mmol/L Carbon Dioxide (22-30) mmol/L BUN (7-17) mg/dL Creatinine (0.52-1.04) mg/dL Glucose (74-99) mg/dL POC Glucose (mg/dL) 307 H 325 H (70-110) mg/dL Calcium (8.4-10.2) mg/dL Total Bilirubin (0.2-1.3) mg/dL AST (14-36) U/L ALT (4-34) U/L Alkaline Phosphatase (38-126) U/L Ammonia (<30) umol/L Total Protein (6.3-8.2) g/dL Albumin (3.5-5.0) g/dL 12/02/24 12/02/24 12/02/24 Range/Units 01:46 01:50 02:51 WBC (4.50-10.00) 10*3/uL RBC (4.10-5.20) 10*6/uL Hgb (12.0-15.0) g/dL Hct (37.2-46.3) % Plt Count (140-440) 10*3/uL Immature Gran # (0.00-0.04) 10*3/uL Neutrophils # (1.80-7.70) 10*3/uL Monocytes # (0.20-1.00) 10*3/uL ABG pO2 (83-108) mmHg ABG HCO3 (21-25) mmol/L ABG Total CO2 (19-24) mmol/L ABG O2 Saturation (94-97) % Hemoglobin (11.4-16.0) gm/dL Sodium 159 H (137-145) mmol/L Potassium 5.3 H (3.5-5.1) mmol/L Chloride 124 H (98-107) mmol/L Carbon Dioxide (22-30) mmol/L BUN 29 H (7-17) mg/dL Creatinine (0.52-1.04) mg/dL Glucose 336 H (74-99) mg/dL POC Glucose (mg/dL) 341 H 325 H (70-110) mg/dL Calcium 7.9 L (8.4-10.2) mg/dL Total Bilirubin (0.2-1.3) mg/dL AST (14-36) U/L ALT (4-34) U/L Alkaline Phosphatase (38-126) U/L Ammonia (<30) umol/L Total Protein (6.3-8.2) g/dL Albumin (3.5-5.0) g/dL 12/02/24 12/02/24 12/02/24 Range/Units 03:56 04:17 04:52 WBC (4.50-10.00) 10*3/uL RBC (4.10-5.20) 10*6/uL Hgb (12.0-15.0) g/dL Hct (37.2-46.3) % Plt Count (140-440) 10*3/uL Immature Gran # (0.00-0.04) 10*3/uL Neutrophils # (1.80-7.70) 10*3/uL Monocytes # (0.20-1.00) 10*3/uL ABG pO2 121 H (83-108) mmHg ABG HCO3 27 H (21-25) mmol/L ABG Total CO2 28 H (19-24) mmol/L ABG O2 Saturation 99.5 H (94-97) % Hemoglobin 8.4 L (11.4-16.0) gm/dL Sodium (137-145) mmol/L Potassium (3.5-5.1) mmol/L Chloride (98-107) mmol/L Carbon Dioxide (22-30) mmol/L BUN (7-17) mg/dL Creatinine (0.52-1.04) mg/dL Glucose (74-99) mg/dL POC Glucose (mg/dL) 346 H 316 H (70-110) mg/dL Calcium (8.4-10.2) mg/dL Total Bilirubin (0.2-1.3) mg/dL AST (14-36) U/L ALT (4-34) U/L Alkaline Phosphatase (38-126) U/L Ammonia (<30) umol/L Total Protein (6.3-8.2) g/dL Albumin (3.5-5.0) g/dL 12/02/24 12/02/24 12/02/24 Range/Units 05:44 05:45 05:45 WBC 19.63 H (4.50-10.00) 10*3/uL RBC 2.96 L (4.10-5.20) 10*6/uL Hgb 8.2 L (12.0-15.0) g/dL Hct 25.5 L (37.2-46.3) % Plt Count 122 L (140-440) 10*3/uL Immature Gran # 0.12 H (0.00-0.04) 10*3/uL Neutrophils # 15.58 H (1.80-7.70) 10*3/uL Monocytes # 1.19 H (0.20-1.00) 10*3/uL ABG pO2 (83-108) mmHg ABG HCO3 (21-25) mmol/L ABG Total CO2 (19-24) mmol/L ABG O2 Saturation (94-97) % Hemoglobin (11.4-16.0) gm/dL Sodium 161 H* (137-145) mmol/L Potassium 2.7 L* (3.5-5.1) mmol/L Chloride 127 H (98-107) mmol/L Carbon Dioxide (22-30) mmol/L BUN 27 H (7-17) mg/dL Creatinine 0.45 L (0.52-1.04) mg/dL Glucose 257 H (74-99) mg/dL POC Glucose (mg/dL) 271 H (70-110) mg/dL Calcium (8.4-10.2) mg/dL Total Bilirubin 3.0 H (0.2-1.3) mg/dL AST 2197 H (14-36) U/L ALT 898 H (4-34) U/L Alkaline Phosphatase 224 H (38-126) U/L Ammonia (<30) umol/L Total Protein 5.0 L (6.3-8.2) g/dL Albumin 2.1 L (3.5-5.0) g/dL 12/02/24 12/02/24 12/02/24 Range/Units 05:45 06:50 08:16 WBC (4.50-10.00) 10*3/uL RBC (4.10-5.20) 10*6/uL Hgb (12.0-15.0) g/dL Hct (37.2-46.3) % Plt Count (140-440) 10*3/uL Immature Gran # (0.00-0.04) 10*3/uL Neutrophils # (1.80-7.70) 10*3/uL Monocytes # (0.20-1.00) 10*3/uL ABG pO2 (83-108) mmHg ABG HCO3 (21-25) mmol/L ABG Total CO2 (19-24) mmol/L ABG O2 Saturation (94-97) % Hemoglobin (11.4-16.0) gm/dL Sodium (137-145) mmol/L Potassium (3.5-5.1) mmol/L Chloride (98-107) mmol/L Carbon Dioxide (22-30) mmol/L BUN (7-17) mg/dL Creatinine (0.52-1.04) mg/dL Glucose (74-99) mg/dL POC Glucose (mg/dL) 220 H 224 H (70-110) mg/dL Calcium (8.4-10.2) mg/dL Total Bilirubin (0.2-1.3) mg/dL AST (14-36) U/L ALT (4-34) U/L Alkaline Phosphatase (38-126) U/L Ammonia 54 H (<30) umol/L Total Protein (6.3-8.2) g/dL Albumin (3.5-5.0) g/dL 12/02/24 12/02/24 12/02/24 Range/Units 09:10 09:14 10:27 WBC (4.50-10.00) 10*3/uL RBC (4.10-5.20) 10*6/uL Hgb (12.0-15.0) g/dL Hct (37.2-46.3) % Plt Count (140-440) 10*3/uL Immature Gran # (0.00-0.04) 10*3/uL Neutrophils # (1.80-7.70) 10*3/uL Monocytes # (0.20-1.00) 10*3/uL ABG pO2 (83-108) mmHg ABG HCO3 (21-25) mmol/L ABG Total CO2 (19-24) mmol/L ABG O2 Saturation (94-97) % Hemoglobin (11.4-16.0) gm/dL Sodium (137-145) mmol/L Potassium 3.1 L (3.5-5.1) mmol/L Chloride (98-107) mmol/L Carbon Dioxide (22-30) mmol/L BUN (7-17) mg/dL Creatinine (0.52-1.04) mg/dL Glucose (74-99) mg/dL POC Glucose (mg/dL) 182 H 134 H (70-110) mg/dL Calcium (8.4-10.2) mg/dL Total Bilirubin (0.2-1.3) mg/dL AST (14-36) U/L ALT (4-34) U/L Alkaline Phosphatase (38-126) U/L Ammonia (<30) umol/L Total Protein (6.3-8.2) g/dL Albumin (3.5-5.0) g/dL Microbiology - Last 24 Hours (Table) 11/29/24 08:45 Gram Stain - Final Sputum Sputum Culture - Final Staphylococcus aureus 11/28/24 19:34 Blood Culture - Preliminary Blood 11/30/24 03:45 Blood Culture - Preliminary Blood Assessment and Plan Assessment: Impression: Acute hypoxic respiratory failure secondary to hyperosmolar state and hyperglycemia with acute metabolic encephalopathy Acute hyperglycemia with hyper osmolar state Acute metabolic encephalopathy secondary to above Acute hepatic encephalopathy with elevated ammonia level Acute metabolic acidosis/lactic acidosis secondary to above History of mild to moderate aortic stenosis History of diabetes Sinus tachycardia Severe dehydration, on her initial presentation. History of hyperthyroidism on Tapazole, history of Graves' disease, TSH is low, free T4 is slightly elevated, patient is on Tapazole, presently on hold because of her liver enzymes as it is known that Tapazole could cause hepatotoxicity. Paroxysmal atrial fibrillation, presently in sinus tachycardia. History of alpha 1 antitrypsin deficiency MZ disease, may be contributing to her worsening liver enzymes History of gastroparesis Intermittent fevers, suspect ongoing sepsis and possibly septic shock on her initial presentation were initially required pressors, presently off pressors. Patient remains on broad-spectrum antibiotics. Sputum culture is showing presumptive staph blood cultures are negative. Profound hypokalemia, multifactorial mostly related to her bicarb drip, insulin infusion, lactulose induced diarrhea, Hypernatremia secondary to bicarb infusion and relative water deficit on her initial presentation. Recommendation: Patient remains critically ill Continue to monitor in ICU Aggressive management of hypokalemia and monitor potassium every 2 hours All labs and ABG reviewed today, hypokalemia is being addressed accordingly Vent setting changed; FiO2 decreased to 25% and tidal volume to 400 Continue beta-blockers Continue nutritional support/enteral feeding Continue ventilatory support. Continue lactulose and rifaximin, and monitor ammonia daily DC bicarb drip, continue insulin drip at low-dose for now. Free water deficit is around 8 L, increase her D5W from 100 cc/h to 200 cc/h Continue to hold Tapazole for now, restart once liver enzymes show improvement Continue GI DVT prophylaxis Continue Xarelto Continue antibiotics empirically Remains extremely quite ill Critical care time is 35 minutes. Will continue to follow
[2024-12-02 12:48] LABS: Glucose,Whole Blood 175 mg/dL (70-110)
[2024-12-02 13:08] VITALS: BMI 36.6
[2024-12-02 13:13] VITALS: BP 110/55; TEMP 99.3
[2024-12-02 13:40] LABS: Glucose,Whole Blood 207 mg/dL (70-110)
[2024-12-02 14:07] VITALS: PULSE 125; RESP 15
[2024-12-02] MEDS ORDERED: ceFAZolin 2 GM in DEXTROSE 5% IN WATER 50 ML IVPB SCH (16:00)
[2024-12-02] MEDS ORDERED: VANCOMYCIN 1,250 MG in SODIUM CHLORIDE 0.9% 250 ML IVPB SCH (22:00)
[2024-12-03 12:05] LABS: Glucose,Whole Blood 138 mg/dL (70-110)
--- NOTE | 2024-12-03 13:13 | P.PN ---
Subjective Progress Note Date: 12/02/24 Principal diagnosis: Reason for follow-up is pneumonia Patient is a 44-year-old female with a past medical history significant for atrial fibrillation hypothyroidism insulin-dependent diabetes mellitus on insulin pump patient has been brought into the hospital for eval uation of mental status changes on arrival with EMS patient was minimally responsive noticed to be in SVT ended up getting intubated admitted to ICU concerning for left lower lobe pneumonia prompting this consultation. On today's evaluation that is 12/02/2024, patient did have improvement in her fever pattern and has been afebrile this morning, patient remains to be debated on the vent FiO2 of 25% no significant purulent secretions in the ED or ABGs reported by nursing staff. Patient white count is 19.63, creatinine 0.45 culture with MSSA blood culture have been negative Objective - Vital Signs Vital signs: Vital Signs Temp 98.1 F 12/02/24 10:00 Pulse 118 H 12/02/24 10:30 Resp 18 12/02/24 10:30 BP 102/51 12/02/24 10:30 Pulse Ox 98 12/02/24 10:30 FiO2 30 12/02/24 08:00 Intake & Output 12/01/24 12/02/24 12/02/24 18:59 06:59 18:59 Intake Total 3633.208 3693.903 1443.428 Output Total 1815 2515 300 Balance 7886.176 7934.903 1143.428 Weight 106 kg Intake: IV 1786 814 9 0.9 ART LINE PRESSURE BAG 36 39 9 Cefepime 2 gm In Dextrose 100 400 5% in Water 100 ml @ 25 mls/hr IVPB Q12H [facility] Rx#: [id number] Dextrose 5% in Water 1, 750 375 000 ml @ 75 mls/hr IV . [id number] [facility] with Potassium Chloride 40 meq Rx#:[id number] Phytonadione 5 mg In 50 Sodium Chloride 0.9% 50 ml @ 100 mls/hr IVPB ONCE STA Rx#:[id number] Potassium Chloride 20 meq 300 In Water For Injection 1 100ml.bag @ 50 mls/hr IVPB Q2HR [facility] Rx#: [id number] Sodium Chloride 0.9% 1, 50 000 ml @ 25 mls/hr IV . Q24H [facility] Rx#:[id number] Vancomycin 1,500 mg In 500 Sodium Chloride 0.9% 500 ml 500 ml @ 167 mls/hr IVPB ONCE ONE Rx#: [id number] Intake, IV Titration 298.621 1660.903 753.428 Amount Dextrose 5% in Water 1, 800 200 000 ml @ 100 mls/hr IV . Q10H [facility] Rx#:[id number] Dextrose 5% in Water 1, 200 000 ml @ 200 mls/hr IV . Q5H [facility] Rx#:[id number] Insulin Regular 100 unit 35.550 37.193 40.839 In Sodium Chloride 0.9% 100 ml @ 0.1 UNITS/KG/HR 7.636 mls/hr IV .[id number] [facility] Rx#:[id number] Norepinephrine 4 mg In 46.558 264.299 0 Sodium Chloride 0.9% 250 ml @ 0.03 MCG/KG/MIN 8. 184 mls/hr IV .Q24H [facility] Rx#:[id number] Vancomycin 1,250 mg In 250 Sodium Chloride 0.9% 250 ml @ 125 mls/hr IVPB Q8H [facility] Rx#:[id number] fentaNYL (PF). 1,000 mcg 82.1 137.411 62.589 In Sodium Chloride 0.9% 80 ml @ 0.5 MCG/KG/HR 3. 58 mls/hr IV .Q24H [facility] Rx #:[id number] Tube Feeding 627 741 171 Blood Product 426 Ffp 24 Pher Acda Cnt2 205 Unit [id number] Ffp 24 Pher Acda Cnt2 221 Unit [id number] Other 630 900 510 Output: Urine 715 1615 300 Stool 1100 900 Other: Voiding Method Indwelling Catheter Indwelling Catheter ABP, PAP, CO, CI - Last Documented Arterial Blood Pressure 104/42 - Exam GENERAL DESCRIPTION: Middle-age female intubated on the vent RESPIRATORY SYSTEM: Unlabored breathing , decreased breath sounds at bases HEART: S1 S2 regular rate and rhythm , ABDOMEN: Soft , no tenderness EXTREMITIES: No edema feet - Labs CBC & Chem 7: 12/02/24 05:45 12/02/24 12:20 Labs: Abnormal Lab Results - Last 24 Hours (Table) 12/01/24 12/01/24 12/01/24 Range/Units 10:26 10:54 11:18 WBC (4.50-10.00) 10*3/uL RBC (4.10-5.20) 10*6/uL Hgb (12.0-15.0) g/dL Hct (37.2-46.3) % Plt Count (140-440) 10*3/uL Immature Gran # (0.00-0.04) 10*3/uL Neutrophils # (1.80-7.70) 10*3/uL Monocytes # (0.20-1.00) 10*3/uL ABG pO2 (83-108) mmHg ABG HCO3 (21-25) mmol/L ABG Total CO2 (19-24) mmol/L ABG O2 Saturation (94-97) % Hemoglobin (11.4-16.0) gm/dL Sodium 162 H* (137-145) mmol/L Potassium 2.6 L* (3.5-5.1) mmol/L Chloride 126 H (98-107) mmol/L Carbon Dioxide (22-30) mmol/L BUN 29 H (7-17) mg/dL Creatinine (0.52-1.04) mg/dL Glucose 252 H (74-99) mg/dL POC Glucose (mg/dL) 266 H 266 H (70-110) mg/dL Calcium 8.0 L (8.4-10.2) mg/dL Total Bilirubin (0.2-1.3) mg/dL AST (14-36) U/L ALT (4-34) U/L Alkaline Phosphatase (38-126) U/L Ammonia (<30) umol/L Total Protein (6.3-8.2) g/dL Albumin (3.5-5.0) g/dL 12/01/24 12/01/24 12/01/24 Range/Units 12:05 12:08 13:07 WBC (4.50-10.00) 10*3/uL RBC (4.10-5.20) 10*6/uL Hgb (12.0-15.0) g/dL Hct (37.2-46.3) % Plt Count (140-440) 10*3/uL Immature Gran # (0.00-0.04) 10*3/uL Neutrophils # (1.80-7.70) 10*3/uL Monocytes # (0.20-1.00) 10*3/uL ABG pO2 (83-108) mmHg ABG HCO3 (21-25) mmol/L ABG Total CO2 (19-24) mmol/L ABG O2 Saturation (94-97) % Hemoglobin (11.4-16.0) gm/dL Sodium (137-145) mmol/L Potassium 2.9 L (3.5-5.1) mmol/L Chloride (98-107) mmol/L Carbon Dioxide (22-30) mmol/L BUN (7-17) mg/dL Creatinine (0.52-1.04) mg/dL Glucose (74-99) mg/dL POC Glucose (mg/dL) 308 H 316 H (70-110) mg/dL Calcium (8.4-10.2) mg/dL Total Bilirubin (0.2-1.3) mg/dL AST (14-36) U/L ALT (4-34) U/L Alkaline Phosphatase (38-126) U/L Ammonia (<30) umol/L Total Protein (6.3-8.2) g/dL Albumin (3.5-5.0) g/dL 12/01/24 12/01/24 12/01/24 Range/Units 14:10 14:12 15:23 WBC (4.50-10.00) 10*3/uL RBC (4.10-5.20) 10*6/uL Hgb (12.0-15.0) g/dL Hct (37.2-46.3) % Plt Count (140-440) 10*3/uL Immature Gran # (0.00-0.04) 10*3/uL Neutrophils # (1.80-7.70) 10*3/uL Monocytes # (0.20-1.00) 10*3/uL ABG pO2 (83-108) mmHg ABG HCO3 (21-25) mmol/L ABG Total CO2 (19-24) mmol/L ABG O2 Saturation (94-97) % Hemoglobin (11.4-16.0) gm/dL Sodium 162 H* (137-145) mmol/L Potassium 3.4 L (3.5-5.1) mmol/L Chloride 129 H (98-107) mmol/L Carbon Dioxide 32 H (22-30) mmol/L BUN 31 H (7-17) mg/dL Creatinine (0.52-1.04) mg/dL Glucose 309 H (74-99) mg/dL POC Glucose (mg/dL) 333 H 266 H (70-110) mg/dL Calcium 8.3 L (8.4-10.2) mg/dL Total Bilirubin (0.2-1.3) mg/dL AST (14-36) U/L ALT (4-34) U/L Alkaline Phosphatase (38-126) U/L Ammonia (<30) umol/L Total Protein (6.3-8.2) g/dL Albumin (3.5-5.0) g/dL 12/01/24 12/01/24 12/01/24 Range/Units 16:17 16:53 18:18 WBC (4.50-10.00) 10*3/uL RBC (4.10-5.20) 10*6/uL Hgb (12.0-15.0) g/dL Hct (37.2-46.3) % Plt Count (140-440) 10*3/uL Immature Gran # (0.00-0.04) 10*3/uL Neutrophils # (1.80-7.70) 10*3/uL Monocytes # (0.20-1.00) 10*3/uL ABG pO2 (83-108) mmHg ABG HCO3 (21-25) mmol/L ABG Total CO2 (19-24) mmol/L ABG O2 Saturation (94-97) % Hemoglobin (11.4-16.0) gm/dL Sodium (137-145) mmol/L Potassium (3.5-5.1) mmol/L Chloride (98-107) mmol/L Carbon Dioxide (22-30) mmol/L BUN (7-17) mg/dL Creatinine (0.52-1.04) mg/dL Glucose (74-99) mg/dL POC Glucose (mg/dL) 244 H 202 H 147 H (70-110) mg/dL Calcium (8.4-10.2) mg/dL Total Bilirubin (0.2-1.3) mg/dL AST (14-36) U/L ALT (4-34) U/L Alkaline Phosphatase (38-126) U/L Ammonia (<30) umol/L Total Protein (6.3-8.2) g/dL Albumin (3.5-5.0) g/dL 12/01/24 12/01/24 12/01/24 Range/Units 18:23 19:08 19:52 WBC (4.50-10.00) 10*3/uL RBC (4.10-5.20) 10*6/uL Hgb (12.0-15.0) g/dL Hct (37.2-46.3) % Plt Count (140-440) 10*3/uL Immature Gran # (0.00-0.04) 10*3/uL Neutrophils # (1.80-7.70) 10*3/uL Monocytes # (0.20-1.00) 10*3/uL ABG pO2 (83-108) mmHg ABG HCO3 (21-25) mmol/L ABG Total CO2 (19-24) mmol/L ABG O2 Saturation (94-97) % Hemoglobin (11.4-16.0) gm/dL Sodium 161 H* (137-145) mmol/L Potassium (3.5-5.1) mmol/L Chloride 128 H (98-107) mmol/L Carbon Dioxide 35 H (22-30) mmol/L BUN 31 H (7-17) mg/dL Creatinine (0.52-1.04) mg/dL Glucose 144 H (74-99) mg/dL POC Glucose (mg/dL) 130 H 143 H (70-110) mg/dL Calcium 8.3 L (8.4-10.2) mg/dL Total Bilirubin (0.2-1.3) mg/dL AST (14-36) U/L ALT (4-34) U/L Alkaline Phosphatase (38-126) U/L Ammonia (<30) umol/L Total Protein (6.3-8.2) g/dL Albumin (3.5-5.0) g/dL 12/01/24 12/01/24 12/01/24 Range/Units 19:55 20:30 21:45 WBC (4.50-10.00) 10*3/uL RBC (4.10-5.20) 10*6/uL Hgb (12.0-15.0) g/dL Hct (37.2-46.3) % Plt Count (140-440) 10*3/uL Immature Gran # (0.00-0.04) 10*3/uL Neutrophils # (1.80-7.70) 10*3/uL Monocytes # (0.20-1.00) 10*3/uL ABG pO2 (83-108) mmHg ABG HCO3 (21-25) mmol/L ABG Total CO2 (19-24) mmol/L ABG O2 Saturation (94-97) % Hemoglobin (11.4-16.0) gm/dL Sodium 162 H* (137-145) mmol/L Potassium 5.2 H 5.8 H (3.5-5.1) mmol/L Chloride 127 H (98-107) mmol/L Carbon Dioxide 33 H (22-30) mmol/L BUN 30 H (7-17) mg/dL Creatinine 0.49 L (0.52-1.04) mg/dL Glucose 242 H (74-99) mg/dL POC Glucose (mg/dL) 160 H (70-110) mg/dL Calcium 8.1 L (8.4-10.2) mg/dL Total Bilirubin (0.2-1.3) mg/dL AST (14-36) U/L ALT (4-34) U/L Alkaline Phosphatase (38-126) U/L Ammonia (<30) umol/L Total Protein (6.3-8.2) g/dL Albumin (3.5-5.0) g/dL 12/01/24 12/01/24 12/01/24 Range/Units 21:50 22:48 23:57 WBC (4.50-10.00) 10*3/uL RBC (4.10-5.20) 10*6/uL Hgb (12.0-15.0) g/dL Hct (37.2-46.3) % Plt Count (140-440) 10*3/uL Immature Gran # (0.00-0.04) 10*3/uL Neutrophils # (1.80-7.70) 10*3/uL Monocytes # (0.20-1.00) 10*3/uL ABG pO2 (83-108) mmHg ABG HCO3 (21-25) mmol/L ABG Total CO2 (19-24) mmol/L ABG O2 Saturation (94-97) % Hemoglobin (11.4-16.0) gm/dL Sodium (137-145) mmol/L Potassium (3.5-5.1) mmol/L Chloride (98-107) mmol/L Carbon Dioxide (22-30) mmol/L BUN (7-17) mg/dL Creatinine (0.52-1.04) mg/dL Glucose (74-99) mg/dL POC Glucose (mg/dL) 233 H 280 H 307 H (70-110) mg/dL Calcium (8.4-10.2) mg/dL Total Bilirubin (0.2-1.3) mg/dL AST (14-36) U/L ALT (4-34) U/L Alkaline Phosphatase (38-126) U/L Ammonia (<30) umol/L Total Protein (6.3-8.2) g/dL Albumin (3.5-5.0) g/dL 12/01/24 12/02/24 12/02/24 Range/Units 23:57 01:18 01:46 WBC (4.50-10.00) 10*3/uL RBC (4.10-5.20) 10*6/uL Hgb (12.0-15.0) g/dL Hct (37.2-46.3) % Plt Count (140-440) 10*3/uL Immature Gran # (0.00-0.04) 10*3/uL Neutrophils # (1.80-7.70) 10*3/uL Monocytes # (0.20-1.00) 10*3/uL ABG pO2 (83-108) mmHg ABG HCO3 (21-25) mmol/L ABG Total CO2 (19-24) mmol/L ABG O2 Saturation (94-97) % Hemoglobin (11.4-16.0) gm/dL Sodium (137-145) mmol/L Potassium 6.2 H* (3.5-5.1) mmol/L Chloride (98-107) mmol/L Carbon Dioxide (22-30) mmol/L BUN (7-17) mg/dL Creatinine (0.52-1.04) mg/dL Glucose (74-99) mg/dL POC Glucose (mg/dL) 325 H 341 H (70-110) mg/dL Calcium (8.4-10.2) mg/dL Total Bilirubin (0.2-1.3) mg/dL AST (14-36) U/L ALT (4-34) U/L Alkaline Phosphatase (38-126) U/L Ammonia (<30) umol/L Total Protein (6.3-8.2) g/dL Albumin (3.5-5.0) g/dL 12/02/24 12/02/24 12/02/24 Range/Units 01:50 02:51 03:56 WBC (4.50-10.00) 10*3/uL RBC (4.10-5.20) 10*6/uL Hgb (12.0-15.0) g/dL Hct (37.2-46.3) % Plt Count (140-440) 10*3/uL Immature Gran # (0.00-0.04) 10*3/uL Neutrophils # (1.80-7.70) 10*3/uL Monocytes # (0.20-1.00) 10*3/uL ABG pO2 (83-108) mmHg ABG HCO3 (21-25) mmol/L ABG Total CO2 (19-24) mmol/L ABG O2 Saturation (94-97) % Hemoglobin (11.4-16.0) gm/dL Sodium 159 H (137-145) mmol/L Potassium 5.3 H (3.5-5.1) mmol/L Chloride 124 H (98-107) mmol/L Carbon Dioxide (22-30) mmol/L BUN 29 H (7-17) mg/dL Creatinine (0.52-1.04) mg/dL Glucose 336 H (74-99) mg/dL POC Glucose (mg/dL) 325 H 346 H (70-110) mg/dL Calcium 7.9 L (8.4-10.2) mg/dL Total Bilirubin (0.2-1.3) mg/dL AST (14-36) U/L ALT (4-34) U/L Alkaline Phosphatase (38-126) U/L Ammonia (<30) umol/L Total Protein (6.3-8.2) g/dL Albumin (3.5-5.0) g/dL 12/02/24 12/02/24 12/02/24 Range/Units 04:17 04:52 05:44 WBC (4.50-10.00) 10*3/uL RBC (4.10-5.20) 10*6/uL Hgb (12.0-15.0) g/dL Hct (37.2-46.3) % Plt Count (140-440) 10*3/uL Immature Gran # (0.00-0.04) 10*3/uL Neutrophils # (1.80-7.70) 10*3/uL Monocytes # (0.20-1.00) 10*3/uL ABG pO2 121 H (83-108) mmHg ABG HCO3 27 H (21-25) mmol/L ABG Total CO2 28 H (19-24) mmol/L ABG O2 Saturation 99.5 H (94-97) % Hemoglobin 8.4 L (11.4-16.0) gm/dL Sodium (137-145) mmol/L Potassium (3.5-5.1) mmol/L Chloride (98-107) mmol/L Carbon Dioxide (22-30) mmol/L BUN (7-17) mg/dL Creatinine (0.52-1.04) mg/dL Glucose (74-99) mg/dL POC Glucose (mg/dL) 316 H 271 H (70-110) mg/dL Calcium (8.4-10.2) mg/dL Total Bilirubin (0.2-1.3) mg/dL AST (14-36) U/L ALT (4-34) U/L Alkaline Phosphatase (38-126) U/L Ammonia (<30) umol/L Total Protein (6.3-8.2) g/dL Albumin (3.5-5.0) g/dL 12/02/24 12/02/24 12/02/24 Range/Units 05:45 05:45 05:45 WBC 19.63 H (4.50-10.00) 10*3/uL RBC 2.96 L (4.10-5.20) 10*6/uL Hgb 8.2 L (12.0-15.0) g/dL Hct 25.5 L (37.2-46.3) % Plt Count 122 L (140-440) 10*3/uL Immature Gran # 0.12 H (0.00-0.04) 10*3/uL Neutrophils # 15.58 H (1.80-7.70) 10*3/uL Monocytes # 1.19 H (0.20-1.00) 10*3/uL ABG pO2 (83-108) mmHg ABG HCO3 (21-25) mmol/L ABG Total CO2 (19-24) mmol/L ABG O2 Saturation (94-97) % Hemoglobin (11.4-16.0) gm/dL Sodium 161 H* (137-145) mmol/L Potassium 2.7 L* (3.5-5.1) mmol/L Chloride 127 H (98-107) mmol/L Carbon Dioxide (22-30) mmol/L BUN 27 H (7-17) mg/dL Creatinine 0.45 L (0.52-1.04) mg/dL Glucose 257 H (74-99) mg/dL POC Glucose (mg/dL) (70-110) mg/dL Calcium (8.4-10.2) mg/dL Total Bilirubin 3.0 H (0.2-1.3) mg/dL AST 2197 H (14-36) U/L ALT 898 H (4-34) U/L Alkaline Phosphatase 224 H (38-126) U/L Ammonia 54 H (<30) umol/L Total Protein 5.0 L (6.3-8.2) g/dL Albumin 2.1 L (3.5-5.0) g/dL 12/02/24 12/02/24 12/02/24 Range/Units 06:50 08:16 09:10 WBC (4.50-10.00) 10*3/uL RBC (4.10-5.20) 10*6/uL Hgb (12.0-15.0) g/dL Hct (37.2-46.3) % Plt Count (140-440) 10*3/uL Immature Gran # (0.00-0.04) 10*3/uL Neutrophils # (1.80-7.70) 10*3/uL Monocytes # (0.20-1.00) 10*3/uL ABG pO2 (83-108) mmHg ABG HCO3 (21-25) mmol/L ABG Total CO2 (19-24) mmol/L ABG O2 Saturation (94-97) % Hemoglobin (11.4-16.0) gm/dL Sodium (137-145) mmol/L Potassium 3.1 L (3.5-5.1) mmol/L Chloride (98-107) mmol/L Carbon Dioxide (22-30) mmol/L BUN (7-17) mg/dL Creatinine (0.52-1.04) mg/dL Glucose (74-99) mg/dL POC Glucose (mg/dL) 220 H 224 H (70-110) mg/dL Calcium (8.4-10.2) mg/dL Total Bilirubin (0.2-1.3) mg/dL AST (14-36) U/L ALT (4-34) U/L Alkaline Phosphatase (38-126) U/L Ammonia (<30) umol/L Total Protein (6.3-8.2) g/dL Albumin (3.5-5.0) g/dL 12/02/24 12/02/24 Range/Units 09:14 10:27 WBC (4.50-10.00) 10*3/uL RBC (4.10-5.20) 10*6/uL Hgb (12.0-15.0) g/dL Hct (37.2-46.3) % Plt Count (140-440) 10*3/uL Immature Gran # (0.00-0.04) 10*3/uL Neutrophils # (1.80-7.70) 10*3/uL Monocytes # (0.20-1.00) 10*3/uL ABG pO2 (83-108) mmHg ABG HCO3 (21-25) mmol/L ABG Total CO2 (19-24) mmol/L ABG O2 Saturation (94-97) % Hemoglobin (11.4-16.0) gm/dL Sodium (137-145) mmol/L Potassium (3.5-5.1) mmol/L Chloride (98-107) mmol/L Carbon Dioxide (22-30) mmol/L BUN (7-17) mg/dL Creatinine (0.52-1.04) mg/dL Glucose (74-99) mg/dL POC Glucose (mg/dL) 182 H 134 H (70-110) mg/dL Calcium (8.4-10.2) mg/dL Total Bilirubin (0.2-1.3) mg/dL AST (14-36) U/L ALT (4-34) U/L Alkaline Phosphatase (38-126) U/L Ammonia (<30) umol/L Total Protein (6.3-8.2) g/dL Albumin (3.5-5.0) g/dL Microbiology - Last 24 Hours (Table) 11/29/24 08:45 Gram Stain - Final Sputum Sputum Culture - Final Staphylococcus aureus 11/28/24 19:34 Blood Culture - Preliminary Blood 11/30/24 03:45 Blood Culture - Preliminary Blood Assessment and Plan (1) Pneumonia Status: Acute Code(s): J18.9 - PNEUMONIA, UNSPECIFIED ORGANISM SNOMED Code(s): 062934130 (2) Sepsis Status: Acute Code(s): A41.9 - SEPSIS, UNSPECIFIED ORGANISM SNOMED Code(s): 19302258 Plan: 1patient presented the hospital with sepsis in this patient who did have fever tachycardia elevated white count meeting currently for SIRS/sepsis source is pneumonia in this patient admitted to hospital with decreased level of responsiveness requiring intubation concern for possible aspiration pneumonia 2-blood and sputum culture have been obtained,, blood cultures are pending sputum is growing MSSA 3patient did have improvement in her fever pattern culture have been finalized with MSSA we will discontinue vancomycin and cefepime start the patient on cefazolin 2 g every 8 hours Mother at the bedside question answered Dictation was produced using A[employer] dictation software. please excuse any gramm atical, word or spelling errors. Time with Patient: Less than 30
== END 2024-12-02 14:31 | disposition short-term general hospital (02) | DRG 871 ==
LOC: EC 11:49 → 2SICU 14:18
PROVIDERS: ADMIT Family Medicine; ATTEND Family Medicine
PROC: 5A1945Z Respiratory Ventilation, 24-96 Consecutive Hours (ICD-10-PCS; principal; 2024-11-27)
PROC: 0BH17EZ Insertion of Endotracheal Airway into Trachea, Via Natural or Artificial Opening (ICD-10-PCS; 2024-11-27)
PROC: 3E033XZ Introduction of Vasopressor into Peripheral Vein, Percutaneous Approach (ICD-10-PCS; 2024-11-27)
PROC: 4A10X4Z Monitoring of Central Nervous Electrical Activity, External Approach (ICD-10-PCS; 2024-11-28)
DX: A41.01 Sepsis due to Methicillin susceptible Staphylococcus aureus (principal); E10.10 Type 1 diabetes mellitus with ketoacidosis without coma; G93.41 Metabolic encephalopathy; J96.01 Acute respiratory failure with hypoxia; J15.211 Pneumonia due to Methicillin susceptible Staphylococcus aureus; E72.20 Disorder of urea cycle metabolism, unspecified; I47.10 Supraventricular tachycardia, unspecified; K75.9 Inflammatory liver disease, unspecified; J44.0 Chronic obstructive pulmonary disease with (acute) lower respiratory infection; I27.20 Pulmonary hypertension, unspecified; E10.43 Type 1 diabetes mellitus with diabetic autonomic (poly)neuropathy; K76.82 Hepatic encephalopathy; E03.9 Hypothyroidism, unspecified; E05.90 Thyrotoxicosis, unspecified without thyrotoxic crisis or storm; I34.0 Nonrheumatic mitral (valve) insufficiency; I48.92 Unspecified atrial flutter; E87.0 Hyperosmolality and hypernatremia; I48.0 Paroxysmal atrial fibrillation; E88.01 Alpha-1-antitrypsin deficiency; Z79.4 Long term (current) use of insulin; E86.0 Dehydration; E87.6 Hypokalemia; K31.84 Gastroparesis; Z79.01 Long term (current) use of anticoagulants; Z79.899 Other long term (current) drug therapy; Z82.49 Family history of ischemic heart disease and other diseases of the circulatory system; Z91.199 Patient's noncompliance with other medical treatment and regimen due to unspecified reason; Z96.41 Presence of insulin pump (external) (internal); Z79.890 Hormone replacement therapy; R74.01 Elevation of levels of liver transaminase levels; T47.1X5A Adverse effect of other antacids and anti-gastric-secretion drugs, initial encounter; X58.XXXA Exposure to other specified factors, initial encounter; R00.1 Bradycardia, unspecified; I35.0 Nonrheumatic aortic (valve) stenosis
CPT/HCPCS: 36415; 36600; 70450; 71045; 71250; 76705; 80048; 80051; 80053; 80061; 80074; 80202; 80306; 81003; 82009; 82140; 82533; 82565; 82607; 82746; 82803; 82805; 82947; 83010; 83036; 83605; 83735; 84100; 84132; 84145; 84439; 84443; 84484; 84520; 85025; 85027; 85610; 85730; 86850; 86900; 86901; 87040; 87070; 87077; 87186; 87205; 87449; 87635; 87636; 93005; 93306; 93308; 94002; 94003; 94640; 95822; 96361; 96365; 96366; 96375; 99291